=== PATIENT | female | born 1945 | race Caucasian/White ===

== ENCOUNTER 2019-03-15 20:09 | Emergency (ER) | payer MEDICARE, MEDICAID, SELFPAY ==
[2019-03-15 20:10] VITALS: BP 171/84; PULSE 86; RESP 18; TEMP 37.2; O2SAT 98; BMI 36.9
--- NOTE | 2019-03-15 20:23 | RAD_ITS ---
STUDY: X-RAY - PELVIS REASON FOR EXAM: Female, 73 years old. Left leg pain TECHNIQUE: One view of the pelvis was obtained. COMPARISON: 10/16/2015. FINDINGS: There are new severe dystrophic changes of the left femoral head with bony fragmentation of the femoral head. There is Lateral subluxation of the hip. There are degenerative changes of the lumbar spine. There is a total right hip prosthesis. There is significant generalized osteopenia. RAD/Pelvis 1 or 2 Views IMPRESSION: New severe dystrophic changes of the left femoral head with bony fragmentation of the femoral head. There is lateral subluxation of the hip. There are adjacent soft tissue ossifications. Total right hip prosthesis generalized osteopenia Electronically Signed: Major Manzano, at 21:09 EDT Tel , Service support ,
--- NOTE | 2019-03-15 20:40 | RAD_ITS ---
STUDY: X-RAY - LEFT FEMUR REASON FOR STUDY: Female, 73 years old. Left hip pain TECHNIQUE: AP and lateral view(s) of the femur. COMPARISON: 10/16/2015. FINDINGS: There are new severe dystrophic changes of the left femoral head with bony fragmentation of the femoral head. There is Lateral subluxation of the hip. There are degenerative changes of the lumbar spine. There is significant generalized osteopenia. There is mild soft tissue edema. There is a total knee prosthesis. RAD/Femur Min 2 Views IMPRESSION: new severe dystrophic changes of the left femoral head with bony fragmentation of the femoral head. There is Lateral subluxation of the hip Degenerative changes of the lumbar spine Significant generalized osteopenia Mild soft tissue edema Total knee prosthesis Electronically Signed: Major Manzano, at 21:12 EDT Tel , Service support ,
--- NOTE | 2019-03-15 21:40 | ED.VISSUMM ---
- ER Visit Summary Date of Service: 03/15/19 Chief Complaint: Left hip pain. History of Present Illness: The patient is a 73 F known history of arthritis. Saw Dr. Chan in the last several weeks he told her she had degenerative arthritis and she got some type of injection needed for pain her hip injection. Said that lasted about a day and she is had increasing pain the last 2 to 3 weeks. Has had some other falls. Worse with walking. No fever. She is had a prior left knee replacement but no left hip surgery. She had a prior right hip replacement. Physical Examination: Well-appearing older female no acute distress. Vital signs stable afebrile. HEENT exam atraumatic. Nontender. Neck nontender. Lungs clear to auscultation bilaterally. Heart regular rhythm no murmur. Chest wall nontender. Abdomen soft nontender. Extremities moves all 4. Neurovascular intact. Neurologically she is awake and alert. Acute low back pain specifically left hip there is no shortening or rotation. She has had pain with range of motion. The knee is not swollen or red. She is able to flex and extend the left knee. Thank you Test Results: Pelvis x-ray shows severe degenerative arthritis of the left hip. Left femur x-ray 2 views shows prosthetic knee replacement. Emergency Department Course and Treatment: Patient my opinion need to follow-up with orthopedic physician. She is going need a hip replacement I will leave it up to her and her orthopedic physician when that can take place. Should be written for limited [place] for pain. 20 no refill. Repeat exam patient is doing well at 2140. She and I went over her x-rays. Treatment Plan: Low back pain meds and follow-up with her orthopedic physician. Disposition: Discharge Impression: Acute on chronic hip pain secondary to degenerative arthritis. This note was generated with [employer] dictation software. It may contain incorrect words, spelling, and punctuation that were not noted in review of the chart prior to signing ED Disposition - Plan for ED Patient: Referrals: Ayleen Tam MD [Primary Care Provider] -
--- NOTE | 2019-03-15 21:43 | ED.DEP ---
ED Disposition - Plan for ED Patient: Disposition: Home or Assisted Living Instructions: ED Degenerative Joint Disease Prescriptions: Hydrocodone/Acetaminophen [[place] 5-325 Tablet] 1 each PO Q6H PRN PRN #20 tablet PRN Reason: Pain Referrals: Coy Chan MD [STAFF PHYSICIAN] - As soon as possible Additional Instructions: Follow-up with Dr. Chan of orthopedics for discussion of possible left hip replacement. Next [place] for pain.
--- NOTE | 2019-03-15 21:46 | DCINST.ED_ITS ---
ED Disposition - Plan for ED Patient: Disposition: Home or Assisted Living Instructions: ED Degenerative Joint Disease Prescriptions: Hydrocodone/Acetaminophen [[place] 5-325 Tablet] 1 each PO Q6H PRN PRN #20 tablet PRN Reason: Pain Referrals: Coy Chan MD [STAFF PHYSICIAN] - As soon as possible Additional Instructions: Follow-up with Dr. Chan of orthopedics for discussion of possible left hip replacement. Next [place] for pain.
[2019-03-15 21:53] VITALS: BP 156/69; PULSE 82; RESP 16; O2SAT 94
== END 2019-03-15 22:32 | disposition home or self-care (01) ==
PROVIDERS: Emergency Provider Emergency Medicine; Family Provider Internal Medicine; PCP Internal Medicine
DX: M25.552 Pain in left hip (principal); G89.29 Other chronic pain; M16.12 Unilateral primary osteoarthritis, left hip; D64.9 Anemia, unspecified; Z96.652 Presence of left artificial knee joint; Z96.641 Presence of right artificial hip joint; Z86.14 Personal history of Methicillin resistant Staphylococcus aureus infection; Z79.899 Other long term (current) drug therapy
CPT/HCPCS: 72170; 73552; 99283

== ENCOUNTER → 2019-07-01 06:28 | Outpatient (CLI) | payer MEDICARE, MEDICAID, SELFPAY ==
--- NOTE | 2019-07-01 14:33 | STRESSREP ---
Stress Test Report Date: July 01, 2019 Procedure: Pharmacologic stress nuclear imaging study Indications: Preop evaluation Consent: Per the patient Procedure: The patient underwent pharmacologic (Regadenoson) evaluation with a peak heart rate of 84 beats per minute (57 %predicted maximal heart rate) and a peak blood pressure of 148/80 mmHg. The baseline ECG demonstrated normal sinus rhythm, no significant ST-T changes. EKG during lexiscan infusion revealed no significant ischemic changes. EKG post infusion revealed no significant ischemic changes [There were no cardiac dysrhythmias pretest, during pharmacologic infusion, or recovery]. [There was no complaint of chest discomfort during pharmacologic infusion or recovery]. The examination was discontinued secondary to completion of protocol. Impression: 1. Lexiscan stress test test is negative for Lexiscan infusion induced EKG changes of ischemia. 2. Lexiscan stress test test is negative for Lexiscan infusion induced chest pain. 3. Results of the nuclear portion of the test is as below Myocardial perfusion imaging study: Technique: The patient was injected with 10.6 millicuries of technetium 99m Cardiolite and subsequently rest SPECT Cardiolite nuclear imaging was obtained in the horizontal long, vertical long, and short axis views. The patient underwent pharmacologic (Regadenoson) evaluation. Please see above for details. The patient was injected with 31.5 millicuries of technetium 99m Cardiolite and subsequently stress SPECT Cardiolite nuclear imaging was obtained in the horizontal long, vertical long, and short axis views. A gated Cardiolite study at peak stress was obtained. Interpretation: Rest and stress SPECT Cardiolite nuclear imaging status post realignment, normalization, and attenuation correction demonstrate normal myocardial radioisotope uptake at rest. There is mildly decreased radioisotope uptake in the apex and the stress images these findings are suggestive of mild apical and distal anterior ischemia. Gated images reveal no significant regional wall motion abnormalities. The reported LVEF is greater than 70%. Impression: 1. There is mild apical and distal anterior ischemia. 2. Estimated ejection fraction is greater than 70%. This note was generated with [employer]ation software. It may contain incorrect words, spelling, and punctuation that were not noted in checking the note before signing.
== END ==
PROVIDERS: Family Provider Internal Medicine; PCP Internal Medicine; Referring Provider Clinical Nurse Specialist; Visit Provider Clinical Nurse Specialist
DX: Z01.810 Encounter for preprocedural cardiovascular examination (principal); Z13.6 Encounter for screening for cardiovascular disorders
CPT/HCPCS: 78452; 93017; A9500; A4216; J2785

== ENCOUNTER 2019-07-16 06:49 | Day surgery (SDC) | payer MEDICARE, MEDICAID, SELFPAY ==
[2019-07-13 14:56] VITALS: BMI 34.2
--- NOTE | 2019-07-13 16:20 | RAD_ITS ---
STUDY: X-RAY CHEST REASON FOR EXAM: Female, 73 years old. Abnormal stress TECHNIQUE: Frontal and lateral views of the chest. COMPARISON: None. FINDINGS: Calcified granuloma in the right upper lobe. Chronic interstitial lung changes without superimposed acute alveolar disease. There is no demonstrated pleural abnormality. Normal size heart. Normal mediastinum and kassidy. Normal visualized pulmonary arteries. Normal visualized aortic arch and descending thoracic aorta. There are diffuse degenerative changes of the visualized thoracic spine. There is degenerative osteoarthritis of the bilateral shoulders. There is no demonstrated abnormality of the visualized soft tissue structures of the upper abdomen. RAD/Chest PA and Lateral IMPRESSION: Chronic interstitial lung changes without superimposed acute alveolar disease. Electronically Signed: Emmanuel Jones MD at 16:41 EDT Tel , Service support ,
[2019-07-13 17:20] LABS: Absolute Lymphocyte Count 1.48 X10^3/uL (0.83-4.51); Basophil# 0.02 X10^3/uL; Basophil% 0.3 % (0-1); Eosinophil# 0.09 X10^3/uL; Eosinophils% 1.3 % (0-5); Hematocrit 36.9 % (37-47); Hemoglobin 11.9 g/dL (12.0-15.0); Lymphocyte # 1.48 X10^3/ul (4.0); Mean Corp Hgb Conc 32.2 g/dL (32-36); Mean Corpuscular Hgb 30.1 pg (27.0-32.0); Mean Corpuscular Volume 93.2 fL (81-99); Mean Platelet Vol. 9.2 fl (6.2-12.0); Monocyte# 0.47 X10^3/uL; Monocyte% 6.7 % (0-10); NRBC Flagged by Analyzer 0 % (0-5); Neutrophil # 4.96 X10^3/uL (2.7-7.7); Neutrophil % 70.3 % (47-70); Platelet Count 281 K/mm3 (150-450); RBC Distribution Width CV 12.4 % (11.6-14.6); RBC Distribution Width SD 43.2 fl (35.1-43.9); Red Blood Count 3.96 M/mm3 (4.2-5.4); White Blood Count 7.1 K/mm3 (4.4-11.0)
[2019-07-13 17:35] LABS: AST(SGOT) 13 U/L (15-37); Alanine Aminotransfer ALT/SGPT 16 U/L (13-56); Albumin, Serum 3.9 g/dL (3.2-5.0); Alkaline Phosphatase 124 U/L (45-117); Anion Gap 6 (5-15); BUN 21 mg/dL (7-18); BUN/Creat Ratio 29.3 RATIO (10-20); Bilirubin, Direct 0.11 mg/dL (0.00-0.30); Chloride 98 mmol/L (98-107); Creatinine, Serum 0.72 mg/dL (0.55-1.02); EST Glomerular Filtration Rate 84 mL/min (>60); Est Glom Filt Rate - Afr Amer 102 mL/min (>60); Globulin 3.6 g/dL (2.2-4.2); Glucose 83 mg/dL (74-106); Potassium 3.9 mmol/L (3.5-5.1); Protein, Total 7.5 g/dL (6.4-8.2); Sodium Level 131 mmol/L (136-145)
[2019-07-15 07:41] VITALS: BMI 34.2
[2019-07-16] VITALS (28 sets, daily range): BP systolic 127–162; BP diastolic 55–78; PULSE 77–86; RESP 11–25; TEMP 36.3–37.2; O2SAT 94–98; BMI 34.8
--- NOTE | 2019-07-16 07:50 | PCM.HP.BLA ---
Problem List (1) Abnormal nuclear stress test Status: Acute Comment: Mild apical and distal anterior ischemia per Pharm Nuc stress test done 07/01/2019 @[facility] (2) Pre-op examination Status: Acute History and Physical Date of Admission: 07/16/19 [facility] [address] [place] [address] OFFICE VISIT Date of Service: 07/13/19 MR#: [id number] Acct: [id number] Name: BRADLY ARRIAGA Rep #: [id number] : 1945 Provider: Jovani Sosa MD Age/Sex: 73/F Location: [facility] [place] Status: Signed HPI HPI History of Present Illness Surgical H&P: Yes Details: Mrs. Arriaga is a very pleasant 73-year-old Smoking female who quit in 1982After [id number] smoking history, female with history of hypertension, obstructive sleep apnea, hypothyroidism, and Degenerative arthritis. She was referred to us by her PCP after undergoing a Preoperative risk stratification for a hip replacement Lexiscan/MPI On 07/01/2019 with the conflicting results. According to the impression the Lexiscan was negative for ischemia however in the report that showed mildly decreased radioisotope in the apex and stress images suggested of mild apical and distal anterior ischemia. Her overall ejection fraction was preserved at 70%. Patient denies any chest pain, angina, palpitations or shortness of breath. Her stress test is done for risk stratification for upcoming hip surgery.In February 2019 the patient tripped and fell, injuring her left hip, which was originally diagnosed as bursitis and received a steroid injection. When this did not improve, the patient was evaluated by Dr. Chan and apparently she requires left hip surgery. She had previously undergone right hip replacement, as well as left knee replacement, 5 and 2 years ago respectively. Prior to her fall, she denied any symptoms of chest pain, angina and was fairly active despite her arthritis. In our office today her blood pressure is 140/70, pulse is 96 and regular. Her physical exam demonstrates clear lungs bilaterally, regular rate and rhythm, normal S1/S2, no S3 or S4. No murmurs are detected. No edema noted. Her lipids as of 04/22/2019 showed an HDL of 87 and LDL of 137.EKG dated 07/01/2019 shows normal sinus rhythm, normal axis, normal intervals, no evidence of previous myocardial infarction.Echocardiogram is pending. Intake Vital Signs 07/13/19 Height 5 ft 5 in 07/13/19 Weight: 206 lb 07/13/19 Body Mass Index (BMI) 34.2 07/13/19 Blood Pressure 140/70 H 07/13/19 Blood Pressure Location Lt brachial 07/13/19 Respiratory Rate 20 H 07/13/19 Pulse Rate 96 07/13/19 Pulse Source Auscultation Intake Visit Reasons: Normal stress / PCP wants pt to see card. Wrecking Mechanic Required: No Is patient in pain?: No Allergies cat dander Allergy (Intermediate, Verified 07/13/19 15:04) nasal congestion ciprofloxacin [From Cipro] Allergy (Verified 07/13/19 15:04) Hives ciprofloxacin HCl [From Cipro] Allergy (Verified 07/13/19 15:04) Hives clindamycin Allergy (Verified 07/13/19 15:04) Rash doxycycline Allergy (Verified 07/13/19 15:04) Other latex Allergy (Verified 07/13/19 15:04) Hives nitrofurantoin [From Macrobid] Allergy (Verified 07/13/19 15:04) Other Penicillins Allergy (Verified 07/13/19 15:04) Shortness of breath vortioxetine [From Brintellix] Adverse Reaction (Intermediate, Verified 07/13/19 15:04) GI upset methotrexate Adverse Reaction (Unknown, Verified 07/13/19 15:04) unknown trazodone Adverse Reaction (Verified 07/13/19 15:04) Other Medications Levothyroxine [Synthroid] 75 mcg PO DAILY 12/23/13 [History Confirmed 07/12/19] Multivitamins,Therapeutic [Multivitamin] 1 tab PO DAILY 10/16/15 [History Confirmed 07/12/19] Esomeprazole Mag Trihydrate [Nexium] 40 mg PO BID 03/15/19 [History Confirmed 07/12/19] Hydrocodone/Acetaminophen [[place] 5-325 Tablet] 1 ea PO Q6H PRN PRN #20 tab 03/15/19 [Rx] Losartan Potassium [Cozaar] 50 mg PO DAILY 03/15/19 [History Confirmed 07/12/19] Meloxicam 15 mg PO DAILY 03/15/19 [History Confirmed 07/12/19] acetaminophen 500 mg tablet 500 mg PO .COMPLEX PRN 07/12/19 [History Confirmed 07/12/19] abttjru-khcweygexrkep-vzzylaix 250 mg-250 mg-65 mg tablet 2 tab PO Q6H PRN 07/12/19 [History Confirmed 07/12/19] diphenhydramine 25 mg capsule 25 mg PO QDAY PRN cap 07/12/19 [History Confirmed 07/12/19] ferrous gluconate 324 mg (38 mg iron) tablet 324 mg PO DAILY 07/12/19 [History Confirmed 07/12/19] folic acid 400 mcg tablet 400 mcg PO DAILY 07/12/19 [History Confirmed 07/12/19] ketoconazole 2 % shampoo 1 applic TOPICAL DAILY PRN ml 07/12/19 [History Confirmed 07/12/19] prednisone 10 mg tablet 10 mg PO .COMPLEX 07/12/19 [History Confirmed 07/12/19] zolpidem 10 mg tablet 10 mg PO QHS PRN tab 07/12/19 [History Confirmed 07/12/19] duloxetine 60 mg capsule,delayed release 60 mg PO DAILY cap 07/13/19 [History Confirmed 07/13/19] PFSH Medical History Abnormal nuclear stress test (Acute) Obstructive sleep apnea (Chronic) Family History (Updated 07/13/19 @ 15:04 by Sylvie Cole) Father , Hodgkin's age 29 Hodgkin disease Mother Lung cancer Social History (Updated 07/13/19 @ 15:31 by Jovani Sosa MD) Smoking Status: Former smoker quit date: 10/27/82 pack-years: 20 ROS Const Const: Positive for other (Needs preop for left hip replacement, ? abn nuclear stress.); negative for fatigue, weakness, body ache, fever(s), headache(s), chills, frequent falls, night sweats, daytime sleepiness, difficulty sleeping, excessive sweating, weight gain, weight loss, increased appetite, poor appetite or anorexia Eyes Eyes: Negative for blind spots, loss of peripheral vision, transient loss of vision, blurry vision, change in vision, double vision, floaters, tunnel vision or other ENT ENT: Negative for headache(s), dizziness, hearing loss, tinnitus, Nosebleed/epistaxis, balance problems, post nasal drip, lip swelling, tongue swelling, bleeding gums, hoarseness, neck pain, dry mouth or other Cardio Chest Pain: No Palpitations: No Edema: Right (chronic from previous hip and knee replacment) Muscle aches with walking: None Resp Respiratory: Positive for SOB with activity (Only occasionalOut of shape from severe arthritis, cannot walk); negative for SOB at rest, SOB orthopnea\SOB lying down, Cough, Coughing up blood/hemoptysis, chest congestion, pain on inspiration, snoring, stridor, wheezing, crackles, paroxysmal nocturnal dyspnea or other GI GI: Negative nausea, vomiting, heartburn, constipation, belching, bloating, cramping, vomiting blood/hematemesis, bright, red blood in stools, black,tarry stools, loose stools, Difficulty Swallowing or other : Negative for hematuria, frequent nighttime urination/ nocturia, erectile dysfunction or abnormal vaginal bleeding Musc Musc: Negative for muscle aches/ myalgia, muscle weakness, joint pain or balance problems Skin Skin: Negative redness, non-healing lesions, rash, unusual bruising, skin ulcer, wounds, jaundice or other Neuro Neuro: Negative for dizziness, lightheadedness, near syncope, syncope, orthostatic symptoms, frequent falls, headache(s), weakness, confusion, memory loss, restless legs, blurry vision, double vision, vertigo, seizures, lack of coordination or other [place] Hematologic/Lymphatic: Negative for easy bleeding, easy bruising, enlarged lymph nodes or other Endo Endo: Negative for fatigue, cold intolerance, heat intolerance, excessive sweating, flushing, increased thirst/drinking, increased hunger, hair loss, hair growth or other Psych Psych: Negative for anxiety, depression, thoughts of harming anyone, thoughts of harming yourself, visual hallucinations, panic attacks or audible hallucinations Allergy Allergy/Immunology: Negative for throat swelling, Negative for tongue swelling, Negative for hives, Negative for rash, Negative for lip swelling Cardiology Exam Const Appearance: cooperative, healthy appearing and no acute distress Nutritional Appearance: well nourished Orientation: alert, oriented x3 and oriented to person Head Head: normal to inspection, normocephalic and atraumatic Nose: external nose normal Face and Sinus: face symmetric Mouth: oral mucosae normal Eyes General: appearance normal, both eyes and all related structures Eyelids: eyelids normal Conjunctivae: conjunctivae normal Pupils: PERRL and normal by confrontation EOM: EOM intact bilaterally Neck Neck: normal visual inspection and full ROM Carotids: normal carotid upstroke Chest Chest inspection: normal inspection of the chest Auscultation: Bilateral: Clear to Auscultation Cardio Palpation: normal PMI Rate: regular rate Rhythm: regular rhythm Heart sounds: S1 normal and S2 normal GI GI: normal to inspection, no hepatosplenomegaly and bowel sounds present Neuro General: alert, awake, oriented x3, CN's II-XI intact bilaterally and moves all extremities Skin Skin: no rashes or lesions noted Extremities Pulses: Normal: Right Femoral Pulse, Left Femoral Pulse, Right Dorsalis Pedis Pulse, Left Dorsalis Pedis Pulse, Right Posterior Tibial Pulse, Left Posterior Tibial Pulse, Right Radial Pulse, Left Radial Pulse Lower Extremity Edema: None: Bilateral Psych Psychological: normal affect Assessment & Plan 1. Abnormal nuclear stress test R94.39 Mild apical and distal anterior ischemia per Pharm Nuc stress test done 07/01/2019 @[facility] Plan 1. Abnormal nuclear stress test: The patient underwent a preoperative non-walking nuclear stress test which was reportedly abnormal for anterior and apical ischemia. Her EF was estimated to be 70%. It is difficult to determine if the patient has any anginal symptoms as she has been unable to really walk since February 2019. She apparently requires left hip replacement, as a result of her fall in February 2019. In addition she has several risk factors for coronary occlusive disease including age, hypertension, hypercholesterolemia, and previous smoking. In order to confirm/deny the presence of significant coronary obstructive disease prior to her hip surgery in order to ensure safeguard her against acute coronary syndrome perioperatively, I recommended the patient undergo a diagnostic left heart catheterization. The risks/benefits of the procedure including specific attention to lack of on-site surgical back-up, were thoroughly explained to the patient and informed consent was obtained. In addition she will undergo a 2D echo with Doppler to document her LV function, pulmonary pressures given her obstructive sleep apnea, and valvular status. She will be loaded with Plavix 300 mg x 1 now followed by 75 mg p.o. daily as well as baby aspirin 81 mg a day.Should she have no significant occlusive disease, we will discontinue her Plavix as well as her baby aspirin as she is on extra strength Excedrin for her joint aches. She has no significant coronary occlusive disease she will be deemed low risk for noncardiac surgery. Orders Orders: 12 Lead EKG performed by [facility] Today Left Heart Cath/COR/LV Percut Today Basic Metabolic Profile (BMP) Today CBC W/Diff, Automated Today Chest PA and Lateral Today 2. Obstructive sleep apnea G47.33 Per sleep study done 05/02/2016 Dr. Emmanuel Barnett [facility] Plan 2. Obstructive sleep apnea: Patient uses her CPAP intermittent knee. I encouraged her to do so on a regular basis. Orders Orders: 12 Lead EKG performed by [facility] Today Echo Complete Today Chest PA and Lateral Today 3. Hyperlipidemia E78.5 Plan 3. Hyperlipidemia: Once we get a reading for her coronary arteries, we will make decision regarding cholesterol management. Would recommend statin based medications assuming it does not cause myalgias. 4. Return to office in 6 months. This note was generated using a voice recognition system and there may be incorrect words, spelling or punctuation that were not noted when reviewing the office note prior to saving. Plan Detail Other Orders Orders: 12 Lead EKG performed by [facility] Today I10 Prothrombin Time w/INR Today S82.102A Chest PA and Lateral Today I10 Lipid Profile Today E78.00 Liver Profile Today E78.00 Follow Up +6M (Ian) Coding Level of Care Code Off vis,new,level 4 Diagnoses Abnormal nuclear stress test R94.39 Obstructive sleep apnea G47.33 Hyperlipidemia E78.5 Coding Level of Care Code Off vis,new,level 4 Diagnoses Abnormal nuclear stress test R94.39 Obstructive sleep apnea G47.33 Hyperlipidemia E78.5 Supplemental Info Supplemental Information Diagnostics Electrocardiogram 10/16/15 Stress Test Nuclear Medicine 07/01/19 Stress Test 07/01/19 07/13/19 1531 <Electronically signed by Jovani Sosa MD> Date Jovani Sosa MD Cosigner Signature: Date (if applicable) CC: Ayleen Tam MD ~ Interventional cardiology addendum: Patient seen and examined and no interim changes since her last visit in the office. The risks/benefits of the procedure were thoroughly explained the patient and informed consent was obtained including specific attention to lack of on-site surgical back-up, and the patient is agreed to proceed. Cardiac catheterization results to follow.
[2019-07-16 08:40] LABS: ACT Activated Clotting Time 208 sec (74-137)
--- NOTE | 2019-07-16 09:04 | EKG12_ITS ---
Test Reason : AM Blood Pressure : / mmHG Vent. Rate : 079 BPM Atrial Rate : 079 BPM P-R Int : 162 ms QRS Dur : 094 ms QT Int : 420 ms P-R-T Axes : 019 -34 038 degrees QTc Int : 481 ms Normal sinus rhythm Left axis deviation Abnormal ECG Confirmed by AMA SALAZAR, SARAI ([id number]), editor at large JOSELYN TERAN ([id number]) on 07/21/2019 11:08:03 AM Referred By: Jovani Sosa Confirmed By:SARAI SERRATO MD
[2019-07-16] MEDS: 0.9% Normal Saline 1,000 ML 150 ML IV (09:27)
--- NOTE | 2019-07-16 09:39 | PCM.DC.CCA ---
Discharge Diet: Low fat/ Low Cholesterol Discharge Activity: Return to Normal Activity May shower in (days): 1 Lifting Restrictions: 10 pounds and also avoid any pushing or pulling for 3 days after your test. Call your doctor if your incision/area has: Continuous Slow Oozing, Sudden Increased Bleeding, Increased Pain/ Swelling, Increased Redness, Foul Smelling Discharge, Swelling at the incision site Call your doctor if you observe: Fever of 101 or Higher, Shortness of breath, Chest pain Remove Dressing in (days):: 1 Additional Dressing/Incision Instructions:: Keep the dressing (bandage) on until the next morning. You may then shower, but do not take a tub bath for 5 days after your test. It is normal to have some tenderness and discomfort at the puncture site. Sometimes bruising also occurs. However, if pain, numbness, or coldness occurs below the puncture site (in your leg, toes, arms or fingers) call your doctor at once. You may have a small, marble sized knot at the puncture site. This is normal. Do not rub it. It will go away in 4-6 weeks. Bleeding can occur from the area where the puncture was done. Blood may spurt or drip from the site. If blood spurts, apply pressure right away to stop bleeding and call 911. Although rare, bleeding into the tissue (hematoma) can also occur. If this happens, a large, firm area goose egg under the skin will appear. If any of these occur, lie down as flat as you can and have someone apply firm pressure to the cath site with a gauze pad or a clean washcloth for 10-15 minutes. Call 911 or go to the Emergency Department. Additional Instructions: You will need to stay on your Plavix for at least one year prior to stopping it, Aspirin will be life long. At your next appt we will talk more about cardiac rehab. Allergies/Adverse Reactions: Allergies cat dander Allergy (Intermediate, Verified 07/13/19 15:04) nasal congestion ciprofloxacin [From Cipro] Allergy (Verified 07/13/19 15:04) Hives ciprofloxacin HCl [From Cipro] Allergy (Verified 07/13/19 15:04) Hives clindamycin Allergy (Verified 07/13/19 15:04) Rash doxycycline Allergy (Verified 07/13/19 15:04) Other latex Allergy (Verified 07/13/19 15:04) Hives nitrofurantoin [From Macrobid] Allergy (Verified 07/13/19 15:04) Other Penicillins Allergy (Verified 07/13/19 15:04) Shortness of breath vortioxetine [From Brintellix] Adverse Reaction (Intermediate, Verified 07/13/19 15:04) GI upset methotrexate Adverse Reaction (Unknown, Verified 07/13/19 15:04) unknown trazodone Adverse Reaction (Verified 07/13/19 15:04) Other [place] FEELING Medications to take at Discharge Levothyroxine [Synthroid] 75 mcg PO DAILY 12/23/13 Multivitamins,Therapeutic [Multivitamin] 1 tab PO DAILY 10/16/15 Esomeprazole Mag Trihydrate [Nexium] 40 mg PO BID 03/15/19 Hydrocodone/Acetaminophen [[place] 5-325 Tablet] 1 each PO Q6H PRN PRN #20 tablet 03/15/19 Losartan Potassium [Cozaar] 50 mg PO DAILY 03/15/19 Meloxicam 15 mg PO DAILY 03/15/19 acetaminophen 500 mg tablet 500 mg PO .COMPLEX PRN 07/12/19 luoniot-ibcksdjvbcjol-phkycefi 250 mg-250 mg-65 mg tablet 2 tab PO Q6H PRN 07/12/19 diphenhydramine 25 mg capsule 25 mg PO QDAY PRN cap 07/12/19 ferrous gluconate 324 mg (38 mg iron) tablet 324 mg PO DAILY 07/12/19 folic acid 400 mcg tablet 400 mcg PO DAILY 07/12/19 ketoconazole 2 % shampoo 1 applic TOPICAL DAILY ml 07/12/19 prednisone 10 mg tablet 10 mg PO .COMPLEX 07/12/19 zolpidem 10 mg tablet 10 mg PO QHS PRN tab 07/12/19 aspirin 81 mg tablet,delayed release 81 mg PO DAILY #30 tab 07/13/19 clopidogrel 75 mg tablet 75 mg PO .COMPLEX #30 tab 07/13/19 duloxetine 60 mg capsule,delayed release 60 mg PO DAILY cap 07/13/19 Primary Care Physician: Alyeen Tam MD [Primary Care Provider] - Please follow up with your Primary Care Physician in: 2-4 weeks Test Results: Test results from this visit will be discussed in further detail at your follow-up appointment, if applicable. Please Follow Up With: Savi Schaeffer PA When: 08/05/2019 at 1030 Cardiac Rehabilitation Info Cardiac Rehabilitation Program Information: Cardiac Rehabilitation is important for patients like you who are recovering from a heart problem. Cardiac rehabilitation programs are recognized as integral to the continued care of the patient with coronary heart disease. The cardiac rehabilitation program is designed to optimize a patient's physical, psychological, and social functioning. Health life care planner work in cardiac rehabilitation programs and assist you with getting the treatments you need to get stronger and healthier - like exercise, healthy eating habits, and medications. Cardiac rehabilitation has been show to help people with heart problems live longer and have better life enjoyment than people who do not go to cardiac rehabilitation. Please contact the Cardiac Rehabilitation Program at [facility] at in two weeks if you have not heard from them.
--- NOTE | 2019-07-16 10:00 | EKG12_ITS ---
Test Reason : POST PCI Blood Pressure : / mmHG Vent. Rate : 082 BPM Atrial Rate : 082 BPM P-R Int : 172 ms QRS Dur : 100 ms QT Int : 420 ms P-R-T Axes : 052 -31 026 degrees QTc Int : 490 ms Normal sinus rhythm Left axis deviation Prolonged QT Poor R-Wave Progression Abnormal ECG Confirmed by AMA SALAZAR, SARAI ([id number]), art editor JOSELYN TERAN ([id number]) on 07/21/2019 11:09:24 AM Referred By: Jovani Sosa Confirmed By:SARAI SERRATO MD
[2019-07-16 10:46] LABS: ACT Activated Clotting Time 169 sec (74-137)
--- NOTE | 2019-07-16 10:59 | CRPHASE1_ITS ---
Patient Communication PHII Cardiac Rehab Discussed with Patient:: Yes Guide to Cardiac Rehab Given to Patient:: Yes Cardiac Rehab Facility Choice List Given to Patient:: Yes - chooses [facility] if able Choice Program [facility] CR PHII:: Communication Given to CR, Refer to [facility] Choice Program Other:: Communication Given to CR, With permission faxed order and referral information Refer Phase II Cardiac Rehab:: Yes Sessions:: 36 sessions - 3 days/wk, 12 weeks Risk Factors/Lifestyle Smoking Status: Former smoker Hx Obesity: Yes Height: 1.65 m Weight:: 94.9 kg BMI: 34.8 Family History: Family History (Last Updated 07/13/19 @ 15:04 by Sylvie Cole) Father Hodgkin disease Mother Lung cancer Phase I Education Given On:: [place], Nutrition, Antiplatelet medication, CHF, Smoking cessation, Diabetes - Type I, Diabetes - Type II Issues Affecting Care:: None Knowledge of Condition:: Yes Medical/Surgical History Hypertension:: Yes Cardiac Rehabilitation Info Cardiac Rehabilitation Program Information: Cardiac Rehabilitation is important for patients like you who are recovering from a heart problem. Cardiac rehabilitation programs are recognized as integral to the continued care of the patient with coronary heart disease. The cardiac rehabilitation program is designed to optimize a patient's physical, psychological, and social functioning. Health primary care nurse work in cardiac rehabilitation programs and assist you with getting the treatments you need to get stronger and healthier - like exercise, healthy eating habits, and medications. Cardiac rehabilitation has been show to help people with heart problems live longer and have better life enjoyment than people who do not go to cardiac rehabilitation. Please contact the Cardiac Rehabilitation Program at [facility] at in two weeks if you have not heard from them.
--- NOTE | 2019-07-16 11:03 | CRPH1.INSTRU ---
General Education CAD and cardiac anatomy and function:: Patient communicates acknowledgment Explanation of diagnoses and procedures:: Patient communicates acknowledgment Sign/Symptoms of SC:: Patient communicates acknowledgment Antiplatelet therapy: Patient communicates acknowledgment Proper use of NTG-SL: Not instructed Emergency procedures and activation of EMS: Patient communicates acknowledgment Compliance of all prescribed medications: Patient communicates acknowledgment Smoking Nicotine/Smoking Response Code:: Patient communicates acknowledgment Dyslipidemia Dyslipidemia Response Code:: Patient communicates acknowledgment Overweight/Obesity Patient Overweight/Obesity Risk Factors Are:: Obesity - > or = 30 Recommendations Include:: Weight loss of 5-10%, Reduced calorie diet, Exercise 5-7 times/week Overweight/Obesity:: Patient communicates acknowledgment Hypertension Recommendations Include:: Maintain BP <130/85, BP <130/80 if diabetic, DASH dietary guidelines, Decrease/maintain normal body weight, Moderation of ETOH Hypertension:: Patient communicates acknowledgment Heart Disease Heart Disease Response Code:: Patient communicates acknowledgment Diabetes Diabetes:: Patient communicates acknowledgment Metabolic Syndrome Metabolic Syndrome Response Code:: Patient communicates acknowledgment Sedentary Sedentary Response Code:: Patient communicates acknowledgment Stress Stress Response Code:: Patient communicates acknowledgment
[2019-07-16] MEDS: 0.9% NaCl Peripheral Flush Adult/Peds IV (11:38)
[2019-07-16] MEDS: Multivitamins,Therapeutic Tablet 1 TABLET PO (13:24)
[2019-07-16] MEDS: Meloxicam 15 MG Tablet PO (13:24)
[2019-07-16] MEDS: Pantoprazole Sodium 40 MG Tablet PO ×2 (13:24→22:20)
[2019-07-16] MEDS: Folic Acid 1 MG Tablet 0.5 MG PO (13:24)
[2019-07-16] MEDS: Ferrous Gluconate 324 MG Tablet PO (13:25)
[2019-07-16] MEDS: Atorvastatin Calcium 20 MG Tablet PO (22:20)
[2019-07-17] VITALS (15 sets, daily range): BP systolic 100–147; BP diastolic 39–78; PULSE 75–84; RESP 8–19; TEMP 36.6–37.2; O2SAT 93–96
[2019-07-17 04:12] LABS: Hematocrit 34.2 % (37-47); Hemoglobin 11.2 g/dL (12.0-15.0); Mean Corp Hgb Conc 32.7 g/dL (32-36); Mean Corpuscular Hgb 30.3 pg (27.0-32.0); Mean Corpuscular Volume 92.4 fL (81-99); Mean Platelet Vol. 8.9 fl (6.2-12.0); Platelet Count 236 K/mm3 (150-450); RBC Distribution Width CV 12.6 % (11.6-14.6); RBC Distribution Width SD 42.8 fl (35.1-43.9); White Blood Count 5.2 K/mm3 (4.4-11.0)
[2019-07-17 04:22] LABS: Scan Indicated on CBC? Y/N NO
[2019-07-17 05:00] LABS: ALB/GLOB Ratio 1.1 RATIO (0.9-2.4); AST(SGOT) 14 U/L (15-37); Alanine Aminotransfer ALT/SGPT 17 U/L (13-56); Albumin, Serum 3.3 g/dL (3.2-5.0); Alkaline Phosphatase 105 U/L (45-117); Anion Gap 6 (5-15); BUN 14 mg/dL (7-18); BUN/Creat Ratio 22.4 RATIO (10-20); Calcium,Total 8.5 mg/dL (8.5-10.1); Chloride 101 mmol/L (98-107); Cholesterol 203 mg/dL (200); Creatinine, Serum 0.62 mg/dL (0.55-1.02); EST Glomerular Filtration Rate 99 mL/min (>60); Est Glom Filt Rate - Afr Amer 120 mL/min (>60); Estimated Creatinine Clearance 41.97 ml/min; Glucose 86 mg/dL (74-106); High Density Lipoprotein 61 mg/dL; Potassium 3.7 mmol/L (3.5-5.1); Protein, Total 6.3 g/dL (6.4-8.2); Sodium Level 136 mmol/L (136-145); Triglycerides 113 mg/dL; Very Low Density Lipoprotein 23 mg/dL (5-40)
[2019-07-17] MEDS: Levothyroxine 75 MCG Tablet PO (05:39)
[2019-07-17] MEDS: Aspirin E.C. 81 MG Tablet PO (08:33)
[2019-07-17] MEDS: Pantoprazole Sodium 40 MG Tablet PO (08:33)
[2019-07-17] MEDS: Clopidogrel Bisulfate 75 MG Tablet PO (08:34)
[2019-07-17] MEDS: Folic Acid 1 MG Tablet 0.5 MG PO (08:34)
[2019-07-17] MEDS: Ferrous Gluconate 324 MG Tablet PO (08:34)
[2019-07-17] MEDS: DULoxetine Hcl 60 MG Capsule PO (08:36)
[2019-07-17] MEDS: Multivitamins,Therapeutic Tablet 1 TABLET PO (08:36)
[2019-07-17] MEDS: Meloxicam 15 MG Tablet PO (08:36)
[2019-07-17] MEDS: Losartan Potassium 50 MG Tablet PO (08:37)
--- NOTE | 2019-07-17 12:49 | PN.CARD_ITS ---
Subjectve: Patient denies any symptoms of chest discomfort or shortness of breath she cannot ambulate second severe arthritis the left hip joint. She is eager to be discharged home and she informs me that she has home health care comes in 3 days a week and she can able to get around and take care of her active daily living with no limitations in spite of severe pain that she has in her left hip joint. She has an appointment to see her primary care physician on Friday which she plans to keep Objective: Vital Signs Temp Pulse Resp BP Pulse Ox 97.8 F 79 16 128/56 H 95 07/17/19 08:00 07/17/19 11:54 07/17/19 11:00 07/17/19 11:00 07/17/19 11:00 Oxygen Delivery Method Room Air Weight: 209 lb 14.081 oz Body Mass Index (BMI) 34.8 Intake and Output for Last 24 Hours 07/15/19 07/16/19 07/17/19 23:59 23:59 23:59 Intake Total 1360 / 1840 540 / 540 Output Total 2000 / 2550 900 / 900 Balance -640 / -710 -360 / -360 General: Healthy Appearing, Oriented x 3 HEENT: PERRL Neck: Supple Lungs: Clear to auscultation Cardiovascular: Regular Rhythm Vascular: No Carotid Bruits Abdomen: Bowel Sounds Present, Soft, Non Tender Extremities: No edema Neurological: No Focal Motor or Sensory Deficit Psych/Mental Status: Appropriate, Normal Affect 07/16/19 08:00: PT Cancelled, INR Cancelled 07/17/19 04:00: WBC 5.2, RBC 3.70 L, Hgb 11.2 L, Hct 34.2 L, MCV 92.4, MCH 30.3, MCHC 32.7, Plt Count 236, MPV 8.9 07/17/19 04:00: Sodium 136, Potassium 3.7, Chloride 101, Carbon Dioxide 29.0, Anion Gap 6, BUN 14, Creatinine 0.62, Est GFR (MDRD) Af Amer 120, Est GFR (MDRD) Non-Af 99, BUN/Creatinine Ratio 22.4 H, Glucose 86, Calcium 8.5, Total Bilirubin 0.60, Triglycerides 113, Cholesterol 203 H, LDL Cholesterol 119, VLDL Cholesterol 23, HDL Cholesterol 61 Rhythm: EKG: ECHO: Stress Test: Cardiac Cath: PCI: CT Surgery: Holter monitor: EPS: PPM: CXR: Chest CT Scan: Medical Necessity - Tobacco Use Smoking Status: Former smoker Assessment/Plan 1. status post elective angioplasty of the proximal segmnet of medium sized diagonal branch of LAD. patient has done quite well with no symptoms of chest discomfort or shortness of breath postprocedure. She remains on dual antiplatelet therapy aspirin and Plavix and Plavix was initiated prior to the hospitalization after she had abnormal stress test. counselled the importance of taking plavix and aspirin at least for the next 3 to 6 months. since this was elective angioplasty patient will discuss with his primary deputy chief counsel Dr. Sosa the possibility of having the left hip replacement 3 months after elective drug eluting stent placement. 2. left hip OA-stable on prednisone 10mg qd plus meloxicam. Follow-up with Dr. Sosa in the next 2 weeks post hospital discharge
--- NOTE | 2019-07-22 09:59 | CL.I_ITS ---
Patient Name: BRADLY REDDY Study Date: 07/16/2019 Performing: Jovani Sosa MD Ht: 64.96 inches 165 cm : 1945 Wt: 205.03 lbs 93 kg Age: 73 Gender: female BSA: 2 PROCEDURE(S) PERFORMED TS24-YEZ/COR/LV LO18-FIU W OR WO PTCA, SINGLE CORONARY ARTERY CLINICAL PROFILE AND CO-MORBIDITIES Indications: Suspected CAD, Pre-Operative Evaluation Heart Failure: None Stress/Imaging Date: 07/11/2019 Stress Test with SPECT MPI: Positive Low Risk Angina Classification Anginal Classification w/in 2 Weeks: No symptoms CAD Presentations: No Sxs, no angina. Comorbidities/Risk Factors: Hypertension Dyslipidemia CONCLUSIONS Non obstructive coronary arteries Single vessel CAD of the proximal DIAG#1 with post stenotic dilatation. Normal Left Ventricular systolic function LVEF: by LV gram 65 % Non obstructive coronary arteries Successful PTCA/EZEKIEL proximal DIAG#1 with a 2.5 x 16 Promus Synergy, post dilated with a 3.0 x 8 NC Ba [place]; 85%-->0%, no dissection. RECOMMENDATIONS Referred for immediate PCI Management as per referring Search Specialist Manual sheath removal once ACT<170. Pt is too thin for Mynx and has previous right hip replacement. Pt will need at least 6 months of DAPT prior to holding plavix for L hip replacement. Pt may proceed with L hip replacement if surgeon is willing to proceed on asa/plavix. DESCRIPTION OF PROCEDURE The patient arrived to the procedure lab. The risks and benefits of the procedure as well as a full d escription of our services here and lack of surgical backup were fully explained to the patient and/o r their significant other prior to the catheterization. The Timeout was completed, verifying the jj ect patient and procedure. The patient's procedural site was prepped and draped in the usual fashion. Local anesthetic was given subcutaneously to right groin region with Lidocaine 2%. Using a modified Seldinger technique, arterial access was obtained via the right femoral artery, a 4Fr sheath was inse rted. Left Coronary Artery selective angiography was performed in multiple views using a 4 Fr. JL5 c atheter. Right Coronary Artery selective angiography was then performed in multiple views using a 4 F r. 3DRC catheter. Left Ventriculography was performed in OYO projection using a 4 Fr. Pigtail cathete r. LV to AO pullback pressures were then recordedThe images were reviewed and options discussed. A decision was then made to proceed with an Intervention, IVUS or other adjunct procedure. Arterial sheath was exchanged for a 6 Fr Sheath. EBU 3.5 Guide catheter was inserted and engaged into the LCA. 2 x 12 Emerge Balloon catheter was inserted. Balloon catheter was advanced across lesio n in the first diagonal, proximal. PTCA balloon inflated at 8 atms for 20 secs. 2.5 x 16 Synergy Drug Eluting stent was inserted. Balloon catheter was advanced across lesion in the first diagonal, proxi mal. 3 x 8 NC Emerge Balloon catheter was inserted post stent. Angiogram performed post balloon dilat ation. The arterial sheath was sutured in place and capped CORONARY ANGIOGRAPHY DOMINANCE: Right Dominant LEFT HEART ASSESSMENT Left Ventricular Ejection Fraction: by LV Gram 65 % Normal Left Ventricular systolic function Normal LV wall motion LEFT MAIN: Angiographically normal LEFT ANTERIOR DESCENDING ARTERY: Non-obstructive DIAGONAL 1: Proximal - 85 % Stenosis CIRCUMFLEX ARTERY: Mild luminal irregularities less than 30% RIGHT CORONARY ARTERY: Non-obstructive RT PDA: Proximal - Non-obstructive INTERVENTION INFORMATION LESION SITE: 1st Diagonal (Proximal) Lesion Complexity: Non-High/Non-C, lesion at bifurcation: No, thrombus present: No, lesion length: 16 mm, culprit lesion: Yes Pre Stenosis: 85 % Pre intervention SUHAS flow: 3 PROCEDURE: Drug Eluting Stent with pre and post dilatation Post Stenosis: 0 % Post intervention SUHAS flow: 3 Lesion Devices: Werner .014 [employer] [place] Straight 190cm Medtronic 6 Fr EBU3.5 100cm Guide Catheter Dav Sci EMERGE MR 2.00x12 BALLOON Dav Sci Synergy MR EZEKIEL 2.50x16 Dav Sci NC EMERGE MR 3.00x08 BALLOON COMPLICATIONS No Complications PROCEDURE MEDICATIONS Versed 1 mg IV Oxygen: 2 L/min via nasal cannula Heparin 6000 unit(s) IV 07/16/2019 08:14:01 Nitro 200 mcg IC 07/16/2019 08:15:24 Nitro 200 mcg IC 07/16/2019 08:15:24 SUMMARY OF HEMODYNAMIC DATA Time AIR REST ECG 07:19:27 AO 142/65 (97) SA 08:04:46 LV 140/-20, 5 08:12:10 LV 141/-21, 3 08:12:16 LVp 140/-24, 4 08:12:23 AO 144/58 (95) 08:12:28 08:51:32 Signed By Jovani Sosa MD On 07/16/2019 08:55:06 Jovani Sosa MD
== END 2019-07-17 12:30 | disposition home or self-care (01) ==
LOC: CLSP 06:51 → ICU 08:58
PROVIDERS: Family Provider Internal Medicine; PCP Internal Medicine; Referring Provider Internal Medicine Cardiovascular Disease; Visit Provider Internal Medicine Cardiovascular Disease
DX: I25.10 Atherosclerotic heart disease of native coronary artery without angina pectoris (principal); G47.33 Obstructive sleep apnea (adult) (pediatric); E78.00 Pure hypercholesterolemia, unspecified; I10 Essential (primary) hypertension; E03.9 Hypothyroidism, unspecified; M19.90 Unspecified osteoarthritis, unspecified site; Z79.82 Long term (current) use of aspirin; Z79.02 Long term (current) use of antithrombotics/antiplatelets; Z79.899 Other long term (current) drug therapy; Z87.891 Personal history of nicotine dependence
CPT/HCPCS: 36415; 71046; 80048; 80053; 80061; 80076; 85025; 85027; 85347; 85610; 92928; 93005; 93458; 99152; 99153; J7030; J7040; Q9967; A4216; C1725; C1769; C1874; C1887; C1894; C9600

== ENCOUNTER → 2019-08-05 10:56 | Outpatient (CLI) | payer MEDICARE, SELFPAY ==
[2019-07-16 09:01] VITALS: BMI 34.8
[2019-07-16 11:02] VITALS: BMI 34.8
--- NOTE | 2019-08-05 10:59 | ECHOD_ITS ---
Reason For Study: CAD Procedure This was a 2D Doppler, Color Flow transthoracic echocardiogram. Exam performed in department. Left Ventricle Moderate concentric left ventricular hypertrophy. The estimated ejection fraction is 65 %. Stage 1 diastolic dysfunction. No regional wall motion abnormalities noted. Right Ventricle Normal size and thickness. Normal systolic function. Atria Normal left atrium. Normal right atrium. Hypermobile atrial septum. Bubble contrast study negative for right to left interatrial shunt. Mitral Valve The mitral valve is structurally normal. No prolapse or stenosis seen. Tricuspid Valve Normal tricuspid valve. Trivial tricuspid valve insufficiency. Right ventricular systolic pressure estimated to be 26 mmHg. Aortic Valve Trisinus/trileaflet aortic valve. Mild focal aortic valve thickening. There is no aortic stenosis. Pulmonic Valve The pulmonic valve is not well visualized. Great Vessels Normal aortic root. Normal arch. Normal inferior vena cava. Inferior vena cava collapse with sniff. Pericardium/Pleural No pericardial effusion. Medication 22 gauge I.V. with prn adaptor inserted into right arm. Performed a rapid injection of agitated mix of 9 cc saline and 1cc air to assess for atrial septal defect. MMode/2D Measurements & Calculations LVIDd: 2.9 cm IVSd: 1.5 cm Ao root diam: 3.3 cm LVIDs: 2.2 cm LVPWd: 1.5 cm RVDd: 3.2 cm FS: 25.7 % LAV(MOD-bp): 43.3 ml LVAd ap4: 28.5 cm2 SV(MOD-sp4): 48.2 ml LAV(MOD-bp) Indexed: 21.9 ml/m2 EDV(MOD-sp4): 81.4 ml LAV(MOD-sp2): 53.6 ml EDV(sp4-el): 84.5 ml LAV(MOD-sp4): 33.6 ml LVAs ap4: 15.8 cm2 ESV(MOD-sp4): 33.2 ml ESV(sp4-el): 32.4 ml EF(MOD-sp4): 59.2 % EF(sp4-el): 61.7 % SV(sp4-el): 52.2 ml LA A4 area: 14.9 cm2 LA dimension(2D): 3.6 cm RA A4 area: 14.6 cm2 Doppler Measurements & Calculations MV E max bao: 58.3 cm/sec Lat Peak E' Bao: 8.1 cm/sec Med Peak E' Bao: 4.0 cm/sec MV A max bao: 105.3 cm/sec E/E' lat: 7.2 E/E' med: 14.6 MV E/A: 0.55 Ao V2 max: 137.7 cm/sec LV V1 max: 115.5 cm/sec PA V2 max: 92.0 cm/sec Ao max P.6 mmHg LV V1 max P.3 mmHg TR max bao: 229.0 cm/sec TR max P.0 mmHg Interpretation Summary Moderate concentric left ventricular hypertrophy. The estimated ejection fraction is 65 %. Stage 1 diastolic dysfunction. Bubble contrast study negative for right to left interatrial shunt. Trivial tricuspid valve insufficiency. Right ventricular systolic pressure estimated to be 26 mmHg. There is no comparison study available. Ordering Physician: Jovani Sosa Referring Physician: Ayleen Tam M.D. Performed By: Ondina Pham RDCS
== END ==
PROVIDERS: Family Provider Internal Medicine; PCP Internal Medicine; Referring Provider Internal Medicine Cardiovascular Disease; Visit Provider Internal Medicine Cardiovascular Disease
DX: G47.33 Obstructive sleep apnea (adult) (pediatric) (principal)
CPT/HCPCS: 93306; A4216

== ENCOUNTER → 2020-05-17 13:12 | Outpatient (CLI) | payer MEDICARE, MEDICAID, SELFPAY ==
[2019-07-16 11:02] VITALS: BMI 34.8
[2020-03-31 09:30] VITALS: BMI 34.9
--- NOTE | 2020-05-17 13:14 | STEWCON_ITS ---
Reason For Study: CAD, Pre-Op Stress Results Protocol: Dobutamine Stress Echo With Definity Maximum Predicted HR: 144 bpm Target HR: 122 bpm % Maximum Predicted HR: 88 % DurationHeart Rate Stage (mm:ss) (bpm) BP Comment Baseline 82 130/81No Chest Pain; 4 ML Diluted Definity DSE 10 MCG 4:19 81 138/82No Chest Pain DSE 20 MCG 3:00 107 154/78No Chest Pain DSE 30 MCG 3:00 120 122/67No Chest Pain DSE 40 MCG 1:54 127 148/67No Chest Pain Recovery 96 117/72No Chest Pain Stress Duration: 12:13 mm:ss Maximum Stress HR: 127 bpm METS: 1 Baseline Echocardiogram Findings The estimated ejection fraction is 65 %. Stress Echo Wall motion Data Resting WM Intermediate WM Stress WM Resting Wall Motion Wall Motion Stress No regional wall motion No regional wall motion abnormalities noted. abnormalities noted. EKG Data The baseline ECG displays normal sinus rhythm. The patient was titrated from 10 mcg to a maximum of 40 mcg of dobutamine during the stress. The maximum heart rate attained was 127 beats per minute. This was 88% of maximum predicted heart rate. During dobutamine infusion, there were no ST or T wave changes noted to suggest ischemia. No clinical angina was noted. No arrhythmias noted. Interpretation Summary The estimated ejection fraction is 65 %. Normal, adequate, dobutamine echocardiogram. Negative for ischemia by EKG and echocardiographic criteria. No anginal symptoms noted. No arrhythmias noted. Appropriate blood pressure response to dobutamine. Test terminated due to attainment target heart rate. Final LVEF is 75%. Patient tolerated procedure well. No complications. Ordering Physician: Jovani Sosa Referring Physician: Ayleen Tam Performed By: Kayla Lee, RDCS, RVT
== END ==
PROVIDERS: PCP Internal Medicine; Referring Provider Internal Medicine Cardiovascular Disease; Visit Provider Internal Medicine Cardiovascular Disease
DX: Z01.818 Encounter for other preprocedural examination (principal); I25.10 Atherosclerotic heart disease of native coronary artery without angina pectoris; M17.11 Unilateral primary osteoarthritis, right knee; Z95.5 Presence of coronary angioplasty implant and graft
CPT/HCPCS: 93017; 93350; J7040; Q9957; A4216; C8928

== ENCOUNTER → 2020-07-14 14:01 | Outpatient (CLI) | payer MEDICARE, MEDICAID, SELFPAY ==
[2019-07-16 11:02] VITALS: BMI 34.8
[2020-03-31 09:30] VITALS: BMI 34.9
--- NOTE | 2020-07-14 14:05 | CT_ITS ---
STUDY: CT SCAN HIP LEFT REASON FOR EXAM: Female, 74 years old. AUGIE PROTOCOL, UNILATERAL OSTEOARTHRITIS RADIATION DOSAGE (If Supplied By Facility): CTDIvol = ( 14.69 ) mGy, DLP = ( 1008.60 ) mGycm. Individualized dose optimization techniques were used for this CT.? TECHNIQUE: Multiple axial tomographic images were obtained without intravenous contrast administration. Coronal and sagittal reconstruction was obtained as well. COMPARISON: Comparison is made with prior examination dated 10/16/2015. FINDINGS: There is evidence of a marked degree of a degenerative changes and spondylosis of the lower lumbar spine with facet hypertrophy and the spinal stenosis at the L5-S1 and L4-L5 levels. The patient is status post right hip replacement. There has been resection of the left femoral head and neck to the level of the trochanter. Soft tissue density is seen in its place. There is cephalic migration of the left femur. CT/Extremity Lower without Contra IMPRESSION: Status post resection of the left femoral head and neck with soft tissue proliferation at the level of the left hip joint. There is cephalic migration of the left femur. Status post right total hip replacement. Degenerative changes and spinal stenosis in the visualized lower lumbar spine. Electronically Signed: Preet Jewell, at 14:41 EDT , Service support ,
[2020-07-14 15:52] LABS: Absolute Lymphocyte Count 0.87 X10^3/uL (0.83-4.51); Absolute Neutrophil Count 4.6 X10^3/uL (2.0-7.7); Basophil# 0.02 X10^3/uL; Basophil% 0.3 % (0-1); Eosinophil# 0.04 X10^3/uL; Eosinophils% 0.7 % (0-5); Hematocrit 38.2 % (37-47); Hemoglobin 12.3 g/dL (12.0-15.0); Lymphocyte # 0.87 X10^3/ul (4.0); Lymphocyte % 14.8 % (19-41); Mean Corp Hgb Conc 32.2 g/dL (32-36); Mean Corpuscular Hgb 29.8 pg (27.0-32.0); Mean Corpuscular Volume 92.5 fL (81-99); Mean Platelet Vol. 8.8 fl (6.2-12.0); Monocyte# 0.34 X10^3/uL; Monocyte% 5.8 % (0-10); NRBC Flagged by Analyzer 0 % (0-5); Neutrophil # 4.58 X10^3/uL (2.7-7.7); Neutrophil % 78.1 % (47-70); Platelet Count 298 K/mm3 (150-450); RBC Distribution Width SD 43.7 fl (35.1-43.9); Red Blood Count 4.13 M/mm3 (4.2-5.4); White Blood Count 5.9 K/mm3 (4.4-11.0)
[2020-07-14 16:30] LABS: Anion Gap 8 (5-15); BUN 12 mg/dL (7-18); BUN/Creat Ratio 16.9 RATIO (10-20); Calcium,Total 8.8 mg/dL (8.5-10.1); Chloride 97 mmol/L (98-107); Creatinine, Serum 0.71 mg/dL (0.55-1.02); EST Glomerular Filtration Rate 85 mL/min (>60); Est Glom Filt Rate - Afr Amer 103 mL/min (>60); Glucose 105 mg/dL (74-106); Potassium 3.6 mmol/L (3.5-5.1); Sodium Level 131 mmol/L (136-145)
== END ==
PROVIDERS: PCP Internal Medicine; Referring Provider Specialist; Visit Provider Specialist
DX: Z01.818 Encounter for other preprocedural examination (principal); M16.12 Unilateral primary osteoarthritis, left hip
CPT/HCPCS: 36415; 73700; 80048; 85025; 87081

== ENCOUNTER 2020-08-02 09:06 | Inpatient (IN) | payer MEDICARE, MEDICAID, SELFPAY ==
[2019-07-16 11:02] VITALS: BMI 34.8
[2020-03-31 09:30] VITALS: BMI 34.9
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
--- NOTE | 2020-07-26 13:54 | EKG12_ITS ---
Test Reason : PRE OP Blood Pressure : / mmHG Vent. Rate : 087 BPM Atrial Rate : 087 BPM P-R Int : 148 ms QRS Dur : 084 ms QT Int : 380 ms P-R-T Axes : 029 -48 022 degrees QTc Int : 457 ms Normal sinus rhythm Left anterior fascicular block Abnormal ECG Confirmed by FLAVIA SALAZAR, PRIYANK ([id number]), newspaper copy editor KATHRYN PIPER ([id number]) on 07/27/2020 8:31:18 AM Referred By: Coy Chan Confirmed By:CARLOS ALEJANDRO MD
[2020-08-02] VITALS (35 sets, daily range): BP systolic 69–149; BP diastolic 45–81; PULSE 55–83; RESP 12–18; TEMP 36.2–36.8; O2SAT 96–100; BMI 33.0
[2020-08-02] MEDS: Acetaminophen 500 MG Tablet 1000 MG PO ×2 (09:42→20:45)
[2020-08-02] MEDS: Gabapentin 600 MG Tablet PO (09:43)
[2020-08-02] MEDS: Celecoxib 200 MG Capsule 400 MG PO (09:43)
[2020-08-02 10:01] LABS: Bedside Glucose 98 mg/dL (70-110)
[2020-08-02] MEDS: Lactated Ringers 1,000 ML 100 ML IV (10:08)
[2020-08-02] MEDS: Cefazolin 2 GM in 0.9% Normal Saline 100 ML IV (10:22)
--- NOTE | 2020-08-02 10:30 | SYN_PTH ---
PATIENT: BRADLY REDDY LOC: MS3 U#:[id number] AGE/SX: 74/F [place] [facility] [place]: Dr. Ifeanyi Fernandez MD : 1945 BED: 1 DIS: 08/15/2020 SPEC #: [id number] RECD: 08/02/20 14:42 STATUS: JESE REJuan David #: [id number] REINALDO: 08/02/20 10:[address]: Coy Chan DEPT: SURGICAL PATHOLOGY RECD BY: Shoaib Duran ENTERED: 08/03/20 06:58 SP TYPE: SYNOVIUM OTHR DR: MD Dr. Steffen Lopez DO Tissues: A - Synovial tissue of joint, NOS B - Hip, NOS Procedures: Decalcification bone/plaque Surgery Specimen Level IV HEADER OPERATION: Robotic assisted total hip arthroplasty, posterior PRE-OP DIAGNOSIS: Left hip osteoarthritis TISSUE SUBMITTED: A - Left hip synovium, B - Left femoral hip MICROSCOPIC DIAGNOSIS A. Left hip synovium: Fragments of mild reactive synovial tissue. B. Left femoral hip: A piece of bone with degenerative osteoarthritic changes. ROBERT:alex 08/09/20 COMMENT Case has been reviewed in consultation with Dr. Dennis who concurs with the above diagnosis. IDC:[email or web address] MICROSCOPIC DESCRIPTION Slides are reviewed. GROSS DESCRIPTION A - Received in fixative is one container labeled with the patient's name and designated left hip synovium. The specimen consists of multiple irregular fragments of light to dark low soft tissue that in aggregate measure 4 x 4 x 1.5 cm. Farmworker Animal sections are submitted in one cassette. B - Received is one container labeled with the patient's name and designated femoral head left hip. The specimen consists of a discoid fragment of bone. The articular surface is irregular, hemorrhagic and granular. The nonarticular surface is grossly unremarkable. Farmworker Animal sections are submitted in one cassette after decalcification. / AM:alex 08/03/20 TC:5 CPT: 67767 x2, [id number]
[2020-08-02] MEDS: dexAMETHasone 10 MG/ML Vial IV (10:50)
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
--- NOTE | 2020-08-02 15:06 | RAD_ITS ---
STUDY: X-RAY - PELVIS AND LEFT HIP REASON FOR EXAM: Female, 74 years old. POST OP TECHNIQUE: 2 views of the pelvis and hip. COMPARISON: None. FINDINGS: There is severe muscular atrophy. Total hip arthroplasty in anatomic alignment. Subcutaneous pockets of air. RAD/Hip Min 2 Views (Portable) IMPRESSION: Postop with anatomic alignment of total left hip arthroplasty. Electronically Signed: Johanna Singleton MD at 2:47 EDT , Service support ,
[2020-08-02] MEDS: Lactated Ringers 1,000 ML 200 ML IV (15:30)
[2020-08-02 15:43] LABS: Absolute Lymphocyte Count 0.91 X10^3/uL (0.83-4.51); Absolute Neutrophil Count 12.7 X10^3/uL (2.0-7.7); Basophil# 0.01 X10^3/uL; Basophil% 0.1 % (0-1); Eosinophil# 0.01 X10^3/uL; Eosinophils% 0.1 % (0-5); Hematocrit 29.7 % (37-47); Hemoglobin 9.6 g/dL (12.0-15.0); Lymphocyte # 0.91 X10^3/ul (4.0); Lymphocyte % 6.5 % (19-41); Mean Corp Hgb Conc 32.3 g/dL (32-36); Mean Corpuscular Hgb 29.8 pg (27.0-32.0); Mean Corpuscular Volume 92.2 fL (81-99); Mean Platelet Vol. 8.7 fl (6.2-12.0); Monocyte# 0.34 X10^3/uL; Monocyte% 2.4 % (0-10); NRBC Flagged by Analyzer 0 % (0-5); Neutrophil # 12.72 X10^3/uL (2.7-7.7); Neutrophil % 90.4 % (47-70); Platelet Count 206 K/mm3 (150-450); RBC Distribution Width CV 12.7 % (11.6-14.6); RBC Distribution Width SD 42.9 fl (35.1-43.9); Red Blood Count 3.22 M/mm3 (4.2-5.4); White Blood Count 14.1 K/mm3 (4.4-11.0)
--- NOTE | 2020-08-02 17:39 | PCM.PN.HOSP ---
Reason for Visit: post op left total hip Subjective: This is a 74 year old female with pmhx of CAD with prior stent in fall 2019, HTN, HLD, HELENA, osteoarthritis, hypothyroidism, GERD, who underwent a left total hip repair with Dr. Chan today. She is doing well post op with no complaints. She does not have any hip pain yet. She is preparing to start working with [employer]. She has no SOB or cough. No fever/chills. No nausea. Vitals/I&O's: Vital Signs Temp Pulse Resp BP Pulse Ox 98.2 F 76 16 108/49 L 100 08/02/20 17:26 08/02/20 17:26 08/02/20 17:26 08/02/20 17:26 08/02/20 17:26 Oxygen Flow Rate (L/min) 6 Oxygen Delivery Method Room Air Weight: 192 lb 3.889 oz Body Mass Index (BMI) 33.0 Intake and Output for Last 24 Hours 07/31/20 08/01/20 08/02/20 23:59 23:59 23:59 Intake Total 2742.67 / 2742.67 Balance 2742.67 / 2742.67 General: Alert, Oriented x3, Cooperative HEENT: Atraumatic, PERRLA, EOMI, Normocephalic Neck: Supple, No JVD, Negative Carotid Bruits Lungs: Clear to auscultation, Normal air movement Cardiovascular: Regular rate, No murmurs Abdomen: Bowel Sounds Present, Soft, Non Tender Extremities: No edema, Capillary Refill Less than 3 Seconds Skin: No rashes, No breakdown Musculoskeletal: No Tenderness to Palpation of Joints or Extremities Neurological: Cranial nerves II-XII grossly intact Psych/Mental Status: Normal Affect, Appropriate, Alert and oriented to time, place, person, mood and affect Laboratory Results 08/02/20 09:17: POC Glucose 98 08/02/20 10:08: Magnesium Cancelled, TSH Cancelled 08/02/20 15:35: WBC 14.1 H, RBC 3.22 L, Hgb 9.6 L, Hct 29.7 L, MCV 92.2, MCH 29.8, MCHC 32.3, RDW Std Deviation 42.9, RDW Coeff of Papo 12.7, Plt Count 206, MPV 8.7, Immature Gran % (Auto) 0.500, Neut % (Auto) 90.4 H, Lymph % (Auto) 6.5 L, [place] % (Auto) 2.4, Eos % (Auto) 0.1, Baso % (Auto) 0.1, Absolute Neuts (auto) 12.7 H, Absolute Lymphs (auto) 0.91, Nucleated RBC % 0 Current Medications Acetaminophen (Tylenol) 1,000 mg PO Q8 [facility] Aspirin (Aspirin, Baby) 81 mg PO BIDCM [facility] Atorvastatin Calcium (Lipitor) 20 mg PO QHS [facility] Calcium/Vitamin D (Os-Santiago 500mg + D) 2 tablet PO DAILYCM [facility] Clopidogrel Bisulfate (Plavix) 75 mg PO DAILY [facility] Diphenhydramine HCl (Benadryl) 25 mg PO QDAY [facility] Duloxetine HCl (Cymbalta) 60 mg PO DAILY [facility] Enteral Nutritional Formula (Ensure Surgery) 237 ml PO TIDCM [facility] Last Admin: 08/02/20 17:33 Dose: Not Given Documented by: Famotidine (Pepcid) 20 mg PO DAILY [facility] Lactated Ringer's () 1,000 mls @ 125 mls/hr IV .Q8H [facility] Cefazolin Sodium () 1 gm in 50 mls @ 150 mls/hr IV Q8H [facility] Stop: 08/03/20 02:49 Lactated Ringer's () 1,000 mls @ 200 mls/hr IV .Q5H [facility] Stop: 08/02/20 20:29 Last Infusion: 08/02/20 17:32 Dose: 125 mls/hr Documented by: Sodium Chloride () 250 mls @ 15 mls/hr IV .[id number] PRN PRN Reason: Saline Flush Sodium Chloride () 250 mls @ 15 mls/hr IV .[id number] PRN PRN Reason: Additional IVPB Infusion Insulin Human Lispro (Humalog Kwikpen (Bkc)) 1 - 6 unit SC Q4H PRN PRN; Protocol PRN Reason: BG>/= 180, SEE PROTOCOL Levothyroxine Sodium (Synthroid) 75 mcg PO DAILY@0600 [facility] Loperamide HCl (Imodium) 2 mg PO Q2H PRN PRN PRN Reason: diarrhea Losartan Potassium (Cozaar) 50 mg PO DAILY [facility] Morphine Sulfate () 2 - 4 mg IV Q2H PRN PRN PRN Reason: Pain Score 4-10/10 Morphine Sulfate () 2 - 4 mg IV Q2H PRN PRN PRN Reason: Pain Score 4-10/10 Multivitamins (Multivitamin) 1 tablet PO DAILY@0800 [facility] Ondansetron HCl (Zofran) 4 mg IV Q8H PRN PRN PRN Reason: NAUSEA Oxycodone HCl (Oxyir) 5 - 10 mg PO Q4H PRN PRN PRN Reason: Pain Score 4-10/10 Pantoprazole Sodium (Protonix) 40 mg PO BID [facility] Prednisone () 5 mg PO DAILY PRN PRN Reason: flare Promethazine HCl (Phenergan) 12.5 mg IM Q6H PRN PRN; Protocol PRN Reason: NAUSEA/VOMITING Senna/Docusate Sodium (Senokot-S, Sally-Colace) 2 tablet PO BID [facility] Sodium Chloride () 10 - 40 ml IV UD PRN PRN Reason: SALINE FLUSH Zolpidem Tartrate (Ambien (Generic)) 5 mg PO QHS PRN PRN Reason: .INSOMNIA STROKE Vital Signs/Narrative: Vital Signs Temp Pulse Resp BP Pulse Ox 08/02/20 17:26 98.2 F 76 16 108/49 L 100 08/02/20 16:45 97.1 F L 73 16 99/60 100 08/02/20 16:30 70 18 108/58 L 100 08/02/20 16:25 68 16 109/57 L 100 08/02/20 16:20 67 16 90/54 L 100 08/02/20 16:15 67 16 103/54 L 100 08/02/20 16:10 67 16 99/51 L 100 08/02/20 16:05 66 16 102/55 L 100 08/02/20 16:00 66 16 97/59 L 100 08/02/20 15:55 67 18 88/59 L 100 08/02/20 15:50 67 18 96/57 L 100 08/02/20 15:45 66 16 92/55 L 100 08/02/20 15:40 66 18 98/51 L 100 08/02/20 15:35 65 16 89/54 L 100 08/02/20 15:30 63 18 92/54 L 100 08/02/20 15:25 63 16 89/55 L 100 08/02/20 15:20 62 16 84/51 L 100 08/02/20 15:15 63 16 84/54 L 100 08/02/20 15:10 62 16 69/48 L 100 08/02/20 15:05 62 16 82/48 L 100 08/02/20 15:00 63 12 75/46 L 98 08/02/20 14:56 97.3 F L 63 12 90/45 L 100 Medical Necessity - Tobacco Use Smoking Status: Former smoker Tobacco Use: Non-smoker Assessment/Plan All Active Problems (Last Reviewed 03/31/20 @ 09:37 by Sylvie Cole) Pre-op examination (Acute) Abnormal nuclear stress test (Acute) 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 CAD - had stent in Fall 2018. Pt uses asa/plavix/losartan/statin at home. Resume statin when ok per ortho. Last stress test 04/2020 negative for ischemia, preserved EF. Echo with EF 65% stage 1 diastolic dysfunction, RVSP 26, negative bubble study. 2. GERD - PPI 3. Hypothyroidism - synthroid 4. HTN - ok to resume home meds 5. Depression, anxiety - duloxetine, ambien 6. OA s/p left total hip POD#0 - care per Dr. Chan, doing well no issues, minimal pain. on prednisone for flare ups. DVT ppx: per ortho, asa bid Thank you for the opportunity to participate in the care of this patient. This patient was seen by Bc Bach PA-C under the supervision of Dr. Crowley
[2020-08-02] MEDS: Cefazolin 1 GM/50 ML BAG IV (18:39)
[2020-08-02] MEDS: Aspirin 81 MG TAB.CHEW PO (18:39)
[2020-08-02] MEDS: Lactated Ringers 1,000 ML 999 ML IV (20:00)
--- NOTE | 2020-08-02 20:07 | PCM.PN.BLA ---
Progress Note Rapid response was called at around 7:45 PM. Nursing staff reported that patient was transferred from the bed to the bedside commode and she passed out. Patient mentioned that she was dizzy. When I arrived to the floor, patient was awake, alert. She mentioned that she was dizzy and then passed out. Denied chest pain or shortness of breath. Her hip pain is manageable. Denied abdominal pain, nausea or vomiting. Initial blood pressure was 87/40, heart rate was 65, pulse ox was 89% on 5 L. Blood glucose was 189. Patient was on IV fluids. On examination: She is pale, alert, oriented. Chest: Clear to auscultation. Heart: S1-S2 normal, no murmur. Abdomen: Soft, nontender. EKG performed: Revealed normal sinus rhythm, normal QRS, prolonged QTC, no acute changes. Assessment and plan: Her symptoms are probably due to vasovagal syncope. Plan for IV fluid bolus, compliance monitor, recheck blood pressure later. STROKE Vital Signs/Narrative: Vital Signs Temp Pulse Resp BP Pulse Ox 08/02/20 19:05 98.1 F 83 18 137/69 H 100 08/02/20 17:26 98.2 F 76 16 108/49 L 100 08/02/20 16:45 97.1 F L 73 16 99/60 100 08/02/20 16:30 70 18 108/58 L 100 08/02/20 16:25 68 16 109/57 L 100 08/02/20 16:20 67 16 90/54 L 100 08/02/20 16:15 67 16 103/54 L 100 08/02/20 16:10 67 16 99/51 L 100
--- NOTE | 2020-08-02 20:08 | EKG12_ITS ---
Test Reason : RAPID RESPONSE Blood Pressure : / mmHG Vent. Rate : 067 BPM Atrial Rate : 067 BPM P-R Int : 164 ms QRS Dur : 084 ms QT Int : 476 ms P-R-T Axes : 016 -37 009 degrees QTc Int : 502 ms Normal sinus rhythm Left axis deviation Prolonged QT Abnormal ECG When compared with ECG of 26-JUL-2020 14:06, No significant change was found Confirmed by FLAVIA SALAZAR, PRIYANK ([id number]), purchase request editor JOSELYN TERAN ([id number]) on 08/09/2020 11:23:01 AM Referred By: Ayleen Tam Confirmed By:CARLOS ALEJANDRO MD
[2020-08-02 20:21] LABS: Bedside Glucose 198 mg/dL (70-110)
--- NOTE | 2020-08-02 21:15 | NURSING ---
Pt got up with aid to Bedside commode. MED SPEC called this nurse. Upon entering room MED SPEC informed this nurse pt leaned forward and MED SPEC caught pt before she fell off the commode. Pt able to open eyes to light touch/voice but only making one word responses. Called for more assistance to get pt back to bed. Charge nurse Carmen arrived to room and pt no longer responding to verbal/physical stimuli. THIRD HAND called and this nurse and 2 other staff lifted pt from [facility] onto bed. Vitals obtained and pt found to be hypotensive. blood sugar checked and 02 applied 5L via NC. Pt started responding to interventions and able to open eyes and respond to questions. Dr Jones in to assess pt. IV bolus administered and pt remained laying supine and responded to interventions.
[2020-08-02] MEDS: Senna/Docusate Sodium 1 Tablet 2 TABLET PO (21:22)
[2020-08-02] MEDS: Atorvastatin Calcium 20 MG Tablet PO (21:22)
[2020-08-02] MEDS: Pantoprazole Sodium 40 MG Tablet PO (21:26)
--- NOTE | 2020-08-02 23:33 | PCM.PN.BLA ---
Progress Note The patient's nurse reported that the patient complained of double vision. Patient seen and examined. She complained of diplopia on looking by both eyes. She denied facial numbness or tingling. She denied focal arm or leg weakness. She denied slurred speech. She stated that she has been seeing double vision upon looking to the TV. Patient denied any headache or change to his mind. I showed her face on my iPhone camera and she stated that her smile is normally asymmetrical and no change to her baseline. On examination: Vision is intact, extraocular muscles are intact, no diplopia on looking by each eye, no diplopia by looking by both eyes as well. She does have minimal right facial droop. Patient denied any headache or change. No arm or leg drift. Plan: At this time, I doubt acute stroke. Her minimal right facial droop seems to be chronic, she has chronic asymmetrical smile. Plan to monitor. If patient developed new symptoms such as blurry vision, slurred speech, focal arm or leg weakness, we will proceed with stroke alert. STROKE Vital Signs/Narrative: Vital Signs Temp Pulse Resp BP BP Pulse Ox 08/02/20 21:20 97.4 F L 78 18 117/62 100 08/02/20 20:40 97.2 F L 70 18 106/66 100 08/02/20 20:28 71 105/56 L 99 08/02/20 20:21 67 93/51 L 100 08/02/20 20:17 59 L 78/52 L 99 08/02/20 20:14 55 L 85/50 L 100 08/02/20 20:10 59 L 89/53 L 99 08/02/20 20:00 58 L 77/47 L 96 08/02/20 19:55 66 89/50 L 100 08/02/20 19:50 69 80/47 L 98
[2020-08-03] VITALS (20 sets, daily range): BP systolic 101–142; BP diastolic 40–84; PULSE 71–96; RESP 16–18; TEMP 36.3–37.1; O2SAT 95–100
[2020-08-03] MEDS: Zolpidem Tartrate 5 MG Tablet PO ×2 (00:41→23:29)
[2020-08-03] MEDS: Cefazolin 1 GM/50 ML BAG IV (02:47)
[2020-08-03] MEDS: Lactated Ringers 1,000 ML 125 ML IV (05:23)
[2020-08-03] MEDS: Acetaminophen 500 MG Tablet 1000 MG PO ×3 (05:35→21:35)
[2020-08-03] MEDS: Levothyroxine 75 MCG Tablet PO (05:36)
[2020-08-03 06:37] LABS: Hematocrit 22.3 % (37-47); Hemoglobin 7.3 g/dL (12.0-15.0); Mean Corp Hgb Conc 32.7 g/dL (32-36); Mean Corpuscular Hgb 29.7 pg (27.0-32.0); Mean Corpuscular Volume 90.7 fL (81-99); Mean Platelet Vol. 9.3 fl (6.2-12.0); Platelet Count 204 K/mm3 (150-450); RBC Distribution Width CV 12.8 % (11.6-14.6); RBC Distribution Width SD 41.7 fl (35.1-43.9); Red Blood Count 2.46 M/mm3 (4.2-5.4)
[2020-08-03 07:07] LABS: Anion Gap 6 (5-15); BUN 22 mg/dL (7-18); Calcium,Total 7.6 mg/dL (8.5-10.1); Chloride 97 mmol/L (98-107); EST Glomerular Filtration Rate 104 mL/min (>60); Est Glom Filt Rate - Afr Amer 126 mL/min (>60); Estimated Creatinine Clearance 41.33 ml/min; Glucose 91 mg/dL (74-106); Potassium 4.1 mmol/L (3.5-5.1); Sodium Level 128 mmol/L (136-145)
[2020-08-03] MEDS: Multivitamins,Therapeutic Tablet 1 TABLET PO (07:43)
[2020-08-03] MEDS: oxyCODONE 5 MG Tablet PO ×3 (07:43→20:02)
[2020-08-03] MEDS: Calcium Carb/Vitamin D 1 TABLET Tablet 2 TABLET PO (07:43)
[2020-08-03] MEDS: Famotidine 20 MG Tablet PO (07:44)
[2020-08-03] MEDS: Clopidogrel Bisulfate 75 MG Tablet PO (07:44)
[2020-08-03] MEDS: DULoxetine Hcl 60 MG Capsule PO (07:44)
[2020-08-03] MEDS: Aspirin 81 MG TAB.CHEW PO ×2 (07:44→16:49)
[2020-08-03] MEDS: Senna/Docusate Sodium 1 Tablet 2 TABLET PO ×2 (07:45→21:35)
[2020-08-03] MEDS: Pantoprazole Sodium 40 MG Tablet PO ×2 (07:49→21:36)
[2020-08-03] MEDS: Ensure Surgery 237 ML LIQUID PO ×3 (07:49→16:49)
--- NOTE | 2020-08-03 08:14 | PN.ORTHO_ITS ---
Subjective: The patient was sitting in bed upon examination. Patient denies any chest pain, shortness of breath, dizziness, lightheadedness, nausea or vomiting, or calf pain. Case was discussed with nursing staff. Patient had a rapid response called on her for vasovagal episode while in the bathroom. Patient overall today is doing much better. She is currently denying any chest pain, shortness of breath, numbness and tingling, calf pain. She is currently on telemetry. Medicine is involved with management. Patient did have a drop in hemoglobin and is currently 7.3. Patient states increased left hip pain and is currently taking Tylenol. She has not been able to use the oxycodone due to her low blood pressure overnight. Objective: Vital signs stable and afebrile. Patient is able to plantarflex and dorsiflex actively. Sensation is intact to light touch to saphenous, sural, superficial and deep peroneal, and tibial distribution. Dressing is clean dry and intact. Negative Homans bilaterally, negative signs and symptoms of DVT. - Physical Exam Vitals/I&O's: Vital Signs Temp Pulse Resp BP Pulse Ox 98.8 F 91 16 101/61 95 08/03/20 05:31 08/03/20 06:00 08/03/20 05:31 08/03/20 05:31 08/03/20 05:31 Oxygen Flow Rate (L/min) 2 Oxygen Delivery Method Room Air Weight: 87.2 kg Body Mass Index (BMI) 33.0 Intake and Output for Last 24 Hours 08/01/20 08/02/20 08/03/20 23:59 23:59 23:59 Intake Total 3786.00 / 4186.00 1500 / 1500 Balance 3786.00 / 4186.00 1500 / 1500 General: Alert, Oriented x3, Cooperative, No apparent distress Laboratory Results 08/02/20 09:17: POC Glucose 98 08/02/20 10:08: Magnesium Cancelled, TSH Cancelled 08/02/20 15:35: WBC 14.1 H, RBC 3.22 L, Hgb 9.6 L, Hct 29.7 L, MCV 92.2, MCH 29.8, MCHC 32.3, RDW Std Deviation 42.9, RDW Coeff of Papo 12.7, Plt Count 206, MPV 8.7, Immature Gran % (Auto) 0.500, Neut % (Auto) 90.4 H, Lymph % (Auto) 6.5 L, [place] % (Auto) 2.4, Eos % (Auto) 0.1, Baso % (Auto) 0.1, Absolute Neuts (auto) 12.7 H, Absolute Lymphs (auto) 0.91, Nucleated RBC % 0 08/02/20 19:51: POC Glucose 198 H 08/03/20 05:36: WBC 12.0 H, RBC 2.46 L, Hgb 7.3 L, Hct 22.3 L, MCV 90.7, MCH 29.7, MCHC 32.7, RDW Std Deviation 41.7, RDW Coeff of Papo 12.8, Plt Count 204, MPV 9.3 08/03/20 05:36: Sodium 128 L, Potassium 4.1, Chloride 97 L, Carbon Dioxide 25.0, Anion Gap 6, BUN 22 H, Creatinine 0.60, Estim Creat Clear Calc 41.33, Est GFR (MDRD) Af Amer 126, Est GFR (MDRD) Non-Af 104, BUN/Creatinine Ratio 37.0 H, Glucose 91, Calcium 7.6 L Current Medications Acetaminophen (Tylenol) 1,000 mg PO Q8 [facility] Last Admin: 08/03/20 05:35 Dose: 1,000 mg Documented by: [facility], [facility]) [facility] Last Admin: 08/03/20 07:44 Dose: 81 mg Documented by: Atorvastatin Calcium (Lipitor) 20 mg PO QHS [facility] Last Admin: 08/02/20 21:22 Dose: 20 mg Documented by: Calcium/Vitamin D (Os-Santiago 500mg + D) [facility] Last Admin: 08/03/20 07:43 Dose: 2 tablet Documented by: Clopidogrel Bisulfate (Plavix) 75 mg PO DAILY [facility] Last Admin: 08/03/20 07:44 Dose: 75 mg Documented by: Diphenhydramine HCl (Benadryl) 25 mg PO DAILY PRN PRN PRN Reason: ALLERGIES Duloxetine HCl (Cymbalta) 60 mg PO DAILY [facility] Last Admin: 08/03/20 07:44 Dose: 60 mg Documented by: Enteral Nutritional Formula (Ensure Surgery) 237 ml PO TIDCM [facility] Last Admin: 08/03/20 07:49 Dose: 237 ml Documented by: Famotidine (Pepcid) 20 mg PO DAILY [facility] Last Admin: 08/03/20 07:44 Dose: 20 mg Documented by: Lactated Ringer's () 1,000 mls @ 125 mls/hr IV .Q8H [facility] Last Admin: 08/03/20 05:24 Dose: Not Given Documented by: Sodium Chloride () 250 mls @ 15 mls/hr IV .[id number] PRN PRN Reason: Saline Flush Sodium Chloride () 250 mls @ 15 mls/hr IV .[id number] PRN PRN Reason: Additional IVPB Infusion Insulin Human Lispro (Humalog Kwikpen (Bkc)) 1 - 6 unit SC Q4H PRN PRN; Protocol PRN Reason: BG>/= 180, SEE PROTOCOL Levothyroxine Sodium (Synthroid) 75 mcg PO DAILY@0600 [facility] Last Admin: 08/03/20 05:36 Dose: 75 mcg Documented by: Loperamide HCl (Imodium) 2 mg PO Q2H PRN PRN PRN Reason: diarrhea Losartan Potassium (Cozaar) 50 mg PO QHS [facility] Last Admin: 08/02/20 21:22 Dose: Not Given Documented by: Morphine Sulfate () 2 - 4 mg IV Q2H PRN PRN PRN Reason: Pain Score 4-10/10 Morphine Sulfate () 2 - 4 mg IV Q2H PRN PRN PRN Reason: Pain Score 4-10/10 Multivitamins (Multivitamin) 1 tablet PO DAILY@0800 [facility] Last Admin: 08/03/20 07:43 Dose: 1 tablet Documented by: Ondansetron HCl (Zofran) 4 mg IV Q8H PRN PRN PRN Reason: NAUSEA Oxycodone HCl (Oxyir) 5 - 10 mg PO Q4H PRN PRN PRN Reason: Pain Score 4-10/10 Last Admin: 08/03/20 07:43 Dose: 5 mg Documented by: Pantoprazole Sodium (Protonix) 40 mg PO BID [facility] Last Admin: 08/03/20 07:49 Dose: 40 mg Documented by: Senna/Docusate Sodium (Senokot-S, Sally-Colace) 2 tablet PO BID [facility] Last Admin: 08/03/20 07:45 Dose: 2 tablet Documented by: Sodium Chloride () 10 - 40 ml IV UD PRN PRN Reason: SALINE FLUSH Zolpidem Tartrate (Ambien (Generic)) 5 mg PO QHS PRN PRN Reason: .INSOMNIA Last Admin: 08/03/20 00:41 Dose: 5 mg Documented by: Medical Necessity - Tobacco Use Smoking Status: Former smoker Tobacco Use: Non-smoker Assessment/Plan All Active Problems (Last Reviewed 03/31/20 @ 09:37 by Sylvie Cole) Pre-op examination (Acute) Abnormal nuclear stress test (Acute) 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 S/P left posterior hip total hip arthroplasty POD #1 2. Continue Pain Medications: Tylenol primarily. Will try to limit narcotics at this time until her blood pressure is more stabilized. 3. DVT Prophylaxis: Take 81 mg aspirin twice daily for 4 weeks postoperatively for DVT prophylaxis 4. PT/OT: Toe-touch weightbearing left lower extremity with walker. Continue with posterior hip dislocation precautions 5. Postoperative anemia secondary to acute blood loss: H & H: 7.3/22.3, asymptomatic. 6. Encouraged Incentive Spirometry 7. Continue postoperative medical management per medicine: Discussed with hospitalist and patient is currently ordered 2 units packed red blood cells. 8. Disposition: Patient currently had a vasovagal episode and is currently on telemetry. Medicine is assisting with management of patient. Patient currently is going to require 2 units of packed red blood cells due to drop in hemoglobin. Patient is also with toe-touch weightbearing with posterior hip dislocation precautions for the left hip. Due to significant limitations and precautions patient will require residential facility postoperatively. Social work/case management will be involved with appropriate placement. Patient's primary preference is the transitional care [facility] at [facility].
--- NOTE | 2020-08-03 09:00 | CASEMGMT ---
Social Work Note AMAURY reviewed notes, pt would like [facility]CU. AMAURY placed a call to [facility] in TCU. [facility] states she has beds available and will submit for pre-cert. Plan: TCU pending pre-cert Deja Fine MSW, FISHERY BIOLOGIST
--- NOTE | 2020-08-03 10:05 | CASEMGMT ---
Addendum entered by Deja Fine 08/03/20 10:22: SW did provide pt with list of SNF that accept pt's insurance. Original Note: Social Work Assessment Referral Date: 08/03/2020 Date of Assessment: 08/03/2020 Reason for consult: SNF placement Informant: THIERNO SALAZAR Personal Status: SW met with pt to complete initial assessment. SW introduced self and role at [facility]. Pt is alert and orientated x3. Pt states that she lives alone in an apartment ([address]) with one cat. Pt states she used to have two cats but one of them recently . Pt states that she has 14 steps to enter her apartment and then the apartment is all one level. DME include walker, roller walker, toilet riser, and transfer shower bench. PCP is Dr. Tam and Pharmacy is [facility] in [place]. Substance Abuse Hx: Pt denied. Pt states she used to smoke cigarettes but quit in 1982. Mental Health Hx: Pt states she has history of depression ever since her s. Pt states that her mom left when pt was about [age] year old and pt also questioned why her mother would leave and what kind of mother just leaves her child. Pt states that her grandparents raised her and her grandmother acted like her mother. Pt states that when her grandmother in 1973 that was really tough on her. SW offered support to pt. Pt states that she used to go to counseling and it was beneficial but pt denied wanting any counseling resources at this time. Pt states that she currently takes Cymbalta and feels that her depression is well managed. Pt states that in 1989 she tried to end her life by cutting her wrist. Pt states I didn't see any reason to live. Pt states that she spent 2.5 weeks at [place] after her attempt. Pt states that she every now and then will have thoughts about suicide but denied having any plans or intent. Pt states I think it is normal to every now and then think about it. Pt denied any recent suicidal thoughts/plans/ideations and denied any current suicidal thoughts/plans/ideations. SW spoke with pt regarding coping skills for depression. Pt states that she used to be good at cross stitching but she now has arthritis and unable to cross stitch. Pt states that she likes to read a lot, watch movies, and talk on the phone. Pt states that she has friends to talk to, two Aunts and lots of cousins. Pt also states baptist is a good coping skill for her. AMAURY educated pt on Pattern Data Operator at [facility] and pt is agreeable to speak with Pattern Data Operator. SW placed a call to [facility], left message regarding referral. SW then spoke with pt regarding discharge plans. Pt states is agreeable to TCU. SW explained that TCU does have a bed available and pre-cert will be submitted. Pt asked what if my insurance doesn't approve it? SW explained options of paying privately, [facility], outpatient therapy. Pt states I only get 900$ a month and most of that goes to rent, I won't be able to afford private pay. AMAURY explained that this worker will wait to see what insurance states and then update pt. Pt states understanding. Plan: TCU pending pre-cert Deja Fine HEAT TRANSFER TECHNICIAN, FISHING BOAT MATE
--- NOTE | 2020-08-03 14:55 | CHAPLAIN ---
Type of Pastoral Visit _x__ Initial Visit ___ Follow-up Visit ___ On-call Visit ___ General Patient Visit ___ Spiritual Assessment ___ Family Conference ___ Bereavement ___ Rapid Response ___ Code Blue ___ Other (describe below) Pastoral Care Referral From _x__ Patient ___ Family ___ Nurse ___ Physician _x__ Associate Theatre Professor ___ Low Emission Automobile Designer ___ Other (describe below) Sacrament/Intervention _x__ Active listening ___ Anointing ___ Christianity _x__ Bereavement ___ Communion ___ Ayala exploration ___ _x__ Life review _x__ Prayer ___ Reconciliation ___ Sacrament of Sick _x__ Supportive presence ___ Wedding ___ Other (describe below) Pastoral Comments referral from SW about patient; pt is talkative and states that she does not have people to talk to, especially since CoVid19; pt talks at length about the of her cat recently; pt acknowledges grief over loss of her pet that was a sales technician for her; pt has never and has limited family at this time of life; pt does speak of her ayala in God as a source of encouragement; pt does welcome a prayer and invites this geriatric care manager for future visits
[2020-08-03] MEDS: Morphine 2 MG/ML Syringe IV (16:49)
[2020-08-03] MEDS: 0.9% Saline Lock 10 ML Syringe IV ×2 (16:52→20:03)
[2020-08-03] MEDS: Atorvastatin Calcium 20 MG Tablet PO (21:35)
[2020-08-03] MEDS: Losartan Potassium 50 MG Tablet PO (21:36)
[2020-08-04] VITALS (7 sets, daily range): BP systolic 107–122; BP diastolic 23–68; PULSE 72–91; RESP 18; TEMP 36.6–36.8; O2SAT 93–98
[2020-08-04] MEDS: Levothyroxine 75 MCG Tablet PO (05:07)
[2020-08-04] MEDS: Acetaminophen 500 MG Tablet 1000 MG PO ×3 (05:07→20:50)
[2020-08-04] MEDS: oxyCODONE 5 MG Tablet PO ×3 (05:07→20:48)
[2020-08-04 06:00] LABS: Hematocrit 27.8 % (37-47); Hemoglobin 9.1 g/dL (12.0-15.0); Mean Corp Hgb Conc 32.7 g/dL (32-36); Mean Corpuscular Hgb 29.9 pg (27.0-32.0); Mean Corpuscular Volume 91.4 fL (81-99); Mean Platelet Vol. 8.9 fl (6.2-12.0); Platelet Count 154 K/mm3 (150-450); RBC Distribution Width CV 13.5 % (11.6-14.6); RBC Distribution Width SD 44.8 fl (35.1-43.9); Red Blood Count 3.04 M/mm3 (4.2-5.4); White Blood Count 5.6 K/mm3 (4.4-11.0)
--- NOTE | 2020-08-04 07:05 | PCM.PN.ORT ---
Subjective: The patient was sitting in bed upon examination. Patient denies any chest pain, shortness of breath, dizziness, lightheadedness, nausea or vomiting, or calf pain. Pain is controlled on medications. No adverse overnight events. Patient continues to complain of pain in the left hip. She is using Tylenol and oxycodone for pain control. Patient did participate in physical therapy yesterday but states it was difficult. She has difficult time sleeping. Patient did require 2 units of packed red blood cells yesterday. Her hemoglobin has improved today. She is currently asymptomatic clinically. We are waiting on pre-CERT for the transitional care unit at [facility]. Objective: Vital signs stable and afebrile. Patient is able to plantarflex and dorsiflex actively. Sensation is intact to light touch to saphenous, sural, superficial and deep peroneal, and tibial distribution. Patient denies any numbness and tingling into the left lower extremity Dressing is clean dry and intact. Negative Homans bilaterally, negative signs and symptoms of DVT. - Physical Exam Vitals/I&O's: Vital Signs Temp Pulse Resp BP Pulse Ox 98.2 F 81 18 107/23 L 98 08/04/20 05:16 08/04/20 05:16 08/04/20 05:16 08/04/20 05:16 08/04/20 05:16 Oxygen Flow Rate (L/min) 2 Oxygen Delivery Method Room Air Weight: 87.2 kg Body Mass Index (BMI) 33.0 Intake and Output for Last 24 Hours 08/02/20 08/03/20 08/04/20 23:59 23:59 23:59 Intake Total 3786.00 / 4186.00 4270.83 / 4470.83 300 / 300 Output Total 200 / 650 450 / 450 Balance 3786.00 / 4186.00 4070.83 / 3820.83 -150 / -150 General: Alert, Oriented x3, Cooperative, No apparent distress Microbiology Past 72 Hours 08/02/20 11:29 Tissue - Hip Gram Stain - Final 08/02/20 11:29 Tissue - Hip Wound Culture - Preliminary No growth-Final to follow Laboratory Results 08/03/20 05:36: Sodium 128 L, Potassium 4.1, Chloride 97 L, Carbon Dioxide 25.0, Anion Gap 6, BUN 22 H, Creatinine 0.60, Estim Creat Clear Calc 41.33, Est GFR (MDRD) Af Amer 126, Est GFR (MDRD) Non-Af 104, BUN/Creatinine Ratio 37.0 H, Glucose 91, Calcium 7.6 L 08/03/20 08:10: Blood Type O POSITIVE, Antibody Screen NEGATIVE, Crossmatch See Detail 08/04/20 05:25: WBC 5.6, RBC 3.04 L, Hgb 9.1 L, Hct 27.8 L, MCV 91.4, MCH 29.9, MCHC 32.7, RDW Std Deviation 44.8 H, RDW Coeff of Papo 13.5, Plt Count 154, MPV 8.9 Current Medications Acetaminophen (Tylenol) 1,000 mg PO Q8 [facility] Last Admin: 08/04/20 05:07 Dose: 1,000 mg Documented by: [facility] ([facility], [facility]) [facility] Last Admin: 08/03/20 16:49 Dose: 81 mg Documented by: Atorvastatin Calcium (Lipitor) 20 mg PO QHS [facility] Last Admin: 08/03/20 21:35 Dose: 20 mg Documented by: Calcium/Vitamin D (Os-Santiago 500mg + D) [facility] Last Admin: 08/03/20 07:43 Dose: 2 tablet Documented by: Clopidogrel Bisulfate (Plavix) 75 mg PO DAILY [facility] Last Admin: 08/03/20 07:44 Dose: 75 mg Documented by: Diphenhydramine HCl (Benadryl) 25 mg PO DAILY PRN PRN PRN Reason: ALLERGIES Duloxetine HCl (Cymbalta) 60 mg PO DAILY [facility] Last Admin: 08/03/20 07:44 Dose: 60 mg Documented by: Enteral Nutritional Formula (Ensure Surgery) 237 ml PO TIDCM [facility] Last Admin: 08/03/20 16:49 Dose: 237 ml Documented by: Famotidine (Pepcid) 20 mg PO DAILY [facility] Last Admin: 08/03/20 07:44 Dose: 20 mg Documented by: Ferrous Gluconate (Ferrous Gluconate) 324 mg PO DAILY@0800 [facility] Sodium Chloride () 250 mls @ 15 mls/hr IV .[id number] PRN PRN Reason: Saline Flush Sodium Chloride () 250 mls @ 15 mls/hr IV .[id number] PRN PRN Reason: Additional IVPB Infusion Insulin Human Lispro (Humalog Kwikpen (Bkc)) 1 - 6 unit SC Q4H PRN PRN; Protocol PRN Reason: BG>/= 180, SEE PROTOCOL Levothyroxine Sodium (Synthroid) 75 mcg PO DAILY@0600 [facility] Last Admin: 08/04/20 05:07 Dose: 75 mcg Documented by: Loperamide HCl (Imodium) 2 mg PO Q2H PRN PRN PRN Reason: diarrhea Losartan Potassium (Cozaar) 50 mg PO QHS [facility] Last Admin: 08/03/20 21:36 Dose: 50 mg Documented by: Morphine Sulfate () 2 - 4 mg IV Q2H PRN PRN PRN Reason: Pain Score 4-10/10 Last Admin: 08/03/20 16:49 Dose: 2 mg Documented by: Morphine Sulfate () 2 - 4 mg IV Q2H PRN PRN PRN Reason: Pain Score 4-10/10 Multivitamins (Multivitamin) 1 tablet PO DAILY@0800 [facility] Last Admin: 08/03/20 07:43 Dose: 1 tablet Documented by: Ondansetron HCl (Zofran) 4 mg IV Q8H PRN PRN PRN Reason: NAUSEA Oxycodone HCl (Oxyir) 5 - 10 mg PO Q4H PRN PRN PRN Reason: Pain Score 4-10/10 Last Admin: 08/04/20 05:07 Dose: 5 mg Documented by: Pantoprazole Sodium (Protonix) 40 mg PO BID [facility] Last Admin: 08/03/20 21:36 Dose: 40 mg Documented by: Senna/Docusate Sodium (Senokot-S, Sally-Colace) 2 tablet PO BID [facility] Last Admin: 08/03/20 21:35 Dose: 2 tablet Documented by: Sodium Chloride () 10 - 40 ml IV UD PRN PRN Reason: SALINE FLUSH Last Admin: 08/03/20 20:03 Dose: 10 ml Documented by: Zolpidem Tartrate (Ambien (Generic)) 5 mg PO QHS PRN PRN Reason: .INSOMNIA Last Admin: 08/03/20 23:29 Dose: 5 mg Documented by: Medical Necessity - Tobacco Use Smoking Status: Former smoker Tobacco Use: Non-smoker Assessment/Plan All Active Problems (Last Reviewed 03/31/20 @ 09:37 by Sylvie Cole) Pre-op examination (Acute) Abnormal nuclear stress test (Acute) 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 S/P left posterior hip total hip arthroplasty POD #2 2. Continue Pain Medications: Tylenol and oxycodone 3. DVT Prophylaxis: Take 81 mg aspirin twice daily for 4 weeks postoperatively for DVT prophylaxis 4. PT/OT: Toe-touch weightbearing left lower extremity with walker. Continue with posterior hip dislocation precautions 5. Postoperative anemia secondary to acute blood loss from surgery: Currently H & H: 9.1/27.8, asymptomatic. Patient did require 2 units of packed red blood cells on August 03, 2020 6. Encouraged Incentive Spirometry 7. Continue postoperative medical management per medicine: 8. Disposition: Patient will require correction facility upon discharge. Patient has significant limitations for the left lower extremity and has had difficulty managing on her own. She is continuing to complain of pain but denies numbness and tingling down the left leg. Continue with above pain medications. We are waiting on pre-CERT for patient to go to the transitional care unit at [facility]. We will continue to monitor her hemoglobin.
--- NOTE | 2020-08-04 07:37 | PN_ITS ---
Subjective: Patient seen and examined. She has no complaints this morning. She was transfused with 2 units of packed red blood cells yesterday. Hemoglobin this morning is 9.1. Vitals/I&O's: Vital Signs Temp Pulse Resp BP Pulse Ox 98.2 F 81 18 107/23 L 98 08/04/20 05:16 08/04/20 05:16 08/04/20 05:16 08/04/20 05:16 08/04/20 05:16 Oxygen Flow Rate (L/min) 2 Oxygen Delivery Method Room Air Weight: 192 lb 3.889 oz Body Mass Index (BMI) 33.0 Intake and Output for Last 24 Hours 08/02/20 08/03/20 08/04/20 23:59 23:59 23:59 Intake Total 3786.00 / 4186.00 4270.83 / 4470.83 300 / 300 Output Total 200 / 650 450 / 450 Balance 3786.00 / 4186.00 4070.83 / 3820.83 -150 / -150 General: Alert, Oriented x3, Cooperative HEENT: Atraumatic, PERRLA, EOMI, Normocephalic Neck: Supple, No JVD, Negative Carotid Bruits Lungs: Clear to auscultation, Normal air movement Cardiovascular: Regular rate, No murmurs Abdomen: Bowel Sounds Present, Soft, Non Tender Extremities: No edema, Capillary Refill Less than 3 Seconds Skin: No rashes, No breakdown Musculoskeletal: No Tenderness to Palpation of Joints or Extremities, dressing over right hip Neurological: Cranial nerves II-XII grossly intact Psych/Mental Status: Normal Affect, Appropriate, Alert and oriented to time, place, person, mood and affect Microbiology Past 72 Hours 08/02/20 11:29 Tissue - Hip Gram Stain - Final 08/02/20 11:29 Tissue - Hip Wound Culture - Preliminary No growth-Final to follow Laboratory Results 08/03/20 08:10: Blood Type O POSITIVE, Antibody Screen NEGATIVE, Crossmatch See Detail 08/04/20 05:25: WBC 5.6, RBC 3.04 L, Hgb 9.1 L, Hct 27.8 L, MCV 91.4, MCH 29.9, MCHC 32.7, RDW Std Deviation 44.8 H, RDW Coeff of Papo 13.5, Plt Count 154, MPV 8.9 08/04/20 05:25: Sodium Pending, Potassium Pending, Chloride Pending, Carbon Dioxide Pending, Anion Gap Pending, BUN Pending, Creatinine Pending, Est GFR (MDRD) Af Amer Pending, Est GFR (MDRD) Non-Af Pending, BUN/Creatinine Ratio Pending, Glucose Pending, Calcium Pending Diagnostic Data Hip X-Ray 08/02/20 15:06 IMPRESSION: Postop with anatomic alignment of total left hip arthroplasty. Electronically Signed: Johanna Singleton MD at 2:47 EDT , Service support , Current Medications Acetaminophen (Tylenol) 1,000 mg PO Q8 [facility] Last Admin: 08/04/20 05:07 Dose: 1,000 mg Documented by: Aspirin (Aspirin, Baby) 81 mg PO BIDCM [facility] Last Admin: 08/03/20 16:49 Dose: 81 mg Documented by: Atorvastatin Calcium (Lipitor) 20 mg PO QHS [facility] Last Admin: 08/03/20 21:35 Dose: 20 mg Documented by: Calcium/Vitamin D (Os-Santiago 500mg + D) [facility] Last Admin: 08/03/20 07:43 Dose: 2 tablet Documented by: Clopidogrel Bisulfate (Plavix) 75 mg PO DAILY [facility] Last Admin: 08/03/20 07:44 Dose: 75 mg Documented by: Diphenhydramine HCl (Benadryl) 25 mg PO DAILY PRN PRN PRN Reason: ALLERGIES Duloxetine HCl (Cymbalta) 60 mg PO DAILY [facility] Last Admin: 08/03/20 07:44 Dose: 60 mg Documented by: Enteral Nutritional Formula (Ensure Surgery) 237 ml PO TIDCM [facility] Last Admin: 08/03/20 16:49 Dose: 237 ml Documented by: Famotidine (Pepcid) 20 mg PO DAILY [facility] Last Admin: 08/03/20 07:44 Dose: 20 mg Documented by: Ferrous Gluconate (Ferrous Gluconate) 324 mg PO DAILY@0800 [facility] Sodium Chloride () 250 mls @ 15 mls/hr IV .[id number] PRN PRN Reason: Saline Flush Sodium Chloride () 250 mls @ 15 mls/hr IV .[id number] PRN PRN Reason: Additional IVPB Infusion Insulin Human Lispro (Humalog Kwtaylorpen (Bkc)) 1 - 6 unit SC Q4H PRN PRN; Protocol PRN Reason: BG>/= 180, SEE PROTOCOL Levothyroxine Sodium (Synthroid) 75 mcg PO DAILY@0600 [facility] Last Admin: 08/04/20 05:07 Dose: 75 mcg Documented by: Loperamide HCl (Imodium) 2 mg PO Q2H PRN PRN PRN Reason: diarrhea Losartan Potassium (Cozaar) 50 mg PO QHS [facility] Last Admin: 08/03/20 21:36 Dose: 50 mg Documented by: Morphine Sulfate () 2 - 4 mg IV Q2H PRN PRN PRN Reason: Pain Score 4-10/10 Last Admin: 08/03/20 16:49 Dose: 2 mg Documented by: Morphine Sulfate () 2 - 4 mg IV Q2H PRN PRN PRN Reason: Pain Score 4-10/10 Multivitamins (Multivitamin) 1 tablet PO DAILY@0800 [facility] Last Admin: 08/03/20 07:43 Dose: 1 tablet Documented by: Ondansetron HCl (Zofran) 4 mg IV Q8H PRN PRN PRN Reason: NAUSEA Oxycodone HCl (Oxyir) 5 - 10 mg PO Q4H PRN PRN PRN Reason: Pain Score 4-10/10 Last Admin: 08/04/20 05:07 Dose: 5 mg Documented by: Pantoprazole Sodium (Protonix) 40 mg PO BID [facility] Last Admin: 08/03/20 21:36 Dose: 40 mg Documented by: Senna/Docusate Sodium (Senokot-S, Sally-Colace) 2 tablet PO BID [facility] Last Admin: 08/03/20 21:35 Dose: 2 tablet Documented by: Sodium Chloride () 10 - 40 ml IV UD PRN PRN Reason: SALINE FLUSH Last Admin: 08/03/20 20:03 Dose: 10 ml Documented by: Zolpidem Tartrate (Ambien (Generic)) 5 mg PO QHS PRN PRN Reason: .INSOMNIA Last Admin: 08/03/20 23:29 Dose: 5 mg Documented by: STROKE Vital Signs/Narrative: Vital Signs Temp Pulse Resp BP Pulse Ox 08/04/20 05:16 98.2 F 81 18 107/23 L 98 08/04/20 03:59 72 Medical Necessity - Tobacco Use Smoking Status: Former smoker Tobacco Use: Non-smoker Assessment/Plan All Active Problems (Last Reviewed 03/31/20 @ 09:37 by Sylvie Cole) Pre-op examination (Acute) Abnormal nuclear stress test (Acute) 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) Status post right hip replacement (Resolved) # Osteoarthritis s/p left hip replacement * today is POD 2 * pain well controlled * on IV morphine, oxycodone and tylenol * PT/OT on board * fall precautions * * # Anemia due to acute blood loss from surgery * Hb dropped to 7.3, and she was transfused with 2 units of PRBCs * Hb today is 9.1 * # GERD: on PPI # Hypothyroidism: on synthroid #Hypertension: Depression and anxiety: on duloxetine #CAD s/p stents: on aspirin, plavix and statin. DVT prophylaxis: on aspirin 81mg bid as per orthopedics Inpatient E&M: 45982 Subs Hosp L2
--- NOTE | 2020-08-04 07:46 | PN_ITS ---
Subjective: Late entry for 08/03/2020 Patient seen and examined. She had no complaints. Patient's night was complicated by an episode of hypotension and some dizziness but this had resolved. Hemoglobin this morning is down 7.3. Per discussion with orthopedic surgery, high patient was quite a long surgery and she sustained some significant blood loss. Review of symptoms otherwise negative. Vitals/I&O's: Vital Signs Temp Pulse Resp BP Pulse Ox 98.2 F 81 18 107/23 L 98 08/04/20 05:16 08/04/20 05:16 08/04/20 05:16 08/04/20 05:16 08/04/20 05:16 Oxygen Flow Rate (L/min) 2 Oxygen Delivery Method Room Air Weight: 192 lb 3.889 oz Body Mass Index (BMI) 33.0 Intake and Output for Last 24 Hours 08/02/20 08/03/20 08/04/20 23:59 23:59 23:59 Intake Total 3786.00 / 4186.00 4270.83 / 4470.83 300 / 300 Output Total 200 / 650 450 / 450 Balance 3786.00 / 4186.00 4070.83 / 3820.83 -150 / -150 General: Alert, Oriented x3, Cooperative HEENT: Atraumatic, PERRLA, EOMI, Normocephalic Neck: Supple, No JVD, Negative Carotid Bruits Lungs: Clear to auscultation, Normal air movement Cardiovascular: Regular rate, No murmurs Abdomen: Bowel Sounds Present, Soft, Non Tender Extremities: No edema, Capillary Refill Less than 3 Seconds Skin: No rashes, No breakdown Musculoskeletal: No Tenderness to Palpation of Joints or Extremities, dressing over right hip Neurological: Cranial nerves II-XII grossly intact Psych/Mental Status: Normal Affect, Appropriate, Alert and oriented to time, place, person, mood and affect Microbiology Past 72 Hours 08/02/20 11:29 Tissue - Hip Gram Stain - Final 08/02/20 11:29 Tissue - Hip Wound Culture - Preliminary No growth-Final to follow Laboratory Results 08/03/20 08:10: Blood Type O POSITIVE, Antibody Screen NEGATIVE, Crossmatch See Detail 08/04/20 05:25: WBC 5.6, RBC 3.04 L, Hgb 9.1 L, Hct 27.8 L, MCV 91.4, MCH 29.9, MCHC 32.7, RDW Std Deviation 44.8 H, RDW Coeff of Papo 13.5, Plt Count 154, MPV 8.9 08/04/20 05:25: Sodium Pending, Potassium Pending, Chloride Pending, Carbon Dioxide Pending, Anion Gap Pending, BUN Pending, Creatinine Pending, Est GFR (MDRD) Af Amer Pending, Est GFR (MDRD) Non-Af Pending, BUN/Creatinine Ratio Pending, Glucose Pending, Calcium Pending Current Medications Acetaminophen (Tylenol) 1,000 mg PO Q8 [facility] Last Admin: 08/04/20 05:07 Dose: 1,000 mg Documented by: [facility] Last Admin: 08/03/20 16:49 Dose: 81 mg Documented by: Atorvastatin Calcium (Lipitor) 20 mg PO QHS [facility] Last Admin: 08/03/20 21:35 Dose: 20 mg Documented by: Calcium/Vitamin D (Os-Santiago 500mg + D) [facility] Last Admin: 08/03/20 07:43 Dose: 2 tablet Documented by: Clopidogrel Bisulfate (Plavix) 75 mg PO DAILY [facility] Last Admin: 08/03/20 07:44 Dose: 75 mg Documented by: Diphenhydramine HCl (Benadryl) 25 mg PO DAILY PRN PRN PRN Reason: ALLERGIES Duloxetine HCl (Cymbalta) 60 mg PO DAILY [facility] Last Admin: 08/03/20 07:44 Dose: 60 mg Documented by: Enteral Nutritional Formula (Ensure Surgery) 237 ml PO TIDCM [facility] Last Admin: 08/03/20 16:49 Dose: 237 ml Documented by: Famotidine (Pepcid) 20 mg PO DAILY [facility] Last Admin: 08/03/20 07:44 Dose: 20 mg Documented by: Ferrous Gluconate (Ferrous Gluconate) 324 mg PO DAILY@0800 [facility] Sodium Chloride () 250 mls @ 15 mls/hr IV .[id number] PRN PRN Reason: Saline Flush Sodium Chloride () 250 mls @ 15 mls/hr IV .[id number] PRN PRN Reason: Additional IVPB Infusion Insulin Human Lispro (Humalog Alvaro (Bkc)) 1 - 6 unit SC Q4H PRN PRN; Protocol PRN Reason: BG>/= 180, SEE PROTOCOL Levothyroxine Sodium (Synthroid) 75 mcg PO DAILY@0600 [facility] Last Admin: 08/04/20 05:07 Dose: 75 mcg Documented by: Loperamide HCl (Imodium) 2 mg PO Q2H PRN PRN PRN Reason: diarrhea Losartan Potassium (Cozaar) 50 mg PO QHS [facility] Last Admin: 08/03/20 21:36 Dose: 50 mg Documented by: Morphine Sulfate () 2 - 4 mg IV Q2H PRN PRN PRN Reason: Pain Score 4-10/10 Last Admin: 08/03/20 16:49 Dose: 2 mg Documented by: Morphine Sulfate () 2 - 4 mg IV Q2H PRN PRN PRN Reason: Pain Score 4-10/10 Multivitamins (Multivitamin) 1 tablet PO DAILY@0800 [facility] Last Admin: 08/03/20 07:43 Dose: 1 tablet Documented by: Ondansetron HCl (Zofran) 4 mg IV Q8H PRN PRN PRN Reason: NAUSEA Oxycodone HCl (Oxyir) 5 - 10 mg PO Q4H PRN PRN PRN Reason: Pain Score 4-10/10 Last Admin: 08/04/20 05:07 Dose: 5 mg Documented by: Pantoprazole Sodium (Protonix) 40 mg PO BID [facility] Last Admin: 08/03/20 21:36 Dose: 40 mg Documented by: Senna/Docusate Sodium (Senokot-S, Sally-Colace) 2 tablet PO BID [facility] Last Admin: 08/03/20 21:35 Dose: 2 tablet Documented by: Sodium Chloride () 10 - 40 ml IV UD PRN PRN Reason: SALINE FLUSH Last Admin: 08/03/20 20:03 Dose: 10 ml Documented by: Zolpidem Tartrate (Ambien (Generic)) 5 mg PO QHS PRN PRN Reason: .INSOMNIA Last Admin: 08/03/20 23:29 Dose: 5 mg Documented by: STROKE Vital Signs/Narrative: Vital Signs Temp Pulse Resp BP Pulse Ox 08/04/20 05:16 98.2 F 81 18 107/23 L 98 08/04/20 03:59 72 Medical Necessity - Tobacco Use Smoking Status: Former smoker Tobacco Use: Non-smoker Assessment/Plan All Active Problems (Last Reviewed 03/31/20 @ 09:37 by Sylvie Cole) Pre-op examination (Acute) Abnormal nuclear stress test (Acute) 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) Status post right hip replacement (Resolved) # Osteoarthritis s/p left hip replacement * today is POD 2 * pain well controlled * on IV morphine, oxycodone and tylenol * PT/OT on board * fall precautions * * # Anemia due to acute blood loss from surgery * Hb has dropped to 7.3, * will transfuse with 2 units of PRBCs * * # GERD: on PPI # Hypothyroidism: on synthroid #Hypertension: on losartan. Depression and anxiety: on duloxetine #CAD s/p stents: on aspirin, plavix and statin. DVT prophylaxis: on aspirin 81mg bid as per orthopedics Inpatient E&M: 57088 Subs Hosp L2
[2020-08-04 07:51] LABS: Anion Gap 3 (5-15); BUN 19 mg/dL (7-18); BUN/Creat Ratio 32.5 RATIO (10-20); Calcium,Total 7.9 mg/dL (8.5-10.1); Chloride 103 mmol/L (98-107); Creatinine, Serum 0.58 mg/dL (0.55-1.02); EST Glomerular Filtration Rate 106 mL/min (>60); Est Glom Filt Rate - Afr Amer 128 mL/min (>60); Estimated Creatinine Clearance 41.33 ml/min; Glucose 88 mg/dL (74-106); Potassium 4.3 mmol/L (3.5-5.1); Sodium Level 134 mmol/L (136-145)
[2020-08-04] MEDS: Aspirin 81 MG TAB.CHEW PO ×2 (08:36→16:30)
[2020-08-04] MEDS: Multivitamins,Therapeutic Tablet 1 TABLET PO (08:36)
[2020-08-04] MEDS: Calcium Carb/Vitamin D 1 TABLET Tablet 2 TABLET PO (08:37)
[2020-08-04] MEDS: Ferrous Gluconate 324 MG Tablet PO (08:43)
[2020-08-04] MEDS: Ensure Surgery 237 ML LIQUID PO ×3 (08:43→16:34)
[2020-08-04] MEDS: Famotidine 20 MG Tablet PO (08:45)
[2020-08-04] MEDS: DULoxetine Hcl 60 MG Capsule PO (08:45)
[2020-08-04] MEDS: Pantoprazole Sodium 40 MG Tablet PO ×2 (08:45→20:49)
[2020-08-04] MEDS: Clopidogrel Bisulfate 75 MG Tablet PO (08:45)
[2020-08-04] MEDS: Senna/Docusate Sodium 1 Tablet 2 TABLET PO ×2 (08:45→20:49)
--- NOTE | 2020-08-04 16:34 | CASEMGMT ---
Social Work Note AMAURY received call from [facility] in TCU stating pre-cert is still pending. AMAURY in to speak with pt and updated her that pre-cert is still pending, pt may be on MS3 through weekend if pre-cert is not obtained. Pt states understanding. Green sheet on chart in the event pre-cert is obtained. Plan: TCU pending pre-cert Deja Fine [employer], [employer]
[2020-08-04] MEDS: Atorvastatin Calcium 20 MG Tablet PO (20:49)
[2020-08-04] MEDS: Losartan Potassium 50 MG Tablet PO (20:49)
[2020-08-04] MEDS: Zolpidem Tartrate 5 MG Tablet PO (23:27)
[2020-08-05] VITALS (9 sets, daily range): BP systolic 113–132; BP diastolic 50–66; PULSE 80–96; RESP 18; TEMP 36.4–37.2; O2SAT 93–98
[2020-08-05] MEDS: oxyCODONE 5 MG Tablet PO ×4 (00:47→20:34)
[2020-08-05] MEDS: Levothyroxine 75 MCG Tablet PO (05:35)
[2020-08-05] MEDS: Acetaminophen 500 MG Tablet 1000 MG PO ×3 (05:35→20:38)
[2020-08-05] MEDS: DiphenhydrAMINE 25 MG Capsule PO (06:36)
[2020-08-05 07:32] LABS: Hematocrit 27.8 % (37-47); Hemoglobin 8.8 g/dL (12.0-15.0); Mean Corp Hgb Conc 31.7 g/dL (32-36); Mean Corpuscular Hgb 29.8 pg (27.0-32.0); Mean Corpuscular Volume 94.2 fL (81-99); Mean Platelet Vol. 9.5 fl (6.2-12.0); Platelet Count 191 K/mm3 (150-450); RBC Distribution Width CV 13.5 % (11.6-14.6); RBC Distribution Width SD 46.2 fl (35.1-43.9); Red Blood Count 2.95 M/mm3 (4.2-5.4); White Blood Count 8.2 K/mm3 (4.4-11.0)
--- NOTE | 2020-08-05 07:42 | PCM.PN.HOSP ---
Subjective: Patient seen and examined. She has no complaints this morning. She has remained hemodynamically stable. Review of systems otherwise negative. Hb today is 8.8. Vitals/I&O's: Vital Signs Temp Pulse Resp BP Pulse Ox 97.5 F L 89 18 123/57 H 93 08/05/20 03:40 08/05/20 03:40 08/05/20 03:40 08/05/20 03:40 08/05/20 07:17 Oxygen Flow Rate (L/min) 2 Oxygen Delivery Method Room Air Weight: 192 lb 3.889 oz Body Mass Index (BMI) 33.0 Intake and Output for Last 24 Hours 08/03/20 08/04/20 08/05/20 23:59 23:59 23:59 Intake Total 4270.83 / 4470.83 800 / 800 800 / 800 Output Total 200 / 650 1125 / 1125 400 / 400 Balance 4070.83 / 3820.83 -325 / -325 400 / 400 General: Alert, Oriented x3, Cooperative HEENT: Atraumatic, PERRLA, EOMI, Normocephalic Neck: Supple, No JVD, Negative Carotid Bruits Lungs: Clear to auscultation, Normal air movement Cardiovascular: Regular rate, No murmurs Abdomen: Bowel Sounds Present, Soft, Non Tender Extremities: No edema, Capillary Refill Less than 3 Seconds Skin: No rashes, No breakdown Musculoskeletal: No Tenderness to Palpation of Joints or Extremities, dressing over right hip Neurological: Cranial nerves II-XII grossly intact Psych/Mental Status: Normal Affect, Appropriate, Alert and oriented to time, place, person, mood and affect Microbiology Past 72 Hours 08/02/20 11:29 Tissue - Hip Gram Stain - Final 08/02/20 11:29 Tissue - Hip Wound Culture - Preliminary No growth-Final to follow 08/02/20 11:29 Tissue - Hip Anaerobic Culture - Preliminary No growth in 48 hours. Laboratory Results 08/04/20 05:25: Sodium 134 L, Potassium 4.3, Chloride 103, Carbon Dioxide 28.0, Anion Gap 3 L, BUN 19 H, Creatinine 0.58, Estim Creat Clear Calc 41.33, Est GFR (MDRD) Af Amer 128, Est GFR (MDRD) Non-Af 106, BUN/Creatinine Ratio 32.5 H, Glucose 88, Calcium 7.9 L 08/05/20 06:45: WBC 8.2, RBC 2.95 L, Hgb 8.8 L, Hct 27.8 L, MCV 94.2, MCH 29.8, MCHC 31.7 L, RDW Std Deviation 46.2 H, RDW Coeff of Papo 13.5, Plt Count 191, MPV 9.5 Current Medications Acetaminophen (Tylenol) 1,000 mg PO Q8 [facility] Last Admin: 08/05/20 05:35 Dose: 1,000 mg Documented by: [facility], Baby) [facility] Last Admin: 08/04/20 16:30 Dose: 81 mg Documented by: Atorvastatin Calcium (Lipitor) 20 mg PO QHS [facility] Last Admin: 08/04/20 20:49 Dose: 20 mg Documented by: Calcium/Vitamin D (Os-Santiago 500mg + D) [facility] Last Admin: 08/04/20 08:37 Dose: 2 tablet Documented by: Clopidogrel Bisulfate (Plavix) 75 mg PO DAILY [facility] Last Admin: 08/04/20 08:45 Dose: 75 mg Documented by: Diphenhydramine HCl (Benadryl) 25 mg PO DAILY PRN PRN PRN Reason: ALLERGIES Last Admin: 08/05/20 06:36 Dose: 25 mg Documented by: Duloxetine HCl (Cymbalta) 60 mg PO DAILY [facility] Last Admin: 08/04/20 08:45 Dose: 60 mg Documented by: Enteral Nutritional Formula (Ensure Surgery) 237 ml PO TIDCM [facility] Last Admin: 08/04/20 16:34 Dose: 237 ml Documented by: Famotidine (Pepcid) 20 mg PO DAILY [facility] Last Admin: 08/04/20 08:45 Dose: 20 mg Documented by: Ferrous Gluconate (Ferrous Gluconate) 324 mg PO DAILY@0800 [facility] Last Admin: 08/04/20 08:43 Dose: 324 mg Documented by: Sodium Chloride () 250 mls @ 15 mls/hr IV .[id number] PRN PRN Reason: Saline Flush Sodium Chloride () 250 mls @ 15 mls/hr IV .[id number] PRN PRN Reason: Additional IVPB Infusion Insulin Human Lispro (Humalog [place] (Bkc)) 1 - 6 unit SC Q4H PRN PRN; Protocol PRN Reason: BG>/= 180, SEE PROTOCOL Levothyroxine Sodium (Synthroid) 75 mcg PO DAILY@0600 [facility] Last Admin: 08/05/20 05:35 Dose: 75 mcg Documented by: Loperamide HCl (Imodium) 2 mg PO Q2H PRN PRN PRN Reason: diarrhea Losartan Potassium (Cozaar) 50 mg PO QHS [facility] Last Admin: 08/04/20 20:49 Dose: 50 mg Documented by: Morphine Sulfate () 2 - 4 mg IV Q2H PRN PRN PRN Reason: Pain Score 4-10/10 Last Admin: 08/03/20 16:49 Dose: 2 mg Documented by: Morphine Sulfate () 2 - 4 mg IV Q2H PRN PRN PRN Reason: Pain Score 4-10/10 Multivitamins (Multivitamin) 1 tablet PO DAILY@0800 [facility] Last Admin: 08/04/20 08:36 Dose: 1 tablet Documented by: Ondansetron HCl (Zofran) 4 mg IV Q8H PRN PRN PRN Reason: NAUSEA Oxycodone HCl (Oxyir) 5 - 10 mg PO Q4H PRN PRN PRN Reason: Pain Score 4-10/10 Last Admin: 08/05/20 05:36 Dose: 10 mg Documented by: Pantoprazole Sodium (Protonix) 40 mg PO BID [facility] Last Admin: 08/04/20 20:49 Dose: 40 mg Documented by: Senna/Docusate Sodium (Senokot-S, Sally-Colace) 2 tablet PO BID [facility] Last Admin: 08/04/20 20:49 Dose: 2 tablet Documented by: Sodium Chloride () 10 - 40 ml IV UD PRN PRN Reason: SALINE FLUSH Last Admin: 08/03/20 20:03 Dose: 10 ml Documented by: Zolpidem Tartrate (Ambien (Generic)) 5 mg PO QHS PRN PRN Reason: .INSOMNIA Last Admin: 08/04/20 23:27 Dose: 5 mg Documented by: STROKE Vital Signs/Narrative: Vital Signs Pulse Ox 08/05/20 07:17 93 Medical Necessity - Tobacco Use Smoking Status: Former smoker Tobacco Use: Non-smoker Assessment/Plan All Active Problems (Last Reviewed 03/31/20 @ 09:37 by Sylvie Cole) Pre-op examination (Acute) Abnormal nuclear stress test (Acute) 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) Status post right hip replacement (Resolved) # Osteoarthritis s/p left hip replacement today is POD 3 pain well controlled on IV morphine, oxycodone and tylenol PT/OT on board fall precautions # Anemia due to acute blood loss from surgery Hb dropped to 7.3, s/p transfusion of 2 units of PRBCS hb today is 8.8 # GERD: on PPI # Hypothyroidism: on synthroid #Hypertension: on losartan. Depression and anxiety: on duloxetine #CAD s/p stents: on aspirin, plavix and statin. DVT prophylaxis: on aspirin 81mg bid as per orthopedics Disposition: awaiting DC to TCU pending precert. Inpatient E&M: 37271 Subs Hosp L2
[2020-08-05] MEDS: Ensure Surgery 237 ML LIQUID PO ×3 (08:47→16:48)
[2020-08-05] MEDS: Ferrous Gluconate 324 MG Tablet PO (08:47)
[2020-08-05] MEDS: Aspirin 81 MG TAB.CHEW PO ×2 (08:47→16:48)
[2020-08-05] MEDS: Multivitamins,Therapeutic Tablet 1 TABLET PO (08:48)
[2020-08-05] MEDS: Calcium Carb/Vitamin D 1 TABLET Tablet 2 TABLET PO (08:48)
--- NOTE | 2020-08-05 09:44 | PCM.PN.ORT ---
Subjective: The patient was sitting in bed upon examination. Patient denies any chest pain, shortness of breath, dizziness, lightheadedness, nausea or vomiting, or calf pain. Pain is controlled on medications. No adverse overnight events. Patient states she continues to have pain in the left hip. Patient states she was not ready for this pain following the surgery. Patient states therapy was a little better yesterday. We are still waiting on pre-CERT from insurance for patient to go to the transitional care unit. Patient did have some drainage from the pin sites. Objective: Vital signs stable and afebrile. Patient is able to plantarflex and dorsiflex actively. Sensation is intact to light touch to saphenous, sural, superficial and deep peroneal, and tibial distribution. Main Mepilex dressing is with minimal drainage and remainder of dressing is clean dry and intact. Patient's pin site dressing had some drainage which did get onto her gown. Will place a Mepilex dressing over this area when we are able to get her up. Negative Homans bilaterally, negative signs and symptoms of DVT. - Physical Exam Vitals/I&O's: Vital Signs Temp Pulse Resp BP Pulse Ox 98.9 F 80 18 113/50 L 94 08/05/20 09:04 08/05/20 09:04 08/05/20 09:04 08/05/20 09:04 08/05/20 09:04 Oxygen Flow Rate (L/min) 2 Oxygen Delivery Method Room Air Weight: 87.2 kg Body Mass Index (BMI) 33.0 Intake and Output for Last 24 Hours 08/03/20 08/04/20 08/05/20 23:59 23:59 23:59 Intake Total 4270.83 / 4470.83 800 / 800 800 / 800 Output Total 200 / 650 1125 / 1125 400 / 400 Balance 4070.83 / 3820.83 -325 / -325 400 / 400 Microbiology Past 72 Hours 08/02/20 11:29 Tissue - Hip Gram Stain - Final 08/02/20 11:29 Tissue - Hip Wound Culture - Final No growth aerobically. 08/02/20 11:29 Tissue - Hip Anaerobic Culture - Preliminary No growth in 48 hours. Laboratory Results 08/05/20 06:45: WBC 8.2, RBC 2.95 L, Hgb 8.8 L, Hct 27.8 L, MCV 94.2, MCH 29.8, MCHC 31.7 L, RDW Std Deviation 46.2 H, RDW Coeff of Papo 13.5, Plt Count 191, MPV 9.5 Current Medications Acetaminophen (Tylenol) 1,000 mg PO Q8 [facility] Last Admin: 08/05/20 05:35 Dose: 1,000 mg Documented by: Aspirin (Aspirin, Baby) 81 mg PO BIDCM [facility] Last Admin: 08/05/20 08:47 Dose: 81 mg Documented by: Atorvastatin Calcium (Lipitor) 20 mg PO QHS [facility] Last Admin: 08/04/20 20:49 Dose: 20 mg Documented by: Calcium/Vitamin D (Os-Santiago 500mg + D) [facility] Admin: 08/05/20 08:48 Dose: 2 tablet Documented by: Clopidogrel Bisulfate (Plavix) 75 mg PO DAILY [facility] Last Admin: 08/04/20 08:45 Dose: 75 mg Documented by: Diphenhydramine HCl (Benadryl) 25 mg PO DAILY PRN PRN PRN Reason: ALLERGIES Last Admin: 08/05/20 06:36 Dose: 25 mg Documented by: Duloxetine HCl (Cymbalta) 60 mg PO DAILY [facility] Last Admin: 08/04/20 08:45 Dose: 60 mg Documented by: Enteral Nutritional Formula (Ensure Surgery) 237 ml PO TIDCM [facility] Last Admin: 08/05/20 08:47 Dose: 237 ml Documented by: Famotidine (Pepcid) 20 mg PO DAILY [facility] Last Admin: 08/04/20 08:45 Dose: 20 mg Documented by: Ferrous Gluconate (Ferrous Gluconate) 324 mg PO DAILY@0800 [facility] Last Admin: 08/05/20 08:47 Dose: 324 mg Documented by: Sodium Chloride () 250 mls @ 15 mls/hr IV .[id number] PRN PRN Reason: Saline Flush Sodium Chloride () 250 mls @ 15 mls/hr IV .[id number] PRN PRN Reason: Additional IVPB Infusion Insulin Human Lispro (Humalog Kwikpen (Bkc)) 1 - 6 unit SC Q4H PRN PRN; Protocol PRN Reason: BG>/= 180, SEE PROTOCOL Levothyroxine Sodium (Synthroid) 75 mcg PO DAILY@0600 [facility] Last Admin: 08/05/20 05:35 Dose: 75 mcg Documented by: Loperamide HCl (Imodium) 2 mg PO Q2H PRN PRN PRN Reason: diarrhea Losartan Potassium (Cozaar) 50 mg PO QHS [facility] Last Admin: 08/04/20 20:49 Dose: 50 mg Documented by: Morphine Sulfate () 2 - 4 mg IV Q2H PRN PRN PRN Reason: Pain Score 4-10/10 Last Admin: 08/03/20 16:49 Dose: 2 mg Documented by: Morphine Sulfate () 2 - 4 mg IV Q2H PRN PRN PRN Reason: Pain Score 4-10/10 Multivitamins (Multivitamin) 1 tablet PO DAILY@0800 [facility] Last Admin: 08/05/20 08:48 Dose: 1 tablet Documented by: Ondansetron HCl (Zofran) 4 mg IV Q8H PRN PRN PRN Reason: NAUSEA Oxycodone HCl (Oxyir) 5 - 10 mg PO Q4H PRN PRN PRN Reason: Pain Score 4-10/10 Last Admin: 08/05/20 05:36 Dose: 10 mg Documented by: Pantoprazole Sodium (Protonix) 40 mg PO BID [facility] Last Admin: 08/04/20 20:49 Dose: 40 mg Documented by: Senna/Docusate Sodium (Senokot-S, Sally-Colace) 2 tablet PO BID [facility] Last Admin: 08/04/20 20:49 Dose: 2 tablet Documented by: Sodium Chloride () 10 - 40 ml IV UD PRN PRN Reason: SALINE FLUSH Last Admin: 08/03/20 20:03 Dose: 10 ml Documented by: Zolpidem Tartrate (Ambien (Generic)) 5 mg PO QHS PRN PRN Reason: .INSOMNIA Last Admin: 08/04/20 23:27 Dose: 5 mg Documented by: Medical Necessity - Tobacco Use Smoking Status: Former smoker Tobacco Use: Non-smoker Assessment/Plan All Active Problems (Last Reviewed 03/31/20 @ 09:37 by Sylvie Cole) Pre-op examination (Acute) Abnormal nuclear stress test (Acute) 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 S/P left posterior hip total hip arthroplasty POD #3 2. Continue Pain Medications: Tylenol and oxycodone 3. DVT Prophylaxis: Take 81 mg aspirin twice daily for 4 weeks postoperatively for DVT prophylaxis 4. PT/OT: Toe-touch weightbearing left lower extremity with walker. Continue with posterior hip dislocation precautions 5. Postoperative anemia secondary to acute blood loss from surgery: Currently H & H: 8.8/27.8, asymptomatic. Patient did require 2 units of packed red blood cells on August 03, 2020 6. Encouraged Incentive Spirometry 7. Continue postoperative medical management per medicine 8. Disposition: Patient is currently waiting on pre-CERT for transition care unit. There is a possibility of this occurring today. I will have medications on chart just in case pre-CERT has been obtained today. If pre-CERT is not obtained patient will be here until at least Friday. We will continue with physical therapy. New dressing will be placed when patient is able to get up and easier to place. We will continue with current pain medications. I do not want to put patient on any further pain medications that could affect her blood pressure. She will continue with the Tylenol and oxycodone. I have reviewed the [place] Automated Rx Reporting System (OARRS) report for this patient for refill pattern and other prescriber involvement as part of the appropriate surveillance for the provision of acute and chronic controlled medications. The report was requested and reviewed on the date of this entry and was considered in the prescribing process.
[2020-08-05] MEDS: Famotidine 20 MG Tablet PO (10:04)
[2020-08-05] MEDS: Senna/Docusate Sodium 1 Tablet 2 TABLET PO (10:04)
[2020-08-05] MEDS: Clopidogrel Bisulfate 75 MG Tablet PO (10:05)
[2020-08-05] MEDS: Pantoprazole Sodium 40 MG Tablet PO ×2 (10:05→20:38)
[2020-08-05] MEDS: DULoxetine Hcl 60 MG Capsule PO (10:05)
[2020-08-05] MEDS: Zolpidem Tartrate 5 MG Tablet PO (20:37)
[2020-08-05] MEDS: Losartan Potassium 50 MG Tablet PO (20:38)
[2020-08-05] MEDS: Atorvastatin Calcium 20 MG Tablet PO (20:38)
--- NOTE | 2020-08-05 20:45 | NURSING ---
pt refused to shift weight to relieve pressure off of her operative hip, attempted to find alternative positioning with pillows, blankets, repositioning medication, but pt refuses. encouraged pt to use her polar care as it was off to help with pain and swelling, pt did allow staff to place on her operative hip. pt refuses to get up to bsc wants purewick which clean one was placed. pt tearful about her recovery, support and encouragement given.
[2020-08-06] VITALS (11 sets, daily range): BP systolic 92–134; BP diastolic 55–70; PULSE 77–88; RESP 16–18; TEMP 36.3–37.2; O2SAT 95–100
[2020-08-06] MEDS: oxyCODONE 5 MG Tablet PO ×3 (02:18→20:21)
[2020-08-06] MEDS: 0.9% Saline Lock 10 ML Syringe IV (02:19)
[2020-08-06] MEDS: Levothyroxine 75 MCG Tablet PO (06:04)
[2020-08-06] MEDS: Acetaminophen 500 MG Tablet 1000 MG PO ×2 (06:04→20:22)
--- NOTE | 2020-08-06 07:28 | PCM.PN.HOSP ---
Subjective: Patient seen and examined. She has no complaints. Pain is well controlled when she is lying still, but worsens with movement. No active events overnight. Review of symptoms otherwise negative. She has remained hemodynamically stable. Per discussion with orthopedic surgery, she had increased drainage from the surgical site. Will therefore get xrays to assess surgical site. Vitals/I&O's: Vital Signs Temp Pulse Resp BP Pulse Ox 97.5 F L 88 16 115/55 L 95 08/06/20 02:26 08/06/20 02:26 08/06/20 02:26 08/06/20 02:26 08/06/20 07:16 Oxygen Flow Rate (L/min) 2 Oxygen Delivery Method Room Air Weight: 192 lb 3.889 oz Body Mass Index (BMI) 33.0 Intake and Output for Last 24 Hours 08/04/20 08/05/20 08/06/20 23:59 23:59 23:59 Intake Total 800 / 800 2300 / 2300 Output Total 1125 / 1125 1600 / 1600 300 / 300 Balance -325 / -325 700 / 700 -300 / -300 General: Alert, Oriented x3, Cooperative HEENT: Atraumatic, PERRLA, EOMI, Normocephalic Neck: Supple, No JVD, Negative Carotid Bruits Lungs: Clear to auscultation, Normal air movement Cardiovascular: Regular rate, No murmurs Abdomen: Bowel Sounds Present, Soft, Non Tender Extremities: No edema, Capillary Refill Less than 3 Seconds Skin: No rashes, No breakdown Musculoskeletal: No Tenderness to Palpation of Joints or Extremities, dressing over right hip Neurological: Cranial nerves II-XII grossly intact Psych/Mental Status: Normal Affect, Appropriate, Alert and oriented to time, place, person, mood and affect Microbiology Past 72 Hours 08/02/20 11:29 Tissue - Hip Gram Stain - Final 08/02/20 11:29 Tissue - Hip Wound Culture - Final No growth aerobically. 08/02/20 11:29 Tissue - Hip Anaerobic Culture - Preliminary No growth in 48 hours. Laboratory Results 08/05/20 06:45: WBC 8.2, RBC 2.95 L, Hgb 8.8 L, Hct 27.8 L, MCV 94.2, MCH 29.8, MCHC 31.7 L, RDW Std Deviation 46.2 H, RDW Coeff of Papo 13.5, Plt Count 191, MPV 9.5 Current Medications Acetaminophen (Tylenol) 1,000 mg PO Q8 [facility] Last Admin: 08/06/20 06:04 Dose: 1,000 mg Documented by: [facility], [facility]) [facility] Last Admin: 08/05/20 16:48 Dose: 81 mg Documented by: Atorvastatin Calcium (Lipitor) 20 mg PO QHS [facility] Last Admin: 08/05/20 20:38 Dose: 20 mg Documented by: Calcium/Vitamin D (Os-Santiago 500mg + D) [facility] Last Admin: 08/05/20 08:48 Dose: 2 tablet Documented by: Clopidogrel Bisulfate (Plavix) 75 mg PO DAILY [facility] Last Admin: 08/05/20 10:05 Dose: 75 mg Documented by: Diphenhydramine HCl (Benadryl) 25 mg PO DAILY PRN PRN PRN Reason: ALLERGIES Last Admin: 08/05/20 06:36 Dose: 25 mg Documented by: Duloxetine HCl (Cymbalta) 60 mg PO DAILY [facility] Last Admin: 08/05/20 10:05 Dose: 60 mg Documented by: Enteral Nutritional Formula (Ensure Surgery) 237 ml PO TIDCM [facility] Last Admin: 08/05/20 16:48 Dose: 237 ml Documented by: Famotidine (Pepcid) 20 mg PO DAILY [facility] Last Admin: 08/05/20 10:04 Dose: 20 mg Documented by: Ferrous Gluconate (Ferrous Gluconate) 324 mg PO DAILY@0800 [facility] Last Admin: 08/05/20 08:47 Dose: 324 mg Documented by: Sodium Chloride () 250 mls @ 15 mls/hr IV .[id number] PRN PRN Reason: Saline Flush Sodium Chloride () 250 mls @ 15 mls/hr IV .[id number] PRN PRN Reason: Additional IVPB Infusion Levothyroxine Sodium (Synthroid) 75 mcg PO DAILY@0600 [facility] Last Admin: 08/06/20 06:04 Dose: 75 mcg Documented by: Loperamide HCl (Imodium) 2 mg PO Q2H PRN PRN PRN Reason: diarrhea Losartan Potassium (Cozaar) 50 mg PO QHS [facility] Last Admin: 08/05/20 20:38 Dose: 50 mg Documented by: Morphine Sulfate () 2 - 4 mg IV Q2H PRN PRN PRN Reason: Pain Score 4-1010 Last Admin: 08/03/20 16:49 Dose: 2 mg Documented by: Morphine Sulfate () 2 - 4 mg IV Q2H PRN PRN PRN Reason: Pain Score 4-10/10 Multivitamins (Multivitamin) 1 tablet PO DAILY@0800 [facility] Last Admin: 08/05/20 08:48 Dose: 1 tablet Documented by: Ondansetron HCl (Zofran) 4 mg IV Q8H PRN PRN PRN Reason: NAUSEA Oxycodone HCl (Oxyir) 5 - 10 mg PO Q4H PRN PRN PRN Reason: Pain Score 4-1010 Last Admin: 08/06/20 06:04 Dose: 10 mg Documented by: Pantoprazole Sodium (Protonix) 40 mg PO BID [facility] Last Admin: 08/05/20 20:38 Dose: 40 mg Documented by: Senna/Docusate Sodium (Senokot-S, Sally-Colace) 2 tablet PO BID [facility] Last Admin: 08/05/20 20:39 Dose: Not Given Documented by: Sodium Chloride () 10 - 40 ml IV UD PRN PRN Reason: SALINE FLUSH Last Admin: 08/06/20 02:19 Dose: 10 ml Documented by: Zolpidem Tartrate (Ambien (Generic)) 5 mg PO QHS PRN PRN Reason: .INSOMNIA Last Admin: 08/05/20 20:37 Dose: 5 mg Documented by: STROKE Vital Signs/Narrative: Vital Signs Pulse Ox 08/06/20 07:16 95 Medical Necessity - Tobacco Use Smoking Status: Former smoker Tobacco Use: Non-smoker Assessment/Plan All Active Problems (Last Reviewed 03/31/20 @ 09:37 by Sylvie Cole) Pre-op examination (Acute) Abnormal nuclear stress test (Acute) 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) Status post right hip replacement (Resolved) # Osteoarthritis s/p left hip replacement today is POD 4 pain well controlled on IV morphine, oxycodone and tylenol having increased drainage from surgical site; xrays of the left hip done showed dislocation of the prosthetic hip joint orthopedic surgery to attempt closed reduction of left hip today PT/OT on board fall precautions # Anemia due to acute blood loss from surgery Hb dropped to 7.3, s/p transfusion of 2 units of PRBCS Hb is now stable. # GERD: on PPI # Hypothyroidism: on synthroid #Hypertension: on losartan. Depression and anxiety: on duloxetine #CAD s/p stents: on aspirin, plavix and statin. DVT prophylaxis: on aspirin 81mg bid as per orthopedics Disposition: awaiting DC to TCU pending precert. Inpatient E&M: [id number] Subs Hosp L2
--- NOTE | 2020-08-06 07:43 | PCM.PN.ORT ---
Subjective: The patient was sitting in bed upon examination. Patient denies any chest pain, shortness of breath, dizziness, lightheadedness, nausea or vomiting, or calf pain. Patient has continued to have drainage from the pin site. The main dressing still appears intact with minimal drainage. The drainage began yesterday in which we started placing new dressings. Nursing has had to change 3 dressings in the past 24 hours. Patient also refuses to get up to bedside chair as well as not lay on her operative hip. Patient states she continues to have pain in the hip. The oxycodone is helpful when she takes it. Patient also reports she has been on meloxicam at home by other provider and this has not been started here. Objective: Vital signs stable and afebrile. Patient is able to plantarflex and dorsiflex actively. Sensation is intact to light touch to saphenous, sural, superficial and deep peroneal, and tibial distribution. Main Mepilex dressing is with minimal drainage and remainder of dressing clean dry and intact. Mepilex dressing over the pin sites is nearly saturated with serosanguineous drainage. The ursula are still intact. Patient's thigh is soft and supple. There is ecchymosis surrounding the right surgical area. Negative Homans bilaterally, negative signs and symptoms of DVT. - Physical Exam Vitals/I&O's: Vital Signs Temp Pulse Resp BP Pulse Ox 97.5 F L 88 16 115/55 L 95 08/06/20 02:26 08/06/20 02:26 08/06/20 02:26 08/06/20 02:26 08/06/20 07:16 Oxygen Flow Rate (L/min) 2 Oxygen Delivery Method Room Air Weight: 87.2 kg Body Mass Index (BMI) 33.0 Intake and Output for Last 24 Hours 08/04/20 08/05/20 08/06/20 23:59 23:59 23:59 Intake Total 800 / 800 2300 / 2300 Output Total 1125 / 1125 1600 / 1600 300 / 300 Balance -325 / -325 700 / 700 -300 / -300 General: Alert, Oriented x3, Cooperative, No apparent distress Microbiology Past 72 Hours 08/02/20 11:29 Tissue - Hip Gram Stain - Final 08/02/20 11:29 Tissue - Hip Wound Culture - Final No growth aerobically. 08/02/20 11:29 Tissue - Hip Anaerobic Culture - Preliminary No growth in 48 hours. Current Medications Acetaminophen (Tylenol) 1,000 mg PO Q8 [facility] Last Admin: 08/06/20 06:04 Dose: 1,000 mg Documented by: [facility]ir[facility], [facility]) [facility] Last Admin: 08/05/20 16:48 Dose: 81 mg Documented by: Atorvastatin Calcium (Lipitor) 20 mg PO QHS [facility] Last Admin: 08/05/20 20:38 Dose: 20 mg Documented by: Calcium/Vitamin D (Os-Santiago 500mg + D) [facility] Last Admin: 08/05/20 08:48 Dose: 2 tablet Documented by: Clopidogrel Bisulfate (Plavix) 75 mg PO DAILY [facility] Last Admin: 08/05/20 10:05 Dose: 75 mg Documented by: Diphenhydramine HCl (Benadryl) 25 mg PO DAILY PRN PRN PRN Reason: ALLERGIES Last Admin: 08/05/20 06:36 Dose: 25 mg Documented by: Duloxetine HCl (Cymbalta) 60 mg PO DAILY [facility] Last Admin: 08/05/20 10:05 Dose: 60 mg Documented by: Enteral Nutritional Formula (Ensure Surgery) 237 ml PO TIDCM [facility] Last Admin: 08/05/20 16:48 Dose: 237 ml Documented by: Famotidine (Pepcid) 20 mg PO DAILY [facility] Last Admin: 08/05/20 10:04 Dose: 20 mg Documented by: Ferrous Gluconate (Ferrous Gluconate) 324 mg PO DAILY@0800 [facility] Last Admin: 08/05/20 08:47 Dose: 324 mg Documented by: Sodium Chloride () 250 mls @ 15 mls/hr IV .[id number] PRN PRN Reason: Saline Flush Sodium Chloride () 250 mls @ 15 mls/hr IV .[id number] PRN PRN Reason: Additional IVPB Infusion Levothyroxine Sodium (Synthroid) 75 mcg PO DAILY@0600 [facility] Last Admin: 08/06/20 06:04 Dose: 75 mcg Documented by: Loperamide HCl (Imodium) 2 mg PO Q2H PRN PRN PRN Reason: diarrhea Losartan Potassium (Cozaar) 50 mg PO QHS [facility] Last Admin: 08/05/20 20:38 Dose: 50 mg Documented by: Morphine Sulfate () 2 - 4 mg IV Q2H PRN PRN PRN Reason: Pain Score 4-10/10 Last Admin: 08/03/20 16:49 Dose: 2 mg Documented by: Morphine Sulfate () 2 - 4 mg IV Q2H PRN PRN PRN Reason: Pain Score 4-10/10 Multivitamins (Multivitamin) 1 tablet PO DAILY@0800 [facility] Last Admin: 08/05/20 08:48 Dose: 1 tablet Documented by: Ondansetron HCl (Zofran) 4 mg IV Q8H PRN PRN PRN Reason: NAUSEA Oxycodone HCl (Oxyir) 5 - 10 mg PO Q4H PRN PRN PRN Reason: Pain Score 4-1010 Last Admin: 08/06/20 06:04 Dose: 10 mg Documented by: Pantoprazole Sodium (Protonix) 40 mg PO BID [facility] Last Admin: 08/05/20 20:38 Dose: 40 mg Documented by: Senna/Docusate Sodium (Senokot-S, Sally-Colace) 2 tablet PO BID [facility] Last Admin: 08/05/20 20:39 Dose: Not Given Documented by: Sodium Chloride () 10 - 40 ml IV UD PRN PRN Reason: SALINE FLUSH Last Admin: 08/06/20 02:19 Dose: 10 ml Documented by: Zolpidem Tartrate (Ambien (Generic)) 5 mg PO QHS PRN PRN Reason: .INSOMNIA Last Admin: 08/05/20 20:37 Dose: 5 mg Documented by: Medical Necessity - Tobacco Use Smoking Status: Former smoker Tobacco Use: Non-smoker Assessment/Plan All Active Problems (Last Reviewed 03/31/20 @ 09:37 by Sylvie Cole) Pre-op examination (Acute) Abnormal nuclear stress test (Acute) 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 S/P left posterior hip total hip arthroplasty POD #4 2. Continue Pain Medications: Tylenol and oxycodone. Case was discussed with Dr. Coy Chan. At this time we are going to add back in her meloxicam that she has been taking at home. Instead of 15 mg we are going to break it up into 2 doses at 7.5 mg twice daily. I am concerned of adding in stronger narcotic. 3. DVT Prophylaxis: Take 81 mg aspirin twice daily for 4 weeks postoperatively for DVT prophylaxis 4. PT/OT: Toe-touch weightbearing left lower extremity with walker. Continue with posterior hip dislocation precautions 5. Postoperative anemia secondary to acute blood loss from surgery: No lab work has been obtained today. Will order CBC. Yesterday H & H: 8.8/27.8, asymptomatic. Patient did require 2 units of packed red blood cells on August 03, 2020 6. Encouraged Incentive Spirometry 7. Continue postoperative medical management per medicine 8. Drainage from pin site: At this time I discussed case with Dr. Coy Chan. Also discussed with the patient's nurse and we will use ABD with paper tape and do dressing changes as needed. The area is in a difficult area to try to do any compression. Dr. Coy Chan would like to get an additional x-ray to make sure there are no changes with the implants with the left hip replacement. Order will be placed. 9. Disposition: We are still waiting on pre-CERT for patient to go to transitional care unit. With her restrictions I feel this would be very difficult for patient to go home. We will add in the meloxicam to see if this helps with her pain. We will also order x-ray of the left hip to make sure there is been no change since surgery. I have reviewed the [place] Automated Rx Reporting System (OARRS) report for this patient for refill pattern and other prescriber involvement as part of the appropriate surveillance for the provision of acute and chronic controlled medications. The report was requested and reviewed on the date of this entry and was considered in the prescribing process.
--- NOTE | 2020-08-06 07:51 | RAD_ITS ---
STUDY: X-RAY - PELVIS AND LEFT HIP REASON FOR EXAM: Female, 74 years old. PAIN, DRAINAGE. R/O DISLOCATION TECHNIQUE: 2 views of the pelvis and hip. COMPARISON: 08/02/2020 FINDINGS: There is a non-specific bowel gas pattern. Normal visualized soft tissue structures. Right hip replacement is grossly aligned. Left hip replacement redemonstrated with cephalad/posterior dislocation of the femoral stem. RAD/Hip Min 2 Views (Portable) IMPRESSION: Left hip prosthesis dislocation. Electronically Signed: Ryan Navarro MD ([place]) at 9:10 EDT , Service support ,
[2020-08-06] MEDS: Clopidogrel Bisulfate 75 MG Tablet PO (08:01)
[2020-08-06] MEDS: Famotidine 20 MG Tablet PO (08:01)
[2020-08-06] MEDS: Calcium Carb/Vitamin D 1 TABLET Tablet 2 TABLET PO (08:01)
[2020-08-06] MEDS: Ensure Surgery 237 ML LIQUID PO ×2 (08:01→18:25)
[2020-08-06] MEDS: Multivitamins,Therapeutic Tablet 1 TABLET PO (08:02)
[2020-08-06] MEDS: Ferrous Gluconate 324 MG Tablet PO (08:02)
[2020-08-06] MEDS: Senna/Docusate Sodium 1 Tablet 2 TABLET PO ×2 (08:02→20:21)
[2020-08-06] MEDS: Aspirin 81 MG TAB.CHEW PO (08:02)
[2020-08-06] MEDS: Pantoprazole Sodium 40 MG Tablet PO ×2 (08:02→20:23)
[2020-08-06] MEDS: DULoxetine Hcl 60 MG Capsule PO (08:02)
[2020-08-06 08:25] LABS: Absolute Lymphocyte Count 1.64 X10^3/uL (0.83-4.51); Absolute Neutrophil Count 5.1 X10^3/uL (2.0-7.7); Basophil# 0.03 X10^3/uL; Basophil% 0.4 % (0-1); Eosinophil# 0.51 X10^3/uL; Eosinophils% 6.2 % (0-5); Hematocrit 28.1 % (37-47); Hemoglobin 8.8 g/dL (12.0-15.0); Lymphocyte # 1.64 X10^3/ul (4.0); Mean Corp Hgb Conc 31.3 g/dL (32-36); Mean Corpuscular Hgb 29.5 pg (27.0-32.0); Mean Corpuscular Volume 94.3 fL (81-99); Mean Platelet Vol. 8.9 fl (6.2-12.0); Monocyte# 0.85 X10^3/uL; Monocyte% 10.4 % (0-10); NRBC Flagged by Analyzer 0 % (0-5); Neutrophil # 5.12 X10^3/uL (2.7-7.7); Neutrophil % 62.5 % (47-70); Platelet Count 188 K/mm3 (150-450); RBC Distribution Width CV 13.5 % (11.6-14.6); RBC Distribution Width SD 46.5 fl (35.1-43.9); Red Blood Count 2.98 M/mm3 (4.2-5.4); White Blood Count 8.2 K/mm3 (4.4-11.0)
[2020-08-06] MEDS: Meloxicam 7.5 MG Tablet PO (08:39)
--- NOTE | 2020-08-06 10:41 | NURSING ---
0800 Ray PA made aware of drainage to pt left hip dressing.
--- NOTE | 2020-08-06 13:51 | RAD_ITS ---
STUDY: X-RAY - LEFT HIP REASON FOR EXAM: Female, 74 years old. CLOSED HIP REDUCTION IN OR TECHNIQUE: 2 AP hip. COMPARISON: Earlier the same day FINDINGS: 2 images of the left hip demonstrate alignment of left hip prosthesis. No demonstrated fracture. RAD/Hip Min 2 Views (Portable) IMPRESSION: Radiographic alignment of left hip replacement. Electronically Signed: Ryan Navarro MD ([place]) at 15:29 EDT , Service support ,
--- NOTE | 2020-08-06 14:24 | PCM.OPRPT ---
Report of Operation Date of Procedure: 08/06/20 Pre-Operative Diagnosis: Acute posterior dislocation left total hip replacement Post-Operative Diagnosis: Acute posterior dislocation left total hip replacement Surgery/Procedure Performed:: Closed reduction under anesthesia left total hip replacement. Examination under anesthesia and fluoroscopy left total hip replacement Description of Surgical Findings:: We were able to reduce the hip. Patient was stable to 90 degrees flexion but it 20 degrees internal rotation she was unstable. wool handler: Kervin Menjivar Type of Anesthesia:: MAC Anesthesiologist: Marichuy Inman Description of Procedure: On the day of the procedure I met the patient in the preoperative area. We discussed the procedure. We agreed on the appropriate side. Patient was taken back to the operating room. Live fluoroscopy was used to verify the position of the implants and dislocation. At this time the hip was flexed up and internally rotated. My architectural administrative assistant provided appropriate countertraction on the pelvis. He also help stabilize the leg while we obtained x-rays after reduction. Once we are able to adequately internally rotate him flex the hip with longitudinal traction we did feel an adequate clunk signifying reduction. Once this was completed the hip was placed in extension and externally rotated. Live x-rays used to verify weight adequately reduce the hip. On our first attempt we found that we had not adequately reduce the hip on second attempt we had adequately reduce the hip. Live fluoroscopy was used to verify this. We then took the hip through range of motion to test ability. Patient was able to flex to 90 degrees however with internal rotation to 20 degrees she did dislocate. Hip was once again reduced this time with greater ease. X-ray was once again used to verify hip had adequately been reduced. Abduction pillow was placed. Foot was externally rotated. Patient was transferred to the bed. She was then transferred the PACU for recovery. PACU films were reviewed showing hip remained reduced at that point. Postop plan: At this point I am worried about the patient's long-term stability based on intraoperative examination. This appears to be more unstable than her initial examination during the primary procedure. I will have ongoing discussion with the patient as far as appropriateness of returning to surgery in order to revise the implants for further stability but certainly her current stability is concerning. At this time are going to stop aspirin and no other anticoagulation in preparation for any further surgeries. We will switch patient to Lovenox for DVT prophylaxis for quick reversal. Patient will remain toe-touch weightbearing. She will wear her abduction pillow at all times with no hip flexion greater than 70 degrees. Once she is over the walker abduction pillow can be removed so she may ambulate if possible with PT. [facility] Office: - Complications none - Admit VTE Documentation VTE Present on Admission: No VTE Mechan Device Prophylaxis: SCD's, Thigh High RILEY Hose VTE Pharm Prophylaxis ordered?: Yes
--- NOTE | 2020-08-06 14:30 | RAD_ITS ---
STUDY: X-RAY - PELVIS REASON FOR EXAM: Female, 74 years old. POST REDUCTION TECHNIQUE: One view of the pelvis was obtained. COMPARISON: Earlier today FINDINGS: There is a non-specific bowel gas pattern. Normal visualized soft tissue structures. Right hip replacement is grossly aligned. Left hip replacement redemonstrated, now normally aligned. RAD/Pelvis 1 or 2 Views IMPRESSION: Normal alignment of left hip replacement. Electronically Signed: Ryan Navarro MD ([place]) at 15:19 EDT , Service support ,
[2020-08-06] MEDS: Zolpidem Tartrate 5 MG Tablet PO (20:21)
[2020-08-06] MEDS: Losartan Potassium 50 MG Tablet PO (20:22)
[2020-08-06] MEDS: Atorvastatin Calcium 20 MG Tablet PO (20:22)
--- NOTE | 2020-08-06 20:59 | NURSING ---
reinforced hip precautions with pt
[2020-08-07] MEDS: oxyCODONE 5 MG Tablet PO ×3 (05:22→22:09)
[2020-08-07] MEDS: Enoxaparin 40 MG/0.4 ML Syringe SC (05:23)
[2020-08-07] MEDS: 0.9% Saline Lock 10 ML Syringe IV (05:23)
[2020-08-07] MEDS: Acetaminophen 500 MG Tablet 1000 MG PO ×3 (05:23→22:10)
[2020-08-07] MEDS: Levothyroxine 75 MCG Tablet PO (05:23)
[2020-08-07 05:33] VITALS: BP 118/55; PULSE 78; RESP 16; TEMP 36.6; O2SAT 97
--- NOTE | 2020-08-07 07:03 | PCM.PN.BLA ---
Progress Note S: Patient is doing well today. She notes after the reduction her hip pain is significantly improved. She still very reluctant to proceed with movement. She is worried about redislocating. She denies any numbness or tingling. No acute events overnight. She has been stable. O: Afebrile vital signs of been stable. Left lower extremity: Both dressings are clean dry and intact. Minimal drainage from the pin sites is appreciated. Minimal erythema, reactive. Calves are soft and supple. Sensation intact light touch saphenous, sural, superficial peroneal, deep peroneal tibial nerve attributions. Positive dorsiflexion EHL and plantar flexion. A: Postop day 5 left total hip replacement with subsequent dislocation and instability. Postop day 1 from closed reduction. P: Pain control: Pain control improved with current regimen Medical management: Appreciate medical management on this patient she has been medically stable DVT prophylaxis: Patient will begin Lovenox but again quickly be reversed. Discontinued Plavix and aspirin for this time. We will plan for revision components most likely acetabular component to improve stability. Postop anemia: Patient had chronic preoperative anemia exacerbated by intraoperative blood loss. Continue to monitor. May need another transfusion with further surgical intervention. PT: Toe-touch weightbearing. We will leave abduction pillow in place while in bed. Okay to remove abduction pillow when up ambulating with PT. Would not remove pillow until patient is up. Strict posterior hip precautions, no flexion beyond 70 degrees Instability: Patient's hip is currently well reduced. Will take necessary precautions. At this point based on the relief of her pain from reducing the dislocation my suspicion is she dislocated sometime after leaving the PACU where x-rays showed well reduced hip. Based on this amount of instability and significant left of ability to repair posterior structures due to lengthening of the hip as well as extensive exposure based on patient's acetabular bony and femoral deficiencies advised the patient that we should likely revise the hip for improved stability prior to discharge. We will attempt to identify a time and date to do this appropriately. Time we will continue to monitor her CBC and kidney function. She appears patent limited physical therapy. [facility] Office: [facility] Vital Signs/Narrative: Vital Signs Temp Pulse Resp BP Pulse Ox 08/07/20 05:33 97.9 F 78 16 118/55 L 97
[2020-08-07 09:12] VITALS: BP 118/51; PULSE 79; RESP 18; TEMP 36.4; O2SAT 100
[2020-08-07] MEDS: Multivitamins,Therapeutic Tablet 1 TABLET PO (09:26)
[2020-08-07] MEDS: Pantoprazole Sodium 40 MG Tablet PO ×2 (09:26→22:09)
[2020-08-07] MEDS: DiphenhydrAMINE 25 MG Capsule PO (09:26)
[2020-08-07] MEDS: Ferrous Gluconate 324 MG Tablet PO (09:26)
[2020-08-07] MEDS: Famotidine 20 MG Tablet PO (09:26)
[2020-08-07] MEDS: DULoxetine Hcl 60 MG Capsule PO (09:26)
[2020-08-07] MEDS: Senna/Docusate Sodium 1 Tablet 2 TABLET PO ×2 (09:26→22:10)
[2020-08-07] MEDS: Ensure Surgery 237 ML LIQUID PO ×2 (09:27→18:09)
[2020-08-07] MEDS: Calcium Carb/Vitamin D 1 TABLET Tablet 2 TABLET PO (09:27)
--- NOTE | 2020-08-07 10:59 | PCM.PN.HOSP ---
Subjective: Pt states that she is feeling much better since her hip is back in place. Denies sig pain. Is having BM. Vitals/I&O's: Vital Signs Temp Pulse Resp BP Pulse Ox 97.5 F L 79 18 118/51 L 100 08/07/20 09:12 08/07/20 09:12 08/07/20 09:12 08/07/20 09:12 08/07/20 09:12 Oxygen Flow Rate (L/min) 2 Oxygen Delivery Method Room Air Weight: 87.2 kg Body Mass Index (BMI) 33.0 Intake and Output for Last 24 Hours 08/05/20 08/06/20 08/07/20 23:59 23:59 23:59 Intake Total 2300 / 2300 750 / 750 600 / 600 Output Total 1600 / 1600 1400 / 1900 1200 / 1200 Balance 700 / 700 -650 / -1150 -600 / -600 General: Alert, Oriented x3, Cooperative, No apparent distress, Well developed, Well nourished HEENT: Atraumatic, Normocephalic Oral: Moist Mucosa, - - dentures in place Neck: Supple, Trachea Midline Lungs: Clear to auscultation, Normal air movement, No rhonchi, No wheeze, No rales Cardiovascular: Regular rate, Regular Rhythm, Normal S1, Normal S2, No murmurs, No Ectopic Activity, No rub noted, No Gallop Abdomen: Bowel Sounds Present, Soft, Non Tender, Non-Distended, No Hepato-splenomegaly, Obese Extremities: No clubbing, No cyanosis, No edema, Capillary Refill Less than 3 Seconds, Peripheral Pulses Normal Musculoskeletal: - - abd wedge in place between legs Psych/Mental Status: Normal Affect, Appropriate, Alert and oriented to time, place, person, mood and affect Microbiology Past 72 Hours 08/02/20 11:29 Tissue - Hip Gram Stain - Final 08/02/20 11:29 Tissue - Hip Wound Culture - Final No growth aerobically. 08/02/20 11:29 Tissue - Hip Anaerobic Culture - Final No growth in 5 days. Current Medications Acetaminophen (Tylenol) 1,000 mg PO Q8 [facility] Last Admin: 08/07/20 05:23 Dose: 1,000 mg Documented by: Atorvastatin Calcium (Lipitor) 20 mg PO QHS [facility] Last Admin: 08/06/20 20:22 Dose: 20 mg Documented by: Calcium/Vitamin D (Os-Santiago 500mg + D) 2 tablet PO DAILYCM [facility] Last Admin: 08/07/20 09:27 Dose: 2 tablet Documented by: Diphenhydramine HCl (Benadryl) 25 mg PO DAILY PRN PRN PRN Reason: ALLERGIES Last Admin: 08/07/20 09:26 Dose: 25 mg Documented by: Duloxetine HCl (Cymbalta) 60 mg PO DAILY [facility] Last Admin: 08/07/20 09:26 Dose: 60 mg Documented by: Enoxaparin Sodium (Lovenox) 40 mg SC DAILY@0600 [facility] Last Admin: 08/07/20 05:23 Dose: 40 mg Documented by: Enteral Nutritional Formula (Ensure Surgery) 237 ml PO TIDCM [facility] Last Admin: 08/07/20 09:27 Dose: 237 ml Documented by: Famotidine (Pepcid) 20 mg PO DAILY [facility] Last Admin: 08/07/20 09:26 Dose: 20 mg Documented by: Ferrous Gluconate (Ferrous Gluconate) 324 mg PO DAILY@0800 [facility] Last Admin: 08/07/20 09:26 Dose: 324 mg Documented by: Sodium Chloride () 250 mls @ 15 mls/hr IV .[id number] PRN PRN Reason: Saline Flush Sodium Chloride () 250 mls @ 15 mls/hr IV .[id number] PRN PRN Reason: Additional IVPB Infusion Levothyroxine Sodium (Synthroid) 75 mcg PO DAILY@0600 [facility] Last Admin: 08/07/20 05:23 Dose: 75 mcg Documented by: Loperamide HCl (Imodium) 2 mg PO Q2H PRN PRN PRN Reason: diarrhea Losartan Potassium (Cozaar) 50 mg PO QHS [facility] Last Admin: 08/06/20 20:22 Dose: 50 mg Documented by: Morphine Sulfate () 2 - 4 mg IV Q2H PRN PRN PRN Reason: Pain Score 4-10/10 Last Admin: 08/03/20 16:49 Dose: 2 mg Documented by: Morphine Sulfate () 2 - 4 mg IV Q2H PRN PRN PRN Reason: Pain Score 4-10/10 Multivitamins (Multivitamin) 1 tablet PO DAILY@0800 [facility] Last Admin: 08/07/20 09:26 Dose: 1 tablet Documented by: Ondansetron HCl (Zofran) 4 mg IV Q8H PRN PRN PRN Reason: NAUSEA Oxycodone HCl (Oxyir) 5 - 10 mg PO Q4H PRN PRN PRN Reason: Pain Score 4-10/10 Last Admin: 08/07/20 05:22 Dose: 10 mg Documented by: Pantoprazole Sodium (Protonix) 40 mg PO BID [facility] Last Admin: 08/07/20 09:26 Dose: 40 mg Documented by: Senna/Docusate Sodium (Senokot-S, Sally-Colace) 2 tablet PO BID [facility] Last Admin: 08/07/20 09:26 Dose: 2 tablet Documented by: Sodium Chloride () 10 - 40 ml IV UD PRN PRN Reason: SALINE FLUSH Last Admin: 08/07/20 05:23 Dose: 10 ml Documented by: Zolpidem Tartrate (Ambien (Generic)) 5 mg PO QHS PRN PRN Reason: .INSOMNIA Last Admin: 08/06/20 20:21 Dose: 5 mg Documented by: [facility] Vital Signs/Narrative: Vital Signs Temp Pulse Resp BP Pulse Ox 08/07/20 09:12 97.5 F L 79 18 118/51 L 100 Medical Necessity - Tobacco Use Smoking Status: Former smoker Tobacco Use: Non-smoker Assessment/Plan All Active Problems (Last Reviewed 03/31/20 @ 09:37 by Sylvie Cole) Pre-op examination (Acute) Abnormal nuclear stress test (Acute) 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) Status post right hip replacement (Resolved) L BAM POD 5 s/p post dislocation -pain is controlled -moving bowels -PT/OT -TTWB status for now per ortho -went to OR yesterday for reduction of dislocation -abduction pillow while in bed -strict hip precautions with no flexion past 70 degrees -plan is for revision of hip prior to d/c Acute on Chronic Anemia in the post-operative period -takes Fe at baseline -did receive 2 u PRBC here post op -hgb now stable CAD -EZEKIEL to prox diagonal 07/16/2019 -continue ASA/Plavix GERD -continue PPI Hypothyroidism -continue Synthroid Hyponatremia -mild and had been improving -BMP in am HTN/HPL -continue Losartan -continue Crestor Anxiety/Depression -continue Cymbalta HELENA -pt non-compliant with mask at baseline DVT Prophylaxis -Lovenox daily Dispo -Rehab vs TCU once able per ortho -revision of L hip Inpatient E&M: 13193 Subs Hosp L2
[2020-08-07 13:12] VITALS: O2SAT 100
--- NOTE | 2020-08-07 13:27 | CASEMGMT ---
Addendum entered by Deja Fine 08/07/20 14:34: SW received call from pt's GUALBERTO Jara through [facility] and provided update. Marek states he checked on pt's pre-cert and it is still showing pending. Marek provided number [phone]. Original Note: Social Work Note SW received call from Hazel in TCU stating pt's case with [facility] is still pending clinical review. Pre-cert is still pending. 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
[2020-08-07 14:45] VITALS: BP 140/70; PULSE 82; RESP 16; TEMP 36.5; O2SAT 100
[2020-08-07 20:33] VITALS: BP 141/67; PULSE 84; RESP 16; TEMP 36.7; O2SAT 100
[2020-08-07] MEDS: Zolpidem Tartrate 5 MG Tablet PO (22:08)
[2020-08-07] MEDS: Losartan Potassium 50 MG Tablet PO (22:09)
[2020-08-07] MEDS: Atorvastatin Calcium 20 MG Tablet PO (22:09)
[2020-08-08 02:30] VITALS: BP 136/73; PULSE 84; RESP 18; TEMP 36.3; O2SAT 94
[2020-08-08 06:34] LABS: Hematocrit 27.6 % (37-47); Hemoglobin 8.6 g/dL (12.0-15.0); Mean Corp Hgb Conc 31.2 g/dL (32-36); Mean Corpuscular Hgb 29.7 pg (27.0-32.0); Mean Corpuscular Volume 95.2 fL (81-99); Mean Platelet Vol. 8.7 fl (6.2-12.0); Platelet Count 242 K/mm3 (150-450); RBC Distribution Width CV 13.4 % (11.6-14.6); RBC Distribution Width SD 46.8 fl (35.1-43.9); White Blood Count 5.8 K/mm3 (4.4-11.0)
[2020-08-08] MEDS: Acetaminophen 500 MG Tablet 1000 MG PO ×3 (06:37→21:14)
[2020-08-08] MEDS: Enoxaparin 40 MG/0.4 ML Syringe SC (06:38)
[2020-08-08] MEDS: Levothyroxine 75 MCG Tablet PO (06:38)
[2020-08-08 06:57] LABS: Anion Gap 3 (5-15); BUN 16 mg/dL (7-18); BUN/Creat Ratio 27.1 RATIO (10-20); Calcium,Total 8.3 mg/dL (8.5-10.1); Chloride 98 mmol/L (98-107); Creatinine, Serum 0.59 mg/dL (0.55-1.02); EST Glomerular Filtration Rate 105 mL/min (>60); Est Glom Filt Rate - Afr Amer 127 mL/min (>60); Estimated Creatinine Clearance 41.33 ml/min; Glucose 89 mg/dL (74-106); Potassium 4.2 mmol/L (3.5-5.1); Sodium Level 132 mmol/L (136-145)
--- NOTE | 2020-08-08 08:27 | PCM.PN.ORT ---
Subjective: Patient lying in bed sleeping. Patient was very easy to wake. Patient was alert and oriented. Patient states pain is been very well managed. Patient denies chest pain, shortness of breath, calf pain, nausea vomiting. No other complaints at this time. Objective: Patient appears to be resting very comfortably. Moving all extremities purposefully. Vital signs labs reviewed noted medical record. Patient is afebrile. Neurovascular is otherwise intact. Good motion of the right hip, I did not attempt any active range of motion of the left hip at this time. - Physical Exam Vitals/I&O's: Vital Signs Temp Pulse Resp BP Pulse Ox 97.4 F L 84 18 136/73 H 94 08/08/20 02:30 08/08/20 02:30 08/08/20 02:30 08/08/20 02:30 08/08/20 02:30 Oxygen Flow Rate (L/min) 2 Oxygen Delivery Method Room Air Weight: 87.2 kg Body Mass Index (BMI) 33.0 Intake and Output for Last 24 Hours 08/06/20 08/07/20 08/08/20 23:59 23:59 23:59 Intake Total 750 / 750 3000 / 3000 100 / 100 Output Total 1400 / 1900 4750 / 4750 1100 / 1100 Balance -650 / -1150 -1750 / -1750 -1000 / -1000 General: Oriented x3, Cooperative HEENT: PERRLA Oral: Moist Mucosa Cardiovascular: Regular rate Neurological: Cranial nerves II-XII grossly intact Psych/Mental Status: Normal Affect, Alert and oriented to time, place, person, mood and affect Microbiology Past 72 Hours 08/02/20 11:29 Tissue - Hip Gram Stain - Final 08/02/20 11:29 Tissue - Hip Wound Culture - Final No growth aerobically. 08/02/20 11:29 Tissue - Hip Anaerobic Culture - Final No growth in 5 days. Laboratory Results 08/08/20 06:28: WBC 5.8, RBC 2.90 L, Hgb 8.6 L, Hct 27.6 L, MCV 95.2, MCH 29.7, MCHC 31.2 L, RDW Std Deviation 46.8 H, RDW Coeff of Papo 13.4, Plt Count 242, MPV 8.7 08/08/20 06:28: Sodium 132 L, Potassium 4.2, Chloride 98, Carbon Dioxide 31.0, Anion Gap 3 L, BUN 16, Creatinine 0.59, Estim Creat Clear Calc 41.33, Est GFR (MDRD) Af Amer 127, Est GFR (MDRD) Non-Af 105, BUN/Creatinine Ratio 27.1 H, Glucose 89, Calcium 8.3 L Current Medications Acetaminophen (Tylenol) 1,000 mg PO Q8 [facility] Last Admin: 08/08/20 06:37 Dose: 1,000 mg Documented by: Atorvastatin Calcium (Lipitor) 20 mg PO QHS [facility] Last Admin: 08/07/20 22:09 Dose: 20 mg Documented by: Calcium/Vitamin D (Os-Santiago 500mg + D) 2 tablet PO DAILYCM [facility] Last Admin: 08/07/20 09:27 Dose: 2 tablet Documented by: Diphenhydramine HCl (Benadryl) 25 mg PO DAILY PRN PRN PRN Reason: ALLERGIES Last Admin: 08/07/20 09:26 Dose: 25 mg Documented by: Duloxetine HCl (Cymbalta) 60 mg PO DAILY [facility] Last Admin: 08/07/20 09:26 Dose: 60 mg Documented by: Enoxaparin Sodium (Lovenox) 40 mg SC DAILY@0600 [facility] Last Admin: 08/08/20 06:38 Dose: 40 mg Documented by: Enteral Nutritional Formula (Ensure Surgery) 237 ml PO TIDCM [facility] Last Admin: 08/07/20 18:09 Dose: 237 ml Documented by: Famotidine (Pepcid) 20 mg PO DAILY [facility] Last Admin: 08/07/20 09:26 Dose: 20 mg Documented by: Ferrous Gluconate (Ferrous Gluconate) 324 mg PO DAILY@0800 [facility] Last Admin: 08/07/20 09:26 Dose: 324 mg Documented by: Sodium Chloride () 250 mls @ 15 mls/hr IV .[id number] PRN PRN Reason: Saline Flush Sodium Chloride () 250 mls @ 15 mls/hr IV .[id number] PRN PRN Reason: Additional IVPB Infusion Levothyroxine Sodium (Synthroid) 75 mcg PO DAILY@0600 [facility] Last Admin: 08/08/20 06:38 Dose: 75 mcg Documented by: Loperamide HCl (Imodium) 2 mg PO Q2H PRN PRN PRN Reason: diarrhea Losartan Potassium (Cozaar) 50 mg PO QHS [facility] Last Admin: 08/07/20 22:09 Dose: 50 mg Documented by: Morphine Sulfate () 2 - 4 mg IV Q2H PRN PRN PRN Reason: Pain Score 4-10/10 Last Admin: 08/03/20 16:49 Dose: 2 mg Documented by: Morphine Sulfate () 2 - 4 mg IV Q2H PRN PRN PRN Reason: Pain Score 4-10/10 Multivitamins (Multivitamin) 1 tablet PO DAILY@0800 [facility] Last Admin: 08/07/20 09:26 Dose: 1 tablet Documented by: Ondansetron HCl (Zofran) 4 mg IV Q8H PRN PRN PRN Reason: NAUSEA Oxycodone HCl (Oxyir) 5 - 10 mg PO Q4H PRN PRN PRN Reason: Pain Score 4-10/10 Last Admin: 08/07/20 22:09 Dose: 10 mg Documented by: Pantoprazole Sodium (Protonix) 40 mg PO BID [facility] Last Admin: 08/07/20 22:09 Dose: 40 mg Documented by: Senna/Docusate Sodium (Senokot-S, Sally-Colace) 2 tablet PO BID [facility] Last Admin: 08/07/20 22:10 Dose: 2 tablet Documented by: Sodium Chloride () 10 - 40 ml IV UD PRN PRN Reason: SALINE FLUSH Last Admin: 08/07/20 05:23 Dose: 10 ml Documented by: Zolpidem Tartrate (Ambien (Generic)) 5 mg PO QHS PRN PRN Reason: .INSOMNIA Last Admin: 08/07/20 22:08 Dose: 5 mg Documented by: Medical Necessity - Tobacco Use Smoking Status: Former smoker Tobacco Use: Non-smoker Assessment/Plan All Active Problems (Last Reviewed 03/31/20 @ 09:37 by Sylvie Cole) Pre-op examination (Acute) Abnormal nuclear stress test (Acute) 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) Status post right hip replacement (Resolved) Status post revision left total hip arthroplasty. Plan 1. Continue all pain medications as prescribed 2. Continue physical therapy with toe-touch weightbearing 3. Encourage incentive spirometry 4. Dr. Chan will be revising the left total hip scheduled to be announced
[2020-08-08] MEDS: Senna/Docusate Sodium 1 Tablet 2 TABLET PO ×2 (08:36→21:14)
[2020-08-08] MEDS: Famotidine 20 MG Tablet PO (08:36)
[2020-08-08] MEDS: DULoxetine Hcl 60 MG Capsule PO (08:37)
[2020-08-08] MEDS: Calcium Carb/Vitamin D 1 TABLET Tablet 2 TABLET PO (08:37)
[2020-08-08] MEDS: Multivitamins,Therapeutic Tablet 1 TABLET PO (08:37)
[2020-08-08] MEDS: Pantoprazole Sodium 40 MG Tablet PO ×2 (08:37→21:14)
[2020-08-08] MEDS: Ferrous Gluconate 324 MG Tablet PO (08:38)
[2020-08-08] MEDS: Ensure Surgery 237 ML LIQUID PO ×3 (08:40→17:43)
[2020-08-08 08:43] VITALS: BP 138/63; PULSE 79; RESP 16; TEMP 36.3; O2SAT 95
--- NOTE | 2020-08-08 08:47 | PN_ITS ---
Subjective: Pt states that her pain is controlled. She states that she feels like she needs to have a BM today and is concerned about getting up to do that. No other complaints. Vitals/I&O's: Vital Signs Temp Pulse Resp BP Pulse Ox 97.4 F L 79 16 138/63 H 95 08/08/20 08:43 08/08/20 08:43 08/08/20 08:43 08/08/20 08:43 08/08/20 08:43 Oxygen Flow Rate (L/min) 2 Oxygen Delivery Method Room Air Weight: 87.2 kg Body Mass Index (BMI) 33.0 Intake and Output for Last 24 Hours 08/06/20 08/07/20 08/08/20 23:59 23:59 23:59 Intake Total 750 / 750 3000 / 3000 100 / 100 Output Total 1400 / 1900 4750 / 4750 1100 / 1100 Balance -650 / -1150 -1750 / -1750 -1000 / -1000 General: Alert, Oriented x3, Cooperative, No apparent distress, Well developed, Well nourished, - - older WF sitting up in bed, appears comfortable Lungs: Clear to auscultation, Normal air movement, No rhonchi, No wheeze, No rales Cardiovascular: Regular rate, Regular Rhythm, Normal S1, Normal S2, No murmurs, No Ectopic Activity, No rub noted, No Gallop Abdomen: Bowel Sounds Present, Soft, Non Tender, Non-Distended, No Hepato- splenomegaly, Obese, No hernias noted Extremities: No clubbing, No cyanosis, Capillary Refill Less than 3 Seconds, Edema - at surgical site, Peripheral Pulses Normal Skin: No rashes, No breakdown, - - ecchymosis at surgical site with bandage over incision Musculoskeletal: No Muscle Wasting, Arthritic Changes Psych/Mental Status: Normal Affect, Appropriate, Alert and oriented to time, place, person, mood and affect Microbiology Past 72 Hours 08/02/20 11:29 Tissue - Hip Gram Stain - Final 08/02/20 11:29 Tissue - Hip Wound Culture - Final No growth aerobically. 08/02/20 11:29 Tissue - Hip Anaerobic Culture - Final No growth in 5 days. Laboratory Results 08/08/20 06:28: WBC 5.8, RBC 2.90 L, Hgb 8.6 L, Hct 27.6 L, MCV 95.2, MCH 29.7, MCHC 31.2 L, RDW Std Deviation 46.8 H, RDW Coeff of Papo 13.4, Plt Count 242, MPV 8.7 08/08/20 06:28: Sodium 132 L, Potassium 4.2, Chloride 98, Carbon Dioxide 31.0, Anion Gap 3 L, BUN 16, Creatinine 0.59, Estim Creat Clear Calc 41.33, Est GFR (MDRD) Af Amer 127, Est GFR (MDRD) Non-Af 105, BUN/Creatinine Ratio 27.1 H, Glucose 89, Calcium 8.3 L Current Medications Acetaminophen (Tylenol) 1,000 mg PO Q8 [facility] Last Admin: 08/08/20 06:37 Dose: 1,000 mg Documented by: Atorvastatin Calcium (Lipitor) 20 mg PO QHS [facility] Last Admin: 08/07/20 22:09 Dose: 20 mg Documented by: Calcium/Vitamin D (Os-Santiago 500mg + D) 2 tablet PO DAILYCM [facility] Last Admin: 08/08/20 08:37 Dose: 2 tablet Documented by: Diphenhydramine HCl (Benadryl) 25 mg PO DAILY PRN PRN PRN Reason: ALLERGIES Last Admin: 08/07/20 09:26 Dose: 25 mg Documented by: Duloxetine HCl (Cymbalta) 60 mg PO DAILY [facility] Last Admin: 08/08/20 08:37 Dose: 60 mg Documented by: Enoxaparin Sodium (Lovenox) 40 mg SC DAILY@0600 [facility] Last Admin: 08/08/20 06:38 Dose: 40 mg Documented by: Enteral Nutritional Formula (Ensure Surgery) 237 ml PO TIDCM [facility] Last Admin: 08/08/20 08:40 Dose: 237 ml Documented by: Famotidine (Pepcid) 20 mg PO DAILY [facility] Last Admin: 08/08/20 08:36 Dose: 20 mg Documented by: Ferrous Gluconate (Ferrous Gluconate) 324 mg PO DAILY@0800 [facility] Last Admin: 08/08/20 08:38 Dose: 324 mg Documented by: Sodium Chloride () 250 mls @ 15 mls/hr IV .[id number] PRN PRN Reason: Saline Flush Sodium Chloride () 250 mls @ 15 mls/hr IV .[id number] PRN PRN Reason: Additional IVPB Infusion Levothyroxine Sodium (Synthroid) 75 mcg PO DAILY@0600 [facility] Last Admin: 08/08/20 06:38 Dose: 75 mcg Documented by: Loperamide HCl (Imodium) 2 mg PO Q2H PRN PRN PRN Reason: diarrhea Losartan Potassium (Cozaar) 50 mg PO QHS [facility] Last Admin: 08/07/20 22:09 Dose: 50 mg Documented by: Morphine Sulfate () 2 - 4 mg IV Q2H PRN PRN PRN Reason: Pain Score 4-10/10 Last Admin: 08/03/20 16:49 Dose: 2 mg Documented by: Morphine Sulfate () 2 - 4 mg IV Q2H PRN PRN PRN Reason: Pain Score 4-10/10 Multivitamins (Multivitamin) 1 tablet PO DAILY@0800 [facility] Last Admin: 08/08/20 08:37 Dose: 1 tablet Documented by: Ondansetron HCl (Zofran) 4 mg IV Q8H PRN PRN PRN Reason: NAUSEA Oxycodone HCl (Oxyir) 5 - 10 mg PO Q4H PRN PRN PRN Reason: Pain Score 4-10/10 Last Admin: 08/07/20 22:09 Dose: 10 mg Documented by: Pantoprazole Sodium (Protonix) 40 mg PO BID [facility] Last Admin: 08/08/20 08:37 Dose: 40 mg Documented by: Senna/Docusate Sodium (Senokot-S, Sally-Colace) 2 tablet PO BID [facility] Last Admin: 08/08/20 08:36 Dose: 2 tablet Documented by: Sodium Chloride () 10 - 40 ml IV UD PRN PRN Reason: SALINE FLUSH Last Admin: 08/07/20 05:23 Dose: 10 ml Documented by: Zolpidem Tartrate (Ambien (Generic)) 5 mg PO QHS PRN PRN Reason: .INSOMNIA Last Admin: 08/07/20 22:08 Dose: 5 mg Documented by: STROKE Vital Signs/Narrative: Vital Signs Temp Pulse Resp BP Pulse Ox 08/08/20 08:43 97.4 F L 79 16 138/63 H 95 Medical Necessity - Tobacco Use Smoking Status: Former smoker Tobacco Use: Non-smoker Assessment/Plan All Active Problems (Last Reviewed 03/31/20 @ 09:37 by Sylvie Cole) Pre-op examination (Acute) Abnormal nuclear stress test (Acute) 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) Status post right hip replacement (Resolved) L BAM POD 6 s/p post dislocation -pain is controlled -moving bowels -PT/OT -TTWB status for now per ortho -went to [place] 08/06 for reduction of dislocation -abduction pillow while in bed -strict hip precautions with no flexion past 70 degrees -plan is for revision of hip prior to d/c--> await date Acute on Chronic Anemia in the post-operative period -takes Fe at baseline -did receive 2 u PRBC here post op -hgb remains stable CAD -EZEKIEL to prox diagonal 07/16/2019 -continue ASA/Plavix GERD -continue PPI Hypothyroidism -continue Synthroid Hyponatremia -mild and relatively stable -will check every other day -baseline Na appears to be 131-137 range HTN/HPL -continue Losartan -continue Crestor Anxiety/Depression -continue Cymbalta HELENA -pt non-compliant with mask at baseline DVT Prophylaxis -Lovenox daily Dispo -Rehab vs TCU once able per ortho -revision of L hip Inpatient E&M: 88470 Subs Hosp L2
[2020-08-08] MEDS: Fleet Enema 1 ML RECTAL (10:30)
[2020-08-08] MEDS: oxyCODONE 5 MG Tablet PO ×2 (11:21→22:32)
[2020-08-08 14:48] VITALS: BP 124/71; PULSE 86; RESP 16; TEMP 37; O2SAT 98
[2020-08-08 20:32] VITALS: BP 133/70; PULSE 90; RESP 18; TEMP 37.1; O2SAT 96
[2020-08-08] MEDS: Losartan Potassium 50 MG Tablet PO (21:15)
[2020-08-08] MEDS: Atorvastatin Calcium 20 MG Tablet PO (21:16)
[2020-08-08] MEDS: Zolpidem Tartrate 5 MG Tablet PO (22:32)
[2020-08-09 02:40] VITALS: BP 132/69; PULSE 85; RESP 18; TEMP 36.7; O2SAT 95
[2020-08-09] MEDS: Enoxaparin 40 MG/0.4 ML Syringe SC (04:47)
[2020-08-09] MEDS: Acetaminophen 500 MG Tablet 1000 MG PO ×3 (04:47→21:05)
[2020-08-09] MEDS: DiphenhydrAMINE 25 MG Capsule PO (04:47)
[2020-08-09] MEDS: Levothyroxine 75 MCG Tablet PO (04:48)
[2020-08-09 06:07] LABS: Hematocrit 26.5 % (37-47); Hemoglobin 8.3 g/dL (12.0-15.0); Mean Corp Hgb Conc 31.3 g/dL (32-36); Mean Corpuscular Hgb 29.5 pg (27.0-32.0); Mean Corpuscular Volume 94.3 fL (81-99); Mean Platelet Vol. 8.7 fl (6.2-12.0); Platelet Count 256 K/mm3 (150-450); RBC Distribution Width CV 13.3 % (11.6-14.6); RBC Distribution Width SD 46.1 fl (35.1-43.9); Red Blood Count 2.81 M/mm3 (4.2-5.4); White Blood Count 6.6 K/mm3 (4.4-11.0)
[2020-08-09 06:27] LABS: Anion Gap 5 (5-15); BUN 17 mg/dL (7-18); BUN/Creat Ratio 29.5 RATIO (10-20); Calcium,Total 8.2 mg/dL (8.5-10.1); Chloride 98 mmol/L (98-107); Creatinine, Serum 0.58 mg/dL (0.55-1.02); EST Glomerular Filtration Rate 108 mL/min (>60); Est Glom Filt Rate - Afr Amer 130 mL/min (>60); Estimated Creatinine Clearance 41.33 ml/min; Glucose 85 mg/dL (74-106); Potassium 3.9 mmol/L (3.5-5.1); Sodium Level 133 mmol/L (136-145)
--- NOTE | 2020-08-09 07:13 | PCM.PN.ORT ---
Subjective: Is doing well. She is comfortable. Romero is placed. She is getting limited activity due to her instability. Plan is for surgery this Friday to revise the acetabular component and improve stability of the hip. I went through the plan with the patient. We will discontinue Lovenox after tomorrow morning's dose. She has been getting up to bedside with physical therapy. They have not attempted much ambulation based on the patient's report. - Physical Exam Vitals/I&O's: Vital Signs Temp Pulse Resp BP Pulse Ox 98.0 F 85 18 132/69 H 95 08/09/20 02:40 08/09/20 02:40 08/09/20 02:40 08/09/20 02:40 08/09/20 02:40 Oxygen Flow Rate (L/min) 2 Oxygen Delivery Method Room Air Weight: 192 lb 3.889 oz Body Mass Index (BMI) 33.0 Intake and Output for Last 24 Hours 08/07/20 08/08/20 08/09/20 23:59 23:59 23:59 Intake Total 3000 / 3000 550 / 550 Output Total 4750 / 4750 3300 / 3300 150 / 150 Balance -1750 / -1750 -2750 / -2750 -150 / -150 General: Alert, Oriented x3, Cooperative Extremities: - - Left lower extremity: Primary incision dressing is clean dry and intact, there remains some serous drainage on the pin sites dress. No erythema around the SITEs SILT saphenous, sural, superficial peroneal, deep peroneal, and tibial distributions Motors intact EHL, DF, PF calves are soft and supple Microbiology Past 72 Hours 08/02/20 11:29 Tissue - Hip Gram Stain - Final 08/02/20 11:29 Tissue - Hip Wound Culture - Final No growth aerobically. 08/02/20 11:29 Tissue - Hip Anaerobic Culture - Final No growth in 5 days. Laboratory Results 08/09/20 05:51: WBC 6.6, RBC 2.81 L, Hgb 8.3 L, Hct 26.5 L, MCV 94.3, MCH 29.5, MCHC 31.3 L, RDW Std Deviation 46.1 H, RDW Coeff of Papo 13.3, Plt Count 256, MPV 8.7 08/09/20 05:51: Sodium 133 L, Potassium 3.9, Chloride 98, Carbon Dioxide 30.0, Anion Gap 5, BUN 17, Creatinine 0.58, Estim Creat Clear Calc 41.33, Est GFR (MDRD) Af Amer 130, Est GFR (MDRD) Non-Af 108, BUN/Creatinine Ratio 29.5 H, Glucose 85, Calcium 8.2 L Current Medications Acetaminophen (Tylenol) 1,000 mg PO Q8 [facility] Last Admin: 08/09/20 04:47 Dose: 1,000 mg Documented by: Atorvastatin Calcium (Lipitor) 20 mg PO QHS [facility] Last Admin: 08/08/20 21:16 Dose: 20 mg Documented by: Calcium/Vitamin D (Os-Santiago 500mg + D) 2 tablet PO DAILYCM [facility] Last Admin: 08/08/20 08:37 Dose: 2 tablet Documented by: Diphenhydramine HCl (Benadryl) 25 mg PO DAILY PRN PRN PRN Reason: ALLERGIES Last Admin: 08/09/20 04:47 Dose: 25 mg Documented by: Duloxetine HCl (Cymbalta) 60 mg PO DAILY [facility] Last Admin: 08/08/20 08:37 Dose: 60 mg Documented by: Enoxaparin Sodium (Lovenox) 40 mg SC DAILY@0600 [facility] Last Admin: 08/09/20 04:47 Dose: 40 mg Documented by: Enteral Nutritional Formula (Ensure Surgery) 237 ml PO TIDCM [facility] Last Admin: 08/08/20 17:43 Dose: 237 ml Documented by: Famotidine (Pepcid) 20 mg PO DAILY [facility] Last Admin: 08/08/20 08:36 Dose: 20 mg Documented by: Ferrous Gluconate (Ferrous Gluconate) 324 mg PO DAILY@0800 [facility] Last Admin: 08/08/20 08:38 Dose: 324 mg Documented by: Sodium Chloride () 250 mls @ 15 mls/hr IV .[id number] PRN PRN Reason: Saline Flush Sodium Chloride () 250 mls @ 15 mls/hr IV .[id number] PRN PRN Reason: Additional IVPB Infusion Levothyroxine Sodium (Synthroid) 75 mcg PO DAILY@0600 [facility] Last Admin: 08/09/20 04:48 Dose: 75 mcg Documented by: Loperamide HCl (Imodium) 2 mg PO Q2H PRN PRN PRN Reason: diarrhea Losartan Potassium (Cozaar) 50 mg PO QHS [facility] Last Admin: 08/08/20 21:15 Dose: 50 mg Documented by: Morphine Sulfate () 2 - 4 mg IV Q2H PRN PRN PRN Reason: Pain Score 4-10/10 Last Admin: 08/03/20 16:49 Dose: 2 mg Documented by: Morphine Sulfate () 2 - 4 mg IV Q2H PRN PRN PRN Reason: Pain Score 4-10/10 Multivitamins (Multivitamin) 1 tablet PO DAILY@0800 [facility] Last Admin: 08/08/20 08:37 Dose: 1 tablet Documented by: Ondansetron HCl (Zofran) 4 mg IV Q8H PRN PRN PRN Reason: NAUSEA Oxycodone HCl (Oxyir) 5 - 10 mg PO Q4H PRN PRN PRN Reason: Pain Score 4-10/10 Last Admin: 08/08/20 22:32 Dose: 10 mg Documented by: Pantoprazole Sodium (Protonix) 40 mg PO BID [facility] Last Admin: 08/08/20 21:14 Dose: 40 mg Documented by: Senna/Docusate Sodium (Senokot-S, Sally-Colace) 2 tablet PO BID [facility] Last Admin: 08/08/20 21:14 Dose: 2 tablet Documented by: Sodium Chloride () 10 - 40 ml IV UD PRN PRN Reason: SALINE FLUSH Last Admin: 08/07/20 05:23 Dose: 10 ml Documented by: Zolpidem Tartrate (Ambien (Generic)) 5 mg PO QHS PRN PRN Reason: .INSOMNIA Last Admin: 08/08/20 22:32 Dose: 5 mg Documented by: Medical Necessity - Tobacco Use Smoking Status: Former smoker Tobacco Use: Non-smoker Assessment/Plan All Active Problems (Last Reviewed 03/31/20 @ 09:37 by Sylvie Cole) Pre-op examination (Acute) Abnormal nuclear stress test (Acute) 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) Status post right hip replacement (Resolved) Postop day 7 left total hip replacement PT: This time with assistance getting up I think is appropriate to remove the abduction brace and allow the patient to ambulate. I would encourage therapy to do this today once patient is safely up. Using toe-touch weightbearing restrictions. DVT prophylaxis: Lovenox will discontinue after tomorrow morning's dose. Anemia: Acute on chronic renal anemia related to intraoperative blood loss. Stable at this time. Patient has received 2 units. Would likely require additional blood during second procedure. Cell Saver will be used. Pain control: Currently under control much more comfortable with hip adequately reduced. Continue with current regimen. Medical management: Appreciate medical management of this patient. She remained stable Instability: Based on patient's acute instability and postreduction examination I do believe patient is at high risk for repeat dislocations. My concern is that if she goes home and redislocated she may have a fall causing further injury. This time we have elected to proceed with revision of the components for improved stability prior to discharge from the hospital. She will be n.p.o. after midnight tomorrow. Hold Lovenox after tomorrow morning's dose. We will plan on surgery Friday afternoon. Patient has been adequately consented for surgery. [facility] Office:
[2020-08-09 08:12] VITALS: BP 138/57; PULSE 75; RESP 18; TEMP 36.9; O2SAT 98
[2020-08-09] MEDS: DULoxetine Hcl 60 MG Capsule PO (08:23)
[2020-08-09] MEDS: Ensure Surgery 237 ML LIQUID PO ×2 (08:23→16:52)
[2020-08-09] MEDS: Calcium Carb/Vitamin D 1 TABLET Tablet 2 TABLET PO (08:23)
[2020-08-09] MEDS: Multivitamins,Therapeutic Tablet 1 TABLET PO (08:23)
[2020-08-09] MEDS: Senna/Docusate Sodium 1 Tablet 2 TABLET PO ×2 (08:23→21:04)
[2020-08-09] MEDS: Ferrous Gluconate 324 MG Tablet PO (08:24)
[2020-08-09] MEDS: Pantoprazole Sodium 40 MG Tablet PO ×2 (08:24→21:05)
[2020-08-09] MEDS: Famotidine 20 MG Tablet PO (08:24)
--- NOTE | 2020-08-09 11:05 | PCM.PN.HOSP ---
Subjective: Pt states that her pain is controlled. Having trouble with BM. Plan is for OR on am Friday per nsg and notes. Pt aware. States that she would like to use a bedpan now.--> nsg notified Vitals/I&O's: Vital Signs Temp Pulse Resp BP Pulse Ox 98.4 F 75 18 138/57 H 98 08/09/20 08:12 08/09/20 08:12 08/09/20 08:12 08/09/20 08:12 08/09/20 08:12 Oxygen Flow Rate (L/min) 2 Oxygen Delivery Method Nasal Cannula Weight: 87.2 kg Body Mass Index (BMI) 33.0 Intake and Output for Last 24 Hours 08/07/20 08/08/20 08/09/20 23:59 23:59 23:59 Intake Total 3000 / 3000 550 / 550 Output Total 4750 / 4750 3300 / 3300 150 / 150 Balance -1750 / -1750 -2750 / -2750 -150 / -150 General: Alert, Oriented x3, Cooperative, No apparent distress, Well developed, Well nourished, - - WF lying in bed watching TV Oral: Moist Mucosa Lungs: Clear to auscultation, Normal air movement, No rhonchi, No wheeze, No rales Cardiovascular: Regular rate, Regular Rhythm, Normal S1, Normal S2, No murmurs, No Ectopic Activity, No rub noted, No Gallop Abdomen: Bowel Sounds Present, Soft, Non Tender, Non-Distended, Obese, No hernias noted Extremities: No clubbing, No cyanosis, Edema - trace L LE Neurological: Cranial nerves II-XII grossly intact, Neuro grossly intact Psych/Mental Status: Normal Affect, Appropriate Microbiology Past 72 Hours 08/02/20 11:29 Tissue - Hip Gram Stain - Final 08/02/20 11:29 Tissue - Hip Wound Culture - Final No growth aerobically. 08/02/20 11:29 Tissue - Hip Anaerobic Culture - Final No growth in 5 days. Laboratory Results 08/09/20 05:51: WBC 6.6, RBC 2.81 L, Hgb 8.3 L, Hct 26.5 L, MCV 94.3, MCH 29.5, MCHC 31.3 L, RDW Std Deviation 46.1 H, RDW Coeff of Papo 13.3, Plt Count 256, MPV 8.7 08/09/20 05:51: Sodium 133 L, Potassium 3.9, Chloride 98, Carbon Dioxide 30.0, Anion Gap 5, BUN 17, Creatinine 0.58, Estim Creat Clear Calc 41.33, Est GFR (MDRD) Af Amer 130, Est GFR (MDRD) Non-Af 108, BUN/Creatinine Ratio 29.5 H, Glucose 85, Calcium 8.2 L Current Medications Acetaminophen (Tylenol) 1,000 mg PO Q8 [facility] Last Admin: 08/09/20 04:47 Dose: 1,000 mg Documented by: Atorvastatin Calcium (Lipitor) 20 mg PO QHS [facility] Last Admin: 08/08/20 21:16 Dose: 20 mg Documented by: Calcium/Vitamin D (Os-Santiago 500mg + D) 2 tablet PO DAILYCM [facility] Last Admin: 08/09/20 08:23 Dose: 2 tablet Documented by: Diphenhydramine HCl (Benadryl) 25 mg PO DAILY PRN PRN PRN Reason: ALLERGIES Last Admin: 08/09/20 04:47 Dose: 25 mg Documented by: Duloxetine HCl (Cymbalta) 60 mg PO DAILY [facility] Last Admin: 08/09/20 08:23 Dose: 60 mg Documented by: Enoxaparin Sodium (Enoxaparin 40 Mg/0.4 Ml Syringe) 40 mg SC DAILY@0600 [facility] Stop: 08/10/20 12:00 Last Admin: 08/09/20 04:47 Dose: 40 mg Documented by: Enteral Nutritional Formula (Ensure Surgery) 237 ml PO TIDCM [facility] Last Admin: 08/09/20 08:23 Dose: 237 ml Documented by: Famotidine (Pepcid) 20 mg PO DAILY [facility] Last Admin: 08/09/20 08:24 Dose: 20 mg Documented by: Ferrous Gluconate (Ferrous Gluconate) 324 mg PO DAILY@0800 [facility] Last Admin: 08/09/20 08:24 Dose: 324 mg Documented by: Sodium Chloride () 250 mls @ 15 mls/hr IV .[id number] PRN PRN Reason: Saline Flush Sodium Chloride () 250 mls @ 15 mls/hr IV .[id number] PRN PRN Reason: Additional IVPB Infusion Levothyroxine Sodium (Synthroid) 75 mcg PO DAILY@0600 [facility] Last Admin: 10/14/20 04:48 Dose: 75 mcg Documented by: Loperamide HCl (Imodium) 2 mg PO Q2H PRN PRN PRN Reason: diarrhea Losartan Potassium (Cozaar) 50 mg PO QHS [facility] Last Admin: 08/08/20 21:15 Dose: 50 mg Documented by: Morphine Sulfate () 2 - 4 mg IV Q2H PRN PRN PRN Reason: Pain Score 4-10/10 Last Admin: 08/03/20 16:49 Dose: 2 mg Documented by: Morphine Sulfate () 2 - 4 mg IV Q2H PRN PRN PRN Reason: Pain Score 4-10/10 Multivitamins (Multivitamin) 1 tablet PO DAILY@0800 [facility] Last Admin: 08/09/20 08:23 Dose: 1 tablet Documented by: Ondansetron HCl (Zofran) 4 mg IV Q8H PRN PRN PRN Reason: NAUSEA Oxycodone HCl (Oxyir) 5 - 10 mg PO Q4H PRN PRN PRN Reason: Pain Score 4-10/10 Last Admin: 08/08/20 22:32 Dose: 10 mg Documented by: Pantoprazole Sodium (Protonix) 40 mg PO BID [facility] Last Admin: 08/09/20 08:24 Dose: 40 mg Documented by: Senna/Docusate Sodium (Senokot-S, Sally-Colace) 2 tablet PO BID [facility] Last Admin: 08/09/20 08:23 Dose: 2 tablet Documented by: Sodium Chloride () 10 - 40 ml IV UD PRN PRN Reason: SALINE FLUSH Last Admin: 08/07/20 05:23 Dose: 10 ml Documented by: Zolpidem Tartrate (Ambien (Generic)) 5 mg PO QHS PRN PRN Reason: .INSOMNIA Last Admin: 08/08/20 22:32 Dose: 5 mg Documented by: STROKE Vital Signs/Narrative: Vital Signs Temp Pulse Resp BP Pulse Ox 08/09/20 08:12 98.4 F 75 18 138/57 H 98 Medical Necessity - Tobacco Use Smoking Status: Former smoker Tobacco Use: Non-smoker Assessment/Plan All Active Problems (Last Reviewed 03/31/20 @ 09:37 by Sylvie Cole) Pre-op examination (Acute) Abnormal nuclear stress test (Acute) 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) Status post right hip replacement (Resolved) L BAM POD 3 s/p post dislocation -pain is controlled -moving bowels -PT/OT -TTWB status for now per ortho -went to OR 08/06 for reduction of dislocation -abduction pillow while in bed -strict hip precautions with no flexion past 70 degrees -plan is for revision of hip on 08/11 Acute on Chronic Anemia in the post-operative period -takes Fe at baseline -did receive 2 u PRBC here post op -hgb remains stable-->8.3 today -repeat am 08/11 CAD -EZEKEIL to prox diagonal 07/16/2019 -continue ASA/Plavix GERD -continue PPI Hypothyroidism -continue Synthroid Hyponatremia -mild and relatively stable -repeat am of 08/11 -baseline Na appears to be 131-137 range HTN/HPL -continue Losartan -continue Crestor Anxiety/Depression -continue Cymbalta HELENA -pt non-compliant with mask at baseline DVT Prophylaxis -Lovenox daily Dispo -Rehab vs TCU once able per ortho -revision of L hip Inpatient E&M: 23837 Subs Hosp L2
[2020-08-09] MEDS: Polyethylene Glycol 3350 17 GM PACKET PO (12:13)
[2020-08-09] MEDS: oxyCODONE 5 MG Tablet PO ×2 (13:41→22:59)
[2020-08-09] MEDS: Fleet Enema 1 ML RECTAL (14:52)
[2020-08-09 20:50] VITALS: BP 126/70; PULSE 80; RESP 16; TEMP 36.9; O2SAT 95
[2020-08-09] MEDS: Atorvastatin Calcium 20 MG Tablet PO (21:05)
[2020-08-09] MEDS: Losartan Potassium 50 MG Tablet PO (21:05)
[2020-08-09] MEDS: Zolpidem Tartrate 5 MG Tablet PO (22:59)
[2020-08-10 03:00] VITALS: BP 143/82; PULSE 82; RESP 18; TEMP 36.4; O2SAT 95
[2020-08-10] MEDS: 0.9% Saline Lock 10 ML Syringe IV (03:28)
[2020-08-10] MEDS: DiphenhydrAMINE 25 MG Capsule PO (03:28)
[2020-08-10] MEDS: Acetaminophen 500 MG Tablet 1000 MG PO ×3 (05:39→21:46)
[2020-08-10] MEDS: Enoxaparin 40 MG/0.4 ML Syringe SC (05:39)
[2020-08-10] MEDS: Levothyroxine 75 MCG Tablet PO (05:39)
[2020-08-10 06:07] LABS: Hematocrit 29.7 % (37-47); Hemoglobin 9.2 g/dL (12.0-15.0); Mean Corpuscular Hgb 29.5 pg (27.0-32.0); Mean Corpuscular Volume 95.2 fL (81-99); Mean Platelet Vol. 8.4 fl (6.2-12.0); Platelet Count 299 K/mm3 (150-450); RBC Distribution Width CV 13.5 % (11.6-14.6); RBC Distribution Width SD 46.5 fl (35.1-43.9); Red Blood Count 3.12 M/mm3 (4.2-5.4)
--- NOTE | 2020-08-10 08:45 | PN_ITS ---
Subjective: Pt states that she had a large BM yesterday and noted that it was painful, Pt is on scheduled Senna and Miralax. Pain is well controlled. States that she is done getting joints replaced. This is her 3rd and she states if the R knee needs done she would rather be in a WC. Vitals/I&O's: Vital Signs Temp Pulse Resp BP Pulse Ox 97.6 F L 82 18 143/82 H 95 08/10/20 03:00 08/10/20 03:00 08/10/20 03:00 08/10/20 03:00 08/10/20 03:00 Oxygen Flow Rate (L/min) 2 Oxygen Delivery Method Room Air Weight: 87.2 kg Body Mass Index (BMI) 33.0 Intake and Output for Last 24 Hours 08/08/20 08/09/20 08/10/20 23:59 23:59 23:59 Intake Total 550 / 550 800 / 800 240 / 240 Output Total 3300 / 3300 2250 / 2250 700 / 700 Balance -2750 / -2750 -1450 / -1450 -460 / -460 General: Alert, Oriented x3, Cooperative, No apparent distress, Well developed, Well nourished Lungs: Clear to auscultation, Normal air movement, No rhonchi, No wheeze, No rales Cardiovascular: Regular rate, Regular Rhythm, Normal S1, Normal S2, No murmurs, No Ectopic Activity, No rub noted, No Gallop Abdomen: Bowel Sounds Present, Soft, Non Tender, Non-Distended Extremities: No clubbing, No cyanosis, Capillary Refill Less than 3 Seconds, Edema - trace L LE, Peripheral Pulses Normal Musculoskeletal: - - abductor pillow and polar ice in place Psych/Mental Status: Normal Affect, Appropriate, Alert and oriented to time, place, person, mood and affect Microbiology Past 72 Hours 08/02/20 11:29 Tissue - Hip Gram Stain - Final 08/02/20 11:29 Tissue - Hip Wound Culture - Final No growth aerobically. 08/02/20 11:29 Tissue - Hip Anaerobic Culture - Final No growth in 5 days. Laboratory Results 08/10/20 05:40: WBC 7.0, RBC 3.12 L, Hgb 9.2 L, Hct 29.7 L, MCV 95.2, MCH 29.5, MCHC 31.0 L, RDW Std Deviation 46.5 H, RDW Coeff of Papo 13.5, Plt Count 299, MPV 8.4 Current Medications Acetaminophen (Tylenol) 1,000 mg PO Q8 [facility] Last Admin: 08/10/20 05:39 Dose: 1,000 mg Documented by: Atorvastatin Calcium (Lipitor) 20 mg PO QHS [facility] Last Admin: 08/09/20 21:05 Dose: 20 mg Documented by: Calcium/Vitamin D (Os-Santiago 500mg + D) 2 tablet PO DAILYCM [facility] Last Admin: 08/09/20 08:23 Dose: 2 tablet Documented by: Diphenhydramine HCl (Benadryl) 25 mg PO DAILY PRN PRN PRN Reason: ALLERGIES Last Admin: 08/10/20 03:28 Dose: 25 mg Documented by: Duloxetine HCl (Cymbalta) 60 mg PO DAILY [facility] Last Admin: 08/09/20 08:23 Dose: 60 mg Documented by: Enoxaparin Sodium (Enoxaparin 40 Mg/0.4 Ml Syringe) 40 mg SC DAILY@0600 [facility] Stop: 08/10/20 12:00 Last Admin: 08/10/20 05:39 Dose: 40 mg Documented by: Enteral Nutritional Formula (Ensure Surgery) 237 ml PO TIDCM [facility] Last Admin: 08/09/20 16:52 Dose: 237 ml Documented by: Famotidine (Pepcid) 20 mg PO DAILY [facility] Last Admin: 08/09/20 08:24 Dose: 20 mg Documented by: Ferrous Gluconate (Ferrous Gluconate) 324 mg PO DAILY@0800 [facility] Last Admin: 08/09/20 08:24 Dose: 324 mg Documented by: Sodium Chloride () 250 mls @ 15 mls/hr IV .[id number] PRN PRN Reason: Saline Flush Sodium Chloride () 250 mls @ 15 mls/hr IV .[id number] PRN PRN Reason: Additional IVPB Infusion Levothyroxine Sodium (Synthroid) 75 mcg PO DAILY@0600 [facility] Last Admin: 08/10/20 05:39 Dose: 75 mcg Documented by: Loperamide HCl (Imodium) 2 mg PO Q2H PRN PRN PRN Reason: diarrhea Losartan Potassium (Cozaar) 50 mg PO QHS [facility] Last Admin: 08/09/20 21:05 Dose: 50 mg Documented by: Morphine Sulfate () 2 - 4 mg IV Q2H PRN PRN PRN Reason: Pain Score 4-10/10 Last Admin: 08/03/20 16:49 Dose: 2 mg Documented by: Morphine Sulfate () 2 - 4 mg IV Q2H PRN PRN PRN Reason: Pain Score 4-10/10 Multivitamins (Multivitamin) 1 tablet PO DAILY@0800 [facility] Last Admin: 08/09/20 08:23 Dose: 1 tablet Documented by: Ondansetron HCl (Zofran) 4 mg IV Q8H PRN PRN PRN Reason: NAUSEA Oxycodone HCl (Oxyir) 5 - 10 mg PO Q4H PRN PRN PRN Reason: Pain Score 4-10/10 Last Admin: 08/09/20 22:59 Dose: 10 mg Documented by: Pantoprazole Sodium (Protonix) 40 mg PO BID [facility] Last Admin: 08/09/20 21:05 Dose: 40 mg Documented by: Polyethylene Glycol (Polyethylene Glycol 3350 17 Gm Packet) 17 gm PO DAILY [facility] Last Admin: 08/09/20 12:13 Dose: 17 gm Documented by: Senna/Docusate Sodium (Senokot-S, Sally-Colace) 2 tablet PO BID [facility] Last Admin: 08/09/20 21:04 Dose: 2 tablet Documented by: Sodium Chloride () 10 - 40 ml IV UD PRN PRN Reason: SALINE FLUSH Last Admin: 08/10/20 03:28 Dose: 10 ml Documented by: Zolpidem Tartrate (Ambien (Generic)) 5 mg PO QHS PRN PRN Reason: .INSOMNIA Last Admin: 08/09/20 22:59 Dose: 5 mg Documented by: Medical Necessity - Tobacco Use Smoking Status: Former smoker Tobacco Use: Non-smoker Assessment/Plan All Active Problems (Last Reviewed 03/31/20 @ 09:37 by Sylvie Cole) Pre-op examination (Acute) Abnormal nuclear stress test (Acute) 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) Status post right hip replacement (Resolved) L BAM POD 3 s/p post dislocation -pain is controlled -moving bowels -PT/OT -TTWB status for now per ortho -went to OR 08/06 for reduction of dislocation -abduction pillow while in bed -strict hip precautions with no flexion past 70 degrees -plan is for revision of hip on 08/11--> tomorrow Acute on Chronic Anemia in the post-operative period -takes Fe at baseline -did receive 2 u PRBC here post op -hgb remains stable-->9.2 today -repeat am 08/11 CAD -EZEKIEL to prox diagonal 07/16/2019 -continue ASA/Plavix GERD -continue PPI Hypothyroidism -continue Synthroid Hyponatremia -mild and relatively stable -repeat am of 08/11 -baseline Na appears to be 131-137 range Constipation -Lg BM yesterday -has stool softener ordered -will add miralax daily -this is evidently a chronic issue HTN/HPL -continue Losartan -continue Crestor Anxiety/Depression -continue Cymbalta HELENA -pt non-compliant with mask at baseline DVT Prophylaxis -Lovenox daily Dispo -Rehab vs TCU once able per ortho -revision of L hip in am Inpatient E&M: 53447 Subs Hosp L2
[2020-08-10] MEDS: Polyethylene Glycol 3350 17 GM PACKET PO (09:22)
[2020-08-10] MEDS: Multivitamins,Therapeutic Tablet 1 TABLET PO (09:22)
[2020-08-10] MEDS: Calcium Carb/Vitamin D 1 TABLET Tablet 2 TABLET PO (09:22)
[2020-08-10] MEDS: Senna/Docusate Sodium 1 Tablet 2 TABLET PO (09:23)
[2020-08-10] MEDS: DULoxetine Hcl 60 MG Capsule PO (09:23)
[2020-08-10] MEDS: Famotidine 20 MG Tablet PO (09:23)
[2020-08-10] MEDS: Pantoprazole Sodium 40 MG Tablet PO ×2 (09:23→21:47)
[2020-08-10] MEDS: Ferrous Gluconate 324 MG Tablet PO (09:23)
[2020-08-10] MEDS: Ensure Surgery 237 ML LIQUID PO (09:32)
[2020-08-10 09:33] VITALS: BP 135/60; PULSE 77; RESP 18; TEMP 36.8; O2SAT 98
--- NOTE | 2020-08-10 10:05 | CASEMGMT ---
Addendum entered by Deja Fine 08/10/20 11:30: AMAURY received message from Elin in TCU stating she spoke with [facility]. [facility] is making TCU withdraw prior authorization and requests TCU to resubmit new pre-cert once pt has surgery and PT/OT works with pt again. Plan: TCU pending pre-cert. Pt will need new pre-cert for TCU. Addendum entered by Deja Fine 08/10/20 10:59: SW updated pt that pre-cert has been obtained, but pt not medically ready for discharge yet. Pt states understanding. Original Note: Social Work Note SW received message from Elin in TCU stating pre-cert has been obtained. AMAURY updated Elin that pt is scheduled for hip revision tomorrow. Elin states that she will check with [facility] in regards to pt's pre-cert and how long it is good for. Plan: TCU. 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
--- NOTE | 2020-08-10 12:56 | PN.ORTHO_ITS ---
Subjective: Patient is resting comfortably in the bed. She denies any chest pain, shortness of breath, fevers chills, or or any calf pain. Patient has been on Lovenox for DVT prophylaxis. Her pain has been well-controlled. Patient will be proceeding with a revision tomorrow August 11, [address] Coy Chan. Objective: Vital signs stable, afebrile Patient is able to plantarflex/dorsiflex bilateral lower extremities Negative calf pain bilaterally, negative Homans bilaterally, current Mepilex dressing is intact with no drainage - Physical Exam Vitals/I&O's: Vital Signs Temp Pulse Resp BP Pulse Ox 98.3 F 77 18 135/60 H 98 08/10/20 09:33 08/10/20 09:33 08/10/20 09:33 08/10/20 09:33 08/10/20 09:33 Oxygen Flow Rate (L/min) 2 Oxygen Delivery Method Room Air Weight: 87.2 kg Body Mass Index (BMI) 33.0 Intake and Output for Last 24 Hours 08/08/20 08/09/20 08/10/20 23:59 23:59 23:59 Intake Total 550 / 550 800 / 800 240 / 240 Output Total 3300 / 3300 2250 / 2250 700 / 700 Balance -2750 / -2750 -1450 / -1450 -460 / -460 General: Alert, Oriented x3, Cooperative, No apparent distress Laboratory Results 08/10/20 05:40: WBC 7.0, RBC 3.12 L, Hgb 9.2 L, Hct 29.7 L, MCV 95.2, MCH 29.5, MCHC 31.0 L, RDW Std Deviation 46.5 H, RDW Coeff of Papo 13.5, Plt Count 299, MPV 8.4 Current Medications Acetaminophen (Tylenol) 1,000 mg PO Q8 [facility] Last Admin: 08/10/20 05:39 Dose: 1,000 mg Documented by: Atorvastatin Calcium (Lipitor) 20 mg PO QHS [facility] Last Admin: 08/09/20 21:05 Dose: 20 mg Documented by: Calcium/Vitamin D (Os-Santiago 500mg + D) 2 tablet PO DAILYCM [facility]PL[facility]ED [facility] Last Admin: 08/10/20 09:22 Dose: 2 tablet Documented by: Diphenhydramine HCl (Benadryl) 25 mg PO DAILY PRN PRN PRN Reason: ALLERGIES Last Admin: 08/10/20 03:28 Dose: 25 mg Documented by: Duloxetine HCl (Cymbalta) 60 mg PO DAILY [facility] Last Admin: 08/10/20 09:23 Dose: 60 mg Documented by: Enteral Nutritional Formula (Ensure Surgery) 237 ml PO TIDCM [facility]PL[facility] BY [facility] Last Admin: 08/10/20 12:19 Dose: Not Given Documented by: Famotidine (Pepcid) 20 mg PO DAILY [facility] Last Admin: 08/10/20 09:23 Dose: 20 mg Documented by: Ferrous Gluconate (Ferrous Gluconate) 324 mg PO DAILY@0800 [facility] Last Admin: 08/10/20 09:23 Dose: 324 mg Documented by: Sodium Chloride () 250 mls @ 15 mls/hr IV .[id number] PRN PRN Reason: Saline Flush Sodium Chloride () 250 mls @ 15 mls/hr IV .[id number] PRN PRN Reason: Additional IVPB Infusion Levothyroxine Sodium (Synthroid) 75 mcg PO DAILY@0600 [facility] Last Admin: 08/10/20 05:39 Dose: 75 mcg Documented by: Loperamide HCl (Imodium) 2 mg PO Q2H PRN PRN PRN Reason: diarrhea Losartan Potassium (Cozaar) 50 mg PO QHS [facility] Last Admin: 08/09/20 21:05 Dose: 50 mg Documented by: Morphine Sulfate () 2 - 4 mg IV Q2H PRN PRN PRN Reason: Pain Score 4-10/10 Last Admin: 08/03/20 16:49 Dose: 2 mg Documented by: Morphine Sulfate () 2 - 4 mg IV Q2H PRN PRN PRN Reason: Pain Score 4-10/10 Multivitamins (Multivitamin) 1 tablet PO DAILY@0800 [facility] Last Admin: 08/10/20 09:22 Dose: 1 tablet Documented by: Ondansetron HCl (Zofran) 4 mg IV Q8H PRN PRN PRN Reason: NAUSEA Oxycodone HCl (Oxyir) 5 - 10 mg PO Q4H PRN PRN PRN Reason: Pain Score 4-10/10 Last Admin: 08/09/20 22:59 Dose: 10 mg Documented by: Pantoprazole Sodium (Protonix) 40 mg PO BID [facility] Last Admin: 08/10/20 09:23 Dose: 40 mg Documented by: Polyethylene Glycol (Polyethylene Glycol 3350 17 Gm Packet) 17 gm PO DAILY [facility] Last Admin: 08/10/20 09:22 Dose: 17 gm Documented by: Senna/Docusate Sodium (Senokot-S, Sally-Colace) 2 tablet PO BID [facility] Last Admin: 08/10/20 09:23 Dose: 2 tablet Documented by: Sodium Chloride () 10 - 40 ml IV UD PRN PRN Reason: SALINE FLUSH Last Admin: 08/10/20 03:28 Dose: 10 ml Documented by: Zolpidem Tartrate (Ambien (Generic)) 5 mg PO QHS PRN PRN Reason: .INSOMNIA Last Admin: 08/09/20 22:59 Dose: 5 mg Documented by: Medical Necessity - Tobacco Use Smoking Status: Former smoker Tobacco Use: Non-smoker Assessment/Plan All Active Problems (Last Reviewed 03/31/20 @ 09:37 by Sylvie Cole) Pre-op examination (Acute) Abnormal nuclear stress test (Acute) 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 S/P left posterior hip total hip arthroplasty POD #8 2. Continue Pain Medications: Tylenol and oxycodone. 3. DVT Prophylaxis: Patient has been on Lovenox. We'll discontinue after this morning's dose. 4. PT/OT: Toe-touch weightbearing left lower extremity with walker. Continue with posterior hip dislocation precautions 5. acute on chronic anemia related to intraoperative blood loss 6. Encouraged Incentive Spirometry 7. Continue postoperative medical management per medicine 8 Disposition: We are still waiting on pre-CERT for patient to go to transitional care unit. Based on patient's instability patient is a continued risk for repeat dislocation. Patient has required to stand the hospital to prevent further redislocation and injury. Patient well need additional assistance and long term facility following the revision of her left hip. Patient will be n.p.o. after midnight tonight. Lovenox should be held after this morning's dose. Surgery is planned for early afternoon on August 11, 2020.
[2020-08-10 14:35] VITALS: BP 108/58; PULSE 89; RESP 16; TEMP 36.7; O2SAT 98
[2020-08-10 20:24] VITALS: BP 138/77; PULSE 85; RESP 16; TEMP 36.8; O2SAT 97
[2020-08-10] MEDS: Atorvastatin Calcium 20 MG Tablet PO (21:45)
[2020-08-10] MEDS: oxyCODONE 5 MG Tablet PO (21:46)
[2020-08-10] MEDS: Zolpidem Tartrate 5 MG Tablet PO (21:47)
[2020-08-10] MEDS: Losartan Potassium 50 MG Tablet PO (21:47)
[2020-08-10] MEDS: Menthol/Lanolin/Calamine/Znox 113 GM Tube 1 APPLIC TOPICAL (21:53)
[2020-08-11] VITALS (17 sets, daily range): BP systolic 84–139; BP diastolic 55–85; PULSE 67–81; RESP 16–118; TEMP 35.7–37.1; O2SAT 92–100; BMI 33.0
[2020-08-11 05:45] LABS: Absolute Lymphocyte Count 1.05 X10^3/uL (0.83-4.51); Absolute Neutrophil Count 3.5 X10^3/uL (2.0-7.7); Basophil# 0.02 X10^3/uL; Basophil% 0.3 % (0-1); Eosinophil# 0.45 X10^3/uL; Eosinophils% 7.7 % (0-5); Hematocrit 27.7 % (37-47); Hemoglobin 8.7 g/dL (12.0-15.0); Lymphocyte # 1.05 X10^3/ul (4.0); Lymphocyte % 18.1 % (19-41); Mean Corp Hgb Conc 31.4 g/dL (32-36); Mean Corpuscular Hgb 29.8 pg (27.0-32.0); Mean Corpuscular Volume 94.9 fL (81-99); Mean Platelet Vol. 8.4 fl (6.2-12.0); Monocyte# 0.71 X10^3/uL; Monocyte% 12.2 % (0-10); NRBC Flagged by Analyzer 0 % (0-5); Neutrophil # 3.52 X10^3/uL (2.7-7.7); Neutrophil % 60.7 % (47-70); Platelet Count 288 K/mm3 (150-450); RBC Distribution Width CV 13.6 % (11.6-14.6); RBC Distribution Width SD 46.5 fl (35.1-43.9); Red Blood Count 2.92 M/mm3 (4.2-5.4); White Blood Count 5.8 K/mm3 (4.4-11.0)
[2020-08-11] MEDS: Levothyroxine 75 MCG Tablet PO (05:47)
[2020-08-11] MEDS: Acetaminophen 500 MG Tablet 1000 MG PO ×2 (05:47→20:52)
[2020-08-11 05:59] LABS: Anion Gap 5 (5-15); BUN 13 mg/dL (7-18); BUN/Creat Ratio 24.6 RATIO (10-20); Chloride 99 mmol/L (98-107); Creatinine, Serum 0.53 mg/dL (0.55-1.02); EST Glomerular Filtration Rate 119 mL/min (>60); Est Glom Filt Rate - Afr Amer 144 mL/min (>60); Estimated Creatinine Clearance 41.33 ml/min; Glucose 87 mg/dL (74-106); Potassium 3.9 mmol/L (3.5-5.1); Sodium Level 131 mmol/L (136-145)
[2020-08-11] MEDS: Famotidine 20 MG Tablet PO (07:51)
[2020-08-11] MEDS: DULoxetine Hcl 60 MG Capsule PO (07:51)
[2020-08-11] MEDS: Ferrous Gluconate 324 MG Tablet PO (07:51)
[2020-08-11] MEDS: Pantoprazole Sodium 40 MG Tablet PO ×2 (07:51→20:53)
--- NOTE | 2020-08-11 08:42 | PCM.PN.HOSP ---
Subjective: Pt has no complaints. To OR today at 1300. Plan is for TCU at d/c per pt. Vitals/I&O's: Vital Signs Temp Pulse Resp BP Pulse Ox 98.2 F 72 16 127/58 H 94 08/11/20 02:38 08/11/20 02:38 08/11/20 02:38 08/11/20 02:38 08/11/20 02:38 Oxygen Flow Rate (L/min) 2 Oxygen Delivery Method Room Air Weight: 87.2 kg Body Mass Index (BMI) 33.0 Intake and Output for Last 24 Hours 08/09/20 08/10/20 08/11/20 23:59 23:59 23:59 Intake Total 800 / 800 840 / 840 300 / 300 Output Total 2250 / 2250 1500 / 1500 1200 / 1200 Balance -1450 / -1450 -660 / -660 -900 / -900 General: Alert, Oriented x3, Cooperative, No apparent distress, Well developed, Well nourished, - - Older WF lying in bed sleeping but awakens easily Lungs: Clear to auscultation, Normal air movement, No rhonchi, No wheeze, No rales Cardiovascular: Regular rate, Regular Rhythm, Normal S1, Normal S2, No murmurs, No Ectopic Activity, No rub noted, No Gallop Abdomen: Bowel Sounds Present, Soft, Non Tender, Non-Distended, Obese Extremities: No clubbing, No cyanosis, No edema, Capillary Refill Less than 3 Seconds, Peripheral Pulses Normal Neurological: Cranial nerves II-XII grossly intact, Neuro grossly intact Psych/Mental Status: Normal Affect, Appropriate Laboratory Results 08/11/20 05:30: WBC 5.8, RBC 2.92 L, Hgb 8.7 L, Hct 27.7 L, MCV 94.9, MCH 29.8, MCHC 31.4 L, RDW Std Deviation 46.5 H, RDW Coeff of Papo 13.6, Plt Count 288, MPV 8.4, Immature Gran % (Auto) 1.000 H, Neut % (Auto) 60.7, Lymph % (Auto) 18.1 L, [place] % (Auto) 12.2 H, Eos % (Auto) 7.7 H, Baso % (Auto) 0.3, Absolute Neuts (auto) 3.5, Absolute Lymphs (auto) 1.05, Nucleated RBC % 0 08/11/20 05:30: Sodium 131 L, Potassium 3.9, Chloride 99, Carbon Dioxide 27.0, Anion Gap 5, BUN 13, Creatinine 0.53 L, Estim Creat Clear Calc 41.33, Est GFR (MDRD) Af Amer 144, Est GFR (MDRD) Non-Af 119, BUN/Creatinine Ratio 24.6 H, Glucose 87, Calcium 8.0 L Current Medications Acetaminophen (Tylenol) 1,000 mg PO Q8 [facility] Last Admin: 08/11/20 05:47 Dose: 1,000 mg Documented by: Atorvastatin Calcium (Lipitor) 20 mg PO QHS [facility] Last Admin: 08/10/20 21:45 Dose: 20 mg Documented by: Calamine/Phenol (Menthol/Lanolin/Calamine/Znox 113 Gm Tube) 1 applic TOPICAL BID [facility]; Protocol Last Admin: 08/10/20 21:53 Dose: 1 applicatio Documented by: Calcium/Vitamin D (Os-Santiago 500mg + D) [facility] Last Admin: 08/11/20 07:52 Dose: Not Given Documented by: Diphenhydramine HCl (Benadryl) 25 mg PO DAILY PRN PRN PRN Reason: ALLERGIES Last Admin: 08/10/20 03:28 Dose: 25 mg Documented by: Duloxetine HCl (Cymbalta) 60 mg PO DAILY [facility] Last Admin: 08/11/20 07:51 Dose: 60 mg Documented by: Famotidine (Pepcid) 20 mg PO DAILY [facility] Last Admin: 08/11/20 07:51 Dose: 20 mg Documented by: Ferrous Gluconate (Ferrous Gluconate) 324 mg PO DAILY@0800 [facility] Last Admin: 08/11/20 07:51 Dose: 324 mg Documented by: Sodium Chloride () 250 mls @ 15 mls/hr IV .[id number] PRN PRN Reason: Saline Flush Sodium Chloride () 250 mls @ 15 mls/hr IV .[id number] PRN PRN Reason: Additional IVPB Infusion Levothyroxine Sodium (Synthroid) 75 mcg PO DAILY@0600 [facility] Last Admin: 08/11/20 05:47 Dose: 75 mcg Documented by: Loperamide HCl (Imodium) 2 mg PO Q2H PRN PRN PRN Reason: diarrhea Losartan Potassium (Cozaar) 50 mg PO QHS [facility] Last Admin: 08/10/20 21:47 Dose: 50 mg Documented by: Morphine Sulfate () 2 - 4 mg IV Q2H PRN PRN PRN Reason: Pain Score 4-10/10 Last Admin: 08/03/20 16:49 Dose: 2 mg Documented by: Morphine Sulfate () 2 - 4 mg IV Q2H PRN PRN PRN Reason: Pain Score 4-10/10 Multivitamins (Multivitamin) 1 tablet PO DAILY@0800 [facility] Last Admin: 08/11/20 07:52 Dose: Not Given Documented by: Nutritional Formula (Lactose Free) (Ensure Enlive 120 Ml Liquid) 120 ml PO 4X/DAY [facility] Last Admin: 08/11/20 07:54 Dose: Not Given Documented by: Ondansetron HCl (Zofran) 4 mg IV Q8H PRN PRN PRN Reason: NAUSEA Oxycodone HCl (Oxyir) 5 - 10 mg PO Q4H PRN PRN PRN Reason: Pain Score 4-10/10 Last Admin: 08/10/20 21:46 Dose: 10 mg Documented by: Pantoprazole Sodium (Protonix) 40 mg PO BID [facility] Last Admin: 08/11/20 07:51 Dose: 40 mg Documented by: Polyethylene Glycol (Polyethylene Glycol 3350 17 Gm Packet) 17 gm PO DAILY [facility] Last Admin: 08/11/20 07:52 Dose: Not Given Documented by: Senna/Docusate Sodium (Senokot-S, Sally-Colace) 2 tablet PO BID [facility] Last Admin: 08/11/20 07:53 Dose: Not Given Documented by: Sodium Chloride () 10 - 40 ml IV UD PRN PRN Reason: SALINE FLUSH Last Admin: 08/10/20 03:28 Dose: 10 ml Documented by: Zolpidem Tartrate (Ambien (Generic)) 5 mg PO QHS PRN PRN Reason: .INSOMNIA Last Admin: 08/10/20 21:47 Dose: 5 mg Documented by: Medical Necessity - Tobacco Use Smoking Status: Former smoker Tobacco Use: Non-smoker Assessment/Plan All Active Problems (Last Reviewed 03/31/20 @ 09:37 by Sylvie Cole) Pre-op examination (Acute) Abnormal nuclear stress test (Acute) 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) Status post right hip replacement (Resolved) L BAM POD 5 s/p post dislocation -pain is controlled -moving bowels -PT/OT -TTWB status for now per ortho -went to OR 08/06 for reduction of dislocation -abduction pillow while in bed -strict hip precautions with no flexion past 70 degrees -plan is for revision of hip on 08/11--> tomorrow Acute on Chronic Anemia in the post-operative period -takes Fe at baseline -did receive 2 u PRBC here post op -hgb remains stable-->8.7 today -repeat am 08/12 CAD -EZKEIEL to prox diagonal 07/16/2019 -continue ASA/Plavix GERD -continue PPI Hypothyroidism -continue Synthroid Hyponatremia -mild and relatively stable -baseline Na appears to be 131-137 range Constipation -improved -has stool softener ordered -miralax daily -this is evidently a chronic issue HTN/HPL -continue Losartan -continue Crestor Anxiety/Depression -continue Cymbalta HELENA -pt non-compliant with mask at baseline DVT Prophylaxis -Lovenox daily Dispo -Rehab vs TCU once able per ortho -revision of L hip this afternoon Inpatient E&M: 19143 Subs Hosp L2
--- NOTE | 2020-08-11 12:10 | CASEMGMT ---
Social Work Note Pt is scheduled for surgery today. TCU will submit for pre-cert after pt has surgery and new PT/OT notes are available. AMAURY spoke with Elin in TCU and confirmed that she will submit for new pre-cert once pt has surgery and new PT/OT notes. Plan: TCU pending pre-cert Deja Fine THERAPY DIRECTOR, RECORD PRESS SUPERVISOR
[2020-08-11] MEDS: Lactated Ringers 1,000 ML 75 ML IV (12:45)
[2020-08-11] MEDS: Cefazolin 2 GM in 0.9% Normal Saline 100 ML IV (12:58)
[2020-08-11] MEDS: Heparin 10,000 UNITS/10 ML Vial 10000 UNITS (13:44)
--- NOTE | 2020-08-11 16:12 | PCM.OPRPT ---
Report of Operation Date of Procedure: 08/11/20 Pre-Operative Diagnosis: Left hip instability Post-Operative Diagnosis: Left hip instability status post total joint replacement. Left hip femoral subsidence Surgery/Procedure Performed:: Left revision posterior total hip replacement entire femoral and acetabular components Description of Surgical Findings:: Stable hip. Equal leg lengths. Upon getting the joint and trying to remove the femoral head it was noted that the stem was grossly loose. As we examined the calcar from the calcar had been eroded. We again reviewed the postreduction films. It was noted there was evidence of subtle subsidence of the femoral stem consistent with the intraoperative findings. student success coach: Daisy Dorsey NP Type of Anesthesia:: Spinal Anesthesiologist: Kt Washburn Special Medications: 2 g Ancef, 1 g TXA at incision, 1 g TXA closure, 10 mg Decadron, joint cocktail (5 mg Duramorph, 30 mL of 0.5% Ropivicaine, 1000 units of epinephrine, 30 mg of Toradol) Estimated Blood Loss (mL): 500 mL Fluids Replaced: 2200 mL crystalloid, 2 units packed red blood cells Description of Procedure: Findings: Adequate reduction with stability of the hip and equal leg lengths measured intraoperatively. Components used: 1. Chi holiness modular femoral stem, 155 mm x 23 mm conical stem, 27 mm: Body 2. Chi Trident 262 mm acetabular shell 4 screws 3. Chi X3 polyethylene liner, 48G 4. [place] cobalt chromium 28 mm, +8 mm neck femoral head 5. Chi MDM liner Brief history operative indications: 74-year-old female with history of severe femoral head erosion, left hip shortening and acetabular erosion with dysplastic acetabulum head hip replacement 10 days ago. Subsequently had dislocation. She was reduced with closed reduction. She was noted to have significant instability with minimal internal rotation. Based on the risk of further falls and what we felt was unacceptable risk of further dislocations we elected to revise the hip. Patient remained in the hospital during this time. She was watched medically. She did have significant postoperative anemia and has already received 2 units packed packed red blood cells. She received 2 additional packed red blood cells planned. Risks and benefits were discussed with the patient which included but were not limited to blood loss, DVTs, PEs, infection, neurovascular damage, and dislocation. In light of all this patient did agree to proceed with a revision of the left total hip arthroplasty. Procedure: On the date of procedure the patient's L hip was marked in the preoperative area. Patient was then taken back to the operating room where anesthesia assumed control of the C-spine and airway and administered anesthetic. Patient was transferred to the operating table and placed in the lateral decubitus position with the affected hip up. The patient was secured in the bed with the lateral positioners and leg lengths were checked. The L lower extremity was then prepped out in a sterile fashion using chlorhexidine while the surgeon scrubbed. Upon reentering the room the L lower extremity was draped in the standard orthopedic fashion and the incision was marked. A timeout was called and everyone agreed upon the side, the site, the procedure be performed, antibiotics given, and patient's identity. At this time incision was made through skin, subcutaneous tissue, and fat down to fascia. The fascia was then incised and a Charley retractor was placed. At this point the previous posterior repair had been disrupted. We had access to the joint. Patient had a large serosanguineous seroma this was evacuated. We then dislocated the hip. At this point we noted that the femoral stem was grossly loose. We examined the calcar. There was no distal split however there was some flaking of the proximal calcar. Because of this we elected to use a modular diaphyseal fitting stem. Once this was removed and debrided we went to the acetabulum. Screws were removed from the acetabular augment. Liner was removed from the acetabulum. She was removed from the acetabular component. Acetabular component was then removed using a Dara. At this time the wound was closed in a top normal saline 6 L under low pressure lavage. Once this was done we commenced to proceed with revision of the hip. Attention was then turned to the femur where the proximal femur was appropriately exposed using a pride retractor. We sequentially reamed the femur to 23 mm planning for 855 mm stem. The stem was opened and impacted into place. We reamed for the cone body 27 mm based on comparisons to the previous femoral size that was in. Our attention was then directed to the acetabulum and the anterior retractor was placed and a Gelpi was used to retract the posterior capsule superiorly. The acetabulum was then sequentially reamed to 60 millimeters. Based on the patient's bone quality we elected to undersized the cup by 2 mm. A 62 mm trial cup was impacted into place we did get a friction fit. This was removed. Wound was cultured out normal saline. At this time a and 62 mm Chi Trident 2 cup was opened and impacted into place. At this time for bone screws were placed in the safe zone of the acetabular component. Once it was securely fastened down the MDM liner was placed and security was verified. The proximal femur was again exposed and the trial cone body was placed. 27 mm trial Body was used. It was impacted in the appropriate version and tightened down. A plus 8 femoral head was used to trial. Hip was reduced and was stable with 90 degrees flexion 45 internal rotation with 45 degrees overall combined anteversion. Hip was again dislocated. Trial components were removed. At this time the final components were verified and opened. The wound was copiously irrigated out with normal saline. The acetabulum was checked for any residual debris. The final components were placed and impacted. Traction and external rotation were again used to reduce the hip. After adequate reduction the hip remained stable with appropriate leg lengths. The wound was then copiously irrigated with normal saline once more, and hemostasis was obtained. The posterior capsule and an external rotators to soft tissue sleeve were repaired through drill holes to the greater trochanter . Closure was then done using #1 Vicryl to close the fascia. A 2-0 Vicryl interrupted sutures were used to close the subcutaneous skin. Skin ursula were used for final skin closure. A sterile dressing was placed. Patient was awakened by anesthesia and transferred to the [facility]. Patient was then transferred to the PACU for recovery. Postoperative plan: Patient will get 24 hours postop antibiotics. Patient will get in-house physical therapy and will be toe-touch weightbearing for 2 weeks followed by partial weightbearing for 4 weeks with goal of full weightbearing at 6 weeks. Patient will follow up in office in 2 weeks for a wound check and x-rays. 3 months of strict posterior hip precautions. During the course of the procedure the physician irrigator overhead (PE) played a vital role. Their intimate knowledge of my steps in the procedure aided in safe and expedient completion of the procedure. The PE played a vital rolls in positioning particularly in obtaining the appropriate lateral decubitus position. The PE was also vital in the retraction of soft tissues during the exposure and especially the femoral work as this is a vital part of the procedure to prevent complications and fractures. The PE was also vital and protecting soft tissues during times of bony cuts and reaming. He also played a vital role in closure with my direct supervision. The PE was also important during reduction and dislocation of the joint and trials intraoperatively. - Complications No intraoperative complications - Admit VTE Documentation VTE Present on Admission: No VTE Mechan Device Prophylaxis: SCD's, Thigh High RILEY Hose VTE Pharm Prophylaxis ordered?: Yes
--- NOTE | 2020-08-11 17:00 | RAD_ITS ---
STUDY: X-RAY - PELVIS AND LEFT HIP REASON FOR EXAM: Female, 74 years old. POST OP LEFT HIP TECHNIQUE: 2 views of the pelvis and hip. COMPARISON: None. FINDINGS: The liver is bilateral iliac wings, sacroiliac joints, and sacrum. Normal bilateral superior and inferior pubic rami. Normal pubic symphysis. Normal bilateral ischial tuberosities. Bilateral hip prosthesis are noted in satisfactory alignment. Postsurgical changes are noted within the soft tissue around the left hip. RAD/Hip Min 2 Views (Portable) IMPRESSION: Status post left hip revision with postsurgical changes. Electronically Signed: Osvaldo Solorio DO at 18:08 EDT Tel [phone], Service support ,
[2020-08-11] MEDS: 0.9% Saline Lock 10 ML Syringe IV ×2 (17:18→20:46)
[2020-08-11 17:57] LABS: Hematocrit 34.2 % (37-47); Hemoglobin 10.9 g/dL (12.0-15.0); Mean Corp Hgb Conc 31.9 g/dL (32-36); Mean Corpuscular Hgb 29.7 pg (27.0-32.0); Mean Corpuscular Volume 93.2 fL (81-99); Mean Platelet Vol. 8.3 fl (6.2-12.0); Platelet Count 262 K/mm3 (150-450); RBC Distribution Width CV 14.1 % (11.6-14.6); RBC Distribution Width SD 47.6 fl (35.1-43.9); Red Blood Count 3.67 M/mm3 (4.2-5.4); White Blood Count 15.4 K/mm3 (4.4-11.0)
[2020-08-11] MEDS: oxyCODONE 5 MG Tablet PO ×2 (18:56→22:58)
[2020-08-11] MEDS: Cefazolin 1 GM/50 ML BAG IV (20:49)
[2020-08-11] MEDS: Menthol/Lanolin/Calamine/Znox 113 GM Tube 1 APPLIC TOPICAL (20:51)
[2020-08-11] MEDS: Senna/Docusate Sodium 1 Tablet 2 TABLET PO (20:52)
[2020-08-11] MEDS: Atorvastatin Calcium 20 MG Tablet PO (20:52)
[2020-08-11] MEDS: Losartan Potassium 50 MG Tablet PO (20:53)
[2020-08-11] MEDS: Zolpidem Tartrate 5 MG Tablet PO (23:30)
[2020-08-12] MEDS: oxyCODONE 5 MG Tablet PO ×5 (03:03→22:21)
[2020-08-12] MEDS: Cefazolin 1 GM/50 ML BAG IV (05:24)
[2020-08-12] MEDS: Levothyroxine 75 MCG Tablet PO (05:25)
[2020-08-12] MEDS: Acetaminophen 500 MG Tablet 1000 MG PO ×3 (05:25→22:22)
[2020-08-12] MEDS: Enoxaparin 40 MG/0.4 ML Syringe SC (05:27)
[2020-08-12 06:23] VITALS: BP 95/48; PULSE 87; RESP 18; TEMP 36.8; O2SAT 93
[2020-08-12 07:27] LABS: Hematocrit 25.6 % (37-47); Hemoglobin 8.2 g/dL (12.0-15.0); Mean Corpuscular Hgb 29.5 pg (27.0-32.0); Mean Corpuscular Volume 92.1 fL (81-99); Mean Platelet Vol. 8.5 fl (6.2-12.0); Platelet Count 249 K/mm3 (150-450); RBC Distribution Width CV 14.5 % (11.6-14.6); RBC Distribution Width SD 48.6 fl (35.1-43.9); Red Blood Count 2.78 M/mm3 (4.2-5.4); White Blood Count 8.1 K/mm3 (4.4-11.0)
[2020-08-12 07:57] LABS: Anion Gap 6 (5-15); BUN 15 mg/dL (7-18); BUN/Creat Ratio 24.4 RATIO (10-20); Calcium,Total 7.5 mg/dL (8.5-10.1); Chloride 98 mmol/L (98-107); Creatinine, Serum 0.61 mg/dL (0.55-1.02); EST Glomerular Filtration Rate 100 mL/min (>60); Est Glom Filt Rate - Afr Amer 121 mL/min (>60); Estimated Creatinine Clearance 41.33 ml/min; Glucose 98 mg/dL (74-106); Potassium 3.6 mmol/L (3.5-5.1); Sodium Level 128 mmol/L (136-145)
--- NOTE | 2020-08-12 08:01 | PN.ORTHO_ITS ---
Subjective: The patient was sitting in bed eating breakfast upon examination. Patient denies any chest pain, shortness of breath, dizziness, lightheadedness, nausea or vomiting, or calf pain. Pain is controlled on medications. No adverse overnight events. This is the most comfortable the patient has been upon my exam since the initial surgery. Patient did have some low blood pressure overnight but she is currently asymptomatic. No tachycardia. She did receive 2 units of packed red blood cells with surgery. We are still waiting on pre-CERT to go to the transitional care unit at [facility]. Case management is involved. Objective: Vital signs stable and afebrile. Patient is able to plantarflex and dorsiflex actively. Sensation is intact to light touch to saphenous, sural, superficial and deep peroneal, and tibial distribution. Dressings are clean dry and intact. Negative Homans bilaterally, negative signs and symptoms of DVT. - Physical Exam Vitals/I&O's: Vital Signs Temp Pulse Resp BP Pulse Ox 98.3 F 87 18 95/48 L 93 08/12/20 06:23 08/12/20 06:23 08/12/20 06:23 08/12/20 06:23 08/12/20 06:23 Oxygen Flow Rate (L/min) 2 Oxygen Delivery Method Room Air Weight: 87.2 kg Body Mass Index (BMI) 33.0 Intake and Output for Last 24 Hours 08/10/20 08/11/20 08/12/20 23:59 23:59 23:59 Intake Total 840 / 1540 1960.75 / 1960.75 1811.25 / 1811.25 Output Total 1500 / 1500 1900 / 1900 500 / 500 Balance -660 / 40 60.75 / 60.75 1311.25 / 1311.25 General: Alert, Oriented x3, Cooperative, No apparent distress Laboratory Results 08/11/20 11:50: Blood Type O POSITIVE, Antibody Screen NEGATIVE, Crossmatch See Detail 08/11/20 17:49: WBC 15.4 H, RBC 3.67 L, Hgb 10.9 L, Hct 34.2 L, MCV 93.2, MCH 29.7, MCHC 31.9 L, RDW Std Deviation 47.6 H, RDW Coeff of Papo 14.1, Plt Count 262, MPV 8.3 08/12/20 07:10: WBC 8.1, RBC 2.78 L, Hgb 8.2 L, Hct 25.6 L, MCV 92.1, MCH 29.5, MCHC 32.0, RDW Std Deviation 48.6 H, RDW Coeff of Papo 14.5, Plt Count 249, MPV 8.5 08/12/20 07:10: Sodium 128 L, Potassium 3.6, Chloride 98, Carbon Dioxide 24.0, Anion Gap 6, BUN 15, Creatinine 0.61, Estim Creat Clear Calc 41.33, Est GFR (MDRD) Af Amer 121, Est GFR (MDRD) Non-Af 100, BUN/Creatinine Ratio 24.4 H, Glucose 98, Calcium 7.5 L Current Medications Acetaminophen (Tylenol) 1,000 mg PO Q8 [facility] Last Admin: 08/12/20 05:25 Dose: 1,000 mg Documented by: Atorvastatin Calcium (Lipitor) 20 mg PO QHS [facility] Last Admin: 08/11/20 20:52 Dose: 20 mg Documented by: Calamine/Phenol (Menthol/Lanolin/Calamine/Znox 113 Gm Tube) 1 applic TOPICAL BID [facility]; Protocol Last Admin: 08/11/20 20:51 Dose: 1 applicatio Documented by: Calcium/Vitamin D (Os-Santiago 500mg + D) 2 tablet PO DAILYCM [facility] Last Admin: 08/11/20 07:52 Dose: Not Given Documented by: Diphenhydramine HCl (Benadryl) 25 mg PO DAILY PRN PRN PRN Reason: ALLERGIES Last Admin: 08/10/20 03:28 Dose: 25 mg Documented by: Duloxetine HCl (Cymbalta) 60 mg PO DAILY [facility] Last Admin: 08/11/20 07:51 Dose: 60 mg Documented by: Enoxaparin Sodium (Enoxaparin 40 Mg/0.4 Ml Syringe) 40 mg SC DAILY@0600 [facility] Last Admin: 08/12/20 05:27 Dose: 40 mg Documented by: Enteral Nutritional Formula (Ensure Surgery 237 Ml Liquid) 237 ml PO TIDCM [facility] Last Admin: 08/11/20 16:46 Dose: Not Given Documented by: Famotidine (Pepcid) 20 mg PO DAILY [facility] Last Admin: 08/11/20 07:51 Dose: 20 mg Documented by: Ferrous Gluconate (Ferrous Gluconate) 324 mg PO DAILY@0800 [facility] Last Admin: 08/11/20 07:51 Dose: 324 mg Documented by: Sodium Chloride () 250 mls @ 15 mls/hr IV .[id number] PRN PRN Reason: Saline Flush Last Infusion: 08/11/20 21:09 Dose: 15 mls/hr Documented by: Sodium Chloride () 250 mls @ 15 mls/hr IV .[id number] PRN PRN Reason: Additional IVPB Infusion Levothyroxine Sodium (Synthroid) 75 mcg PO DAILY@0600 [facility] Last Admin: 08/12/20 05:25 Dose: 75 mcg Documented by: Loperamide HCl (Imodium) 2 mg PO Q2H PRN PRN PRN Reason: diarrhea Losartan Potassium (Cozaar) 50 mg PO QHS [facility] Last Admin: 08/11/20 20:53 Dose: 50 mg Documented by: Morphine Sulfate () 2 - 4 mg IV Q2H PRN PRN PRN Reason: Pain Score 4-10/10 Last Admin: 08/03/20 16:49 Dose: 2 mg Documented by: Morphine Sulfate () 2 - 4 mg IV Q2H PRN PRN PRN Reason: Pain Score 4-10/10 Multivitamins (Multivitamin) 1 tablet PO DAILY@0800 [facility] Last Admin: 08/11/20 07:52 Dose: Not Given Documented by: Nutritional Formula (Lactose Free) (Ensure Enlive 120 Ml Liquid) 120 ml PO 4X/DAY [facility] Last Admin: 08/11/20 20:56 Dose: 120 ml Documented by: Ondansetron HCl (Zofran) 4 mg IV Q8H PRN PRN PRN Reason: NAUSEA Oxycodone HCl (Oxyir) 5 - 10 mg PO Q4H PRN PRN PRN Reason: Pain Score 4-10/10 Last Admin: 08/12/20 03:03 Dose: 10 mg Documented by: Pantoprazole Sodium (Protonix) 40 mg PO BID [facility] Last Admin: 08/11/20 20:53 Dose: 40 mg Documented by: Polyethylene Glycol (Polyethylene Glycol 3350 17 Gm Packet) 17 gm PO DAILY [facility] Last Admin: 08/11/20 07:52 Dose: Not Given Documented by: Senna/Docusate Sodium (Senokot-S, Sally-Colace) 2 tablet PO BID [facility] Last Admin: 08/11/20 20:52 Dose: 2 tablet Documented by: Sodium Chloride () 10 - 40 ml IV UD PRN PRN Reason: SALINE FLUSH Last Admin: 08/11/20 20:46 Dose: 10 ml Documented by: Zolpidem Tartrate (Ambien (Generic)) 5 mg PO QHS PRN PRN Reason: .INSOMNIA Last Admin: 08/11/20 23:30 Dose: 5 mg Documented by: Medical Necessity - Tobacco Use Smoking Status: Former smoker Tobacco Use: Non-smoker Assessment/Plan All Active Problems (Last Reviewed 03/31/20 @ 09:37 by Sylvie Cole) Pre-op examination (Acute) Abnormal nuclear stress test (Acute) 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 S/P left revision posterior total hip replacement entire femoral and acetabular component secondary to instability and femoral subsidence POD #10, patient initially went original left posterior robotic assisted total hip replacement on August 02, 2020 but had instability and dislocation. 2. Continue Pain Medications: Tylenol and oxycodone. 3. DVT Prophylaxis: Patient has been on Lovenox. 4. PT/OT: Toe-touch weightbearing left lower extremity with walker. Continue with posterior hip dislocation precautions for 3 months postoperatively. Abduction pillow while in bed 5. acute on chronic anemia related to intraoperative blood loss: Currently 8.2/25.6. Patient did receive 2 units of packed red blood cells on August 11, 2020. She is currently asymptomatic. Did have some low blood pressure overnight. 6. Encouraged Incentive Spirometry 7. Continue postoperative medical management per medicine 8 Disposition: Due to patient's comorbidities and restrictions, patient will require care home facility upon discharge. She will be toe-touch weightbearing on the left lower extremity for 2 weeks postoperatively. She will continue with posterior hip dislocation precautions for 3 months. We are currently still waiting on pre-CERT from insurance for patient to go to the transitional care unit. Physical therapy will reassess today.
[2020-08-12] MEDS: Pantoprazole Sodium 40 MG Tablet PO ×2 (09:05→22:21)
[2020-08-12] MEDS: Calcium Carb/Vitamin D 1 TABLET Tablet 2 TABLET PO (09:05)
[2020-08-12] MEDS: Senna/Docusate Sodium 1 Tablet 2 TABLET PO ×2 (09:05→22:21)
[2020-08-12] MEDS: Famotidine 20 MG Tablet PO (09:06)
[2020-08-12] MEDS: Multivitamins,Therapeutic Tablet 1 TABLET PO (09:06)
[2020-08-12] MEDS: DULoxetine Hcl 60 MG Capsule PO (09:06)
[2020-08-12] MEDS: Ferrous Gluconate 324 MG Tablet PO (09:07)
[2020-08-12] MEDS: Menthol/Lanolin/Calamine/Znox 113 GM Tube 1 APPLIC TOPICAL ×2 (09:12→22:21)
--- NOTE | 2020-08-12 13:14 | PN_ITS ---
Subjective: Feeling ok. Was up to chair and got a bit lightheaded. Tired today. Vitals/I&O's: Vital Signs Temp Pulse Resp BP Pulse Ox 97.9 F 93 18 102/64 92 08/12/20 09:00 08/12/20 09:00 08/12/20 09:00 08/12/20 09:00 08/12/20 09:00 Oxygen Flow Rate (L/min) 2 Oxygen Delivery Method Room Air Weight: 87.2 kg Body Mass Index (BMI) 33.0 Intake and Output for Last 24 Hours 08/10/20 08/11/20 08/12/20 23:59 23:59 23:59 Intake Total 840 / 1540 1960.75 / 1960.75 2171.25 / 2171.25 Output Total 1500 / 1500 1900 / 1900 620 / 620 Balance -660 / 40 60.75 / 60.75 1551.25 / 1551.25 General: Alert, Oriented x3, Cooperative, No apparent distress, Well developed, Well nourished, - - lying in bed HEENT: Atraumatic, Normocephalic Oral: Moist Mucosa, No Gingival or Mucosal Lesions/ Ulcerations Lungs: Clear to auscultation, Normal air movement, No rhonchi, No wheeze, No rales Cardiovascular: Regular rate, Regular Rhythm, Normal S1, Normal S2, No murmurs, No Ectopic Activity, No rub noted, No Gallop Abdomen: Bowel Sounds Present, Soft, Non Tender, Non-Distended, No Hepato- splenomegaly, No hernias noted Extremities: No clubbing, No cyanosis, No edema, Capillary Refill Less than 3 Seconds, Peripheral Pulses Normal Neurological: Cranial nerves II-XII grossly intact, Neuro grossly intact Psych/Mental Status: Normal Affect, Appropriate Laboratory Results 08/11/20 11:50: Blood Type O POSITIVE, Antibody Screen NEGATIVE, Crossmatch See Detail 08/11/20 17:49: WBC 15.4 H, RBC 3.67 L, Hgb 10.9 L, Hct 34.2 L, MCV 93.2, MCH 29.7, MCHC 31.9 L, RDW Std Deviation 47.6 H, RDW Coeff of Papo 14.1, Plt Count 262, MPV 8.3 08/12/20 07:10: WBC 8.1, RBC 2.78 L, Hgb 8.2 L, Hct 25.6 L, MCV 92.1, MCH 29.5, MCHC 32.0, RDW Std Deviation 48.6 H, RDW Coeff of Papo 14.5, Plt Count 249, MPV 8.5 08/12/20 07:10: Sodium 128 L, Potassium 3.6, Chloride 98, Carbon Dioxide 24.0, Anion Gap 6, BUN 15, Creatinine 0.61, Estim Creat Clear Calc 41.33, Est GFR (M DRD) Af Amer 121, Est GFR (MDRD) Non-Af 100, BUN/Creatinine Ratio 24.4 H, Glucose 98, Calcium 7.5 L Current Medications Acetaminophen (Tylenol) 1,000 mg PO Q8 [facility] Last Admin: 08/12/20 05:25 Dose: 1,000 mg Documented by: Atorvastatin Calcium (Lipitor) 20 mg PO QHS [facility] Last Admin: 08/11/20 20:52 Dose: 20 mg Documented by: Calamine/Phenol (Menthol/Lanolin/Calamine/Znox 113 Gm Tube) 1 applic TOPICAL BID [facility]; Protocol Last Admin: 08/12/20 09:12 Dose: 1 applicatio Documented by: Calcium/Vitamin D (Os-Santiago 500mg + D) 2 tablet PO DAILYCM [facility] Last Admin: 08/12/20 09:05 Dose: 2 tablet Documented by: Diphenhydramine HCl (Benadryl) 25 mg PO DAILY PRN PRN PRN Reason: ALLERGIES Last Admin: 08/10/20 03:28 Dose: 25 mg Documented by: Duloxetine HCl (Cymbalta) 60 mg PO DAILY [facility] Last Admin: 08/12/20 09:06 Dose: 60 mg Documented by: Enoxaparin Sodium (Enoxaparin 40 Mg/0.4 Ml Syringe) 40 mg SC DAILY@0600 [facility] Last Admin: 08/12/20 05:27 Dose: 40 mg Documented by: Enteral Nutritional Formula (Ensure Surgery 237 Ml Liquid) 237 ml PO TIDCM [facility] Last Admin: 08/12/20 11:01 Dose: Not Given Documented by: Famotidine (Pepcid) 20 mg PO DAILY [facility] Last Admin: 08/12/20 09:06 Dose: 20 mg Documented by: Ferrous Gluconate (Ferrous Gluconate) 324 mg PO DAILY@0800 [facility] Last Admin: 08/12/20 09:07 Dose: 324 mg Documented by: Sodium Chloride () 250 mls @ 15 mls/hr IV .[id number] PRN PRN Reason: Saline Flush Last Infusion: 08/11/20 21:09 Dose: 15 mls/hr Documented by: Sodium Chloride () 250 mls @ 15 mls/hr IV .[id number] PRN PRN Reason: Additional IVPB Infusion Levothyroxine Sodium (Synthroid) 75 mcg PO DAILY@0600 [facility] Last Admin: 08/12/20 05:25 Dose: 75 mcg Documented by: Loperamide HCl (Imodium) 2 mg PO Q2H PRN PRN PRN Reason: diarrhea Losartan Potassium (Cozaar) 50 mg PO QHS [facility] Last Admin: 08/11/20 20:53 Dose: 50 mg Documented by: Morphine Sulfate () 2 - 4 mg IV Q2H PRN PRN PRN Reason: Pain Score 4-10/10 Last Admin: 08/03/20 16:49 Dose: 2 mg Documented by: Morphine Sulfate () 2 - 4 mg IV Q2H PRN PRN PRN Reason: Pain Score 4-10/10 Multivitamins (Multivitamin) 1 tablet PO DAILY@0800 [facility] Last Admin: 08/12/20 09:06 Dose: 1 tablet Documented by: Nutritional Formula (Lactose Free) (Ensure Enlive 120 Ml Liquid) 120 ml PO 4X/DAY [facility] Last Admin: 08/12/20 09:09 Dose: Not Given Documented by: Ondansetron HCl (Zofran) 4 mg IV Q8H PRN PRN PRN Reason: NAUSEA Oxycodone HCl (Oxyir) 5 - 10 mg PO Q4H PRN PRN PRN Reason: Pain Score 4-10/10 Last Admin: 08/12/20 09:09 Dose: 10 mg Documented by: Pantoprazole Sodium (Protonix) 40 mg PO BID [facility] Last Admin: 08/12/20 09:05 Dose: 40 mg Documented by: Polyethylene Glycol (Polyethylene Glycol 3350 17 Gm Packet) 17 gm PO DAILY [facility] Last Admin: 08/12/20 09:06 Dose: Not Given Documented by: Senna/Docusate Sodium (Senokot-S, Sally-Colace) 2 tablet PO BID [facility] Last Admin: 08/12/20 09:05 Dose: 2 tablet Documented by: Sodium Chloride () 10 - 40 ml IV UD PRN PRN Reason: SALINE FLUSH Last Admin: 08/11/20 20:46 Dose: 10 ml Documented by: Zolpidem Tartrate (Ambien (Generic)) 5 mg PO QHS PRN PRN Reason: .INSOMNIA Last Admin: 08/11/20 23:30 Dose: 5 mg Documented by: Medical Necessity - Tobacco Use Smoking Status: Former smoker Tobacco Use: Non-smoker Assessment/Plan All Active Problems (Last Reviewed 03/31/20 @ 09:37 by Sylvie Cole) Pre-op examination (Acute) Abnormal nuclear stress test (Acute) 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) Status post right hip replacement (Resolved) L BAM s/p post dislocation and revision -pain is controlled -moving bowels -PT/OT -TTWB status on L for 2 weeks -went to OR 08/06 for reduction of dislocation -revision on 08/11 -abduction pillow while in bed only -post hip precautions Acute on Chronic Anemia in the post-operative period -takes Fe at baseline -did receive 2 u PRBC here post op -hgb remains stable-->8.2 CAD -EZEKIEL to prox diagonal 07/16/2019 -continue ASA/Plavix GERD -continue PPI Hypothyroidism -continue Synthroid Hyponatremia -down a bit today but suspect she got quite a bit of volume in the OR -repeat in am -baseline Na appears to be 131-137 range Constipation -improved -has stool softener ordered -miralax daily -this is evidently a chronic issue HTN/HPL -continue Losartan -continue Crestor Anxiety/Depression -continue Cymbalta HELENA -pt non-compliant with mask at baseline DVT Prophylaxis -Lovenox daily Dispo -Medically stable for TCU once pre-cert obtained and ok per ortho Inpatient E&M: 27671 Subs Hosp L2
[2020-08-12 14:05] VITALS: BP 128/54; PULSE 85; RESP 18; TEMP 37.1; O2SAT 96
[2020-08-12 20:05] VITALS: BP 123/53; PULSE 91; RESP 16; TEMP 36.9; O2SAT 99
[2020-08-12] MEDS: Losartan Potassium 50 MG Tablet PO (22:21)
[2020-08-12] MEDS: Zolpidem Tartrate 5 MG Tablet PO (22:21)
[2020-08-12] MEDS: Atorvastatin Calcium 20 MG Tablet PO (22:21)
[2020-08-13 02:35] VITALS: BP 118/62; PULSE 87; RESP 16; TEMP 37.4; O2SAT 93
[2020-08-13] MEDS: Acetaminophen 500 MG Tablet 1000 MG PO ×2 (05:15→22:51)
[2020-08-13] MEDS: oxyCODONE 5 MG Tablet PO ×2 (05:15→19:22)
[2020-08-13] MEDS: Levothyroxine 75 MCG Tablet PO (05:16)
[2020-08-13] MEDS: Enoxaparin 40 MG/0.4 ML Syringe SC (05:16)
[2020-08-13 05:18] LABS: Hematocrit 24.2 % (37-47); Hemoglobin 7.8 g/dL (12.0-15.0); Mean Corp Hgb Conc 32.2 g/dL (32-36); Mean Corpuscular Hgb 29.5 pg (27.0-32.0); Mean Corpuscular Volume 91.7 fL (81-99); Mean Platelet Vol. 8.5 fl (6.2-12.0); Platelet Count 273 K/mm3 (150-450); RBC Distribution Width CV 14.5 % (11.6-14.6); RBC Distribution Width SD 47.4 fl (35.1-43.9); Red Blood Count 2.64 M/mm3 (4.2-5.4)
[2020-08-13 05:37] LABS: Anion Gap 6 (5-15); BUN 13 mg/dL (7-18); BUN/Creat Ratio 24.3 RATIO (10-20); Calcium,Total 7.8 mg/dL (8.5-10.1); Chloride 96 mmol/L (98-107); Creatinine, Serum 0.54 mg/dL (0.55-1.02); EST Glomerular Filtration Rate 117 mL/min (>60); Est Glom Filt Rate - Afr Amer 142 mL/min (>60); Estimated Creatinine Clearance 41.33 ml/min; Glucose 107 mg/dL (74-106); Potassium 3.9 mmol/L (3.5-5.1); Sodium Level 128 mmol/L (136-145)
[2020-08-13 08:55] VITALS: BP 129/62; PULSE 81; RESP 18; TEMP 36.5; O2SAT 92
[2020-08-13] MEDS: Calcium Carb/Vitamin D 1 TABLET Tablet 2 TABLET PO (08:57)
[2020-08-13] MEDS: Pantoprazole Sodium 40 MG Tablet PO ×2 (08:57→22:51)
[2020-08-13] MEDS: Famotidine 20 MG Tablet PO (08:58)
[2020-08-13] MEDS: DULoxetine Hcl 60 MG Capsule PO (08:58)
[2020-08-13] MEDS: Senna/Docusate Sodium 1 Tablet 2 TABLET PO ×2 (08:58→22:51)
[2020-08-13] MEDS: Menthol/Lanolin/Calamine/Znox 113 GM Tube 1 APPLIC TOPICAL ×2 (08:58→22:51)
[2020-08-13] MEDS: Multivitamins,Therapeutic Tablet 1 TABLET PO (08:59)
[2020-08-13] MEDS: Ferrous Gluconate 324 MG Tablet PO (08:59)
[2020-08-13] MEDS: DiphenhydrAMINE 25 MG Capsule PO (10:10)
--- NOTE | 2020-08-13 12:25 | PCM.PN.HOSP ---
Subjective: Pt c/o constipation and would like and enema today. Fleets okay. Vitals/I&O's: Vital Signs Temp Pulse Resp BP Pulse Ox 97.7 F L 81 18 129/62 H 92 08/13/20 08:55 08/13/20 08:55 08/13/20 08:55 08/13/20 08:55 08/13/20 08:55 Oxygen Flow Rate (L/min) 2 Oxygen Delivery Method Room Air Weight: 87.2 kg Body Mass Index (BMI) 33.0 Intake and Output for Last 24 Hours 08/11/20 08/12/20 08/13/20 23:59 23:59 23:59 Intake Total 1960.75 / 1960.75 3140.50 / 3140.50 800 / 800 Output Total 1900 / 1900 970 / 970 1300 / 1300 Balance 60.75 / 60.75 2170.50 / 2170.50 -500 / -500 General: Alert, Oriented x3, Cooperative, No apparent distress, Well developed, Well nourished, - - older WF lying in bed, visitor at bedside Oral: Moist Mucosa Lungs: Clear to auscultation, No rhonchi, No wheeze, No rales, Diminished - bases slightly Cardiovascular: Regular rate, Regular Rhythm, Normal S1, Normal S2, No murmurs, No Ectopic Activity, No rub noted, No Gallop Abdomen: Bowel Sounds Present, Soft, Non Tender, Non-Distended Extremities: No clubbing, No cyanosis, No edema, Capillary Refill Less than 3 Seconds, Peripheral Pulses Normal Musculoskeletal: Tenderness - L hip, abduction pillow in place Neurological: Cranial nerves II-XII grossly intact, Neuro grossly intact Psych/Mental Status: Appropriate, Flat Affect - frustrated Laboratory Results 08/13/20 04:50: WBC 9.0, RBC 2.64 L, Hgb 7.8 L, Hct 24.2 L, MCV 91.7, MCH 29.5, MCHC 32.2, RDW Std Deviation 47.4 H, RDW Coeff of Papo 14.5, Plt Count 273, MPV 8.5 08/13/20 04:50: Sodium 128 L, Potassium 3.9, Chloride 96 L, Carbon Dioxide 26.0, Anion Gap 6, BUN 13, Creatinine 0.54 L, Estim Creat Clear Calc 41.33, Est GFR (MDRD) Af Amer 142, Est GFR (MDRD) Non-Af 117, BUN/Creatinine Ratio 24.3 H, Glucose 107 H, Calcium 7.8 L Current Medications Acetaminophen (Tylenol) 1,000 mg PO Q8 [facility] Last Admin: 08/13/20 05:15 Dose: 1,000 mg Documented by: Atorvastatin Calcium (Lipitor) 20 mg PO QHS [facility] Last Admin: 08/12/20 22:21 Dose: 20 mg Documented by: Calamine/Phenol (Menthol/Lanolin/Calamine/Znox 113 Gm Tube) 1 applic TOPICAL BID [facility]; Protocol Last Admin: 08/13/20 08:58 Dose: 1 applicatio Documented by: Calcium/Vitamin D (Os-Santiago 500mg + D) 2 tablet PO DAILYCM [facility] Last Admin: 08/13/20 08:57 Dose: 2 tablet Documented by: Diphenhydramine HCl (Benadryl) 25 mg PO DAILY PRN PRN PRN Reason: ALLERGIES Last Admin: 08/13/20 10:10 Dose: 25 mg Documented by: Duloxetine HCl (Cymbalta) 60 mg PO DAILY [facility] Last Admin: 08/13/20 08:58 Dose: 60 mg Documented by: Enoxaparin Sodium (Enoxaparin 40 Mg/0.4 Ml Syringe) 40 mg SC DAILY@0600 [facility] Last Admin: 08/13/20 05:16 Dose: 40 mg Documented by: Famotidine (Pepcid) 20 mg PO DAILY [facility] Last Admin: 08/13/20 08:58 Dose: 20 mg Documented by: Ferrous Gluconate (Ferrous Gluconate) 324 mg PO DAILY@0800 [facility] Last Admin: 08/13/20 08:59 Dose: 324 mg Documented by: Sodium Chloride () 250 mls @ 15 mls/hr IV .[id number] PRN PRN Reason: Saline Flush Last Infusion: 08/12/20 13:52 Dose: Infused Documented by: Sodium Chloride () 250 mls @ 15 mls/hr IV .[id number] PRN PRN Reason: Additional IVPB Infusion Levothyroxine Sodium (Synthroid) 75 mcg PO DAILY@0600 [facility] Last Admin: 08/13/20 05:16 Dose: 75 mcg Documented by: Loperamide HCl (Imodium) 2 mg PO Q2H PRN PRN PRN Reason: diarrhea Losartan Potassium (Cozaar) 50 mg PO QHS [facility] Last Admin: 08/12/20 22:21 Dose: 50 mg Documented by: Morphine Sulfate () 2 - 4 mg IV Q2H PRN PRN PRN Reason: Pain Score 4-10/10 Last Admin: 08/03/20 16:49 Dose: 2 mg Documented by: Morphine Sulfate () 2 - 4 mg IV Q2H PRN PRN PRN Reason: Pain Score 4-10/10 Multivitamins (Multivitamin) 1 tablet PO DAILY@0800 [facility] Last Admin: 08/13/20 08:59 Dose: 1 tablet Documented by: Nutritional Formula (Lactose Free) (Ensure Enlive 120 Ml Liquid) 120 ml PO 4X/DAY [facility] Last Admin: 08/13/20 09:02 Dose: 120 ml Documented by: Ondansetron HCl (Zofran) 4 mg IV Q8H PRN PRN PRN Reason: NAUSEA Oxycodone HCl (Oxyir) 5 - 10 mg PO Q4H PRN PRN PRN Reason: Pain Score 4-10/10 Last Admin: 08/13/20 05:15 Dose: 10 mg Documented by: Pantoprazole Sodium (Protonix) 40 mg PO BID [facility] Last Admin: 08/13/20 08:57 Dose: 40 mg Documented by: Polyethylene Glycol (Polyethylene Glycol 3350 17 Gm Packet) 17 gm PO DAILY [facility] Last Admin: 08/13/20 08:59 Dose: Not Given Documented by: Senna/Docusate Sodium (Senokot-S, Sally-Colace) 2 tablet PO BID [facility] Last Admin: 08/13/20 08:58 Dose: 2 tablet Documented by: Sodium Biphosphate/Sodium Phosphate (Fleet Enema) 1 bottle RECTAL X1 ONE Stop: 08/13/20 12:26 Sodium Chloride () 10 - 40 ml IV UD PRN PRN Reason: SALINE FLUSH Last Admin: 08/11/20 20:46 Dose: 10 ml Documented by: Zolpidem Tartrate (Ambien (Generic)) 5 mg PO QHS PRN PRN Reason: .INSOMNIA Last Admin: 08/12/20 22:21 Dose: 5 mg Documented by: STROKE Vital Signs/Narrative: Vital Signs Temp Pulse Resp BP Pulse Ox 08/13/20 08:55 97.7 F L 81 18 129/62 H 92 Medical Necessity - Tobacco Use Smoking Status: Former smoker Tobacco Use: Non-smoker Assessment/Plan All Active Problems (Last Reviewed 03/31/20 @ 09:37 by Sylvie Cole) Pre-op examination (Acute) Abnormal nuclear stress test (Acute) 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) Status post right hip replacement (Resolved) L BAM s/p post dislocation and revision -pain is controlled -moving bowels -PT/OT -TTWB status on L for 2 weeks -went to OR 08/06 for reduction of dislocation -revision on 08/11 -abduction pillow while in bed only -post hip precautions Acute on Chronic Anemia in the post-operative period -takes Fe at baseline -did receive 2 u PRBC here post op -hg has been stable since tranfusion after 1st surgery -cbc in am CAD -EZEKIEL to prox diagonal 07/16/2019 -continue ASA/Plavix GERD -continue PPI Hypothyroidism -continue Synthroid Hyponatremia -down a bit today but suspect she got quite a bit of volume in the OR -bmp in am -baseline Na appears to be 131-137 range Constipation -fleets today -has stool softener ordered -miralax daily -this is evidently a chronic issue HTN/HPL -continue Losartan -continue Crestor Anxiety/Depression -continue Cymbalta HELENA -pt non-compliant with mask at baseline DVT Prophylaxis -Lovenox daily Dispo -Medically stable for TCU once pre-cert obtained and ok per ortho -am lab Inpatient E&M: 27005 Subs Hosp L2
--- NOTE | 2020-08-13 13:25 | PN.ORTHO_ITS ---
Subjective: Patient is overall doing well. No acute events overnight. Stable on room air. She does report she had some lightheadedness yesterday. No shortness of breath. No chest pain. Patient does report that her energy level is low. - Physical Exam Vitals/I&O's: Vital Signs Temp Pulse Resp BP Pulse Ox 97.7 F L 81 18 129/62 H 92 08/13/20 08:55 08/13/20 08:55 08/13/20 08:55 08/13/20 08:55 08/13/20 08:55 Oxygen Flow Rate (L/min) 2 Oxygen Delivery Method Room Air Weight: 192 lb 3.889 oz Body Mass Index (BMI) 33.0 Intake and Output for Last 24 Hours 08/11/20 08/12/20 08/13/20 23:59 23:59 23:59 Intake Total 1960.75 / 1960.75 3140.50 / 3140.50 800 / 800 Output Total 1900 / 1900 970 / 970 1300 / 1300 Balance 60.75 / 60.75 2170.50 / 2170.50 -500 / -500 General: Alert, Oriented x3, Cooperative, - - Pale coloration HEENT: Atraumatic Extremities: - - Left lower extremity: Dressings are clean dry and intact Sensations intact to light touch saphenous, sural, superficial peroneal, deep peroneal, and tibial distributions Motors intact EHL, DF, PF calves are soft and supple Laboratory Results 08/13/20 04:50: WBC 9.0, RBC 2.64 L, Hgb 7.8 L, Hct 24.2 L, MCV 91.7, MCH 29.5, MCHC 32.2, RDW Std Deviation 47.4 H, RDW Coeff of Papo 14.5, Plt Count 273, MPV 8.5 08/13/20 04:50: Sodium 128 L, Potassium 3.9, Chloride 96 L, Carbon Dioxide 26.0, Anion Gap 6, BUN 13, Creatinine 0.54 L, Estim Creat Clear Calc 41.33, Est GFR (MDRD) Af Amer 142, Est GFR (MDRD) Non-Af 117, BUN/Creatinine Ratio 24.3 H, Glucose 107 H, Calcium 7.8 L Current Medications Acetaminophen (Tylenol) 1,000 mg PO Q8 [facility] Last Admin: 08/13/20 05:15 Dose: 1,000 mg Documented by: Atorvastatin Calcium (Lipitor) 20 mg PO QHS [facility] Last Admin: 08/12/20 22:21 Dose: 20 mg Documented by: Calamine/Phenol (Menthol/Lanolin/Calamine/Znox 113 Gm Tube) 1 applic TOPICAL BID [facility]; Protocol Last Admin: 08/13/20 08:58 Dose: 1 applicatio Documented by: Calcium/Vitamin D (Os-Santiago 500mg + D) 2 tablet PO DAILYCM [facility] Last Admin: 08/13/20 08:57 Dose: 2 tablet Documented by: Diphenhydramine HCl (Benadryl) 25 mg PO DAILY PRN PRN PRN Reason: ALLERGIES Last Admin: 08/13/20 10:10 Dose: 25 mg Documented by: Duloxetine HCl (Cymbalta) 60 mg PO DAILY [facility] Last Admin: 08/13/20 08:58 Dose: 60 mg Documented by: Enoxaparin Sodium (Enoxaparin 40 Mg/0.4 Ml Syringe) 40 mg SC DAILY@0600 [facility] Last Admin: 08/13/20 05:16 Dose: 40 mg Documented by: Famotidine (Pepcid) 20 mg PO DAILY [facility] Last Admin: 08/13/20 08:58 Dose: 20 mg Documented by: Ferrous Gluconate (Ferrous Gluconate) 324 mg PO DAILY@0800 [facility] Last Admin: 08/13/20 08:59 Dose: 324 mg Documented by: Sodium Chloride () 250 mls @ 15 mls/hr IV .[id number] PRN PRN Reason: Saline Flush Last Infusion: 08/12/20 13:52 Dose: Infused Documented by: Sodium Chloride () 250 mls @ 15 mls/hr IV .[id number] PRN PRN Reason: Additional IVPB Infusion Levothyroxine Sodium (Synthroid) 75 mcg PO DAILY@0600 [facility] Last Admin: 08/13/20 05:16 Dose: 75 mcg Documented by: Loperamide HCl (Imodium) 2 mg PO Q2H PRN PRN PRN Reason: diarrhea Losartan Potassium (Cozaar) 50 mg PO QHS [facility] Last Admin: 08/12/20 22:21 Dose: 50 mg Documented by: Morphine Sulfate () 2 - 4 mg IV Q2H PRN PRN PRN Reason: Pain Score 4-10/10 Last Admin: 08/03/20 16:49 Dose: 2 mg Documented by: Morphine Sulfate () 2 - 4 mg IV Q2H PRN PRN PRN Reason: Pain Score 4-10/10 Multivitamins (Multivitamin) 1 tablet PO DAILY@0800 [facility] Last Admin: 08/13/20 08:59 Dose: 1 tablet Documented by: Nutritional Formula (Lactose Free) (Ensure Enlive 120 Ml Liquid) 120 ml PO 4X/DAY [facility] Last Admin: 08/13/20 09:02 Dose: 120 ml Documented by: Ondansetron HCl (Zofran) 4 mg IV Q8H PRN PRN PRN Reason: NAUSEA Oxycodone HCl (Oxyir) 5 - 10 mg PO Q4H PRN PRN PRN Reason: Pain Score 4-10/10 Last Admin: 08/13/20 05:15 Dose: 10 mg Documented by: Pantoprazole Sodium (Protonix) 40 mg PO BID [facility] Last Admin: 08/13/20 08:57 Dose: 40 mg Documented by: Polyethylene Glycol (Polyethylene Glycol 3350 17 Gm Packet) 17 gm PO DAILY [facility] Last Admin: 08/13/20 08:59 Dose: Not Given Documented by: Senna/Docusate Sodium (Senokot-S, Sally-Colace) 2 tablet PO BID [facility] Last Admin: 08/13/20 08:58 Dose: 2 tablet Documented by: Sodium Chloride () 10 - 40 ml IV UD PRN PRN Reason: SALINE FLUSH Last Admin: 08/11/20 20:46 Dose: 10 ml Documented by: Zolpidem Tartrate (Ambien (Generic)) 5 mg PO QHS PRN PRN Reason: .INSOMNIA Last Admin: 08/12/20 22:21 Dose: 5 mg Documented by: Medical Necessity - Tobacco Use Smoking Status: Former smoker Tobacco Use: Non-smoker Assessment/Plan All Active Problems (Last Reviewed 03/31/20 @ 09:37 by Sylvie Cole) Pre-op examination (Acute) Abnormal nuclear stress test (Acute) 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 POD2 S/P left revision posterior total hip replacement entire femoral and acetabular component secondary to instability and femoral subsidence POD #11, patient initially went original left posterior robotic assisted total hip replacement on August 02, 2020 but had instability and dislocation. 2. Continue Pain Medications: Tylenol and oxycodone. 3. DVT Prophylaxis: Patient has been on Lovenox. 4. PT/OT: Toe-touch weightbearing left lower extremity with walker. Continue with posterior hip dislocation precautions for 3 months postoperatively. Abduction pillow while in bed 5. acute on chronic anemia related to intraoperative blood loss: Currently 7.8. Patient did receive 2 units of packed red blood cells on August 11, 2020. Does report some lightheadedness yesterday, she feels this is improved today. Blood pressure stable, heart rate is stable. 6. Encouraged Incentive Spirometry 7. Continue postoperative medical management per medicine 8 Disposition: Due to patient's comorbidities and restrictions, patient will require halfway facility upon discharge. She will be toe-touch weightbearing on the left lower extremity for 2 weeks postoperatively. She will continue with posterior hip dislocation precautions for 3 months. We are currently still waiting on pre-CERT from insurance for patient to go to the transitional care unit. [facility] Office:
[2020-08-13] MEDS: Fleet Enema 1 ML RECTAL (13:29)
[2020-08-13 14:15] VITALS: BP 120/67; PULSE 87; RESP 18; TEMP 36.6; O2SAT 97
[2020-08-13 20:15] VITALS: BP 113/66; PULSE 97; RESP 16; TEMP 37.2; O2SAT 97
[2020-08-13] MEDS: Atorvastatin Calcium 20 MG Tablet PO (22:51)
[2020-08-13] MEDS: Losartan Potassium 50 MG Tablet PO (22:51)
[2020-08-14 02:45] VITALS: BP 106/62; PULSE 55; RESP 16; TEMP 36.9; O2SAT 96
[2020-08-14] MEDS: Enoxaparin 40 MG/0.4 ML Syringe SC (06:28)
[2020-08-14] MEDS: Levothyroxine 75 MCG Tablet PO (06:28)
[2020-08-14] MEDS: 0.9% Saline Lock 10 ML Syringe IV (06:28)
[2020-08-14] MEDS: Acetaminophen 500 MG Tablet 1000 MG PO ×3 (06:28→22:53)
--- NOTE | 2020-08-14 06:39 | PCM.PN.ORT ---
Subjective: The patient was sitting in bed upon examination. Patient denies any chest pain, shortness of breath, dizziness, lightheadedness, nausea or vomiting, or calf pain. Pain is controlled on medications. No adverse overnight events. Patient did have some dizziness yesterday. Her hemoglobin yesterday was 7.8. Lab work is not been back yet. There is possibility patient may require additional blood today dependent upon lab work. We are also still waiting on clearance from the insurance for patient to go to the transitional care unit. Patient states she does feel better today when talking with her. Objective: Vital signs stable and afebrile. Patient is able to plantarflex and dorsiflex actively. Sensation is intact to light touch to saphenous, sural, superficial and deep peroneal, and tibial distribution. Dressing is clean dry and intact. Negative Homans bilaterally, negative signs and symptoms of DVT. - Physical Exam Vitals/I&O's: Vital Signs Temp Pulse Resp BP Pulse Ox 98.4 F 55 L 16 106/62 96 08/14/20 02:45 08/14/20 02:45 08/14/20 02:45 08/14/20 02:45 08/14/20 02:45 Oxygen Flow Rate (L/min) 2 Oxygen Delivery Method Room Air Weight: 87.2 kg Body Mass Index (BMI) 33.0 Intake and Output for Last 24 Hours 08/12/20 08/13/20 08/14/20 23:59 23:59 23:59 Intake Total 3140.50 / 3140.50 2200 / 2200 600 / 600 Output Total 970 / 970 2450 / 2450 400 / 400 Balance 2170.50 / 2170.50 -250 / -250 200 / 200 Current Medications Acetaminophen (Tylenol) 1,000 mg PO Q8 [facility] Last Admin: 08/14/20 06:28 Dose: 1,000 mg Documented by: Atorvastatin Calcium (Lipitor) 20 mg PO QHS [facility] Last Admin: 08/13/20 22:51 Dose: 20 mg Documented by: Calamine/Phenol (Menthol/Lanolin/Calamine/Znox 113 Gm Tube) 1 applic TOPICAL BID [facility]; Protocol Last Admin: 08/13/20 22:51 Dose: 1 applicatio Documented by: Calcium/Vitamin D (Os-Santiago 500mg + D) 2 tablet PO DAILYCM [facility] Last Admin: 08/13/20 08:57 Dose: 2 tablet Documented by: Diphenhydramine HCl (Benadryl) 25 mg PO DAILY PRN PRN PRN Reason: ALLERGIES Last Admin: 08/13/20 10:10 Dose: 25 mg Documented by: Duloxetine HCl (Cymbalta) 60 mg PO DAILY [facility] Last Admin: 08/13/20 08:58 Dose: 60 mg Documented by: Enoxaparin Sodium (Enoxaparin 40 Mg/0.4 Ml Syringe) 40 mg SC DAILY@0600 [facility] Last Admin: 08/14/20 06:28 Dose: 40 mg Documented by: Famotidine (Pepcid) 20 mg PO DAILY [facility] Last Admin: 08/13/20 08:58 Dose: 20 mg Documented by: Ferrous Gluconate (Ferrous Gluconate) 324 mg PO DAILY@0800 [facility] Last Admin: 08/13/20 08:59 Dose: 324 mg Documented by: Sodium Chloride () 250 mls @ 15 mls/hr IV .[id number] PRN PRN Reason: Saline Flush Last Infusion: 08/12/20 13:52 Dose: Infused Documented by: Sodium Chloride () 250 mls @ 15 mls/hr IV .[id number] PRN PRN Reason: Additional IVPB Infusion Levothyroxine Sodium (Synthroid) 75 mcg PO DAILY@0600 [facility] Last Admin: 08/14/20 06:28 Dose: 75 mcg Documented by: Loperamide HCl (Imodium) 2 mg PO Q2H PRN PRN PRN Reason: diarrhea Losartan Potassium (Cozaar) 50 mg PO QHS [facility] Last Admin: 08/13/20 22:51 Dose: 50 mg Documented by: Morphine Sulfate () 2 - 4 mg IV Q2H PRN PRN PRN Reason: Pain Score 4-10/10 Last Admin: 08/03/20 16:49 Dose: 2 mg Documented by: Morphine Sulfate () 2 - 4 mg IV Q2H PRN PRN PRN Reason: Pain Score 4-10/10 Multivitamins (Multivitamin) 1 tablet PO DAILY@0800 [facility] Last Admin: 08/13/20 08:59 Dose: 1 tablet Documented by: Nutritional Formula (Lactose Free) (Ensure Enlive 120 Ml Liquid) 120 ml PO 4X/DAY [facility] Last Admin: 08/13/20 22:54 Dose: 120 ml Documented by: Ondansetron HCl (Zofran) 4 mg IV Q8H PRN PRN PRN Reason: NAUSEA Oxycodone HCl (Oxyir) 5 - 10 mg PO Q4H PRN PRN PRN Reason: Pain Score 4-10/10 Last Admin: 08/13/20 19:22 Dose: 10 mg Documented by: Pantoprazole Sodium (Protonix) 40 mg PO BID [facility] Last Admin: 08/13/20 22:51 Dose: 40 mg Documented by: Polyethylene Glycol (Polyethylene Glycol 3350 17 Gm Packet) 17 gm PO DAILY [facility] Last Admin: 08/13/20 08:59 Dose: Not Given Documented by: Senna/Docusate Sodium (Senokot-S, Sally-Colace) 2 tablet PO BID [facility] Last Admin: 08/13/20 22:51 Dose: 2 tablet Documented by: Sodium Chloride () 10 - 40 ml IV UD PRN PRN Reason: SALINE FLUSH Last Admin: 08/14/20 06:28 Dose: 10 ml Documented by: Zolpidem Tartrate (Ambien (Generic)) 5 mg PO QHS PRN PRN Reason: .INSOMNIA Last Admin: 08/12/20 22:21 Dose: 5 mg Documented by: Medical Necessity - Tobacco Use Smoking Status: Former smoker Tobacco Use: Non-smoker Assessment/Plan All Active Problems (Last Reviewed 03/31/20 @ 09:37 by Sylvie Cole) Pre-op examination (Acute) Abnormal nuclear stress test (Acute) 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 S/P left revision posterior total hip replacement entire femoral and acetabular component secondary to instability and femoral subsidence POD#3, patient initially went original left posterior robotic assisted total hip replacement on August 02, 2020 (POD#12) but had instability and dislocation. 2. Continue Pain Medications: Tylenol and oxycodone. 3. DVT Prophylaxis: Patient has been on Lovenox. 4. PT/OT: Toe-touch weightbearing left lower extremity with walker. Continue with posterior hip dislocation precautions for 3 months postoperatively. Abduction pillow while in bed 5. acute on chronic anemia related to intraoperative blood loss: Lab work has not been reported yet. We will continue to monitor. May require additional blood transfusion dependent upon lab work. Patient did receive 2 units of packed red blood cells on August 11, 2020. She is currently asymptomatic but did have lightheadedness prior to previous transfusion. 6. Encouraged Incentive Spirometry 7. Continue postoperative medical management per medicine 8 Disposition: Due to patient's comorbidities and restrictions, patient will require care home facility upon discharge. She will be toe-touch weightbearing on the left lower extremity for 2 weeks postoperatively. She will continue with posterior hip dislocation precautions for 3 months. We are currently still waiting on pre-CERT from insurance for patient to go to the transitional care unit.
[2020-08-14 07:02] LABS: Hematocrit 23.4 % (37-47); Hemoglobin 7.5 g/dL (12.0-15.0); Mean Corp Hgb Conc 32.1 g/dL (32-36); Mean Corpuscular Hgb 30.1 pg (27.0-32.0); Mean Platelet Vol. 8.7 fl (6.2-12.0); Platelet Count 262 K/mm3 (150-450); RBC Distribution Width CV 14.6 % (11.6-14.6); RBC Distribution Width SD 48.7 fl (35.1-43.9); Red Blood Count 2.49 M/mm3 (4.2-5.4); White Blood Count 7.8 K/mm3 (4.4-11.0)
[2020-08-14 07:26] LABS: Anion Gap 6 (5-15); BUN 12 mg/dL (7-18); BUN/Creat Ratio 25.9 RATIO (10-20); Calcium,Total 7.8 mg/dL (8.5-10.1); Chloride 96 mmol/L (98-107); Creatinine, Serum 0.46 mg/dL (0.55-1.02); EST Glomerular Filtration Rate 139 mL/min (>60); Est Glom Filt Rate - Afr Amer 168 mL/min (>60); Estimated Creatinine Clearance 41.33 ml/min; Glucose 89 mg/dL (74-106); Potassium 4.2 mmol/L (3.5-5.1); Sodium Level 129 mmol/L (136-145)
--- NOTE | 2020-08-14 08:43 | PN_ITS ---
Vitals/I&O's: Vital Signs Temp Pulse Resp BP Pulse Ox 98.4 F 55 L 16 106/62 96 08/14/20 02:45 08/14/20 02:45 08/14/20 02:45 08/14/20 02:45 08/14/20 02:45 Oxygen Flow Rate (L/min) 2 Oxygen Delivery Method Room Air Weight: 87.2 kg Body Mass Index (BMI) 33.0 Intake and Output for Last 24 Hours 08/12/20 08/13/20 08/14/20 23:59 23:59 23:59 Intake Total 3140.50 / 3140.50 2200 / 2200 600 / 600 Output Total 970 / 970 2450 / 2450 400 / 400 Balance 2170.50 / 2170.50 -250 / -250 200 / 200 Laboratory Results 08/14/20 06:05: WBC 7.8, RBC 2.49 L, Hgb 7.5 L, Hct 23.4 L, MCV 94.0, MCH 30.1, MCHC 32.1, RDW Std Deviation 48.7 H, RDW Coeff of Papo 14.6, Plt Count 262, MPV 8.7 08/14/20 06:05: Sodium 129 L, Potassium 4.2, Chloride 96 L, Carbon Dioxide 27.0, Anion Gap 6, BUN 12, Creatinine 0.46 L, Estim Creat Clear Calc 41.33, Est GFR (MDRD) Af Amer 168, Est GFR (MDRD) Non-Af 139, BUN/Creatinine Ratio 25.9 H, Glucose 89, Calcium 7.8 L Current Medications Acetaminophen (Tylenol) 1,000 mg PO Q8 [facility] Last Admin: 08/14/20 06:28 Dose: 1,000 mg Documented by: Atorvastatin Calcium (Lipitor) 20 mg PO QHS [facility] Last Admin: 08/13/20 22:51 Dose: 20 mg Documented by: Calamine/Phenol (Menthol/Lanolin/Calamine/Znox 113 Gm Tube) 1 applic TOPICAL BID [facility]; Protocol Last Admin: 08/13/20 22:51 Dose: 1 applicatio Documented by: Calcium/Vitamin D (Os-Santiago 500mg + D) [facility] Last Admin: 08/13/20 08:57 Dose: 2 tablet Documented by: Diphenhydramine HCl (Benadryl) 25 mg PO DAILY PRN PRN PRN Reason: ALLERGIES Last Admin: 08/13/20 10:10 Dose: 25 mg Documented by: Duloxetine HCl (Cymbalta) 60 mg PO DAILY [facility] Last Admin: 08/13/20 08:58 Dose: 60 mg Documented by: Enoxaparin Sodium (Enoxaparin 40 Mg/0.4 Ml Syringe) 40 mg SC DAILY@0600 [facility] Last Admin: 08/14/20 06:28 Dose: 40 mg Documented by: Famotidine (Pepcid) 20 mg PO DAILY [facility] Last Admin: 08/13/20 08:58 Dose: 20 mg Documented by: Ferrous Gluconate (Ferrous Gluconate) 324 mg PO DAILY@0800 [facility] Last Admin: 08/13/20 08:59 Dose: 324 mg Documented by: Sodium Chloride () 250 mls @ 15 mls/hr IV .[id number] PRN PRN Reason: Saline Flush Last Infusion: 08/12/20 13:52 Dose: Infused Documented by: Sodium Chloride () 250 mls @ 15 mls/hr IV .[id number] PRN PRN Reason: Additional IVPB Infusion Levothyroxine Sodium (Synthroid) 75 mcg PO DAILY@0600 [facility] Last Admin: 08/14/20 06:28 Dose: 75 mcg Documented by: Loperamide HCl (Imodium) 2 mg PO Q2H PRN PRN PRN Reason: diarrhea Losartan Potassium (Cozaar) 50 mg PO QHS [facility] Last Admin: 08/13/20 22:51 Dose: 50 mg Documented by: Morphine Sulfate () 2 - 4 mg IV Q2H PRN PRN PRN Reason: Pain Score 4-10/10 Last Admin: 08/03/20 16:49 Dose: 2 mg Documented by: Morphine Sulfate () 2 - 4 mg IV Q2H PRN PRN PRN Reason: Pain Score 4-10/10 Multivitamins (Multivitamin) 1 tablet PO DAILY@0800 [facility] Last Admin: 08/13/20 08:59 Dose: 1 tablet Documented by: Nutritional Formula (Lactose Free) (Ensure Enlive 120 Ml Liquid) 120 ml PO 4X/DAY [facility] Last Admin: 08/13/20 22:54 Dose: 120 ml Documented by: Ondansetron HCl (Zofran) 4 mg IV Q8H PRN PRN PRN Reason: NAUSEA Oxycodone HCl (Oxyir) 5 - 10 mg PO Q4H PRN PRN PRN Reason: Pain Score 4-10/10 Last Admin: 08/13/20 19:22 Dose: 10 mg Documented by: Pantoprazole Sodium (Protonix) 40 mg PO BID [facility] Last Admin: 08/13/20 22:51 Dose: 40 mg Documented by: Polyethylene Glycol (Polyethylene Glycol 3350 17 Gm Packet) 17 gm PO DAILY [facility] Last Admin: 08/13/20 08:59 Dose: Not Given Documented by: Senna/Docusate Sodium (Senokot-S, Sally-Colace) 2 tablet PO BID [facility] Last Admin: 08/13/20 22:51 Dose: 2 tablet Documented by: Sodium Chloride () 10 - 40 ml IV UD PRN PRN Reason: SALINE FLUSH Last Admin: 08/14/20 06:28 Dose: 10 ml Documented by: Zolpidem Tartrate (Ambien (Generic)) 5 mg PO QHS PRN PRN Reason: .INSOMNIA Last Admin: 08/12/20 22:21 Dose: 5 mg Documented by: Medical Necessity - Tobacco Use Smoking Status: Former smoker Tobacco Use: Non-smoker Assessment/Plan All Active Problems (Last Reviewed 03/31/20 @ 09:37 by Sylvie Cole) Pre-op examination (Acute) Abnormal nuclear stress test (Acute) 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) Status post right hip replacement (Resolved)
--- NOTE | 2020-08-14 09:50 | PN_ITS ---
Reason for Visit: Status post left total hip replacement Hyponatremia Subjective: Patient is a 74-year-old lady who underwent Left posterior robotic assisted total hip replacement on 08/02/2020. Patient did experience acute posterior dislocation left total hip replacement, for which she underwent Closed reduction under anesthesia left total hip replacement on 08/06/2020.. She underwent left revision posterior total hip replacement entire femoral and acetabular components on 08/11/2020 on account of Left hip instability status post total joint replacement and Left hip femoral subsidence Objective: GENERAL: Patient in no apparent distress HEENT: Atraumatic; EYES; Anicteric, Normal Conjunctiva NECK; supple, normal thyroid, RESPIRATORY: Diminished to auscultation CARDIOVASCULAR: Regular S1 S2, GI: soft, normoactive bowel sounds, : No Renal angle tenderness; EXTREMITIES: No edema, no clubbing, MUSCULOSKELETAL: no muscle waisting NEURO: Awake; no lateralizing signs. SKIN: No Rash PSYCH; Flat affect Vitals/I&O's: Vital Signs Temp Pulse Resp BP Pulse Ox 98.4 F 55 L 16 106/62 96 08/14/20 02:45 08/14/20 02:45 08/14/20 02:45 08/14/20 02:45 08/14/20 02:45 Oxygen Flow Rate (L/min) 2 Oxygen Delivery Method Room Air Weight: 87.2 kg Body Mass Index (BMI) 33.0 Intake and Output for Last 24 Hours 08/12/20 08/13/20 08/14/20 23:59 23:59 23:59 Intake Total 3140.50 / 3140.50 2200 / 2200 600 / 600 Output Total 970 / 970 2450 / 2450 400 / 400 Balance 2170.50 / 2170.50 -250 / -250 200 / 200 Laboratory Results 08/14/20 06:05: WBC 7.8, RBC 2.49 L, Hgb 7.5 L, Hct 23.4 L, MCV 94.0, MCH 30.1, MCHC 32.1, RDW Std Deviation 48.7 H, RDW Coeff of Papo 14.6, Plt Count 262, MPV 8.7 08/14/20 06:05: Sodium 129 L, Potassium 4.2, Chloride 96 L, Carbon Dioxide 27.0, Anion Gap 6, BUN 12, Creatinine 0.46 L, Estim Creat Clear Calc 41.33, Est GFR (MDRD) Af Amer 168, Est GFR (MDRD) Non-Af 139, BUN/Creatinine Ratio 25.9 H, Glucose 89, Calcium 7.8 L Current Medications Acetaminophen (Tylenol) 1,000 mg PO Q8 [facility] Last Admin: 08/14/20 06:28 Dose: 1,000 mg Documented by: Atorvastatin Calcium (Lipitor) 20 mg PO QHS [facility] Last Admin: 08/13/20 22:51 Dose: 20 mg Documented by: Calamine/Phenol (Menthol/Lanolin/Calamine/Znox 113 Gm Tube) 1 applic TOPICAL BID [facility]; Protocol Last Admin: 08/13/20 22:51 Dose: 1 applicatio Documented by: Calcium/Vitamin D (Os-Santiago 500mg + D) 2 tablet PO DAILYCM [facility] Last Admin: 08/13/20 08:57 Dose: 2 tablet Documented by: Diphenhydramine HCl (Benadryl) 25 mg PO DAILY PRN PRN PRN Reason: ALLERGIES Last Admin: 08/13/20 10:10 Dose: 25 mg Documented by: Duloxetine HCl (Cymbalta) 60 mg PO DAILY [facility] Last Admin: 08/13/20 08:58 Dose: 60 mg Documented by: Enoxaparin Sodium (Enoxaparin 40 Mg/0.4 Ml Syringe) 40 mg SC DAILY@0600 [facility] Last Admin: 08/14/20 06:28 Dose: 40 mg Documented by: Famotidine (Pepcid) 20 mg PO DAILY [facility] Last Admin: 08/13/20 08:58 Dose: 20 mg Documented by: Ferrous Gluconate (Ferrous Gluconate) 324 mg PO DAILY@0800 [facility] Last Admin: 08/13/20 08:59 Dose: 324 mg Documented by: Sodium Chloride () 250 mls @ 15 mls/hr IV .[id number] PRN PRN Reason: Saline Flush Last Infusion: 08/12/20 13:52 Dose: Infused Documented by: Sodium Chloride () 250 mls @ 15 mls/hr IV .[id number] PRN PRN Reason: Additional IVPB Infusion Levothyroxine Sodium (Synthroid) 75 mcg PO DAILY@0600 [facility] Last Admin: 08/14/20 06:28 Dose: 75 mcg Documented by: Loperamide HCl (Imodium) 2 mg PO Q2H PRN PRN PRN Reason: diarrhea Losartan Potassium (Cozaar) 50 mg PO QHS [facility] Last Admin: 08/13/20 22:51 Dose: 50 mg Documented by: Morphine Sulfate () 2 - 4 mg IV Q2H PRN PRN PRN Reason: Pain Score 4-10/10 Last Admin: 08/03/20 16:49 Dose: 2 mg Documented by: Morphine Sulfate () 2 - 4 mg IV Q2H PRN PRN PRN Reason: Pain Score 4-10/10 Multivitamins (Multivitamin) 1 tablet PO DAILY@0800 [facility] Last Admin: 08/13/20 08:59 Dose: 1 tablet Documented by: Nutritional Formula (Lactose Free) (Ensure Enlive 120 Ml Liquid) 120 ml PO 4X/DAY [facility] Last Admin: 08/13/20 22:54 Dose: 120 ml Documented by: Ondansetron HCl (Zofran) 4 mg IV Q8H PRN PRN PRN Reason: NAUSEA Oxycodone HCl (Oxyir) 5 - 10 mg PO Q4H PRN PRN PRN Reason: Pain Score 4-10/10 Last Admin: 08/13/20 19:22 Dose: 10 mg Documented by: Pantoprazole Sodium (Protonix) 40 mg PO BID [facility] Last Admin: 08/13/20 22:51 Dose: 40 mg Documented by: Polyethylene Glycol (Polyethylene Glycol 3350 17 Gm Packet) 17 gm PO DAILY [facility] Last Admin: 08/13/20 08:59 Dose: Not Given Documented by: Senna/Docusate Sodium (Senokot-S, Sally-Colace) 2 tablet PO BID [facility] Last Admin: 08/13/20 22:51 Dose: 2 tablet Documented by: Sodium Chloride () 10 - 40 ml IV UD PRN PRN Reason: SALINE FLUSH Last Admin: 08/14/20 06:28 Dose: 10 ml Documented by: Zolpidem Tartrate (Ambien (Generic)) 5 mg PO QHS PRN PRN Reason: .INSOMNIA Last Admin: 08/12/20 22:21 Dose: 5 mg Documented by: Medical Necessity - Tobacco Use Smoking Status: Former smoker Tobacco Use: Non-smoker Assessment/Plan All Active Problems (Last Reviewed 03/31/20 @ 09:37 by Sylvie Cole) Pre-op examination (Acute) Abnormal nuclear stress test (Acute) 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) Status post right hip replacement (Resolved) Patient is a 74-year-old lady who underwent Left posterior robotic assisted total hip replacement on 08/02/2020. Patient did experience acute posterior dislocation left total hip replacement, for which she underwent Closed reduction under anesthesia left total hip replacement on 08/06/2020.. She underwent left revision posterior total hip replacement entire femoral and acetabular components on 08/11/2020 on account of Left hip instability status post total joint replacement and Left hip femoral subsidence 1. Status post left total hip replacement - underwent Left posterior robotic assisted total hip replacement on 08/02/2020. Patient did experience acute posterior dislocation left total hip replacement, for which she underwent Closed reduction under anesthesia left total hip replacement on 08/06/2020.. She underwent left revision posterior total hip replacement entire femoral and acetabular components on 08/11/2020 on account of Left hip instability status post total joint replacement and Left hip femoral subsidence 2. Anemia - Secondary to combination of acute blood loss anemia from surgery as well as chronic disorder monitoring H&H. Patient has been transfused a total of 2 unit PRBC 3. Coronary artery disease ?With previous history of PCI with EZEKIEL to proximal diagonal lesion on 07/16/2019. Patient is on dual antiplatelet therapy did continue 4. Hypothyroidism - Patient is on levothyroxine home dose continued 5. GERD on PPI 6. Hypertension - Blood pressure controlled, home medications continued with dose adjustment as needed 7. Dyslipidemia -Patient is on statin therapy, continued at home dose 8. Constipation ?Treated symptomatically 9. 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 Depression with anxiety -Patient is on Cymbalta 11. Obstructive sleep apnea ?Patient is on CPAP 12. DVT Prophylaxis -Lovenox daily Inpatient E&M: 66112 Subs Hosp L2
[2020-08-14 10:00] VITALS: BP 103/66; PULSE 83; RESP 18; TEMP 36.7; O2SAT 97
[2020-08-14] MEDS: Pantoprazole Sodium 40 MG Tablet PO ×2 (10:01→22:54)
[2020-08-14] MEDS: Calcium Carb/Vitamin D 1 TABLET Tablet 2 TABLET PO (10:01)
[2020-08-14] MEDS: Ferrous Gluconate 324 MG Tablet PO (10:01)
[2020-08-14] MEDS: Menthol/Lanolin/Calamine/Znox 113 GM Tube 1 APPLIC TOPICAL ×2 (10:01→22:54)
[2020-08-14] MEDS: DULoxetine Hcl 60 MG Capsule PO (10:01)
[2020-08-14] MEDS: Multivitamins,Therapeutic Tablet 1 TABLET PO (10:01)
[2020-08-14] MEDS: Senna/Docusate Sodium 1 Tablet 2 TABLET PO ×2 (10:02→22:54)
[2020-08-14] MEDS: Famotidine 20 MG Tablet PO (10:02)
[2020-08-14] MEDS: oxyCODONE 5 MG Tablet PO ×2 (13:39→23:42)
--- NOTE | 2020-08-14 13:41 | NURSING ---
Requesting medication for hip pain. Up in chair. polar care in place. Scheduled tylenol given but resident states her pain is #6/10 and she feels she needs something stronger after all Laila been through. Medicated with oxyir.
--- NOTE | 2020-08-14 14:03 | CASEMGMT ---
Addendum entered by Deja Fine 08/14/20 16:09: SW did place green sheet on chart in the event pt is medically ready for discharge today. Addendum entered by Deja Fine 08/14/20 14:23: AMAURY spoke with Elin in TCU, pt is able to admit to TCU today or tomorrow. Original Note: Social Work Note AMAURY received message from Elin in TCU who states pre-cert has been obtained and pt is able to discharge to TCU today. AMAURY updated physician, pt will likely discharge tomorrow to TCU. Plan: TCU when medically cleared Deja Fine VISUAL MERCHANDISING ASSISTANT, CERT OCCUPATIONAL THER[employer]Y [employer]ST
[2020-08-14 20:40] VITALS: BP 116/50; PULSE 85; RESP 16; TEMP 36.7; O2SAT 96
[2020-08-14] MEDS: Atorvastatin Calcium 20 MG Tablet PO (22:54)
[2020-08-14] MEDS: Losartan Potassium 50 MG Tablet PO (22:54)
[2020-08-14] MEDS: Zolpidem Tartrate 5 MG Tablet PO (22:57)
[2020-08-15 02:40] VITALS: BP 105/58; PULSE 80; RESP 16; TEMP 36.8; O2SAT 96
[2020-08-15] MEDS: Acetaminophen 500 MG Tablet 1000 MG PO (06:06)
[2020-08-15] MEDS: Levothyroxine 75 MCG Tablet PO (06:06)
[2020-08-15] MEDS: Enoxaparin 40 MG/0.4 ML Syringe SC (06:07)
--- NOTE | 2020-08-15 07:07 | PN.ORTHO_ITS ---
Subjective: The patient was sitting in bed upon examination. Patient denies any chest pain, shortness of breath, dizziness, lightheadedness, nausea or vomiting, or calf pain. Pain is controlled on medications. No adverse overnight events. We did obtain pre-CERT for patient to go to the transitional care unit at [facility]. However I do want to see what patient's hemoglobin is today prior to discharge. She has required previous packed red blood cell transfusion and yesterday her hemoglobin was 7.5 but she was asymptomatic. We will recheck this this morning and this will help with discharge planning. Objective: Vital signs stable and afebrile. Currently denies any dizziness or lightheadedness or feeling of passing out. Patient is able to plantarflex and dorsiflex actively. Sensation is intact to light touch to saphenous, sural, superficial and deep peroneal, and tibial distribution. Dressing is clean dry and intact. Negative Homans bilaterally, negative signs and symptoms of DVT. - Physical Exam Vitals/I&O's: Vital Signs Temp Pulse Resp BP Pulse Ox 98.2 F 80 16 105/58 L 96 08/15/20 02:40 08/15/20 02:40 08/15/20 02:40 08/15/20 02:40 08/15/20 02:40 Oxygen Flow Rate (L/min) 2 Oxygen Delivery Method Room Air Weight: 87.2 kg Body Mass Index (BMI) 33.0 Intake and Output for Last 24 Hours 08/13/20 08/14/20 08/15/20 23:59 23:59 23:59 Intake Total 2200 / 2200 1800 / 1800 700 / 700 Output Total 2450 / 2450 2325 / 2325 1000 / 1000 Balance -250 / -250 -525 / -525 -300 / -300 General: Alert, Oriented x3, Cooperative, No apparent distress Laboratory Results 08/14/20 06:05: Sodium 129 L, Potassium 4.2, Chloride 96 L, Carbon Dioxide 27.0, Anion Gap 6, BUN 12, Creatinine 0.46 L, Estim Creat Clear Calc 41.33, Est GFR (MDRD) Af Amer 168, Est GFR (MDRD) Non-Af 139, BUN/Creatinine Ratio 25.9 H, Glucose 89, Calcium 7.8 L Current Medications Acetaminophen (Tylenol) 1,000 mg PO Q8 [facility] Last Admin: 08/15/20 06:06 Dose: 1,000 mg Documented by: Atorvastatin Calcium (Lipitor) 20 mg PO QHS [facility] Last Admin: 08/14/20 22:54 Dose: 20 mg Documented by: Calamine/Phenol (Menthol/Lanolin/Calamine/Znox 113 Gm Tube) 1 applic TOPICAL BID [facility]; Protocol Last Admin: 08/14/20 22:54 Dose: 1 applicatio Documented by: Calcium/Vitamin D (Os-Santiago 500mg + D) 2 tablet PO DAILYCM [facility] Last Admin: 08/14/20 10:01 Dose: 2 tablet Documented by: Diphenhydramine HCl (Benadryl) 25 mg PO DAILY PRN PRN PRN Reason: ALLERGIES Last Admin: 08/13/20 10:10 Dose: 25 mg Documented by: Duloxetine HCl (Cymbalta) 60 mg PO DAILY [facility] Last Admin: 08/14/20 10:01 Dose: 60 mg Documented by: Enoxaparin Sodium (Enoxaparin 40 Mg/0.4 Ml Syringe) 40 mg SC DAILY@0600 [facility] Last Admin: 08/15/20 06:07 Dose: 40 mg Documented by: Famotidine (Pepcid) 20 mg PO DAILY [facility] Last Admin: 08/14/20 10:02 Dose: 20 mg Documented by: Ferrous Gluconate (Ferrous Gluconate) 324 mg PO DAILY@0800 [facility] Last Admin: 08/14/20 10:01 Dose: 324 mg Documented by: Sodium Chloride () 250 mls @ 15 mls/hr IV .[id number] PRN PRN Reason: Saline Flush Last Infusion: 08/12/20 13:52 Dose: Infused Documented by: Sodium Chloride () 250 mls @ 15 mls/hr IV .[id number] PRN PRN Reason: Additional IVPB Infusion Levothyroxine Sodium (Synthroid) 75 mcg PO DAILY@0600 [facility] Last Admin: 08/15/20 06:06 Dose: 75 mcg Documented by: Loperamide HCl (Imodium) 2 mg PO Q2H PRN PRN PRN Reason: diarrhea Losartan Potassium (Cozaar) 50 mg PO QHS [facility] Last Admin: 08/14/20 22:54 Dose: 50 mg Documented by: Morphine Sulfate () 2 - 4 mg IV Q2H PRN PRN PRN Reason: Pain Score 4-10/10 Last Admin: 08/03/20 16:49 Dose: 2 mg Documented by: Morphine Sulfate () 2 - 4 mg IV Q2H PRN PRN PRN Reason: Pain Score 4-10/10 Multivitamins (Multivitamin) 1 tablet PO DAILY@0800 [facility] Last Admin: 08/14/20 10:01 Dose: 1 tablet Documented by: Nutritional Formula (Lactose Free) (Ensure Enlive 120 Ml Liquid) 120 ml PO 4X/DAY [facility] Last Admin: 08/14/20 22:53 Dose: 120 ml Documented by: Ondansetron HCl (Zofran) 4 mg IV Q8H PRN PRN PRN Reason: NAUSEA Oxycodone HCl (Oxyir) 5 - 10 mg PO Q4H PRN PRN PRN Reason: Pain Score 4-10/10 Last Admin: 08/14/20 23:42 Dose: 10 mg Documented by: Pantoprazole Sodium (Protonix) 40 mg PO BID [facility] Last Admin: 08/14/20 22:54 Dose: 40 mg Documented by: Polyethylene Glycol (Polyethylene Glycol 3350 17 Gm Packet) 17 gm PO DAILY [facility] Last Admin: 08/14/20 10:02 Dose: Not Given Documented by: Senna/Docusate Sodium (Senokot-S, Sally-Colace) 2 tablet PO BID [facility] Last Admin: 08/14/20 22:54 Dose: 2 tablet Documented by: Sodium Chloride () 10 - 40 ml IV UD PRN PRN Reason: SALINE FLUSH Last Admin: 08/14/20 06:28 Dose: 10 ml Documented by: Zolpidem Tartrate (Ambien (Generic)) 5 mg PO QHS PRN PRN Reason: .INSOMNIA Last Admin: 08/14/20 22:57 Dose: 5 mg Documented by: Medical Necessity - Tobacco Use Smoking Status: Former smoker Tobacco Use: Non-smoker Assessment/Plan All Active Problems (Last Reviewed 03/31/20 @ 09:37 by Sylvie Cole) Pre-op examination (Acute) Abnormal nuclear stress test (Acute) 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 S/P left revision posterior total hip replacement entire femoral and acetabular component secondary to instability and femoral subsidence POD#4, patient initially went original left posterior robotic assisted total hip replacement on August 02, 2020 (POD#13) but had instability and dislocation. 2. Continue Pain Medications: Tylenol and oxycodone. 3. DVT Prophylaxis: Patient has been on Lovenox. We will continue Lovenox until 2-week follow-up at [facility] [place]. 4. PT/OT: Toe-touch weightbearing left lower extremity with walker. Continue with posterior hip dislocation precautions for 3 months postoperatively. Abduction pillow while in bed 5. acute on chronic anemia related to intraoperative blood loss: CBC has been ordered for this morning. We will continue to monitor. May require additional blood transfusion dependent upon lab work. Patient did receive 2 units of packed red blood cells on August 11, 2020. She is currently asymptomatic but did have lightheadedness prior to previous transfusion. August 14, 2020 the hemoglobin was 7.5 6. Encouraged Incentive Spirometry 7. Continue postoperative medical management per medicine 8 Disposition: Due to patient's comorbidities and restrictions, patient will require senior care facility upon discharge. We have obtained pre-CERT for patient to go to the transitional care unit. However this is dependent upon patient's hemoglobin today. We are rechecking her CBC to see if patient will need any additional blood. She has been asymptomatic clinically. She will be toe-touch weightbearing on the left lower extremity for 2 weeks postoperatively. She will continue with posterior hip dislocation precautions for 3 months. Continue with the hip abduction pillow while in bed. Patient will need scheduled follow-up with [facility] [place] on August 25, 2020 with x-rays and incision check. Prescriptions will be attached to chart. Patient will follow-up in 2 weeks.
--- NOTE | 2020-08-15 07:14 | PCM.DC.THR ---
Discharge Diet: No Restrictions Discharge Activity: May Not Drive - while taking narcotic pain medications. May shower in (days): 1 - Okay to shower and get dressing wet as long as dressing is intact to skin Ice area for (Minutes): 20 - Every 1-2 hours while awake Weight Bearing Status: Toe touch weight bearing - Left lower extremity with walker Elevate: Operative Extremity Additional Activity Instructions:: Wear elastic stockings for 2 weeks. DO NOT use alcohol with narcotic pain medication. DO NOT make important decisions while taking narcotic medication. If you have problems with taking your medication (rash, itching, nausea, etc.) call the office at once. Call your doctor if your incision/area has: Increased Pain/ Swelling, Increased Redness, Foul Smelling Discharge Call your doctor if you observe: Fever of 101 or Higher Remove Dressing in (days):: 1 - Okay to remove dressing on August 16, 2020 Additional Instructions: Physical therapy/Occupational Therapy: Posterior hip dislocation precautions x3 months, toe-touch weightbearing left lower extremity for 2 weeks postoperatively. Continue with hip abduction pillow while in bed Allergies/Adverse Reactions: Allergies cat dander Allergy (Intermediate, Verified 08/02/20 09:02) nasal congestion ciprofloxacin [From Cipro] Allergy (Verified 08/02/20 09:02) Hives ciprofloxacin HCl [From Cipro] Allergy (Verified 08/02/20 09:02) Hives clindamycin Allergy (Verified 08/02/20 09:02) Rash doxycycline Allergy (Verified 08/02/20 09:02) Other latex Allergy (Verified 08/02/20 09:02) Hives nitrofurantoin [From Macrobid] Allergy (Verified 08/02/20 09:02) Other Penicillins Allergy (Verified 08/02/20 09:02) Shortness of breath vortioxetine [From Brintellix] Adverse Reaction (Intermediate, Verified 08/02/20 09:02) GI upset methotrexate Adverse Reaction (Unknown, Verified 08/02/20 09:02) unknown trazodone Adverse Reaction (Verified 08/02/20 09:02) Other [place] FEELING Medications to take at Discharge Levothyroxine [Synthroid] 75 mcg PO DAILY 12/23/13 Esomeprazole Mag Trihydrate [Nexium] 40 mg PO BID 03/15/19 Losartan Potassium [Cozaar] 50 mg PO DAILY 03/15/19 diphenhydramine HCl 25 mg capsule 25 mg PO QDAY PRN cap 07/12/19 zolpidem 10 mg tablet 10 mg PO QHS PRN tab 07/12/19 duloxetine 60 mg capsule,delayed release 60 mg PO DAILY cap 07/13/19 multivitamin 1 tab PO DAILY 03/31/20 Calcium Carbonate/Vitamin D3 [Calcium 500-Vit D3 200 Tablet] 2 ea PO DAILY 07/19/20 Clopidogrel Bisulfate [Clopidogrel] 75 mg PO DAILY 07/19/20 Loperamide [Imodium] 2 mg PO Q2H PRN PRN 07/19/20 Rosuvastatin Calcium 10 mg PO DAILY 07/19/20 Acetaminophen [Tylenol] 1,000 mg PO Q8 14 Days tab 08/05/20 Aspirin [Aspirin, Baby] 81 mg PO BIDCM tab.chew 08/05/20 Ensure Surgery 237 ml PO TIDCM liquid 08/05/20 Ferrous Gluconate 324 mg PO DAILY@0800 tab 08/05/20 Ondansetron [Zofran] 4 mg IV Q8H PRN PRN vial 08/05/20 Oxycodone [Oxyir] 5 - 10 mg PO Q4H PRN PRN 4 Days #48 tab 08/05/20 Senna/Docusate Sodium [Senokot-S] 2 tab PO BID tab 08/05/20 Enoxaparin [Lovenox] 40 mg SC DAILY@0600 syringe 08/15/20 Ensure Enlive 120 ml PO 4X/DAY liquid 08/15/20 The following prescriptions were given: Oxycodone [Oxyir] 5 - 10 mg PO Q4H PRN PRN 4 Days #48 tab PRN Reason: Pain Score 4-08/05 Prescription Printed Primary Care Physician: Ayleen Tam MD [Primary Care Provider] - Test Results: Test results from this visit will be discussed in further detail at your follow-up appointment, if applicable. Please Follow Up With: Kervin Menjivar PA-C When: 08/25/20 will need scheduled appt for xrays and incision check
--- NOTE | 2020-08-15 07:16 | DS.PCM_ITS ---
Discharge Date and Diagnosis Date of Admission: 08/02/20 Date of Discharge: 08/15/20 - Secondary Discharge Diagnosis Chronic Problems: Chronic Problems (Last Reviewed 03/31/20 @ 09:37 by Sylvie Cole) Stented coronary artery (Chronic 07/16/19) 2.5 X 16 Promus Synergy EZEKIEL to Proximal Diag #1 per [facility]N @ [facility], 07/16/2019 Atherosclerosis of coronary artery of sun'aq heart without angina pectoris (Chronic) Hypertension (Chronic) Obstructive sleep apnea (Chronic) Per sleep study done 05/02/2016 Dr. 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 Oc Chan [facility] Course and Treatment Medicine Operations: None, - - Left tibial IM nail insertion Summary of Care Provided: Patient is a 74-year-old female who underwent a robotic assisted left total hip arthroplasty on August 02, 2020. Following surgery patient had instability and dislocation. A closed reduction was performed. Due to the instability and after failing conservative measures, the patient opted to proceed with a left hip revision posterior approach total hip arthroplasty. The patient underwent the above-stated procedure on August 11, 2020. Patient did receive perioperative antibiotics. Intraoperatively was uneventful. For details please see dictated operative note. The patient was placed in thigh-high teds, bilateral SCDs, remained stable in recovery. Patient was [facility]. The patient's pain was managed with the use of IV and p.o. pain medications. Patient participated in physical therapy. Physical therapy restrictions include toe-touch weightbearing left lower extremity with a walker, posterior hip dislocation precautions for 3 months postoperatively, and abduction pillow while in bed. Patient did require blood transfusion secondary to acute on chronic anemia related to intraoperative blood loss. Patient was stable postoperatively with regards to her hemoglobin and was asymptomatic. Medicine was consulted and assisted with patient in her postoperative care. Patient was discharged on postoperative day #4 after her second surgery to transitional care unit [facility]. Patient was postoperative day #13 from her initial surgery on August 02, 2020. Patient was given medications stated below. Plan will be to repeat her CBC to continue to follow her acute on chronic anemia. She will also use Lovenox postoperatively for DVT prophylaxis and this will be adjusted to aspirin 81 mg twice daily at the 2-week follow-up. Patient will follow up with [facility] for 2-week follow-up with x-rays and incision check. - Physical Exam Vitals/I&O's: Vital Signs Temp Pulse Resp BP Pulse Ox 98.2 F 80 16 105/58 L 96 08/15/20 02:40 08/15/20 02:40 08/15/20 02:40 08/15/20 02:40 08/15/20 02:40 Oxygen Flow Rate (L/min) 2 Oxygen Delivery Method Room Air Weight: 87.2 kg Body Mass Index (BMI) 33.0 Intake and Output for Last 24 Hours 08/13/20 08/14/20 08/15/20 23:59 23:59 23:59 Intake Total 2200 / 2200 1800 / 1800 700 / 700 Output Total 2450 / 2450 2325 / 2325 1000 / 1000 Balance -250 / -250 -525 / -525 -300 / -300 Laboratory Results 08/14/20 06:05: Sodium 129 L, Potassium 4.2, Chloride 96 L, Carbon Dioxide 27.0, Anion Gap 6, BUN 12, Creatinine 0.46 L, Estim Creat Clear Calc 41.33, Est GFR (MDRD) Af Amer 168, Est GFR (MDRD) Non-Af 139, BUN/Creatinine Ratio 25.9 H, Glucose 89, Calcium 7.8 L Current Medications Acetaminophen (Tylenol) 1,000 mg PO Q8 [facility] Last Admin: 08/15/20 06:06 Dose: 1,000 mg Documented by: Atorvastatin Calcium (Lipitor) 20 mg PO QHS [facility] Last Admin: 08/14/20 22:54 Dose: 20 mg Documented by: Calamine/Phenol (Menthol/Lanolin/Calamine/Znox 113 Gm Tube) 1 applic TOPICAL BID [facility]; Protocol Last Admin: 08/14/20 22:54 Dose: 1 applicatio Documented by: Calcium/Vitamin D (Os-Santiago 500mg + D) 2 tablet PO DAILYCM [facility] Last Admin: 08/14/20 10:01 Dose: 2 tablet Documented by: Diphenhydramine HCl (Benadryl) 25 mg PO DAILY PRN PRN PRN Reason: ALLERGIES Last Admin: 08/13/20 10:10 Dose: 25 mg Documented by: Duloxetine HCl (Cymbalta) 60 mg PO DAILY [facility] Last Admin: 08/14/20 10:01 Dose: 60 mg Documented by: Enoxaparin Sodium (Enoxaparin 40 Mg/0.4 Ml Syringe) 40 mg SC DAILY@0600 [facility] Last Admin: 08/15/20 06:07 Dose: 40 mg Documented by: Famotidine (Pepcid) 20 mg PO DAILY [facility] Last Admin: 08/14/20 10:02 Dose: 20 mg Documented by: Ferrous Gluconate (Ferrous Gluconate) 324 mg PO DAILY@0800 [facility] Last Admin: 08/14/20 10:01 Dose: 324 mg Documented by: Sodium Chloride () 250 mls @ 15 mls/hr IV .[id number] PRN PRN Reason: Saline Flush Last Infusion: 08/12/20 13:52 Dose: Infused Documented by: Sodium Chloride () 250 mls @ 15 mls/hr IV .[id number] PRN PRN Reason: Additional IVPB Infusion Levothyroxine Sodium (Synthroid) 75 mcg PO DAILY@0600 [facility] Last Admin: 08/15/20 06:06 Dose: 75 mcg Documented by: Loperamide HCl (Imodium) 2 mg PO Q2H PRN PRN PRN Reason: diarrhea Losartan Potassium (Cozaar) 50 mg PO QHS [facility] Last Admin: 08/14/20 22:54 Dose: 50 mg Documented by: Morphine Sulfate () 2 - 4 mg IV Q2H PRN PRN PRN Reason: Pain Score 4-10/10 Last Admin: 08/03/20 16:49 Dose: 2 mg Documented by: Morphine Sulfate () 2 - 4 mg IV Q2H PRN PRN PRN Reason: Pain Score 4-10/10 Multivitamins (Multivitamin) 1 tablet PO DAILY@0800 [facility] Last Admin: 08/14/20 10:01 Dose: 1 tablet Documented by: Nutritional Formula (Lactose Free) (Ensure Enlive 120 Ml Liquid) 120 ml PO 4X/D AY [facility] Last Admin: 08/14/20 22:53 Dose: 120 ml Documented by: Ondansetron HCl (Zofran) 4 mg IV Q8H PRN PRN PRN Reason: NAUSEA Oxycodone HCl (Oxyir) 5 - 10 mg PO Q4H PRN PRN PRN Reason: Pain Score 4-10/10 Last Admin: 08/14/20 23:42 Dose: 10 mg Documented by: Pantoprazole Sodium (Protonix) 40 mg PO BID [facility] Last Admin: 08/14/20 22:54 Dose: 40 mg Documented by: Polyethylene Glycol (Polyethylene Glycol 3350 17 Gm Packet) 17 gm PO DAILY [facility] Last Admin: 08/14/20 10:02 Dose: Not Given Documented by: Senna/Docusate Sodium (Senokot-S, Sally-Colace) 2 tablet PO BID [facility] Last Admin: 08/14/20 22:54 Dose: 2 tablet Documented by: Sodium Chloride () 10 - 40 ml IV UD PRN PRN Reason: SALINE FLUSH Last Admin: 08/14/20 06:28 Dose: 10 ml Documented by: Zolpidem Tartrate (Ambien (Generic)) 5 mg PO QHS PRN PRN Reason: .INSOMNIA Last Admin: 08/14/20 22:57 Dose: 5 mg Documented by: Discharge Diet: No Restrictions Discharge Activity: May Not Drive - while taking narcotic pain medications. May shower in (days): 1 - Okay to shower and get dressing wet as long as dressing is intact to skin Ice area for (Minutes): 20 - Every 1-2 hours while awake Weight Bearing Status: Toe touch weight bearing - Left lower extremity with walker Keep extremity elevated above heart level: Operative Extremity Additional Activity Instructions:: Wear elastic stockings for 2 weeks. DO NOT use alcohol with narcotic pain medication. DO NOT make important decisions while taking narcotic medication. If you have problems with taking your medication (rash, itching, nausea, etc.) call the office at once. Call your doctor if your incision/area has: Increased Pain/ Swelling, Increased Redness, Foul Smelling Discharge Call your doctor if you observe: Fever of 101 or Higher Remove Dressing in (days):: 1 - Okay to remove dressing on August 16, 2020 Home Medications: Medications to take at Discharge Levothyroxine [Synthroid] 75 mcg PO DAILY 12/23/13 Esomeprazole Mag Trihydrate [Nexium] 40 mg PO BID 03/15/19 Losartan Potassium [Cozaar] 50 mg PO DAILY 03/15/19 diphenhydramine HCl 25 mg capsule 25 mg PO QDAY PRN cap 07/12/19 zolpidem 10 mg tablet 10 mg PO QHS PRN tab 07/12/19 duloxetine 60 mg capsule,delayed release 60 mg PO DAILY cap 07/13/19 multivitamin 1 tab PO DAILY 03/31/20 Calcium Carbonate/Vitamin D3 [Calcium 500-Vit D3 200 Tablet] 2 ea PO DAILY 07/19/20 Clopidogrel Bisulfate [Clopidogrel] 75 mg PO DAILY 07/19/20 Loperamide [Imodium] 2 mg PO Q2H PRN PRN 07/19/20 Rosuvastatin Calcium 10 mg PO DAILY 07/19/20 Ondansetron [Zofran] 4 mg IV Q8H PRN PRN vial 08/05/20 Oxycodone [Oxyir] 5 - 10 mg PO Q4H PRN PRN 4 Days #48 tab 08/05/20 Acetaminophen [Tylenol] 1,000 mg PO Q8 08/15/20 Aspirin [Aspirin, Baby] 81 mg PO BIDCM 08/15/20 Enoxaparin [Lovenox] 40 mg SC DAILY@0600 08/15/20 Ensure Enlive 120 ml PO 4X/DAY 08/15/20 Ensure Surgery 237 ml PO TIDCM 08/15/20 Ferrous Gluconate 324 mg PO DAILY@0800 08/15/20 Senna/Docusate Sodium [Senokot-S] 2 tab PO BID 08/15/20 Following Prescriptions Were Given to Patient: Oxycodone [Oxyir] 5 - 10 mg PO Q4H PRN PRN 4 Days #48 tab PRN Reason: Pain Score 4-08/05 Prescription Printed Primary Care Physician: Ayleen Tam MD [Primary Care Provider] - Please Follow Up With: Kervin Menjivar PA-C When: 08/25/20 will need scheduled appt for xrays and incision check Additional Instructions: Physical therapy/Occupational Therapy: Posterior hip dislocation precautions x3 months, toe-touch weightbearing left lower extremity for 2 weeks postoperatively. Continue with hip abduction pillow while in bed Medical Necessity - Tobacco Use Smoking Status: Former smoker Tobacco Use: Non-smoker Meaningful Use Info Meaningful Use Diagnoses (Choose all that apply): None applicable
--- NOTE | 2020-08-15 07:41 | PCM.PN.HOSP ---
Reason for Visit: Status post hip replacement Subjective: Patient hemoglobin stable at 7.5 sodium level did go up to 130. Patient medically stable to be transferred to [facility] Objective: GENERAL: Patient in no apparent distress HEENT: Atraumatic; EYES; Anicteric, Normal Conjunctiva NECK; supple, normal thyroid, RESPIRATORY: Diminished to auscultation CARDIOVASCULAR: Regular S1 S2, GI: soft, normoactive bowel sounds, : No Renal angle tenderness; EXTREMITIES: No edema, no clubbing, MUSCULOSKELETAL: no muscle waisting NEURO: Awake; no lateralizing signs. SKIN: No Rash PSYCH; Flat affect Vitals/I&O's: Vital Signs Temp Pulse Resp BP Pulse Ox 98.2 F 80 16 105/58 L 96 08/15/20 02:40 08/15/20 02:40 08/15/20 02:40 08/15/20 02:40 08/15/20 02:40 Oxygen Flow Rate (L/min) 2 Oxygen Delivery Method Room Air Weight: 87.2 kg Body Mass Index (BMI) 33.0 Intake and Output for Last 24 Hours 08/13/20 08/14/20 08/15/20 23:59 23:59 23:59 Intake Total 2200 / 2200 1800 / 1800 700 / 700 Output Total 2450 / 2450 2325 / 2325 1000 / 1000 Balance -250 / -250 -525 / -525 -300 / -300 Current Medications Acetaminophen (Tylenol) 1,000 mg PO Q8 [facility] Last Admin: 08/15/20 06:06 Dose: 1,000 mg Documented by: Atorvastatin Calcium (Lipitor) 20 mg PO QHS [facility] Last Admin: 08/14/20 22:54 Dose: 20 mg Documented by: Calamine/Phenol (Menthol/Lanolin/Calamine/Znox 113 Gm Tube) 1 applic TOPICAL BID [facility]; Protocol Last Admin: 08/14/20 22:54 Dose: 1 applicatio Documented by: Calcium/Vitamin D (Os-Santiago 500mg + D) 2 tablet PO DAILYCM [facility] Last Admin: 08/14/20 10:01 Dose: 2 tablet Documented by: Diphenhydramine HCl (Benadryl) 25 mg PO DAILY PRN PRN PRN Reason: ALLERGIES Last Admin: 08/13/20 10:10 Dose: 25 mg Documented by: Duloxetine HCl (Cymbalta) 60 mg PO DAILY [facility] Last Admin: 08/14/20 10:01 Dose: 60 mg Documented by: Enoxaparin Sodium (Enoxaparin 40 Mg/0.4 Ml Syringe) 40 mg SC DAILY@0600 [facility] Last Admin: 08/15/20 06:07 Dose: 40 mg Documented by: Famotidine (Pepcid) 20 mg PO DAILY [facility] Last Admin: 08/14/20 10:02 Dose: 20 mg Documented by: Ferrous Gluconate (Ferrous Gluconate) 324 mg PO DAILY@0800 [facility] Last Admin: 08/14/20 10:01 Dose: 324 mg Documented by: Sodium Chloride () 250 mls @ 15 mls/hr IV .[id number] PRN PRN Reason: Saline Flush Last Infusion: 08/12/20 13:52 Dose: Infused Documented by: Sodium Chloride () 250 mls @ 15 mls/hr IV .[id number] PRN PRN Reason: Additional IVPB Infusion Levothyroxine Sodium (Synthroid) 75 mcg PO DAILY@0600 [facility] Last Admin: 08/15/20 06:06 Dose: 75 mcg Documented by: Loperamide HCl (Imodium) 2 mg PO Q2H PRN PRN PRN Reason: diarrhea Losartan Potassium (Cozaar) 50 mg PO QHS [facility] Last Admin: 08/14/20 22:54 Dose: 50 mg Documented by: Morphine Sulfate () 2 - 4 mg IV Q2H PRN PRN PRN Reason: Pain Score 4-10/10 Last Admin: 08/03/20 16:49 Dose: 2 mg Documented by: Morphine Sulfate () 2 - 4 mg IV Q2H PRN PRN PRN Reason: Pain Score 4-10/10 Multivitamins (Multivitamin) 1 tablet PO DAILY@0800 [facility] Last Admin: 08/14/20 10:01 Dose: 1 tablet Documented by: Nutritional Formula (Lactose Free) (Ensure Enlive 120 Ml Liquid) 120 ml PO 4X/DAY [facility] Last Admin: 08/14/20 22:53 Dose: 120 ml Documented by: Ondansetron HCl (Zofran) 4 mg IV Q8H PRN PRN PRN Reason: NAUSEA Oxycodone HCl (Oxyir) 5 - 10 mg PO Q4H PRN PRN PRN Reason: Pain Score 4-10/10 Last Admin: 08/14/20 23:42 Dose: 10 mg Documented by: Pantoprazole Sodium (Protonix) 40 mg PO BID JAMI Last Admin: 08/14/20 22:54 Dose: 40 mg Documented by: Polyethylene Glycol (Polyethylene Glycol 3350 17 Gm Packet) 17 gm PO DAILY [facility] Last Admin: 08/14/20 10:02 Dose: Not Given Documented by: Senna/Docusate Sodium (Senokot-S, Sally-Colace) 2 tablet PO BID JAMI Last Admin: 08/14/20 22:54 Dose: 2 tablet Documented by: Sodium Chloride () 10 - 40 ml IV UD PRN PRN Reason: SALINE FLUSH Last Admin: 08/14/20 06:28 Dose: 10 ml Documented by: Zolpidem Tartrate (Ambien (Generic)) 5 mg PO QHS PRN PRN Reason: .INSOMNIA Last Admin: 08/14/20 22:57 Dose: 5 mg Documented by: Medical Necessity - Tobacco Use Smoking Status: Former smoker Tobacco Use: Non-smoker Assessment/Plan All Active Problems (Last Reviewed 03/31/20 @ 09:37 by Sylvie Cole) Pre-op examination (Acute) Abnormal nuclear stress test (Acute) 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) Status post right hip replacement (Resolved) Patient is a 74-year-old lady who underwent Left posterior robotic assisted total hip replacement on 08/02/2020. Patient did experience acute posterior dislocation left total hip replacement, for which she underwent Closed reduction under anesthesia left total hip replacement on 08/06/2020.. She underwent left revision posterior total hip replacement entire femoral and acetabular components on 08/11/2020 on account of Left hip instability status post total joint replacement and Left hip femoral subsidence 1. Status post left total hip replacement - underwent Left posterior robotic assisted total hip replacement on 08/02/2020. Patient did experience acute posterior dislocation left total hip replacement, for which she underwent Closed reduction under anesthesia left total hip replacement on 08/06/2020.. She underwent left revision posterior total hip replacement entire femoral and acetabular components on 08/11/2020 on account of Left hip instability status post total joint replacement and Left hip femoral subsidence -08/05/2020; plan is for patient to be transferred to the transitional care unit 2. Anemia - Secondary to combination of acute blood loss anemia from surgery as well as chronic disorder monitoring H&H. Patient has been transfused a total of 2 unit PRBC 07/06/2020; hemoglobin stable at 7.5 3. Coronary artery disease ?With previous history of PCI with EZEKIEL to proximal diagonal lesion on 07/16/2019. Patient is on dual antiplatelet therapy did continue 4. Hypothyroidism - Patient is on levothyroxine home dose continued 5. GERD on PPI 6. Hypertension - Blood pressure controlled, home medications continued with dose adjustment as needed 7. Dyslipidemia -Patient is on statin therapy, continued at home dose 8. Constipation ?Treated symptomatically 9. 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 Depression with anxiety -Patient is on Cymbalta 11. Obstructive sleep apnea ?Patient is on CPAP 12. DVT Prophylaxis -Lovenox daily Inpatient E&M: [id number] [facility] Hosp L2
[2020-08-15 08:06] LABS: Hemoglobin 7.5 g/dL (12.0-15.0); Mean Corpuscular Hgb 29.8 pg (27.0-32.0); Mean Corpuscular Volume 99.2 fL (81-99); Mean Platelet Vol. 8.8 fl (6.2-12.0); Platelet Count 280 K/mm3 (150-450); RBC Distribution Width CV 14.4 % (11.6-14.6); RBC Distribution Width SD 52.1 fl (35.1-43.9); Red Blood Count 2.52 M/mm3 (4.2-5.4); White Blood Count 6.3 K/mm3 (4.4-11.0)
[2020-08-15 08:08] VITALS: BP 121/67; PULSE 74; RESP 16; TEMP 36.6; O2SAT 97
[2020-08-15 08:08] LABS: Scan Indicated on CBC? Y/N NO
[2020-08-15] MEDS: Calcium Carb/Vitamin D 1 TABLET Tablet 2 TABLET PO (08:19)
[2020-08-15] MEDS: Ferrous Gluconate 324 MG Tablet PO (08:20)
[2020-08-15] MEDS: Multivitamins,Therapeutic Tablet 1 TABLET PO (08:20)
[2020-08-15 08:31] LABS: Anion Gap 5 (5-15); BUN 10 mg/dL (7-18); BUN/Creat Ratio 17.6 RATIO (10-20); Calcium,Total 8.1 mg/dL (8.5-10.1); Chloride 98 mmol/L (98-107); Creatinine, Serum 0.57 mg/dL (0.55-1.02); EST Glomerular Filtration Rate 110 mL/min (>60); Est Glom Filt Rate - Afr Amer 133 mL/min (>60); Estimated Creatinine Clearance 41.33 ml/min; Glucose 86 mg/dL (74-106); Magnesium 1.9 mg/dL (1.6-2.6); Potassium 4.2 mmol/L (3.5-5.1); Sodium Level 130 mmol/L (136-145)
--- NOTE | 2020-08-15 09:15 | CASEMGMT ---
Social Work Note AMAURY received message from Elin in TCU stating authorization has been received for pt and pt is able to admit to TCU today. AMAURY updated pt. 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
[2020-08-15] MEDS: Pantoprazole Sodium 40 MG Tablet PO (10:47)
[2020-08-15] MEDS: Famotidine 20 MG Tablet PO (10:47)
[2020-08-15] MEDS: DULoxetine Hcl 60 MG Capsule PO (10:47)
[2020-08-15] MEDS: Menthol/Lanolin/Calamine/Znox 113 GM Tube 1 APPLIC TOPICAL (10:49)
[2020-08-15] MEDS: oxyCODONE 5 MG Tablet PO (12:07)
[2020-08-15 13:31] VITALS: BP 117/72; PULSE 84; RESP 16; TEMP 36.9; O2SAT 98
== END 2020-08-15 15:05 | disposition skilled nursing facility (03) | DRG 467 ==
LOC: SDC 11:10 → MS3 11:10
PROVIDERS: Anesthesiology; Internal Medicine; Physician Assistant Surgical; Student in an Organized Health Care Education/Training Program; Admitting Provider Specialist; PCP Internal Medicine; Referring Provider Internal Medicine; Visit Provider Internal Medicine
PROC: 8E0Y0CZ Robotic Assisted Procedure of Lower Extremity, Open Approach (ICD-10-PCS; CPT 27130; principal; 2020-08-02 10:00)
PROC: 0SRB029 Replacement of Left Hip Joint with Metal on Polyethylene Synthetic Substitute, Cemented, Open Approach (ICD-10-PCS; CPT 27134; principal; 2020-08-11 12:35)
DX: M16.12 Unilateral primary osteoarthritis, left hip (principal); T84.021A Dislocation of internal left hip prosthesis, initial encounter; D62 Acute posthemorrhagic anemia; E22.2 Syndrome of inappropriate secretion of antidiuretic hormone; Y79.2 Prosthetic and other implants, materials and accessory orthopedic devices associated with adverse incidents; M21.752 Unequal limb length (acquired), left femur; M85.862 Other specified disorders of bone density and structure, left lower leg; Z11.59 Encounter for screening for other viral diseases; Z96.652 Presence of left artificial knee joint; M17.12 Unilateral primary osteoarthritis, left knee; K59.00 Constipation, unspecified; R29.810 Facial weakness; F41.8 Other specified anxiety disorders; I12.9 Hypertensive chronic kidney disease with stage 1 through stage 4 chronic kidney disease, or unspecified chronic kidney disease; N18.9 Chronic kidney disease, unspecified; D63.1 Anemia in chronic kidney disease; E78.5 Hyperlipidemia, unspecified; Z86.14 Personal history of Methicillin resistant Staphylococcus aureus infection; I25.10 Atherosclerotic heart disease of native coronary artery without angina pectoris; G47.33 Obstructive sleep apnea (adult) (pediatric); E03.9 Hypothyroidism, unspecified; K21.9 Gastro-esophageal reflux disease without esophagitis; Z95.5 Presence of coronary angioplasty implant and graft; Z79.02 Long term (current) use of antithrombotics/antiplatelets; Z79.82 Long term (current) use of aspirin; Z79.899 Other long term (current) drug therapy; Z87.891 Personal history of nicotine dependence; Z91.19 Patient's noncompliance with other medical treatment and regimen
CPT/HCPCS: 36415; 72170; 73502; 76000; 80048; 82962; 83735; 84443; 85025; 85027; 86850; 86900; 86901; 86920; 86922; 87015; 87070; 87075; 87102; 87116; 87176; 87205; 87206; 87635; 88305; 88311; 93005; 97110; 97116; 97162; 97164; 97166; 97168; 97530; 97535; 99251; C1713; C1776; C9803; J7040; J7050; J7120; P9016; A4216; G0463; J2405; U0003

== ENCOUNTER 2020-08-15 15:08 | Inpatient (IN) | payer MEDICARE, MEDICAID, SELFPAY ==
[2019-07-16 11:02] VITALS: BMI 34.8
[2020-08-11 12:01] VITALS: BMI 33.0
[2020-08-15 15:18] VITALS: BP 124/72; PULSE 65; RESP 18; TEMP 36.6; O2SAT 97; BMI 36.9
[2020-08-15 15:26] VITALS: BMI 37.0
--- NOTE | 2020-08-15 15:54 | NURSING ---
removed RT AC saline lock, slightly red. drsg applied. no active bleeding. old dried blood on drsg.
[2020-08-15 17:02] VITALS: PULSE 92; RESP 16; O2SAT 99
[2020-08-15] MEDS: Aspirin 81 MG TAB.CHEW PO (18:29)
[2020-08-15] MEDS: Pantoprazole Sodium 40 MG Tablet PO (18:29)
--- NOTE | 2020-08-15 19:32 | HP.PCM_ITS ---
Problem List (1) Debility Status: Acute (2) Osteoarthritis of right hip Status: Chronic (3) Syncope Status: Acute (4) Postoperative anemia Status: Acute (5) Dislocation of internal left hip prosthesis Status: Acute (6) SIADH (syndrome of inappropriate ADH production) Status: Acute (7) Hyponatremia Status: Acute (8) MRSA (methicillin resistant Staphylococcus aureus) Status: Chronic (9) Sleep apnea Status: Chronic (10) Coronary artery disease Status: Chronic (11) Hypertension Status: Chronic (12) Hypothyroidism Status: Chronic (13) GERD (gastroesophageal reflux disease) Status: Chronic (14) Depression Status: Chronic History of Present Illness Date of Admission: 08/15/20 Chief Complaint: Here for rehabilitation, strengthening, prior to discharge home alone. 07/26/20 EKG normal sinus rhythm, left anterior fascicular block, abnormal EKG. 08/02/20 The patient is a 74 year old Female with below past medical history underwent left posterior robotic assisted total hip replacement per Orthopedics. 08/02/20 Vasovagal syncope treated with IV fluid bolus, cardiac monitoring. 08/02/20 c/o double vision, stroke unlikely. 08/03/20 Transfused 2 units PRBC. 08/04/20 Pain well controlled with IV morphine, PO oxycodone, Tylenol. Hemoglobin 8.8. Aspirin 81MG BID for DVT prophylaxis thru 08/30/20. PT/OT recommended shelter facility (TCU). 08/06/20 Patient developed acute posterior dislocation left total hip replacement. Orthopedics performed closed reduction left total hip replacement for dislocation. 08/11/20 Orthopedics performed left revision posterior left total hip replacement, entire femoral and acetabular components for left hip instability. 08/11/20 Mild stable hyponatremia. Transfused 2 units PRBC for postoperative anemia. Hyponatremia secondary to SIADH, managed with fluid restriction. 08/15/20 Admit to TCU with debility, here for rehabilitation, strengthening, prior to discharge home alone. Past Medical History Past Medical History (Chronic Problems): Chronic Problems (Last Reviewed 03/31/20 @ 09:37 by Sylvie Cole) Osteoarthritis of right hip (Chronic) MRSA (methicillin resistant Staphylococcus aureus) (Chronic) Sleep apnea (Chronic) Coronary artery disease (Chronic) Stented coronary artery (Chronic 07/16/19) 2.5 X 16 Promus Synergy EZEKIEL to Proximal Diag #1 per DJN @ [facility], 07/16/2019 Atherosclerosis of coronary artery of [place] heart without angina pectoris (Chronic) Hypertension (Chronic) Obstructive sleep apnea (Chronic) Per sleep study done 05/02/2016 Dr. 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 Oc Chan Medical History: Medical History (Last Reviewed 03/31/20 @ 09:37 by Sylvie Cole) Atherosclerosis of coronary artery of [place] heart without angina pectoris (Chronic) I25.10 Abnormal nuclear stress test (Acute) R94.39 Mild apical and distal anterior ischemia per Pharm Nuc stress test done 07/01/2019 @[facility] Obstructive sleep apnea (Chronic) G47.33 Per sleep study done 05/02/2016 Dr. Emamnuel Barnett [facility] Allergies cat dander Allergy (Intermediate, Verified 08/02/20 09:02) nasal congestion ciprofloxacin [From Cipro] Allergy (Verified 08/02/20 09:02) Hives ciprofloxacin HCl [From Cipro] Allergy (Verified 08/02/20 09:02) Hives clindamycin Allergy (Verified 08/02/20 09:02) Rash doxycycline Allergy (Verified 08/02/20 09:02) Other latex Allergy (Verified 08/02/20 09:02) Hives nitrofurantoin [From Macrobid] Allergy (Verified 08/02/20 09:02) Other Penicillins Allergy (Verified 08/02/20 09:02) Shortness of breath vortioxetine [From Brintellix] Adverse Reaction (Intermediate, Verified 08/02/20 09:02) GI upset methotrexate Adverse Reaction (Unknown, Verified 08/02/20 09:02) unknown trazodone Adverse Reaction (Verified 08/02/20 09:02) Other [place] [employer]EL[employer] Home Medications: Ambulatory Orders Medication Instructions Recorded Levothyroxine [Synthroid] 75 mcg PO DAILY 12/23/13 Esomeprazole Mag Trihydrate 40 mg PO BID 03/15/19 [Nexium] Losartan Potassium [Cozaar] 50 mg PO DAILY 03/15/19 diphenhydramine HCl 25 mg capsule 25 mg PO QDAY PRN cap 07/12/19 zolpidem 10 mg tablet 10 mg PO QHS PRN tab 07/12/19 duloxetine 60 mg capsule,delayed 60 mg PO DAILY cap 07/13/19 release multivitamin 1 tab PO DAILY 03/31/20 Calcium Carbonate/Vitamin D3 2 ea PO DAILY 07/19/20 [Calcium 500-Vit D3 200 Tablet] Clopidogrel Bisulfate [Clopidogrel] 75 mg PO DAILY 07/19/20 Loperamide [Imodium] 2 mg PO Q2H PRN PRN 07/19/20 Rosuvastatin Calcium 10 mg PO DAILY 07/19/20 Ondansetron [Zofran] 4 mg IV Q8H PRN PRN vial 08/05/20 Oxycodone [Oxyir] 5 - 10 mg PO Q4H PRN PRN 4 Days 08/05/20 #48 tab Acetaminophen [Tylenol] 1,000 mg PO Q8 08/15/20 Aspirin [Aspirin, Baby] 81 mg PO BIDCM 08/15/20 Enoxaparin [Lovenox] 40 mg SC DAILY@0600 08/15/20 Ensure Enlive 120 ml PO 4X/DAY 08/15/20 Ensure Surgery 237 ml PO TIDCM 08/15/20 Ferrous Gluconate 324 mg PO DAILY@0800 08/15/20 Senna/Docusate Sodium [Senokot-S] 2 tab PO BID 08/15/20 Surgical History: Surgical History (Last Reviewed 03/31/20 @ 09:37 by Sylvie Cole) Stented coronary artery (Chronic) Onset Date: 07/16/19 Z95.5 2.5 X 16 Promus Synergy EZEKIEL to Proximal Diag #1 per DJN @ [facility], 07/16/2019 Surgical History: angioplasty - Stent., cataract - Bilateral., cholecystectomy, total hip arthroplasty - Bilateral., total knee arthroplasty - Left, hardware removed., tonsillectomy, - - Left tib/fib luis, closed reduction left total hip replacement, revision left total hip replacement. 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 Lives: Alone Smoking Status: Former smoker Tobacco Use: Non-smoker Alcohol: Occasional Drugs: None - *Family History Paternal Family History: Family History (Last Reviewed 03/31/20 @ 09:37 by Sylvie Cole) Father Hodgkin disease Mother Lung cancer History Items: Cancer Maternal Family History: Family History (Last Reviewed 03/31/20 @ 09:37 by Sylvie Cloe) Father Hodgkin disease Mother Lung cancer History Items: Hypertension Review of Systems Constitutional: Denies: Chills, Fever, Weight Change HEENT: Denies: Head Aches, Sinus Congestion, Sinus Drainage Cardiovascular: Denies: Chest Pain, Palpitations Respiratory: Denies: Cough, Shortness of breath at rest, Sputum production Gastrointestinal: Denies: Abdominal Pain, Nausea, Vomiting Genitourinary: Denies: Dysuria Musculoskeletal: Denies: Joint Pain, Joint Tenderness Skin: Denies: Rash, Wounds Neurological: Denies: Numbness, Tingling, Focal weakness Psychiatric: Denies: Anxiety, Depression, Homicidal Ideations, Suicidal Ideations Hematologic/ Lymphatic: Denies: Easy Bruising, Easy Bleeding VTE Information - Inpt Only VTE Present on Admission: No VTE Mechan Device Prophylaxis: Knee High RILEY Hose VTE Pharm Prophylaxis ordered?: Yes Patient Problems: Active and Suspected Problems (Last Reviewed 03/31/20 @ 09:37 by Sylvie Cole) Debility (Acute) Syncope (Acute) Postoperative anemia (Acute) Dislocation of internal left hip prosthesis (Acute) SIADH (syndrome of inappropriate ADH production) (Acute) Hyponatremia (Acute) - Physical Exam Vitals/I&O's: Vital Signs Temp Pulse Resp BP Pulse Ox 97.8 F 92 16 124/72 H 99 08/15/20 15:18 08/15/20 17:02 08/15/20 17:02 08/15/20 15:18 08/15/20 17:02 Oxygen Delivery Method Room Air Weight: 97.664 kg Body Mass Index (BMI) 36.9 General: Alert, Oriented x3, Cooperative HEENT: Atraumatic, PERRLA, EOMI, Normocephalic Neck: Supple, No JVD, Negative Carotid Bruits Lungs: Clear to auscultation, Normal air movement Cardiovascular: Regular rate, No murmurs Abdomen: Bowel Sounds Present, Soft, Non Tender Extremities: No edema, Capillary Refill Less than 3 Seconds Skin: No rashes, No breakdown Musculoskeletal: No Tenderness to Palpation of Joints or Extremities Neurological: Cranial nerves II-XII grossly intact Psych/Mental Status: Normal Affect, Appropriate Laboratory Results 08/15/20 16:30: COVID-19 (YESSENIA) Pending Current Medications Acetaminophen (Acetaminophen 500 Mg Tablet) 1,000 mg PO Q8 [facility] Aspirin (A[facility] 81 Mg [facility].Chew) [facility] Stop: 09/12/20 08:01 Last Admin: 08/15/20 18:29 Dose: 81 mg Documented by: Atorvastatin Calcium (Atorvastatin Calcium 20 Mg Tablet) 20 mg PO QHS [facility] Calcium/Vitamin D (Calcium Carb/Vitamin D 1 Tablet Tablet) [facility] Clopidogrel Bisulfate (Clopidogrel Bisulfate 75 Mg Tablet) 75 mg PO DAILY [facility] Diphenhydramine HCl (Diphenhydramine 25 Mg Capsule) 25 mg PO DAILY PRN PRN PRN Reason: allergies Duloxetine HCl (Duloxetine Hcl 60 Mg Capsule) 60 mg PO DAILY [facility] Ferrous Gluconate (Ferrous Gluconate 324 Mg Tablet) 324 mg PO DAILY@0800 [facility] Levothyroxine Sodium (Levothyroxine 75 Mcg Tablet) 75 mcg PO DAILY@0600 [facility] Loperamide HCl (Loperamide 2 Mg Capsule) 2 mg PO Q2H PRN PRN PRN Reason: diarrhea Losartan Potassium (Losartan Potassium 50 Mg Tablet) 50 mg PO DAILY [facility] Multivitamins (Multivitamins,Therapeutic Tablet) [facility] Nutritional Formula (Lactose Free) (Ensure Enlive 120 Ml Liquid) 120 ml PO 4X/DAY [facility] Last Admin: 08/15/20 18:28 Dose: 120 ml Documented by: Ondansetron HCl (Ondansetron 4 Mg/2 Ml Vial) 4 mg IV Q8H PRN PRN PRN Reason: NAUSEA Oxycodone HCl (Oxycodone 5 Mg Tablet) 5 - 10 mg PO Q4H PRN PRN PRN Reason: Pain Score 4-10 Pantoprazole Sodium (Pantoprazole Sodium 40 Mg Tablet) 40 mg PO BID [facility] Last Admin: 08/15/20 18:29 Dose: 40 mg Documented by: Senna/Docusate Sodium (Senna/Docusate Sodium 1 Tablet) 1 - 2 tablet PO BID PRN PRN Reason: Constipation Sodium Chloride (0.9% Saline Lock 10 Ml Syringe) 10 - 40 ml IV UD PRN PRN Reason: SALINE FLUSH Tuberculin PPD (Tuberculin,Purif.Prot.Deriv. 50 Tu/Ml Vial) 5 tu ID X1 ONE Stop: 08/16/20 10:01 Tuberculin PPD (Tuberculin,Purif.Prot.Deriv. 50 Tu/Ml Vial) 5 tu ID X1 ONE Stop: 08/23/20 10:01 Zolpidem Tartrate (Zolpidem Tartrate 5 Mg Tablet) 5 mg PO QHS PRN PRN Reason: .INSOMNIA Assessment/Plan All Active Problems (Last Reviewed 03/31/20 @ 09:37 by Sylvie Cole) Debility (Acute) Syncope (Acute) Postoperative anemia (Acute) Dislocation of internal left hip prosthesis (Acute) SIADH (syndrome of inappropriate ADH production) (Acute) Hyponatremia (Acute) Pre-op examination (Acute) Abnormal nuclear stress test (Acute) 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) Status post right hip replacement (Resolved) 74 year old female with below past medical history hospitalized for left total hip replacement, complicated by dislocation, requiring revision left total hip replacement, complicated by syncope, postoperative anemia, hyponatremia secondary to SIADH, admitted to TCU with debility, here for rehabilitation, strengthening, prior to discharge home alone. * Debility - PT/OT. * Pain - Tylenol 1000MG Q8H, Oxycodone 10MG Q4H PRN pain (4-10). * Bowel - Miralax 17GM daily, Senna/colace 2 tablets BID, MOM 30ML daily PRN constipation, Dulcolax 10MG IA daily PRN, X-ray of abdomen to evaluate stool burden. * Adult immunization - Administer Prevnar 13, Pneumovax 23, Fluzone as appropriate. * DVT prophylaxis - Aspirin 81MG BID thru 09/12/20. * Hyperlipidemia - Atorvastatin 20MG QHS. * Calcium deficiency - Calcium D 2 tablets daily. * Coronary Artery Disease - Losartan 50MG daily, Plavix 75MG daily, Aspirin 81MG BID. 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 * Nutrition - Ensure Enlive 120ML 4x/day, MVI 1 tab daily. * Iron deficiency anemia - Ferrex 150MG daily. * Hypothyroidism - Levothyroxine 75MCG daily. * Nausea - Zofran 4MG IV Q8H PRN. * GERD - Pantoprazole 40MG BID. * Insomnia - Zolpidem 5MG QHS PRN.
[2020-08-15] MEDS: Acetaminophen 500 MG Tablet 1000 MG PO (20:15)
[2020-08-15] MEDS: Atorvastatin Calcium 20 MG Tablet PO (20:15)
--- NOTE | 2020-08-15 20:23 | NURSING ---
2020- Pt refusing KUB states she had 2 BMs today and per her home routine uses a fleets enema about every other day at home. States constipation is chronic since a gallbladder removal. Dr. Sal notified and new orders received.
[2020-08-15] MEDS: oxyCODONE 5 MG Tablet 10 MG PO (22:02)
[2020-08-15] MEDS: Zolpidem Tartrate 5 MG Tablet PO (22:03)
[2020-08-16 05:46] LABS: Absolute Neutrophil Count 3.1 X10^3/uL (2.0-7.7); Basophil# 0.02 X10^3/uL; Basophil% 0.4 % (0-1); Eosinophil# 0.36 X10^3/uL; Eosinophils% 6.7 % (0-5); Hematocrit 23.1 % (37-47); Hemoglobin 7.3 g/dL (12.0-15.0); Lymphocyte % 20.4 % (19-41); Mean Corp Hgb Conc 31.6 g/dL (32-36); Mean Corpuscular Hgb 29.8 pg (27.0-32.0); Mean Corpuscular Volume 94.3 fL (81-99); Mean Platelet Vol. 8.4 fl (6.2-12.0); Monocyte# 0.75 X10^3/uL; Monocyte% 13.9 % (0-10); NRBC Flagged by Analyzer 0 % (0-5); Neutrophil # 3.09 X10^3/uL (2.7-7.7); Neutrophil % 57.1 % (47-70); Platelet Count 303 K/mm3 (150-450); RBC Distribution Width CV 14.6 % (11.6-14.6); RBC Distribution Width SD 50.4 fl (35.1-43.9); Red Blood Count 2.45 M/mm3 (4.2-5.4); White Blood Count 5.4 K/mm3 (4.4-11.0)
[2020-08-16 06:15] LABS: Anion Gap 8 (5-15); BUN 11 mg/dL (7-18); BUN/Creat Ratio 20.2 RATIO (10-20); Calcium,Total 8.1 mg/dL (8.5-10.1); Chloride 96 mmol/L (98-107); Creatinine, Serum 0.54 mg/dL (0.55-1.02); EST Glomerular Filtration Rate 115 mL/min (>60); Est Glom Filt Rate - Afr Amer 140 mL/min (>60); Estimated Creatinine Clearance 41.33 ml/min; Glucose 84 mg/dL (74-106); Potassium 4.1 mmol/L (3.5-5.1); Sodium Level 131 mmol/L (136-145)
[2020-08-16 06:31] VITALS: BP 103/43; PULSE 81; RESP 16; TEMP 36.5; O2SAT 94
[2020-08-16] MEDS: Acetaminophen 500 MG Tablet 1000 MG PO ×3 (06:38→22:32)
[2020-08-16] MEDS: Losartan Potassium 50 MG Tablet PO (06:38)
[2020-08-16] MEDS: DULoxetine Hcl 60 MG Capsule PO (06:38)
[2020-08-16] MEDS: Levothyroxine 75 MCG Tablet PO (06:39)
[2020-08-16] MEDS: Clopidogrel Bisulfate 75 MG Tablet PO (06:39)
[2020-08-16] MEDS: Pantoprazole Sodium 40 MG Tablet PO ×2 (06:39→17:58)
--- NOTE | 2020-08-16 08:11 | NURSING ---
dr patel aware of HGB this AM, new order to transfuse 2 units PRBC's tomorrow. will update infusion center.
[2020-08-16] MEDS: Calcium Carb/Vitamin D 1 TABLET Tablet 2 TABLET PO (08:17)
[2020-08-16] MEDS: Multivitamins,Therapeutic Tablet 1 TABLET PO (08:17)
[2020-08-16] MEDS: Iron Polysaccharide Complex 150 MG CAPSULE PO (08:17)
[2020-08-16] MEDS: Aspirin 81 MG TAB.CHEW PO ×2 (08:17→16:07)
[2020-08-16] MEDS: oxyCODONE 5 MG Tablet 10 MG PO ×2 (09:55→22:32)
[2020-08-16] MEDS: Tuberculin,Purif.prot.deriv. 50 TU/ML Vial 5 ML ID (10:53)
[2020-08-16 13:41] VITALS: BP 113/60; PULSE 80; RESP 17; TEMP 36.6; O2SAT 96
--- NOTE | 2020-08-16 15:16 | CASEMGMT ---
Social Work Discussed code status with pt. Pt confirmed DNR-CC. MOLST form reviewed and placed in chart. Chelle Cardona, [employer] COUNSELOR
[2020-08-16] MEDS: Calcium Carb/Vitamin D 1 TABLET Tablet PO (16:07)
[2020-08-16 22:30] VITALS: PULSE 83; RESP 16; O2SAT 94
[2020-08-16] MEDS: Zolpidem Tartrate 5 MG Tablet PO (22:31)
[2020-08-16] MEDS: Atorvastatin Calcium 20 MG Tablet PO (22:33)
--- NOTE | 2020-08-17 00:49 | NURSING ---
Siverlon dressing removed per doctor order from left hip no drainage, no edema, sutures intact.
[2020-08-17 04:00] VITALS: BP 104/53; PULSE 82; RESP 16; TEMP 36.9; O2SAT 94
[2020-08-17] MEDS: Acetaminophen 500 MG Tablet 1000 MG PO ×3 (06:30→22:18)
[2020-08-17] MEDS: Clopidogrel Bisulfate 75 MG Tablet PO (06:30)
[2020-08-17] MEDS: Pantoprazole Sodium 40 MG Tablet PO ×2 (06:31→17:38)
[2020-08-17] MEDS: Levothyroxine 75 MCG Tablet PO (06:31)
[2020-08-17] MEDS: Losartan Potassium 50 MG Tablet PO (06:31)
[2020-08-17] MEDS: DULoxetine Hcl 60 MG Capsule PO (06:31)
[2020-08-17] MEDS: Iron Polysaccharide Complex 150 MG CAPSULE PO (08:29)
[2020-08-17] MEDS: Multivitamins,Therapeutic Tablet 1 TABLET PO (08:29)
[2020-08-17] MEDS: Aspirin 81 MG TAB.CHEW PO ×2 (08:29→17:38)
[2020-08-17] MEDS: Calcium Carb/Vitamin D 1 TABLET Tablet PO ×2 (08:29→17:38)
[2020-08-17] MEDS: oxyCODONE 5 MG Tablet 10 MG PO ×2 (08:31→22:25)
--- NOTE | 2020-08-17 11:23 | NURSING ---
pt left by wheel chair to infusion center at 8:50am.
--- NOTE | 2020-08-17 15:21 | NURSING ---
pt returned to floor by wheel chair at 1500.
--- NOTE | 2020-08-17 15:26 | PCM.PN.RX ---
<Angela Dill - Last Filed: 08/17/20 15:44> Progress Note - Pharmacy Subjective: TCU Admission Objective: Allergies cat dander Allergy (Intermediate, Verified 08/02/20 09:02) nasal congestion ciprofloxacin [From Cipro] Allergy (Verified 08/02/20 09:02) Hives ciprofloxacin HCl [From Cipro] Allergy (Verified 08/02/20 09:02) Hives clindamycin Allergy (Verified 08/02/20 09:02) Rash doxycycline Allergy (Verified 08/02/20 09:02) Other latex Allergy (Verified 08/02/20 09:02) Hives nitrofurantoin [From Macrobid] Allergy (Verified 08/02/20 09:02) Other Penicillins Allergy (Verified 08/02/20 09:02) Shortness of breath vortioxetine [From Brintellix] Adverse Reaction (Intermediate, Verified 08/02/20 09:02) GI upset methotrexate Adverse Reaction (Unknown, Verified 08/02/20 09:02) unknown trazodone Adverse Reaction (Verified 08/02/20 09:02) Other [place] FEELING Current Medications Generic Name Dose Route Start Last Admin Trade Name Freq PRN Reason Stop Dose Admin Acetaminophen 1,000 mg 08/15/20 22:00 08/17/20 15:11 Acetaminophen 500 Mg Tablet PO 1,000 mg Q8 JAMI Administration Aspirin 81 mg 08/15/20 17:00 08/17/20 08:29 Aspirin 81 Mg Tab.Chew PO 09/12/20 08:01 81 mg BIDCM JAMI Administration Atorvastatin Calcium 20 mg 08/15/20 22:00 08/16/20 22:33 Atorvastatin Calcium 20 Mg Tablet PO 20 mg QHS JAMI Administration Bisacodyl 10 mg 08/16/20 08:01 Bisacodyl 10 Mg Suppository RECTAL DAILY PRN Constipation Bisacodyl 10 mg 08/16/20 08:01 Bisacodyl 5 Mg Tablet PO DAILY PRN Constipation Calcium/Vitamin D 1 tablet 08/16/20 17:00 08/17/20 08:29 Calcium Carb/Vitamin D 1 Tablet Tablet PO 1 tablet BIDCM JAMI Administration Clopidogrel Bisulfate 75 mg 08/16/20 06:00 08/17/20 06:30 Clopidogrel Bisulfate 75 Mg Tablet PO 75 mg DAILY JAMI Administration Duloxetine HCl 60 mg 08/16/20 06:00 08/17/20 06:31 Duloxetine Hcl 60 Mg Capsule PO 60 mg DAILY [facility] Administration Levothyroxine Sodium 75 mcg 08/16/20 06:00 08/17/20 06:31 Levothyroxine 75 Mcg Tablet PO 75 mcg DAILY@0600 [facility] Administration Losartan Potassium 50 mg 08/16/20 06:00 08/17/20 06:31 Losartan Potassium 50 Mg Tablet PO 50 mg DAILY JAMI Administration Magnesium Hydroxide 30 ml 08/16/20 08:00 Magnesium Hydroxide 30 Ml Udc PO DAILY PRN Constipation Multivitamins 1 tablet 08/16/20 08:00 08/17/20 08:29 Multivitamins,Therapeutic Tablet PO 1 tablet DAILYCM [facility] Administration Nutritional Formula (Lactose Free) 120 ml 08/15/20 17:00 08/17/20 11:24 Ensure Enlive 120 Ml Liquid PO Not Given 4X/DAY [facility] Ondansetron HCl 4 mg 08/15/20 15:35 Ondansetron 4 Mg/2 Ml Vial IV Q8H PRN PRN NAUSEA Oxycodone HCl 10 mg 08/15/20 19:54 08/17/20 08:31 Oxycodone 5 Mg Tablet PO 10 mg Q4H PRN PRN Administration Pain Score 4-10 Pantoprazole Sodium 40 mg 08/15/20 18:00 08/17/20 06:31 Pantoprazole Sodium 40 Mg Tablet PO 40 mg BID [facility] Administration Polyethylene Glycol 17 gm 08/16/20 08:00 Polyethylene Glycol 3350 17 Gm Packet PO BID PRN Constipation Polysaccharide Iron Complex 150 mg 08/16/20 08:00 08/17/20 08:29 Iron Polysaccharide Complex 150 Mg [facility] Administration Senna/Docusate Sodium 2 tablet 08/16/20 08:00 Senna/Docusate Sodium 1 Tablet PO BID PRN Constipation Sodium Chloride 10 - 40 ml 08/15/20 15:23 0.9% Saline Lock 10 Ml Syringe IV UD PRN SALINE FLUSH Tuberculin PPD 5 tu 08/23/20 10:00 Tuberculin,Purif.Prot.Deriv. 50 Tu/Ml Vial ID 08/23/20 10:01 X1 ONE Zolpidem Tartrate 5 mg 08/15/20 15:47 08/16/20 22:31 Zolpidem Tartrate 5 Mg Tablet PO 5 mg QHS PRN Administration .INSOMNIA Problem List (Last Reviewed 03/31/20 @ 09:37 by Sylvie Cole) Debility (Acute) Osteoarthritis of right hip (Chronic) Syncope (Acute) Postoperative anemia (Acute) Dislocation of internal left hip prosthesis (Acute) SIADH (syndrome of inappropriate ADH production) (Acute) Hyponatremia (Acute) MRSA (methicillin resistant Staphylococcus aureus) (Chronic) Sleep apnea (Chronic) Coronary artery disease (Chronic) Hypertension (Chronic) Hypothyroidism (Chronic) GERD (gastroesophageal reflux disease) (Chronic) Depression (Chronic) Vital Signs Temp Pulse Resp BP Pulse Ox 98.5 F 82 16 104/53 L 94 08/17/20 04:00 08/17/20 04:00 08/17/20 04:00 08/17/20 04:00 08/17/20 04:00 Oxygen Delivery Method Room Air Weight: 97.664 kg Body Mass Index (BMI) 36.9 Sodium 131 mmol/L (136-145) L 08/16/20 05:20 Potassium 4.1 mmol/L (3.5-5.1) 08/16/20 05:20 Chloride 96 mmol/L (98-107) L 08/16/20 05:20 Carbon Dioxide 27.0 mmol/L (21.0-32.0) 08/16/20 05:20 Anion Gap 8 (5-15) 08/16/20 05:20 BUN 11 mg/dL (7-18) 08/16/20 05:20 Creatinine 0.54 mg/dL (0.55-1.02) L 08/16/20 05:20 Est GFR (MDRD) Af Amer 140 mL/min (>60) 08/16/20 05:20 Est GFR (MDRD) Non-Af 115 mL/min (>60) 08/16/20 05:20 BUN/Creatinine Ratio 20.2 RATIO (10-20) H 08/16/20 05:20 Glucose 84 mg/dL (74-106) 08/16/20 05:20 Assessment/Plan: 1. Pain: acetaminophen 1000mg PO Q8H and Oxycodone 10mg PO Q4H PRN pain score 4-10/10. Please monitor for improvement/worsening of pain and PRN usage. 2. DVT prophylaxis: aspirin 81mg PO BID until 09/12/20, please monitor for S/S of bleeding/DVT and hemoglobin. *3. Hyperlipidemia: atorvastatin 20mg PO QHS. Please consider ordering a lipid panel. Last panel from 06/2019. Please continue to monitor for muscle pain. 4. Coronary Artery Disease: clopidogrel 75mg PO daily and losartan 50mg PO daily. Please monitor for S/S bleeding/bruising, BP (Last BP 08/17/20 ;104/53), and renal function. *5. Hypothyroidism: Levothyroxine 75mcg PO daily. Please consider ordering a TSH level (last level from 2015). Thanks. 6. Iron Deficiency anemia: Ferrex 150mg PO daily. Please continue to monitor hemoglobin (last 7.3 g/dL) and for dark stools. 7. GERD/Nausea: pantoprazole 40mg PO BID and ondansetron 4mg IV Q8H PRN nausea. Please monitor for improvement/worsening of GERD/nausea and PRN usage. 8. Insomnia: zolpidem 5mg PO QHS PRN insomnia. Please continue to monitor for excessive drowsiness and PRN usage. *9. Calcium deficiency : Calcium/Vitamin D 1 tablet PO BID , please monitor calcium levels (last level 08/16/20 8.1 mg/dL) and vitamin D levels. Please consider ordering a vitamin D level. Patient does not have one in the chart. Thanks. 10. Nutrition: MVI 1 Tablet PO daily. Please continue to monitor. Psychotropic Medications: 1. Depression: duloxetine 60mg PO daily. Please refer to physician?s note for GDR recommendation. Unnecessary Medications: None *Bowel Regimen: bisacodyl 10mg VA daily PRN constipation, Bisacodyl 10 mg PO daily PRN constipation, Magnesium hydroxide 30mL PO daily PRN constipation, Miralax 17gm PO BID PRN constipation , Senna/Docusate 2 tablets PO BID PRN constipation. Please monitor for S/S diarrhea/constipation and PRN usage. Please consider stopping either the PO or rectal bisacodyl to remove the duplication. Thanks. Date of Note:: 08/17/20 - Provider Comments Provider responsibility: Provider responsible to enter orders to implement recommendations <Jose Juan Sal Chi - Last Filed: 08/17/20 16:35> Progress Note - Pharmacy Subjective: [] Objective: Allergies cat dander Allergy (Intermediate, Verified 08/02/20 09:02) nasal congestion ciprofloxacin [From Cipro] Allergy (Verified 08/02/20 09:02) Hives ciprofloxacin HCl [From Cipro] Allergy (Verified 08/02/20 09:02) Hives clindamycin Allergy (Verified 08/02/20 09:02) Rash doxycycline Allergy (Verified 08/02/20 09:02) Other latex Allergy (Verified 08/02/20 09:02) Hives nitrofurantoin [From Macrobid] Allergy (Verified 08/02/20 09:02) Other Penicillins Allergy (Verified 08/02/20 09:02) Shortness of breath vortioxetine [From Brintellix] Adverse Reaction (Intermediate, Verified 08/02/20 09:02) GI upset methotrexate Adverse Reaction (Unknown, Verified 08/02/20 09:02) unknown trazodone Adverse Reaction (Verified 08/02/20 09:02) Other [place] FEELING Current Medications Generic Name Dose Route Start Last Admin Trade Name Freq PRN Reason Stop Dose Admin Acetaminophen 1,000 mg 08/15/20 22:00 08/17/20 15:11 Acetaminophen 500 Mg Tablet PO 1,000 mg Q8 JAMI Administration Aspirin 81 mg 08/15/20 17:00 08/17/20 08:29 Aspirin 81 Mg Tab.Chew PO 09/12/20 08:01 81 mg BIDCM JAMI Administration Atorvastatin Calcium 20 mg 08/15/20 22:00 08/16/20 22:33 Atorvastatin Calcium 20 Mg Tablet PO 20 mg QHS JAMI Administration Bisacodyl 10 mg 08/16/20 08:01 Bisacodyl 10 Mg Suppository RECTAL DAILY PRN Constipation Bisacodyl 10 mg 08/16/20 08:01 Bisacodyl 5 Mg Tablet PO DAILY PRN Constipation Calcium/Vitamin D 1 tablet 08/16/20 17:00 08/17/20 08:29 Calcium Carb/Vitamin D 1 Tablet Tablet PO 1 tablet BIDCM JAMI Administration Clopidogrel Bisulfate 75 mg 08/16/20 06:00 08/17/20 06:30 Clopidogrel Bisulfate 75 Mg Tablet PO 75 mg DAILY JAMI Administration Duloxetine HCl 60 mg 08/16/20 06:00 08/17/20 06:31 Duloxetine Hcl 60 Mg Capsule PO 60 mg DAILY JAMI Administration Levothyroxine Sodium 75 mcg 08/16/20 06:00 10/22/20 06:31 Levothyroxine 75 Mcg Tablet PO 75 mcg DAILY@0600 [facility] Administration Losartan Potassium 50 mg 08/16/20 06:00 08/17/20 06:31 Losartan Potassium 50 Mg Tablet PO 50 mg DAILY JAMI Administration Magnesium Hydroxide 30 ml 08/16/20 08:00 Magnesium Hydroxide 30 Ml Udc PO DAILY PRN Constipation Multivitamins 1 tablet 08/16/20 08:00 08/17/20 08:29 Multivitamins,Therapeutic Tablet PO 1 tablet DAILYCM [facility] Administration Nutritional Formula (Lactose Free) 120 ml 08/15/20 17:00 08/17/20 11:24 Ensure Enlive 120 Ml Liquid PO Not Given 4X/DAY [facility] Ondansetron HCl 4 mg 08/15/20 15:35 Ondansetron 4 Mg/2 Ml Vial IV Q8H PRN PRN NAUSEA Oxycodone HCl 10 mg 08/15/20 19:54 08/17/20 08:31 Oxycodone 5 Mg Tablet PO 10 mg Q4H PRN PRN Administration Pain Score 4-10 Pantoprazole Sodium 40 mg 08/15/20 18:00 08/17/20 06:31 Pantoprazole Sodium 40 Mg Tablet PO 40 mg BID [facility] Administration Polyethylene Glycol 17 gm 08/16/20 08:00 Polyethylene Glycol 3350 17 Gm Packet PO BID PRN Constipation Polysaccharide Iron Complex 150 mg 08/16/20 08:00 08/17/20 08:29 Iron Polysaccharide Complex 150 Mg [facility]apsule [facility] Administration Senna/Docusate Sodium 2 tablet 08/16/20 08:00 Senna/Docusate Sodium 1 Tablet PO BID PRN Constipation Sodium Chloride 10 - 40 ml 08/15/20 15:23 0.9% Saline Lock 10 Ml Syringe IV UD PRN SALINE FLUSH Tuberculin PPD 5 tu 08/23/20 10:00 Tuberculin,Purif.Prot.Deriv. 50 Tu/Ml Vial ID 08/23/20 10:01 X1 ONE Zolpidem Tartrate 5 mg 08/15/20 15:47 08/16/20 22:31 Zolpidem Tartrate 5 Mg Tablet PO 5 mg QHS PRN Administration .INSOMNIA Problem List (Last Reviewed 03/31/20 @ 09:37 by Sylvie Cole) Debility (Acute) Osteoarthritis of right hip (Chronic) Syncope (Acute) Postoperative anemia (Acute) Dislocation of internal left hip prosthesis (Acute) SIADH (syndrome of inappropriate ADH production) (Acute) Hyponatremia (Acute) MRSA (methicillin resistant Staphylococcus aureus) (Chronic) Sleep apnea (Chronic) Coronary artery disease (Chronic) Hypertension (Chronic) Hypothyroidism (Chronic) GERD (gastroesophageal reflux disease) (Chronic) Depression (Chronic) Vital Signs Temp Pulse Resp BP Pulse Ox 98.5 F 82 16 104/53 L 94 08/17/20 04:00 08/17/20 04:00 08/17/20 04:00 08/17/20 04:00 08/17/20 04:00 Oxygen Delivery Method Room Air Weight: 97.664 kg Body Mass Index (BMI) 36.9 Sodium 131 mmol/L (136-145) L 08/16/20 05:20 Potassium 4.1 mmol/L (3.5-5.1) 08/16/20 05:20 Chloride 96 mmol/L (98-107) L 08/16/20 05:20 Carbon Dioxide 27.0 mmol/L (21.0-32.0) 08/16/20 05:20 Anion Gap 8 (5-15) 08/16/20 05:20 BUN 11 mg/dL (7-18) 08/16/20 05:20 Creatinine 0.54 mg/dL (0.55-1.02) L 08/16/20 05:20 Est GFR (MDRD) Af Amer 140 mL/min (>60) 08/16/20 05:20 Est GFR (MDRD) Non-Af 115 mL/min (>60) 08/16/20 05:20 BUN/Creatinine Ratio 20.2 RATIO (10-20) H 08/16/20 05:20 Glucose 84 mg/dL (74-106) 08/16/20 05:20 Assessment/Plan: Psychotropic Medications: Unnecessary Medications: Bowel Regimen: - Provider Comments Provider responsibility: Provider responsible to enter orders to implement recommendations Provider Comments to Recommendations by Pharmacy: Agree
--- NOTE | 2020-08-17 15:45 | CHAPLAIN ---
Type of Pastoral Visit ___ Initial Visit _x__ Follow-up Visit ___ On-call Visit ___ General Patient Visit ___ Spiritual Assessment ___ Family Conference ___ Bereavement ___ Rapid Response ___ Code Blue ___ Other (describe below) Pastoral Care Referral From _x__ Patient ___ Family ___ Nurse ___ Physician ___ Field Specialist ___ Show Host Or Hostess ___ Other (describe below) Sacrament/Intervention _x__ Active listening ___ Anointing ___ Muslim ___ Bereavement ___ Communion ___ Ayala exploration ___ _x__ Life review _x__ Prayer ___ Reconciliation ___ Sacrament of Sick _x__ Supportive presence ___ Wedding ___ Other (describe below) Pastoral Comments
[2020-08-17] MEDS: Atorvastatin Calcium 20 MG Tablet PO (22:18)
[2020-08-17 22:20] VITALS: PULSE 82; RESP 16; O2SAT 95
[2020-08-17] MEDS: Zolpidem Tartrate 5 MG Tablet PO (22:24)
[2020-08-18 04:00] VITALS: BP 115/65; PULSE 75; RESP 16; TEMP 36.9; O2SAT 95
[2020-08-18] MEDS: Bisacodyl 10 MG Suppository RECTAL (05:52)
[2020-08-18] MEDS: Pantoprazole Sodium 40 MG Tablet PO ×2 (05:55→17:24)
[2020-08-18] MEDS: DULoxetine Hcl 60 MG Capsule PO (05:55)
[2020-08-18] MEDS: Levothyroxine 75 MCG Tablet PO (05:55)
[2020-08-18] MEDS: Acetaminophen 500 MG Tablet 1000 MG PO ×3 (05:55→23:04)
[2020-08-18] MEDS: Clopidogrel Bisulfate 75 MG Tablet PO (05:55)
[2020-08-18] MEDS: Losartan Potassium 50 MG Tablet PO (05:56)
[2020-08-18] MEDS: Aspirin 81 MG TAB.CHEW PO ×2 (08:23→16:28)
[2020-08-18] MEDS: Calcium Carb/Vitamin D 1 TABLET Tablet PO ×2 (08:23→16:28)
[2020-08-18] MEDS: Multivitamins,Therapeutic Tablet 1 TABLET PO (08:23)
[2020-08-18] MEDS: Iron Polysaccharide Complex 150 MG CAPSULE PO (08:23)
[2020-08-18 09:33] VITALS: PULSE 82; RESP 16; O2SAT 96
[2020-08-18 14:55] VITALS: BP 114/60; PULSE 82; RESP 20; TEMP 36.2; O2SAT 96
[2020-08-18] MEDS: Atorvastatin Calcium 20 MG Tablet PO (23:04)
[2020-08-18] MEDS: Zolpidem Tartrate 5 MG Tablet PO (23:10)
[2020-08-19 04:00] VITALS: BP 95/54; PULSE 80; RESP 18; TEMP 36.7; O2SAT 97
[2020-08-19] MEDS: Acetaminophen 500 MG Tablet 1000 MG PO ×3 (06:05→20:39)
[2020-08-19] MEDS: DULoxetine Hcl 60 MG Capsule PO (06:06)
[2020-08-19] MEDS: Losartan Potassium 50 MG Tablet PO (06:06)
[2020-08-19] MEDS: Levothyroxine 75 MCG Tablet PO (06:06)
[2020-08-19] MEDS: Pantoprazole Sodium 40 MG Tablet PO ×2 (06:06→17:04)
[2020-08-19] MEDS: Clopidogrel Bisulfate 75 MG Tablet PO (06:06)
--- NOTE | 2020-08-19 06:11 | NURSING ---
pt c/o feeling crappy saying she has been asking for Benadryl stating she has allergies and her sinuses are all stuffed up. Asked to take temp. VS were T: 98.0 (Temporal) HR: 80 SPO2: 97 BP: 95/54 RT arm semifowlers. RN aware.
[2020-08-19] MEDS: Aspirin 81 MG TAB.CHEW PO ×2 (09:35→17:04)
[2020-08-19] MEDS: Iron Polysaccharide Complex 150 MG CAPSULE PO (09:36)
[2020-08-19] MEDS: Multivitamins,Therapeutic Tablet 1 TABLET PO (09:37)
[2020-08-19] MEDS: Calcium Carb/Vitamin D 1 TABLET Tablet PO ×2 (09:37→17:04)
--- NOTE | 2020-08-19 12:19 | NURSING ---
Resident notified of COVID Outbreak status. left message for family, Naty to call.
[2020-08-19 14:32] VITALS: BP 135/74; PULSE 81; RESP 18; TEMP 36; O2SAT 98
[2020-08-19] MEDS: Atorvastatin Calcium 20 MG Tablet PO (20:39)
[2020-08-19] MEDS: Zolpidem Tartrate 5 MG Tablet PO (22:38)
[2020-08-20 04:00] VITALS: BP 115/59; PULSE 83; RESP 16; TEMP 36.9; O2SAT 93
[2020-08-20] MEDS: Acetaminophen 500 MG Tablet 1000 MG PO ×3 (06:44→22:18)
[2020-08-20] MEDS: Levothyroxine 75 MCG Tablet PO (06:44)
[2020-08-20] MEDS: Clopidogrel Bisulfate 75 MG Tablet PO (06:44)
[2020-08-20] MEDS: Losartan Potassium 50 MG Tablet PO (06:44)
[2020-08-20] MEDS: DULoxetine Hcl 60 MG Capsule PO (06:44)
[2020-08-20] MEDS: Pantoprazole Sodium 40 MG Tablet PO ×2 (06:44→17:37)
[2020-08-20 08:10] LABS: Hematocrit 30.1 % (37-47); Hemoglobin 9.6 g/dL (12.0-15.0)
[2020-08-20] MEDS: Calcium Carb/Vitamin D 1 TABLET Tablet PO ×2 (08:30→17:37)
[2020-08-20] MEDS: Multivitamins,Therapeutic Tablet 1 TABLET PO (08:30)
[2020-08-20] MEDS: Aspirin 81 MG TAB.CHEW PO ×2 (08:30→17:38)
[2020-08-20] MEDS: Iron Polysaccharide Complex 150 MG CAPSULE PO (08:31)
[2020-08-20 10:00] VITALS: PULSE 80; RESP 16; O2SAT 97
[2020-08-20 13:37] VITALS: BP 135/79; PULSE 80; RESP 18; TEMP 36.7; O2SAT 98
[2020-08-20] MEDS: Atorvastatin Calcium 20 MG Tablet PO (22:18)
[2020-08-20] MEDS: Zolpidem Tartrate 5 MG Tablet PO (22:40)
[2020-08-21] MEDS: DULoxetine Hcl 60 MG Capsule PO (06:23)
[2020-08-21] MEDS: Pantoprazole Sodium 40 MG Tablet PO ×2 (06:23→16:59)
[2020-08-21] MEDS: Levothyroxine 75 MCG Tablet PO (06:23)
[2020-08-21] MEDS: Losartan Potassium 50 MG Tablet PO (06:23)
[2020-08-21] MEDS: Clopidogrel Bisulfate 75 MG Tablet PO (06:23)
[2020-08-21] MEDS: Acetaminophen 500 MG Tablet 1000 MG PO ×3 (06:23→21:39)
[2020-08-21 06:30] VITALS: BP 128/66; PULSE 79; RESP 16; TEMP 36.8; O2SAT 97
[2020-08-21] MEDS: Multivitamins,Therapeutic Tablet 1 TABLET PO (09:19)
[2020-08-21] MEDS: Aspirin 81 MG TAB.CHEW PO ×2 (09:19→16:58)
[2020-08-21] MEDS: Calcium Carb/Vitamin D 1 TABLET Tablet PO ×2 (09:19→16:58)
[2020-08-21] MEDS: Iron Polysaccharide Complex 150 MG CAPSULE PO (09:19)
[2020-08-21] MEDS: DiphenhydrAMINE 25 MG Capsule PO (11:28)
--- NOTE | 2020-08-21 13:58 | NURSING ---
pt being verbal mean and sarcastic with this nurse today. asked pt if she would like me to take her to bathroom in recliner and grab a hold of bar to help stand up and i would slide bed side camode under her and she could sit. pt stated well what good would that do me when i can just get up from chair here and turn and sit on comode. this nurse stated i would do what ever she is comfortable with. this nurse applied Calmoseptine to butt cheeks and pt stated thats not were it hurts its in my crack. applied to crack and patent yelled at this nurse and stated its in my rectum dont you know the difference you people dont know how i feel being in this situation. got patent comfortable in recliner,call light on her lap,table with in reach. reported to rn.
[2020-08-21 14:13] VITALS: BP 139/74; PULSE 81; RESP 18; TEMP 37.2; O2SAT 96
--- NOTE | 2020-08-21 17:27 | NURSING ---
Left a message on two different numbers for family, Naty, to call.
[2020-08-21] MEDS: Atorvastatin Calcium 20 MG Tablet PO (21:38)
[2020-08-21] MEDS: Zolpidem Tartrate 5 MG Tablet PO ×2 (21:39)
[2020-08-21 21:58] VITALS: PULSE 79; RESP 16; O2SAT 96
[2020-08-22] MEDS: DULoxetine Hcl 60 MG Capsule PO (06:40)
[2020-08-22] MEDS: Clopidogrel Bisulfate 75 MG Tablet PO (06:40)
[2020-08-22] MEDS: Levothyroxine 75 MCG Tablet PO (06:40)
[2020-08-22] MEDS: Pantoprazole Sodium 40 MG Tablet PO ×2 (06:40→17:52)
[2020-08-22] MEDS: Losartan Potassium 50 MG Tablet PO (06:40)
[2020-08-22] MEDS: Acetaminophen 500 MG Tablet 1000 MG PO ×3 (06:40→20:52)
[2020-08-22 06:42] VITALS: BP 135/68; PULSE 80; RESP 16; TEMP 36.9; O2SAT 97
[2020-08-22] MEDS: Calcium Carb/Vitamin D 1 TABLET Tablet PO ×2 (08:33→17:52)
[2020-08-22] MEDS: Aspirin 81 MG TAB.CHEW PO ×2 (08:33→17:52)
[2020-08-22] MEDS: Iron Polysaccharide Complex 150 MG CAPSULE PO (08:33)
[2020-08-22] MEDS: Multivitamins,Therapeutic Tablet 1 TABLET PO (08:33)
[2020-08-22 11:00] VITALS: PULSE 80; RESP 18; O2SAT 96
[2020-08-22 14:23] VITALS: BP 120/88; PULSE 86; RESP 14; TEMP 36.9; O2SAT 95
--- NOTE | 2020-08-22 15:47 | NURSING ---
Resident and friend, Naty, notified of staff member testing positive for COVID-19.
[2020-08-22] MEDS: Zolpidem Tartrate 5 MG Tablet PO ×2 (20:45→20:59)
[2020-08-22] MEDS: Atorvastatin Calcium 20 MG Tablet PO (20:53)
[2020-08-23 05:00] VITALS: BP 142/68; PULSE 81; RESP 18; TEMP 36.5; O2SAT 97
[2020-08-23 06:05] LABS: Absolute Neutrophil Count 2.5 X10^3/uL (2.0-7.7); Basophil# 0.04 X10^3/uL; Basophil% 0.9 % (0-1); Eosinophil# 0.28 X10^3/uL; Eosinophils% 6.4 % (0-5); Hemoglobin 9.7 g/dL (12.0-15.0); Lymphocyte % 20.7 % (19-41); Mean Corp Hgb Conc 32.3 g/dL (32-36); Mean Corpuscular Hgb 29.8 pg (27.0-32.0); Mean Corpuscular Volume 92.3 fL (81-99); Mean Platelet Vol. 8.1 fl (6.2-12.0); Monocyte# 0.58 X10^3/uL; Monocyte% 13.3 % (0-10); NRBC Flagged by Analyzer 0 % (0-5); Neutrophil # 2.52 X10^3/uL (2.7-7.7); Platelet Count 394 K/mm3 (150-450); RBC Distribution Width CV 14.6 % (11.6-14.6); RBC Distribution Width SD 49.3 fl (35.1-43.9); Red Blood Count 3.25 M/mm3 (4.2-5.4); White Blood Count 4.4 K/mm3 (4.4-11.0)
[2020-08-23] MEDS: Levothyroxine 75 MCG Tablet PO (06:13)
[2020-08-23] MEDS: Pantoprazole Sodium 40 MG Tablet PO ×2 (06:13→18:22)
[2020-08-23] MEDS: Losartan Potassium 50 MG Tablet PO (06:13)
[2020-08-23] MEDS: Acetaminophen 500 MG Tablet 1000 MG PO ×3 (06:13→21:33)
[2020-08-23] MEDS: DULoxetine Hcl 60 MG Capsule PO (06:13)
[2020-08-23] MEDS: Clopidogrel Bisulfate 75 MG Tablet PO (06:13)
[2020-08-23 06:34] LABS: Anion Gap 6 (5-15); BUN 13 mg/dL (7-18); BUN/Creat Ratio 22.7 RATIO (10-20); Calcium,Total 8.6 mg/dL (8.5-10.1); Chloride 96 mmol/L (98-107); Creatinine, Serum 0.57 mg/dL (0.55-1.02); EST Glomerular Filtration Rate 109 mL/min (>60); Est Glom Filt Rate - Afr Amer 132 mL/min (>60); Estimated Creatinine Clearance 41.33 ml/min; Glucose 86 mg/dL (74-106); Sodium Level 127 mmol/L (136-145)
[2020-08-23] MEDS: Iron Polysaccharide Complex 150 MG CAPSULE PO (08:32)
[2020-08-23] MEDS: Aspirin 81 MG TAB.CHEW PO ×2 (08:32→18:22)
[2020-08-23] MEDS: Multivitamins,Therapeutic Tablet 1 TABLET PO (08:32)
[2020-08-23] MEDS: Calcium Carb/Vitamin D 1 TABLET Tablet PO ×2 (08:32→18:22)
[2020-08-23] MEDS: Tuberculin,Purif.prot.deriv. 50 TU/ML Vial 5 ML ID (10:44)
--- NOTE | 2020-08-23 10:45 | CASEMGMT ---
Social Work IDT met with patient and cousin via conference call for care plan meeting. Discussed patient's progress in therapy. Pt is [facility] for bed mobility, [facility] for tx, [facility] to ambulate 20 ft with FWW. Pt is TTWBS on LLE for 2 weeks then can change to PWBS. Pt has 14 steps to enter apartment. Pt practiced 3 bus steps at [facility]. Pt is set up while seated with UE ADLs, [place] for LE ADLs, [place] for toileting tasks. Pt is out of isolation 08/29. Explained [facility] NRD 08/23 and continued stay is not guaranteed and has EDC 08/29. Pt has [facility] 3x/wk for 3 hrs. Will restart services. Will continue to follow. KAYCEE ZelayaW
[2020-08-23 11:40] LABS: Osmolality, Serum 264 mOsm/KG (280-301)
[2020-08-23 14:25] VITALS: BP 138/67; PULSE 84; RESP 18; TEMP 37.1; O2SAT 96
[2020-08-23 14:49] LABS: Urine Sodium 78 mmol/L (Not Establ.)
[2020-08-23 15:06] LABS: Osmolality, Urine 329 mOsm/KG
[2020-08-23 21:24] VITALS: PULSE 84; RESP 16
[2020-08-23] MEDS: Atorvastatin Calcium 20 MG Tablet PO (21:34)
[2020-08-23] MEDS: Zolpidem Tartrate 5 MG Tablet PO ×2 (22:45→22:47)
[2020-08-24 05:00] VITALS: BP 124/76; PULSE 80; RESP 16; TEMP 36.9; O2SAT 95
[2020-08-24] MEDS: Levothyroxine 75 MCG Tablet PO (06:45)
[2020-08-24] MEDS: Clopidogrel Bisulfate 75 MG Tablet PO (06:45)
[2020-08-24] MEDS: Losartan Potassium 50 MG Tablet PO (06:45)
[2020-08-24] MEDS: DULoxetine Hcl 60 MG Capsule PO (06:45)
[2020-08-24] MEDS: Acetaminophen 500 MG Tablet 1000 MG PO ×3 (06:45→22:39)
[2020-08-24] MEDS: Pantoprazole Sodium 40 MG Tablet PO (06:45)
[2020-08-24] MEDS: Aspirin 81 MG TAB.CHEW PO ×2 (08:18→17:57)
[2020-08-24] MEDS: Calcium Carb/Vitamin D 1 TABLET Tablet PO ×2 (08:19→17:57)
[2020-08-24] MEDS: Iron Polysaccharide Complex 150 MG CAPSULE PO (08:19)
[2020-08-24] MEDS: Multivitamins,Therapeutic Tablet 1 TABLET PO (08:19)
[2020-08-24 09:57] VITALS: PULSE 93; RESP 16
[2020-08-24 13:29] VITALS: BP 128/63; PULSE 84; RESP 17; TEMP 37; O2SAT 95
[2020-08-24] MEDS: Zolpidem Tartrate 5 MG Tablet PO ×2 (22:38→22:39)
[2020-08-24] MEDS: Atorvastatin Calcium 20 MG Tablet PO (22:40)
[2020-08-25 05:00] VITALS: BP 121/69; PULSE 78; RESP 16; TEMP 36.7; O2SAT 95
[2020-08-25 06:02] LABS: Anion Gap 7 (5-15); BUN 13 mg/dL (7-18); Calcium,Total 8.4 mg/dL (8.5-10.1); Chloride 95 mmol/L (98-107); Creatinine, Serum 0.65 mg/dL (0.55-1.02); EST Glomerular Filtration Rate 94 mL/min (>60); Est Glom Filt Rate - Afr Amer 114 mL/min (>60); Estimated Creatinine Clearance 40.68 ml/min; Glucose 81 mg/dL (74-106); Potassium 4.2 mmol/L (3.5-5.1); Sodium Level 130 mmol/L (136-145)
[2020-08-25] MEDS: Acetaminophen 500 MG Tablet 1000 MG PO ×3 (06:19→22:04)
[2020-08-25] MEDS: DULoxetine Hcl 60 MG Capsule PO (06:20)
[2020-08-25] MEDS: Levothyroxine 75 MCG Tablet PO (06:20)
[2020-08-25] MEDS: Losartan Potassium 50 MG Tablet PO (06:20)
[2020-08-25] MEDS: Clopidogrel Bisulfate 75 MG Tablet PO (06:20)
[2020-08-25] MEDS: Aspirin 81 MG TAB.CHEW PO ×2 (10:06→16:56)
[2020-08-25] MEDS: Iron Polysaccharide Complex 150 MG CAPSULE PO (10:06)
[2020-08-25] MEDS: Multivitamins,Therapeutic Tablet 1 TABLET PO (10:07)
[2020-08-25] MEDS: Calcium Carb/Vitamin D 1 TABLET Tablet PO ×2 (10:07→16:56)
--- NOTE | 2020-08-25 11:09 | NURSING ---
Pt returned from Dr. Chan's office with new orders PT/OT ok to progress weight bearing, partial weight bearing status starting 25% and progressing to 50% for next 4 weeks, continue posterior hip dislocation precautions for 3 months, abduction pillow while in bed. ASA 81mg BID for additional 2 weeks, top lovenox, f/u with Rocio in 4 weeks, continue tylenol for primary pain control, RN aware
[2020-08-25 14:06] VITALS: BP 124/64; PULSE 81; RESP 18; TEMP 37.1; O2SAT 96
[2020-08-25] MEDS: Zolpidem Tartrate 5 MG Tablet PO ×2 (22:03→22:04)
[2020-08-25] MEDS: Atorvastatin Calcium 20 MG Tablet PO (22:04)
[2020-08-25 22:18] VITALS: PULSE 82; RESP 16; O2SAT 96
[2020-08-26 03:51] VITALS: BP 134/55; PULSE 86; RESP 16; TEMP 36.7; O2SAT 96
[2020-08-26] MEDS: Acetaminophen 500 MG Tablet 1000 MG PO ×3 (06:44→20:56)
[2020-08-26] MEDS: Losartan Potassium 50 MG Tablet PO (06:45)
[2020-08-26] MEDS: DULoxetine Hcl 60 MG Capsule PO (06:45)
[2020-08-26] MEDS: Levothyroxine 75 MCG Tablet PO (06:45)
[2020-08-26] MEDS: Clopidogrel Bisulfate 75 MG Tablet PO (06:45)
[2020-08-26] MEDS: Iron Polysaccharide Complex 150 MG CAPSULE PO (09:00)
[2020-08-26] MEDS: Aspirin 81 MG TAB.CHEW PO ×2 (09:00→16:44)
[2020-08-26] MEDS: Multivitamins,Therapeutic Tablet 1 TABLET PO (09:01)
[2020-08-26] MEDS: Calcium Carb/Vitamin D 1 TABLET Tablet PO ×2 (09:01→16:44)
[2020-08-26 11:15] VITALS: PULSE 76; RESP 18; O2SAT 98
[2020-08-26 14:52] VITALS: BP 140/73; PULSE 85; RESP 16; TEMP 37; O2SAT 98
[2020-08-26] MEDS: ESOMEPRAZOLE MAG TRIHYDRATE 40 MG PO (17:55)
[2020-08-26] MEDS: Atorvastatin Calcium 20 MG Tablet PO (20:56)
[2020-08-26] MEDS: Zolpidem Tartrate 5 MG Tablet PO ×2 (22:41→22:42)
[2020-08-27 05:00] VITALS: BP 116/69; PULSE 83; RESP 18; TEMP 36.6; O2SAT 96
[2020-08-27] MEDS: ESOMEPRAZOLE MAG TRIHYDRATE 40 MG PO ×2 (05:23→17:42)
[2020-08-27] MEDS: DULoxetine Hcl 60 MG Capsule PO (05:24)
[2020-08-27] MEDS: Clopidogrel Bisulfate 75 MG Tablet PO (05:24)
[2020-08-27] MEDS: Losartan Potassium 50 MG Tablet PO (05:24)
[2020-08-27] MEDS: Levothyroxine 75 MCG Tablet PO (05:24)
[2020-08-27] MEDS: Acetaminophen 500 MG Tablet 1000 MG PO ×3 (05:24→21:51)
[2020-08-27] MEDS: Multivitamins,Therapeutic Tablet 1 TABLET PO (08:21)
[2020-08-27] MEDS: Calcium Carb/Vitamin D 1 TABLET Tablet PO ×2 (08:21→17:41)
[2020-08-27] MEDS: Aspirin 81 MG TAB.CHEW PO ×2 (08:21→17:41)
[2020-08-27] MEDS: Iron Polysaccharide Complex 150 MG CAPSULE PO (08:21)
[2020-08-27 13:38] VITALS: BP 130/67; PULSE 80; RESP 16; TEMP 36.7; O2SAT 98
--- NOTE | 2020-08-27 14:19 | NURSING ---
PT STATED THERE WAS NO 0NE SHE WANTED CALLED.
--- NOTE | 2020-08-27 17:13 | NURSING ---
QUALITY CONTROL INSPECTOR HEADING went in to do a check and change pt refused to be changed.
[2020-08-27] MEDS: Atorvastatin Calcium 20 MG Tablet PO (21:51)
[2020-08-27] MEDS: Zolpidem Tartrate 5 MG Tablet PO ×2 (22:43)
[2020-08-28 05:00] VITALS: BP 149/76; PULSE 78; RESP 18; TEMP 36.6; O2SAT 96
[2020-08-28] MEDS: ESOMEPRAZOLE MAG TRIHYDRATE 40 MG PO ×2 (06:12→16:27)
[2020-08-28] MEDS: DULoxetine Hcl 60 MG Capsule PO (06:13)
[2020-08-28] MEDS: Levothyroxine 75 MCG Tablet PO (06:13)
[2020-08-28] MEDS: Losartan Potassium 50 MG Tablet PO (06:13)
[2020-08-28] MEDS: Clopidogrel Bisulfate 75 MG Tablet PO (06:13)
[2020-08-28] MEDS: Acetaminophen 500 MG Tablet 1000 MG PO ×3 (06:13→23:03)
[2020-08-28] MEDS: Aspirin 81 MG TAB.CHEW PO ×2 (08:22→16:27)
[2020-08-28] MEDS: Iron Polysaccharide Complex 150 MG CAPSULE PO (08:22)
[2020-08-28] MEDS: Calcium Carb/Vitamin D 1 TABLET Tablet PO ×2 (08:23→16:27)
[2020-08-28] MEDS: Multivitamins,Therapeutic Tablet 1 TABLET PO (08:23)
[2020-08-28 10:00] VITALS: PULSE 75; RESP 16; O2SAT 96
[2020-08-28 13:18] VITALS: BP 136/67; PULSE 71; RESP 16; TEMP 36.5; O2SAT 95
--- NOTE | 2020-08-28 15:11 | MDS.RN ---
Information for the mds was obtained from review of the clinical record, interview of resident, staff, and direct observation of resident's care.
[2020-08-28] MEDS: Menthol/Lanolin/Calamine/Znox 113 GM Tube 1 APPLIC TOPICAL (18:00)
[2020-08-28] MEDS: Atorvastatin Calcium 20 MG Tablet PO (23:02)
[2020-08-28] MEDS: Zolpidem Tartrate 5 MG Tablet PO ×2 (23:02)
[2020-08-29 05:00] VITALS: BP 129/76; PULSE 82; RESP 18; TEMP 36.6; O2SAT 96
[2020-08-29] MEDS: Clopidogrel Bisulfate 75 MG Tablet PO (05:12)
[2020-08-29] MEDS: Levothyroxine 75 MCG Tablet PO (05:12)
[2020-08-29] MEDS: Losartan Potassium 50 MG Tablet PO (05:12)
[2020-08-29] MEDS: ESOMEPRAZOLE MAG TRIHYDRATE 40 MG PO ×2 (05:12→18:02)
[2020-08-29] MEDS: DULoxetine Hcl 60 MG Capsule PO (05:12)
[2020-08-29] MEDS: Acetaminophen 500 MG Tablet 1000 MG PO ×3 (05:12→21:16)
[2020-08-29] MEDS: Menthol/Lanolin/Calamine/Znox 113 GM Tube 1 APPLIC TOPICAL ×2 (05:14→18:03)
[2020-08-29] MEDS: Calcium Carb/Vitamin D 1 TABLET Tablet PO ×2 (08:30→18:02)
[2020-08-29] MEDS: Multivitamins,Therapeutic Tablet 1 TABLET PO (08:31)
[2020-08-29] MEDS: Aspirin 81 MG TAB.CHEW PO ×2 (08:31→18:02)
[2020-08-29] MEDS: Iron Polysaccharide Complex 150 MG CAPSULE PO (08:31)
[2020-08-29 13:56] VITALS: BP 121/67; PULSE 84; RESP 16; TEMP 36.8; O2SAT 97
--- NOTE | 2020-08-29 13:56 | NURSING ---
PT STATED SHE DIDNT NEED ANYONE CALLED
[2020-08-29 21:07] VITALS: PULSE 76; RESP 16; O2SAT 96
[2020-08-29] MEDS: Atorvastatin Calcium 20 MG Tablet PO (21:15)
[2020-08-29] MEDS: Zolpidem Tartrate 5 MG Tablet PO ×2 (21:16→21:19)
[2020-08-30 05:40] LABS: Absolute Lymphocyte Count 0.93 X10^3/uL (0.83-4.51); Basophil# 0.03 X10^3/uL; Basophil% 0.8 % (0-1); Eosinophil# 0.23 X10^3/uL; Eosinophils% 6.1 % (0-5); Hematocrit 31.3 % (37-47); Hemoglobin 10.2 g/dL (12.0-15.0); Lymphocyte # 0.93 X10^3/ul (4.0); Lymphocyte % 24.7 % (19-41); Mean Corp Hgb Conc 32.6 g/dL (32-36); Mean Corpuscular Hgb 30.7 pg (27.0-32.0); Mean Corpuscular Volume 94.3 fL (81-99); Mean Platelet Vol. 8.1 fl (6.2-12.0); Monocyte# 0.53 X10^3/uL; Monocyte% 14.1 % (0-10); NRBC Flagged by Analyzer 0 % (0-5); Neutrophil # 2.04 X10^3/uL (2.7-7.7); Platelet Count 311 K/mm3 (150-450); RBC Distribution Width CV 14.6 % (11.6-14.6); RBC Distribution Width SD 50.3 fl (35.1-43.9); Red Blood Count 3.32 M/mm3 (4.2-5.4); White Blood Count 3.8 K/mm3 (4.4-11.0)
[2020-08-30 05:41] VITALS: BP 125/73; PULSE 79; RESP 16; TEMP 36.4; O2SAT 93
[2020-08-30] MEDS: ESOMEPRAZOLE MAG TRIHYDRATE 40 MG PO ×2 (05:46→16:23)
[2020-08-30] MEDS: Levothyroxine 75 MCG Tablet PO (05:47)
[2020-08-30] MEDS: Losartan Potassium 50 MG Tablet PO (05:47)
[2020-08-30] MEDS: Acetaminophen 500 MG Tablet 1000 MG PO ×3 (05:47→21:27)
[2020-08-30] MEDS: DULoxetine Hcl 60 MG Capsule PO (05:47)
[2020-08-30] MEDS: Clopidogrel Bisulfate 75 MG Tablet PO (05:47)
[2020-08-30] MEDS: Menthol/Lanolin/Calamine/Znox 113 GM Tube 1 APPLIC TOPICAL ×2 (05:48→16:25)
[2020-08-30 06:11] LABS: Anion Gap 6 (5-15); BUN 13 mg/dL (7-18); BUN/Creat Ratio 24.8 RATIO (10-20); Calcium,Total 8.1 mg/dL (8.5-10.1); Chloride 94 mmol/L (98-107); Creatinine, Serum 0.52 mg/dL (0.55-1.02); EST Glomerular Filtration Rate 120 mL/min (>60); Est Glom Filt Rate - Afr Amer 145 mL/min (>60); Estimated Creatinine Clearance 40.68 ml/min; Glucose 78 mg/dL (74-106); Potassium 3.8 mmol/L (3.5-5.1); Sodium Level 128 mmol/L (136-145)
[2020-08-30] MEDS: Multivitamins,Therapeutic Tablet 1 TABLET PO (08:11)
[2020-08-30] MEDS: Aspirin 81 MG TAB.CHEW PO ×2 (08:11→16:21)
[2020-08-30] MEDS: Iron Polysaccharide Complex 150 MG CAPSULE PO (08:11)
[2020-08-30] MEDS: Calcium Carb/Vitamin D 1 TABLET Tablet PO ×2 (08:12→16:22)
[2020-08-30 10:00] VITALS: PULSE 88; RESP 16; O2SAT 96
--- NOTE | 2020-08-30 13:48 | NURSING ---
Pt notified of 2 COVID-19 positive staff members. Explained to Pt that all staff will be retested tomorrow 08/31/20. Pt to be tested 09/04/20.
[2020-08-30 14:19] VITALS: BP 130/74; PULSE 88; RESP 16; TEMP 36.4; O2SAT 96
--- NOTE | 2020-08-30 14:22 | CASEMGMT ---
Social Work Insurance issued LCD 09/01, DC 09/02. Notified pt and explained appeal rights. Pt feels ready to DC home. SW contacted [facility] to restart aide services. Referred to [facility] PT/OT. Pt requesting FWW. Referred to [facility] Family to transport pt home. No other issues. Plan: DC home alone 09/02, [facility] PT/OT, [facility], [employer] - FWW KAYCEE Zelaya
--- NOTE | 2020-08-30 16:05 | NURSING ---
Resident and friend, Naty, notified of staff member testing positive for COVID.
--- NOTE | 2020-08-30 19:30 | DCINST_ITS ---
- Discharge Diagnoses Current Active Problems: Current Active and Chronic Problems (Last Reviewed 03/31/20 @ 09:37 by Sylvie Cole) Debility (Acute) Osteoarthritis of right hip (Chronic) Syncope (Acute) Postoperative anemia (Acute) Dislocation of internal left hip prosthesis (Acute) SIADH (syndrome of inappropriate ADH production) (Acute) Hyponatremia (Acute) MRSA (methicillin resistant Staphylococcus aureus) (Chronic) Sleep apnea (Chronic) Coronary artery disease (Chronic) Hypertension (Chronic) Hypothyroidism (Chronic) GERD (gastroesophageal reflux disease) (Chronic) Depression (Chronic) You will use the following diet at home:: No restrictions, Regular Your food should be the consistency of: Regular Your liquids should be the consistency of: Regular/Thin Discharge Activity: Return to Normal Activity, May Shower, Use Walker Weight Bearing Status: Weight bearing as tolerated Call your doctor if you observe: Fever of 101 or Higher, Inability to urinate, Inability to have a bowel movement, Shortness of breath, Chest pain, Uncontrolled pain Allergies/Adverse Reactions: Allergies cat dander Allergy (Intermediate, Verified 08/02/20 09:02) nasal congestion ciprofloxacin [From Cipro] Allergy (Verified 08/02/20 09:02) Hives ciprofloxacin HCl [From Cipro] Allergy (Verified 08/02/20 09:02) Hives clindamycin Allergy (Verified 08/02/20 09:02) Rash doxycycline Allergy (Verified 08/02/20 09:02) Other latex Allergy (Verified 08/02/20 09:02) Hives nitrofurantoin [From Macrobid] Allergy (Verified 08/02/20 09:02) Other Penicillins Allergy (Verified 08/02/20 09:02) Shortness of breath vortioxetine [From Brintellix] Adverse Reaction (Intermediate, Verified 08/02/20 09:02) GI upset methotrexate Adverse Reaction (Unknown, Verified 08/02/20 09:02) unknown trazodone Adverse Reaction (Verified 08/02/20 09:02) Other [place] FEELING Medications to take at Discharge Levothyroxine [Synthroid] 75 mcg PO DAILY 12/23/13 Esomeprazole Mag Trihydrate [Nexium] 40 mg PO BID 03/15/19 Losartan Potassium [Cozaar] 50 mg PO DAILY 03/15/19 diphenhydramine HCl 25 mg capsule 25 mg PO QDAY PRN cap 07/12/19 zolpidem 10 mg tablet 10 mg PO QHS PRN tab 07/12/19 duloxetine 60 mg capsule,delayed release 60 mg PO DAILY cap 07/13/19 multivitamin 1 tab PO DAILY 03/31/20 Calcium Carbonate/Vitamin D3 [Calcium 500-Vit D3 200 Tablet] 2 ea PO DAILY 07/19/20 Clopidogrel Bisulfate [Clopidogrel] 75 mg PO DAILY 07/19/20 Loperamide [Imodium] 2 mg PO Q2H PRN PRN 07/19/20 Rosuvastatin Calcium 10 mg PO DAILY 07/19/20 Acetaminophen [Tylenol] 1,000 mg PO Q8 08/15/20 Aspirin [Aspirin, Baby] 81 mg PO BIDCM 08/15/20 Ferrous Gluconate 324 mg PO DAILY@0800 08/15/20 Senna/Docusate Sodium [Senokot-S] 2 tab PO BID 08/15/20 Calcium Carb/Vitamin D [Os-Santiago 500MG + D] 1 tab PO BIDCM tab 08/30/20 DiphenhydrAMINE [Benadryl] 25 mg PO DAILY PRN PRN cap 08/30/20 Esomeprazole Mag Trihydrate [Nexium] 40 mg PO 0600,1700 cap 08/30/20 Iron Polysaccharide Complex [Ferrex 150] 150 mg PO DAILYCM cap 08/30/20 Menthol/Lanolin/Calamine/Znox [Calmoseptine Ointment] 1 applic TOPICAL BID tube 08/30/20 Primary Care Physician: Ayleen Tam MD [Primary Care Provider] - Please follow up with your Primary Care Physician in: 1 week. Test Results: Test results from this visit will be discussed in further detail at your follow- up appointment, if applicable. Please Follow Up With: When: 08/17/20 will need scheduled appt for xrays and incision check Proposed Discharge Date: 09/02/20
--- NOTE | 2020-08-30 19:31 | DS.PCM_ITS ---
Discharge Date and Diagnosis - Problem List Patient Problems: Active and Suspected Problems (Last Reviewed 03/31/20 @ 09:37 by Sylvie Cole) Debility (Acute) Syncope (Acute) Postoperative anemia (Acute) Dislocation of internal left hip prosthesis (Acute) SIADH (syndrome of inappropriate ADH production) (Acute) Hyponatremia (Acute) Date of Admission: 08/15/20 Date of Discharge: 09/02/20 - Primary Discharge Diagnosis Acute Problems: Active Problems (Last Reviewed 03/31/20 @ 09:37 by Sylvie Cole) Debility (Acute) Syncope (Acute) Postoperative anemia (Acute) Dislocation of internal left hip prosthesis (Acute) SIADH (syndrome of inappropriate ADH production) (Acute) Hyponatremia (Acute) - Secondary Discharge Diagnosis Chronic Problems: Chronic Problems (Last Reviewed 03/31/20 @ 09:37 by Sylvie Cole) Osteoarthritis of right hip (Chronic) MRSA (methicillin resistant Staphylococcus aureus) (Chronic) Sleep apnea (Chronic) Coronary artery disease (Chronic) Stented coronary artery (Chronic 07/16/19) 2.5 X 16 [employer] EZEKIEL to Proximal Diag #1 per DJN @ [facility], 07/16/2019 Atherosclerosis of coronary artery of nez perce heart without angina pectoris (Chronic) Hypertension (Chronic) Obstructive sleep apnea (Chronic) Per sleep study done 05/02/2016 Dr. 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 Oc Chan [facility] Course and Treatment Imaging Results: 08/15/20 15:47 Diet: Regular - General Food consistency:: Regular Liquid Consistency:: Regular/Thin Dietary Modifications:: Lacto-Ovo Vegetarian Is pt able to select menu?: Yes Labs (Last 48 Hours) 08/30/20 08/30/20 05:05 05:05 WBC 3.8 L RBC 3.32 L Hgb 10.2 L Hct 31.3 L MCV 94.3 MCH 30.7 MCHC 32.6 RDW Std Deviation 50.3 H RDW Coeff of Papo 14.6 Plt Count 311 MPV 8.1 Immature Gran % (Auto) 0.300 Neut % (Auto) 54.0 Lymph % (Auto) 24.7 [place] % (Auto) 14.1 H Eos % (Auto) 6.1 H Baso % (Auto) 0.8 Absolute Neuts (auto) 2.0 Absolute Lymphs (auto) 0.93 Nucleated RBC % 0 Sodium 128 L Potassium 3.8 Chloride 94 L Carbon Dioxide 28.0 Anion Gap 6 BUN 13 Creatinine 0.52 L Estim Creat Clear Calc 40.68 Est GFR (MDRD) Af Amer 145 Est GFR (MDRD) Non-Af 120 BUN/Creatinine Ratio 24.8 H Glucose 78 Calcium 8.1 L Operations: None, - - Left tibial IM nail insertion Procedures: None Summary of Care Provided: The patient is a 75 year old Female with below past medical history hospitalized for left total hip replacement, complicated by dislocation, requiring revision left total hip replacement, complicated by syncope, postoperative anemia, hyponatremia secondary to SIADH, admitted to TCU with debility, here for rehabilitation, strengthening, prior to discharge home alone. [] Discharge home alone, [facility] PT[facility]OT, [facility], [employer] [facility]. Patient Problems: Active and Suspected Problems (Last Reviewed 03/31/20 @ 09:37 by Sylvie Cole) Debility (Acute) Syncope (Acute) Postoperative anemia (Acute) Dislocation of internal left hip prosthesis (Acute) SIADH (syndrome of inappropriate ADH production) (Acute) Hyponatremia (Acute) - Physical Exam Vitals/I&O's: Vital Signs Temp Pulse Resp BP Pulse Ox 97.5 F L 88 16 130/74 H 96 08/30/20 14:19 08/30/20 14:19 08/30/20 14:19 08/30/20 14:19 08/30/20 14:19 Oxygen Delivery Method Room Air Weight: 93.984 kg Body Mass Index (BMI) 36.9 Intake and Output for Last 24 Hours 08/28/20 08/29/20 08/30/20 23:59 23:59 23:59 Intake Total 720 / 720 720 / 720 880 / 880 Output Total 500 / 500 Balance 220 / 220 720 / 720 880 / 880 Laboratory Results 08/30/20 05:05: WBC 3.8 L, RBC 3.32 L, Hgb 10.2 L, Hct 31.3 L, MCV 94.3, MCH 30.7, MCHC 32.6, RDW Std Deviation 50.3 H, RDW Coeff of Papo 14.6, Plt Count 311, MPV 8.1, Immature Gran % (Auto) 0.300, Neut % (Auto) 54.0, Lymph % (Auto) 24.7, [place] % (Auto) 14.1 H, Eos % (Auto) 6.1 H, Baso % (Auto) 0.8, Absolute Neuts (auto) 2.0, Absolute Lymphs (auto) 0.93, Nucleated RBC % 0 08/30/20 05:05: Sodium 128 L, Potassium 3.8, Chloride 94 L, Carbon Dioxide 28.0, Anion Gap 6, BUN 13, Creatinine 0.52 L, Estim Creat Clear Calc 40.68, Est GFR (MDRD) Af Amer 145, Est GFR (MDRD) Non-Af 120, BUN/Creatinine Ratio 24.8 H, Glucose 78, Calcium 8.1 L Current Medications Acetaminophen (Acetaminophen 500 Mg Tablet) 1,000 mg PO Q8 [facility] Last Admin: 08/30/20 14:23 Dose: 1,000 mg Documented by: Aspirin (Aspirin 81 Mg Tab.Chew) [facility] Stop: 09/26/20 08:01 Last Admin: 08/30/20 16:21 Dose: 81 mg Documented by: Atorvastatin Calcium (Atorvastatin Calcium 20 Mg Tablet) 20 mg PO QHS [facility] Last Admin: 08/29/20 21:15 Dose: 20 mg Documented by: Bisacodyl (Bisacodyl 10 Mg Suppository) 10 mg RECTAL DAILY PRN PRN Reason: Constipation Last Admin: 08/18/20 05:52 Dose: 10 mg Documented by: Bisacodyl (Bisacodyl 5 Mg Tablet) 10 mg PO DAILY PRN PRN Reason: Constipation Calamine/Phenol (Menthol/Lanolin/Calamine/Znox 113 Gm Tube) 1 applic TOPICAL BID [facility]; Protocol Last Admin: 08/30/20 16:25 Dose: 1 applicatio Documented by: Calcium/Vitamin D (Calcium Carb/Vitamin D 1 Tablet Tablet) [facility] Last Admin: 08/30/20 16:22 Dose: 1 tablet Documented by: Clopidogrel Bisulfate (Clopidogrel Bisulfate 75 Mg Tablet) 75 mg PO DAILY [facility] Last Admin: 08/30/20 05:47 Dose: 75 mg Documented by: Diphenhydramine HCl (Diphenhydramine 25 Mg Capsule) 25 mg PO DAILY PRN PRN PRN Reason: ALLERGIES Last Admin: 08/21/20 11:28 Dose: 25 mg Documented by: Duloxetine HCl (Duloxetine Hcl 60 Mg Capsule) 60 mg PO DAILY [facility] Last Admin: 08/30/20 05:47 Dose: 60 mg Documented by: Esomeprazole Magnesium (Esomeprazole Mag Trihydrate 40 Mg Capsule) 40 mg PO 0600,1700 [facility] Last Admin: 08/30/20 16:23 Dose: 40 mg Documented by: Levothyroxine Sodium (Levothyroxine 75 Mcg Tablet) 75 mcg PO DAILY@0600 [facility] Last Admin: 08/30/20 05:47 Dose: 75 mcg Documented by: Losartan Potassium (Losartan Potassium 50 Mg Tablet) 50 mg PO DAILY [facility] Last Admin: 08/30/20 05:47 Dose: 50 mg Documented by: Magnesium Hydroxide (Magnesium Hydroxide 30 Ml Udc) 30 ml PO DAILY PRN PRN Reason: Constipation Multivitamins (Multivitamins,Therapeutic Tablet) [facility] Last Admin: 08/30/20 08:11 Dose: 1 tablet Documented by: Nutritional Formula (Lactose Free) (Ensure Enlive 120 Ml Liquid) 120 ml PO 4X/DAY [facility] Last Admin: 08/30/20 17:30 Dose: Not Given Documented by: Ondansetron HCl (Ondansetron 4 Mg/2 Ml Vial) 4 mg IV Q8H PRN PRN PRN Reason: NAUSEA Oxycodone HCl (Oxycodone 5 Mg Tablet) 10 mg PO Q4H PRN PRN PRN Reason: Pain Score 4-10 Last Admin: 08/17/20 22:25 Dose: 10 mg Documented by: Polyethylene Glycol (Polyethylene Glycol 3350 17 Gm Packet) 17 gm PO BID PRN PRN Reason: Constipation Polysaccharide Iron Complex (Iron Polysaccharide Complex 150 Mg Capsule) [facility] Last Admin: 08/30/20 08:11 Dose: 150 mg Documented by: Senna/Docusate Sodium (Senna/Docusate Sodium 1 Tablet) 2 tablet PO BID PRN PRN Reason: Constipation Sodium Chloride (0.9% Saline Lock 10 Ml Syringe) 10 - 40 ml IV UD PRN PRN Reason: SALINE FLUSH Zolpidem Tartrate (Zolpidem Tartrate 5 Mg Tablet) 5 mg PO QHS [facility] Last Admin: 08/29/20 21:16 Dose: 5 mg Documented by: Zolpidem Tartrate (Zolpidem Tartrate 5 Mg Tablet) 5 mg PO QHS PRN PRN PRN Reason: INSOMNIA Last Admin: 08/29/20 21:19 Dose: 5 mg Documented by: Discharge Diet: No Restrictions Discharge Activity: Return to Normal Activity, May Shower, Use Walker Weight Bearing Status: Weight bearing as tolerated Call your doctor if you observe: Fever of 101 or Higher, Inability to urinate, Inability to have a bowel movement, Shortness of breath, Chest pain, Uncontrolled pain Home Medications: Medications to take at Discharge Levothyroxine [Synthroid] 75 mcg PO DAILY 12/23/13 Esomeprazole Mag Trihydrate [Nexium] 40 mg PO BID 03/15/19 Losartan Potassium [Cozaar] 50 mg PO DAILY 03/15/19 diphenhydramine HCl 25 mg capsule 25 mg PO QDAY PRN cap 07/12/19 zolpidem 10 mg tablet 10 mg PO QHS PRN tab 07/12/19 duloxetine 60 mg capsule,delayed release 60 mg PO DAILY cap 07/13/19 multivitamin 1 tab PO DAILY 03/31/20 Calcium Carbonate/Vitamin D3 [Calcium 500-Vit D3 200 Tablet] 2 ea PO DAILY 07/19/20 Clopidogrel Bisulfate [Clopidogrel] 75 mg PO DAILY 07/19/20 Loperamide [Imodium] 2 mg PO Q2H PRN PRN 07/19/20 Rosuvastatin Calcium 10 mg PO DAILY 07/19/20 Acetaminophen [Tylenol] 1,000 mg PO Q8 08/15/20 Aspirin [Aspirin, Baby] 81 mg PO BIDCM 08/15/20 Ferrous Gluconate 324 mg PO DAILY@0800 08/15/20 Senna/Docusate Sodium [Senokot-S] 2 tab PO BID 08/15/20 Calcium Carb/Vitamin D [Os-Santiago 500MG + D] 1 tab PO BIDCM tab 08/30/20 DiphenhydrAMINE [Benadryl] 25 mg PO DAILY PRN PRN cap 08/30/20 Esomeprazole Mag Trihydrate [Nexium] 40 mg PO 00,1700 cap 08/30/20 Iron Polysaccharide Complex [Ferrex 150] 150 mg PO DAILYCM cap 08/30/20 Menthol/Lanolin/Calamine/Znox [Calmoseptine Ointment] 1 applic TOPICAL BID tube 08/30/20 Primary Care Physician: Ayleen Tam MD [Primary Care Provider] - Please follow up with your Primary Care Physician in: 1 week. Please Follow Up With: When: 08/17/20 will need scheduled appt for xrays and incision check Disposition: Home with Home Health Minutes spent on discharge:: 35 Patient Condition:: Stable Medical Necessity - Tobacco Use Smoking Status: Former smoker Tobacco Use: Non-smoker Meaningful Use Info Meaningful Use Diagnoses (Choose all that apply): None applicable
[2020-08-30] MEDS: Atorvastatin Calcium 20 MG Tablet PO (21:27)
[2020-08-30] MEDS: Zolpidem Tartrate 5 MG Tablet PO ×2 (21:27)
[2020-08-31 06:20] VITALS: BP 133/71; PULSE 86; RESP 16; TEMP 37; O2SAT 96
[2020-08-31] MEDS: ESOMEPRAZOLE MAG TRIHYDRATE 40 MG PO ×2 (06:21→16:25)
[2020-08-31] MEDS: Losartan Potassium 50 MG Tablet PO (06:21)
[2020-08-31] MEDS: Levothyroxine 75 MCG Tablet PO (06:21)
[2020-08-31] MEDS: Acetaminophen 500 MG Tablet 1000 MG PO ×3 (06:21→21:44)
[2020-08-31] MEDS: DULoxetine Hcl 60 MG Capsule PO (06:21)
[2020-08-31] MEDS: Clopidogrel Bisulfate 75 MG Tablet PO (06:21)
[2020-08-31] MEDS: Menthol/Lanolin/Calamine/Znox 113 GM Tube 1 APPLIC TOPICAL ×2 (06:23→17:15)
[2020-08-31] MEDS: Aspirin 81 MG TAB.CHEW PO ×2 (08:35→16:26)
[2020-08-31] MEDS: Multivitamins,Therapeutic Tablet 1 TABLET PO (08:35)
[2020-08-31] MEDS: Calcium Carb/Vitamin D 1 TABLET Tablet PO ×2 (08:35→16:26)
[2020-08-31] MEDS: Iron Polysaccharide Complex 150 MG CAPSULE PO (08:35)
[2020-08-31 14:06] VITALS: BP 144/68; PULSE 86; RESP 14; TEMP 36.8; O2SAT 97
[2020-08-31] MEDS: Atorvastatin Calcium 20 MG Tablet PO (21:44)
[2020-08-31] MEDS: Zolpidem Tartrate 5 MG Tablet PO ×2 (21:45)
[2020-08-31 22:54] VITALS: PULSE 76; RESP 16; O2SAT 96
[2020-09-01 05:00] VITALS: BP 135/81; PULSE 81; RESP 18; TEMP 36.6; O2SAT 96
[2020-09-01] MEDS: Clopidogrel Bisulfate 75 MG Tablet PO (06:39)
[2020-09-01] MEDS: Levothyroxine 75 MCG Tablet PO (06:39)
[2020-09-01] MEDS: Acetaminophen 500 MG Tablet 1000 MG PO ×3 (06:39→21:34)
[2020-09-01] MEDS: DULoxetine Hcl 60 MG Capsule PO (06:39)
[2020-09-01] MEDS: Losartan Potassium 50 MG Tablet PO (06:39)
[2020-09-01] MEDS: Menthol/Lanolin/Calamine/Znox 113 GM Tube 1 APPLIC TOPICAL ×2 (06:40→17:48)
[2020-09-01] MEDS: ESOMEPRAZOLE MAG TRIHYDRATE 40 MG PO ×2 (06:40→17:07)
[2020-09-01] MEDS: Iron Polysaccharide Complex 150 MG CAPSULE PO (08:33)
[2020-09-01] MEDS: Aspirin 81 MG TAB.CHEW PO ×2 (08:33→17:07)
[2020-09-01] MEDS: Multivitamins,Therapeutic Tablet 1 TABLET PO (08:33)
[2020-09-01] MEDS: Calcium Carb/Vitamin D 1 TABLET Tablet PO ×2 (08:33→17:07)
--- NOTE | 2020-09-01 08:46 | CASEMGMT ---
Social Work BIMS and PHQ-9 were completed for MDS assessment. Chelle Cardona, WIG[employer] SALESPERSON CONTINUOUS PILLOWCASE CUTTER
--- NOTE | 2020-09-01 11:36 | PHA.DC.MR ---
Pharmacy Service has performed discharge medication reconciliation for this patient. The patient's discharge medication list was reviewed for discrepancies and discrepancies were resolved. Home Medications Levothyroxine [Synthroid] 75 mcg PO DAILY 12/23/13 Losartan Potassium [Cozaar] 50 mg PO DAILY 03/15/19 diphenhydramine HCl 25 mg capsule 25 mg PO QDAY PRN cap 07/12/19 zolpidem 10 mg tablet 10 mg PO QHS PRN tab 07/12/19 duloxetine 60 mg capsule,delayed release 60 mg PO DAILY cap 07/13/19 multivitamin 1 tab PO DAILY 03/31/20 Clopidogrel Bisulfate [Clopidogrel] 75 mg PO DAILY 07/19/20 Loperamide [Imodium] 2 mg PO Q2H PRN PRN 07/19/20 Rosuvastatin Calcium 10 mg PO DAILY 07/19/20 Acetaminophen [Tylenol] 1,000 mg PO Q8 08/15/20 Aspirin [Aspirin, Baby] 81 mg PO BIDCM 08/15/20 Ferrous Gluconate 324 mg PO DAILY@0800 08/15/20 Senna/Docusate Sodium [Senokot-S] 2 tab PO BID 08/15/20 Calcium Carb/Vitamin D [Os-Santiago 500MG + D] 1 tab PO BIDCM tab 08/30/20 DiphenhydrAMINE [Benadryl] 25 mg PO DAILY PRN PRN cap 08/30/20 Esomeprazole Mag Trihydrate [Nexium] 40 mg PO 0600,1700 cap 08/30/20 Iron Polysaccharide Complex [Ferrex 150] 150 mg PO DAILYCM cap 08/30/20 Menthol/Lanolin/Calamine/Znox [Calmoseptine Ointment] 1 applic TOPICAL BID tube 08/30/20
[2020-09-01 12:45] VITALS: PULSE 87; RESP 18; O2SAT 96
--- NOTE | 2020-09-01 12:57 | NURSING ---
pt stated this nurse didnt need to update any one.
--- NOTE | 2020-09-01 13:53 | NURSING ---
ASKED PT IF SHE NEEDED HER ATTENDS CHANGED. PT STATED NO,JACOB NOT GOING TO CALL EVERY TIME I DO A SMALL AMOUNT OF URINE. EXPLAINED TO PT WHAT COULD HAPPEN IF SHE SAT IN WET ATTENDS. PT GOT UPSET AND STATED JACOB FINE I JUST WANT BE LEFT ALONE. AWARE
[2020-09-01 15:25] VITALS: BP 117/65; PULSE 81; RESP 14; TEMP 37.3; O2SAT 97
[2020-09-01] MEDS: Zolpidem Tartrate 5 MG Tablet PO (21:33)
[2020-09-01] MEDS: Atorvastatin Calcium 20 MG Tablet PO (21:34)
[2020-09-02] MEDS: Acetaminophen 500 MG Tablet 1000 MG PO (06:03)
[2020-09-02] MEDS: Levothyroxine 75 MCG Tablet PO (06:03)
[2020-09-02] MEDS: Clopidogrel Bisulfate 75 MG Tablet PO (06:03)
[2020-09-02] MEDS: DULoxetine Hcl 60 MG Capsule PO (06:03)
[2020-09-02] MEDS: Losartan Potassium 50 MG Tablet PO (06:03)
[2020-09-02] MEDS: Menthol/Lanolin/Calamine/Znox 113 GM Tube 1 APPLIC TOPICAL (06:04)
[2020-09-02] MEDS: ESOMEPRAZOLE MAG TRIHYDRATE 40 MG PO (06:04)
[2020-09-02 06:07] VITALS: BP 146/75; PULSE 78; RESP 17; TEMP 37; O2SAT 97
[2020-09-02] MEDS: Aspirin 81 MG TAB.CHEW PO (08:20)
[2020-09-02] MEDS: Calcium Carb/Vitamin D 1 TABLET Tablet PO (08:20)
[2020-09-02] MEDS: Iron Polysaccharide Complex 150 MG CAPSULE PO (08:20)
[2020-09-02] MEDS: Multivitamins,Therapeutic Tablet 1 TABLET PO (08:20)
[2020-09-02 10:00] VITALS: RESP 16
[2020-09-02 11:00] VITALS: BP 142/85; PULSE 77; RESP 16; TEMP 36.5; O2SAT 96
== END 2020-09-02 12:05 | disposition home or self-care (01) | DRG 560 ==
PROVIDERS: Admitting Provider Family Medicine Geriatric Medicine; PCP Internal Medicine; Visit Provider Family Medicine Geriatric Medicine
DX: Z47.1 Aftercare following joint replacement surgery (principal); E22.2 Syndrome of inappropriate secretion of antidiuretic hormone; Z96.642 Presence of left artificial hip joint; F32.9 Major depressive disorder, single episode, unspecified; E78.5 Hyperlipidemia, unspecified; I25.10 Atherosclerotic heart disease of native coronary artery without angina pectoris; K21.9 Gastro-esophageal reflux disease without esophagitis; E03.9 Hypothyroidism, unspecified; I10 Essential (primary) hypertension; D50.9 Iron deficiency anemia, unspecified; Z87.891 Personal history of nicotine dependence; G47.33 Obstructive sleep apnea (adult) (pediatric); T84.021D Dislocation of internal left hip prosthesis, subsequent encounter; Y79.2 Prosthetic and other implants, materials and accessory orthopedic devices associated with adverse incidents; Z86.14 Personal history of Methicillin resistant Staphylococcus aureus infection
CPT/HCPCS: 36415; 80048; 83930; 83935; 84300; 85014; 85018; 85025; 86850; 86900; 86901; 86920; 86922; 87426; 87635; 97110; 97116; 97162; 97166; 97530; 97535; 97802; U0003

== ENCOUNTER → 2020-08-17 08:58 | Outpatient (CLI) | payer MEDICARE, MEDICAID, SELFPAY ==
[2019-07-16 11:02] VITALS: BMI 34.8
[2020-08-15 15:18] VITALS: BMI 36.9
[2020-08-17] VITALS (7 sets, daily range): BP systolic 104–122; BP diastolic 51–65; PULSE 76–84; RESP 16; TEMP 36.1–37.2; O2SAT 93–100; BMI 32.9
[2020-08-17] MEDS: 0.9% NaCl Peripheral Flush Adult/Peds IV (09:22)
[2020-08-17] MEDS: Furosemide 20 MG/2 ML VIAL IV (11:57)
== END ==
PROVIDERS: PCP Internal Medicine; Referring Provider Family Medicine Geriatric Medicine; Visit Provider Family Medicine Geriatric Medicine
DX: D64.9 Anemia, unspecified (principal)
CPT/HCPCS: 36415; 36430; 86850; 86900; 86901; 86920; 86922; J7040; P9016; A4216; J1940

== ENCOUNTER 2020-11-08 15:31 | Inpatient (IN) | payer MEDICARE, MEDICAID, SELFPAY ==
[2019-07-16 11:02] VITALS: BMI 34.8
[2020-08-17 09:29] VITALS: BMI 32.9
[2020-11-08 15:32] VITALS: BP 121/74; PULSE 97; RESP 18; TEMP 36.9; O2SAT 99; BMI 34.9
--- NOTE | 2020-11-08 15:52 | ED.DCSUM_ITS ---
- ER Visit Summary Date of Service: 11/08/20 Chief Complaint: [Diarrhea and rectal bleeding] History of Present Illness: The patient is a 75 F [presents to the emergency department with complaint of diarrhea that started 5 days ago. Initially the diarrhea was just watery but then began having blood in it and passing clots about a day and a half after initially started. Patient complains of some generalized weakness and some generalized abdominal discomfort. She denies any fevers. She denies being on antibiotics recently. She denies any history of inflammatory bowel disease. She is not anticoagulated currently other than taking baby aspirin. Patient denies fever, cough, or sore throat. Patient denies any COVID-19 exposures. Patient does have history of coronary artery disease. She denies urinary symptoms. She denies nausea or vomiting.] Physical Examination: [HEENT-PERRLA, EOMI. Cranial nerves II through XII grossly intact. TMs clear. Mucous membranes moist. No adenopathy. Cardiovascular-regular rate and rhythm without murmur or ectopy Lungs-clear to auscultation, chest wall stable without crepitus or subcu emphysema Abdomen-normoactive bowel sounds, soft. Patient has some mild discomfort diffusely about the abdomen. There is no rebound, rigidity, or peritoneal signs. Extremities-intact ?4, normal range of motion, normal pulses, atraumatic] Test Results: [CBC with differential showing a 9.7, hemoglobin 13, hematocrit 41, placed 355. Chemistry showed a sodium of 128, potassium 3.9, chloride 96, CO2 23, glucose 122, BUN 47 creatinine 1.17. Alk phos was 169. Lactic acid was 1.7 and SARS Covid test was negative. CT of the abdomen pelvis showed pancolitis and showed patient to be status post cholecystectomy.] Results of stool studies pending. Emergency Department Course and Treatment: [IV line established on arrival. Patient was given normal saline. Patient started on Flagyl 500 mg IV and Rocephin 2 g IV.] Treatment Plan: [Admit] Disposition: [Admit] Impression: [Pancolitis Lower GI bleed] This note was generated with [employer] dictation software. It may contain incorrect words, spelling, and punctuation that were not noted in review of the chart prior to signing ED Disposition - Plan for ED Patient: Referrals: Ayleen Tam MD [Primary Care Provider] -
[2020-11-08 16:15] LABS: Absolute Lymphocyte Count 1.23 X10^3/uL (0.83-4.51); Absolute Neutrophil Count 7.1 X10^3/uL (2.0-7.7); Basophil# 0.03 X10^3/uL; Basophil% 0.3 % (0-1); Eosinophil# 0.24 X10^3/uL; Eosinophils% 2.5 % (0-5); Hematocrit 40.8 % (37-47); Hemoglobin 13.4 g/dL (12.0-15.0); Lymphocyte # 1.23 X10^3/ul (4.0); Lymphocyte % 12.7 % (19-41); Mean Corp Hgb Conc 32.8 g/dL (32-36); Mean Corpuscular Hgb 29.7 pg (27.0-32.0); Mean Corpuscular Volume 90.5 fL (81-99); Monocyte# 1.03 X10^3/uL; Monocyte% 10.6 % (0-10); NRBC Flagged by Analyzer 0 % (0-5); Neutrophil # 7.12 X10^3/uL (2.7-7.7); Neutrophil % 73.6 % (47-70); Platelet Count 355 K/mm3 (150-450); RBC Distribution Width CV 13.3 % (11.6-14.6); Red Blood Count 4.51 M/mm3 (4.2-5.4); White Blood Count 9.7 K/mm3 (4.4-11.0)
[2020-11-08 16:29] LABS: ALB/GLOB Ratio 0.9 RATIO (0.9-2.4); AST(SGOT) 19 U/L (15-37); Alanine Aminotransfer ALT/SGPT 20 U/L (13-56); Albumin, Serum 3.6 g/dL (3.2-5.0); Alkaline Phosphatase 169 U/L (45-117); Anion Gap 9 (5-15); BUN 47 mg/dL (7-18); BUN/Creat Ratio 40.2 RATIO (10-20); Chloride 96 mmol/L (98-107); Creatinine, Serum 1.17 mg/dL (0.55-1.02); EST Glomerular Filtration Rate 48 mL/min (>60); Est Glom Filt Rate - Afr Amer 58 mL/min (>60); Estimated Creatinine Clearance 36.23 ml/min; Glucose 122 mg/dL (74-106); Potassium 3.9 mmol/L (3.5-5.1); Protein, Total 7.6 g/dL (6.4-8.2); Sodium Level 128 mmol/L (136-145)
[2020-11-08 16:31] LABS: Lactic Acid 1.7 mmol/L (0.4-1.9)
[2020-11-08 16:32] VITALS: BP 107/69; BP 112/70; BP 119/76; PULSE 101; PULSE 106; PULSE 98
[2020-11-08] MEDS: 0.9% Normal Saline 1,000 ML 1000 ML IV (16:32)
--- NOTE | 2020-11-08 16:54 | CT_ITS ---
STUDY: CT ABDOMEN AND PELVIS WITH CONTRAST REASON FOR EXAM: Female, 75 years old. Abdominal pain and diarrhea for 5 days. RADIATION DOSAGE (If Supplied By Facility): CTDIvol = ( 18.16 ) mGy, DLP = ( 1168.24 ) mGycm TECHNIQUE: Transaxial images were obtained from the dome of the diaphragm to the symphysis pubis without oral contrast. IV 100mL Isovue-300 was administered. Sagittal and coronal images were reconstructed. Individualized dose optimization techniques were used for this CT. COMPARISON: None. FINDINGS: The visualized lung bases are unremarkable. The visualized portions of the heart are within normal limits. Normal liver. There is non-visualization of the gallbladder, which may be secondary to either contraction or a prior cholecystectomy. Normal spleen. Normal pancreas. Normal bilateral adrenal glands. Normal right kidney. Normal left kidney. Normal visualized ureters. Stomach is collapsed but otherwise unremarkable. Normal small intestine. There is diffuse wall thickening of the colon from the cecum to rectum with mild stranding. Diverticular changes are seen in the descending and sigmoid colon. The findings are suggestive of pancolitis. The appendix is visualized and appears normal. There is diffuse atherosclerotic calcification of the abdominal aorta with elongation and tortuosity, but without a demonstrated aneurysm. Normal inferior vena cava. Normal retroperitoneum. Pelvic structures are poorly visualized due to scatter artifact from bilateral hip replacements. No free air or free fluid is seen within the peritoneal cavity. Normal abdominal wall. There are diffuse degenerative changes of the visualized lumbar spine with mild scoliosis.. There are bilateral hip replacements. CT/Abdomen/Pelvis W IV Cont ONLY IMPRESSION: 1. Pancolitis. Question C. difficile infection. 2. Limited visualization of the pelvic structures due to scatter artifact from bilateral hip replacements. 3. Status post cholecystectomy. 4. Degenerative changes of the lumbar spine Electronically Signed: Faizan Dodge DO at 17:13 EST Tel [phone], Service support ,
--- NOTE | 2020-11-08 17:49 | HP.PCM_ITS ---
Problem List (1) Pancolitis Status: Acute (2) Hyponatremia Status: Acute (3) CAD (coronary artery disease) Status: Chronic Qualifiers: Coronary Disease-Associated Artery/Lesion type: unspecified vessel or lesion type [place] vs. transplanted heart: unspecified whether [place] or transplanted heart Associated angina: angina presence unspecified Qualified Code(s): I25.10 - Atherosclerotic heart disease of [place] coronary artery without angina pectoris (4) Chronic anemia Status: Chronic (5) Hyperlipidemia Status: Acute Qualifiers: Hyperlipidemia type: unspecified Qualified Code(s): E78.5 - Hyperlipidemia, unspecified (6) Anxiety and depression Status: Chronic (7) Hypertension Status: Chronic Qualifiers: Hypertension type: unspecified Qualified Code(s): I10 - Essential (primary) hypertension (8) Obstructive sleep apnea Status: Chronic Comment: Per sleep study done 05/02/2016 Dr. Emmanuel Barnett [facility] (9) Hypothyroidism Status: Chronic Qualifiers: Hypothyroidism type: unspecified Qualified Code(s): E03.9 - Hypothyroidism, unspecified (10) GERD (gastroesophageal reflux disease) Status: Chronic Qualifiers: Esophagitis presence: esophagitis presence not specified Qualified Code(s): K21.9 - Gastro-esophageal reflux disease without esophagitis History of Present Illness Date of Admission: 11/08/20 Chief Complaint: Diarrhea with associated bleeding/clots The patient is a 75 y/o F w/ PMHx: HELENA, CAD s/p PCI EZEKIEL prox diag 06/2019, Hypothyroidism, Chronic anemia/Fe deficiency anemia, Anxiety and Depression, G ERD, HTN, HLD who presents to the [facility] ED on 11/08/20 with history of onset severe diarrhea with mild abdominal cramping associated, ongoing since the prior Friday initially watery with associated blood-tinged initially now passing large clots associated with general malaise, fatigue with no fever, nausea, emesis. Patient denies any recent ill contacts. She does note that she drinks some soy milk which was abnormal in color but tasted okay and this was several days prior to the onset of her diarrhea. Work-up in the ED included T 98.4, heart rate 97, BP 121/74, respiratory rate 18, 99% on room air, unremarkable orthostatic vital signs, CBC with WC 9.7, hemoglobin 13.4, platelet 355 without marked shift, CMP with sodium 128, chloride 96, BUN/creatinine 47/1.17, glucose 122, lactic acid 1.7, alk phos 169, enteric bacteria, C. difficile and O&P pending per ED physician, SARS rapid Covid antigen negative, type and screen O+ with antibody negative per ED physician, CT abdomen and pelvis with evidence of pancolitis, questionable possible C. difficile infection, status post cholecystectomy evident, degenerative changes of the lumbar spine. In the ED patient ministered normal saline, Flagyl and Rocephin following discussions with the ED physician. Past Medical History Past Medical History (Chronic Problems): Chronic Problems (Last Reviewed 03/31/20 @ 09:37 by Sylvie Cole) Osteoarthritis of right hip (Chronic) MRSA (methicillin resistant Staphylococcus aureus) (Chronic) Sleep apnea (Chronic) Coronary artery disease (Chronic) CAD (coronary artery disease) (Chronic) Chronic anemia (Chronic) Anxiety and depression (Chronic) Stented coronary artery (Chronic 07/16/19) 2.5 X 16 Promus Synergy EZEKIEL to Proximal Diag #1 per DJElena @ [facility], 07/16/2019 Atherosclerosis of coronary artery of [place] heart without angina pectoris (Chronic) Hypertension (Chronic) Obstructive sleep apnea (Chronic) Per sleep study done 05/02/2016 Dr. Emmanuel Barnett [facility] Hypothyroidism (Chronic) GERD (gastroesophageal reflux disease) (Chronic) Allergic rhinitis (Chronic) Depression (Chronic) history of right axillary wound (Chronic) Closed fracture of left proximal tibia (Chronic) Osteoarthritis (Chronic) Osteoarthritis of left knee (Chronic) History of total left knee replacement (Chronic 09/03/16) Per Dr. Oc Chan Medical History: Medical History (Last Reviewed 03/31/20 @ 09:37 by Sylvie Cole) Atherosclerosis of coronary artery of [place] heart without angina pectoris (Chronic) I25.10 Abnormal nuclear stress test (Acute) R94.39 Mild apical and distal anterior ischemia per Pharm Nuc stress test done 07/01/2019 @[facility] Obstructive sleep apnea (Chronic) G47.33 Per sleep study done 05/02/2016 Dr. Emmanuel Barnett [facility] Allergies cat dander Allergy (Intermediate, Verified 11/08/20 15:36) nasal congestion ciprofloxacin [From Cipro] Allergy (Verified 11/08/20 15:36) Hives ciprofloxacin HCl [From Cipro] Allergy (Verified 11/08/20 15:36) Hives clindamycin Allergy (Verified 11/08/20 15:36) Rash doxycycline Allergy (Verified 11/08/20 15:36) Other latex Allergy (Verified 11/08/20 15:36) Hives nitrofurantoin [From Macrobid] Allergy (Verified 11/08/20 15:36) Other Penicillins Allergy (Verified 11/08/20 15:36) Shortness of breath vortioxetine [From Brintellix] Adverse Reaction (Intermediate, Verified 11/08/20 15:36) GI upset methotrexate Adverse Reaction (Unknown, Verified 11/08/20 15:36) unknown trazodone Adverse Reaction (Verified 11/08/20 15:36) Other [place] [employer] Home Medications: Ambulatory Orders Medication Instructions Recorded Levothyroxine [Synthroid] 75 mcg PO DAILY 12/23/13 Losartan Potassium [Cozaar] 50 mg PO DAILY 03/15/19 diphenhydramine HCl 25 mg capsule 25 mg PO QDAY PRN cap 07/12/19 zolpidem 10 mg tablet 10 mg PO QHS PRN tab 07/12/19 duloxetine 60 mg capsule,delayed 60 mg PO DAILY cap 07/13/19 release Loperamide [Imodium] 2 mg PO Q2H PRN PRN 07/19/20 Rosuvastatin Calcium 10 mg PO DAILY 07/19/20 Acetaminophen [Tylenol] 1,000 mg PO Q8H PRN 08/15/20 Aspirin [Aspirin, Baby] 81 mg PO BIDCM 08/15/20 Calcium Carb/Vitamin D [Os-Santiago 1 tab PO BIDCM tab 08/30/20 500MG + D] Esomeprazole Mag Trihydrate 40 mg PO 0600,1700 cap 08/30/20 [Nexium] Clopidogrel Bisulfate [Clopidogrel] 75 mg PO DAILY 11/08/20 Ferrous Sulfate [High Potency Iron] 27 mg PO DAILY 11/08/20 Meloxicam [Mobic] 15 mg PO DAILY PRN PRN 11/08/20 Multivit-Min/Iron/Folic/Lutein 1 tab PO DAILY 11/08/20 [Centrum Silver Women Tablet] Surgical History: Surgical History (Last Reviewed 03/31/20 @ 09:37 by Sylvie Cole) Stented coronary artery (Chronic) Onset Date: 07/16/19 Z95.5 2.5 X 16 Promus Synergy EZEKIEL to Proximal Diag #1 per DJN @ [facility], 07/16/2019 Surgical History: angioplasty - PCI x1., cataract - Bilateral., cholecystectomy, total hip arthroplasty - Bilateral., total knee arthroplasty - Left, hardware removed., tonsillectomy, - - Left tib/fib luis, closed reduction left total hip replacement, revision left total hip replacement. Psychiatric History: Anxiety, Depression [employer] History: No pertinent [employer] history Lives: Alone Smoking Status: Former smoker - Patient quit cigarette tobacco usage in 1982, started when she was 18 years old with 1 pack/day cigarette tobacco usage until she quit. Tobacco Use: Non-smoker Alcohol: None Drugs: None - *Family History Paternal Family History: Family History (Last Reviewed 03/31/20 @ 09:37 by Sylvie Cole) Father Hodgkin disease Mother Lung cancer History Items: Cancer - Father passed at age 29 secondary to Hodgkin's lymphoma. Maternal Family History: Family History (Last Reviewed 03/31/20 @ 09:37 by Sylvie Cole) Father Hodgkin disease Mother Lung cancer History Items: Cancer - Other with a history of lung cancer, underlying history of tobacco use., Hypertension Review of Systems Constitutional: Reports: Anorexia, Malaise, Weakness, Fatigue. Denies: Chills, Fever, Weight Change HEENT: Denies: Head Aches, Sinus Congestion, Sinus Drainage Cardiovascular: Denies: Chest Pain, Palpitations Respiratory: Denies: Cough, Shortness of breath at rest, Sputum production Gastrointestinal: Reports: Abdominal Pain, Diarrhea, - - Bright red blood, clots, tinged.. Denies: Nausea, Vomiting Genitourinary: Denies: Dysuria Musculoskeletal: Reports: Back Pain, Joint Pain, Muscle pain. Denies: Joint Tenderness Skin: Denies: Rash, Wounds Neurological: Denies: Numbness, Tingling, Focal weakness Psychiatric: Reports: Anxiety, Depression. Denies: Homicidal Ideations, Suicidal Ideations Hematologic/ Lymphatic: Reports: Easy Bruising, Easy Bleeding VTE Information - Inpt Only VTE Present on Admission: No VTE Mechan Device Prophylaxis: SCD's VTE Pharm Prophylaxis ordered?: No Reason prophylaxis not ordered:: Medical Contraindication - GI bleeding. Subjective: Patient seated upright in the ED bed, fatigued appearing otherwise no acute distress. Objective: Physical Examination: General: awake, alert, oriented x 3 and cooperative, seated upright in the ED bed, fatigued, no acute distress. Skin: normal color, turgor, no icterus, cyanosis. HEENT: AT/NC, EOMI, PERRLA, dry MM, no carotid bruits or JVD noted. Lungs: Diminished breath sounds, greater bases, moderate effort, no rales, ronchi or wheezing. Heart: Mildly tachycardic with regular rhythm; no gallop, rub audible. Abdomen: soft, obese, mild generalized discomfort with palpation, difficult to discern distention given habitus, mildly hyperactive bowel sounds, difficult to discern HSM secondary to habitus. Extremities: no cyanosis or clubbing, bilateral ankle edema. Neurological: patient awake, alert, oriented as noted; cognitive function intact; pupils equally reactive to light and accomodation; cranial nerves II-XII grossly normal, moving all 4 extremities, no focal deficits, strength moderately global decrease secondary to acute presentation. Psychiatric: affect appears fatigued otherwise normal, no acute evidence of depressive or anxiety feelings. - Physical Exam Vitals/I&O's: Vital Signs Temp Pulse Resp BP Pulse Ox 98.4 F 98 18 107/69 99 11/08/20 15:32 11/08/20 16:32 11/08/20 15:32 11/08/20 16:32 11/08/20 15:32 Weight: 210 lb 1.608 oz Body Mass Index (BMI) 34.9 Microbiology Past 72 Hours 11/08/20 16:34 Mucosa - Nose SARS-CoV-2 Antigen (Rapid) - Final Laboratory Results 11/08/20 15:42: WBC 9.7, RBC 4.51, Hgb 13.4, Hct 40.8, MCV 90.5, MCH 29.7, MCHC 32.8, RDW Std Deviation 44.0 H, RDW Coeff of Papo 13.3, Plt Count 355, MPV 9.0, Immature Gran % (Auto) 0.300, Neut % (Auto) 73.6 H, Lymph % (Auto) 12.7 L, Richardson % (Auto) 10.6 H, Eos % (Auto) 2.5, Baso % (Auto) 0.3, Absolute Neuts (auto) 7.1, Absolute Lymphs (auto) 1.23, Nucleated RBC % 0 11/08/20 15:42: Sodium 128 L, Potassium 3.9, Chloride 96 L, Carbon Dioxide 23.0, Anion Gap 9, BUN 47 H, Creatinine 1.17 H, Estim Creat Clear Calc 36.23, Est GFR (MDRD) Af Amer 58 L, Est GFR (MDRD) Non-Af 48 L, BUN/Creatinine Ratio 40.2 H, Glucose 122 H, Calcium 9.0, Total Bilirubin 0.70, AST 19, ALT 20, Alkaline Phosphatase 169 H, Total Protein 7.6, Albumin 3.6, Globulin 4.0, Albumin/Globulin Ratio 0.9 11/08/20 15:42: Lactic Acid 1.7 11/08/20 15:42: Blood Type O POSITIVE, Antibody Screen NEGATIVE Current Medications Metronidazole (Flagyl) 500 mg in 100 mls @ 100 mls/hr IV X1 ONE Stop: 11/08/20 18:23 Assessment/Plan All Active Problems (Last Reviewed 03/31/20 @ 09:37 by Sylvie Cole) Debility (Acute) Syncope (Acute) Postoperative anemia (Acute) Dislocation of internal left hip prosthesis (Acute) SIADH (syndrome of inappropriate ADH production) (Acute) Hyponatremia (Acute) Pancolitis (Acute) Hyponatremia (Acute) Hyperlipidemia (Acute) Pre-op examination (Acute) Abnormal nuclear stress test (Acute) 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) Status post right hip replacement (Resolved) The patient is a 75 y/o F w/ PMHx: HELENA, CAD s/p PCI EZEKIEL prox diag 06/2019, Hypothyroidism, Chronic anemia/Fe deficiency anemia, Anxiety and Depression, GERD, HTN, HLD who presents to the [facility] ED on 11/08/20 with history of onset s evere diarrhea with mild abdominal cramping associated, ongoing since the prior Friday initially watery with associated blood-tinged initially now passing large clots associated with general malaise, fatigue with no fever, nausea, emesis. 1. Acute pancolitis, possibly C. difficile but no history and no recent antibiotic therapy with associated bleeding: CT A/P w/ evidence of significant pancolitis. Will admit to medical surgical floor, maintain on aggressive hydration, monitor I&Os, maintain NPO status w/ bowel rest, treat with Flagyl and Rocephin given allergy panel, IV famotidine, anti-emetics, pain regimen PRN. Pending ova and parasite, C. difficile, enteric pathogen per ED physician and will alter regimen and treatment as noted above ending these results. We will additionally continue to monitor CBC and if significant recurrent blood clots will obtain serial H&H's. 2. Hyponatremia, hypovolemic: Patient sodium 128, likely secondary to recent GI losses, will continue to judiciously hydrate and repeat CMP in AM. 3. CAD: Status post PCI 06/2019, given greater than 1 year out we will temporarily hold aspirin given bleeding but add back immediately once able, continue losartan, statin therapy, not on beta-roxanna per current list. 4. Chronic anemia, iron deficiency: Admission hemoglobin 13.4, will continue patient iron supplementation, as noted will trend CBC but if further notable clots with diarrhea will trend H&H's. 5. Hypertension: Continue home regimen including losartan with hold parameters or if renal function worsens, PRN hydralazine. 6. Hyperlipidemia: Continue home statin regimen. 7. Hypothyroidism: Continue home synthroid regimen. 8. GERD: Maintain on IV famotidine. 9. Anxiety and depression: We will continue patient home duloxetine regimen. 10. HELENA: We will attempt nightly CPAP. 11. DVT prophylaxis: SCDs, defer any chemoprophylaxis given bleeding with #1 presentation. 12. CODE status: Patient PAYTON is her cousin Naty Mahmood and living will is currently in place. Discussed CODE status at length including difference between FULL code, DNR-CCA and DNR-CC status. Following discussions about the differences in these status, requested DNR-CCA, no intubation status. Advanced Care Planning Face to Face Time: 16 minutes. Inpatient E&M: 02850 Init Hosp L3 Procedures: 28925 Advncd Care Plan 30 Min
[2020-11-08 17:50] VITALS: BP 139/71; PULSE 94; RESP 18; O2SAT 100
--- NOTE | 2020-11-08 18:07 | NURSING ---
MED SURG WHITE VARGAS COLITIS, RECTAL BLEEDING
[2020-11-08 19:30] VITALS: BP 108/60; PULSE 90; RESP 18; TEMP 36.3; O2SAT 100
[2020-11-08 20:00] VITALS: BMI 32.8
[2020-11-08 20:04] VITALS: BMI 32.8
[2020-11-08] MEDS: metroNIDAZOLE 500 MG/100 ML BAG 100 MG IV (20:25)
[2020-11-08 20:26] LABS: Magnesium 2.3 mg/dL (1.6-2.6)
[2020-11-08] MEDS: 0.9% Normal Saline 1,000 ML 125 ML IV (20:35)
[2020-11-08 22:10] VITALS: BP 131/55; PULSE 83; RESP 18; TEMP 37.1; O2SAT 98
[2020-11-08] MEDS: Menthol/Lanolin/Calamine/Znox 113 GM Tube 1 APPLIC TOPICAL (22:16)
[2020-11-08] MEDS: Zolpidem Tartrate 5 MG Tablet 10 MG PO (22:16)
[2020-11-08] MEDS: Acetaminophen 325 MG Tablet 650 MG PO (22:16)
[2020-11-08] MEDS: Losartan Potassium 50 MG Tablet PO (22:23)
[2020-11-08 23:08] VITALS: RESP 16; O2SAT 98
--- NOTE | 2020-11-08 23:15 | CPS ---
Patient has CPAP order to start tonight. Patient said that she would not like to wear a hospital machine unless she absolutely has to.
[2020-11-09 04:20] VITALS: BP 105/51; PULSE 85; RESP 18; TEMP 36.6; O2SAT 97
[2020-11-09] MEDS: 0.9% Normal Saline 1,000 ML 125 ML IV ×2 (05:57→17:06)
[2020-11-09] MEDS: metroNIDAZOLE 500 MG/100 ML BAG 100 MG IV ×3 (05:57→21:44)
[2020-11-09] MEDS: Levothyroxine 75 MCG Tablet PO (05:57)
[2020-11-09] MEDS: 0.9% Saline Lock 10 ML Syringe IV ×2 (05:59→09:20)
[2020-11-09 06:43] LABS: Absolute Lymphocyte Count 1.03 X10^3/uL (0.83-4.51); Absolute Neutrophil Count 3.8 X10^3/uL (2.0-7.7); Basophil# 0.03 X10^3/uL; Basophil% 0.5 % (0-1); Eosinophil# 0.39 X10^3/uL; Eosinophils% 6.5 % (0-5); Hematocrit 32.9 % (37-47); Hemoglobin 10.8 g/dL (12.0-15.0); Lymphocyte # 1.03 X10^3/ul (4.0); Lymphocyte % 17.2 % (19-41); Mean Corp Hgb Conc 32.8 g/dL (32-36); Mean Corpuscular Hgb 29.8 pg (27.0-32.0); Mean Corpuscular Volume 90.6 fL (81-99); Mean Platelet Vol. 8.6 fl (6.2-12.0); Monocyte# 0.77 X10^3/uL; Monocyte% 12.9 % (0-10); NRBC Flagged by Analyzer 0 % (0-5); Neutrophil # 3.75 X10^3/uL (2.7-7.7); Neutrophil % 62.6 % (47-70); Platelet Count 259 K/mm3 (150-450); RBC Distribution Width CV 13.2 % (11.6-14.6); RBC Distribution Width SD 43.6 fl (35.1-43.9); Red Blood Count 3.63 M/mm3 (4.2-5.4)
[2020-11-09 07:08] LABS: ALB/GLOB Ratio 0.8 RATIO (0.9-2.4); AST(SGOT) 15 U/L (15-37); Alanine Aminotransfer ALT/SGPT 15 U/L (13-56); Albumin, Serum 2.6 g/dL (3.2-5.0); Alkaline Phosphatase 136 U/L (45-117); Anion Gap 8 (5-15); BUN 33 mg/dL (7-18); BUN/Creat Ratio 42.2 RATIO (10-20); Calcium,Total 7.7 mg/dL (8.5-10.1); Chloride 105 mmol/L (98-107); Creatinine, Serum 0.78 mg/dL (0.55-1.02); EST Glomerular Filtration Rate 76 mL/min (>60); Est Glom Filt Rate - Afr Amer 92 mL/min (>60); Estimated Creatinine Clearance 42.39 ml/min; Globulin 3.1 g/dL (2.2-4.2); Glucose 87 mg/dL (74-106); Protein, Total 5.7 g/dL (6.4-8.2); Sodium Level 134 mmol/L (136-145)
[2020-11-09 07:52] VITALS: BP 101/52; PULSE 86; RESP 16; TEMP 36.7; O2SAT 96
--- NOTE | 2020-11-09 08:16 | PCM.PN.HOSP ---
Patient Problems: Active and Suspected Problems (Last Reviewed 03/31/20 @ 09:37 by Sylvie Cole) Pancolitis (Acute) Hyponatremia (Acute) Hyperlipidemia (Acute) Reason for Visit: Hematochezia Pancolitis Subjective: Patient is a 75-year-old female who presented with diarrhea with blood which started days prior to her admission. Elected to present to the emergency department after she started passing clots Objective: GENERAL: cooperative HEENT: Atraumatic; EYES; Anicteric, Normal Conjunctiva NECK; supple, normal thyroid, RESPIRATORY: Diminished to auscultation CARDIOVASCULAR: Regular S1 S2, GI: soft, normoactive bowel sounds, : No Renal angle tenderness; EXTREMITIES: No edema, no clubbing, MUSCULOSKELETAL: no muscle waisting NEURO: Awake; no lateralizing signs. SKIN: No Rash PSYCH; Flat affect Vitals/I&O's: Vital Signs Temp Pulse Resp BP Pulse Ox 98.0 F 86 16 101/52 L 96 11/09/20 07:52 11/09/20 07:52 11/09/20 07:52 11/09/20 07:52 11/09/20 07:52 Oxygen Delivery Method Room Air Weight: 89.4 kg Body Mass Index (BMI) 32.8 Intake and Output for Last 24 Hours 11/07/20 11/08/20 11/09/20 23:59 23:59 23:59 Intake Total 1150 / 1150 1100 / 1100 Balance 1150 / 1150 1100 / 1100 Microbiology Past 72 Hours 11/08/20 17:45 Stool C. difficile DNA Amplification - Final 11/08/20 16:34 Mucosa - Nose SARS-CoV-2 Antigen (Rapid) - Final Laboratory Results 11/08/20 15:42: WBC 9.7, RBC 4.51, Hgb 13.4, Hct 40.8, MCV 90.5, MCH 29.7, MCHC 32.8, RDW Std Deviation 44.0 H, RDW Coeff of Papo 13.3, Plt Count 355, MPV 9.0, Immature Gran % (Auto) 0.300, Neut % (Auto) 73.6 H, Lymph % (Auto) 12.7 L, Yancey % (Auto) 10.6 H, Eos % (Auto) 2.5, Baso % (Auto) 0.3, Absolute Neuts (auto) 7.1, Absolute Lymphs (auto) 1.23, Nucleated RBC % 0 11/08/20 15:42: Sodium 128 L, Potassium 3.9, Chloride 96 L, Carbon Dioxide 23.0, Anion Gap 9, BUN 47 H, Creatinine 1.17 H, Estim Creat Clear Calc 36.23, Est GFR (MDRD) Af Amer 58 L, Est GFR (MDRD) Non-Af 48 L, BUN/Creatinine Ratio 40.2 H, Glucose 122 H, Calcium 9.0, Total Bilirubin 0.70, AST 19, ALT 20, Alkaline Phosphatase 169 H, Total Protein 7.6, Albumin 3.6, Globulin 4.0, Albumin/Globulin Ratio 0.9 11/08/20 15:42: Lactic Acid 1.7 11/08/20 15:42: Blood Type O POSITIVE, Antibody Screen NEGATIVE 11/08/20 15:42: Magnesium 2.3 11/09/20 06:26: WBC 6.0, RBC 3.63 L, Hgb 10.8 L, Hct 32.9 L, MCV 90.6, MCH 29.8, MCHC 32.8, RDW Std Deviation 43.6, RDW Coeff of Papo 13.2, Plt Count 259, MPV 8.6, Immature Gran % (Auto) 0.300, Neut % (Auto) 62.6, Lymph % (Auto) 17.2 L, Yancey % (Auto) 12.9 H, Eos % (Auto) 6.5 H, Baso % (Auto) 0.5, Absolute Neuts (auto) 3.8, Absolute Lymphs (auto) 1.03, Nucleated RBC % 0 11/09/20 06:26: Sodium 134 L, Potassium 4.0, Chloride 105, Carbon Dioxide 21.0, Anion Gap 8, BUN 33 H, Creatinine 0.78, Estim Creat Clear Calc 42.39, Est GFR (MDRD) Af Amer 92, Est GFR (MDRD) Non-Af 76, BUN/Creatinine Ratio 42.2 H, Glucose 87, Calcium 7.7 L, Total Bilirubin 0.40, AST 15, ALT 15, Alkaline Phosphatase 136 H, Total Protein 5.7 L, Albumin 2.6 L, Globulin 3.1, Albumin/Globulin Ratio 0.8 L Current Medications Acetaminophen (Acetaminophen 325 Mg Tablet) 650 mg PO Q6H PRN PRN PRN Reason: Pain Score 1-10/Temp > 100.7 F Last Admin: 11/08/20 22:16 Dose: 650 mg Documented by: Al Hydroxide/Mg Hydroxide (Mag Hydrox/Al Hydrox/Simeth 30 Ml Udc) 30 ml PO Q6H PRN PRN PRN Reason: Gastric Burning Atorvastatin Calcium (Atorvastatin Calcium 20 Mg Tablet) 20 mg PO DAILY [facility] Calamine/Phenol (Menthol/Lanolin/Calamine/Znox 113 Gm Tube) 1 applic TOPICAL 4X/DAY [facility]; Protocol Last Admin: 11/08/20 22:16 Dose: 1 applicatio Documented by: Duloxetine HCl (Duloxetine Hcl 60 Mg Capsule) 60 mg PO DAILY [facility] Furosemide (Furosemide 40 Mg/4 Ml Vial) 40 mg IV BID@1000,1800 [facility] Stop: 11/09/20 18:01 Guaifenesin (Guaifenesin 10 Ml Udc (200mg/10ml)) 20 ml PO Q4H PRN PRN PRN Reason: COUGH Hydralazine HCl (Hydralazine 20 Mg/Ml Vial) 10 mg IV Q4H PRN PRN PRN Reason: SBP > 160 Sodium Chloride () 1,000 mls @ 125 mls/hr IV .Q8H [facility] Last Infusion: 11/09/20 06:57 Dose: 125 mls/hr Documented by: Ceftriaxone Sodium 2 gm/ (Sodium Chloride) 50 mls @ 100 mls/hr IV Q24 [facility] Famotidine 20 mg/ Sodium (Chloride) 10 mls @ 300 mls/hr IV DAILY [facility] Sodium Chloride () 250 mls @ 15 mls/hr IV .[id number] PRN PRN Reason: Saline Flush Sodium Chloride () 250 mls @ 15 mls/hr IV .[id number] PRN PRN Reason: Additional IVPB Infusion Metronidazole (Flagyl) 500 mg in 100 mls @ 100 mls/hr IV Q8 [facility] Last Infusion: 11/09/20 06:57 Dose: Infused Documented by: Levothyroxine Sodium (Levothyroxine 75 Mcg Tablet) 75 mcg PO DAILY@0600 [facility] Last Admin: 11/09/20 05:57 Dose: 75 mcg Documented by: Losartan Potassium (Losartan Potassium 50 Mg Tablet) 50 mg PO QHS [facility] Last Admin: 11/08/20 22:23 Dose: 50 mg Documented by: Melatonin (Melatonin 3 Mg Tablet) 3 mg PO QHS PRN PRN PRN Reason: INSOMNIA Morphine Sulfate (Morphine 2 Mg/Ml Syringe) 2 mg IV Q3H PRN PRN PRN Reason: Pain Score 6-10 Nitroglycerin (Nitroglycerin (Inpatient Use) 0.4 Mg Tab.Subl) 0.4 mg SUBLINGUAL Q5M PRN PRN Reason: CARDIAC/CHEST PAIN Ondansetron HCl (Ondansetron 4 Mg/2 Ml Vial) 4 mg IV Q8H PRN PRN PRN Reason: NAUSEA/VOMITING Oxycodone HCl (Oxycodone 5 Mg Tablet) 5 mg PO Q4H PRN PRN PRN Reason: Pain Score 4-5 Polysaccharide Iron Complex (Iron Polysaccharide Complex 150 Mg Capsule) 150 mg PO DAILY [facility] Prochlorperazine Edisylate (Prochlorperazine 10 Mg/2 Ml Vial) 5 mg IV Q4H PRN PRN PRN Reason: Breakthrough nausea/vomiting Sodium Chloride (0.9% Saline Lock 10 Ml Syringe) 10 - 40 ml IV UD PRN PRN Reason: SALINE FLUSH Last Admin: 11/09/20 05:59 Dose: 10 ml Documented by: Throat Lozenges (Benzocaine/Menthol 1 Lozenge) 1 lozenge MUCOUS MEM Q2H PRN PRN PRN Reason: SORE THROAT Zolpidem Tartrate (Zolpidem Tartrate 5 Mg Tablet) 10 mg PO QHS PRN PRN Reason: INSOMNIA Last Admin: 11/08/20 22:16 Dose: 10 mg Documented by: STROKE Vital Signs/Narrative: Vital Signs Temp Pulse Resp BP Pulse Ox 11/09/20 07:52 98.0 F 86 16 101/52 L 96 11/09/20 04:20 97.8 F 85 18 105/51 L 97 Medical Necessity - Tobacco Use Smoking Status: Former smoker - Patient quit cigarette tobacco usage in 1982, started when she was 18 years old with 1 pack/day cigarette tobacco usage until she quit. Tobacco Use: Non-smoker Assessment/Plan All Active Problems (Last Reviewed 03/31/20 @ 09:37 by Sylvie Cole) Debility (Acute) Syncope (Acute) Postoperative anemia (Acute) Dislocation of internal left hip prosthesis (Acute) SIADH (syndrome of inappropriate ADH production) (Acute) Hyponatremia (Acute) Pancolitis (Acute) Hyponatremia (Acute) Hyperlipidemia (Acute) Pre-op examination (Acute) Abnormal nuclear stress test (Acute) 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) Status post right hip replacement (Resolved) Patient is a 75-year-old female who presented with diarrhea with blood which started days prior to her admission. Elected to present to the emergency department after she started passing clots studies obtained on admission consistent with pancolitis admitted to regular nursing floor for further management 1. Pancolitis ?Suspected to be secondary to C. difficile colitis admitted to regular nursing floor placed under enteric precautions started on Flagyl and Rocephin while stool for C. difficile was sent to rule out C. difficile 2. Hypovolemic hyponatremia Secondary to dehydration from above managed with IV fluid with subsequent monitoring of electrolyte 3. Anemia -secondary to acute blood loss anemia from above monitoring H&H with plans to transfuse if hemoglobin falls below 7 4. Coronary artery disease ?Status post PCI in June 2019 Patient aspirin currently on hold we will continue with ARB as well as statin therapy 5. Renal insufficiency ?Resolved with rehydration 6. Hypertension - Blood pressure controlled, home medications continued with dose adjustment as needed 7. Dyslipidemia -Patient is on statin therapy, continued at home dose 8. Hypothyroidism - Patient is on levothyroxine home dose continued 9. GERD ?On H2 blockers 10. Depression with anxiety ?Patient is on duloxetine did continue 11. Obstructive sleep apnea ?Patient is on CPAP at night 12. DVT prophylaxis ?SCDs only Inpatient E&M: 23519 [facility] L[facility]
[2020-11-09 08:45] VITALS: O2SAT 96
[2020-11-09] MEDS: Iron Polysaccharide Complex 150 MG CAPSULE PO (09:20)
[2020-11-09] MEDS: Atorvastatin Calcium 20 MG Tablet PO (09:20)
[2020-11-09] MEDS: DULoxetine Hcl 60 MG Capsule PO (09:21)
[2020-11-09] MEDS: Menthol/Lanolin/Calamine/Znox 113 GM Tube 1 APPLIC TOPICAL ×4 (09:21→21:44)
[2020-11-09] MEDS: Famotidine 200 MG/20 ML MDV 20 MG in 0.9% Normal Saline (Pres. free 8 ML 300 MG IV (09:21)
[2020-11-09 13:41] VITALS: BP 120/53; PULSE 83; RESP 16; TEMP 36.6; O2SAT 100
--- NOTE | 2020-11-09 14:20 | CASEMGMT ---
RN CM PHYSIATRIST CM to room to meet with patient for initial transition planning/care coordination assessment. MATI BURCIAGA introduced self and role at [facility]. Pt voices understanding and consents to assessment at this time. Pt resting in bed in no distress at this time. Pt is A/O at this time and answers all questions appropriately. Care providers, pharmacy, and demographics verified/updated at this time. PCP: Dr Tam--has appt 11/15 Specialists: Dr Chan-has appt 11/16 [facility] Community plan Prescription Benefit: Yes Living Will/HPOA: Has both LW and Healthcare POA is Naty, cousin LNOK: Cousin, Naty/POA Living Arrangements: Lives alone in 2nd story apt w/approx 14 stairs up to apartment. Pt states she does okay w/the stairs--that she just takes them one step at a time. Pt states she rarely has to leave her home, so does not have to use the stairs often. Independent with ADL's/personal care. Pt manages her own medications/ appts. Has Passport services and CM is Elsie Leong--pt states through [facility]. Has aides MWF for 2 hrs each day-they do laundry/meals/grocery shopping/brain picker medications/run errands. Transportation: Through insurance or cousins DME: States has the following DME: transfer bench, BSC, hand held shower, walker, medical alert button, CPAP Pt states no need for further DME at this time. HHC/SNF: TCU and [facility]. Pt declines need for HHC or OP therapy at this time. Made aware, if decides in the future she would like either, to discuss options with her PCP. She voices understanding. Pt wishes to return home w/resumption of aides and states has no concerns with going home at time of discharge. CM to follow for any further discharge planning/needs. Pt voices no further concerns/needs at this time. Advised pt to ask for CM if any further questions/concerns/needs arise. Voices understanding. PLAN: Home w/resumption of aide services and discharge plans in place. PT/OT zoieals pending Dionicio PATTON RN, CM
--- NOTE | 2020-11-09 14:37 | CASEMGMT ---
Social Work Note AMAURY received update that pt has CM Elsie Leong through [facility]. AMAURY placed a call to [facility], spoke with Elsie with drying equipment operator. Elsie states pt is not active with them, there are no Elsie Leong CM through [facility]. Elsie asked where pt lives, AMUARY said [facility], Elsie confirms they would be the [facility] to provide services but pt is not active with them. Deja Fine UNIX SYSTEMS ADMINISTRATOR, ENGRAVING OPERATOR
[2020-11-09] MEDS: Ensure Clear 120 ML Liquid PO ×3 (15:26→21:44)
--- NOTE | 2020-11-09 16:33 | CHAPLAIN ---
Type of Pastoral Visit _x__ Initial Visit ___ Follow-up Visit ___ On-call Visit ___ General Patient Visit ___ Spiritual Assessment ___ Family Conference ___ Bereavement ___ Rapid Response ___ Code Blue ___ Other (describe below) Pastoral Care Referral From _x__ Patient ___ Family ___ Nurse ___ Physician ___ Survival Equipment Repairer ___ Fur Liner ___ Other (describe below) Sacrament/Intervention _x__ Active listening ___ Anointing ___ Zoroastrian ___ Bereavement ___ Communion _x__ Ayala exploration ___ _x__ Life review _x__ Prayer ___ Reconciliation ___ Sacrament of Sick _x__ Supportive presence ___ Wedding ___ Other (describe below) Pastoral Comments patient was seen in previous admission; pt gives review of her life since last admission; pt talks about her pet and love of animals and nature; pt has several questions about spiritual matters that she asks; prayer welcomed
[2020-11-09 19:40] VITALS: BP 127/75; PULSE 74; RESP 18; TEMP 36.7; O2SAT 99
[2020-11-09] MEDS: Losartan Potassium 50 MG Tablet PO (21:45)
[2020-11-09] MEDS: Zolpidem Tartrate 5 MG Tablet 10 MG PO (21:51)
[2020-11-09] MEDS: Acetaminophen 325 MG Tablet 650 MG PO (21:51)
[2020-11-10 01:55] VITALS: BP 94/45; PULSE 75; RESP 16; TEMP 36.7; O2SAT 95
[2020-11-10] MEDS: 0.9% Normal Saline 1,000 ML 125 ML IV ×3 (01:58→20:03)
[2020-11-10] MEDS: Levothyroxine 75 MCG Tablet PO (05:01)
[2020-11-10] MEDS: metroNIDAZOLE 500 MG/100 ML BAG 100 MG IV ×3 (05:01→22:01)
[2020-11-10 08:00] VITALS: BP 128/55; PULSE 73; RESP 16; TEMP 36.4; O2SAT 98
--- NOTE | 2020-11-10 08:47 | PCM.PN.HOSP ---
Patient Problems: Active and Suspected Problems (Last Reviewed 03/31/20 @ 09:37 by Sylvie Cole) Pancolitis (Acute) Hyponatremia (Acute) Hyperlipidemia (Acute) Reason for Visit: Hematochezia Pancolitis Subjective: Patient is a 75-year-old female who presented with diarrhea with blood which started days prior to her admission. Elected to present to the emergency department after she started passing clots 11/10/2020; patient seen still has loose bowel movement but she is no longer passing blood clots or any blood in the stool plan is to advance patient's diet as tolerated Objective: GENERAL: cooperative HEENT: Atraumatic; EYES; Anicteric, Normal Conjunctiva NECK; supple, normal thyroid, RESPIRATORY: Diminished to auscultation CARDIOVASCULAR: Regular S1 S2, GI: soft, normoactive bowel sounds, : No Renal angle tenderness; EXTREMITIES: No edema, no clubbing, MUSCULOSKELETAL: no muscle waisting NEURO: Awake; no lateralizing signs. SKIN: No Rash PSYCH; Flat affect Vitals/I&O's: Vital Signs Temp Pulse Resp BP Pulse Ox 98.1 F 75 16 94/45 L 95 11/10/20 01:55 11/10/20 01:55 11/10/20 01:55 11/10/20 01:55 11/10/20 01:55 Oxygen Delivery Method Room Air Weight: 89.4 kg Body Mass Index (BMI) 32.8 Intake and Output for Last 24 Hours 11/08/20 11/09/20 11/10/20 23:59 23:59 23:59 Intake Total 1150 / 1150 4239.17 / 4239.17 885.42 / 885.42 Balance 1150 / 1150 4239.17 / 4239.17 885.42 / 885.42 Microbiology Past 72 Hours 11/08/20 17:45 Stool Enteric Bacteriology - Final 11/08/20 17:45 Stool C. difficile DNA Amplification - Final 11/08/20 16:34 Mucosa - Nose SARS-CoV-2 Antigen (Rapid) - Final Current Medications Acetaminophen (Acetaminophen 325 Mg Tablet) 650 mg PO Q6H PRN PRN PRN Reason: Pain Score 1-10/Temp > 100.7 F Last Admin: 11/09/20 21:51 Dose: 650 mg Documented by: Al Hydroxide/Mg Hydroxide (Mag Hydrox/Al Hydrox/Simeth 30 Ml Udc) 30 ml PO Q6H PRN PRN PRN Reason: Gastric Burning Atorvastatin Calcium (Atorvastatin Calcium 20 Mg Tablet) 20 mg PO DAILY [facility] Last Admin: 11/09/20 09:20 Dose: 20 mg Documented by: Calamine/Phenol (Menthol/Lanolin/Calamine/Znox 113 Gm Tube) 1 applic TOPICAL 4X/DAY [facility]; Protocol Last Admin: 11/09/20 21:44 Dose: 1 applicatio Documented by: Duloxetine HCl (Duloxetine Hcl 60 Mg Capsule) 60 mg PO DAILY [facility] Last Admin: 11/09/20 09:21 Dose: 60 mg Documented by: Guaifenesin (Guaifenesin 10 Ml Udc (200mg/10ml)) 20 ml PO Q4H PRN PRN PRN Reason: COUGH Hydralazine HCl (Hydralazine 20 Mg/Ml Vial) 10 mg IV Q4H PRN PRN PRN Reason: SBP > 160 Sodium Chloride () 1,000 mls @ 125 mls/hr IV .Q8H [facility] Last Infusion: 11/10/20 06:01 Dose: 125 mls/hr Documented by: Ceftriaxone Sodium 2 gm/ (Sodium Chloride) 50 mls @ 100 mls/hr IV Q24 [facility] Last Infusion: 11/09/20 09:50 Dose: Infused Documented by: Famotidine 20 mg/ Sodium (Chloride) 10 mls @ 300 mls/hr IV DAILY [facility] Last Infusion: 11/09/20 09:23 Dose: Infused Documented by: Sodium Chloride () 250 mls @ 15 mls/hr IV .[id number] PRN PRN Reason: Saline Flush Sodium Chloride () 250 mls @ 15 mls/hr IV .[id number] PRN PRN Reason: Additional IVPB Infusion Metronidazole (Flagyl) 500 mg in 100 mls @ 100 mls/hr IV Q8 [facility] Last Infusion: 11/10/20 06:01 Dose: Infused Documented by: Levothyroxine Sodium (Levothyroxine 75 Mcg Tablet) 75 mcg PO DAILY@0600 [facility] Last Admin: 11/10/20 05:01 Dose: 75 mcg Documented by: Losartan Potassium (Losartan Potassium 50 Mg Tablet) 50 mg PO QHS [facility] Last Admin: 11/09/20 21:45 Dose: 50 mg Documented by: Melatonin (Melatonin 3 Mg Tablet) 3 mg PO QHS PRN PRN PRN Reason: INSOMNIA Morphine Sulfate (Morphine 2 Mg/Ml Syringe) 2 mg IV Q3H PRN PRN PRN Reason: Pain Score 6-10 Nitroglycerin (Nitroglycerin (Inpatient Use) 0.4 Mg Tab.Subl) 0.4 mg SUBLINGUAL Q5M PRN PRN Reason: CARDIAC/CHEST PAIN Nutritional Formula (Lactose Free) (Ensure Clear 120 Ml Liquid) 120 ml PO 4X/DAY [facility] Last Admin: 11/09/20 21:44 Dose: 120 ml Documented by: Ondansetron HCl (Ondansetron 4 Mg/2 Ml Vial) 4 mg IV Q8H PRN PRN PRN Reason: NAUSEA/VOMITING Oxycodone HCl (Oxycodone 5 Mg Tablet) 5 mg PO Q4H PRN PRN PRN Reason: Pain Score 4-5 Polysaccharide Iron Complex (Iron Polysaccharide Complex 150 Mg Capsule) 150 mg PO DAILY [facility] Last Admin: 11/09/20 09:20 Dose: 150 mg Documented by: Prochlorperazine Edisylate (Prochlorperazine 10 Mg/2 Ml Vial) 5 mg IV Q4H PRN PRN PRN Reason: Breakthrough nausea/vomiting Sodium Chloride (0.9% Saline Lock 10 Ml Syringe) 10 - 40 ml IV UD PRN PRN Reason: SALINE FLUSH Last Admin: 11/09/20 09:20 Dose: 10 ml Documented by: Throat Lozenges (Benzocaine/Menthol 1 Lozenge) 1 lozenge MUCOUS MEM Q2H PRN PRN PRN Reason: SORE THROAT Zolpidem Tartrate (Zolpidem Tartrate 5 Mg Tablet) 10 mg PO QHS PRN PRN Reason: INSOMNIA Last Admin: 11/09/20 21:51 Dose: 10 mg Documented by: Medical Necessity - Tobacco Use Smoking Status: Former smoker - Patient quit cigarette tobacco usage in 1982, started when she was 18 years old with 1 pack/day cigarette tobacco usage until she quit. Tobacco Use: Non-smoker Assessment/Plan All Active Problems (Last Reviewed 03/31/20 @ 09:37 by Sylvie Cole) Debility (Acute) Syncope (Acute) Postoperative anemia (Acute) Dislocation of internal left hip prosthesis (Acute) SIADH (syndrome of inappropriate ADH production) (Acute) Hyponatremia (Acute) Pancolitis (Acute) Hyponatremia (Acute) Hyperlipidemia (Acute) Pre-op examination (Acute) Abnormal nuclear stress test (Acute) 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) Status post right hip replacement (Resolved) Patient is a 75-year-old female who presented with diarrhea with blood which started days prior to her admission. Elected to present to the emergency department after she started passing clots studies obtained on admission consistent with pancolitis admitted to regular nursing floor for further management 1. Pancolitis ?Suspected to be secondary to C. difficile colitis admitted to regular nursing floor placed under enteric precautions started on Flagyl and Rocephin while stool for C. difficile was sent to rule out C. difficile - 11/10/2020; patient seen still has loose bowel movement but she is no longer passing blood clots or any blood in the stool plan is to advance patient's diet as tolerated stool for C. difficile came back negative. 2. Hypovolemic hyponatremia Secondary to dehydration from above managed with IV fluid with subsequent monitoring of electrolyte 3. Anemia -secondary to acute blood loss anemia from above monitoring H&H with plans to transfuse if hemoglobin falls below 7 4. Coronary artery disease ?Status post PCI in June 2019 Patient aspirin currently on hold we will continue with ARB as well as statin therapy 5. Renal insufficiency ?Resolved with rehydration 6. Hypertension - Blood pressure controlled, home medications continued with dose adjustment as needed 7. Dyslipidemia -Patient is on statin therapy, continued at home dose 8. Hypothyroidism - Patient is on levothyroxine home dose continued 9. GERD ?On H2 blockers 10. Depression with anxiety ?Patient is on duloxetine did continue 11. Obstructive sleep apnea ?Patient is on CPAP at night 12. DVT prophylaxis ?SCDs only Inpatient E&M: 74948 Subs Hosp L2
[2020-11-10] MEDS: Menthol/Lanolin/Calamine/Znox 113 GM Tube 1 APPLIC TOPICAL ×4 (10:32→22:00)
[2020-11-10] MEDS: Atorvastatin Calcium 20 MG Tablet PO (10:33)
[2020-11-10] MEDS: DULoxetine Hcl 60 MG Capsule PO (10:34)
[2020-11-10] MEDS: Iron Polysaccharide Complex 150 MG CAPSULE PO (10:35)
[2020-11-10] MEDS: Famotidine 200 MG/20 ML MDV 20 MG in 0.9% Normal Saline (Pres. free 8 ML 300 MG IV (10:37)
[2020-11-10] MEDS: Ensure Clear 120 ML Liquid PO ×2 (14:25→18:21)
[2020-11-10 14:30] VITALS: BP 131/66; PULSE 80; RESP 18; TEMP 36.5; O2SAT 97
[2020-11-10] MEDS: Acetaminophen 325 MG Tablet 650 MG PO (18:26)
[2020-11-10 20:01] VITALS: BP 124/88; PULSE 82; RESP 18; TEMP 36.4; O2SAT 100
[2020-11-10] MEDS: Losartan Potassium 50 MG Tablet PO (22:01)
[2020-11-10] MEDS: Zolpidem Tartrate 5 MG Tablet 10 MG PO (22:01)
--- NOTE | 2020-11-10 23:15 | PCS.PANDOC ---
PANDEMIC DOCUMENTATION INITIATED: Date: 11/08 Time: 1899
[2020-11-11 02:51] VITALS: BP 136/67; PULSE 77; RESP 18; TEMP 36.9; O2SAT 99
[2020-11-11] MEDS: 0.9% Normal Saline 1,000 ML 125 ML IV (04:41)
[2020-11-11] MEDS: Levothyroxine 75 MCG Tablet PO (05:57)
[2020-11-11] MEDS: metroNIDAZOLE 500 MG/100 ML BAG 100 MG IV (05:57)
[2020-11-11 07:11] VITALS: O2SAT 95
[2020-11-11 08:55] VITALS: BP 159/88; PULSE 69; RESP 18; TEMP 36.6; O2SAT 98
--- NOTE | 2020-11-11 09:00 | PCM.DC ---
- Discharge Diagnoses Current Active Problems: Current Active and Chronic Problems (Last Reviewed 03/31/20 @ 09:37 by Sylvie Cole) Pancolitis (Acute) Hyponatremia (Acute) CAD (coronary artery disease) (Chronic) Chronic anemia (Chronic) Hyperlipidemia (Acute) Anxiety and depression (Chronic) Hypertension (Chronic) Obstructive sleep apnea (Chronic) Per sleep study done 05/02/[address] Dr[address] [facility] Hypothyroidism (Chronic) GERD (gastroesophageal reflux disease) (Chronic) You will use the following diet at home:: No restrictions Discharge Activity: Return to Normal Activity Allergies/Adverse Reactions: Allergies cat dander Allergy (Intermediate, Verified 11/08/20 15:36) nasal congestion ciprofloxacin [From Cipro] Allergy (Verified 11/08/20 15:36) Hives ciprofloxacin HCl [From Cipro] Allergy (Verified 11/08/20 15:36) Hives clindamycin Allergy (Verified 11/08/20 15:36) Rash doxycycline Allergy (Verified 11/08/20 15:36) Other latex Allergy (Verified 11/08/20 15:36) Hives nitrofurantoin [From Macrobid] Allergy (Verified 11/08/20 15:36) Other Penicillins Allergy (Verified 11/08/20 15:36) Shortness of breath vortioxetine [From Brintellix] Adverse Reaction (Intermediate, Verified 11/08/20 15:36) GI upset methotrexate Adverse Reaction (Unknown, Verified 11/08/20 15:36) unknown trazodone Adverse Reaction (Verified 11/08/20 15:36) Other [place] FEELING Medications to take at Discharge Levothyroxine [Synthroid] 75 mcg PO DAILY 12/23/13 Losartan Potassium [Cozaar] 50 mg PO DAILY 03/15/19 diphenhydramine HCl 25 mg capsule 25 mg PO QDAY PRN cap 07/12/19 zolpidem 10 mg tablet 10 mg PO QHS PRN tab 07/12/19 duloxetine 60 mg capsule,delayed release 60 mg PO DAILY cap 07/13/19 Rosuvastatin Calcium 10 mg PO DAILY 07/19/20 Acetaminophen [Tylenol] 1,000 mg PO Q8H PRN 08/15/20 Aspirin [Aspirin, Baby] 81 mg PO BIDCM 08/15/20 Calcium Carb/Vitamin D [Os-Santiago 500MG + D] 1 tab PO BIDCM tab 08/30/20 Esomeprazole Mag Trihydrate [Nexium] 40 mg PO 0600,1700 cap 08/30/20 Clopidogrel Bisulfate [Clopidogrel] 75 mg PO DAILY 11/08/20 Ferrous Sulfate [High Potency Iron] 27 mg PO DAILY 11/08/20 Meloxicam [Mobic] 15 mg PO DAILY PRN PRN 11/08/20 Multivit-Min/Iron/Folic/Lutein [Centrum Silver Women Tablet] 1 tab PO DAILY 11/08/20 Cefdinir [Omnicef [equiv]] 300 mg PO Q12H #14 cap 11/11/20 Metronidazole 500 mg PO TID #21 tab 11/11/20 The following prescriptions were given: Metronidazole 500 mg PO TID #21 tab Transmission Status: Pending to [facility] Cefdinir [Omnicef [equiv]] 300 mg PO Q12H #14 cap Transmission Status: Pending to [facility] [address] Primary Care Physician: Ayleen Tam MD [Primary Care Provider] - Test Results: Test results from this visit will be discussed in further detail at your follow-up appointment, if applicable. Please Follow Up With: Ayleen Tam MD When: in 1 week Proposed Discharge Date: 11/11/20
--- NOTE | 2020-11-11 09:01 | DS.PCM_ITS ---
Discharge Date and Diagnosis - Problem List Patient Problems: Active and Suspected Problems (Last Reviewed 03/31/20 @ 09:37 by Sylvie Cole) Pancolitis (Acute) Hyponatremia (Acute) Hyperlipidemia (Acute) Date of Admission: 11/08/20 Date of Discharge: 11/11/20 - Primary Discharge Diagnosis Acute Problems: Active Problems (Last Reviewed 03/31/20 @ 09:37 by Sylvie Cole) Pancolitis (Acute) Hyponatremia (Acute) Hyperlipidemia (Acute) - Secondary Discharge Diagnosis Chronic Problems: Chronic Problems (Last Reviewed 03/31/20 @ 09:37 by Sylvie Cole) Osteoarthritis of right hip (Chronic) MRSA (methicillin resistant Staphylococcus aureus) (Chronic) Sleep apnea (Chronic) Coronary artery disease (Chronic) CAD (coronary artery disease) (Chronic) Chronic anemia (Chronic) Anxiety and depression (Chronic) Stented coronary artery (Chronic 07/16/19) 2.5 X 16 Promus Synergy EZEKIEL to Proximal Diag #1 per DJN @ [facility], 07/16/2019 Atherosclerosis of coronary artery of [place] heart without angina pectoris (Chronic) Hypertension (Chronic) Obstructive sleep apnea (Chronic) Per sleep study done 05/02/2016 Dr. Emmanuel Barnett [facility] Hypothyroidism (Chronic) GERD (gastroesophageal reflux disease) (Chronic) Allergic rhinitis (Chronic) Depression (Chronic) history of right axillary wound (Chronic) Closed fracture of left proximal tibia (Chronic) Osteoarthritis (Chronic) Osteoarthritis of left knee (Chronic) History of total left knee replacement (Chronic 09/03/16) Per Dr. Oc Chan [facility] Course and Treatment Imaging Results: Clinical Impression(s) from Imaging Studies Abdomen/Pelvis CT 11/08/20 16:54 IMPRESSION: 1. Pancolitis. Question C. difficile infection. 2. Limited visualization of the pelvic structures due to scatter artifact from bilateral hip replacements. 3. Status post cholecystectomy. 4. Degenerative changes of the lumbar spine Electronically Signed: Faizan Dodge DO at 17:13 EST Tel [phone], Service support , Operations: None, - - Left tibial IM nail insertion Summary of Care Provided: Patient is a 75-year-old female who presented with diarrhea with blood which started days prior to her admission. Elected to present to the emergency department after she started passing clots studies obtained on admission consistent with pancolitis admitted to regular nursing floor for further management 1. Pancolitis ?Suspected to be secondary to C. difficile colitis admitted to regular nursing floor placed under enteric precautions started on Flagyl and Rocephin while stool for C. difficile was sent to rule out C. difficile - 11/10/2020; patient seen still has loose bowel movement but she is no longer passing blood clots or any blood in the stool plan is to advance patient's diet as tolerated stool for C. difficile came back negative. 11/11/2020. Patient diarrhea has subsided decision was made to discharge patient home on cefdinir and Flagyl for 7 more days. She was instructed to follow-up with her PCP for subsequent care 2. Hypovolemic hyponatremia Secondary to dehydration from above managed with IV fluid with subsequent monitoring of electrolyte 3. Anemia -secondary to acute blood loss anemia from above monitoring H&H with plans to transfuse if hemoglobin falls below 7 4. Coronary artery disease ?Status post PCI in June 2019 Patient aspirin currently on hold we will continue with ARB as well as statin therapy 5. Renal insufficiency ?Resolved with rehydration 6. Hypertension - Blood pressure controlled, home medications continued with dose adjustment as needed 7. Dyslipidemia -Patient is on statin therapy, continued at home dose 8. Hypothyroidism - Patient is on levothyroxine home dose continued 9. GERD ?On H2 blockers 10. Depression with anxiety ?Patient is on duloxetine did continue 11. Obstructive sleep apnea ?Patient is on CPAP at night 12. DVT prophylaxis ?SCDs only Patient Problems: Active and Suspected Problems (Last Reviewed 03/31/20 @ 09:37 by Sylvie Cole) Pancolitis (Acute) Hyponatremia (Acute) Hyperlipidemia (Acute) Objective: GENERAL: cooperative HEENT: Atraumatic; EYES; Anicteric, Normal Conjunctiva NECK; supple, normal thyroid, RESPIRATORY: Diminished to auscultation CARDIOVASCULAR: Regular S1 S2, GI: soft, normoactive bowel sounds, : No Renal angle tenderness; EXTREMITIES: No edema, no clubbing, MUSCULOSKELETAL: no muscle waisting NEURO: Awake; no lateralizing signs. SKIN: No Rash PSYCH; Flat affect - Physical Exam Vitals/I&O's: Vital Signs Temp Pulse Resp BP Pulse Ox 97.8 F 69 18 159/88 H 98 11/11/20 08:55 11/11/20 08:55 11/11/20 08:55 11/11/20 08:55 11/11/20 08:55 Oxygen Delivery Method Room Air Weight: 89.4 kg Body Mass Index (BMI) 32.8 Intake and Output for Last 24 Hours 11/09/20 11/10/20 11/11/20 23:59 23:59 23:59 Intake Total 4239.17 / 4239.17 3410.42 / 3410.42 1100 / 1100 Balance 4239.17 / 4239.17 3410.42 / 3410.42 1100 / 1100 Microbiology Past 72 Hours 11/08/20 17:45 Stool Enteric Bacteriology - Final 11/08/20 17:45 Stool C. difficile DNA Amplification - Final 11/08/20 16:34 Mucosa - Nose SARS-CoV-2 Antigen (Rapid) - Final Current Medications Acetaminophen (Acetaminophen 325 Mg Tablet) 650 mg PO Q6H PRN PRN PRN Reason: Pain Score 1-10/Temp > 100.7 F Last Admin: 11/10/20 18:26 Dose: 650 mg Documented by: Al Hydroxide/Mg Hydroxide (Mag Hydrox/Al Hydrox/Simeth 30 Ml Udc) 30 ml PO Q6H PRN PRN PRN Reason: Gastric Burning Atorvastatin Calcium (Atorvastatin Calcium 20 Mg Tablet) 20 mg PO DAILY [facility] Last Admin: 11/10/20 10:33 Dose: 20 mg Documented by: Calamine/Phenol (Menthol/Lanolin/Calamine/Znox 113 Gm Tube) 1 applic TOPICAL 4X/DAY [facility]; Protocol Last Admin: 11/10/20 22:00 Dose: 1 applicatio Documented by: Duloxetine HCl (Duloxetine Hcl 60 Mg Capsule) 60 mg PO DAILY [facility] Last Admin: 11/10/20 10:34 Dose: 60 mg Documented by: Guaifenesin (Guaifenesin 10 Ml Udc (200mg/10ml)) 20 ml PO Q4H PRN PRN PRN Reason: COUGH Hydralazine HCl (Hydralazine 20 Mg/Ml Vial) 10 mg IV Q4H PRN PRN PRN Reason: SBP > 160 Sodium Chloride () 1,000 mls @ 125 mls/hr IV .Q8H [facility] Last Admin: 11/11/20 04:41 Dose: 125 mls/hr Documented by: Ceftriaxone Sodium 2 gm/ (Sodium Chloride) 50 mls @ 100 mls/hr IV Q24 [facility] Last Infusion: 11/10/20 11:02 Dose: Infused Documented by: Famotidine 20 mg/ Sodium (Chloride) 10 mls @ 300 mls/hr IV DAILY [facility] Last Infusion: 11/10/20 10:39 Dose: Infused Documented by: Sodium Chloride () 250 mls @ 15 mls/hr IV .[id number] PRN PRN Reason: Saline Flush Sodium Chloride () 250 mls @ 15 mls/hr IV .[id number] PRN PRN Reason: Additional IVPB Infusion Metronidazole (Flagyl) 500 mg in 100 mls @ 100 mls/hr IV Q8 [facility] Last Infusion: 11/11/20 06:57 Dose: Infused Documented by: Levothyroxine Sodium (Levothyroxine 75 Mcg Tablet) 75 mcg PO DAILY@0600 [facility] Last Admin: 11/11/20 05:57 Dose: 75 mcg Documented by: Losartan Potassium (Losartan Potassium 50 Mg Tablet) 50 mg PO QHS [facility] Last Admin: 11/10/20 22:01 Dose: 50 mg Documented by: Melatonin (Melatonin 3 Mg Tablet) 3 mg PO QHS PRN PRN PRN Reason: INSOMNIA Morphine Sulfate (Morphine 2 Mg/Ml Syringe) 2 mg IV Q3H PRN PRN PRN Reason: Pain Score 6-10 Nitroglycerin (Nitroglycerin (Inpatient Use) 0.4 Mg Tab.Subl) 0.4 mg SUBLINGUAL Q5M PRN PRN Reason: CARDIAC/CHEST PAIN Nutritional Formula (Lactose Free) (Ensure Clear 120 Ml Liquid) 120 ml PO 4X/DAY [facility] Last Admin: 11/10/20 21:59 Dose: Not Given Documented by: Ondansetron HCl (Ondansetron 4 Mg/2 Ml Vial) 4 mg IV Q8H PRN PRN PRN Reason: NAUSEA/VOMITING Oxycodone HCl (Oxycodone 5 Mg Tablet) 5 mg PO Q4H PRN PRN PRN Reason: Pain Score 4-5 Polysaccharide Iron Complex (Iron Polysaccharide Complex 150 Mg Capsule) 150 mg PO DAILY [facility] Last Admin: 11/10/20 10:35 Dose: 150 mg Documented by: Prochlorperazine Edisylate (Prochlorperazine 10 Mg/2 Ml Vial) 5 mg IV Q4H PRN PRN PRN Reason: Breakthrough nausea/vomiting Sodium Chloride (0.9% Saline Lock 10 Ml Syringe) 10 - 40 ml IV UD PRN PRN Reason: SALINE FLUSH Last Admin: 11/09/20 09:20 Dose: 10 ml Documented by: Throat Lozenges (Benzocaine/Menthol 1 Lozenge) 1 lozenge MUCOUS MEM Q2H PRN PRN PRN Reason: SORE THROAT Zolpidem Tartrate (Zolpidem Tartrate 5 Mg Tablet) 10 mg PO QHS PRN PRN Reason: INSOMNIA Last Admin: 11/10/20 22:01 Dose: 10 mg Documented by: Discharge Diet: No Restrictions Discharge Activity: Return to Normal Activity Home Medications: Medications to take at Discharge Levothyroxine [Synthroid] 75 mcg PO DAILY 12/23/13 Losartan Potassium [Cozaar] 50 mg PO DAILY 03/15/19 diphenhydramine HCl 25 mg capsule 25 mg PO QDAY PRN cap 07/12/19 zolpidem 10 mg tablet 10 mg PO QHS PRN tab 07/12/19 duloxetine 60 mg capsule,delayed release 60 mg PO DAILY cap 07/13/19 Rosuvastatin Calcium 10 mg PO DAILY 07/19/20 Acetaminophen [Tylenol] 1,000 mg PO Q8H PRN 08/15/20 Aspirin [Aspirin, Baby] 81 mg PO BIDCM 08/15/20 Calcium Carb/Vitamin D [Os-Santiago 500MG + D] 1 tab PO BIDCM tab 08/30/20 Esomeprazole Mag Trihydrate [Nexium] 40 mg PO 0600,1700 cap 08/30/20 Clopidogrel Bisulfate [Clopidogrel] 75 mg PO DAILY 11/08/20 Ferrous Sulfate [High Potency Iron] 27 mg PO DAILY 11/08/20 Meloxicam [Mobic] 15 mg PO DAILY PRN PRN 11/08/20 Multivit-Min/Iron/Folic/Lutein [Centrum Silver Women Tablet] 1 tab PO DAILY 11/08/20 Cefdinir [Omnicef [equiv]] 300 mg PO Q12H #14 cap 11/11/20 Metronidazole 500 mg PO TID #21 tab 11/11/20 Following Prescriptions Were Given to Patient: Metronidazole 500 mg PO TID #21 tab Transmission Status: Pending to [id number] [facility] Cefdinir [Omnicef [equiv]] 300 mg PO Q12H #14 cap Transmission Status: Pending to [id number] Primary Care Physician: Ayleen Tam MD [Primary Care Provider] - Please Follow Up With: Ayleen Tam MD When: in 1 week Disposition: Home Minutes spent on discharge:: 35 Patient Condition:: Stable Medical Necessity - Tobacco Use Smoking Status: Former smoker - Patient quit cigarette tobacco usage in 1982, started when she was 18 years old with 1 pack/day cigarette tobacco usage until she quit. Tobacco Use: Non-smoker Meaningful Use Info Meaningful Use Diagnoses (Choose all that apply): None applicable Inpatient E&M: 75669 Disch Hosp
[2020-11-11] MEDS: Menthol/Lanolin/Calamine/Znox 113 GM Tube 1 APPLIC TOPICAL (09:11)
[2020-11-11] MEDS: DULoxetine Hcl 60 MG Capsule PO (09:11)
[2020-11-11] MEDS: Iron Polysaccharide Complex 150 MG CAPSULE PO (09:12)
[2020-11-11] MEDS: Atorvastatin Calcium 20 MG Tablet PO (09:12)
[2020-11-11] MEDS: Famotidine 200 MG/20 ML MDV 20 MG in 0.9% Normal Saline (Pres. free 8 ML 300 MG IV (10:19)
[2020-11-11] MEDS: 0.9% Saline Lock 10 ML Syringe IV (10:20)
--- NOTE | 2020-11-13 15:37 | CASEMGMT ---
MATI BURCIAGA Discharge Follow-up Phone Call: DARION: Jefry Strata: 3 Call Date: 11/13/20 Discharge Date: 11/11/20 Time of Call: [id number] Duration: 3 min Admitting Diagnosis: pancolitis MATI BURCIAGA completed follow-up phone call after recent hospitalization. Patient states she is doing better. Patient had no questions or concerns regarding discharge instructions. Patient was able to fill prescriptions without any issues. Patient has follow-up appts scheduled for this week. Patient had no further questions or concerns at this time.
== END 2020-11-11 14:10 | disposition home or self-care (01) | DRG 386 ==
LOC: ED 15:58 → MS3 18:13
PROVIDERS: Admitting Provider Family Medicine; Emergency Provider Emergency Medicine; PCP Internal Medicine; Visit Provider Internal Medicine
DX: K51.00 Ulcerative (chronic) pancolitis without complications (principal); E87.1 Hypo-osmolality and hyponatremia; D62 Acute posthemorrhagic anemia; E78.5 Hyperlipidemia, unspecified; D50.9 Iron deficiency anemia, unspecified; E03.9 Hypothyroidism, unspecified; E86.0 Dehydration; E86.1 Hypovolemia; F41.8 Other specified anxiety disorders; N28.9 Disorder of kidney and ureter, unspecified; G47.33 Obstructive sleep apnea (adult) (pediatric); I10 Essential (primary) hypertension; I25.10 Atherosclerotic heart disease of native coronary artery without angina pectoris; K21.9 Gastro-esophageal reflux disease without esophagitis; M16.11 Unilateral primary osteoarthritis, right hip; M17.12 Unilateral primary osteoarthritis, left knee; Z87.891 Personal history of nicotine dependence; Z95.5 Presence of coronary angioplasty implant and graft; Z86.14 Personal history of Methicillin resistant Staphylococcus aureus infection; Z79.82 Long term (current) use of aspirin; Z79.899 Other long term (current) drug therapy; Z79.02 Long term (current) use of antithrombotics/antiplatelets
CPT/HCPCS: 36415; 74177; 80053; 83605; 83735; 85025; 86850; 86900; 86901; 87177; 87209; 87426; 87493; 87506; 97162; 97166; 99251; 99284; J7030; Q9967; A4216; G0463; J0696; J3490

== ENCOUNTER 2025-05-08 13:51 | Emergency (ER) | payer MEDICARE, MEDICAID, SELFPAY ==
[2019-07-16 11:02] VITALS: BMI 34.8
[2025-05-08 13:52] VITALS: BP 123/101; PULSE 92; RESP 18; TEMP 36.9; O2SAT 95
[2025-05-08 13:58] VITALS: BP 146/88; PULSE 90; RESP 18; TEMP 36.9; O2SAT 96; BMI 35.7
--- NOTE | 2025-05-08 14:11 | EDS_ITS ---
HPI History of Present Illness HPI Narrative: Patient presents after a fall that occurred today. Patient states she lost her balance. Patient states she has a history of vertigo and balance problems. Patient states she fell onto her right shoulder. Patient describes it as aching and worse with movement. Patient is nothing makes it better. Patient denies any head injury or loss of consciousness. Patient denies any paresthesias or weakness. Patient denies any other injuries. Chief Complaint: Fall Informant: patient Onset/Context/Timing Onset: Today Context: Sudden Onset Timing: Continuous Quality of Pain: Aching Location: Right shoulder and humerus Worsened by: Movement Relieved by: Nothing Associated Symptoms Associated Symptoms: Negative for Parasthesia, Weakness or Loss of Funtion [facility] Medical History (Updated 05/08/25 @ 14:[address] Kev Nelson, DO) Atherosclerosis of coronary artery of [place] heart without angina pectoris Obstructive sleep apnea Abnormal nuclear stress test Home Medications ?Medication ?Instructions ?Recorded ?Last Taken ?Type levothyroxine 75 mcg tablet 75 mcg PO DAILY thyroid 11/08/20 History losartan 50 mg tablet 50 mg PO DAILY bp 03/15/19 0 11/07/20 History diphenhydramine HCl 25 mg capsule 25 mg PO QDAY PRN al lergies 07/12/19 11/07/20 History (Benadryl) zolpidem 10 mg tablet (Ambien) 10 mg PO QHS PRN Insomn ia 07/12/19 11/07/20 History duloxetine 60 mg capsule,delayed 60 mg PO DAILY depres jovani 07/13/19 11/08/20 History release acetaminophen 500 mg tablet 1,000 mg PO Q8H PRN Pain 1 -10 Or 08/15/20 11/07/20 History Fever aspirin 81 mg chewable tablet 81 mg PO BIDCM DVT Proph ylaxis 08/15/20 11/08/20 History calcium 500 mg (as 1 tab PO BIDCM 08/30/2010/27 Rx carbonate)-vitamin D3 5 mcg (200 unit) tablet esomeprazole magnesium 40 mg 40 mg PO 0600,1700 11/08/20 Rx capsule,delayed release ferrous sulfate 27 mg iron tablet 27 mg PO DAILY SUPPL EMENT 11/08/20 11/08/20 History meloxicam 15 mg tablet 15 mg PO DAILY PRN PRN Pain 1-10 11/08/20 11/08/20 His tory
--- NOTE | 2025-05-08 14:11 | EX.ED.UPPERE ---
HPI History of Present Illness HPI Narrative: Patient presents after a fall that occurred today. Patient states she lost her balance. Patient states she has a history of vertigo and balance problems. Patient states she fell onto her right shoulder. Patient describes it as aching and worse with movement. Patient is nothing makes it better. Patient denies any head injury or loss of consciousness. Patient denies any paresthesias or weakness. Patient denies any other injuries. Chief Complaint: Fall Informant: patient Onset/Context/Timing Onset: Today Context: Sudden Onset Timing: Continuous Quality of Pain: Aching Location: Right shoulder and humerus Worsened by: Movement Relieved by: Nothing Associated Symptoms Associated Symptoms: Negative for Parasthesia, Weakness or Loss of Funtion [facility] Medical History (Updated 05/08/25 @ 14:[address] Kev Nelson, ) Atherosclerosis of coronary artery of [place] heart without angina pectoris Obstructive sleep apnea Abnormal nuclear stress test Home Medications ?Medication ?Instructions ?Recorded ?Last Taken ?Type levothyroxine 75 mcg tablet 75 mcg PO DAILY thyroid 12/23/13 11/08/20 History losartan 50 mg tablet 50 mg PO DAILY bp 03/15/19 11/07/20 History diphenhydramine HCl 25 mg capsule 25 mg PO QDAY PRN allergies 07/12/19 11/07/20 History (Benadryl) zolpidem 10 mg tablet (Ambien) 10 mg PO QHS PRN Insomnia 07/12/19 11/07/20 History duloxetine 60 mg capsule,delayed 60 mg PO DAILY depression 07/13/19 11/08/20 History release acetaminophen 500 mg tablet 1,000 mg PO Q8H PRN Pain 1-10 Or 08/15/20 11/07/20 History Fever aspirin 81 mg chewable tablet 81 mg PO BIDCM DVT Prophylaxis 08/15/20 11/08/20 History calcium 500 mg (as 1 tab PO BIDCM 08/30/20 11/08/20 Rx carbonate)-vitamin D3 5 mcg (200 unit) tablet esomeprazole magnesium 40 mg 40 mg PO 0600,1700 08/30/20 11/08/20 Rx capsule,delayed release ferrous sulfate 27 mg iron tablet 27 mg PO DAILY SUPPLEMENT 11/08/20 11/08/20 History meloxicam 15 mg tablet 15 mg PO DAILY PRN PRN Pain 1-10 11/08/20 11/08/20 History Or Fever [id number] 8 mg-folic 400 1 tab PO DAILY SUPPLEMENT 11/08/20 11/08/20 History mcg-K 50 mcg-lutein 300 mcg tablet cefdinir 300 mg capsule 300 mg PO Q12H #14 caps 11/11/20 Unknown Rx metronidazole 500 mg tablet 500 mg PO TID #21 tabs 11/11/20 Unknown Rx clopidogrel 75 mg tablet 75 mg PO DAILY BLOOD THINNER #30 11/24/20 Unknown Rx tabs rosuvastatin 10 mg tablet 10 mg PO DAILY cholesterol #90 tabs 05/06/24 Unknown Rx hydrocodone-acetaminophen 5-325mg 1 tab PO Q6H PRN PRN Pain 3 days 05/08/25 Unknown Rx 5mg-325mg #10 TABLETS Allergy/AdvReac Type Severity Reaction Status Date / Time cat dander Allergy Intermediate nasal Verified 11/08/20 15:36 congestion ciprofloxacin (From Cipro) Allergy Hives Verified 11/08/20 15:36 ciprofloxacin HCl (From Allergy Hives Verified 11/08/20 15:36 Cipro) clindamycin Allergy Rash Verified 11/08/20 15:36 doxycycline Allergy Other Verified 11/08/20 15:36 latex Allergy Hives Verified 11/08/20 15:36 nitrofurantoin (From Allergy Other Verified 11/08/20 15:36 Macrobid) Penicillins Allergy Shortness Verified 11/08/20 15:36 of breath vortioxetine (From AdvReac Intermediate GI upset Verified 11/08/20 15:36 Brintellix) methotrexate AdvReac Unknown unknown Verified 11/08/20 15:36 trazodone AdvReac Other Verified 11/08/20 15:36 Family History Father , Hodgkin's age 29 Hodgkin disease Mother Lung cancer Surgical History (Updated 05/08/25 @ 14:[address] 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, bilateral Stented coronary artery (07/16/19) Social History Smoking Status: Former smoker quit date: 10/27/82 pack-years: 20 ROS ROS ED Constitutional Constitutional ED: Denies chills or fever(s) Eyes Eyes: Denies blurry vision or change in vision ENT ENT ED: Denies rhinorrhea or sore throat Cardiovascular Cardiovascular: Denies chest pain or palpitations Respiratory/Chest Respiratory/Chest: Denies cough or dyspnea Gastrointestinal Gastrointestinal: Denies nausea or vomiting Genitourinary Genitourinary ED: Denies dysuria or hematuria Musculoskeletal Musculoskeletal: Denies back pain or neck pain Integumentary Denies abscess or rash Neurologic Neurologic: Denies headache(s) or weakness Allergic/Immunologic Allergic/Immunologic ED: Denies mouth swelling or urticaria EXAM Physical Exam Const Vital Signs: 05/08/25 13:52 05/08/25 13:54 05/08/25 13:58 Temperature 98.4 F 98.5 F Temperature Source Oral Oral Pulse Rate 92 90 Respiratory Rate 18 18 Respiratory Effort Normal Respiratory Depth Normal Respiratory Pattern Normal Blood Pressure 123/101 H 146/88 H Blood Pressure Mean 108 107 Pulse Ox 95 96 Oxygen Delivery Method Room Air Room Air Room Air Positive well nourished and well developed Constitutional Narrative: BMI is 35.8. General Appearance ED: well developed and NAD HEENT Reports moist mucous membranes Neck full ROM and supple Resp normal respiratory effort and clear to auscultation bilaterally Cardio regular rate and regular rhythm GI non-tender and non-distended Palpation: soft Extremity Extremity Narrative: There is tenderness to palpation over the right shoulder and proximal humerus. There is some edema noted. There is no deformity noted. Range of motion was limited in all motions of the right shoulder secondary to pain. There is no tenderness over the distal clavicle. Radial pulses are equal bilaterally. Sensation was intact to light touch in the radial, median, and ulnar areas. Strength is 5/5 in the radial, median, and ulnar areas. Neuro oriented x3, CN's II-XII intact bilaterally, moves all extremities, no focal motor deficits and no sensory deficits noted Sensorium / Orientation: alert Motor Exam: strength 5/5 throughout Psych mental status grossly normal MDM MDM MDM Narrative Medical decision making narrative: Differential diagnosis includes fracture, sprain, and contusion. X-rays of the right shoulder will be obtained to assess for fracture and dislocation. Radiography Diagnostic Testing: X-rays of the right shoulder were obtained. There are 4 views. On my independent interpretation, there is a proximal humerus fracture. There is minimal displacement. There is some posterior angulation of the proximal fragment. Treatment and Re-Evaluation Narrative: Patient was advised of her findings. Patient was given a sling and swath. Patient was given a prescription for short course of [place]. Patient was instructed to use ice to the area. Patient was instructed to follow-up with her primary care physician in 5 to 7 days. Patient was instructed to return if worse in any way. Patient understood and was agreeable with the plan. All questions were answered. Upon discharge, patient told nurses that she did not feel she could get into her apartment with her sling and swath. Social work was consulted for possible home health or other resources for the patient. Discharge Plan Triage Chief Complaint: Fall ED Provider: Kev Nelson Dx/Rx/DC Orders Clinical Impression: Fracture of proximal humerus, Fall Instructions: ED Fracture, Shoulder Prescriptions: New hydrocodone-acetaminophen 5-325 mg tablet 1 tab PO Q6H PRN PRN (Reason: Pain) 3 Days Qty: 10 0RF No Action diphenhydramine HCl [Benadryl] 25 mg capsule 25 mg PO QDAY PRN (Reason: allergies) zolpidem [Ambien] 10 mg tablet 10 mg PO QHS PRN (Reason: Insomnia) levothyroxine 75 MCG tablet 75 mcg PO DAILY Patient Comments: THYROID SUPPLEMENT losartan 50 MG tablet 50 mg PO DAILY duloxetine 60 mg capsule,delayed release(DR/EC) 60 mg PO DAILY acetaminophen 500 MG tablet 1,000 mg PO Q8H PRN (Reason: Pain 1-10 Or Fever) aspirin 81 MG tablet,chewable 81 mg PO BIDCM Rx Instructions: Take 81 mg aspirin twice daily for 4 weeks postoperatively for DVT prophylaxis esomeprazole magnesium 40 MG capsule 40 mg PO 0600,1700 0RF calcium carbonate-vitamin D3 1 TABLET tablet 1 tab PO BIDCM 0RF meloxicam 15 MG tablet 15 mg PO DAILY PRN PRN (Reason: Pain 1-10 Or Fever) ferrous sulfate 27 MG tablet 27 mg PO DAILY nmaqutti-[id number]-FA-vit K-lut 1 EACH tablet 1 tab PO DAILY metronidazole 500 MG tablet 500 mg PO TID Qty: 21 0RF cefdinir 300 MG capsule 300 mg PO Q12H Qty: 14 0RF clopidogrel 75 mg tablet 75 mg PO DAILY Qty: 30 11RF rosuvastatin 10 mg tablet 10 mg PO DAILY Qty: 90 3RF Primary Care Provider: Ayleen Tam Referrals: Ayleen Tam MD [Primary Care Provider] - 5-7 Days Balta Rosenthal DO [Med Staff - Active Staff] - 3-5 Days Print Language: Finnish Disposition Disposition: Home, Self Care
--- NOTE | 2025-05-08 14:30 | RAD_ITS ---
PROCEDURE: SHOULDER MIN 2 VIEWS 05/08/2025 REASON FOR EXAM: INJURY/PAIN TECHNIQUE: SHOULDER MIN 2 VIEWS COMPARISON: None FINDINGS: See below. RAD/Shoulder min 2 Views IMPRESSION: There is a slightly comminuted and mildly impacted fracture through the right h umeral neck, which involves the greater tuberosity.Recommend Orthopedic Surgery consultation. Degenerative changes of the acromioclavicular and glenohumeral joints. Calcifi cation adjacent to the humeral head may represent sequela of calcific tendinopathy. Coarsened interstitial markings throughout the visualized lungs. Aortic athero sclerosis. Degenerative changes of the spine. Reading Location: [facility]
--- OUTSIDE RECORDS SUMMARY | 2025-05-08 14:44 | XMS RPT_ITS | CCD ---
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 69157-8, 3051-0 #### [facility] CLIA [id number] [address] [place] [address] [place] ALT [Catalytic activity/Vol] 13 U/L Normal 7-38 [facility] Comment on above: Order Comment: Speci men Type: BLOOD SPECIMEN Ordering Facility: [facility] Address: [address] [place] [address] Performed By: #### L IPNF, 47031-4, 32252-0, 3051-0 #### [facility] CLIA [id number] [address] [place] [address] [place] Anion gap [Moles/Vol] 11 mmol/L Normal 8-15 [facility] Comment on above: Order Comment: Speci men Type: BLOOD SPECIMEN Ordering Facility: [facility] Address: [address] [place] [address] Performed By: #### L IPNF, 27622-9, 63491-4, 3051-0 #### [facility] CLIA [id number] [address] [place] [address] [place] AST [Catalytic activity/Vol] 20 U/L Normal 13-35 [facility] Comment on above: Order Comment: Speci men Type: BLOOD SPECIMEN Ordering Facility: [facility] Address: [address] [place] [address] Performed By: #### L IPNF, 09347-0, 77172-6, 3051-0 #### [facility] CLIA [id number] [address] [place] [address] [place] Bilirubin [Mass/Vol] 0.2 mg/dL Normal 0.2-1.3 [facility] Comment on above: Order Comment: Speci men Type: BLOOD SPECIMEN Ordering Facility: [facility] Address: [address] [place] [address] Performed By: #### L IPNF, 96265-4, 30034-4, 3051-0 #### [facility] CLIA [id number] [address] [place] [address] [place] Calcium [Mass/Vol] 9.6 mg/dL Normal 8.5-10.2 [facility] Comment on above: Order Comment: Speci men Type: BLOOD SPECIMEN Ordering Facility: [facility] Address: [address] [place] [address] Performed By: #### L IPNF, 81100-5, 00493-8, 3051-0 #### [facility] CLIA [id number] [address] [place] [address] [place] Chloride [Moles/Vol] 100 mmol/L Normal 98-107 [facility] Comment on above: Order Comment: Speci men Type: BLOOD SPECIMEN Ordering Facility: [facility] Address: [address] [place] [address] Performed By: #### L IPNF, 59305-0, 50094-5, 3051-0 #### [facility] CLIA [id number] [address] [place] [address] [place] CO2 [Moles/Vol] 22 mmol/L Normal 22-30 [facility] Comment on above: Order Comment: Speci men Type: BLOOD SPECIMEN Ordering Facility: [facility] Address: [address] [place] [address] Performed By: #### L IPNF, 70238-5, 76101-3, 3051-0 #### [facility] CLIA [id number] [address] [place] [address] [place] Creatinine [Mass/Vol] 0.71 mg/dL Normal 0.58-0.96 [facility] Comment on above: Order Comment: Speci men Type: BLOOD SPECIMEN Ordering Facility: [facility] Address: [address] [place] [address] Performed By: #### L IPNF, 23666-1, 15719-2, 3051-0 #### [facility] CLIA [id number] [address] [place] [address] [place] Creatinine and Glomerular filtration rate.predicted panel (S/P/Bld) 86 mL/min/1.73m??? Normal >=60 [facility] Comment on above: Order Comment: Sandy jackson Type: BLOOD SPECIMEN Ordering Facility: [facility] Address: [address] [place] [address] Result Comment: Renee mated Glomerular Filtration Rate (eGFR) is calculated using the 2020 CKD-EPI creatinine equation. This equation utilizes serum creatinine, sex, and age as parameters. The creatinine assay has traceable calibration to isotope dilution-mass spectrometry. Refer to KDIGO guidelines for clinical interpretation. In patients with unstable renal function, e.g. those with acute kidney injury, the eGFR may not accurately reflect actual GFR. Performed By: #### L BINH, 61371-1, 98170-8, 3050-0 #### [facility] CLIA [id number] [address] [place] [address] [place] Glucose [Mass/Vol] 99 mg/dL Normal 74-99 [facility] Comment on above: Order Comment: Sandy jackson Type: BLOOD SPECIMEN Ordering Facility: [facility] Address: [address] [place] [address] Result Comment: The [place] Diabetes Association (ADA) provides guidance for cutoff values for fasting glucose and random glucose. The ADA defines fasting as no caloric intake for at least 8 hours. Fasting plasma glucose results between 100 to 125 mg/dL indicate increased risk for diabetes (prediabetes). Fasting plasma glucose results greater than or equal to 126 mg/dL meet the criteria for diagnosis of diabetes. In the absence of unequivocal hyperglycemia, results should be confirmed by repeat testing. In a patient with classic symptoms of hyperglycemia or hyperglycemic crisis, random plasma glucose results greater than or equal to 200 mg/dL meet the criteria for diagnosis of diabetes. Reference: Standards of Medical Care in Diabetes 2016, [place] [employer]. Diabetes Care. 2016.39(Suppl 1). Performed By: #### L BINH, 05177-6, 22405-9, 3051-0 #### [facility] CLIA [id number] [address] [place] [address] [place] Potassium [Moles/Vol] 5.1 mmol/L Normal 3.7-5.1 [facility] Comment on above: Order Comment: Speci men Type: BLOOD SPECIMEN Ordering Facility: [facility] Address: [address] [place] [address] Performed By: #### L IPNF, 11968-1, 36382-6, 3051-0 #### [facility] CLIA [id number] [address] [place], [place] [address] [place] Protein [Mass/Vol] 7.5 g/dL Normal 6.3-8.0 [facility] Comment on above: Order Comment: Speci men Type: BLOOD SPECIMEN Ordering Facility: [facility] Address: [address] [place] [address] Performed By: #### L IPNF, 60152-8, 93012-4, 3051-0 #### [facility] CLIA [id number] [address] [place] [address] [place] Sodium [Moles/Vol] 133 mmol/L Low 136-144 [facility] Comment on above: Order Comment: Speci men Type: BLOOD SPECIMEN Ordering Facility: [facility] Address: [address] [place] [address] Performed By: #### L IPNF, 18474-1, 14217-4, 3051-0 #### [facility] CLIA [id number] [address] [place] [address] [place] Urea nitrogen [Mass/Vol] 32 mg/dL High 7-21 [facility] Comment on above: Order Comment: Speci men Type: BLOOD SPECIMEN Ordering Facility: [facility] Address: [address] [place], [place] [address] Performed By: #### L IPNF, 31120-5, 75018-4, 3051-0 #### [facility] CLIA [id number] [address] [place], [place] [address] [place] Ferritin SerPl-mCncon 2024 Ferritin [Mass/Vol] 85.9 ng/mL Normal 14.7-205.1 [facility] Comment on above: Order Comment: Speci men Type: BLOOD SPECIMEN Ordering Facility: [facility] Address: [address] [place] [address] Performed By: #### 2 276-4, 3024-7, 3016-3 #### [facility] CLIA [id number] [address] [place] [address] [place] Iron and Iron binding capaci ty panelon 03-14-2025 Iron [Mass/Vol] 44 ug/dL Normal 41-186 [facility] Comment on above: Order Comment: Speci men Type: BLOOD SPECIMEN Ordering Facility: [facility] Address: [address] [place] [address] Performed By: #### L IPNF, 34778-0, 20285-9, 3051-0 #### [facility] CLIA [id number] [address] [place] [address] [place] Iron binding capacity [Mass/Vol] 331 ug/dL Normal 232-386 [facility] Comment on above: Order Comment: Speci men Type: BLOOD SPECIMEN Ordering Facility: [facility] Address: [address] [place] [address] Performed By: #### L IPNF, 82869-3, 17970-7, 3051-0 #### [facility] CLIA [id number] [address] [place], [place] [address] [place] Iron/TIBC [Molar ratio] 13.3 % Low 15.0-57.0 [facility] Comment on above: Order Comment: Speci men Type: BLOOD SPECIMEN Ordering Facility: [facility] Address: [address] [place] [address] Performed By: #### L IPNF, 49268-6, 98319-0, 3051-0 #### [facility] CLIA [id number] [address] [place] [address] [place] [facility] [place] LIPID PANEL, NONFASTINGon Cholesterol [Mass/Vol] 178 mg/dL Normal <200 [facility] Comment on above: Order Comment: Sandy manuel Type: BLOOD SPECIMEN Ordering Facility: [facility] Address: [address] [place] [address] Result Comment: <200 mg/dL, Desirable 200-239 mg/dL, Borderline high >239 mg/dL, High Performed By: #### L IPNF, 63878-9, 54464-4, 305-0 #### [facility] CLIA [id number] [address] [place] [address] [place] HDL CHOLESTEROL, NF 69 mg/dL Normal >39 [facility] Comment on above: Order Comment: Sandy jackson Type: BLOOD SPECIMEN Ordering Facility: [facility] Address: [address] [place] [address] Result Comment: 40-5 9 mg/dL, Acceptable >59 mg/dL, High: Negative risk factor for coronary heart disease <40 mg/dL, Low: Positive risk factor for coronary heart disease Performed By: #### L IPNF, 32918-2, 96467-5, 305-0 #### [facility] CLIA [id number] [address] [place] [address] [place] LDL CHOLESTEROL CALCULATED, NF 92 mg/dL Normal <100 [facility] Comment on above: Order Comment: Margojer jackson Type: BLOOD SPECIMEN Ordering Facility: [facility] Address: [address] [place] [address] Result Comment: <100 mg/dL, Optimal 100-129 mg/dL, Near optimal/above optimal 130-159 mg/dL, Borderline high 160-189 mg/dL, High >189 mg/dL, Very high Secondary prevention optimal LDL Cholesterol levels are recommended to be <70 mg/dL LDL cholesterol is calculated using the Cat-NIH equation. Performed By: #### L IPNF, 99650-6, 82665-5, 3051-0 #### [facility] CLIA [id number] [address] [place] [address] [place] LDL/HDL RATIO, NF 1.33 mg/dL Normal <2.54 [facility] Comment on above: Order Comment: Sandy jackson Type: BLOOD SPECIMEN Ordering Facility: [facility] Address: [address] [place] [address] Result Comment: Refe bintace: 1. National Cholesterol Education Program ATP III Guideline At-A-Glance Quick Desk Reference: National Heart, Lung, and Blood [place]. National Institutes of Health. 2001: NIH Publication No. 01-3305. 2. An International Atherosclerosis Society position paper: global recommendations for the management of dyslipidemia: executive summary, Atherosclerosis. 2014: 232(2):410-413. Performed By: #### L IPNF, 58255-6, 45640-1, 3051-0 #### [facility] CLIA [id number] [address] [place] [address] [place] NON HDL CHOL, NF 109 mg/dL Normal <130 [facility] Comment on above: Order Comment: Sandy jackson Type: BLOOD SPECIMEN Ordering Facility: [facility] Address: [address] [place] [address] Result Comment: <130 mg/dL, Optimal 130-159 mg/dL, Near optimal/above optimal 160-189 mg/dL, Borderline high 190-219 mg/dL, High >219 mg/dL, Very high Secondary prevention optimal non HDL Cholesterol levels are recommended to be <100 mg/dL Performed By: #### L IPNF, 88973-1, 71229-0, 3051-0 #### [facility] CLIA [id number] [address] [place] [address] [place] OF [facility] T CHOL/HDL RATIO NF 2.58 mg/dL Normal <5.10 [facility] Comment on above: Order Comment: Sandy jackson Type: BLOOD SPECIMEN Ordering Facility: [facility] Address: [address] [place] [address] Performed By: #### L IPNF, 11762-2, 24861-6, 305-0 #### [facility] CLIA [id number] [address] [place] [address] [place] TRIGLYCERIDES, NF 96 mg/dL Normal <150 [facility] Comment on above: Order Comment: Speci men Type: BLOOD SPECIMEN Ordering Facility: [facility] Address: [address] [place] [address] Result Comment: <150 mg/dL, Normal 150-199 mg/dL, Borderline high 200-499 mg/dL, High >499 mg/dL, Very high Performed By: #### L IPNF, 86586-5, 24556-9, 305-0 #### [facility] CLIA [id number] [address] [place] [address] [place] VLDL CHOLESTEROL, NF 15 mg/dL Normal <30 [facility] Comment on above: Order Comment: Speci men Type: BLOOD SPECIMEN Ordering Facility: [facility] Address: [address] [place] [address] Performed By: #### L IPNF, 11816-9, 00950-7, 305-0 #### [facility] CLIA [id number] [address] [place] [address] [place] T3Free SerPl-mCncon 20 25 Free T3 [Mass/Vol] 2.4 pg/mL Normal 2.3-4.1 [facility] Comment on above: Order Comment: Speci men Type: BLOOD SPECIMENOrdering Facility: [facility] Address: [address] [place] [address] Performed By: #### L IPNF, , 07858-0, 305-0 ####[facility] [id number] [place] [address] [place] T4 Free SerPl-mCncon 025 Free T4 [Mass/Vol] 1.0 ng/dL Normal 0.9-1.7 [facility] Comment on above: Order Comment: Specjer jackson Type: BLOOD SPECIMEN Ordering Facility: [facility] Address: [address] [place] [address] Performed By: #### 2 276-4, 3024-7, 3016-3 #### [facility] CLIA [id number] [address] [place] [address] [place] TSH SerPl-aCncon 03-14-2025 TSH Qn 2.490 m[IU]/L Normal 0.270-4.200 [facility] Comment on above: Order Comment: Sandy jackson Type: BLOOD SPECIMEN Ordering Facility: [facility] Address: [address] [place] [address] Performed By: #### 2 276-4, 3024-7, 3016-3 #### [facility] CLIA [id number] [address] [place] [address] OF [facility] CNOVon 07-13-2024 CNOV Office Visit (INTMWS) KATH ARRIAGA ([id number]) 1945 [facility] Date Time Provider Department 07/13/24 2:00 PM OLGA GAITAN INTMWS During your visit today, we recorded the following information about you: Pulse Blood pressure Weight 91/minute 144/80 91.2 kg Olga Gaitan APRN.[employer]UDIES PROFESSOR 07/13/2024 2:45 PM Signed SUBJECTIVE Kath Arriaga is a 78 year old female here today for a check up on her medical problems. Chief Complaint Patient presents with: F/U 6 months Immunizations: Flu vaccination HPI Kath Arriaga is a 78 year old female. She is an established patient of Deb Tam MD. Here today for a 6 month follow up. Overall doing okay. Notes issues with arthritis aches and pains but managing. Sleep is okay. Stopped her Ambien. Sleep is okay without this. Not using her CPAP. Hasn't for years. Appetite is good. No bowel troubles. Doing okay taking her medicine. History of HTN, hypothyroid, vitamin d def, HLD, iron def. Would like labs next visit. COVID and Flu vaccines today. Her medications were reviewed today and her list is now up to date. Medications Current Outpatient Medications Medication Sig esomeprazole (NEXIUM) 40 mg capsule Take 1 capsule by mouth two times a day before meals. losartan (COZAAR) 50 mg tablet Take 1 tablet by mouth once daily. meloxicam (MOBIC) 15 mg tablet Take 1 tablet by mouth once daily as needed. levothyroxine (SYNTHROID) 75 mcg tablet Take 1 tablet by mouth once daily. DULoxetine (CYMBALTA) 60 mg capsule Take 1 capsule by mouth once daily. nystatin (MYCOSTATIN) powder Apply 1 application to affected area four times daily. ketoconazole (NIZORAL) 2 % shampoo Apply 1 application to affected area once daily as needed. For scalp. rosuvastatin (CRESTOR) 10 mg tablet Take 10 mg by mouth once daily. Calcium Citrate-Vitamin D3 250 mg calcium- 200 unit tab Take 1 tablet by mouth once daily. Ferrous Gluconate (FERGON) 324 mg (38 mg iron) tablet Actually taking 41 mg tablet therapeutic multivitamin w/ iron (THERAGRAN-M) 27-0.4 mg tablet Take 1 tablet by mouth once daily. ACETAMINOPHEN (TYLENOL 8 HOUR ORAL) Take 500 mg by mouth once daily as needed. diphenhydrAMINE (BENADRYL) 25 mg capsule Take 25 mg by mouth once daily as needed. ubidecarenone Q-10 (CO Q-10) 10 mg cap Take by mouth two times a day. ergocalciferol, vitamin D2, (VITAMIN D2 ORAL) Take 1 capsule by mouth once daily. loperamide HCl (IMODIUM ORAL) Take 1 tablet by mouth as needed. Walker misc Walker with wheels and a seat Dx: R26.2, Z91.81 diphenoxylate-atropi ne (LOMOTIL) 2.5-0.025 mg per tablet Take 1 tablet by mouth four times daily as needed for Diarrhea for up to 5 days. Underpads 30 X 30 pads Change daily and as needed. N39.46, N95.2 Diaper,Brief, Adult,Disposable (WINGS CLASSIC ADULT BRIEFS X-L) Pull ups with liner pads--change as needed at least 2 daily. N39.46, N95.2 OTC NUTRITIONAL SUPPLEMENT Boost Max, 2 cartons per day Miscellaneous Medical Supply misc Boost Max 1 can twice daily COMPOUNDED PRESCRIPTION BLOOD PRESSURE CUFF FOR HOME USE. DX: Hypertension I10 iron polysaccharide complex (FERREX-150) 150 mg iron capsule Take 1 capsule by mouth once daily. ASPIRIN/ACETAMINOPHE N/CAFFEINE (EXCEDRIN EXTRA STRENGTH ORAL) Take by mouth. No current facility-administere d medications for this visit. ALLERGIES Allergen Reactions Cat Dander Other: See Comments Clindamycin Rash (no SOB). Rash all over. Not sure if from Bactrim or Clindamycin for sure but only 2 days of bactrim before had to go to ER Latex Rash, Hives Brintellix [Vortiox* GI Upset felt like raw inside Cats Other: See Comments Mildly positive skin test on 09/02/12 Dr. Burns's office Ciprofloxacin Other: See Comments, Hives made arthritis flare Doxycycline Other: See Comments Macrobid [Nitrofura* Unknown Methotrexate Other: See Comments Fatigue after took that (Dr. 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 Normal [facility] CBC W Auto Differential pane l (Bld)on 05-21-2022 Abs Immature Gran 0.03 k/uL <0.10 k/uL [facility] Basophils (Bld) [#/Vol] 0.04 10*3/uL <0.11 k/uL [facility] Basophils/100 WBC (Bld) 0.6 % [facility] Differential cell count method Nom (Bld) Auto [facility] Eosinophils (Bld) [#/Vol] 0.13 10*3/uL <0.46 k/uL [facility] Eosinophils/100 WBC (Bld) 1.9 % [facility] Erythrocyte distribution width (RBC) [Ratio] 13.5 % 11.5 - 15.0 % [facility] Hematocrit (Bld) [Volume fraction] 41.0 % 36.0 - 46.0 % [facility] Hemoglobin (Bld) [Mass/Vol] 13.9 g/dL 11.5 - 15.5 g/dL [facility] Immature Gran % 0.4 % [facility] Lymphocytes (Bld) [#/Vol] 1.25 10*3/uL 1.00 - 4.00 k/uL [facility] Lymphocytes/100 WBC (Bld) 18.7 % [facility] MCH (RBC) [Entitic mass] 30.5 pg 26.0 - 34.0 pg [facility] MCHC (RBC) [Mass/Vol] 33.9 g/dL 30.5 - 36.0 g/dL [facility] MCV (RBC) [Entitic vol] 89.9 fL 80.0 - 100.0 fL [facility] Monocytes (Bld) [#/Vol] 0.52 10*3/uL <0.87 k/uL [facility] Monocytes/100 WBC (Bld) 7.8 % [facility] Neutrophils (Bld) [#/Vol] 4.73 10*3/uL 1.45 - 7.50 k/uL [facility] Neutrophils/100 WBC (Bld) 70.6 % [facility] Nucleated RBC (Bld) [#/Vol] 10*3/uL <0.01 k/uL [facility] Nucleated RBC/100 WBC (Bld) [Ratio] 0.0 /100 WBC [facility] Platelet mean volume (Bld) [Entitic vol] 9.2 fL 9.0 - 12.7 fL [facility] Platelets (Bld) [#/Vol] 286 10*3/uL 150 - 400 k/uL [facility] RBC (Bld) [#/Vol] 4.56 10*6/uL 3.90 - 5.2 0 m/uL [facility] WBC (Bld) [#/Vol] 6.70 10*3/uL 3.70 - 11. 00 k/uL [facility] Office Visit: Spine Visit- R sided low back painon 03-27-2017 Documentation of current medications (procedure) Done Invalid Interpretation Code [facility] Work Phone: Office Visit: Spine Visit- R sided low back painon 03-26-2017 Documentation of current medications (procedure) Done Invalid Interpretation Code [facility] Work Phone: Office Visit: Spine Visit- R sided low back painon 03-11-2017 Documentation of current medications (procedure) Done Invalid Interpretation Code [facility] Work Phone: Office Visit: Spine Visit- R sided low back painon 03-10-2017 Protein mass conc Done [facility] Work Phone: Office Visit: Spine Visit- R sided low back painon 03-05-2017 Documentation of current medications (procedure) Done Invalid Interpretation Code [facility] Work Phone: Office Visit: Spine Visit [facility] 03-03-2017 Dietary management education, guidance, and counseling (procedure) yes Invalid Interpretation Code [facility] Work Phone: Tobacco smoking status NHIS Former smoker [facility] Work Phone: Tobacco use CPHS Former smoker Invalid Interpretation Code [facility] Work Phone: Office Visit: hx of invasive MRSA infections x 2 , impending prosth hipon 11-24-2013 Documentation of current medications (procedure) Done Invalid Interpretation Code [facility] Work Phone: Lab Report: LMRSADon 013 GE use only - for LinkLogic import when terms are not otherwise specified Negative Invalid Interpretation Code Negative [facility] Work Phone: LtMRSA Negative Negative [facility] Work Phone: Office Visit: MRSA facialj/R max sinus infection, week 5/6on 08-02-2013 Tobacco use CPHS never smoker Invalid Interpretation Code [facility] Work Phone: Lab Report: CBCDon 3 Erythrocytes (RBC) 4.03 10*6/uL Low 4.2-5.4 [facility] Work Phone: Hematocrit (HCT) 35.1 % Low 37-47 [facility] Work Phone: Hematocrit Volume Fraction (Bld) 35.1 % Low 37-47 [facility] Work Phone: Hemoglobin (HGB) 11.6 g/dL Low 12.0-15.0 [facility] Work Phone: Platelets 347 10*3/mm3 Normal 150-450 [facility] Work Phone: Platelets #/vol (Bld) 347 10*3/mm3 Normal 150-450 [facility] Work Phone: RBC #/vol (Bld) 4.03 10*6/uL Low 4.2-5.4 [facility] Work Phone: WBC #/vol (Bld) 6.1 10*3/uL Normal 4.4-11.0 [facility] Work Phone: WBC (Leukocytes) 6.1 10*3/uL Normal 4.4-11.0 [facility] Work Phone: Lab Report: CMPon 07-11-2013 Alanine aminotransferase (ALT) 18 U/L Normal 12-78 [facility] Work Phone: Albumin 3.6 g/dL Normal 3.4-5.0 [facility] Work Phone: Alkaline phosphatase (ALP) 223 U/L High 50-136 [facility] Work Phone: ALP enzyme act/vol (Bld) 223 U/L High 50-136 [facility] Work Phone: Aspartate aminotransferase (AST) 18 U/L Normal 15-37 [facility] Work Phone: Bilirubin (total) 0.60 mg/dL Normal 0.00-1.00 [facility] Work Phone: Calcium 8.8 mg/dL Normal 8.5-10.1 [facility] Work Phone: Chloride 98 mmol/L Normal 98-107 [facility] Work Phone: Creatinine 0.7 mg/dL Normal 0.6-1.0 [facility] Work Phone: Glucose 86 mg/dL Normal 70-110 [facility] Work Phone: Glucose mass conc 86 mg/dL Normal 70-110 [facility] Work Phone: Potassium 4.0 mmol/L Normal 3.5-5.1 [facility] Work Phone: Sodium 133 mmol/L Low 136-145 [facility] Work Phone: Urea nitrogen 18 mg/dL Normal 7-18 [facility] Work Phone: Vital Signs Date Time Vital Sign Value Performing Clinician Facility 03-14-2025 14:32-0400 Diastolic blood pressure 80 mm[Hg] Olga Gaitan APRN.OUTDOOR STUDIES PROFESSOR Work Phone: [facility] 03-14-2025 14:32-0400 Systolic blood pressure 144 mm[Hg] Olga Gaitan APRN.OUTDOOR STUDIES PROFESSOR Work Phone: [facility] 03-14-2025 14:23-0400 Body mass index (BMI) [Ratio] 34.52 kg/m2 Olga Arnie CONDENSER WINDER.OUTDOOR STUDIES PROFESSOR Work Phone: [facility] 03-14-2025 14:23-0400 Body weight 94.1 kg Olga Arnie CONDENSER WINDER.OUTDOOR STUDIES PROFESSOR Work Phone: [facility] 03-14-2025 14:23-0400 Heart rate 90 /min Olga Arnie CONDENSER WINDER.OUTDOOR STUDIES PROFESSOR Work Phone: [facility] 03-14-2025 14:23-0400 SaO2% (BldA) [Mass fraction] 97 % Olga Arnie CONDENSER WINDER.OUTDOOR STUDIES PROFESSOR Work Phone: [facility] 07-13-2024 13:48-0400 Diastolic blood pressure 80 mm[Hg] Olga Arnie CONDENSER WINDER.OUTDOOR STUDIES PROFESSOR Work Phone: [facility] 07-13-2024 13:48-0400 Systolic blood pressure 144 mm[Hg] Olga Arnie CONDENSER WINDER.OUTDOOR STUDIES PROFESSOR Work Phone: [facility] 07-13-2024 13:46-0400 Body mass index (BMI) [Ratio] 33.46 kg/m2 Olga Arnie CONDENSER WINDER.OUTDOOR STUDIES PROFESSOR Work Phone: [facility] 07-13-2024 13:46-0400 Body weight 91.2 kg Olga Arnie CONDENSER WINDER.OUTDOOR STUDIES PROFESSOR Work Phone: [facility] 07-13-2024 13:46-0400 Heart rate 91 /min Olga Arnie CONDENSER WINDER.OUTDOOR STUDIES PROFESSOR Work Phone: [facility] 07-13-2024 13:46-0400 SaO2% (BldA) [Mass fraction] 96 % Olga Arnie CONDENSER WINDER.OUTDOOR STUDIES PROFESSOR Work Phone: [facility] 09-02-2022 14:42-0500 Body temperature 97.81 [degF] Grisel Older CONDENSER WINDER.OUTDOOR STUDIES PROFESSOR Work Phone: [facility] 09-02-2022 14:42-0500 Body weight 97.52 kg Grisel Older CONDENSER WINDER.OUTDOOR STUDIES PROFESSOR Work Phone: [facility] 09-02-2022 14:42-0500 Diastolic blood pressure 72 mm[Hg] Grisel Older CONDENSER WINDER.OUTDOOR STUDIES PROFESSOR Work Phone: [facility] 09-02-2022 14:42-0500 Heart rate 93 /min Grisel Older CONDENSER WINDER.OUTDOOR STUDIES PROFESSOR Work Phone: [facility] 09-02-2022 14:42-0500 SaO2% (BldA) [Mass fraction] 98 % Grisel Older CONDENSER WINDER.OUTDOOR STUDIES PROFESSOR Work Phone: [facility] 09-02-2022 14:42-0500 Systolic blood pressure 104 mm[Hg] Grisel Older CONDENSER WINDER.OUTDOOR STUDIES PROFESSOR Work Phone: [facility] 05-21-2022 10:36-0400 Body weight 96.62 kg Jaja Kirkpatrick CONDENSER WINDER.GRINDING MACHINE OPERATOR AUTOMATIC Work Phone: [facility] 05-21-2022 10:36-0400 Diastolic blood pressure 80 mm[Hg] Jaja Kirkpatrick CONDENSER WINDER.GRINDING MACHINE OPERATOR AUTOMATIC Work Phone: [facility] 05-21-2022 10:36-0400 Heart rate 91 /min Jaja Kirkpatrick CONDENSER WINDER.GRINDING MACHINE OPERATOR AUTOMATIC Work Phone: [facility] 05-21-2022 10:36-0400 Respiratory rate 18 /min Jaja Kirkpatrick CONDENSER WINDER.GRINDING MACHINE OPERATOR AUTOMATIC Work Phone: [facility] 05-21-2022 10:36-0400 SaO2% (BldA) [Mass fraction] 95 % Jaja Kirkpatrick CONDENSER WINDER.GRINDING MACHINE OPERATOR AUTOMATIC Work Phone: [facility] 05-21-2022 10:36-0400 Systolic blood pressure 132 mm[Hg] Jaja Kirkpatrick CONDENSER WINDER.GRINDING MACHINE OPERATOR AUTOMATIC Work Phone: [facility] 03-03-2017 13:39-0400 BMI (Body Mass Index) 33.44 kg/m2 Daisy Jha DC [facility] Work Phone: 03-03-2017 13:39-0400 Body weight 91.17 kg Daisy Jha DC [facility] Work Phone: 03-03-2017 13:39-0400 BP Diastolic 79 mm[Hg] Daisy Morelsi DC [facility] Work Phone: 03-03-2017 13:39-0400 BP Systolic 124 mm[Hg] Daisy Dossi DC [facility] Work Phone: 03-03-2017 13:39-0400 Weight 91.17 kg Daisy Dossi DC [facility] Work Phone: 11-24-2013 13:06-0500 BMI (Body Mass Index) 35.59 kg/m2 Berta Bondimes [facility] Work Phone: 11-24-2013 13:06-0500 Body Temperature 96.8 [degF] Berta Bondimes [facility] Work Phone: 11-24-2013 13:06-0500 BP Diastolic 82 mm[Hg] Berta Bondimes [facility] Work Phone: 11-24-2013 13:06-0500 BP Systolic 131 mm[Hg] Berta Bondimes [facility] Work Phone: 11-24-2013 13:06-0500 Pulse (Heart Rate) 78 /min Berta Isaac [facility] Work Phone: 11-24-2013 13:06-0500 Pulse Oximetry 97 % Berta Bondimes [facility] Work Phone: 11-24-2013 13:06-0500 Respiratory Rate 18 /min Berta Bondimes [facility] Work Phone: 11-24-2013 13:06-0500 Weight 96.66 kg Berta Bondimes [facility] Work Phone: 08-02-2013 16:02-0400 Height 165.1 cm Berta Bondimes [facility] Work Phone: Encounters Encounter Date Encounter Type Care Provider Facility Start: 04-12-2025 End: 04-13-2025 Dianna Tam MD Work Phone: [facility] [place] Comment on above: Refill Request Start: 03-28-2025 End: 03-29-2025 Follow-up encounter Olga Gaitan APRN.OUTDOOR STUDIES PROFESSOR Work Phone: [facility] [place] Start: 03-14-2025 End: 03-14-2025 [facility] Facility:[facility] Start: 03-14-2025 End: 03-14-2025 Patient encounter procedure Olga Arnie CONDENSER WINDER.OUTDOOR STUDIES PROFESSOR Work Phone: [facility] [place] Comment on above: Generalized OA (Prim chrissie Dx); Fall, initial encounter; Acquired hypothyroidism; Essential hypertension; Mixed hyperlipidemia; Vitamin D deficiency; Encounter for immunization Start: 03-14-2025 End: 03-14-2025 [facility] Facility:[facility] Start: 02-21-2025 End: 02-21-2025 Refill Deb Tam MD Work Phone: [facility] [place] Comment on above: Refill Request Start: 12-20-2024 End: 12-20-2024 Refill Deb Tam MD Work Phone: [facility] [place] Comment on above: Refill Request Start: 11-09-2024 End: 11-09-2024 Refill Deb Tam MD Work Phone: [facility] [place] Comment on above: Refill Request Start: 07-13-2024 End: 07-13-2024 [facility] Facility:[facility] Start: 07-13-2024 End: 07-13-2024 Patient encounter procedure Olga Gaitan CONDENSER WINDER.OUTDOOR STUDIES PROFESSOR Work Phone: [facility] [place] Comment on above: Essential hypertensi on (Primary Dx); Acquired hypothyroidism; Vitamin D deficiency; Mixed hyperlipidemia; Iron deficiency anemia, unspecified iron deficiency anemia type; Generalized OA; Need for influenza vaccination; Need for COVID-19 vaccine; Encounter for screening examination for other mental health and behavioral disorders; Encounter for therapeutic drug monitoring Start: 05-10-2024 Refill Deb rivero MD Work Phone: [facility] [place] Comment on above: Refill Request Start: 04-02-2024 Refill Deb rivero MD Work Phone: [facility] [place] Comment on above: Refill Request Start: 03-10-2024 Telephone encounter Deb small MD Work Phone: [facility] [place] Comment on above: patient update/futur e apt Start: 02-24-2024 Refill Deb rivero MD Work Phone: [facility] [place] Comment on above: Refill Request Start: 01-26-2024 Refill Deb rivero MD Work Phone: [facility] [place] Comment on above: Refill Request Start: 12-29-2023 Refill Farhan read DO Work Phone: [facility] [place] Comment on above: Refill Request Start: 12-18-2023 Telephone encounter Deb small MD Work Phone: [facility] [place] Comment on above: Orders Start: 12-01-2023 Telephone encounter Deb small MD Work Phone: [facility] Start: 09-29-2023 Refill Deb rivero MD Work Phone: [facility] [place] Comment on above: Refill Request Start: 06-23-2023 Refill Olga Gaitan CONDENSER WINDER.OUTDOOR STUDIES PROFESSOR Work Phone: [facility] [place] Comment on above: Refill Request Start: 06-02-2023 Refill Olga Greener CONDENSER WINDER.OUTDOOR STUDIES PROFESSOR Work Phone: [facility] [place] Comment on above: Refill Request Start: 05-28-2023 Refill Deb rivero MD Work Phone: [address] [place] [address] Comment on above: Refill Request Start: 05-08-2023 Refill Deb rivero MD Work Phone: [facility] [place] Comment on above: Refill Request Start: 04-01-2023 Refill Deb rivero MD Work Phone: [facility] [place] Comment on above: Refill Request Start: 11-08-2022 Refill Deb rivero MD Work Phone: [facility] [place] Comment on above: Refill Request Start: 09-02-2022 End: 09-02-2022 Patient encounter procedure Grisel Asha CONDENSER WINDER.OUTDOOR STUDIES PROFESSOR Work Phone: [facility] [place] Comment on above: Partial thickness bu rn of lower extremity, right, initial encounter (Primary Dx) Start: 08-30-2022 Telephone encounter Deb small MD Work Phone: [facility] [place] Comment on above: Patient Update Start: 05-21-2022 End: 05-21-2022 Patient encounter procedure Jaja Kirkpatrick CONDENSER WINDER.GRINDING MACHINE OPERATOR AUTOMATIC Work Phone: [facility] [place] Comment on above: Encounter for immuni zation (Primary Dx); Mixed hyperlipidemia; Dysmetabolic syndrome X; Vitamin D deficiency; Acquired hypothyroidism; Essential hypertension; Peptic ulcer; Coronary artery disease involving [place] coronary artery of [place] heart without angina pectoris; Recurrent major depressive disorder, in partial remission (HCC); Other insomnia Start: 03-07-2022 Refill Deb rivero MD Work Phone: [facility] [place] Comment on above: Refill Request Start: 12-31-2021 Refill Deb rivero MD Work Phone: [facility] [place] Comment on above: Refill Request Procedures Date Procedure Procedure Detail Performing Clinician Start: 07-13-2024 [employer] COVI D-19 VACCINE AGE 12+ YR Olga Gaitan CONDENSER WINDER.OUTDOOR STUDIES PROFESSOR Work Phone: Start: 03-27-2017 End: 03-27-2017 Documentation of current medications Daisy Jha DC Start: 03-27-2017 End: 03-27-2017 Chiropractic manipulation Daisy Jha DC Work Phone: Start: 03-26-2017 End: 03-27-2017 Chiropractic manipulation Daisy Jha DC Work Phone: Start: 03-11-2017 End: 03-11-2017 Documentation of current medications Daisy Jha DC Start: 03-11-2017 End: 03-11-2017 Chiropractic manipulation Daisy Jha DC Work Phone: Start: 03-10-2017 End: 03-10-2017 Chiropractic manipulation Daisy Jha DC Work Phone: Start: 03-05-2017 End: 03-06-2017 Chiropractic manipulation Daisy Jha DC Work Phone: Start: 03-03-2017 End: 03-03-2017 Dietary management education, guidance, and counseling Daisy Jha DC Start: 03-03-2017 End: 03-03-2017 Chiropractic manipulation Daisy Jha DC Work Phone: Start: 03-03-2017 End: 03-03-2017 X-ray exam of lower spine Daisy Jha DC Work Phone: Plan of Treatment Date Care Activity Detail Author Start: 03-14-2028 Diabetes Screening Diabetes Screening [facility] Start: 10-28-2026 Diabetes Screening Diabetes Screening [facility] Start: 03-14-2026 Hepatitis B surface antibody level LDL Cholesterol [facility] Start: 12-27-2025 Anxiety Screening Anxiety Screening [facility] Start: 07-13-2025 Annual PCP Team Chronic Disease Visit Annual PCP Team Chronic Disease Visit [facility] Start: 05-21-2025 DIABETES SCREEN DIABETES SCREEN [facility] Start: 05-21-2025 Diabetes Screening Diabetes Screening [facility] Start: 05-16-2025 End: 05-16-2025 Patient encounter procedure 05/16/2025 1:40 PM EDT Office Visit [facility] [place] [address] [place] [address] Jaja Kirkpatrick APRN.GRINDING MACHINE OPERATOR AUTOMATIC [address] [place] [address] 2 month follow up [facility] [place] Comment on above: 2 month follow up Start: 03-14-2025 End: 03-14-2025 Patient encounter procedure 03/14/2025 2:00 PM EDT Office Visit [facility] [place] [address] [place] [address] Olga Gaitan APRN.OUTDOOR STUDIES PROFESSOR [address] [facility] [place], [place] [id number] 6m f/u [facility] [place] Comment on above: 6m f/u Start: 02-01-2025 End: 02-01-2025 Patient encounter procedure 02/01/2025 2:00 PM EDT Office Visit [facility] [place] [address] [place] [address] Olga Gaitan APRN.OUTDOOR STUDIES PROFESSOR [address] [facility] [place] [address] 6m f/u [facility] [place] Comment on above: 6m f/u Start: 01-10-2025 End: 01-10-2025 Patient encounter procedure 01/10/2025 4:20 PM EDT Office Visit [facility] [place] [address] [facility] [place] [id number] Deb Tam MD [address] [place] [address] 6 month follow up [facility] [place] Comment on above: 6 month follow up Start: 01-10-2025 Covid-19 Vaccine () Covid-19 Vaccine () [facility] Start: 12-27-2024 End: 03-28-2025 25-hydroxyvitamin D3 [Mass/volume] in Serum or Plasma VITAMIN D 25 HYDROXY Lab Routine Vitamin D deficiency Expected: 12/27/2024, Expires: 03/28/2025 [facility] Comment on above: Expected: 12/27/2024, Expires: Start: 12-27-2024 End: 03-28-2025 CBC W Auto Differential panel - Blood COMPLETE BLOOD COUNT AND DIFFERENTIAL Lab Routine Encounter for therapeutic drug monitoring Iron deficiency anemia, unspecified iron deficiency anemia type Expected: 12/27/2024, Expires: 03/28/[address] [facility] Work Phone: Comment on above: Expected: 12/27/2024, Expires: Start: 12-27-2024 End: 03-28-2025 Comprehensive metabolic 2000 panel - Serum or Plasma COMPREHENSIVE METABOLIC PANEL Lab Routine Encounter for therapeutic drug monitoring Expected: 12/27/2024, Expires: 03/28/2025 [facility] Comment on above: Expected: 12/27/2024, Expires: Start: 12-27-2024 End: 03-28-2025 Ferritin [Mass/volume] in Serum or Plasma FERRITIN Lab Routine Iron deficiency anemia, unspecified iron deficiency anemia type Expected: 12/27/2024, Expires: 03/28/2025 [facility] Comment on above: Expected: 12/27/2024, Expires: Start: 12-27-2024 End: 03-28-2025 Iron and Iron binding capacity panel - Serum or Plasma IRON AND TIBC Lab Routine Iron deficiency anemia, unspecified iron deficiency anemia type Expected: 12/27/2024, Expires: 03/28/2025 [facility] Comment on above: Expected: 12/27/2024, Expires: Start: 12-27-2024 End: 03-28-2025 LIPID PANEL, NONFASTING LIPID PANEL, NONFASTING Lab Routine Mixed hyperlipidemia Expected: 12/27/2024, Expires: 03/28/2025 [facility] Comment on above: Expected: 12/27/2024, Expires: Start: 12-27-2024 End: 03-28-2025 Thyrotropin [Units/volume] in Serum or Plasma THYROID STIMULATING HORMONE Lab Routine Acquired hypothyroidism Expected: 12/27/2024, Expires: 03/28/2025 [facility] Comment on above: Expected: 12/27/2024, Expires: Start: 12-27-2024 End: 03-28-2025 Thyroxine (T4) free [Mass/volume] in Serum or Plasma T4 FREE/FREE THYROXINE Lab Routine Acquired hypothyroidism Expected: 12/27/2024, Expires: 03/28/2025 [facility] Comment on above: Expected: 12/27/2024, Expires: Start: 12-27-2024 End: 03-28-2025 Triiodothyronine (T3) Free [Mass/volume] in Serum or Plasma T3, FREE Lab Routine Acquired hypothyroidism Expected: 12/27/2024, Expires: 03/28/2025 [facility] Comment on above: Expected: 12/27/2024, Expires: Start: 10-28-2024 Annual PCP Team Chronic Disease Visit Annual PCP Team Chronic Disease Visit [facility] Start: 10-28-2024 Hepatitis B surface antibody level LDL Cholesterol [facility] Start: 10-27-2024 Advance Directive Discussion Advance Directive Discussion [facility] Start: 10-27-2024 Medicare Advantage Annual Wellness Visit Medicare Advantage Annual Wellness Visit [facility] Start: 07-13-2024 End: 07-13-2024 Patient encounter procedure 07/13/2024 2:00 PM EDT Office Visit [facility] [place] [address] [place], [place] [id number] Olga Gaitan APRN.OUTDOOR STUDIES PROFESSOR [address] [place], [place] [id number] follow up hypertension/med check [facility] [place] Comment on above: follow up hypertension/med check Start: 06-27-2024 [facility] Start: 03-26-2024 End: 03-26-2024 Patient encounter procedure 03/26/2024 3:40 PM EDT Office Visit [facility] [place] [address] [place], [place] [id number] Deb Tam MD [address] [place], [place] [id number] follow up [facility] [place] Comment on above: follow up Start: 03-22-2024 DIABETES SCREEN DIABETES SCREEN [facility] Start: 02-26-2024 Covid-19 Vaccine ( season) Covid-19 Vaccine ( season) [facility] Start: 10-27-2023 SHINGRIX VACCINE (1 of 2) SHINGRIX VACCINE (1 of 2) [facility] Comment on above: Postponed from 1993 (Insurance Cov erage) Start: 10-27-2023 Urine microalbumin profile [facility] [facility] Comment on above: Postponed from 11/23/2013 (Insurance Cov erage) Start: 09-02-2023 ANNUAL PCP TEAM CHRONIC DISEASE VISIT ANNUAL PCP TEAM CHRONIC DISEASE VISIT [facility] Start: 09-02-2023 BP CONTROLLED (<130/80) BP CONTROLLED (<130/80) [facility] Start: 06-27-2023 Covid-19 Vaccine () Covid-19 Vaccine () [facility] Start: 06-27-2023 Influenza vaccination [facility] Start: 05-21-2023 BP CONTROLLED (<130/80) BP CONTROLLED (<130/80) [facility] Start: 05-21-2023 Hepatitis B surface antibody level LDL CHOLESTEROL [facility] Start: 05-18-2023 COVID-19 VACCINE (5 - Pfizer series) COVID-19 VACCINE (5 - Pfizer series) [facility] Start: 10-27-2022 ADVANCE DIRECTIVE DISCUSSION ADVANCE DIRECTIVE DISCUSSION [facility] Start: 09-21-2022 COVID-19 VACCINE (4 - Booster for Pfizer series) COVID-19 VACCINE (4 - Booster for Pfizer series) [facility] Start: 07-16-2022 COVID-19 VACCINE (4 - Booster for Pfizer series) COVID-19 VACCINE (4 - Booster for Pfizer series) [facility] Start: 06-27-2022 Influenza vaccination [facility] Start: 06-05-2022 ANNUAL PCP TEAM CHRONIC DISEASE VISIT ANNUAL PCP TEAM CHRONIC DISEASE VISIT [facility] Start: 06-05-2022 SHINGRIX VACCINE (1 of 2) SHINGRIX VACCINE (1 of 2) [facility] Comment on above: Postponed from 1993 (Insurance Cov erage) Start: 06-05-2022 Urine microalbumin profile DTAP,TDAP,TD (1 - Tdap) [facility] Comment on above: Postponed from 11/23/2013 (Insurance Cov erage) Start: 05-21-2022 End: 07-21-2022 Comprehensive metabolic 2000 panel - Serum or Plasma [facility] Work Phone: Comment on above: Expected: 05/21/2022, Expires: Start: 05-21-2022 End: 07-21-2022 Hemoglobin A1c in Blood [facility] Work Phone: Comment on above: Expected: 05/21/2022, Expires: 2 Start: 05-21-2022 End: 07-21-2022 Lipid 1996 panel - Serum or Plasma [facility] Work Phone: Comment on above: Expected: 05/21/2022, Expires: 2 Start: 05-21-2022 End: 07-21-2022 Magnesium [Mass/volume] in Serum or Plasma [facility] Work Phone: Comment on above: Expected: 05/21/2022, Expires: 2 Start: 05-21-2022 End: 07-21-2022 Thyrotropin [Units/volume] in Serum or Plasma [facility] Work Phone: Comment on above: Expected: 05/21/2022, Expires: 2 Start: 05-21-2022 End: 07-21-2022 Thyroxine (T4) free [Mass/volume] in Serum or Plasma [facility] Work Phone: Comment on above: Expected: 05/21/2022, Expires: 2 Start: 10-27-2021 ADVANCE DIRECTIVE DISCUSSION ADVANCE DIRECTIVE DISCUSSION [facility] Start: 07-29-2021 COVID-19 VACCINE (3 - Booster for Pfizer series) COVID-19 VACCINE (3 - Booster for Pfizer series) [facility] Start: 05-04-2021 Hepatitis B surface antibody level LDL CHOLESTEROL [facility] Start: 2018 RSV Vaccine (1 - 1-dose 75+ series) RSV Vaccine (1 - 1-dose 75+ series) [facility] Start: 03-27-2017 End: 03-27-2017 Appointment Appointment [facility] Work Phone: Start: 03-27-2017 End: 03-27-2017 Appointment Appointment [facility] Work Phone: Start: 03-26-2017 End: 03-26-2017 Appointment Appointment [facility] Work Phone: Start: 03-26-2017 End: 03-26-2017 Appointment Appointment [facility] Work Phone: Start: 03-26-2017 End: 03-27-2017 Follow up Appt 2x/week Follow up Appt 2x/week [facility] Work Phone: Start: 03-20-2017 End: 03-20-2017 Appointment Appointment [facility] Work Phone: Start: 03-17-2017 End: 03-17-2017 Appointment Appointment [facility] Work Phone: Start: 03-17-2017 End: 03-17-2017 Appointment Appointment [facility] Work Phone: Start: 03-13-2017 End: 03-13-2017 Appointment Appointment [facility] Work Phone: Start: 03-13-2017 End: 03-13-2017 Appointment Appointment [facility] Work Phone: Start: 03-11-2017 End: 03-11-2017 Appointment Appointment [facility] Work Phone: Start: 03-11-2017 End: 03-11-2017 Appointment Appointment [facility] Work Phone: Start: 03-11-2017 End: 03-11-2017 Follow up Appt 2x/week Follow up Appt 2x/week [facility] Work Phone: Start: 03-10-2017 End: 03-10-2017 Appointment Appointment [facility] Work Phone: Start: 03-10-2017 End: 03-10-2017 Appointment Appointment [facility] Work Phone: Start: 03-10-2017 End: 03-10-2017 Follow up Appt 3x/week Follow up Appt 3x/week [facility] Work Phone: Start: 03-05-2017 End: 03-06-2017 Follow up Appt 2x/week Follow up Appt 2x/week [facility] Work Phone: Start: 03-03-2017 End: 03-03-2017 Appointment Appointment [facility] Work Phone: Start: 03-03-2017 End: 03-03-2017 Follow up Appt 3x/week Follow up Appt 3x/week [facility] Work Phone: Start: 11-23-2013 Urine microalbumin profile [facility] Start: 08-02-2013 End: 08-02-2013 Ct maxillofacial w/o dye CT Sinuses [facility] Work Phone: Start: 08-02-2013 End: 08-02-2013 MRSA presence *MRSAD - M R [facility] Start: 2003 RSV Vaccine (1 - 1-dose 60+ series) RSV Vaccine (1 - 1-dose 60+ series) [facility] Start: 1993 SHINGRIX VACCINE (1 of 2) SHINGRIX VACCINE (1 of 2) [facility] Start: 1961 Anxiety Screening Anxiety Screening [facility] Start: 1961 BP CONTROLLED (<130/80) BP CONTROLLED (<130/80) [facility] PFIZER-BIONTECH COVI D-19 VACCINE AGE 12+ YR (COMIRNATY) PFIZER-BIONTECH COVID-19 VACCINE AGE 12+ YR (COMIRNATY) Immunization/Injection Routine Encounter for immunization 1 Occurrences starting 03/14/[address] [facility] Work Phone: Comment on above: 1 Occurrences starting 03/14/2025 [facility] Immunizations Immunization Date Immunization Notes Care Provider Michelle paredes 07-13-2024 COVID-19 vaccine, ag e 12+ yr (PFIZER-BIONTECH) Olga Gaitan CONDENSER WINDER.OUTDOOR STUDIES PROFESSOR Work Phone: [facility] 07-13-2024 influenza, high dose seasonal, preservative-free Olga Gaitan CONDENSER WINDER.OUTDOOR STUDIES PROFESSOR Work Phone: [facility] 10-28-2023 COVID-19 vaccine, ag e 12+ yr, 2022- season (PFIZER-BIONTECH) Deb Tam MD Work Phone: [facility] 10-28-2023 influenza (HD-IIV4) vaccine, age 65+ yr, high dose, quadrivalent, PF (FLUZONE HIGH-DOSE) Deb Tam MD Work Phone: [facility] 10-28-2023 influenza virus vacc ine, unspecified formulation Dbe Tam MD Work Phone: [facility] 01-16-2023 COVID-19 vaccine, ag e 12+ yr, bivalent (PFIZER-BIONTECH) Deb Tam MD Work Phone: [facility] Work Phone: 01-16-2023 influenza (HD-IIV4) vaccine, age 65+ yr, high dose, quadrivalent, PF (FLUZONE HIGH-DOSE) Deb Tam MD Work Phone: [facility] Work Phone: 01-16-2023 influenza virus vacc ine, unspecified formulation Deb Tam MD Work Phone: [facility] 05-21-2022 COVID-19 vaccine, ag e 12+ yr (PFIZER-BIONTECH - JANE TOP) Jaja Kirkpatrick CONDENSER WINDER.GRINDING MACHINE OPERATOR AUTOMATIC Work Phone: [facility] 07-25-2020 influenza, high-dose , quadrivalent vaccine (FLUZONE HIGH DOSE QUADRIVALENT) Deb Tam MD Work Phone: [facility] Work Phone: 07-24-2020 influenza, seasonal, injectable, preservative free Deb Tam MD Work Phone: [facility] Work Phone: 07-29-2018 Seasonal trivalent influenza vaccine, adjuvanted, preservative free Deb Tam MD Work Phone: [facility] 07-27-2018 influenza, seasonal, injectable, preservative free Deb Tam MD Work Phone: [facility] Work Phone: 07-29-2017 influenza, injectabl e, quadrivalent, preservative free Olga Gaitan CONDENSER WINDER.OUTDOOR STUDIES PROFESSOR Work Phone: [facility] 08-05-2016 influenza, high dose seasonal, preservative-free Deb Tam MD Work Phone: [facility] 09-06-2015 influenza, seasonal, injectable Deb aTm MD Work Phone: [facility] 08-21-2015 influenza, seasonal, injectable, preservative free Deb Tam MD Work Phone: [facility] Work Phone: 07-11-2015 pneumococcal conjuga te vaccine, 13 valent Deb Tam MD Work Phone: [facility] 12-26-2014 pneumococcal conjuga te vaccine, 13 valent Deb Tam MD Work Phone: [facility] 09-03-2014 influenza, seasonal, injectable Deb Tam MD Work Phone: [facility] 11-22-2013 tetanus and diphther ia toxoids, adsorbed, preservative free, for adult use (2 Lf of tetanus toxoid and 2 Lf of diphtheria toxoid) Deb Tam MD Work Phone: [facility] 08-27-2013 influenza virus vacc ine, unspecified formulation Deb Tam MD Work Phone: [facility] Work Phone: 08-04-2012 influenza virus vacc ine, unspecified formulation Deb Tam MD Work Phone: [facility] 01-19-2012 pneumococcal polysaccharide vaccine, 23 valent Deb Tam MD Work Phone: [facility] 09-19-2010 influenza virus vacc ine, unspecified formulation Deb Tam MD Work Phone: [facility] Work Phone: 09-19-2010 pneumococcal polysaccharide vaccine, 23 valent Deb Tam MD Work Phone: [facility] Work Phone: 08-09-2009 influenza virus vacc ine, unspecified formulation Deb Tam MD Work Phone: [facility] Work Phone: 09-03-2005 influenza virus vacc ine, unspecified formulation Deb Tam MD Work Phone: [facility] Work Phone: Payers Date Payer Category Payer Medicaid [id number] 2021 Medicare UHC MEDICARE [facility] MED[facility] [id number] 2021-Present [phone] [place] [id number] Medicare [id number] 2021 Medicare (Managed Care) [facility] MEDICARE [id number] 2021 Medicare [id number] 2019 Medicare [id number] Social History Date Type Detail Facility Start: 03-27-2012 End: 03-14-2025 Tobacco smoking status NHIS Ex-smoker [facility] Work Phone: Start: 10-27-1962 End: 10-27-1982 History of tobacco use Current smoker [facility] Work Phone: Start: 10-27-1962 End: 10-27-1982 History of tobacco use Cigarette Smoker [facility] Work Phone: Start: 07-02-2021 End: 03-14-2025 Alcohol intake Current non-drinker of alcohol (finding) [facility] Start: 1945 Sex Assigned At Not on file C [facility] Start: 11-03-2021 End: 12-03-2021 Exposure to SARS-CoV-2 (event) Not sure [facility] Start: 03-27-2012 End: 10-28-2023 Cigarettes smoked current (pack per day) - Reported 1 [facility] Start: 03-27-2012 End: 03-14-2025 Tobacco use and exposure Smokeless tobacco non-user [facility] Start: 01-16-2023 End: 10-28-2023 Tobacco use panel [facility] National Score (1-10 0), lower number is lower risk 64 [facility] Goals Date Patient Goal Desired Activity /State Personal health goal Functional Status Date Assessment Result Facility 04-11-2015 Are you deaf, or do you have serious difficulty hearing No 04/11/2015 11:44 AM Catherine Dominguez LPN No [facility] 04-11-2015 Do you have serious difficulty walking or climbing stairs No 04/11/2015 11:44 AM Catherine Dominguez LPN No [facility] 04-11-2015 Do you have difficul ty dressing or bathing No 04/11/2015 11:44 AM Catherine Dominguez LPN No [facility] 04-11-2015 Because of a physica l, mental, or emotional condition, do you have difficulty doing errands alone such as visiting a physician's office or shopping No 04/11/2015 11:44 AM Catherine Dominguez LPN No [facility] 12-26-2014 Are you blind, or do you have serious difficulty seeing, even when wearing glasses No 12/26/2014 2:33 PM Catherine Gar LPN No [facility] Mental Status Date Assessment Result Facility 04-11-2015 Because of a physica l, mental, or emotional condition, do you have serious difficulty concentrating, remembering, or making decisions No 04/11/2015 11:44 AM EDT Catherine Hurley LPN No [facility] Clinical Notes 01-03-2022 to 04-13-2025 Telephone Encounter - Deb Tam MD - 04/13/2025 1:01 PM EDTTelephone Encounter - Deb Tam MD - 04/13/2025 1:01 PM EDTTelephone Encounter - Dai Hercules - 04/12/2025 1:21 PM EDT Note Date & Type Note Facility 04-13-2025 Telephone encount er Note The following approved medication requests have been transmitted electronically. Requested Prescriptions Pending Prescriptions Disp Refills meloxicam (MOBIC) 15 mg tablet 90 tablet 3 Sig: Take 1 tablet by mouth once daily as needed. Deb Tam MD [facility] 04-13-2025 Miscellaneous Notes Formattin g of this note is different from the original. The following approved medication requests have been transmitted electronically. Requested Prescriptions Pending Prescriptions Disp Refills meloxicam (MOBIC) 15 mg tablet 90 tablet 3 Sig: Take 1 tablet by mouth once daily as needed. Deb Tam MD Prescription Refill Information The patient has been identified by name and date of : Yes Caregiver verified no other encounters exist for this prescription request: Yes Caregiver confirmed with patient/requestor that no other refills are due, in the near future, with this provider at this time: Yes The last office visit in the department: 03-14-25 Does the patient have a future office visit with this provider/department: Yes Requested Prescriptions Pending Prescriptions Disp Refills meloxicam (MOBIC) 15 mg tablet 90 tablet 3 Sig: Take 1 tablet by mouth once daily as needed. Dai Hercules April 12, 2025 1:21 PM documented in this encounter [facility] 04-12-2025 Telephone encount er Note Prescription Refill Information The patient has been identified by name and date of : Yes Caregiver verified no other encounters exist for this prescription request: Yes Caregiver confirmed with patient/requestor that no other refills are due, in the near future, with this provider at this time: Yes The last office visit in the department: 03-14-25 Does the patient have a future office visit with this provider/department: Yes Requested Prescriptions Pending Prescriptions Disp Refills meloxicam (MOBIC) 15 mg tablet 90 tablet 3 Sig: Take 1 tablet by mouth once daily as needed. Dai Hercules April 12, 2025 1:21 PM [facility] 03-29-2025 Telephone encount er Note Patient returns call and provider message below reviewed with verbalized understanding. Syeda Solomon RN [facility] 03-29-2025 Miscellaneous Notes Formattin g of this note might be different from the original. Patient returns call and provider message below reviewed with verbalized understanding. Syeda Solomon RN LEFT MESSAGE FOR PATIENT TO CALL OFFICE. Great, let her know to increase the ferrous gluconate to twice daily and this will help her iron levels. Pt calls back to report multivitamin has 18 mg and ferrous gluconate has 28 mg daily. Joan Dawn LPN Trouble understanding patient due to static. She is taking ferrous gluconate 38 mg daily and a multivitamin that has 18 mg of iron daily. Call was dropped during mid conversation. Labs are stable but iron is still at the low end. Please see which iron supplement she is taking and let me know. Thanks! documented in this encounter [facility] 03-29-2025 Telephone encount er Note LEFT MESSAGE FOR PATIENT TO CALL OFFICE. [facility] 03-29-2025 Telephone encount er Note Great, let her know to increase the ferrous gluconate to twice daily and this will help her iron levels. [facility] 03-28-2025 Telephone encount er Note Pt calls back to report multivitamin has 18 mg and ferrous gluconate has 28 mg daily. Joan Dawn LPN [facility] 03-28-2025 Telephone encount er Note Trouble understanding patient due to static. She is taking ferrous gluconate 38 mg daily and a multivitamin that has 18 mg of iron daily. Call was dropped during mid conversation. [facility] 03-28-2025 Telephone encount er Note Labs are stable but iron is still at the low end. Please see which iron supplement she is taking and let me know. Thanks! [facility] 03-14-2025 Note HNO ID: [id number] Author: OLGA GAITAN APRN.AVA Service: ? Author Type: Nurse Practitioner Type: Progress Notes Filed: 03/14/2025 15:06 Note Text: SUBJECTIVE Kath Arriaga is a 79 year old female here today for a check up on her medical problems. Chief Complaint Patient presents with: F/U 6 months HPI Kath is a 79-year-old female, with a history of arthritis, presenting for a 6-month follow-up and evaluation after a recent fall. Kath reports a recent fall that occurred at home prior to arrival. She was sitting on her walker and pushing herself backwards when a wheel went off the sidewalk, causing her to fall. She sustained minor injuries, including a small abrasion on her right elbow and a laceration on her right fifth toe, which was noted to have some bleeding. She denies any other injuries from the fall. She did not hit her head or lose consciousness. Over the past 6 months, she has been experiencing significant arthritis pain, which she describes as the most prominent issue. The pain is particularly severe in the mornings, making it difficult for her to get out of bed. She has a history of a lower right back injury sustained years ago while working at [employer], which has contributed to her chronic pain. She is currently taking meloxicam daily for pain management, which provides some relief, but she notes that the effectiveness seems to diminish over time. She denies any chest pain, chest tightness, or dyspnea, but mentions a decrease in energy levels, which she attributes to aging. She has a history of taking Ambien for sleep but has discontinued its use and reports sleeping well without it. She inquires about her immunity to measles, stating that she had the disease as a child. She also expresses interest in receiving vaccinations, including the COVID-19 vaccine. Her medications were reviewed today and her list is now up to date. Medications Current Outpatient Medications Medication Sig Food Supplement, Lactose-Free (PROTEIN NUTRITIONAL SHAKE) liqd Take 8 ounces by mouth once daily. levothyroxine (SYNTHROID) 75 mcg tablet Take 1 tablet by mouth once daily. DULoxetine (CYMBALTA) 60 mg capsule Take 1 capsule by mouth once daily. esomeprazole (NEXIUM) 40 mg capsule Take 1 capsule by mouth two times a day before meals. losartan (COZAAR) 50 mg tablet Take 1 tablet by mouth once daily. ubidecarenone Q-10 (CO Q-10) 10 mg cap Take by mouth two times a day. loperamide HCl (IMODIUM ORAL) Take 1 tablet by mouth as needed. meloxicam (MOBIC) 15 mg tablet Take 1 tablet by mouth once daily as needed. nystatin (MYCOSTATIN) powder Apply 1 application to affected area four times daily. ketoconazole (NIZORAL) 2 % shampoo Apply 1 application to affected area once daily as needed. For scalp. rosuvastatin (CRESTOR) 10 mg tablet Take 10 mg by mouth once daily. Ferrous Gluconate (FERGON) 324 mg (38 mg iron) tablet Actually taking 41 mg tablet therapeutic multivitamin w/ iron (THERAGRAN-M) 27-0.4 mg tablet Take 1 tablet by mouth once daily. ACETAMINOPHEN (TYLENOL 8 HOUR ORAL) Take 500 mg by mouth once daily as needed. diphenhydrAMINE (BENADRYL) 25 mg capsule Take 25 mg by mouth once daily as needed. gabapentin (NEURONTIN) 100 mg capsule Take 1 capsule by mouth two times a day for 90 days. ergocalciferol, vitamin D2, (VITAMIN D2 ORAL) Take 1 capsule by mouth once daily. (Patient not taking: Reported on 03/14/2025) Walker [facility] Walker with wheels and a seat Dx: R26.2, Z91.81 diphenoxylate-atropine (LOMOTIL) 2.5-0.025 mg per tablet Take 1 tablet by mouth four times daily as needed for Diarrhea for up to 5 days. Underpads 30 X 30 pads Change daily and as needed. N39.46, N95.2 Diaper,Brief, Adult,Disposable (WINGS CLASSIC ADULT BRIEFS X-L) Pull ups with liner pads--change as needed at least 2 daily. N39.46, N95.2 OTC NUTRITIONAL SUPPLEMENT Boost Max, 2 cartons per day (Patient not taking: Reported on 03/14/2025) Miscellaneous Medical Supply [facility] Boost Max 1 can twice daily Calcium Citrate-Vitamin D3 250 mg calcium- 200 unit tab Take 1 tablet by mouth once daily. (Patient not taking: Reported on 03/14/2025) COMPOUNDED PRESCRIPTION BLOOD PRESSURE CUFF FOR HOME USE. DX: Hypertension I10 iron polysaccharide complex (FERREX-150) 150 mg iron capsule Take 1 capsule by mouth once daily. ASPIRIN/ACETAMINOPHEN/CAFFEINE (EXCEDRIN EXTRA STRENGTH ORAL) Take by mouth. No current facility-administered medications for this visit. ALLERGIES Allergen Reactions Cat Dander Other: See Comments Clindamycin Rash (no SOB). Rash all over. Not sure if from Bactrim or Clindamycin for sure but only 2 days of bactrim before had to go to ER Latex Rash, Hives Brintellix [Vortiox* GI Upset felt like raw inside Cats Other: See Comments Mildly positive skin test on 09/02/12 Dr. Burns's office Ciprofloxacin Other: See Comments, Hives made arthritis flare Doxycycline Other (more content not included)... [facility] 03-14-2025 History of Presen t illness Narrative SUBJECTIVE Kath Arriaga is a 79 year old female here today for a check up on her medical problems. Chief Complaint Patient presents with: F/U 6 months HPI Kath is a 79-year-old female, with a history of arthritis, presenting for a 6-month follow-up and evaluation after a recent fall. Kath reports a recent fall that occurred at home prior to arrival. She was sitting on her walker and pushing herself backwards when a wheel went off the sidewalk, causing her to fall. She sustained minor injuries, including a small abrasion on her right elbow and a laceration on her right fifth toe, which was noted to have some bleeding. She denies any other injuries from the fall. She did not hit her head or lose consciousness. Over the past 6 months, she has been experiencing significant arthritis pain, which she describes as the most prominent issue. The pain is particularly severe in the mornings, making it difficult for her to get out of bed. She has a history of a lower right back injury sustained years ago while working at [employer], which has contributed to her chronic pain. She is currently taking meloxicam daily for pain management, which provides some relief, but she notes that the effectiveness seems to diminish over time. She denies any chest pain, chest tightness, or dyspnea, but mentions a decrease in energy levels, which she attributes to aging. She has a history of taking Ambien for sleep but has discontinued its use and reports sleeping well without it. She inquires about her immunity to measles, stating that she had the disease as a child. She also expresses interest in receiving vaccinations, including the COVID-19 vaccine. Her medications were reviewed today and her list is now up to date. Medications Current Outpatient Medications Medication Sig Food Supplement, Lactose-Free (PROTEIN NUTRITIONAL SHAKE) liqd Take 8 ounces by mouth once daily. levothyroxine (SYNTHROID) 75 mcg tablet Take 1 tablet by mouth once daily. DULoxetine (CYMBALTA) 60 mg capsule Take 1 capsule by mouth once daily. esomeprazole (NEXIUM) 40 mg capsule Take 1 capsule by mouth two times a day before meals. losartan (COZAAR) 50 mg tablet Take 1 tablet by mouth once daily. ubidecarenone Q-10 (CO Q-10) 10 mg cap Take by mouth two times a day. loperamide HCl (IMODIUM ORAL) Take 1 tablet by mouth as needed. meloxicam (MOBIC) 15 mg tablet Take 1 tablet by mouth once daily as needed. nystatin (MYCOSTATIN) powder Apply 1 application to affected area four times daily. ketoconazole (NIZORAL) 2 % shampoo Apply 1 application to affected area once daily as needed. For scalp. rosuvastatin (CRESTOR) 10 mg tablet Take 10 mg by mouth once daily. Ferrous Gluconate (FERGON) 324 mg (38 mg iron) tablet Actually taking 41 mg tablet therapeutic multivitamin w/ iron (THERAGRAN-M) 27-0.4 mg tablet Take 1 tablet by mouth once daily. ACETAMINOPHEN (TYLENOL 8 HOUR ORAL) Take 500 mg by mouth once daily as needed. diphenhydrAMINE (BENADRYL) 25 mg capsule Take 25 mg by mouth once daily as needed. gabapentin (NEURONTIN) 100 mg capsule Take 1 capsule by mouth two times a day for 90 days. ergocalciferol, vitamin D2, (VITAMIN D2 ORAL) Take 1 capsule by mouth once daily. (Patient not taking: Reported on 03/14/2025) Walker misc Walker with wheels and a seat Dx: R26.2, Z91.81 diphenoxylate-atropine (LOMOTIL) 2.5-0.025 mg per tablet Take 1 tablet by mouth four times daily as needed for Diarrhea for up to 5 days. Underpads 30 X 30 pads Change daily and as needed. N39.46, N95.2 Diaper,Brief, Adult,Disposable (WINGS CLASSIC ADULT BRIEFS X-L) Pull ups with liner pads--change as needed at least 2 daily. N39.46, N95.2 OTC NUTRITIONAL SUPPLEMENT Boost Max, 2 cartons per day (Patient not taking: Reported on 03/14/2025) Miscellaneous Medical Supply misc Boost Max 1 can twice daily Calcium Citrate-Vitamin D3 250 mg calcium- 200 unit tab Take 1 tablet by mouth once daily. (Patient not taking: Reported on 03/14/2025) COMPOUNDED PRESCRIPTION BLOOD PRESSURE CUFF FOR HOME USE. DX: Hypertension I10 iron polysaccharide complex (FERREX-150) 150 mg iron capsule Take 1 capsule by mouth once daily. ASPIRIN/ACETAMINOPHEN/CAFFEINE (EXCEDRIN EXTRA STRENGTH ORAL) Take by mouth. No current facility-administered medications for this visit. ALLERGIES Allergen Reactions Cat Dander Other: See Comments Clindamycin Rash (no SOB). Rash all over. Not sure if from Bactrim or Clindamycin for sure but only 2 days of bactrim before had to go to ER Latex Rash, Hives Brintellix [Vortiox* GI Upset felt like raw inside Cats Other: See Comments Mildly positive skin test on 09/02/12 Dr. Burns's office Ciprofloxacin Other: See Comments, Hives made arthritis flare Doxycycline Other: See Comments Macrobid [Nitrofura* Unknown Methotrexate Other: See Comments Fatigue after took that (Dr. Meier) Penicillins Shortness of Breath Trazodone Intolerance Too drowsy ACTIVE PROBLEM LIST Coronary Artery Disease Involving [place] Coronary Artery of [place] Heart Without Angina Pectoris - 05/04/2020 Comment: s/p coronary stent Essential Hypertension - 05/04/2020 Recurrent Major Depressive Disorder, in Partial Remission - 02/05/2018 Dnr (Do Not Resuscitate) - 04/08/2014 Comment: DNR-CC form signed per patient request Hx of Herpes Genitalis - 11/23/2013 Vitamin D Deficiency - 11/28/2009 Lumbago - 10/03/2009 Lactose Intolerance - 08/09/2009 Flatulence, Eructation, and Gas Pain - 03/07/2009 Benign Neoplasm of Colon - 03/07/2009 Dysmetabolic Syndrome X - 02/13/2009 Osteopenia - 02/29/2008 Mixed Hyperlipidemia - 06/17/2006 Migraine Without Aura Allergic Rhinitis, Cause Unspecified Comment: Allergic rhinitis Peptic Ulcer Obesity Hypothyroidism Social History Tobacco Use Smoking status: Former Current packs/day: 0.00 Average packs/day: 1 pack/day for 20.0 years (20.0 ttl pk-yrs) Types: Cigarettes Start date: 10/27/1962 Quit date: 10/27/1982 Years since quittin.4 Smokeless tobacco: Never Substance Use Topics Alcohol use: No Constitutional: (+) fatigue Cardiovascular: (-) chest pain, (-) chest tightness Musculoskeletal: (+) arthralgia, (+) back pain, (+) morning stiffness Skin: (+) right pinky toe wound Psychiatric: (-) sleep disturbance OBJECTIVE BP 144/80 Pulse 90 Wt 207 lb 7.3 oz (94.1kg) SpO2 97% Physical Exam Vitals and nursing note reviewed. Constitutional: General: She is awake. She is not in acute distress. Appearance: Normal appearance. She is well-developed and well-groomed. She is not ill-appearing, toxic-appearing or diaphoretic. HENT: Head: Normocephalic. Right Ear: External ear normal. Left Ear: External ear normal. Nose: Nose normal. Eyes: General: Vision grossly intact. Conjunctiva/sclera: Conjunctivae normal. Pupils: Pupils are equal, round, and reactive to light. Neck: Vascular: No JVD. Trachea: Trachea normal. Cardiovascular: Rate and Rhythm: Normal rate and regular rhythm. Pulses: Normal pulses. Heart sounds: Normal heart sounds. No murmur heard. Pulmonary: Effort: Pulmonary effort is normal. No accessory muscle usage, prolonged expiration or respiratory distress. Breath sounds: Normal breath sounds. Musculoskeletal: Cervical back: Neck supple. Skin: General: Skin is warm and dry. Capillary Refill: Capillary refill takes less than 2 seconds. Neurological: General: No focal deficit present. Mental Status: She is alert and oriented to person, place, and time. Mental status is at baseline. Psychiatric: Attention and Perception: Attention and perception normal. Mood and Affect: Mood and affect normal. Speech: Speech normal. Behavior: Behavior normal. Behavior is cooperative. Thought Content: Thought content normal. Cognition and Memory: Cognition and memory normal. Judgment: Judgment normal. ASSESSMENT/PLAN: 1. Generalized OA (M15.9) Chronic pain and stiffness, particularly in the lower right back, exacerbated by a previous injury. Currently managed with meloxicam, which provides some relief. - Continue meloxicam as prescribed. - Initiate gabapentin 100 mg PO BID; discussed potential benefits and side effects. - Follow-up in 2 months to assess efficacy and tolerability of gabapentin. 2. Fall, initial encounter (W19.XXXA) Recent fall while using a walker, resulting in minor abrasions on the right elbow and right pinky toe. No significant injuries reported. Monitor for any delayed symptoms or complications. 3. Acquired hypothyroidism (E03.9) Stable. Ordered blood work to assess thyroid function. 4. Essential hypertension (I10) Blood pressure slightly elevated, likely due to recent fall. Monitor blood pressure readings. 5. Mixed hyperlipidemia (E78.2) Stable. Ordered blood work to assess lipid levels. 6. Vitamin D deficiency (E55.9) Stable. Ordered blood work to assess vitamin D levels. 7. Encounter for immunization (Z23) Due for COVID-19 vaccination. Administer COVID-19 vaccine today. Recording using [employer] software for draft documentation of the visit was discussed with the patient/authorized litigation claim representative; all questions welcomed and answered. Patient/authorized litigation claim representative agreed to proceed Portions of this note have been entered by ancillary staff. I have reviewed and when necessary edited, so that they are an adequate record of my encounter with this patient Please note that parts of this document were created using voice recognition software and therefore may contain grammatical errors. Patient verbalizes understanding of instructions from today's visit and in agreement with treatment plan. Questions answered. Agrees to call the office if questions, concerns of issues with acute symptoms not improving or if they worsen. See diagnoses and orders for additional plan(s). Allergies and medications were reviewed, list was updated, and refills given if needed. Past medical, surgical, social, and family history reviewed and updated as appropriate. Encouraged proper diet & exercise as well as compliance with taking medications. Age-appropriate health preventative measures were discussed. Return in about 2 months (around 05/14/2025) for recheck on new medication.. ANUP Richards documented in this encounter [facility] 02-21-2025 Telephone encount er Note The patient has been identified by name and date of : Yes Caregiver verified no other encounters exist for this prescription request: Yes Caregiver confirmed with patient/requestor that no other refills are due, in the near future, with this provider at this time: Yes The last office visit in the department: 07/13/2024 Does the patient have a future office visit with this provider/department: Yes 03/14/2025 Requested Prescriptions Pending Prescriptions Disp Refills levothyroxine (SYNTHROID) 75 mcg tablet 90 tablet 3 Sig: Take 1 tablet by mouth once daily. Kait Pearson RN February 21, 2025 1:33 PM [facility] 02-21-2025 Miscellaneous Notes Formattin g of this note is different from the original. The patient has been identified by name and date of : Yes Caregiver verified no other encounters exist for this prescription request: Yes Caregiver confirmed with patient/requestor that no other refills are due, in the near future, with this provider at this time: Yes The last office visit in the department: 07/13/2024 Does the patient have a future office visit with this provider/department: Yes 03/14/2025 Requested Prescriptions Pending Prescriptions Disp Refills levothyroxine (SYNTHROID) 75 mcg tablet 90 tablet 3 Sig: Take 1 tablet by mouth once daily. Kait Pearson RN February 21, 2025 1:33 PM documented in this encounter [facility] 12-20-2024 Telephone encount er Note The following approved medication requests have been transmitted electronically. Requested Prescriptions Pending Prescriptions Disp Refills DULoxetine (CYMBALTA) 60 mg capsule 90 capsule 3 Sig: Take 1 capsule by mouth once daily. Deb Tam MD [facility] 12-20-2024 Miscellaneous Notes Formattin g of this note is different from the original. The following approved medication requests have been transmitted electronically. Requested Prescriptions Pending Prescriptions Disp Refills DULoxetine (CYMBALTA) 60 mg capsule 90 capsule 3 Sig: Take 1 capsule by mouth once daily. Deb Tam MD Prescription Refill Information The patient has been identified by name and date of : Yes Caregiver verified no other encounters exist for this prescription request: Yes Caregiver confirmed with patient/requestor that no other refills are due, in the near future, with this provider at this time: Yes The last office visit in the department: 07/13/24 Does the patient have a future office visit with this provider/department: Yes 02/01/25 Requested Prescriptions Pending Prescriptions Disp Refills DULoxetine (CYMBALTA) 60 mg capsule 90 capsule 3 Sig: Take 1 capsule by mouth once daily. Joan Dawn LPN December 20, 2024 12:18 PM documented in this encounter [facility] 12-20-2024 Telephone encount er Note Prescription Refill Information The patient has been identified by name and date of : Yes Caregiver verified no other encounters exist for this prescription request: Yes Caregiver confirmed with patient/requestor that no other refills are due, in the near future, with this provider at this time: Yes The last office visit in the department: 07/13/24 Does the patient have a future office visit with this provider/department: Yes 02/01/25 Requested Prescriptions Pending Prescriptions Disp Refills DULoxetine (CYMBALTA) 60 mg capsule 90 capsule 3 Sig: Take 1 capsule by mouth once daily. Joan Dawn LPN December 20, 2024 12:18 PM [facility] 11-09-2024 Telephone encount er Note The patient has been identified by name and date of : Yes Caregiver verified no other encounters exist for this prescription request: Yes Caregiver confirmed with patient/requestor that no other refills are due, in the near future, with this provider at this time: Yes The last office visit in the department: 07/13/2024 Does the patient have a future office visit with this provider/department: Yes 02/01/2025 Requested Prescriptions Pending Prescriptions Disp Refills losartan (COZAAR) 50 mg tablet 90 tablet 1 Sig: Take 1 tablet by mouth once daily. Kait Pearson RN November 09, 2024 1:53 PM [facility] 11-09-2024 Miscellaneous Notes Formattin g of this note is different from the original. The patient has been identified by name and date of : Yes Caregiver verified no other encounters exist for this prescription request: Yes Caregiver confirmed with patient/requestor that no other refills are due, in the near future, with this provider at this time: Yes The last office visit in the department: 07/13/2024 Does the patient have a future office visit with this provider/department: Yes 02/01/2025 Requested Prescriptions Pending Prescriptions Disp Refills losartan (COZAAR) 50 mg tablet 90 tablet 1 Sig: Take 1 tablet by mouth once daily. Kait Pearson RN November 09, 2024 1:53 PM documented in this encounter [facility] 07-13-2024 Note HNO ID: [id number] Author: OLGA GAITAN APRN.[employer]UDIES PROFESSOR Service: ? Author Type: Nurse Practitioner Type: Progress Notes Filed: 07/13/2024 14:45 Note Text: SUBJECTIVE Kath Arriaga is a 78 year old female here today for a check up on her medical problems. Chief Complaint Patient presents with: F/U 6 months Immunizations: Flu vaccination SUAD Arriaga is a 78 year old female. She is an established patient of Deb Tam MD. Here today for a 6 month follow up. Overall doing okay. Notes issues with arthritis aches and pains but managing. Sleep is okay. Stopped her Ambien. Sleep is okay without this. Not using her CPAP. Hasn't for years. Appetite is good. No bowel troubles. Doing okay taking her medicine. History of HTN, hypothyroid, vitamin d def, HLD, iron def. Would like labs next visit. COVID and Flu vaccines today. Her medications were reviewed today and her list is now up to date. Medications Current Outpatient Medications Medication Sig esomeprazole (NEXIUM) 40 mg capsule Take 1 capsule by mouth two times a day before meals. losartan (COZAAR) 50 mg tablet Take 1 tablet by mouth once daily. meloxicam (MOBIC) 15 mg tablet Take 1 tablet by mouth once daily as needed. levothyroxine (SYNTHROID) 75 mcg tablet Take 1 tablet by mouth once daily. DULoxetine (CYMBALTA) 60 mg capsule Take 1 capsule by mouth once daily. nystatin (MYCOSTATIN) powder Apply 1 application to affected area four times daily. ketoconazole (NIZORAL) 2 % shampoo Apply 1 application to affected area once daily as needed. For scalp. rosuvastatin (CRESTOR) 10 mg tablet Take 10 mg by mouth once daily. Calcium Citrate-Vitamin D3 250 mg calcium- 200 unit tab Take 1 tablet by mouth once daily. Ferrous Gluconate (FERGON) 324 mg (38 mg iron) tablet Actually taking 41 mg tablet therapeutic multivitamin w/ iron (THERAGRAN-M) 27-0.4 mg tablet Take 1 tablet by mouth once daily. ACETAMINOPHEN (TYLENOL 8 HOUR ORAL) Take 500 mg by mouth once daily as needed. diphenhydrAMINE (BENADRYL) 25 mg capsule Take 25 mg by mouth once daily as needed. ubidecarenone Q-10 (CO Q-10) 10 mg cap Take by mouth two times a day. ergocalciferol, vitamin D2, (VITAMIN D2 ORAL) Take 1 capsule by mouth once daily. loperamide HCl (IMODIUM ORAL) Take 1 tablet by mouth as needed. Walker misc Walker with wheels and a seat Dx: R26.2, Z91.81 diphenoxylate-atropine (LOMOTIL) 2.5-0.025 mg per tablet Take 1 tablet by mouth four times daily as needed for Diarrhea for up to 5 days. Underpads 30 X 30 pads Change daily and as needed. N39.46, N95.2 Diaper,Brief, Adult,Disposable (WINGS CLASSIC ADULT BRIEFS X-L) Pull ups with liner pads--change as needed at least 2 daily. N39.46, N95.2 OTC NUTRITIONAL SUPPLEMENT Boost Max, 2 cartons per day Miscellaneous Medical Supply misc Boost Max 1 can twice daily COMPOUNDED PRESCRIPTION BLOOD PRESSURE CUFF FOR HOME USE. DX: Hypertension I10 iron polysaccharide complex (FERREX-150) 150 mg iron capsule Take 1 capsule by mouth once daily. ASPIRIN/ACETAMINOPHEN/CAFFEINE (EXCEDRIN EXTRA STRENGTH ORAL) Take by mouth. No current facility-administered medications for this visit. ALLERGIES Allergen Reactions Cat Dander Other: See Comments Clindamycin Rash (no SOB). Rash all over. Not sure if from Bactrim or Clindamycin for sure but only 2 days of bactrim before had to go to ER Latex Rash, Hives Brintellix [Vortiox* GI Upset felt like raw inside Cats Other: See Comments Mildly positive skin test on 09/02/12 Dr. Burns's office Ciprofloxacin Other: See Comments, Hives made arthritis flare Doxycycline Other: See Comments Macrobid [Nitrofura* Unknown Methotrexate Other: See Comments Fatigue after took that (Dr. Meier) Penicillins Shortness of Breath Trazodone Intolerance Too drowsy ACTIVE PROBLEM LIST Coronary Artery Disease Involving [place] Coronary Artery of [place] Heart Without Angina Pectoris - 05/04/2020 Comment: s/p coronary stent Essential Hypertension - 05/04/2020 Recurrent Major Depressive Disorder, in Partial Remission (Hcc) - 02/05/2018 Dnr (Do Not Resuscitate) - 04/08/2014 Comment: DNR-CC form signed per patient request Hx of Herpes Genitalis - 11/23/2013 Vitamin D Deficiency - 11/28/2009 Lumbago - 10/03/2009 Lactose Intolerance - 08/09/2009 Flatulence, Eructation, and Gas Pain - 03/07/2009 Benign Neoplasm of Colon - 03/07/2009 Dysmetabolic Syndrome X - 02/13/2009 Osteopenia - 02/29/2008 Mixed Hyperlipidemia - 06/17/2006 Migraine Without Aura Allergic Rhinitis, Cause Unspecified Comment: Allergic rhinitis Peptic Ulcer Obesity Hypothyroidism Social History Tobacco Use Smoking status: Former Current packs/day: 0.00 Average packs/day: 1 pack/day for 20.0 years (20.0 ttl pk-yrs) Types: Cigarettes Start date: 10/27/1962 Quit date: 10/27/1982 Years since quittin.7 Smokeless tobacco: Never Substance Use Topics Alcohol use: No (more content not included)... [facility] 07-13-2024 History of Presen t illness Narrative SUBJECTIVE Kath Arriaga is a 78 year old female here today for a check up on her medical problems. Chief Complaint Patient presents with: F/U 6 months Immunizations: Flu vaccination HPI Kath Arriaga is a 78 year old female. She is an established patient of Deb Tam MD. Here today for a 6 month follow up. Overall doing okay. Notes issues with arthritis aches and pains but managing. Sleep is okay. Stopped her Ambien. Sleep is okay without this. Not using her CPAP. Hasn't for years. Appetite is good. No bowel troubles. Doing okay taking her medicine. History of HTN, hypothyroid, vitamin d def, HLD, iron def. Would like labs next visit. COVID and Flu vaccines today. Her medications were reviewed today and her list is now up to date. Medications Current Outpatient Medications Medication Sig esomeprazole (NEXIUM) 40 mg capsule Take 1 capsule by mouth two times a day before meals. losartan (COZAAR) 50 mg tablet Take 1 tablet by mouth once daily. meloxicam (MOBIC) 15 mg tablet Take 1 tablet by mouth once daily as needed. levothyroxine (SYNTHROID) 75 mcg tablet Take 1 tablet by mouth once daily. DULoxetine (CYMBALTA) 60 mg capsule Take 1 capsule by mouth once daily. nystatin (MYCOSTATIN) powder Apply 1 application to affected area four times daily. ketoconazole (NIZORAL) 2 % shampoo Apply 1 application to affected area once daily as needed. For scalp. rosuvastatin (CRESTOR) 10 mg tablet Take 10 mg by mouth once daily. Calcium Citrate-Vitamin D3 250 mg calcium- 200 unit tab Take 1 tablet by mouth once daily. Ferrous Gluconate (FERGON) 324 mg (38 mg iron) tablet Actually taking 41 mg tablet therapeutic multivitamin w/ iron (THERAGRAN-M) 27-0.4 mg tablet Take 1 tablet by mouth once daily. ACETAMINOPHEN (TYLENOL 8 HOUR ORAL) Take 500 mg by mouth once daily as needed. diphenhydrAMINE (BENADRYL) 25 mg capsule Take 25 mg by mouth once daily as needed. ubidecarenone Q-10 (CO Q-10) 10 mg cap Take by mouth two times a day. ergocalciferol, vitamin D2, (VITAMIN D2 ORAL) Take 1 capsule by mouth once daily. loperamide HCl (IMODIUM ORAL) Take 1 tablet by mouth as needed. Walker [facility] Walker with wheels and a seat Dx: R26.2, Z91.81 diphenoxylate-atropine (LOMOTIL) 2.5-0.025 mg per tablet Take 1 tablet by mouth four times daily as needed for Diarrhea for up to 5 days. Underpads 30 X 30 pads Change daily and as needed. N39.46, N95.2 Diaper,Brief, Adult,Disposable (WINGS CLASSIC ADULT BRIEFS X-L) Pull ups with liner pads--change as needed at least 2 daily. N39.46, N95.2 OTC NUTRITIONAL SUPPLEMENT Boost Max, 2 cartons per day Miscellaneous Medical Supply [facility] Boost Max 1 can twice daily COMPOUNDED PRESCRIPTION BLOOD PRESSURE CUFF FOR HOME USE. DX: Hypertension I10 iron polysaccharide complex (FERREX-150) 150 mg iron capsule Take 1 capsule by mouth once daily. ASPIRIN/ACETAMINOPHEN/CAFFEINE (EXCEDRIN EXTRA STRENGTH ORAL) Take by mouth. No current facility-administered medications for this visit. ALLERGIES Allergen Reactions Cat Dander Other: See Comments Clindamycin Rash (no SOB). Rash all over. Not sure if from Bactrim or Clindamycin for sure but only 2 days of bactrim before had to go to ER Latex Rash, Hives Brintellix [Vortiox* GI Upset felt like raw inside Cats Other: See Comments Mildly positive skin test on 09/02/12 Dr. Burns's office Ciprofloxacin Other: See Comments, Hives made arthritis flare Doxycycline Other: See Comments Macrobid [Nitrofura* Unknown Methotrexate Other: See Comments Fatigue after took that (Dr. Meier) Penicillins Shortness of Breath Trazodone Intolerance Too drowsy ACTIVE PROBLEM LIST Coronary Artery Disease Involving [place] Coronary Artery of [place] Heart Without Angina Pectoris - 05/04/2020 Comment: s/p coronary stent Essential Hypertension - 05/04/2020 Recurrent Major Depressive Disorder, in Partial Remission (Hcc) - 02/05/2018 Dnr (Do Not Resuscitate) - 04/08/2014 Comment: DNR-CC form signed per patient request Hx of Herpes Genitalis - 11/23/2013 Vitamin D Deficiency - 11/28/2009 Lumbago - 10/03/2009 Lactose Intolerance - 08/09/2009 Flatulence, Eructation, and Gas Pain - 03/07/2009 Benign Neoplasm of Colon - 03/07/2009 Dysmetabolic Syndrome X - 02/13/2009 Osteopenia - 02/29/2008 Mixed Hyperlipidemia - 06/17/2006 Migraine Without Aura Allergic Rhinitis, Cause Unspecified Comment: Allergic rhinitis Peptic Ulcer Obesity Hypothyroidism Social History Tobacco Use Smoking status: Former Current packs/day: 0.00 Average packs/day: 1 pack/day for 20.0 years (20.0 ttl pk-yrs) Types: Cigarettes Start date: 10/27/1962 Quit date: 10/27/1982 Years since quittin.7 Smokeless tobacco: Never Substance Use Topics Alcohol use: No Review of Systems Respiratory: Negative. Cardiovascular: Negative. Musculoskeletal: Positive for arthralgias and gait problem. OBJECTIVE BP 144/80 Pulse 91 Wt 201 lb 1 oz (91.2kg) SpO2 96% Physical Exam Vitals and nursing note reviewed. Constitutional: General: She is awake. She is not in acute distress. Appearance: Normal appearance. She is well-developed and well-groomed. She is not ill-appearing, toxic-appearing or diaphoretic. HENT: Head: Normocephalic. Right Ear: External ear normal. Left Ear: External ear normal. Nose: Nose normal. Eyes: General: Vision grossly intact. Conjunctiva/sclera: Conjunctivae normal. Pupils: Pupils are equal, round, and reactive to light. Neck: Vascular: No JVD. Trachea: Trachea normal. Cardiovascular: Rate and Rhythm: Normal rate and regular rhythm. Pulses: Normal pulses. Heart sounds: Normal heart sounds. No murmur heard. Pulmonary: Effort: Pulmonary effort is normal. No accessory muscle usage, prolonged expiration or respiratory distress. Breath sounds: Normal breath sounds. Musculoskeletal: Cervical back: Neck supple. Skin: General: Skin is warm and dry. Capillary Refill: Capillary refill takes less than 2 seconds. Neurological: General: No focal deficit present. Mental Status: She is alert and oriented to person, place, and time. Mental status is at baseline. Psychiatric: Attention and Perception: Attention and perception normal. Mood and Affect: Mood and affect normal. Speech: Speech normal. Behavior: Behavior normal. Behavior is cooperative. Thought Content: Thought content normal. Cognition and Memory: Cognition and memory normal. Judgment: Judgment normal. ASSESSMENT/PLAN: 1. Essential hypertension - ICD9: 401.9, ICD10: I10 (primary diagnosis) - Controlled - Continue current medications - Recommend home blood pressure monitoring, to bring results to next visit - Encouraged sodium restriction, DASH or Mediterranean diet - Recommend regular aerobic exercise 2. Acquired hypothyroidism - ICD9: 244.9, ICD10: E03.9 - Instructed patient on importance of taking on an empty stomach either first thing in the morning or at bedtime. - THYROID STIMULATING HORMONE - T3, FREE - T4 FREE/FREE THYROXINE 3. Vitamin D deficiency - ICD9: 268.9, ICD10: E55.9 - VITAMIN D 25 HYDROXY 4. Mixed hyperlipidemia - ICD9: 272.2, ICD10: E78.2 - Control undetermined, due for labs - Continue current medications - Counseled on healthy diet and regular exercise - LIPID PANEL, NONFASTING 5. Iron deficiency anemia, unspecified iron deficiency anemia type - ICD9: 280.9, ICD10: D50.9 Update labs - COMPLETE BLOOD COUNT AND DIFFERENTIAL - IRON AND TIBC - FERRITIN 6. Generalized OA - ICD9: 715.00, ICD10: M15.9 Manageable 7. Need for influenza vaccination - ICD9: V04.81, ICD10: Z23 - INFLUENZA VACCINE, PRSV FREE, AGE 65+ YR, HIGH DOSE, TRIVALENT (FLUZONE HIGH-DOSE) 8. Need for COVID-19 vaccine - ICD9: V04.89, ICD10: Z23 - [employer] COVID-19 VACCINE AGE 12+ YR 9. Encounter for screening examination for other mental health and behavioral disorders - ICD9: V79.8, ICD10: Z13.39 - ANXIETY SCREENING 10. Encounter for therapeutic drug monitoring - ICD9: V58.83, ICD10: Z51.81 - COMPLETE BLOOD COUNT AND DIFFERENTIAL - COMPREHENSIVE METABOLIC PANEL Portions of this note have been entered by ancillary staff. I have reviewed and when necessary edited, so that they are an adequate record of my encounter with this patient Please note that parts of this document were created using voice recognition software and therefore may contain grammatical errors. Patient verbalizes understanding of instructions from today's visit and in agreement with treatment plan. Questions answered. Agrees to call the office if questions, concerns of issues with acute symptoms not improving or if they worsen. See diagnoses and orders for additional plan(s). Allergies and medications were reviewed, list was updated, and refills given if needed. Past medical, surgical, social, and family history reviewed and updated as appropriate. Encouraged proper diet & exercise as well as compliance with taking medications. Age-appropriate health preventative measures were discussed. Return in about 6 months (around 01/10/2025) for medicare wellness. ANUP Richards documented in this encounter [facility] 05-10-2024 Miscellaneous Notes Formattin g of this note is different from the original. The patient has been identified by name and date of : Yes Caregiver verified no other encounters exist for this prescription request: Yes Caregiver confirmed with patient/requestor that no other refills are due, in the near future, with this provider at this time: Yes The last office visit in the department: 10/28/2023 Does the patient have a future office visit with this provider/department: Yes 07/13/2024 Requested Prescriptions Pending Prescriptions Disp Refills esomeprazole (NEXIUM) 40 mg capsule 180 capsule 1 Sig: Take 1 capsule by mouth two times a day before meals. losartan (COZAAR) 50 mg tablet 90 tablet 1 Sig: Take 1 tablet by mouth once daily. Angie May RN May 10, 2024 1:24 PM documented in this encounter [facility] 05-10-2024 Telephone encount er Note The patient has been identified by name and date of : Yes Caregiver verified no other encounters exist for this prescription request: Yes Caregiver confirmed with patient/requestor that no other refills are due, in the near future, with this provider at this time: Yes The last office visit in the department: 10/28/2023 Does the patient have a future office visit with this provider/department: Yes 07/13/2024 Requested Prescriptions Pending Prescriptions Disp Refills esomeprazole (NEXIUM) 40 mg capsule 180 capsule 1 Sig: Take 1 capsule by mouth two times a day before meals. losartan (COZAAR) 50 mg tablet 90 tablet 1 Sig: Take 1 tablet by mouth once daily. Angie May RN May 10, 2024 1:24 PM [facility] 04-02-2024 Telephone encount er Note Requested Prescriptions Pending Prescriptions Disp Refills meloxicam (MOBIC) 15 mg tablet 90 tablet 3 Sig: Take 1 tablet by mouth once daily as needed. Date of last office visit in primary care: 10/28/2023 Date of next office visit in primary care: 07/13/2024 Please advise. Thank you. Elpidio Woodruff MA. [facility] 04-02-2024 Miscellaneous Notes Formattin g of this note is different from the original. Requested Prescriptions Pending Prescriptions Disp Refills meloxicam (MOBIC) 15 mg tablet 90 tablet 3 Sig: Take 1 tablet by mouth once daily as needed. Date of last office visit in primary care: 10/28/2023 Date of next office visit in primary care: 07/13/2024 Please advise. Thank you. Elpidio Woodruff MA. Patient has been identified by name and date of : Yes Patient phones for refill(s): Requested Prescriptions Pending Prescriptions Disp Refills meloxicam (MOBIC) 15 mg tablet 90 tablet 3 Sig: Take 1 tablet by mouth once daily as needed. Date of last office visit in primary care: 10/28/2023 Date of next office visit in primary care: 07/13/2024 Please advise. Thank you. Santa Cox. documented in this encounter [facility] 04-02-2024 Telephone encount er Note Patient has been identified by name and date of : Yes Patient phones for refill(s): Requested Prescriptions Pending Prescriptions Disp Refills meloxicam (MOBIC) 15 mg tablet 90 tablet 3 Sig: Take 1 tablet by mouth once daily as needed. Date of last office visit in primary care: 10/28/2023 Date of next office visit in primary care: 07/13/2024 Please advise. Thank you. Santa Cox. [facility] 03-10-2024 Telephone encount er Note FYI: Pt called and cancelled apt 03-26-[address] Tam and wanted apt moved to June. Pt reports she feels good and does not want to come in February and again requested apt in June. Pt was made aware that she is on a controled medication Ambien and you have to be seen every so many months. Pt still insisted on cancelling apt in February and reports if she is not able to get the Ambien when it is due for refill she is aware provider may not be able to fill.. Pt verbalizes under standing. Lina Caldwell LPN [facility] 03-10-2024 Miscellaneous Notes Formattin g of this note might be different from the original. FYI: Pt called and cancelled apt 03-26-[address] Tam and wanted apt moved to June. Pt reports she feels good and does not want to come in February and again requested apt in June. Pt was made aware that she is on a controled medication Ambien and you have to be seen every so many months. Pt still insisted on cancelling apt in February and reports if she is not able to get the Ambien when it is due for refill she is aware provider may not be able to fill.. Pt verbalizes under standing. Lina Caldwell LPN documented in this encounter [facility] 02-24-2024 Telephone encount er Note Patient has been identified by name and date of : Yes Patient phones for refill(s): Requested Prescriptions Pending Prescriptions Disp Refills levothyroxine (SYNTHROID) 75 mcg tablet 90 tablet 3 Sig: Take 1 tablet by mouth once daily. Date of last office visit in primary care: 10/28/2023 Date of next office visit in primary care: 03/26/2024 Please advise. Thank you. Santa Cox. [facility] 02-24-2024 Miscellaneous Notes Formattin g of this note is different from the original. Patient has been identified by name and date of : Yes Patient phones for refill(s): Requested Prescriptions Pending Prescriptions Disp Refills levothyroxine (SYNTHROID) 75 mcg tablet 90 tablet 3 Sig: Take 1 tablet by mouth once daily. Date of last office visit in primary care: 10/28/2023 Date of next office visit in primary care: 03/26/2024 Please advise. Thank you. Santa Cox. documented in this encounter [facility] 01-27-2024 Miscellaneous Notes Formattin g of this note might be different from the original. Pt notified RX sent in. The following approved medication requests have been transmitted electronically. Requested Prescriptions Signed Prescriptions Disp Refills zolpidem (AMBIEN) 10 mg 30 tablet 1 Sig: Take 1 tablet by mouth at bedtime as needed (insomnia) for up to 60 days. (Each RX for 30 lasts 30 days) Do not start before January 30, 2024. Authorizing Provider: DEB TAM MD Patient has been identified by name and date of : Patient phones for refill(s): Requested Prescriptions Pending Prescriptions Disp Refills zolpidem (AMBIEN) 10 mg 30 tablet 1 Sig: Take 1 tablet by mouth at bedtime as needed (insomnia) for up to 60 days. (Each RX for 30 lasts 30 days) Date of last office visit in primary care: 10/28/2023 Date of next office visit in primary care: 03/26/2024 Please advise. Thank you. Taniya Suarez LPN. documented in this encounter [facility] 12-29-2023 Miscellaneous Notes Formattin g of this note is different from the original. Patient has been identified by name and date of : Yes, Provider PRESTON Patient phones for refill(s): Requested Prescriptions Pending Prescriptions Disp Refills DULoxetine (CYMBALTA) 60 mg capsule 90 capsule 3 Sig: Take 1 capsule by mouth once daily. Date of last office visit in primary care: 10/28/23 Date of next office visit in primary care: 03/26/24 Please advise. Thank you. Yohana Gutiérrez. documented in this encounter [facility] 12-18-2023 Miscellaneous Notes Formattin g of this note might be different from the original. Noted. Deb Tam MD Pt called and wanted to let PCP know that she no longer needs or wants to have the [facility] test or consult to vascular medicine at this time. Pt cancelled these appts. documented in this encounter [facility] 09-30-2023 Miscellaneous Notes Formattin g of this note might be different from the original. Patient returned call and given provider's message below and patient verbalized understanding. Appt made. Jenny Phillips RN Left a message for pt to call the office and ask to speak to a nurse. Lina Caldwell LPN Needs August appointment rescheduled since needs every 6 month follow up for controlled medications like Ambien. Not seen since December. See if can get help with transportation if that is an ongoing problem (August appointment cancellation with [facility] was listed as due to no transportation). Since it is winter and it is the holidays, understand if not able to get seen within the month but should get in within 2 months. The following approved medication requests have been transmitted electronically. Requested Prescriptions Signed Prescriptions Disp Refills zolpidem (AMBIEN) 10 mg 30 tablet 1 Sig: Take 1 tablet by mouth at bedtime as needed (insomnia) for up to 60 days. (Each RX for 30 lasts 30 days) Do not start before September 30, 2023. Authorizing Provider: DEB TAM MD Last OV: 01/16/23 - Next scheduled appt: 03/26/24 Patient has been identified by name and date of : Yes Requested Prescriptions Pending Prescriptions Disp Refills zolpidem (AMBIEN) 10 mg 30 tablet 2 Sig: Take 1 tablet by mouth at bedtime as needed (insomnia) for up to 90 days. (Each RX for 30 lasts 30 days) RX INSTRUCTIONS: Patient aware RX will be sent to pharmacy. No need to notify patient. Joan Dawn LPN documented in this encounter [facility] 05-28-2023 Miscellaneous Notes Formattin g of this note is different from the original. Patient has been identified by name and date of : Yes Patient phones for refill(s): Requested Prescriptions Pending Prescriptions Disp Refills esomeprazole (NEXIUM) 40 mg capsule 180 capsule 3 Sig: Take 1 capsule by mouth twice daily before meals. Date of last office visit in primary care: 01/16/2023 6 month follow-up: 08/26/2023 Last 2 Encounter Wt Readings: Date: Wt: 01/16/2023 95.7 kg (211 lb) 09/02/2022 97.5 kg (215 lb) Previous labs/tests for medication: Not applicable Please advise. Thank you. Jovita Chavez LPN Patient has been identified by name and date of : Yes Last office visit in this department: Visit date not found RX INSTRUCTIONS: Patient aware RX will be sent to pharmacy. No need to notify patient. Patient phones requesting refills as follows: Requested Prescriptions Pending Prescriptions Disp Refills esomeprazole (NEXIUM) 40 mg capsule 180 capsule 3 Sig: Take 1 capsule by mouth twice daily before meals. Please review and advise. Gris Troy documented in this encounter [facility] 05-08-2023 Miscellaneous Notes Formattin g of this note is different from the original. Medication refill requested by Patient Please review and advise. Requested Prescriptions Pending Prescriptions Disp Refills losartan (COZAAR) 50 mg tablet 90 tablet 1 Sig: Take 1 tablet by mouth once daily. Last encounter with this provider: 01/16/2023 Next appt: 08/26/2023 Last 1 Encounter BP Readings: Date: BP: 01/16/2023 140/78 LDL CHOLESTEROL due on 05/21/2023 WBC (k/uL) Date Value 05/21/2022 6.70 Hemoglobin (g/dL) Date Value 05/21/2022 13.9 Platelet Count (k/uL) Date Value 05/21/2022 286 Glucose (mg/dL) Date Value 05/21/2022 80 BUN (mg/dL) Date Value 05/21/2022 21 Creatinine (mg/dL) Date Value 05/21/2022 0.74 Sodium (mmol/L) Date Value 05/21/2022 130 (L) Potassium (mmol/L) Date Value 05/21/2022 4.5 Calcium, Total (mg/dL) Date Value 05/21/2022 9.9 Alkaline Phosphatase (U/L) Date Value 05/21/2022 102 Bilirubin, Total (mg/dL) Date Value 05/21/2022 0.5 AST (U/L) Date Value 05/21/2022 23 ALT (U/L) Date Value 05/21/2022 16 Cholesterol, Total (mg/dL) Date Value 05/21/2022 183 Triglyceride (mg/dL) Date Value 05/21/2022 93 TSH (mIU/L) Date Value 05/21/2022 1.770 Gris Phillips RN documented in this encounter [facility] 04-01-2023 Miscellaneous Notes Formattin g of this note might be different from the original. Next OV 08/26/23 Patient has been identified by name and date of : Yes Last office visit in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 Patient Records regulations: The Federal rules restrict any use of the information to criminally investigate or prosecute any alcohol or drug abuse patient.[facility] the event this information is protected by the Federal Confidentiality of Alcohol and Drug Abuse Patient Records regulations: The Federal rules restrict any use of the information to criminally investigate or prosecute any alcohol or drug abuse patient.[facility] the event this information is protected by the Federal Confidentiality of Alcohol and Drug Abuse Patient Records regulations: The Federal rules restrict any use of the information to criminally investigate or prosecute any alcohol or drug abuse patient.[facility] the event this information is protected by the Federal Confidentiality of Alcohol and Drug Abuse Patient Records regulations: The Federal rules restrict any use of the information to criminally investigate or prosecute any alcohol or drug abuse patient.[facility] the event this information is protected by the Federal Confidentiality of Alcohol and Drug Abuse Patient Records regulations: The Federal rules restrict any use of the information to criminally investigate or prosecute any alcohol or drug abuse patient.[facility] the event this information is protected by the Federal Confidentiality of Alcohol and Drug Abuse Patient Records regulations: The Federal rules restrict any use of the information to criminally investigate or prosecute any alcohol or drug abuse patient.[facility] the event this information is protected by the Federal Confidentiality of Alcohol and Drug Abuse Patient Records regulations: The Federal rules restrict any use of the information to criminally investigate or prosecute any alcohol or drug abuse patient.[facility] the event this information is protected by the Federal Confidentiality of Alcohol and Drug Abuse Patient Records regulations: The Federal rules restrict any use of the information to criminally investigate or prosecute any alcohol or drug abuse patient.[facility] the event this information is protected by the Federal Confidentiality of Alcohol and Drug Abuse Patient Records regulations: The Federal rules restrict any use of the information to criminally investigate or prosecute any alcohol or drug abuse patient.[facility] the event this information is protected by the Federal Confidentiality of Alcohol and Drug Abuse Patient Records regulations: The Federal rules restrict any use of the information to criminally investigate or prosecute any alcohol or drug abuse patient.[facility] the event this information is protected by the Federal Confidentiality of Alcohol and Drug Abuse Patient Records regulations: The Federal rules restrict any use of the information to criminally investigate or prosecute any alcohol or drug abuse patient.[facility] the event this information is protected by the Federal Confidentiality of Alcohol and Drug Abuse Patient Records regulations: The Federal rules restrict any use of the information to criminally investigate or prosecute any alcohol or drug abuse patient.[facility] the event this information is protected by the Federal Confidentiality of Alcohol and Drug Abuse Patient Records regulations: The Federal rules restrict any use of the information to criminally investigate or prosecute any alcohol or drug abuse patient.[facility] the event this information is protected by the Federal Confidentiality of Alcohol and Drug Abuse Patient Records regulations: The Federal rules restrict any use of the information to criminally investigate or prosecute any alcohol or drug abuse patient.[facility] the event this information is protected by the Federal Confidentiality of Alcohol and Drug Abuse Patient Records regulations: The Federal rules restrict any use of the information to criminally investigate or prosecute any alcohol or drug abuse patient.[facility] the event this information is protected by the Federal Confidentiality of Alcohol and Drug Abuse Patient Records regulations: The Federal rules restrict any use of the information to criminally investigate or prosecute any alcohol or drug abuse patient.[facility] the event this information is protected by the Federal Confidentiality of Alcohol and Drug Abuse Patient Records regulations: The Federal rules restrict any use of the information to criminally investigate or prosecute any alcohol or drug abuse patient.[facility] the event this information is protected by the Federal Confidentiality of Alcohol and Drug Abuse Patient Records regulations: The Federal rules restrict any use of the information to criminally investigate or prosecute any alcohol or drug abuse patient.[facility] the event this information is protected by the Federal Confidentiality of Alcohol and Drug Abuse Patient Records regulations: The Federal rules restrict any use of the information to criminally investigate or prosecute any alcohol or drug abuse patient.[facility] the event this information is protected by the Federal Confidentiality of Alcohol and Drug Abuse Patient Records regulations: The Federal rules restrict any use of the information to criminally investigate or prosecute any alcohol or drug abuse patient.[facility] the event this information is protected by the Federal Confidentiality of Alcohol and Drug Abuse Patient Records regulations: The Federal rules restrict any use of the information to criminally investigate or prosecute any alcohol or drug abuse patient.[facility] the event this information is protected by the Federal Confidentiality of Alcohol and Drug Abuse Patient Records regulations: The Federal rules restrict any use of the information to criminally investigate or prosecute any alcohol or drug abuse patient.[facility] the event this information is protected by the Federal Confidentiality of Alcohol and Drug Abuse Patient Records regulations: The Federal rules restrict any use of the information to criminally investigate or prosecute any alcohol or drug abuse patient.[facility] the event this information is protected by the Federal Confidentiality of Alcohol and Drug Abuse Patient Records regulations: The Federal rules restrict any use of the information to criminally investigate or prosecute any alcohol or drug abuse patient.[facility] the event this information is protected by the Federal Confidentiality of Alcohol and Drug Abuse Patient Records regulations: The Federal rules restrict any use of the information to criminally investigate or prosecute any alcohol or drug abuse patient.[facility] Center[facility] the event this information is protected by the Federal Confidentiality of Alcohol and Drug Abuse Patient Records regulations: The Federal rules restrict any use of the information to criminally investigate or prosecute any alcohol or drug abuse patient.[facility] Center[facility] the event this information is protected by the Federal Confidentiality of Alcohol and Drug Abuse Patient Records regulations: The Federal rules restrict any use of the information to criminally investigate or prosecute any alcohol or drug abuse patient.[facility] Reason for Visit (unrecogniz ed section and content) Reason Onset Date Comments Refill Request 12/31/2021 Reason Onset Date Comments Refill Request 03/07/2022 Reason Comments F/U 6 Month Reason Comments Patient Update Reason Comments Burn happened on y right thigh boiling water in [place] Reason Onset Date Comments Refill Request 11/08/2022 Reason Comments Refill Request Reason Onset Date Comments Refill Request 05/08/2023 Reason Onset Date Comments Refill Request 05/28/2023 Reason Onset Date Comments Refill Request 09/29/2023 Reason Comments Orders Reason Onset Date Comments Refill Request 12/29/2023 Reason Onset Date Comments Refill Request 01/26/2024 Reason Onset Date Comments Refill Request 02/24/2024 Reason Comments patient update/future apt Reason Onset Date Comments Refill Request 04/02/2024 Reason Onset Date Comments Refill Request 05/10/2024 Reason Onset Date Comments F/U 6 months Immunizations 07/13/2024 Flu vaccination Reason Onset Date Comments Refill Request 11/09/2024 Reason Onset Date Comments Refill Request 12/20/2024 Reason Onset Date Comments Refill Request 02/21/2025 Reason Comments F/U 6 months Reason Onset Date Comments Refill Request 04/12/2025 Care Teams (unrecognized sec tion and content) Flame Planer Relationship Specialty Start Date End Date Deb Tam MD [address] [place] [address] PCP - General 01/15/05 Coy Chan MD [address] [address] Specialty Transfer Car Operator Orthopedics 09/17/16 Flame Planer Relationship Specialty Start Date End Date Deb Tam MD [address] [place] [address] PCP - General 01/15/05 Coy Chan MD [address] [id number] Specialty Transfer Car Operator Orthopedics 09/17/16 Flame Planer Relationship Specialty Start Date End Date Deb Tam MD [address] [place] [address] PCP - General 01/15/05 Coy Chan MD [address] [place] [address] Specialty Transfer Car Operator Orthopedics 09/17/16 Flame Planer Relationship Specialty Start Date End Date Deb Tam MD [address] [place] [address] PCP - General 01/15/05 Coy Chan MD [address] [place] [address] Specialty Transfer Car Operator Orthopedics 09/17/16 Flame Planer Relationship Specialty Start Date End Date Deb Tam MD [address] [place] [address] PCP - General 01/15/05 Coy Chan MD [address] [place] [address] Specialty Transfer Car Operator Orthopedics 09/17/16 Flame Planer Relationship Specialty Start Date End Date Deb Tam MD [address] [place] [address] PCP - General 01/15/05 Coy Chan MD [address] [place] [address] Specialty Transfer Car Operator Orthopedics 09/17/16 Flame Planer Relationship Specialty Start Date End Date Deb Tam MD [address] [place] [address] PCP - General 01/15/05 Coy Chan MD [address] [place] [address] Specialty Transfer Car Operator Orthopedics 09/17/16 Flame Planer Relationship Specialty Start Date End Date Deb Tam MD [address] [place], [place] [address] PCP - General 01/15/05 Coy Chan MD [address] [place] [address] Specialty Transfer Car Operator Orthopedics 09/17/16 Flame Planer Relationship Specialty Start Date End Date Deb Tam MD [address] [place], [place] [address] PCP - General 01/15/05 Coy Chan MD [address] [place] [address] Specialty Transfer Car Operator Orthopedics 09/17/16 Flame Planer Relationship Specialty Start Date End Date Deb Tam MD [address] [place], [place] [address] PCP - General 01/15/05 Coy Chan MD [address] [place] [address] Specialty Transfer Car Operator Orthopedics 09/17/16 Flame Planer Relationship Specialty Start Date End Date Deb Tam MD [address] [place], [place] [address] PCP - General 01/15/05 Coy Chan MD [address] [place], [place] [address] Specialty Transfer Car Operator Orthopedics 09/17/16 Flame Planer Relationship Specialty Start Date End Date Deb Tam MD [address] [place], [place] [address]41 PCP - General 01/15/05 Coy Chan MD [address] [place] [address] Specialty Transfer Car Operator Orthopedics 09/17/16 Flame Planer Relationship Specialty Start Date End Date Deb Tam MD [address] [place], [place] 227[address] PCP - General 01/15/05 Coy Chan MD [address] [place] [address] [place] [address] Specialty Transfer Car Operator Orthopedics 09/17/16 Flame Planer Relationship Specialty Start Date End Date Deb Tam MD [address] [place], [place] [address] PCP - General 01/15/05 Coy Chan MD [address] [place] [address] [place] [address] Specialty Transfer Car Operator Orthopedics 09/17/16 Flame Planer Relationship Specialty Start Date End Date Deb Tam MD [address] [place], [place] [address]289[address] PCP - General 01/15/05 Coy Chan MD [address] [place], [place] [address] Specialty Transfer Car Operator Orthopedics 09/17/16 Flame Planer Relationship Specialty Start Date End Date Deb Tam MD [address] [place] [address] PCP - General 01/15/05 Coy Chan MD [address] [facility] [place] [address] Specialty Transfer Car Operator Orthopedics 09/17/16 Jaja Kirkpatrick, CONDENSER WINDER.GRINDING MACHINE OPERATOR AUTOMATIC [address] [place] [address] Sales Producer Internal Medicine 10/04/24 Olga Gaitan CONDENSER WINDER.OUTDOOR STUDIES PROFESSOR [address] [place] [address] Sales Producer Internal Medicine 10/04/24 Flame Planer Relationship Specialty Start Date End Date Deb Tam MD [address] [place] [address] PCP - General 01/15/05 Coy Chan MD [address] [facility] [address] [place] [address] Specialty Transfer Car Operator Orthopedics 09/17/16 Jaja Kirkpatrick, CONDENSER WINDER.GRINDING MACHINE OPERATOR AUTOMATIC [address] [place] [address] Sales Producer Internal Medicine 10/04/24 Olga Gaitan CONDENSER WINDER.OUTDOOR STUDIES PROFESSOR [address] [place] [address] Sales Producer Internal Medicine 10/04/24 Flame Planer Relationship Specialty Start Date End Date eDb Tam MD [address] [facility] [place] [address] PCP - General 01/15/05 Coy Chan MD [address] [facility] [address] [place] [address] Specialty Transfer Car Operator Orthopedics 09/17/16 Jaja Kirkpatrick APRN.GRINDING MACHINE OPERATOR AUTOMATIC [address] [facility] [place] [address] Sales Producer Internal Medicine 10/04/24 Olga Gaitan APRN.OUTDOOR STUDIES PROFESSOR [address] [facility] [place] [address] Sales Producer Internal Medicine 01/18/25 Flame Planer Relationship Specialty Start Date End Date Deb Tam MD [address] [facility] [place] [address] PCP - General 01/15/05 Coy Chna MD [address] [facility] [place] [address] Specialty Transfer Car Operator Orthopedics 09/17/16 Jaja Kirkpatrick APRN.GRINDING MACHINE OPERATOR AUTOMATIC [address] [facility] [place] [address] Sales Producer Internal Medicine 10/04/24 Olga Gaitan APRN.OUTDOOR STUDIES PROFESSOR [address] [facility] [place] [address] Sales Producer Internal Medicine 01/18/25 Flame Planer Relationship Specialty Start Date End Date Deb Tam MD [address] [facility] [place] [address] PCP - General 01/15/05 Coy Chan MD [address] [place] [address] Specialty Transfer Car Operator Orthopedics 09/17/16 Olga Gaitan APRN.OUTDOOR STUDIES PROFESSOR [address] [facility] [place] [address] Sales Producer Internal Medicine 01/18/25 Jaja Kirkpatrick APRN.GRINDING MACHINE OPERATOR AUTOMATIC [address] [facility] [place] [address] [facility] Internal Medicine 03/16/25 Flame Planer Relationship Specialty Start Date End Date Deb Tam MD [address] [place] [address] PCP - General 01/15/05 Coy Chan MD [address] [facility] [address] [place] [address] Specialty Transfer Car Operator Orthopedics 09/17/16 Olga Gaitan CONDENSER WINDER.OUTDOOR STUDIES PROFESSOR [address] [place] [address] [facility] Internal Medicine 01/18/25 Jaja Kirkpatrick CONDENSER WINDER.GRINDING MACHINE OPERATOR AUTOMATIC [address] [facility] [place] [address] [facility] Internal Medicine 03/16/25 INFORMATION SOURCE (unrecogn ized section and content) DATE CREATED AUTHOR 03/16/2025 [facility] FOR RECORDS PERTAINING TO PATIENTS WHO ARE OR HAVE BEEN ENROLLED IN A CHEMICAL DEPENDENCY/SUBSTANCEABUSE PROGRAM, SOME INFORMATION MAY BE OMITTED. This clinical summary was aggregated from multiple sources. Caution should be exercised in using it in the provision of clinical care. This summary normalizes information from multiple sources, and as a consequence, information in this document may materially change the coding, format and clinical context of patient data. In addition, data may be omitted in some cases. CLINICAL DECISIONS SHOULD BE BASED ON THE PRIMARY CLINICAL RECORDS. [facility] [employer] [facility]. provides no warranty or guarantee of the accuracy or completeness of information in this document.
[2025-05-08 15:29] VITALS: BP 134/82; PULSE 105; RESP 16; TEMP 36.9; O2SAT 96
[2025-05-08 15:52] VITALS: BP 132/78
[2025-05-08 17:52] VITALS: BP 141/64; PULSE 78; RESP 16; O2SAT 98
--- NOTE | 2025-05-08 17:55 | CM.ED ---
Social Work Date of referral: 05/08/25 Reason for referral: Discharge Planning Referred by: ED nurse Patient provided consent to Social Work visit. Patient is very hard of hearing. Also present was patient's cousin, Shade Mahmood, who resides in [place], [place]. Mr. Mahmood stated he has 3 brothers and 2 sisters, all whom live 5-10 minutes from patient. Benson: [phone], Tello: [phone], Vipul: [phone], Naty: [phone] and Shalini: [phone]. The primary concern is how patient is going to get to her apartment which is across the street from the hospital. Patient has 14 steps leading to/from her apartment which patient will not be able to ambulate. Event Specialist Product Demonstrator asked patient how she normally ambulates the steps at which point, patient replied one step at a time. Patient stated she has mostly stayed in her apartment since COVID at which time, patient decided that was her preference. Patient is connected with Medicaid and has a [facility] (CM) as well as a Waiver Features Reporter (WSC) through [facility]. Patient stated she has a Home Health Aide (MANAGER HEMATOLOGY) who comes in to her home every M//, 2 hours each day. Event Specialist Product Demonstrator told patient that her insurance will likely approve a substantial amount of additional hours for a Home Health Aide if patient requests at which point patient declined. Event Specialist Product Demonstrator asked patient about the possibility of being admitted for rehab if ED doctor feels it is needed at which point, patient declined. Patient stated she does not want to stay at the hospital and just wants to get back home to her apartment with her cat. Event Specialist Product Demonstrator asked patient how she will be able to toilet independently, shower, dress and prepare meals at which point patient stated she doesn't eat that much and has a MANAGER HEMATOLOGY who does meal prep for her, who assists patient with showering/hygiene, housekeeping, and anything else that needs to be done. Patient stated she is incontinent and mostly uses her pull ups. Event Specialist Product Demonstrator educated patient that her insurance should cover COT transportation and encouraged patient to either call and get her doctor's appointments scheduled first thing tomorrow or to call her [facility] or WSC who will also be able to assist if needed which patient stated she should be able to do. Mr. Mahmood asked if he could borrow a wheelchair to roll member to her apartment across the street and would bring the wheelchair back which Event Specialist Product Demonstrator stated should not be a problem. (16:19) Event Specialist Product Demonstrator was in the room with patient, Mr. Mahmood and patient's nurse, at which point, Mr. 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 Event Specialist Product Demonstrator and nurse expressed potential safety concerns related to plan. Event Specialist Product Demonstrator asked patient for her insurance card so Event Specialist Product Demonstrator could see if Event Specialist Product Demonstrator could arrange COT transportation, which Event Specialist Product Demonstrator was not able to do due to it being after hours. Mr Mahmood was not very happy and expressed dissatisfaction. There was another adult male in the room at that point who was on the phone with someone and then left. The 2 men left. Event Specialist Product Demonstrator requested a dinner tray for patient as patient stated she was very hungry. (17:55) Soon after, patient's nurse was able to secure a squad to take patient back to her apartment. (17:55) Hannah Reyes, CHARGE HAND, CELLULOSE INSULATION HELPER
--- NOTE | 2025-05-08 18:17 | ED.RN ---
pt. family member told social work that he was going to borrow a wheelchair to wheel her over to the [facility] he asks if we had any wheel chairs with out the bars because it would be easier to lift pt up the stairs in it. this rn told the family member most of the wheelchairs do have the bar above, and that they could not do that borrow. he states well I have 5 men waiting to carry her up in the wheelchair. explained to the pt. that we could not let that happen in a hospital wheelchair. pt. family member very upset and did not understnd why he could not., deanna, in room while explaining to pt. varun tried to call pt. insurance company to set up transport. phsyicians called. pt. family member left and came back told this nursejust so you know there is wheelchairs in out there that do not have the bar above the handls. explained again to the family that the hospital property could not be borrowed and used to lift the pt. up stairs. physicians called, let them know pt. jaiden shoulder does not have assitive device.
== END 2025-05-08 18:42 | disposition home or self-care (01) ==
LOC: ED 14:41
PROVIDERS: Emergency Provider Emergency Medicine; PCP Internal Medicine; Visit Provider Emergency Medicine
DX: S42.201A Unspecified fracture of upper end of right humerus, initial encounter for closed fracture (principal); I25.10 Atherosclerotic heart disease of native coronary artery without angina pectoris; Z87.891 Personal history of nicotine dependence; W18.39XA Other fall on same level, initial encounter; Z96.659 Presence of unspecified artificial knee joint; Z96.643 Presence of artificial hip joint, bilateral
CPT/HCPCS: 99284; 73030

== ENCOUNTER 2025-05-11 16:53 | Inpatient (IN) | payer MEDICARE, MEDICAID, SELFPAY ==
[2019-07-16 11:02] VITALS: BMI 34.8
[2025-05-11] VITALS (9 sets, daily range): BP systolic 102–132; BP diastolic 58–90; PULSE 90–95; RESP 12–20; TEMP 36.6–37; O2SAT 99–100; BMI 36.5; BMI 35.5
--- NOTE | 2025-05-11 17:13 | EX.ED.DYSGE1 ---
HPI History of Present Illness Chief Complaint: Weakness [facility] Medical History Atherosclerosis of coronary artery of [place] heart without angina pectoris Obstructive sleep apnea Abnormal nuclear stress test Home Medications ?Medication ?Instructions ?Recorded ?Last Taken ?Type levothyroxine 75 mcg tablet 75 mcg PO DAILY thyroid 12/23/13 11/08/20 History losartan 50 mg tablet 50 mg PO DAILY bp 03/15/19 11/07/20 History diphenhydramine HCl 25 mg capsule 25 mg PO QDAY PRN allergies 07/12/19 11/07/20 History (Benadryl) duloxetine 60 mg capsule,delayed 60 mg PO DAILY depression 07/13/19 11/08/20 History release acetaminophen 500 mg tablet 1,000 mg PO Q8H PRN Pain 1-10 Or 08/15/20 11/07/20 History Fever aspirin 81 mg chewable tablet 81 mg PO DAILY DVT Prophylaxis 08/15/20 11/08/20 History calcium 500 mg (as 1 tab PO BIDCM 08/30/20 11/08/20 Rx carbonate)-vitamin D3 5 mcg (200 unit) tablet esomeprazole magnesium 40 mg 40 mg PO 0600,1700 08/30/20 11/08/20 Rx capsule,delayed release ferrous sulfate 27 mg iron tablet 27 mg PO DAILY SUPPLEMENT 11/08/20 11/08/20 History meloxicam 15 mg tablet 15 mg PO DAILY PRN PRN Pain 1-10 11/08/20 11/08/20 History Or Fever gallcsja-ixma-msbq 8 mg-folic 400 1 tab PO DAILY SUPPLEMENT 11/08/20 11/08/20 History mcg-K 50 mcg-lutein 300 mcg tablet rosuvastatin 10 mg tablet 10 mg PO DAILY cholesterol #90 tabs 05/06/24 Unknown Rx hydrocodone-acetaminophen 5-325mg 1 tab PO Q6H PRN PRN Pain 3 days 05/08/25 Unknown Rx 5mg-325mg #10 TABLETS cyanocobalamin (vitamin B-12) 3,000 mcg PO DAILY 05/11/25 Unknown History 1,000 mcg tablet,extended release (Vitamin B-12 ER) gabapentin 100 mg capsule 100 mg PO BID 05/11/25 Unknown History Allergy/AdvReac Type Severity Reaction Status Date / Time cat dander Allergy Intermediate nasal Verified 05/11/25 18:56 congestion ciprofloxacin (From Cipro) Allergy Hives Verified 05/11/25 18:56 ciprofloxacin HCl (From Allergy Hives Verified 05/11/25 18:56 Cipro) clindamycin Allergy Rash Verified 05/11/25 18:56 doxycycline Allergy Other Verified 05/11/25 18:56 latex Allergy Hives Verified 05/11/25 18:56 nitrofurantoin (From Allergy Other Verified 05/11/25 18:56 Macrobid) Penicillins Allergy Shortness Verified 05/11/25 18:56 of breath vortioxetine (From AdvReac Intermediate GI upset Verified 05/11/25 18:56 Brintellix) methotrexate AdvReac Unknown unknown Verified 05/11/25 18:56 trazodone AdvReac Other Verified 05/11/25 18:56 Family History Father , Hodgkin's age 29 Hodgkin disease Mother Lung cancer Surgical History S/P ORIF (open reduction internal fixation) fracture Hx of total knee replacement Status post total hip replacement, bilateral Stented coronary artery (07/16/19) Social History Smoking Status: Former smoker quit date: 10/27/82 pack-years: 20 EXAM Physical Exam Const Vital Signs: 05/11/25 16:54 05/11/25 17:40 05/11/25 18:53 Temperature 98.1 F Temperature Source Oral Pulse Rate 92 95 Respiratory Rate 18 12 Respiratory Effort Normal Respiratory Pattern Normal Blood Pressure 110/64 109/72 Blood Pressure Mean 79 84 Pulse Ox 99 99 Oxygen Delivery Method Room Air Room Air 05/11/25 19:00 05/11/25 19:15 05/11/25 19:30 Temperature Temperature Source Pulse Rate 95 93 91 Respiratory Rate 13 18 20 H Respiratory Effort Respiratory Pattern Blood Pressure 102/58 L 119/90 H Blood Pressure Mean 70 99 Pulse Ox 99 Oxygen Delivery Method Room Air 05/11/25 19:45 05/11/25 20:00 Temperature Temperature Source Pulse Rate 94 93 Respiratory Rate 13 15 Respiratory Effort Respiratory Pattern Blood Pressure Blood Pressure Mean Pulse Ox 99 100 Oxygen Delivery Method [facility] Narrative Medical decision making narrative: HISTORY OF PRESENT ILLNESS: Chief complaint: weakness 79 F history of colitis, exacerbation, hyperlipidemia, CAD, hyponatremia, hypothyroidism, here with diffuse weakness, unable to care for self. Per patient she has been having more difficulty driving since breaking her dominant arm however she does not necessarily feel that she has to be admitted. Patient's cousin did have a horrible time with her because of excessive weakness has been going on for several weeks to months however was worsened acutely after she broke her arm. They states she needs to stay in the hospital because she cannot take care of herself. The patient is generally agreeable to admission and possible placement although she does not like it. She denies headache, chest pain, shortness of breath, cough, fever, abdominal pain, urinary complaints. Per the patient's family she survives on minimal food but does take a variety of supplements. REVIEW OF SYSTEMS: Pertinent positives: Diffuse weakness, right arm/shoulder pain Pertinent negatives: Chest pain, headache, vomiting, abdominal pain PHYSICAL EXAM: Nursing triage notes reviewed, Vital signs reviewed Constitutional: please see [facility] HENT: MMM Eyes: Pupils equal round and reactive to light, Extraocular muscles intact Neck: No stridor, no JVD, full neck ROM Lungs: Clear to auscultation, No wheezing or rales. No increased work of breathing, no conversational dyspnea, no accessory muscle use, no nasal flaring. No respiratory distress noted Heart: Regular rate and rhythm, No murmurs, No rubs and No gallops, 2+ distal pulses (radial, femoral, posterior tibial) in all extremities Abdomen: Soft, there is no tenderness, rigidity, rebound or guarding, no obvious peritoneal signs, no palpable pulsatile abdominal masses, no auscultated abdominal bruit : No CVAT Extremities: No edema Neuro: No new focal neurological deficits, cranial nerves II through XII intact, 5/5 strength in all present extremities. Intact sensation to light touch in all present extremities, 2+ reflexes bilateral patella tendons. Skin: No rash or lesions noted MEDICAL DECISION MAKING: Chief Complaint: please see [facility] External records reviewed: Reviewed imaging studies. Reviewed x-ray from 05/08/2025 which showed proximal humerus fracture. Factors affecting care: As per HPI Social determinants of health: Elderly History obtained from others: Patient's family Consults: Internal medicine (Dr. Mace) [facility] Narrative: The patient was initially hemodynamically stable, afebrile and nontoxic-appearing. Initial exam with bruising about the right upper extremity consistent with humerus fracture. Upper extremity otherwise warm well-perfused and neurovascularly intact. No focal neurodeficits. No focal cardiopulmonary abnormalities. Abdomen soft and nontender I considered the following differential diagnosis: ICH, UTI, electrolyte disturbance, dehydration, metabolic or infectious encephalopathy, arrhythmia, ACS I obtained a broad lab and imaging evaluation to further determine if the patient was suffering from a life-threatening etiology. Initially treat the patient with 500 cc normal saline bolus ALL IMAGES (IF OBTAINED) HAVE BEEN PERSONALLY REVIEWED AND INTERPRETED BY MYSELF. EKG with normal sinus rhythm rate of 92, left axis deviation, normal intervals, no STEMI CBC with leukocytosis, baseline anemia, no thrombocytopenia VBG without evidence of acidemia however there is low bicarb consistent with metabolic acidosis found on CMP Lactate elevated concerning for endorgan hypoperfusion likely secondary to dehydration secondary to poor mobility, and failure to thrive Lipase is wnl indicating no pancreatic inflammation. CT scan of the brain negative for ICH High-sensitivity troponin is negative, no evidence of myocardial ischemia Upon re-evaluation the patient remained hemodynamically stable.. She is given 500 cc bolus. Patient is appropriate for admission given she cannot ambulate, show signs of dehydration and/or hypoperfusion elevated lactate as well as metabolic acidosis. She would benefit from hospitalization. Discussed hospitalist who agreed to admit the patient. Discussed the patients elevated white blood cell count and elevated lactate in the setting of no SIRS criteria, fever or definitive source of infection with hospitalist. Given leukocytosis elevated lactate I alexa blood cultures but did not start empiric antibiotics as I cannot find a definitive source of infection at this time. Will await cultures as an inpatient. The patient and/or family, caregivers express understanding. The patient and/or family, caregivers agrees with the plan. Shared decision making: I will have a discussion with the patient and or visitors regarding risk/benefits of further testing or admission. They will be made aware of of the risk/benefits inherent in this decision they will be given the opportunity to voice understanding. Total critical care time today provided was at least 0 minutes. This excludes separately billable procedures. Critical care time (if documented) is secondary to the patient having high probability of clinically significant/life threatening deterioration in the patient's condition which required my urgent intervention. Impression: 1. Adult failure to thrive 2. Ambulatory dysfunction 3. Dehydration 4. Elevated lactic acid level Dispo: Admit to [facility] This note was generated with [employer] dictation software. It may contain incorrect words, spelling, and punctuation that were not noted in review of the chart prior to signing. Lab Data Labs: Laboratory Results - last 24 hr 05/11/25 05/11/25 05/11/25 17:31 18:12 19:44 WBC 11.5 H RBC 3.22 L Hgb 9.9 L Hct 30.3 L MCV 94.1 MCH 30.7 MCHC 32.7 RDW Std Deviation 48.0 H RDW Coeff of Papo 14.0 Plt Count 233 MPV 9.4 Immature Gran % (Auto) 0.300 Neut % (Auto) 83.7 H Lymph % (Auto) 7.0 L Bullock % (Auto) 8.4 Eos % (Auto) 0.3 Baso % (Auto) 0.3 Absolute Neuts (auto) 9.6 H Absolute Lymphs (auto) 0.81 L Nucleated RBC % 0 Sodium 129 L Potassium 3.9 Chloride 96 L Carbon Dioxide 15.6 L Anion Gap 17 H BUN 59 H Creatinine 1.22 H Estim Creat Clear Calc 40.78 L Est GFR (MDRD) Non-Af 45 L BUN/Creatinine Ratio 48.1 H Glucose 124 H Lactic Acid 3.2 H* Calcium 9.3 Total Bilirubin 0.52 AST 77 H ALT 32 Alkaline Phosphatase 86 Troponin T High Sens 26 H Total Protein 6.9 Albumin 3.9 Globulin 3.1 Albumin/Globulin Ratio 1.3 Lipase 29 Urine Color Straw Urine Clarity Cloudy Urine pH 5.0 Ur Specific [place] 1.020 Urine Protein 30 H Urine Glucose (UA) Normal Urine Ketones Negative Urine Occult Blood Negative Urine Nitrite Negative Urine Bilirubin Negative Urine Urobilinogen Normal Ur Leukocyte Esterase Negative Urine RBC 0 SEEN Urine WBC 0-5 SEEN Ur Squamous Epith Cells 0 SEEN Amorphous Sediment 1+ URATE Urine Bacteria 2+ Urine Mucus 0 SEEN ABG Data ABG results: ABG 05/11/25 19:57 Specimen Type JUDY Sample Site Not entered VBG pH 7.37 VBG pO2 138 H VBG HCO3 19 L VBG Total CO2 21 L VBG O2 Sat (Calc) 99 H VBG Base Excess -6 L POC Mix VBG pCO2 Pt Tmp 33.5 L O2 Delivery Device Not entered Radiography Diagnostic Testing: Clinical Impression(s) from Imaging Studies Brain CT 05/11/25 17:47 IMPRESSION: 1. No evidence of acute intracranial pathology. 2. Moderate-advanced volume loss and chronic small-vessel ischemic changes. Reading Location: [id number] Discharge Plan Triage Chief Complaint: Weakness ED Provider: Virgil Corrales Dx/Rx/DC Orders Primary Care Provider: Ayleen Tam
--- NOTE | 2025-05-11 17:47 | CT_ITS ---
PROCEDURE: BRAIN/HEAD WITHOUT CONTRAST 05/11/2025 REASON FOR EXAM: WEAKNESS TECHNIQUE: BRAIN/HEAD WITHOUT CONTRAST Coronal and Sagittal reconstruction series were provided. One or more dose reduction techniques were used (e.g., Automated exposure control, adjustment of the mA and/or kV according to patient size, use of iterative reconstruction technique. RADIATION DOSE SUMMARY: CTDlvol: 44.99 mGy DLP: 846.73 mGycm COMPARISON: None available. FINDINGS: No acute hemorrhage, extra-axial collection, mass effect or evidence of acute territorial infarct. Moderate-advanced generalized brain parenchymal volume loss, and chronic small- vessel ischemic changes throughout the supratentorial white matter. Small focus of probable old lacunar infarct in the right basal ganglia. Atherosclerotic vascular calcifications. Absent [place] ocular lenses. Intact skull base and calvarium. Clear paranasal sinuses and mastoid air cells. CT/Brain/Head without Contrast IMPRESSION: 1. No evidence of acute intracranial pathology. 2. Moderate-advanced volume loss and chronic small-vessel ischemic changes. Reading Location: [id number]
--- NOTE | 2025-05-11 17:48 | ED.RN ---
WHEN PT. WAS ASKED ABOUT HOW SHE WAS GETTING AROUND AT HOME. THE PATIENT STATED I NOÉ SIT ON IT, AND ROLL AROUND,SINCE I DON'T GET AROUND WELL IN REFERENCE TO HER ROLLATOR AT HOME.
[2025-05-11] MEDS: 0.9% Normal Saline (500mL Bag) 500 ML 1000 ML IV (18:08)
[2025-05-11 18:15] LABS: Hematocrit 30.3 % (37-47); Hemoglobin 9.9 g/dL (12.0-15.0); Immature Granulocytes Count 0.040 X10^3/uL (0.0-0.0); Mean Corp Hgb Conc 32.7 g/dL (32-36); Mean Corpuscular Volume 94.1 fL (81-99); Mean Platelet Vol. 9.4 fl (6.2-12.0); NRBC Flagged by Analyzer 0 % (0-5); Platelet Count 233 K/mm3 (150-450); RBC Distribution Width CV 14.0 % (11.6-14.6); RBC Distribution Width SD 48.0 fl (35.1-43.9); Red Blood Count 3.22 M/mm3 (4.2-5.4); White Blood Count 11.5 K/mm3 (4.4-11.0)
[2025-05-11 18:24] LABS: Mucous, Urine 0 SEEN /hpf (<or=2+); Red Blood Cells-Urine 0 SEEN /hpf (0-5); Squamous Epithelial Cells - UA 0 SEEN /hpf (5-10)
[2025-05-11 18:33] LABS: Color, Urine Straw (Yellow); Glucose, Dipstick Normal (Normal); Ketone-Dipstick Negative (Negative); Leukocyte Esterase-Dipstick Negative /ul (Negative); Nitrite-Dipstick Negative (Negative); Occult Blood-Urine Negative /ul (Negative); Protein-Dipstick 30 mg/dl (Negative); Specific Gravity, Urine 1.020 (1.002-1.030); Urine Bilirubin Dipstick Negative (Negative)
[2025-05-11 18:33] LABS: Lipase 29 U/L (13-75)
[2025-05-11 18:38] LABS: AST(SGOT) 77 U/L (<=31); Alanine Aminotransfer ALT/SGPT 32 U/L (<=34); Albumin, Serum 3.9 g/dL (3.4-4.8); Alkaline Phosphatase 86 U/L (35-104); Anion Gap 17 (5-15); BUN 59 mg/dL (4-19); BUN/Creat Ratio 48.1 RATIO (10-20); Calcium,Total 9.3 mg/dL (7.6-11.0); Carbon Dioxide 15.6 mmol/L (21.0-32.0); Chloride 96 mmol/L (98-108); Estimated Creatinine Clearance 40.78 ml/min (50-250); Globulin 3.1 g/dL (2.2-4.2); Glucose 124 mg/dL (70-99); Potassium 3.9 mmol/L (3.3-5.1)
[2025-05-11 18:49] LABS: Troponin T High Sensitivity 26 ng/L (<=14)
[2025-05-11 20:07] LABS: SITE Not entered; VBG BASE EXCESS -6 mmol/L (-1.0-3.5); VBG PO2 138 mmHg (25-40); VBG SO2 99 % (50-70); VBG TCO2 21 mmol/L (23-33)
--- NOTE | 2025-05-11 20:32 | HP.PCM.HOS_ITS ---
[facility] Date of Admission: 05/11/25 Date of Service: 05/11/25 Chief Complaint: Generalized Weakness with Inability to Care for Herself at Home. 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 6 hours prn who presents to [facility] ER complaining of generalized weakness with inability to care for self at home. Ms. Arriaga is very czkv-zf-gspyedu but she reports her acute symptoms began almost immediately after breaking her dominant arm causing her to have great difficulty mobilizing at home with a rolling walker she is using as a wheelchair. Her family has noted progressively worsening generalized weakness and they encouraged her to come to the hospital because she can no longer care for herself. They also noted she is incontinent of urine and is eating minimal food but does take a variety of dietary supplements. For her part, the patient is reluctantly agreeable to admission and possible ECF placement though she does not like it. There was no reported fever, chills, nausea, vomiting, abdominal pain, diarrhea, constipation, chest pain, shortness of breath, palpitations, heart racing, dysuria, hematuria, headache or rash. In the ER she was noted to have a highly elevated BUN of 59 mg/dL with a normal serum creatinine of 1.22 mg/dL suggestive of possible occult upper GI bleed and low hemoglobin of 9.9 g/dL present on admission with further laboratory evidence of Leukocytosis of 11.5K along with Lactic Acidosis of 3.2 mmol/L both present on admission in addition to mild Hyponatremia of 129 mmol/L in the setting of previously known SIADH with an elevated anion gap of 17 and a low carbon dioxide level of 15.6 mmol/L all culminating to cause Generalized Weakness with patient unable to care for self at home. She was then admitted to the general medical floor with telemetric monitoring for status expected to extend beyond 2 midnights. [facility] Medical History Atherosclerosis of coronary artery of [place] heart without angina pectoris Obstructive sleep apnea Abnormal nuclear stress test Home Medications ?Medication ?Instructions ?Recorded ?Last Taken ?Type levothyroxine 75 mcg tablet 75 mcg PO DAILY thyroid 05/10/25 History losartan 50 mg tablet 50 mg PO DAILY bp 03/15/19 0 05/10/25 History diphenhydramine HCl 25 mg capsule 25 mg PO QDAY PRN al lergies 07/12/19 11/07/20 History (Benadryl) duloxetine 60 mg capsule,delayed 60 mg PO DAILY depres jovani 07/13/19 05/10/25 History release acetaminophen 500 mg tablet 1,000 mg PO Q8H PRN Pain 1 -10 Or 08/15/20 05/10/25 History Fever aspirin 81 mg chewable tablet 81 mg PO DAILY DVT Proph ylaxis 08/15/20 05/10/25 History calcium 500 mg (as 1 tab PO BIDCM 08/30/2010/27 Rx carbonate)-vitamin D3 5 mcg (200 unit) tablet esomeprazole magnesium 40 mg 40 mg PO 0600,1700 05/10/25 Rx capsule,delayed release ferrous sulfate 27 mg iron tablet 27 mg PO DAILY SUPPL EMENT 11/08/20 05/10/25 History meloxicam 15 mg tablet 15 mg PO DAILY PRN PRN Pain 1-10 11/08/20 05/10/25 History Or Fever rosuvastatin 10 mg tablet 10 mg PO DAILY cholesterol # 90 tabs 05/06/24 05/10/25 Rx hydrocodone-acetaminophen 5-325mg 1 tab PO Q6H PRN PRN Pain 3 days 05/08/25 Unknown Rx 5mg-325mg #10 TABLETS tqxarid-vnnuislaemmgr-jzgmwlwz 250 1 tab PO Q6H PRN he adache 05/11/25 Unknown History mg-250 mg-65 mg tablet (Excedrin Extra Strength) cyanocobalamin (vitamin B-12) 3,000 mcg PO DAILY suppl ement 05/11/25 05/10/25 History 1,000 mcg tablet,extended release (Vitamin B-12 ER) gabapentin 100 mg capsule 100 mg PO BID 05/11/25 Unkno wn History loperamide 2 mg capsule 2 mg PO Q6H PRN diarrhea Unknown History (Anti-Diarrheal (loperamide)) multivitamin (Daily Multi-Vitamin 1 tab PO DAILY suppl ement 05/11/25 05/10/25 History tablet) Allergy/AdvReac Type Severity Reaction Status Date / Time cat dander Allergy Intermediate nasal Verified 05/11/25 18:56 congestion ciprofloxacin (From Cipro) Allergy Hives Verified 05/11/25 18:56 ciprofloxacin HCl (From Allergy Hives Verified 05/11/25 18:56 Cipro) clindamycin Allergy Rash Verified 05/11/25 18:56 doxycycline Allergy Other Verified 05/11/25 18:56 latex Allergy Hives Verified 05/11/25 18:56 nitrofurantoin (From Allergy Other Verified 05/11/25 18:56 Macrobid) Penicillins Allergy Shortness Verified 05/11/25 18:56 of breath vortioxetine (From AdvReac Intermediate GI upset Verified 05/11/25 18:56 Brintellix) methotrexate AdvReac Unknown unknown Verified 05/11/25 18:56 trazodone AdvReac Other Verified 05/11/25 18:56 Family History Father , Hodgkin's age 29 Hodgkin disease Mother Lung cancer Surgical History S/P ORIF (open reduction internal fixation) fracture Hx of total knee replacement Status post total hip replacement, bilateral Stented coronary artery (07/16/19) Social History Smoking Status: Former smoker quit date: 10/27/82 pack-years: 20 ROS ROS Narrative Review of Systems: Constitutional: Patient admits to generalized weakness but she denies fever or chills. Eyes: Patient denies changes in vision or discharge from eyes. ENT: Patient denies runny nose, sore throat or ear pain. Resp: Patient denies shortness of breath or cough. CV: Patient denies chest pain, palpitations, heart racing or lower extremity edema. GI: Patient denies abdominal pain, nausea, vomiting, diarrhea or constipation. : Patient admits to being incontinent of urine but she denies dysuria or hematuria. MSK: Patient admits to ongoing Right upper extremity pain after recent fracture in addition to progressively worsening generalized weakness as per HPI. Skin: Patient denies rash, abscess, wounds or jaundice. Psych: Patient denies symptoms of uncontrolled depression or anxiety. Neuro: Patient denies headache, paresthesias or focal neurologic deficits. Allergy: Patient lip swelling, tongue swelling or urticaria. Hematology: Patient denies easy bleeding or easy bruisability. Endocrinology: Patient denies polyuria, polydipsia, polyphagia or heat/cold intolerance. 14 point ROS otherwise negative except for positives noted above in HPI. Vital Signs Vital Signs Vital Signs: 05/11/25 16:54 05/11/25 17:40 05/11/25 18:53 Temperature 98.1 F Temperature Source Oral Pulse Rate 92 95 Respiratory Rate 18 12 Respiratory Effort Normal Respiratory Pattern Normal Blood Pressure 110/64 109/72 Blood Pressure Mean 79 84 Pulse Ox 99 99 Oxygen Delivery Method Room Air Room Air 05/11/25 19:00 05/11/25 19:15 05/11/25 19:30 Temperature Temperature Source Pulse Rate 95 93 91 Respiratory Rate 13 18 20 H Respiratory Effort Respiratory Pattern Blood Pressure 102/58 L 119/90 H Blood Pressure Mean 70 99 Pulse Ox 99 Oxygen Delivery Method Room Air 05/11/25 19:45 05/11/25 20:00 Temperature Temperature Source Pulse Rate 94 93 Respiratory Rate 13 15 Respiratory Effort Respiratory Pattern Blood Pressure Blood Pressure Mean Pulse Ox 99 100 Oxygen Delivery Method Weight Weight: 212 lb 11.937 oz Body Mass Index (BMI) 36.5 Physical Exam Const alert, oriented x3 and no apparent distress Constitutional Narrative: Obese and nontoxic in appearance. Patient is very cgor-wd-eprnxzt. General Appearance: cooperative HEENT normocephalic, head/scalp atraumatic, hearing grossly normal bilaterally and moist oral mucous membranes HEENT Narrative: Patient is very olcn-kp-udpbxsg. Eyes PERRL, EOMs intact bilaterally and conjunctivae normal Neck no lymphadenopathy, supple and no JVD Resp normal respiratory effort, no retractions, no use of accessory muscles and clear to auscultation bilaterally Cardio regular rate and regular rhythm GI normal to inspection, nondistended, normoactive bowel sounds, soft to palpation, non-tender and non-distended GI Narrative: Obese. Extremity normal to inspection, full ROM and no clubbing, cyanosis or edema Skin Skin Narrative: Patient has no evidence of rash, abscess, wounds or jaundice. Neuro oriented x3, CN's II-XII intact bilaterally, moves all extremities and no focal motor deficits Sensorium / Orientation: awake, alert, oriented to person, oriented to place and oriented to time Speech: speech normal Psych affect normal Results Medical Records Data Attestation: I reviewed the patient's medical records Lab / Micro Data Attestation: I reviewed the patient's lab results. 05/11/25 17:31 05/11/25 17:31 Labs: Laboratory Results - last 24 hr 05/11/25 17:31: WBC 11.5 H, RBC 3.22 L, Hgb 9.9 L, Hct 30.3 L, MCV 94.1, MCH 30.7, MCHC 32.7, RDW Std Deviation 48.0 H, RDW Coeff of Papo 14.0, Plt Count 233, MPV 9.4, Immature Gran % (Auto) 0.300, Neut % (Auto) 83.7 H, Lymph % (Auto) 7.0 L, [place] % (Auto) 8.4, Eos % (Auto) 0.3, Baso % (Auto) 0.3, Absolute Neuts (auto) 9.6 H, Absolute Lymphs (auto) 0.81 L, Nucleated RBC % 0, Sodium 129 L, Potassium 3.9, Chloride 96 L, Carbon Dioxide 15.6 L, Anion Gap 17 H, BUN 59 H, Creatinine 1.22 H, Estim Creat Clear Calc 40.78 L, Est GFR (MDRD) Non-Af 45 L, B UN/Creatinine Ratio 48.1 H, Glucose 124 H, Calcium 9.3, Total Bilirubin 0.52, A ST 77 H, ALT 32, Alkaline Phosphatase 86, Troponin T High Sens 26 H, Total Protein 6.9, Albumin 3.9, Globulin 3.1, Albumin/Globulin Ratio 1.3, Lipase 29 05/11/25 18:12: Urine Color Straw, Urine Clarity Cloudy, Urine pH 5.0, Ur Specific [place] 1.020, Urine Protein 30 H, Urine Glucose (UA) Normal, Urine Ketones Negative, Urine Occult Blood Negative, Urine Nitrite Negative, Urine Bilirubin Negative, Urine Urobilinogen Normal, Ur Leukocyte Esterase Negative, Urine RBC 0 SEEN, Urine WBC 0-5 SEEN, Ur Squamous Epith Cells 0 SEEN, Amorphous Sediment 1+ URATE, Urine Bacteria 2+, Urine Mucus 0 SEEN 05/11/25 19:44: Lactic Acid 3.2 H* ABG Data ABG results: ABG 05/11/25 19:57 Specimen Type JUDY Sample Site Not entered VBG pH 7.37 VBG pO2 138 H VBG HCO3 19 L VBG Total CO2 21 L VBG O2 Sat (Calc) 99 H VBG Base Excess -6 L POC Mix VBG pCO2 Pt Tmp 33.5 L O2 Delivery Device Not entered Imaging Radiology Impression Brain CT 05/11/25 17:47 IMPRESSION: 1. No evidence of acute intracranial pathology. 2. Moderate-advanced volume loss and chronic small-vessel ischemic changes. Reading Location: [id number] Imaging Services [address] [place] [id number] Abdomen/Pelvis W IV Cont ONLY MR#: [id number] Acct: [id number] Name: BRADLY ARRIAGA Rep #: [id number] : 1945 F 79 From: Evert Lacy MD PCP: Dr. Ayleen Tam MD Status: ADM IN Study: Abdomen/Pelvis W IV Cont ONLY Date of Exam: 05/11/25 Exam# [id number] Ordering Dr: Ifeanyi Shaikh DO PROCEDURE: ABDOMEN/PELVIS W IV CONT ONLY 05/11/2025 REASON FOR EXAM: HIGHLY ELEVATED BUN/CREAT RATIO. ? BLEED. TECHNIQUE: ABDOMEN/PELVIS W IV CONT ONLY Coronal and Sagittal reconstruction series were provided. CONTRAST: Isovue 370 VOLUME: 94 mL One or more dose reduction techniques were used (e.g., Automated exposure control, adjustment of the mA and/or kV according to patient size, use of iterative reconstruction technique. RADIATION DOSE SUMMARY: CTDlvol: 33 mGy DLP: 1155 mGycm COMPARISON: 11/08/2020 FINDINGS: Under aerated lung bases. Normal heart size. Diffuse hepatic steatosis. Subcentimeter liver hypodensity favoring benign etiology. Status post cholecystectomy. Unremarkable pancreas, spleen, adrenal glands, kidneys. No hydronephrosis. Normal bladder. Unremarkable uterus and ovaries. No retroperitoneal or pelvic adenopathy. No free air. Nonobstructed bowel. No signs of appendicitis. Diverticulosis. No acute large bowel findings. Status post bilateral THR. Lumbar spine scoliosis and degeneration. Possible cellulitis, ventral abdominal wall, series 2, image 55. CT/Abdomen/Pelvis W IV Cont ONLY IMPRESSION: Possible ventral abdominal wall cellulitis. Advise correlation. Reading Location: [place] [address] CC: Dr. Ifeanyi Shaikh DO; Dr. Ayleen Tam MD ~ Card Runner: Signed Assessment & Plan Assessment/Plan (1) Elevated BUN: (2) Leukocytosis: QUALIFIERS: Leukocytosis type: unspecified Qualified Code(s): D 72.829 - Elevated white blood cell count, unspecified (3) Lactic acidosis: (4) Hyponatremia: (5) SIADH (syndrome of inappropriate ADH production): (6) Generalized weakness: (7) Obesity (BMI 30-39.9): (8) Sleep apnea: QUALIFIERS: Sleep apnea type: unspecified type Qualified Code(s): G47.30 - Sleep apnea, unspecified PLAN: Plan 1. Highly elevated BUN of 59 mg/dL with a normal serum creatinine of 1.22 mg/dL suggestive of possible occult upper GI bleed and low hemoglobin of 9.9 g/dL and BUN/creatinine ratio of 48.1 present on admission - Admit to general medical floor telemetry monitoring. Hemoccult stools and check iron studies, B12 and folate levels. Type & screen blood transfuse for hemoglobin less than 7 g/dL. Check CT scan of abdomen pelvis with IV contrast to evaluate for possible underlying bleeding. 2. Leukocytosis of 11.5K along with Lactic Acidosis of 3.2 mmol/L both present on admission complicating #1 - Patient has no obvious infection with negative urinalysis noted on admission. Treat conservatively with volume resuscitation and recheck CBC and lactic acid levels to follow trend. 3. Hyponatremia of 129 mmol/L in the setting of previously known SIADH with an elevated anion gap of 17 and a low carbon dioxide level of 15.6 mmol/L compounding #1 & #2 - Give NS IV fluid at 70 cc/hour x 1 L. Check serum and urine osmolality. Urine specific gravity 1.020 notably in normal range. A review of patient's medications does not show any obvious culprit agent to cause this type of metabolic disturbance. 4. Generalized Weakness with patient unable to care for self at home after recent fall with subsequent RUE fracture adding to the medical complexity of #1 - #3 - PT/OT and Case Management consult treat on rounds in a.m. for further recommendations regarding possible ECF placement with subacute rehabilitation, with help appreciated in advance. 5. Obesity (class II); with BMI of 36.5 this admission plus HELENA; on CPAP adding to the burden of disease outlined from #1 - #4 - Weight loss will be recommended. Check TSH. Resume nocturnal CPAP as previous. This complicates her case and may hamper recovery. 6. Recent scalding with hot coffee on abdomen with CT scan concerning for possible cellulitis - Patient has no signs of acute infection at this time so antibiotics were not initiated. 7. Essential hypertension; on losartan - Maintain present therapy. 8. Hyperlipidemia; on rosuvastatin - Hold statin in case of myotoxicity contributing to #4 and monitor for improvement. Check lipid profile. 9. Hypothyroidism; on levothyroxine - Continue levothyroxine and check TSH. 10. Former tobacco abuse - Noted. 11. CAD; s/p proximal-diagonal stent (2019) on BASA daily - Hold BASA for now in light of #1 with possible PUD/GIB. 12. Neuropathy; on gabapentin twice daily - Current therapy to be resumed as previous. 13. MORENO; on ferrous sulfate - Continue ferrous sulfate and check iron studies as outlined in #1. 14. History of MRSA - Noted. 15. Depression with anxiety; on duloxetine - Maintain present treatment. 16. History of pancolitis - Noted with CT pending for #1. 17. GERD; on esomeprazole twice daily - Change PPI to IV until bleeding definitively ruled out. 18. RA - Stable with no evidence of flare at this time. 19. OA; s/p Left TKR (2016) and bilateral THR's on meloxicam and recent RUE fracture; on prn oxycodone-acetaminophen q. 6 hours prn - Give acetaminophen as needed for vmzy-pf-znypsjem (level 1-5/10) pain or fever. Give oxycodone- acetaminophen as needed for severe (level 6-10/10) pain. 20. DVT/GI prophylaxis - SCD's only in light of #1 creating contraindication to chemoprophylaxis. Pantoprazole 40 mg IV twice daily. Total time: Approximately (but not less than) 75 minutes. Charges/Coding Visit Charges Inpatient E&M: 22320 Init Hosp L3
--- NOTE | 2025-05-11 21:25 | CT_ITS ---
PROCEDURE: ABDOMEN/PELVIS W IV CONT ONLY 05/11/2025 REASON FOR EXAM: HIGHLY ELEVATED BUN/CREAT RATIO. ? BLEED. TECHNIQUE: ABDOMEN/PELVIS W IV CONT ONLY Coronal and Sagittal reconstruction series were provided. CONTRAST: Isovue 370 VOLUME: 94 mL One or more dose reduction techniques were used (e.g., Automated exposure control, adjustment of the mA and/or kV according to patient size, use of iterative reconstruction technique. RADIATION DOSE SUMMARY: CTDlvol: 33 mGy DLP: 1155 mGycm COMPARISON: 11/08/2020 FINDINGS: Under aerated lung bases. Normal heart size. Diffuse hepatic steatosis. Subcentimeter liver hypodensity favoring benign etiology. Status post cholecystectomy. Unremarkable pancreas, spleen, adrenal glands, kidneys. No hydronephrosis. Normal bladder. Unremarkable uterus and ovaries. No retroperitoneal or pelvic adenopathy. No free air. Nonobstructed bowel. No signs of appendicitis. Diverticulosis. No acute large bowel findings. Status post bilateral THR. Lumbar spine scoliosis and degeneration. Possible cellulitis, ventral abdominal wall, series 2, image 55. CT/Abdomen/Pelvis W IV Cont ONLY IMPRESSION: Possible ventral abdominal wall cellulitis. Advise correlation. Reading Location: [place] [address]
[2025-05-11 21:47] LABS: Ferritin 135 ng/mL (22-378); Iron Binding Capacity,Total 289 ug/dL (250-450)
[2025-05-11 22:31] LABS: Iron 34 ug/dL (50-170); Iron Binding Capacity,Unsat 255 ug/dL (228-428); Magnesium 2.3 mg/dL (1.5-2.2)
[2025-05-11 23:02] LABS: Osmolality, Urine 715 mOsm/KG
[2025-05-11 23:25] LABS: Reflex Lactate? Y
--- OUTSIDE RECORDS SUMMARY | 2025-05-11 23:27 | XMS RPT_ITS | CCD ---
Author Organization [facility]ini[facility] Care Team Providers Care Web Analytics Developer Name Role Phone Daisy Jha DC Unavailable Berta Isaac Unavailable Unavailable Daisy Jha DC Unavailable Deb Tam MD Primary Care Provider Coy Chan MD Unavailable Deb Tam MD Primary Care Provider Coy Chan MD Unavailable Deb Tam MD Primary Care Provider Coy Chan MD Unavailable Coy Chan MD Unavailable Deb Tam MD Primary Care Provider Kirkpatrcik WRAPPER STITCHER.INSERTING OPERATOR, Jaja Unavailable Divya WRAPPER STITCHER.REHABILITATION AIDE/SCHEDULER, Olga Unavailable Divya WRAPPER STITCHER.REHABILITATION AIDE/SCHEDULER, Olga Unavailable DIVYA OLGA Referring Unavailable TALAMPAS, DEB D Primary Care Unavailable DIVYA OLGA Attending Unavailable TALAMPAS, DEB D Primary Care Unavailable DIVYA OLGA Attending Unavailable TALAMPAS, DEB D Primary Care Unavailable Kirkpatrick WRAPPER STITCHER.INSERTING OPERATOR, Jaja Unavailable Dr. Deb Tam MD Primary Care Provider Dr. Kev Nelson DO Emergency Provider [phone] Kev Nelsno Attending Unavailable Anel, Deb Manasa Primary Care Unavailable Ifeanyi Shaikh Referring Unavailable Deb Tam Primary Care Unavailable de Ifeanyi Paula Admitting Unavailable Ifeanyi Shaikh Attending Unavailable Antoni DO, Dr. Virgil Emergency Provider Shaikh DO, Dr. Suggs Admit Provider Unavail able Dr. Ifeanyi Shaikh DO Attending Provider Mahoganyv ailable Shaikh DO, Dr. Suggs Referring Provider Unagris ailable Allergies Allergy Classification Reported Allergen(s) Allergy Type Date of Onset Reaction(s) Facility Cats (1 source) Cat Animal Allergy (Dander) 09-02-20 12 Other: See Comments [facility] Doxycycline (1 source) Doxycycline Drug Allergy 03-15-20 19 Other: See Comments [facility] Latex (1 source) Latex Substance Allergy 02-29-20 08 Rash, Hives [facility] Lincosamides (antibiotic) (1 source) Clindamycin Drug Allergy 06-21-20 13 Rash [facility] Methotrexate (1 source) Methotrexate Drug Allergy 04-11-20 15 Other: See Comments [facility] NITROFURANTOIN, MACROCRYSTALS / Nitrofurantoin, Monohydrate (1 source) NITROFURANTOIN, MACROCRYSTALS / Nitrofurantoin, Monohydrate Drug Allergy 12-10-19 18 Unknown [facility] Penicillins (antibiotic) (1 source) Penicillins Drug Allergy 09-02-20 05 Shortness of Breath [facility] Quinolones (antibiotic) (1 source) Ciprofloxacin Drug Allergy 03-27-20 12 Other: See Comments, [facility] Serotonin Reuptake Inhibitors (SSRIs) (1 source) traZODone Drug Allergy 02-20-20 13 Intolerance [facility] Work Phone: vortioxetine (1 source) vortioxetine Drug Allergy 04-03-20 16 GI Upset [facility] Work Phone: (20 sources) ciprofloxacin drug allergy 03-03-20 17 [facility] Work Phone: (11 sources) ciprofloxacin drug allergy [facility] Work Phone: (20 sources) clindamycin; Translations: [CLINDAMYCIN] drug allergy 06-21-20 13 Rash [facility] Work Phone: (12 sources) natural latex rubber; Translations: [LATEX] allergy to substance 02-29-20 08 [facility] Work Phone: (11 sources) penicillin drug allergy [facility] Work Phone: (11 sources) traZODone drug allergy 03-03-20 17 Rash [facility] Work Phone: (20 sources) traZODone; Translations: [TRAZODONE] food allergy 02-20-20 13 Intolerance [facility] Work Phone: Comment on above: [place] FEELING (11 sources) ACETYL SALICYLIC ACID drug allergy 03-03-20 17 [facility] Work Phone: (20 sources) Cat; Translations: [CATS] Allergy to substance 09-02-20 12 Other: See Comments [facility] (20 sources) Ciprofloxacin; Translations: [CIPROFLOXACIN] Drug Allergy 03-27-20 12 Other: See Comments, [facility] (20 sources) Latex Propensity to adverse reactions 02-29-20 08 Rash, [facility] Work Phone: (20 sources) Methotrexate; Translations: [METHOTREXATE] Drug Allergy 04-11-20 15 Other: See Comments [facility] Work Phone: (20 sources) NITROFURANTOIN, MACROCRYSTALS / Nitrofurantoin, Monohydrate; Translations: [NITROFURANTOIN MONOHYD/M-CRYST] Drug Allergy 12-10-19 18 Unknown [facility] (4 sources) Penicillins; Translations: [PENICILLINS] Propensity to adverse reactions 09-02-20 05 Shortness of Breath [facility] Work Phone: (20 sources) vortioxetine; Translations: [VORTIOXETINE] Drug Allergy 04-03-20 16 GI Upset [facility] Work Phone: (19 sources) Penicillins Propensity to adverse reactions 09-02-20 05 Shortness of Breath [facility] Work Phone: (20 sources) Doxycycline; Translations: [DOXYCYCLINE] Drug Allergy 03-15-20 19 Other: See Comments [facility] Work Phone: (20 sources) Cat Dander; Translations: [CAT DANDER] Drug Allergy 07-13-20 19 Other: See Comments [facility] Work Phone: (5 sources) Penicillins Propensity to adverse reactions 09-02-20 05 Shortness of Breath [facility] (3 sources) Ciprofloxacin; Translations: [ciprofloxacin HCl] Drug Allergy 11-08-19 21 Hives [facility] (2 sources) Nitrofurantoin Drug Allergy 11-08-19 Other [facility] (2 sources) Penicillins Allergy to substance 11-08-19 21 Shortness of breath [facility] (1 source) Ciprofloxacin Drug Allergy 05-11-20 [facility] (1 source) Doxycycline Drug Allergy 05-11-20 [facility] (1 source) Latex Drug allergy (disorder) 05-11-20 [facility] (1 source) Methotrexate Drug Allergy 05-11-20 [facility] (1 source) Nitrofurantoin Drug Allergy 05-11-20 [facility] (1 source) Penicillins Drug allergy (disorder) 05-11-20 [facility] (1 source) vortioxetine Drug Allergy 05-11-20 [facility] Rep[facility] Medications Current Medications Medication Drug Class(es) Dates Sig (Normalized) Sig (Original) acetaminophen 500 mg oral tablet (20 sources) Start: 08-15-2020 take 1-10 tablets by mouth every eight hours as needed for pain Acetaminophen 500 MG tablet Active 1000 mg PO Q8H as needed for Pain 1-10 Or Fever August 15, 2020 3:28pm Start: 08-05-2020 End: 08-15-2020 take 2 tablets by mouth every eight hours Acetaminophen 500 MG tablet Discontinued 1000 mg PO EVERY 8 HOURS 14 0 August 05, 2020 12:00am August 18, 2020 12:00am August 15, 2020 3:28pm Start: 07-12-2019 End: 08-05-2020 take 1 tablet by mouth once daily as needed for pain Acetaminophen 500 mg tablet Discontinued 500 mg PO .COMPLEX as needed for Pain July 12, 2019 12:00am August 05, 2020 9:54am 500 mg PO daily PRN; Start: 09-06-2016 End: 09-13-2016 take 2 tablets by mouth every six hours Acetaminophen (Tylenol) 325 MG tablet Discontinued 650 mg PO EVERY 6 HOURS 30 0 September 06, 2016 1:00am September 13, 2016 2:54pm Start: 06-03-2016 End: 09-06-2016 take 2 tablets by mouth every four hours as needed for pain Acetaminophen (Tylenol) 325 MG tablet Discontinued 650 mg PO EVERY 4 HOURS NEEDED as needed for Pain June 03, 2016 12:00am September 06, 2016 8:27am take 1 tablet by jagruti every four hours as needed TYLENOL EXTRA STRENGTH 500 MG TABS po q 4 hrs prn ACETAMINOPHEN [id number] Ramila Cowan LPN Comment on above: Take 500 mg by mouth once daily as needed. acetaminophen 325 mg / HYDROcodone bitartrate 5 mg oral tablet (20 sources) Opioid Agonist Start: 05-08-2025 take 1 tablet by mouth every six hours as needed for pain Hydrocodone-Acetam inophen 5-325 mg tablet Active 1 {tbl} PO EVERY 6 HOURS NEEDED as needed for Pain 10 3 0 May 08, 2025 Fracture of proximal end of humerus Start: 03-15-2019 End: 03-31-2020 Hydrocodone-Acetaminophen 1 EACH tablet Discontinued 1 NMA PO EVERY 6 HOURS NEEDED as needed for Pain 20 0 March 15, 2019 9:47pm March 31, 2020 9:35am Arthritis of hip Unilateral primary osteoarthritis, unspecified hip Start: 01-05-2014 End: 10-19-2015 Hydrocodone-Acetaminophen 1 TABLET tablet Discontinued 1 - 2 {tbl} PO EVERY 6 HOURS NEEDED as needed for Mild to moderate pain 20 0 January 18, 2014 12:00am October 19, 2015 3:34pm Start: 07-23-2013 End: 03-03-2017 take 2 tablets by mouth every four hours as needed VICODIN 5-500 MG TABS 2 tabs po q 4 hrs prn HYDROCODONE-ACETAMINOPHEN [id number] Berta Isaac Start: 07-23-2013 take 2 tablets by mo [facility] every four hours as needed VICODIN 5-500 MG TABS 2 tabs po q 4 hrs prn HYDROCODONE-ACETAMINOPHEN [id number] Ramila Cowan LPN aspirin 81 mg chewable tablet (20 sources) Platelet Aggregation Inhibitor, Nonsteroidal Anti-inflammatory Drug Start: 08-15-2020 take 1 tablet by mouth once daily Aspirin 81 MG tablet,chewable Active 81 mg PO DAILY August 15, 2020 3:28pm DVT Prophylaxis Start: 08-05-2020 End: 08-15-2020 take 1 tablet by mouth twice daily at mealtime Aspirin 81 MG tablet,chewable Discontinued 81 mg PO TWICE DAILY WITH MEALS 0 August 05, 2020 12:00am August 15, 2020 3:28pm Take 81 mg aspirin twice daily for 4 weeks postoperatively for DVT prophylaxis Start: 07-13-2019 End: 07-13-2024 take 1 tablet by mouth once daily Aspirin 81 MG tablet,delayed release (DR/EC) Discontinued 81 mg PO DAILY July 19, 2020 1:54pm August 05, 2020 9:54am supplement Comment on above: DAILY ASPIRIN/ACETAMINOPHEN/CAFFEI NE (EXCEDRIN EXTRA STRENGTH ORAL) (20 sources) ASPIRIN/ACETAMIN OPHEN/CAFFEINE (EXCEDRIN EXTRA STRENGTH ORAL) Take by mouth. Active ASPIRIN/ACETAMIN OPHEN/CAFFEINE (EXCEDRIN EXTRA STRENGTH ORAL) Take by mouth. 0 Active Comment on above: Take by mouth. atropine sulfate 0.025 mg / diphenoxylate hydrochloride 2.5 mg oral tablet (20 sources) Anticholinergic, Cholinergic Muscarinic Antagonist, Antidiarrheal Start: 11-06-19 21 take 1 tablet by mouth every six hours as needed for diarrhea and diarrhea diphenoxylate-atro pine (LOMOTIL) 2.5-0.025 mg per tablet Indications: Diarrhea, unspecified type Take 1 tablet by mouth four times daily as needed for Diarrhea for up to 5 days. 20 tablet 11/06/2020 Active Comment on above: Take 1 tablet by jagruti four times daily as needed for Diarrhea for up to 5 days. calcium carbonate 1250 mg / cholecalciferol 200 unt oral tablet (7 sources) Vitamin D Start: 08-30-20 20 Calcium Carbonate-Vitamin D3 1 TABLET tablet Active 1 {tbl} PO TWICE DAILY WITH MEALS 0 August 30, 2020 1:00am Start: 07-19-2020 End: 09-01-2020 Calcium Carbonate-Vitamin D3 1 EACH tablet Discontinued 2 NMA PO DAILY July 19, 2020 12:00am September 01, 2020 12:35pm supplement take 1 tablet by jagruti once daily CALCIUM-VITAMIN D3 500-400 MG-UNIT TABS One tablet by mouth daily CALCIUM CARB-CHOLECALCIFEROL [id number] Ramila Cowan LPN calcium citrate 1190 mg / cholecalciferol 0.005 mg oral tablet (20 sources) Vitamin D Start: 11-23-2019 take 1 tablet by mouth once daily Calcium Citrate-Vitamin D3 250 mg calcium- 200 unit tab Take 1 tablet by mouth once daily. 30 tablet 5 11/23/2019 Active Comment on above: Take 1 tablet by jagruti once daily. COMPOUNDED PRESCRIPTION (20 sources) Start: 01-11-2019 COMPOUNDED PRESCRIPTION BLOOD PRESSURE CUFF FOR HOME USE. DX: Hypertension I10 1 Device 01/11/2019 Active Start: 01-11-2019 COMPOUNDED PRE SCRIPTION BLOOD PRESSURE CUFF FOR HOME USE. DX: Hypertension I10 1 Device 0 01/11/2019 Active Comment on above: BLOOD PRESSURE CUFF FOR HOME USE. DX: Hypertension I10 Diaper,Brief, Adult,Disposable ([employer] CLASSIC ADULT BRIEFS X-L) (20 sources) Start: 020 Diaper,Brief, Adult,Disposable ([employer] ADULT BRIEFS X-L) Pull ups with liner pads--change as needed at least 2 daily. N39.46, N95.2 60 Each 11 05/04/2020 Active Comment on above: Pull ups with liner pads--change as needed at least 2 daily. N39.46, N95.2 diphenhydrAMINE hydrochloride 25 mg oral capsule (20 sources) Histamine-1 Receptor Antagonist Start: 019 take 1 capsule by mouth once daily as needed Diphenhydramine Hcl (Benadryl) 25 mg capsule Active 25 mg PO daily as needed for allergies July 12, 2019 12:00am take 2 tablets by mo ut once daily as needed BENADRYL 25 MG TABS 50mg po q day prn DIPHENHYDRAMINE HCL [id number] Ramila Cowan LPN take 2 tablets by mo uth once daily as needed BENADRYL 25 MG TABS 50mg po q day prn DIPHENHYDRAMINE HCL [id number] Ramila Cowan LPN Comment on above: Take 25 mg by mouth once daily as needed. ergocalciferol, vitamin D2, (VITAMIN D2 ORAL) (8 sources) take 1 capsule by mouth once daily ergocalciferol, vitamin D2, (VITAMIN D2 ORAL) Take 1 capsule by mouth once daily. Active esomeprazole 40 mg delayed release oral capsule (20 sources) Proton Pump Inhibitor Start: take 1 capsule by mouth twice daily [...] Start: 06-05-2022 take 1 capsule by mo ut twice daily before mealtime esomeprazole (NEXIUM) 40 mg capsule Take 1 capsule by mouth twice daily before meals. 180 capsule 3 06/05/2022 Active Start: 03-15-2019 End: 05-21-2022 Esomeprazole Magnesium 40 MG capsule Active 40 mg PO 0600,1700 0 August 30, 2020 1:00am Start: 09-03-2016 End: 09-06-2016 Esomeprazole Magnesium (Nexi um) 20 MG capsule Discontinued 20 mg PO September 03, 2016 1:00am September 06, 2016 8:28am Comment on above: Take 1 capsule by mo [facility] twice daily before meals. ferrous gluconate 240 mg oral tablet (20 sources) Start: 03-29-2025 take 1 tablet by mouth twice daily at mealtime Ferrous Gluconate 240 mg (27 mg iron) tablet Take 1 tablet by mouth two times a day with meals. 03/29/2025 Active Start: 08-05-2020 End: 08-15-2020 take 1 tablet by mouth once daily Ferrous Gluconate 324 MG tablet Discontinued 324 mg PO DAILY@0800 0 August 05, 2020 12:00am August 15, 2020 3:28pm Start: 07-12-2019 End: 08-05-2020 take 1 tablet by mouth once daily Ferrous Gluconate 324 mg (38 mg iron) tablet Discontinued 28 mg PO DAILY July 12, 2019 12:00am August 05, 2020 9:54am supplement Start: 06-25-2016 End: 03-29-2025 Ferrous Gluconate (FERGON) 3 24 mg (38 mg iron) tablet Actually taking 41 mg tablet 06/25/2016 03/29/2025 Discontinued Comment on above: Actually taking 41 m g tablet ferrous sulfate 134 mg oral tablet (4 sources) Start: 11-08-2020 take 1 tablet by mouth once daily Ferrous Sulfate 27 MG tablet Active 27 mg PO DAILY November 08, 2020 1:00am SUPPLEMENT Start: 08-15-2016 End: 09-13-2016 take 1 tablet by mouth once daily Ferrous Sulfate 325 MG tablet Discontinued 325 mg PO DAILY@0800 August 15, 2016 12:00am September 13, 2016 2:54pm Food Supplement, Lactose-Free (PROTEIN NUTRITIONAL SHAKE) liqd (4 sources) Food Supplement, Lactose-Free (PROTEIN NUTRITIONAL SHAKE) liqd Take 8 ounces by mouth once daily. Active gabapentin 100 mg oral capsule (5 sources) Anti-epileptic Agent Start: End: take 1 capsule by mouth twice daily Gabapentin 100 mg capsule Active 100 mg PO TWICE A DAY May 11, 2025 12:00am ketoconazole 20 mg/ml medicated shampoo (20 sources) [...] area once daily as needed. For scalp. losartan potassium 50 mg oral tablet (20 sources) Angiotensin 2 Receptor Dave Start: 4 End: 5 take 1 tablet by mouth once daily losartan (COZAAR) 50 mg tablet Indications: Essential hypertension Take 1 tablet by mouth once daily. 90 tablet 1 05/10/2025 Active Start: 03-15-2019 End: 05-08-2023 take 1 tablet by mouth once daily losartan (COZAAR) 50 mg tablet Indications: Essential hypertension Take 1 tablet by mouth once daily. 90 tablet 1 05/08/2023 Active Comment on above: Take 1 tablet by jagruti th once daily. take 1 tablet by jagruti th once daily meloxicam 15 mg oral tablet (20 sources) Nonsteroidal Anti-inflammatory Drug Start: 04-05-2024 End: 04-12-2025 take 1 tablet by mouth once daily as needed meloxicam (MOBIC) 15 mg tablet Take 1 tablet by mouth once daily as needed. 90 tablet 3 04/13/2025 Active Start: 11-08-2020 End: 04-02-2024 take 1 tablet by mouth once daily as needed meloxicam (MOBIC) 15 mg tablet Take 1 tablet by mouth once daily as needed. 90 tablet 3 01/16/2023 04/02/2024 Discontinued Start: 03-15-2019 End: 08-05-2020 take 1 tablet by mouth once daily Meloxicam 15 MG tablet Discontinued 15 mg PO DAILY March 15, 2019 12:00am August 05, 2020 9:55am pain Start: 06-03-2016 End: 09-06-2016 take 1 tablet by mouth once daily Meloxicam 15 MG tablet Discontinued 15 mg PO DAILY June 03, 2016 12:00am September 06, 2016 8:27am Start: 10-16-2015 End: 10-19-2015 take 1 tablet by mouth once daily Meloxicam 15 MG tablet Discontinued 15 mg PO DAILY October 16, 2015 1:00am October 19, 2015 3:33pm Start: 12-23-2013 End: 01-05-2014 take 1 tablet by mouth once daily Meloxicam 15 MG tablet Discontinued 15 mg PO DAILY December 23, 2013 1:00am January 05, 2014 12:29pm Comment on above: Take 1 tablet by jagruti th once daily as needed. Miscellaneous Medical Supply misc (20 sources) Start: 0 Miscellaneous Medical Supply misc Boost Max 1 can twice daily 30 Each 11/26/2019 Active Comment on above: Boost Max 1 can twic e daily Zzynbtzb-Gsr-Sywb-Fa-V it K-Lut 1 EACH tablet (2 sources) Start: take 1 tablet by mouth once daily Yjwqihoa-Iuz-Yywx-Fa- Vit K-Lut 1 EACH tablet Active 1 {tbl} PO DAILY November 08, 2020 1:00am SUPPLEMENT nystatin 100 unt/mg topical powder (19 sources) Polyene Antifungal Start: nystatin (MYCOSTATIN) powder Apply 1 application to [...] above: Boost Max, 2 cartons per day silver sulfADIAZINE 10 mg/ml topical cream (2 [...] 27-0.4 mg tablet (20 sources) Start: 09-06-20 15 take 1 tablet by mouth once daily therapeutic multivitamin w/ iron (THERAGRAN-M) 27-0.4 mg tablet Take 1 tablet by mouth once daily. 0 09/06/2015 Active Comment on above: Take 1 tablet by [facility] once daily. levothyroxine sodium 0.075 mg oral tablet (20 sources) l-Thyroxine Start: 12-23-19 14 End: 02-22-20 25 take 1 tablet by mouth once daily levothyroxine (SYNTHROID) 75 mcg tablet Indications: Acquired hypothyroidism Take 1 tablet by mouth once daily. 90 tablet 3 02/21/2025 Active Comment on above: Take 1 tablet by jagruti once daily. Underpads 30 X 30 pads (20 sources) Start: 05-04-20 20 Underpads 30 X 30 pads Change daily and as needed. N39.46, N95.2 30 Each 11 05/04/2020 Active Comment on above: Change daily and as needed. N39.46, N95.2 vitamin b12 1 mg extended release oral tablet (20 sources) Vitamin B12 Start: 05-11-20 take 3 tablets by mouth once daily Cyanocobalamin (Vitamin B-12) (Vitamin B-12) 1,000 mcg tablet extended release Active 3000 ug PO DAILY May 11, 2025 12:00am Start: 07-19-2020 End: 08-05-2020 take 1 capsule by mouth once daily Cyanocobalamin (Vitamin B-12) 3,000 MCG capsule Discontinued 3000 ug PO DAILY July 19, 2020 12:00am August 05, 2020 9:54am supplement Start: 11-23-2019 End: 05-21-2022 cyanocobalamin, vitamin B-12 , 3,000 mcg subl Dissolve 1 tablet under the tongue once daily. 30 tablet 5 11/23/2019 05/21/2022 Discontinued Start: 08-15-2016 End: 09-06-2016 take 3000 ug by mouth once daily Cyanocobalamin (Vitamin B-12) 3,000 MCG Lozenge Discontinued 3000 ug PO DAILY August 15, 2016 12:00am September 06, 2016 8:27am End: 08-02-2013 VITAMIN B 12 250 MCG LOZG CYANOCOBALAMIN [id number] Ramila Cowan LPN Comment on above: Dissolve 1 tablet un juan jose the tongue once daily. Walker misc (20 sources) Start: 06-13-2021 Walker [...] Class(es) Dates Sig (Normalized) Sig (Original) acetaminophen 250 mg / aspirin 250 mg / caffeine 65 mg oral tablet (6 sources) Platelet Aggregation Inhibitor, Nonsteroidal Anti-inflammatory Drug, Central Nervous System Stimulant, Methylxanthine Start: 07-19-2020 End: 08-05-2020 Aspirin-Acetaminop hen-Caffeine 1 EACH tablet Discontinued 1 NMA PO NEEDED as needed for Headache July 19, 2020 12:00am August 05, 2020 9:54am Start: 07-12-2019 End: 03-31-2020 Chvrapb-Evklzjtzubrtz-Rgphhj ne (Excedrin Extra Strength) 250-250-65 mg tablet Discontinued 2 {tbl} PO EVERY 6 HOURS as needed for Migraine Symptoms July 12, 2019 12:00am March 31, 2020 9:37am Start: 06-03-2016 End: 09-06-2016 take 1 tablet by mouth once daily as needed Aspirin/Acetaminophen/Caffeine (Excedrin Extra Strength Caplet) 1 EACH tablet Discontinued 1 NMA PO DAILY as needed for Headache June 03, 2016 12:00am September 06, 2016 8:27am amLODIPine 2.5 mg oral tablet (20 sources) Dihydropyridine Calcium Channel Dave End: 11-24-2013 take 1 tablet by mouth once daily NORVASC 2.5 MG TABS One tablet by mouth daily AMLODIPINE BESYLATE [id number] Olga Lara MD bismuth subsalicylate 17.5 mg/ml oral suspension (3 [...] as needed for up to 5 days. 24 hr buPROPion hydrochloride 150 mg extended release oral tablet (2 sources) Aminoketone Start: 10-16-2015 End: 10-19-2015 take 1 tablet by mouth once daily Bupropion Hcl 150 MG Tab.Er.24h Discontinued 150 mg PO DAILY October 16, 2015 1:00am October 19, 2015 3:34pm caffeine 200 mg oral tablet (2 sources) Central Nervous System Stimulant, Methylxanthine Start: 07-19-2020 End: 08-05-2020 Caffeine 200 MG tablet Discontinued 100 mg PO NEEDED as needed for Headache July 19, 2020 12:00am August 05, 2020 9:54am CALCIUM CARB-CHOLECALCIFERO L (8 sources) take 1 tablet by mouth once daily CALCIUM-VITAMIN D3 500-400 MG-UNIT TABS One tablet by mouth daily CALCIUM CARB-CHOLECALCIFER OL [id number] Ramila Cowan LPN cefdinir 300 mg oral capsule (2 sources) Cephalosporin Antibacterial Start: 11-11-2020 End: 05-11-2025 take 1 capsule by mouth every twelve hours Cefdinir 300 MG capsule Discontinued 300 mg PO Q12H November 11, 2020 1:00am May 11, 2025 6:54pm cetirizine hydrochloride 10 mg oral tablet (17 sources) Histamine-1 Receptor Antagonist Start: 09-06-2016 End: 09-13-2016 take 1 tablet by mouth once daily Cetirizine Hcl (Zyrtec) 10 MG tablet Discontinued 10 mg PO DAILY September 06, 2016 1:00am September 13, 2016 2:54pm Start: 08-15-2016 End: 09-13-2016 take 1 capsule by mouth once daily Cetirizine (Zyrtec) 10 MG capsule Discontinued 10 mg PO DAILY August 15, 2016 12:00am September 13, 2016 2:51pm Start: 12-23-2013 End: 10-19-2015 take 1 mg by mouth once daily as needed Cetirizine (Child Allergy Relf(Cetirizine)) 1 MG/ML Ml Discontinued 5 - 10 mL PO DAILY NEEDED as needed for Allergies December 23, 2013 1:00am October 19, 2015 3:33pm [facility] ALLERGY 1 MG/ML SYRP 5mg po q day CETIRIZINE HCL [id number] Ramila Cowan LPN chlorhexidine gluconate 40 mg/ml medicated liquid soap (20 sources) Start: 11-24-2013 End: 03-03-2017 CHLORHEXIDINE GLUCONATE 4 % LIQD CHLORHEXIDINE GLUCONATE [id number] Olga Lara MD citalopram 40 mg oral tablet (11 sources) Serotonin Reuptake Inhibitor take 1 tablet by mouth once daily CELEXA 40 MG TABS One tablet by mouth daily CITALOPRAM HYDROBROMIDE [id number] Ramila Cowan LPN clopidogrel 75 mg oral tablet (15 sources) P2Y12 Platelet Inhibitor Start: 07-13-2019 End: 05-11-2025 take 1 tablet by mouth once daily Clopidogrel 75 mg tablet Discontinued 75 mg PO DAILY 25 09November 24, 2020 2:30pm May 11, 2025 6:54pm BLOOD THINNER Comment on above: .COMPLEX CPAP (20 sources) [...] , filters, tubing, humidifier and lifetime supplies. docusate sodium 50 mg / sennosides, alf 8.6 mg oral tablet (2 sources) Start: 08-05-2020 End: 08-15-2020 Sennosides-Docusate Sodium 1 TABLET tablet Discontinued 2 {tbl} PO TWICE A DAY 0 August 05, 2020 12:00am August 15, 2020 3:28pm Take until first bowel movement, then as needed doxycycline hyclate 100 mg oral capsule (20 sources) Tetracycline-class Drug Start: 08-02-2013 End: 11-24-2013 DOXYCYCLINE HYCLATE 100 MG CAPS one every 12 hrs x 2 wks DOXYCYCLINE HYCLATE [id number] Olga Lara MD Start: 07-22-2013 End: 11-24-2013 take 1 tablet by mouth twice daily DOXYCYCLINE HYCLATE 100 MG TABS One tablet by mouth twice daily DOXYCYCLINE HYCLATE [id number] Olga Lara MD DULoxetine 60 mg delayed release oral capsule (20 sources) Serotonin and Norepinephrine Reuptake Inhibitor Start: 07-12-2019 End: 07-13-2019 Duloxetine 30 mg capsule,delayed release(DR/EC) Discontinued 30 mg PO .COMPLEX July 12, 2019 12:00am July 13, 2019 3:05pm 30 mg PO daily with a 60 mg capsule to = 90 mg; Start: 03-15-2019 End: 12-20-2024 Duloxetine 60 mg capsule,del ayed release(DR/EC) Discontinued 60 mg PO .COMPLEX July 12, 2019 7:59pm July 13, 2019 3:05pm 60 mg PO daily with a 30 mg capsule to = 90 mg; Comment on above: Take 1 capsule by [facility] once daily. 0.4 ml enoxaparin sodium 100 mg/ml prefilled syringe (4 sources) Low Molecular Weight Heparin Start: 0 End: 0 Enoxaparin 40 MG/0.4 ML syringe Discontinued 40 mg SC DAILY@0600 August 15, 2020 3:28pm August 30, 2020 8:28pm DVT Prophylaxis Continue Lovenox until 2-week follow-up at [facility] [place] for DVT prophylaxis famotidine 20 mg oral tablet (2 sources) Histamine-2 Receptor Antagonist Start: 6 End: 6 take 1 tablet by mouth once daily Famotidine 20 MG tablet Discontinued 20 mg PO DAILY 10 0 September 06, 2016 1:00am September 13, 2016 2:54pm fluconazole 150 mg oral tablet (20 sources) Azole Antifungal Start: 4 End: 4 fluconazole (DIFLUCAN) 150 mg tablet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 #### L [id number], L100.0100, [id number] #### [facility] [address] [place], [address] Erythrocyte distribution width (RBC) [Ratio] 14.0 % Normal 11.6-14.6 [facility] Comment on above: Performed By: #### L [id number], L100.0100, [id number] #### [facility] [address] [place], [address] Hematocrit (Bld) [Volume fraction] 30.3 % Low 37-47 [facility] Comment on above: Performed By: #### L [id number], L100.0100, [id number] #### [facility] [address] [place], [address] Hemoglobin (Bld) [Mass/Vol] 9.9 g/dL Low 12.0-15.0 [facility] Comment on above: Performed By: #### L [id number], L100.0100, [id number] #### [facility] [address] [place], [address] IG% 0.300 Normal 0.0-0.9 [facility] Comment on above: Result Comment: IG% - Immature Granulocytes (promyelocytes, myelocytes and metamyelocytes) > 1% indicates that a LEFT SHIFT is Present. Performed By: #### L [id number], L100.0100, [id number] #### [facility] [address] [place], [address] Lymphocytes/100 WBC (Bld) 7.0 % Low 19-41 [facility] Comment on above: Performed By: #### L [id number], L100.0100, [id number] #### [facility] [address] [place], [address] MCH (RBC) [Entitic mass] 30.7 pg Normal 27.0-32.0 [facility] Comment on above: Performed By: #### L [id number], L100.0100, [id number] #### [facility] [address] [place], [address] MCHC (RBC) [Mass/Vol] 32.7 g/dL Normal 32-36 [facility] Comment on above: Performed By: #### L [id number], L100.0100, [id number] #### [facility] [address] [place], [address] MCV (RBC) [Entitic vol] 94.1 fL Normal 81-99 [facility] Comment on above: Performed By: #### L 500.4050, L100.0100, [id number] #### [facility] [address] [place], [address] Monocytes/100 WBC (Bld) 8.4 % Normal 0-10 [facility] Comment on above: Performed By: #### L [id number], L100.0100, [id number] #### [facility] [address] [place], [address] Neutrophils/100 WBC (Bld) 83.7 % High 47-70 [facility] Comment on above: Performed By: #### L [id number], L100.0100, [id number] #### [facility] [address] [place], [address] Nucleated RBC (Bld) [#/Vol] 0 10*3/uL Normal 0-5 [facility] Comment on above: Performed By: #### L 500.4050, L100.0100, [id number] #### [facility] [address] [place], [address] Platelet mean volume (Bld) [Entitic vol] 9.4 fL Normal 6.2-12.0 [facility] Comment on above: Performed By: #### L 500.4050, L100.0100, L501.2450 #### [facility] [address] [place], [address] Platelets (Bld) [#/Vol] 233 10*3/uL Normal 150-450 [facility] Comment on above: Performed By: #### L 500.4050, L100.0100, [id number] #### [facility] [address] [place], [address] RBC (Bld) [#/Vol] 3.22 10*6/uL Low 4.2-5.4 [facility] Comment on above: Performed By: #### L 500.4050, L100.0100, [id number] #### [facility] [address] [place], [address] RDW SD 48.0 fl High 35.1-43.9 [facility] Comment on above: Performed By: #### L 500.4050, L100.0100, [id number] #### [facility] [address] [place], [address] WBC (Bld) [#/Vol] 11.5 10*3/uL High 4.4-11.0 [facility] Comment on above: Performed By: #### L 500.4050, L100.0100, [id number] #### [facility] [address] [place], [address] CO2 (BldV) [Moles/Vol]Ordere d By: Virgil Corrales on 05-11-2025 CO2 [Moles/Vol] 21 mmol/L Low 23-33 [facility] Carbon dioxide, total [Moles /volume] in Central venous bloodOrdered By: Virgil Corrales on 05-11-2025 CO2 [Moles/Vol] 15.6 mmol/L Low 21.0-32.0 [facility] Chloride assayOrdered By: Fredrick Corrales on 05-11-2025 Chloride [Moles/Vol] 96 mmol/L Low 98-108 [facility] Comprehensive Metabolic Prof ilon 05-11-2025 Albumin [Mass/Vol] 3.9 g/dL Normal 3.4-4.8 [facility] Comment on above: Performed By: #### L 500.4050, L100.0100, [id number] #### [facility] [address] [place], [address] Albumin/Globulin [Mass ratio] 1.3 {ratio} Normal 0.9-2.4 [facility] Comment on above: Performed By: #### L 500.4050, L100.0100, L501.2450 #### [facility] [address] [place], [address] ALK PHOS 86 U/L Normal 35-104 [facility] Comment on above: Performed By: #### L 500.4050, L100.0100, [id number] #### [facility] [address] [place], [address] ALT [Catalytic activity/Vol] 32 U/L Normal <=34 [facility] Comment on above: Performed By: #### L 500.4050, L100.0100, L501.2450 #### [facility] [address] [place], [address] AST [Catalytic activity/Vol] 77 U/L High <=31 [facility] Comment on above: Result Comment: Hemo lysis present, Results??could be affected. ?? Performed By: #### L 500.4050, L100.0100, L501.2450 #### [facility] [address] [place], [address] Bilirubin [Mass/Vol] 0.52 mg/dL Normal 0.00-1.30 [facility] Comment on above: Performed By: #### L 500.4050, L100.0100, [id number] #### [facility] [address] [place], [address] BUN/CRE 48.1 RATIO High 10-20 [facility] Comment on above: Performed By: #### L 500.4050, L100.0100, [id number] #### [facility] [address] [place], [address] Calcium [Mass/Vol] 9.3 mg/dL Normal 7.6-11.0 [facility] Comment on above: Performed By: #### L 500.4050, L100.0100, [id number] #### [facility] [address] [place], [address] Chloride [Moles/Vol] 96 mmol/L Low 98-108 [facility] Comment on above: Performed By: #### L 500.4050, L100.0100, [id number] #### [facility] [address] [place], [address] CO2 [Moles/Vol] 15.6 mmol/L Low 21.0-32.0 [facility] Comment on above: Performed By: #### L 500.4050, L100.0100, L501.2450 #### [facility] [address] [place], [address] Creatinine [Mass/Vol] 1.22 mg/dL High 0.70-1.20 [facility] Comment on above: Performed By: #### L 500.4050, L100.0100, L501.2450 #### [facility] [address] [place], [address] ECRCL 40.78 ml/min Low 50-250 [facility] Comment on above: Performed By: #### L 500.4050, L100.0100, [id number] #### [facility] [address] [place], [address] GAP 17 High 5-15 [facility] Comment on above: Performed By: #### L 500.4050, L100.0100, [id number] #### [facility] [address] [place], [address] GFR/1.73 sq M.predicted among non-blacks MDRD (S/P/Bld) [Vol rate/Area] 45 mL/min/{1.73_m2} Low >60 [facility] Comment on above: Result Comment: mL/m in/1.73m2 CKD-EPI Creatinine Equation (2020) Performed By: #### L 500.4050, L100.0100, L501.2450 #### [facility] [address] [place], [address] Globulin (S) [Mass/Vol] 3.1 g/dL Normal 2.2-4.2 [facility] Comment on above: Performed By: #### L 500.4050, L100.0100, L501.2450 #### [facility] [address] [place], [address] Glucose [Mass/Vol] 124 mg/dL High 70-99 [facility] Comment on above: Performed By: #### L 500.4050, L100.0100, [id number] #### [facility] [address] [place], [address] Potassium [Moles/Vol] 3.9 mmol/L Normal 3.3-5.1 [facility] Comment on above: Result Comment: Hemo lysis present, Results??could be affected. ?? Performed By: #### L 500.4050, L100.0100, [id number] #### [facility] [address] [place], [address] Sodium [Moles/Vol] 129 mmol/L Low 133-145 [facility] Comment on above: Performed By: #### L 500.4050, L100.0100, L501.2450 #### [facility] [address] [place], [address] T PROT 6.9 g/dL Normal 5.9-8.4 [facility] Comment on above: Performed By: #### L 500.4050, L100.0100, L501.2450 #### [facility] [address] [place], [address] Urea nitrogen [Mass/Vol] 59 mg/dL High 4-19 [facility] Comment on above: Performed By: #### L 500.4050, L100.0100, L501.2450 #### [facility] [address] [place], [address] Eosinophil percentageOrdered By: Virgil Corrales on 05-11-2025 Eosinophils/100 WBC (Bld) 0.3 % 0-5 [facility] Erythrocyte distribution wid th ratioOrdered By: Virgil Corrales on 05-11-2025 Erythrocyte distribution width (RBC) [Ratio] 14.0 % 11.6-14.6 [facility] Erythrocyte distribution wid th standard deviationOrdered By: Virgil Corrales on 05-11-2025 Erythrocyte distribution width (RBC) [Ratio] 48.0 fl High 35.1-43.9 [facility] Glomerular filtration rate ( GFR) estimation/1.73 sq m using serum, plasma, or whole bOrdered By: Virgil Corrales on 05-11-2025 GFR/1.73 sq M.predicted among non-blacks MDRD (S/P/Bld) [Vol rate/Area] 45 mL/min/{1.73_m2} Low >60 [facility] Comment on above: mL/min/1.73m2 CKD-EP I Creatinine Equation (2020) Hematocrit Auto (Bld) [Volum e fraction]Ordered By: Virgil Corrales on 05-11-2025 Hematocrit (Bld) [Volume fraction] 30.3 % Low 37-47 [facility] Hemoglobin measurementOrdere d By: Virgil Corrales on 05-11-2025 Hemoglobin (Bld) [Mass/Vol] 9.9 g/dL Low 12.0-15.0 [facility] Immature granulocytes/100 WB C Auto (Bld)Ordered By: Virgil Corrales on 05-11-2025 Immature granulocytes/100 WBC (Bld) 0.300 % 0.0-0.9 [facility] Comment on above: IG% - Immature Granu locytes (promyelocytes, myelocytes and metamyelocytes) > 1% indicates that a LEFT SHIFT is Present. Ketones Test strip Ql (U)Ord ered By: Virgil Corrales on 05-11-2025 Ketones Ql (U) Negative Negative [facility] L501.4021on 05-11-2025 Trop T High Sen 26 ng/L High <=14 [facility] Comment on above: Performed By: #### L 501.4021 #### [facility] [address] [place], [address] Laboratory - Chemistry and C hemistry - challengeOrdered By: Virgil Corrales on 05-11-2025 AST [Catalytic activity/Vol] 77 U/L High <32 [facility] Comment on above: Hemolysis present, R esults could be affected. Lactic Acidon 05-11-2025 Lactate [Moles/Vol] 3.2 mmol/L Invalid Interpretation Code 0.0-2.0 [facility] Comment on above: Order Comment: Y Result Comment: Crit ical Result(s) Called LSPARR at: 2019 by: MILKA??Results read back by same. Performed By: #### L 503.6005 #### [facility] [address] [place], [address] Lactic acid measurementOrder ed By: Virgil Corrales on 05-11-2025 Lactate [Moles/Vol] 3.2 mmol/L High 0.0-2.0 [facility] Comment on above: Critical Result(s) C alled LSPARR at: 2019 by: MILKA Results read back by same. Lipaseon 05-11-2025 Lipase [Catalytic activity/Vol] 29 U/L Normal 13-75 [facility] Comment on above: Result Comment: Danuta garcia note: LIPASE revised reference range effective 23. New Lipase methodology. Expected to produce lower values than the previous assay method. NEW Reference Range: 13 - 75 U/L Performed By: #### L 500.3840, L100.0100, L501.2450 #### [facility] [address] [place], [address] Lipase measurementOrdered By : Virgil Corrales on 05-11-2025 Lipase [Catalytic activity/Vol] 29 U/L 13-75 [facility] Comment on above: Please note:LIPASE r evised reference range effective 23. New Lipase methodology. Expected to produce lower values than the previous assay method. NEW Reference Range: 13 - 75 U/L MCV (mean corpuscular volume ) determinationOrdered By: Virgil Corrales on 05-11-2025 MCV (RBC) [Entitic vol] 94.1 fL 81-99 [facility] Mean corpuscular hemoglobin (MCH) determinationOrdered By: Virgil Corrales on 05-11-2025 MCH (RBC) [Entitic mass] 30.7 pg 27.0-32.0 [facility] Mean corpuscular hemoglobin concentration (MCHC) determinationOrdered By: Virgil Corrales on 05-11-2025 MCHC (RBC) [Mass/Vol] 32.7 g/dL 32-36 [facility] Mean platelet volume determi nationOrdered By: Virgil Corrales on 05-11-2025 Platelet mean volume (Bld) [Entitic vol] 9.4 fL 6.2-12.0 [facility] Microscopic analysis of urin e for red blood cells (RBC)Ordered By: Virgil Corrales on 05-11-2025 Microscopic analysis of urine for red blood cells (RBC) 0 SEEN /hpf 0-5 [facility] Monocyte percentageOrdered B y: Virgil Corrales on 05-11-2025 Monocytes/100 WBC (Bld) 8.4 % 0-10 [facility] Mucus LM Ql (Urine sed)Order ed By: Virgil Corrales on 05-11-2025 Mucus Ql (Urine sed) 0 SEEN /hpf [facility] Neutrophil percentageOrdered By: Virgil Corrales on 05-11-2025 Neutrophils/100 WBC (Bld) 83.7 % High 47-70 [facility] Nitrite Test strip Ql (U)Ord ered By: Virgil Corrales on 05-11-2025 Nitrite Ql (U) Negative Negative [facility] No Panel InformationOrdered By: Virgil Corrales on 05-11-2025 Blood Gas Sample Site Not entered [facility] Blood Gas Specimen Type JUDY [facility] Oxygen Delivery Device Not entered [facility] Nucleated red blood cell per centageOrdered By: Virgil Corrales on 05-11-2025 Nucleated RBC/100 WBC (Bld) [Ratio] 0 % 0-5 [facility] Platelet countOrdered By: Fredrick Corrales on 05-11-2025 Platelets (Bld) [#/Vol] 233 10*3/uL 150-450 [facility] Potassium measurement (mass/ volume)Ordered By: Virgil Corrales on 05-11-2025 Potassium (Unsp spec) [Mass/Vol] 3.9 mmol/L 3.3-5.1 [facility] Comment on above: Hemolysis present, R esults could be affected. Protein Test strip Ql (U)Ord ered By: Virgil Corrales on 05-11-2025 Protein Ql (U) 30 mg/dl High Negative [facility] RBC Auto (Bld) [#/Vol]Ordere d By: Virgil Corrales on 05-11-2025 RBC (Bld) [#/Vol] 3.22 10*6/uL Low 4.2-5.4 [facility] Serum creatinine measurement (mass/volume)Ordered By: Virgil Corrales on 05-11-2025 Creatinine [Mass/Vol] 1.22 mg/dL High 0.70-1.20 [facility] Serum globulin measurementOr dered By: Virgil Corrales on 05-11-2025 Globulin (S) [Mass/Vol] 3.1 g/dL 2.2-4.2 [facility] Serum glucose measurement (m ass/volume)Ordered By: Virgil Corrales on 05-11-2025 Glucose [Mass/Vol] 124 mg/dL High 70-99 [facility] Serum or plasma alanine garcia otransferase (ALT) measurementOrdered By: Virgil Corrales on 05-11-2025 ALT [Catalytic activity/Vol] 32 U/L <35 [facility] Serum or plasma albumin cong urement (mass/volume)Ordered By: Virgil Corrales on 05-11-2025 Albumin [Mass/Vol] 3.9 g/dL 3.4-4.8 [facility] Serum or plasma albumin/glob ulin mass ratioOrdered By: Virgil Corrales on 05-11-2025 Albumin/Globulin [Mass ratio] 1.3 {ratio} 0.9-2.4 [facility] Serum or plasma alkaline sonido sphatase measurementOrdered By: Virgil Corrales on 05-11-2025 ALP [Catalytic activity/Vol] 86 U/L 35-104 [facility] Serum or plasma calcium cong urement (mass/volume)Ordered By: Virgil Corrales on 05-11-2025 Calcium [Mass/Vol] 9.3 mg/dL 7.6-11.0 [facility] Serum or plasma ferritin jag surement (mass/volume)Ordered By: Ifeanyi Paula on 05-11-2025 Ferritin [Mass/Vol] 135 ng/mL 22-378 [facility] Serum or plasma iron saturat ion measurement (mass fraction)Ordered By: Ifeanyi Paula on 05-11-2025 Iron saturation [Mass fraction] 12.0 % Low 13-59 [facility] Serum or plasma urea nitroge n measurement (mass/volume)Ordered By: Virgil Corrales on 05-11-2025 Urea nitrogen [Mass/Vol] 59 mg/dL High 4-19 [facility] Sodium levelOrdered By: Carol Corrales on 05-11-2025 Sodium [Moles/Vol] 129 mmol/L Low 133-145 [facility] Squamous epithelial cells de tection in urine sediment by light microscopyOrdered By: Virgil Corrales on 05-11-2025 Epithelial cells.squamous LM Ql (Urine sed) 0 SEEN /hpf 5-10 [facility] TSH DL <= 0.005 mIU/L QnOrde red By: Ifeanyi Paula on 05-11-2025 TSH Qn 2.340 uIU/mL 0.300-4.200 [facility] Total proteinOrdered By: Jurgen Corrales on 05-11-2025 Protein [Mass/Vol] 6.9 g/dL 5.9-8.4 [facility] Troponin T.cardiac [Mass/vol ume] in Serum or Plasma by High sensitivity methodOrdered By: Virgil Corrales on 05-11-2025 Troponin T.cardiac High sensitivity method [Mass/Vol] 26 ng/L High <14 [facility] Urinalysis, Completeon 05-11 AMORPHOUS 1+ URATE Normal [facility] Comment on above: Order Comment: CLEAN CATCH Performed By: #### L 400.0001 #### [facility] [address] [place], [address] WBC 0-5 SEEN Normal 0-5 [facility] Comment on above: Order Comment: CLEAN CATCH Performed By: #### L 400.0001 #### [facility] [address] [place], [address] BACTERIA 2+ /hpf Normal None Seen [facility] Comment on above: Order Comment: CLEAN CATCH Performed By: #### L 400.0001 #### [facility] [address] [place], [address] EPI,SQUAMOUS 0 SEEN Normal 5-10 [facility] Comment on above: Order Comment: CLEAN CATCH Performed By: #### L 400.0001 #### [facility] [address] [place], [address] Mucus Ql (Urine sed) 0 SEEN Normal [facility] Comment on above: Order Comment: CLEAN CATCH Performed By: #### L 400.0001 #### [facility] [address] [place], [address] RBC 0 SEEN Normal 0-5 [facility] Comment on above: Order Comment: CLEAN CATCH Performed By: #### L [id number] #### [facility] [address] [place], [address] Urine clarityOrdered By: Jurgen Corrales on 05-11-2025 Clarity (U) Cloudy Clear [facility] Urine color determinationOrd ered By: Virgil Corrales on 05-11-2025 Color (U) Straw Yellow [facility] Urine glucose detectionOrder ed By: Virgil Corrales on 05-11-2025 Glucose Ql (U) Normal mg/dl Normal [facility] Urine leukocyte esterase det ection by dipstickOrdered By: Virgil Corrales on 05-11-2025 Leukocyte esterase Test strip Ql (U) Negative Negative [facility] Urine pHOrdered By: Virgil chan on 05-11-2025 pH (U) 5.0 [pH] 5.0 - 8.0 [facility] Urine sediment bacteria coun t by microscopy (number/high power field)Ordered By: Virgil Corrales on 05-11-2025 Bacteria LM.HPF (Urine sed) [#/Area] 2 /[HPF] None Seen [facility] Urine specific gravity measu rementOrdered By: Virgil Corrales on 05-11-2025 Specific gravity (U) [Rel density] 1.020 1.002-1.030 [facility] Urine urobilinogen measureme ntOrdered By: Virgil Corrales on 05-11-2025 Urobilinogen Ql (U) Normal mg/dl Normal [facility] Venous Blood Gason Blood Gas Type JUDY Normal [facility] Comment on above: Performed By: #### L 9000.0810 #### [facility] [address] [place], [address] CO2 [Moles/Vol] 21 mmol/L Low 23-33 [facility] Comment on above: Performed By: #### L 9000.0810 #### [facility] [address] [place], [address] HCO3 (Bld) [Moles/Vol] 19 mmol/L Low 22-26 [facility] Comment on above: Performed By: #### L [id number] #### [facility] [address] [place], [address] O2 Delivery Dev Not entered Normal [facility] Comment on above: Performed By: #### L [id number] #### [facility] [address] [place], [address] SITE Not entered Normal [facility] Comment on above: Performed By: #### L [id number] #### [facility] [address] [place], [address] VBG BE -6 mmol/L Low -1.0-3.5 [facility] Comment on above: Performed By: #### L [id number] #### [facility] [address] [place], [address] VBG pCO2 33.5 mmHg Low 41-51 [facility] Comment on above: Performed By: #### L [id number] #### [facility] [address] [place], [address] VBG pH 7.37 Normal 7.32-7.42 [facility] Comment on above: Performed By: #### L [id number] #### [facility] [address] [place], [address] VBG PO2 138 mmHg High 25-40 [facility] Comment on above: Performed By: #### L [id number] #### [facility] [address] [place], [address] VBG SO2 99 High 50-70 [facility] Comment on above: Performed By: #### L [id number] #### [facility] [address] [place], [address] Venous blood base excess jag surementOrdered By: Virgil Corrales on 05-11-2025 Base excess Calc (BldV) [Moles/Vol] -6 mmol/L Low -1.0-3.5 [facility] Venous blood bicarbonate jag surementOrdered By: Virgil Corrales on 05-11-2025 HCO3 (Bld) [Moles/Vol] 19 mmol/L Low 22-26 [facility] Venous blood oxygen saturati on measurementOrdered By: Virgil Corrales on 05-11-2025 Oxygen saturation in Blood 99 % High 50-70 [facility] Venous blood pH measurementO rdered By: Virgil Corrales on 05-11-2025 pH (BldV) 7.37 [pH] 7.32-7.42 [facility] Venous blood partial pressur e of carbon dioxide measurementOrdered By: Virgil Corrales on 05-11-2025 CO2 (BldV) [Partial pressure] 33.5 mm[Hg] Low 41-51 [facility] Venous blood partial pressur e of oxygen measurementOrdered By: Virgil Corrales on 05-11-2025 Oxygen (BldV) [Partial pressure] 138 mm[Hg] High 25-40 [facility] White blood cell (WBC) count Ordered By: Virgil Corrales on 05-11-2025 WBC (Bld) [#/Vol] 11.5 10*3/uL High 4.4-11.0 [facility] White blood cell countOrdere d By: Virgil Corrales on 05-11-2025 White blood cell count 0-5 SEEN /hpf 0-5 [facility] Emergency Department Summary on 05-08-2025 Emergency Department Summary [facility] Medical Records Department [address] [place] [address] Emergency Department Summary 05/08/25 MR#: [id number] Acct: [id number] Name: KATH ARRIAGA Rep #: [id number] : 1945 79 From: Kev Nelson DO PCP: Dr. Deb Tam MD Status:REG ER Location: ED HPI History of Present Illness HPI Narrative: Patient presents after a fall that occurred today. Patient states she lost her balance. Patient states she has a history of vertigo and balance problems. Patient states she fell onto her right shoulder. Patient describes it as aching and worse with movement. Patient is nothing makes it better. Patient denies any head injury or loss of consciousness. Patient denies any paresthesias or weakness. Patient denies any other injuries. Chief Complaint: Fall Informant: patient Onset/Context/Timing Onset: Today Context: Sudden Onset Timing: Continuous Quality of Pain: Aching Location: Right shoulder and humerus Worsened by: Movement Relieved by: Nothing Associated Symptoms Associated Symptoms: Negative for Parasthesia, Weakness or Loss of Funtion [facility] Medical History (Updated 05/08/25 @ 14:[address] Kev Nelson, DO) Atherosclerosis of coronary artery of [place] heart without angina pectoris Obstructive sleep apnea Abnormal nuclear stress test Home Medications ???Medication ???Instructions ???Recorded ???Last Taken ???Type levothyroxine 75 mcg tablet 75 mcg PO DAILY thyroid 12/23/13 0 11/08/20 History losartan 50 mg tablet 50 mg PO DAILY bp 03/15/19 1 History diphenhydramine HCl 25 mg capsule 25 mg PO QDAY PRN allergies 07/1211/07/20 History (Benadryl) zolpidem 10 mg tablet (Ambien) 10 mg PO QHS PRN Insomnia 07/12/19 11/07/20 History duloxetine 60 mg capsule,delayed 60 mg PO DAILY depression 07/13/19 11/08/20 History release acetaminophen 500 mg tablet 1,000 mg PO Q8H PRN Pain 1-10 Or 1 11/07/20 History Fever aspirin 81 mg chewable tablet 81 mg PO BIDCM DVT Prophylaxis 11/08/20 History calcium 500 mg (as 1 tab PO BIDCM 08/30/20 11/08/20 R x carbonate)-vitamin D3 5 mcg (200 unit) tablet esomeprazole magnesium 40 mg 40 mg PO 0600,1700 08/30/20 Rx capsule,delayed release ferrous sulfate 27 mg iron tablet 27 mg PO DAILY SUPPLEMENT 1 11/08/20 History meloxicam 15 mg tablet 15 mg PO DAILY PRN PRN Pain 1-10 0 11/08/20 11/08/20 History Or Fever yfyvkjmn-cpuo-mfqb 8 mg-folic 400 1 tab PO DAILY SUPPLEMENT 1 11/08/20 History mcg-K 50 mcg-lutein 300 mcg tablet cefdinir 300 mg capsule 300 mg PO Q12H #14 caps 11/11/20 U nknown Rx metronidazole 500 mg tablet 500 mg PO TID #21 tabs 11/11/20 Un known Rx clopidogrel 75 mg tablet 75 mg PO DAILY BLOOD THINNER #30 0 11/24/20 Unknown Rx tabs rosuvastatin 10 mg tablet 10 mg PO DAILY cholesterol #90 tab s 05/06/24 Unknown Rx hydrocodone-acetamin ophen 5-325mg 1 tab PO Q6H PRN PRN Pain 3 days 05/08/25 Unknown Rx 5mg-325mg #10 TABLETS Allergy/AdvReac Type Severity Reaction Status Date / Time cat dander Allergy Intermediate nasal Verified 11/08/20 15:36 congestion ciprofloxacin (From Cipro) Allergy Hives Verified 11/08/20 15:36 ciprofloxacin HCl (From Allergy Hives Verified 11/08/20 15:36 Cipro) clindamycin Allergy Rash Verified 11/08/20 15:36 doxycycline Allergy Other Verified 11/08/20 15:36 latex Allergy Hives Verified 11/08/20 15:36 nitrofurantoin (From Allergy Other Verified 11/08/20 15:36 Macrobid) Penicillins Allergy Shortness Verified 11/08/20 15:36 of breath vortioxetine (From AdvReac Intermediate GI upset Verified 11/08/20 15:36 Brintellix) methotrexate AdvReac Unknown unknown Verified 11/08/20 15:36 trazodone AdvReac Other Verified 11/08/20 15:36 Family History Father , Hodgkin's age 29 Hodgkin disease Mother Lung cancer Surgical History (Updated 05/08/25 @ 14:[address] 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, bilateral Stented coronary artery (07/16/19) Social History Smoking Status: Former smoker quit date: 10/27/82 pack-years: 20 ROS ROS ED Constitutional Constitutional ED: Denies chills or fever(s) Eyes Eyes: Denies blurry vision or change in vision ENT ENT ED: Denies rhinorrhea or sore throat Cardiovascular Cardiovascular: Denies chest pain or palpitations Respiratory/Chest Respiratory/Chest: Denies cough or dyspnea Gastrointestinal Gastrointestinal: Denies nausea or vomiting Genitourinary Genitourinary ED: Denies dysuria or hematuria Musculoskeletal Musculoskeletal: Denies ba (more content not included)... Normal [facility] Shoulder min 2 Viewson 05-08 Shoulder min 2 Views [facility] Imaging Services [address] [place] [address] Shoulder min 2 Views MR#: [id number] Acct: [id number] Name: KATH ARRIAAG Rep #: [id number] : 1945 F 79 From: Jg Talamantes MD PCP: Dr. Deb Tam MD Status: REG ER Study: Shoulder min 2 Views Date of Exam: 05/08/25 Exam# [id number] Ordering Dr: Kev Nelson DO PROCEDURE: SHOULDER MIN 2 VIEWS 05/08/2025 REASON FOR EXAM: INJURY/PAIN TECHNIQUE: SHOULDER MIN 2 VIEWS COMPARISON: None FINDINGS: See below. RAD/Shoulder min 2 Views IMPRESSION: There is a slightly comminuted and mildly impacted fracture through the right humeral neck, which involves the greater tuberosity.Recommend Orthopedic Surgery consultation. Degenerative changes of the acromioclavicular and glenohumeral joints. Calcification adjacent to the humeral head may represent sequela of calcific tendinopathy. Coarsened interstitial markings throughout the visualized lungs. Aortic atherosclerosis. Degenerative changes of the spine. Reading Location: [facility] CC: Dr. Kev Nelson DO; Dr. Deb Tam MD Press Shop Supervisor: Signed Normal [facility] 25([place])D3 [facility] 2024 25-hydroxyvitamin D3 [Mass/Vol] 34.8 ng/mL Normal 31.0-80.0 [facility] Comment on above: Order Comment: Speci men Type: BLOOD SPECIMEN Ordering Facility: [facility] Address: [address] [place] [address] Performed By: #### 1 989-3 #### [facility] CLIA [id number] [address] [place] [address] [place] [address] [place] CBC W Auto Differential pane l (Bld)on 03-14-2025 Basophils (Bld) [#/Vol] 0.03 10*3/uL Normal <0.11 [facility] Comment on above: Order Comment: Speci men Type: BLOOD SPECIMEN Ordering Facility: [facility] Address: [address] [place] [address] Performed By: #### 5 7021-8 #### [facility] CLIA [id number] [address] [place] [address] [place] Basophils/100 WBC (Bld) 0.4 % Normal [facility] Comment on above: Order Comment: Speci men Type: BLOOD SPECIMEN Ordering Facility: [facility] Address: [address] [place] [address] Performed By: #### 5 7021-8 #### [facility] CLIA [id number] [address] [place] [address] [place] Differential cell count method Nom (Bld) Auto Normal [facility] Comment on above: Order Comment: Speci men Type: BLOOD SPECIMEN Ordering Facility: [facility] Address: [address] [place] [address] Performed By: #### 5 7021-8 #### [facility] CLIA [id number] [address] [place] [address] [place] Eosinophils (Bld) [#/Vol] 0.09 10*3/uL Normal <0.46 [facility] Comment on above: Order Comment: Speci men Type: BLOOD SPECIMEN Ordering Facility: [facility] Address: [address] [place] [address] Performed By: #### 5 7021-8 #### [facility] CLIA [id number] [address] [place] [address] [place] Eosinophils/100 WBC (Bld) 1.2 % Normal [facility] Comment on above: Order Comment: Speci men Type: BLOOD SPECIMEN Ordering Facility: [facility] Address: [address] [place] [address] Performed By: #### 5 7021-8 #### [facility] CLIA [id number] [address] [place] [address] [place] Erythrocyte distribution width (RBC) [Ratio] 13.2 % Normal 11.5-15.0 [facility] Comment on above: Order Comment: Speci men Type: BLOOD SPECIMEN Ordering Facility: [facility] Address: [address] [place] [address] Performed By: #### 5 7021-8 #### [facility] CLIA [id number] [address] [place] [address] [place] Hematocrit (Bld) [Volume fraction] 39.2 % Normal 36.0-46.0 [facility] Comment on above: Order Comment: Speci men Type: BLOOD SPECIMEN Ordering Facility: [facility] Address: [address] [place] [address] Performed By: #### 5 7021-8 #### [facility] CLIA [id number] [address] [place] [address] [place] Hemoglobin (Bld) [Mass/Vol] 13.2 g/dL Normal 11.5-15.5 [facility] Comment on above: Order Comment: Speci men Type: BLOOD SPECIMEN Ordering Facility: [facility] Address: [address] [place] [address] Performed By: #### 5 7021-8 #### [facility] CLIA [id number] [address] [place] [address] [place] Immature granulocytes (Bld) [#/Vol] 10*3/uL Normal <0.10 [facility] Comment on above: Order Comment: Speci men Type: BLOOD SPECIMEN Ordering Facility: [facility] Address: [address] [place] [address] Performed By: #### 5 7021-8 #### [facility] CLIA [id number] [address] [place] [address] [place] Immature granulocytes/100 WBC (Bld) 0.3 % Normal [facility] Comment on above: Order Comment: Speci men Type: BLOOD SPECIMEN Ordering Facility: [facility] Address: [address] [place] [address] Performed By: #### 5 7021-8 #### [facility] CLIA [id number] [address] [place] [address] [place] Lymphocytes (Bld) [#/Vol] 1.03 10*3/uL Normal 1.00-4.00 [facility] Comment on above: Order Comment: Speci men Type: BLOOD SPECIMEN Ordering Facility: [facility] Address: [address] [place] [address] Performed By: #### 5 7021-8 #### [facility] CLIA [id number] [address] [place] [address] [place] Lymphocytes/100 WBC (Bld) 14.1 % Normal [facility] Comment on above: Order Comment: Speci men Type: BLOOD SPECIMEN Ordering Facility: [facility] Address: [address] [place] [address] Performed By: #### 5 7021-8 #### [facility] CLIA [id number] [address] [place] [address] [place] MCH (RBC) [Entitic mass] 30.7 pg Normal 26.0-34.0 [facility] Comment on above: Order Comment: Speci men Type: BLOOD SPECIMEN Ordering Facility: [facility] Address: [address] [place] [address] Performed By: #### 5 7021-8 #### [facility] CLIA [id number] [address] [place] [address] [place] MCHC (RBC) [Mass/Vol] 33.7 g/dL Normal 30.5-36.0 [facility] Comment on above: Order Comment: Speci men Type: BLOOD SPECIMEN Ordering Facility: [facility] Address: [address] [place] [address] Performed By: #### 5 7021-8 #### [facility] CLIA [id number] [address] [place] [address] [place] MCV (RBC) [Entitic vol] 91.2 fL Normal 80.0-100.0 [facility] Comment on above: Order Comment: Speci men Type: BLOOD SPECIMEN Ordering Facility: [facility] Address: [address] [place] [address] Performed By: #### 5 7021-8 #### [facility] CLIA [id number] [address] [place] [address] [place] Monocytes (Bld) [#/Vol] 0.51 10*3/uL Normal <0.87 [facility] Comment on above: Order Comment: Speci men Type: BLOOD SPECIMEN Ordering Facility: [facility] Address: [address] [place] [address] Performed By: #### 5 7021-8 #### [facility] CLIA [id number] [address] [place] [address] [place] Monocytes/100 WBC (Bld) 7.0 % Normal [facility] Comment on above: Order Comment: Speci men Type: BLOOD SPECIMEN Ordering Facility: [facility] Address: [address] [place] [address] Performed By: #### 5 7021-8 #### [facility] CLIA [id number] [address] [place] [address] [place] Neutrophils (Bld) [#/Vol] 5.62 10*3/uL Normal 1.45-7.50 [facility] Comment on above: Order Comment: Speci men Type: BLOOD SPECIMEN Ordering Facility: [facility] Address: [address] [place] [address] Performed By: #### 5 7021-8 #### [facility] CLIA [id number] [address] [place] [address] [place] Neutrophils/100 WBC (Bld) 77.0 % Normal [facility] Comment on above: Order Comment: Speci men Type: BLOOD SPECIMEN Ordering Facility: [facility] Address: [address] [place] [address] Performed By: #### 5 7021-8 #### [facility] CLIA [id number] [address] [place] [address] [place] Nucleated RBC (Bld) [#/Vol] 10*3/uL Normal <0.01 [facility] Comment on above: Order Comment: Speci men Type: BLOOD SPECIMEN Ordering Facility: [facility] Address: [address] [place] [address] Performed By: #### 5 7021-8 #### [facility] CLIA [id number] [address] [place] [address] [place] Nucleated RBC/100 WBC (Bld) [Ratio] 0.0 /100 WBC Normal [facility] Comment on above: Order Comment: Speci men Type: BLOOD SPECIMEN Ordering Facility: [facility] Address: [address] [place] [address] Performed By: #### 5 7021-8 #### [facility] CLIA [id number] [address] [place] [address] [place] Platelet mean volume (Bld) [Entitic vol] 9.2 fL Normal 9.0-12.7 [facility] Comment on above: Order Comment: Speci men Type: BLOOD SPECIMEN Ordering Facility: [facility] Address: [address] [place] [address] Performed By: #### 5 7021-8 #### [facility] CLIA [id number] [address] [place] [address] [place] Platelets (Bld) [#/Vol] 258 10*3/uL Normal 150-400 [facility] Comment on above: Order Comment: Speci men Type: BLOOD SPECIMEN Ordering Facility: [facility] Address: [address] [place] [address] Performed By: #### 5 7021-8 #### [facility] CLIA [id number] [address] [place] [address] [place] RBC (Bld) [#/Vol] 4.30 10*6/uL Normal 3.90-5.20 [facility] Comment on above: Order Comment: Speci men Type: BLOOD SPECIMEN Ordering Facility: [facility] Address: [address] [place] [address] Performed By: #### 5 7021-8 #### [facility] CLIA [id number] [address] [place] [address] [place] WBC (Bld) [#/Vol] 7.30 10*3/uL Normal 3.70-11.00 [facility] Comment on above: Order Comment: Speci men Type: BLOOD SPECIMEN Ordering Facility: [facility] Address: [address] [place] [address] Performed By: #### 5 7021-8 #### [facility] CLIA [id number] [address] [place] [address] [place] CNOVon 03-14-2025 CNOV Office Visit (INTMWS) KATH ARRIAGA ([id number]) 1945 F [facility] Date Time Provider Department 03/14/25 2:00 PM OLGA GAITAN INTMWS During your visit today, we recorded the following information about you: Pulse Blood pressure Weight 90/minute 144/80 94.1 kg Olga Gaitan APRN.REHABILITATION AIDE/SCHEDULER 03/14/2025 3:06 PM Signed SUBJECTIVE Kath Arriaga [...] injury sustained years ago while working at [employer], which has contributed to her chronic pain. [...] (Patient not taking: Reported on 03/14/2025) Walker [facility] Walker with wheels and a seat Dx: [...] taking: Reported on 03/14/2025) Miscellaneous Medical Supply [facility] Boost Max 1 can twice daily Calcium [...] ER Latex (more content not included)... Normal [facility] Comprehensive metabolic 2000 panelon 03-14-2025 Albumin [Mass/Vol] 4.6 g/dL Normal 3.9-4.9 [facility] Comment on above: Order Comment: Speci men Type: BLOOD SPECIMEN Ordering Facility: [facility] Address: [address] [place] [address] Performed By: #### L IPNF, 93646-3, 13056-0, 3051-0 #### [facility] CLIA [id number] [address] [place] [address] [place] ALP [Catalytic activity/Vol] 86 U/L Normal 34-123 [facility] Comment on above: Order Comment: Speci men Type: BLOOD SPECIMEN Ordering Facility: [facility] Address: [address] [place] [address] Performed By: #### L IPNF, 06823-5, 44820-2, 3051-0 #### [facility] CLIA [id number] [address] [place] [address] [place] ALT [Catalytic activity/Vol] 13 U/L Normal 7-38 [facility] Comment on above: Order Comment: Speci men Type: BLOOD SPECIMEN Ordering Facility: [facility] Address: [address] [place] [address] Performed By: #### L IPNF, 15241-0, 95580-1, 3051-0 #### [facility] CLIA [id number] [address] [place], [place] [address] [place] Anion gap [Moles/Vol] 11 mmol/L Normal 8-15 [facility] Comment on above: Order Comment: Speci men Type: BLOOD SPECIMEN Ordering Facility: [facility] Address: [address] [place], [place] [address] Performed By: #### L IPNF, 69444-8, 94371-2, 3051-0 #### [facility] CLIA [id number] [address] [place], [place] [address] [place] AST [Catalytic activity/Vol] 20 U/L Normal 13-35 [facility] Comment on above: Order Comment: Speci men Type: BLOOD SPECIMEN Ordering Facility: [facility] Address: [address] [place], [place] [address] Performed By: #### L IPNF, 84322-5, 94019-9, 3051-0 #### [facility] CLIA [id number] [address] [place] [address] [place] Bilirubin [Mass/Vol] 0.2 mg/dL Normal 0.2-1.3 [facility] Comment on above: Order Comment: Speci men Type: BLOOD SPECIMEN Ordering Facility: [facility] Address: [address] [place] [address] Performed By: #### L IPNF, 20698-6, 49709-3, 3051-0 #### [facility] CLIA [id number] [address] [place] [address] [place] Calcium [Mass/Vol] 9.6 mg/dL Normal 8.5-10.2 [facility] Comment on above: Order Comment: Speci men Type: BLOOD SPECIMEN Ordering Facility: [facility] Address: [address] [place], [place] [id number] Performed By: #### L IPNF, 92890-3, 55879-7, 3051-0 #### [facility] CLIA [id number] [address] [place], [place] [address] [place] Chloride [Moles/Vol] 100 mmol/L Normal 98-107 [facility] Comment on above: Order Comment: Speci men Type: BLOOD SPECIMEN Ordering Facility: [facility] Address: [address] [place] [address] Performed By: #### L IPNF, 03411-6, 23725-4, 3051-0 #### [facility] CLIA [id number] [address] [place] [address] [place] CO2 [Moles/Vol] 22 mmol/L Normal 22-30 [facility] Comment on above: Order Comment: Speci men Type: BLOOD SPECIMEN Ordering Facility: [facility] Address: [address] [place] [address] Performed By: #### L IPNF, 25438-3, 30570-0, 3051-0 #### [facility] CLIA [id number] [address] [place] [address] [place] Creatinine [Mass/Vol] 0.71 mg/dL Normal 0.58-0.96 [facility] Comment on above: Order Comment: Speci men Type: BLOOD SPECIMEN Ordering Facility: [facility] Address: [address] [place] [address] Performed By: #### L IPNF, 63540-8, 14343-0, 3051-0 #### [facility] CLIA [id number] [address] [place] [address] [place] Creatinine and Glomerular filtration rate.predicted panel (S/P/Bld) 86 mL/min/1.73m??? Normal >=60 [facility] Comment on above: Order Comment: Speci men Type: BLOOD SPECIMEN Ordering Facility: [facility] Address: [address] [place] [address] Result Comment: Renee mated Glomerular Filtration Rate [...] reflect actual GFR. Performed By: #### L IPNF, 60022-8, 09022-4, 3051-0 #### [facility] CLIA [id number] [address] [place] [address] [place] Glucose [Mass/Vol] 99 mg/dL Normal 74-99 [facility] Comment on above: Order Comment: Sandy jackson Type: BLOOD SPECIMEN Ordering Facility: [facility] Address: [address] [place] [address] Result Comment: The [place] [employer] (ADA) provides guidance for cutoff [...] Standards of Medical Care in Diabetes 2016, [place] [employer]. Diabetes Care. 2016.39(Suppl 1). Performed By: #### L IPNF, 61752-9, 75924-4, 3051-0 #### [facility] CLIA [id number] [address] [place] [address] [place] Potassium [Moles/Vol] 5.1 mmol/L Normal 3.7-5.1 [facility] Comment on above: Order Comment: Margoi men Type: BLOOD SPECIMEN Ordering Facility: [facility] Address: [address] [place] [address] Performed By: #### L IPNF, 06813-5, 00618-9, 3051-0 #### [facility] CLIA [id number] [address] [place] [address] [place] Protein [Mass/Vol] 7.5 g/dL Normal 6.3-8.0 [facility] Comment on above: Order Comment: Sandy jackson Type: BLOOD SPECIMEN Ordering Facility: [facility] Address: [address] [place] [address] Performed By: #### L IPNF, 52233-2, 64710-2, 3051-0 #### [facility] CLIA [id number] [address] [place] [address] [place] Sodium [Moles/Vol] 133 mmol/L Low 136-144 [facility] Comment on above: Order Comment: Speci men Type: BLOOD SPECIMEN Ordering Facility: [facility] Address: [address] [place] [address] Performed By: #### L IPNF, 69468-8, 93709-2, 3051-0 #### [facility] CLIA [id number] [address] [place] [address] [place] Urea nitrogen [Mass/Vol] 32 mg/dL High 7-21 [facility] Comment on above: Order Comment: Speci men Type: BLOOD SPECIMEN Ordering Facility: [facility] Address: [address] [place] [address] Performed By: #### L IPNF, 17358-0, 28114-9, 3051-0 #### [facility] CLIA [id number] [address] [place] [address] [place] Ferritin SerPl-mCncon 2024 Ferritin [Mass/Vol] 85.9 ng/mL Normal 14.7-205.1 [facility] Comment on above: Order Comment: Speci men Type: BLOOD SPECIMEN Ordering Facility: [facility] Address: [address] [place] [address] Performed By: #### 2 276-4, 3024-7, 3016-3 #### [facility] CLIA [id number] [address] [place] [address] [place] Iron and Iron binding capaci ty panelon 03-14-2025 Iron [Mass/Vol] 44 ug/dL Normal 41-186 [facility] Comment on above: Order Comment: Speci men Type: BLOOD SPECIMEN Ordering Facility: [facility] Address: [address] [place] [address] Performed By: #### L IPUCHE, 57229-5, 25168-7, 305-0 #### [facility] CLIA [id number] [address] [place] [address] [place] Iron binding capacity [Mass/Vol] 331 ug/dL Normal 232-386 [facility] Comment on above: Order Comment: Speci men Type: BLOOD SPECIMEN Ordering Facility: [facility] Address: [address] [place], [place] [id number] Performed By: #### L IPUCHE, 61983-9, 68451-7, 305-0 #### [facility] CLIA [id number] [address] [place], [place] [id number] [place] Iron/TIBC [Molar ratio] 13.3 % Low 15.0-57.0 C [facility] Comment on above: Order Comment: Speci men Type: BLOOD SPECIMEN Ordering Facility: [facility] Address: [address] [place], [place] [id number] Performed By: #### L BNIH, 87867-7, 57457-9, 305-0 #### [facility] CLIA [id number] [address] [place], [place] [id number] [place] LIPID PANEL, NONFASTINGon Cholesterol [Mass/Vol] 178 mg/dL Normal <200 [facility] Comment on above: Order Comment: Speci men Type: BLOOD SPECIMEN Ordering Facility: [facility] Address: [address] [place] [address] Result Comment: <200 mg/dL, Desirable 200-239 mg/dL, Borderline high >239 mg/dL, High Performed By: #### L IPNF, 52217-2, 09317-4, 3051-0 #### [facility] CLIA [id number] [address] [place] [address] [place] HDL CHOLESTEROL, NF 69 mg/dL Normal >39 [facility] Comment on above: Order Comment: Sandy jackson Type: BLOOD SPECIMEN Ordering Facility: [facility] Address: [address] [place] [address] Result Comment: 40-5 9 mg/dL, Acceptable >59 mg/dL, High: Negative risk factor for coronary heart disease <40 mg/dL, Low: Positive risk factor for coronary heart disease Performed By: #### L BINH, 09433-6, 05163-2, 3051-0 #### [facility] CLIA [id number] [address] [place] [address] LDL CHOLESTEROL CALCULATED, NF 92 mg/dL Normal <100 [facility] Comment on above: Order Comment: Margojer jackson Type: BLOOD SPECIMEN Ordering Facility: [facility] Address: [address] [place] [address] Result Comment: <100 mg/dL, Optimal 100-129 mg/dL, Near optimal/above optimal 130-159 mg/dL, Borderline high 160-189 mg/dL, High >189 mg/dL, Very high Secondary prevention optimal LDL Cholesterol levels are recommended to be <70 mg/dL LDL cholesterol is calculated using the Cat-NIH equation. Performed By: #### L BINH, 41063-5, 06372-8, 305-0 #### [facility] CLIA [id number] [address] [place] [address] [place] LDL/HDL RATIO, NF 1.33 mg/dL Normal <2.54 [facility] Comment on above: Order Comment: Sandy jackson Type: BLOOD SPECIMEN Ordering Facility: [facility] Address: [address] [place] [address] Result Comment: Refe rence: 1. National Cholesterol Education Program ATP III Guideline At-A-Glance Quick Desk Reference: National Heart, Lung, and Blood [place]. National Institutes of Health. 2001: NIH Publication No. 01-3305. 2. An International Atherosclerosis Society position paper: global recommendations for the management of dyslipidemia: executive summary, Atherosclerosis. 2014: 232(2):410-413. Performed By: #### L IPNF, 78354-7, 64501-4, 3051-0 #### [facility] CLIA [id number] [address] [place] [address] [place] NON HDL CHOL, NF 109 mg/dL Normal <130 [facility] Comment on above: Order Comment: Speci men Type: BLOOD SPECIMEN Ordering Facility: [facility] Address: [address] [place] [address] Result Comment: <130 mg/dL, Optimal 130-159 mg/dL, Near optimal/above optimal 160-189 mg/dL, Borderline high 190-219 mg/dL, High >219 mg/dL, Very high Secondary prevention optimal non HDL Cholesterol levels are recommended to be <100 mg/dL Performed By: #### L IPNF, 20582-9, 38437-7, 3051-0 #### [facility] CLIA [id number] [address] [place] [address] [place] T CHOL/HDL RATIO NF 2.58 mg/dL Normal <5.10 [facility] Comment on above: Order Comment: Speci men Type: BLOOD SPECIMEN Ordering Facility: [facility] Address: [address] [place] [address] Performed By: #### L IPNF, 43899-0, 87237-5, 3051-0 #### [facility] CLIA [id number] [address] [place] [address] [place] TRIGLYCERIDES, NF 96 mg/dL Normal <150 [facility] Comment on above: Order Comment: Speci men Type: BLOOD SPECIMEN Ordering Facility: [facility] Address: [address] [place] [address] Result Comment: <150 mg/dL, Normal 150-199 mg/dL, Borderline high 200-499 mg/dL, High >499 mg/dL, Very high Performed By: #### L IPNF, 89322-2, 92539-8, 3051-0 #### [facility] CLIA [id number] [address] [place] [address] [place] VLDL CHOLESTEROL, NF 15 mg/dL Normal <30 [facility] Comment on above: Order Comment: Speci men Type: BLOOD SPECIMEN Ordering Facility: [facility] Address: [address] [place] [address] Performed By: #### L IPNF, 36043-3, 23762-6, 3051-0 #### [facility] CLIA [id number] [address] [place] [address] [place] T3Free SerPl-mCncon 03-14-20 25 Free T3 [Mass/Vol] 2.4 pg/mL Normal 2.3-4.1 [facility] Comment on above: Order Comment: Speci men Type: BLOOD SPECIMENOrdering Facility: [facility] Address: [address] [place] [address] Performed By: #### L IPNF, 90761-0, 00585-3, 3051-0 ####[facility] [id number] [place] [address] [place] T4 Free SerPl-mCncon 025 Free T4 [Mass/Vol] 1.0 ng/dL Normal 0.9-1.7 [facility] Comment on above: Order Comment: Speci men Type: BLOOD SPECIMEN Ordering Facility: [facility] Address: [address] [place] [address] Performed By: #### 2 276-4, 3024-7, 3016-3 #### [facility] CLIA [id number] [address] [place] [address] [place] TSH SerPl-aCncon 03-14-2025 TSH Qn 2.490 m[IU]/L Normal 0.270-4.200 [facility] Comment on above: Order Comment: Speci men Type: BLOOD SPECIMEN Ordering Facility: [facility] Address: [address] [place] [address] Performed By: #### 2 276-4, 3024-7, 3016-3 #### [facility] CLIA [id number] [address] [place] [address] [place] CNOVon 07-13-2024 CNOV Office Visit (INTMWS) KATH ARRIAGA ([id number]) 1945 F [place] Date Time Provider Department 07/13/24 2:00 PM OLGA GAITAN INTMWS During your visit today, we recorded the following information about you: Pulse Blood pressure Weight 91/minute 144/80 91.2 kg Olga Gaitan APRN.REHABILITATION AIDE/SCHEDULER 07/13/2024 2:45 PM Signed SUBJECTIVE Kath Arriaga [...] 1 tablet by mouth as needed. Walker [facility] Walker with wheels and a seat Dx: [...] 2 cartons per day Miscellaneous Medical Supply [facility] Boost Max 1 can twice daily COMPOUNDED [...] ACTIVE PROBLEM LIST Coronary Artery Disease Involving [place] Coronary Artery of [place] Heart Without Angina Pectoris - 05/04/2020 Comment: [...] Current packs (more content not included)... Normal [facility] CBC W Auto Differential pane l (Bld)on 05-21-2022 Abs Immature Gran 0.03 k/uL <0.10 k/uL [facility] Basophils (Bld) [#/Vol] 0.04 10*3/uL <0.11 k/uL [facility] Basophils/100 WBC (Bld) 0.6 % C [facility] Differential cell count method Nom (Bld) Auto [facility] Eosinophils (Bld) [#/Vol] 0.13 10*3/uL <0.46 k/uL [facility] Eosinophils/100 WBC (Bld) 1.9 % [facility] Erythrocyte distribution width (RBC) [Ratio] 13.5 % 11.5 - 15.0 % [facility] Hematocrit (Bld) [Volume fraction] 41.0 % 36.0 - 46.0 % [facility] Hemoglobin (Bld) [Mass/Vol] 13.9 g/dL 11.5 - 15.5 g/dL [facility] Immature Gran % 0.4 % [facility] Lymphocytes (Bld) [#/Vol] 1.25 10*3/uL 1.00 - 4.00 k/uL [facility] Lymphocytes/100 WBC (Bld) 18.7 % [facility] MCH (RBC) [Entitic mass] 30.5 pg 26.0 - 34.0 pg [facility] MCHC (RBC) [Mass/Vol] 33.9 g/dL 30.5 - 36.0 g/dL [facility] MCV (RBC) [Entitic vol] 89.9 fL 80.0 - 100.0 fL [facility] Monocytes (Bld) [#/Vol] 0.52 10*3/uL <0.87 k/uL [facility] Monocytes/100 WBC (Bld) 7.8 % C [facility] Neutrophils (Bld) [#/Vol] 4.73 10*3/uL 1.45 - 7.50 k/uL [facility] Neutrophils/100 WBC (Bld) 70.6 % [facility] Nucleated RBC (Bld) [#/Vol] 10*3/uL <0.01 k/uL [facility] Nucleated RBC/100 WBC (Bld) [Ratio] 0.0 /100 WBC [facility] Platelet mean volume (Bld) [Entitic vol] 9.2 fL 9.0 - 12.7 fL [facility] Platelets (Bld) [#/Vol] 286 10*3/uL 150 - 400 k/uL [facility] RBC (Bld) [#/Vol] 4.56 10*6/uL 3.90 - 5.2 0 m/uL [facility] WBC (Bld) [#/Vol] 6.70 10*3/uL 3.70 - 11.00 k/uL [facility] Office Visit: Spine Visit- R sided low back painon 03-27-2017 Documentation of current medications (procedure) Done Invalid Interpretation Code [facility] Work Phone: Office Visit: Spine Visit- R sided low back painon 03-26-2017 Documentation of current medications (procedure) Done Invalid Interpretation Code [facility] Work Phone: Office Visit: Spine Visit- [...] Work Phone: Office Visit: Spine Visit NE Won 03-03-2017 Dietary management education, guidance, and counseling (procedure) yes Invalid Interpretation Code [facility] Work Phone: Tobacco smoking status NHIS Former smoker [facility] Work Phone: Tobacco use [facility] Former smoker Invalid Interpretation Code [facility] Work Phone: Office Visit: hx of invasive MRSA infections x 2 , impending prosth hipon 11-24-2013 Documentation of current medications (procedure) Done Invalid Interpretation Code [facility] Work Phone: Lab Report: LANDONRSVenkat 013 GE use only - for LinkLogic import when terms are not otherwise specified Negative Invalid Interpretation Code Negative [facility] Work Phone: LtMRSA Negative Negative [facility] Work Phone: Office Visit: MRSA facialj/R max sinus infection, week 5/6on 08-02-2013 Tobacco use [facility] never smoker Invalid Interpretation Code [facility] Work Phone: Lab Report: CECIDon 3 Erythrocytes (RBC) 4.03 10*6/uL Low 4.2-5.4 [facility] Work Phone: Hematocrit (HCT) 35.1 % Low 37-47 [facility] Work Phone: Hematocrit Volume Fraction (Bld) 35.1 % Low 37-47 [facility] Work Phone: Hemoglobin (HGB) 11.6 g/dL Low 12.0-15.0 [facility] Work Phone: Platelets 347 10*3/mm3 Normal 150-450 [facility] Work Phone: Platelets #/vol (Bld) 347 10*3/mm3 Normal 150-450 [facility] Work Phone: RBC #/vol (Bld) 4.03 10*6/uL Low 4.2-5.4 [facility] Work Phone: WBC #/vol (Bld) 6.1 10*3/uL Normal 4.4-11.0 [facility] Work Phone: WBC (Leukocytes) 6.1 10*3/uL Normal 4.4-11.0 [facility] Work Phone: Lab Report: SHELIAon 07-11-2013 Alanine aminotransferase (ALT) 18 U/L Normal 12-78 [facility] Work Phone: Albumin 3.6 g/dL Normal 3.4-5.0 [facility] Work Phone: Alkaline phosphatase (ALP) 223 U/L High 50-136 [facility] Work Phone: ALP enzyme act/vol (Bld) 223 U/L High 50-136 [facility] Work Phone: Aspartate aminotransferase (AST) 18 U/L Normal 15-37 [facility] Work Phone: Bilirubin (total) 0.60 mg/dL Normal 0.00-1.00 [facility] Work Phone: Calcium 8.8 mg/dL Normal 8.5-10.1 [facility] Work Phone: Chloride 98 mmol/L Normal 98-107 [facility] Work Phone: Creatinine 0.7 mg/dL Normal 0.6-1.0 [facility] Work Phone: Glucose 86 mg/dL Normal 70-110 [facility] Work Phone: Glucose mass conc 86 mg/dL Normal 70-110 [facility] Work Phone: Potassium 4.0 mmol/L Normal 3.5-5.1 [facility] Work Phone: Sodium 133 mmol/L Low 136-145 [facility] Work Phone: Urea nitrogen 18 mg/dL Normal 7-18 [facility] Work Phone: Vital Signs Date Time Vital Sign Value Performing Clinician Facility 05-11-2025 21:21-0400 Body temperature 98.6 [degF] Dr. Deb Tam MD Work Phone: [facility] 05-11-2025 21:21-0400 Diastolic blood pressure 78 mm[Hg] Dr. Deb Tam MD Work Phone: [facility] 05-11-2025 21:21-0400 Heart rate 90 /min Dr. Deb Tam MD Work Phone: [facility] 05-11-2025 21:21-0400 Respiratory rate 16 /min Dr. Deb Tam MD Work Phone: [facility] 05-11-2025 21:21-0400 SaO2% (BldA) [Mass fraction] 100 % Dr. Deb Tam MD Work Phone: [facility] 05-11-2025 21:21-0400 Systolic blood pressure 114 mm[Hg] Dr. Deb Tam MD Work Phone: [facility] 05-11-2025 16:54-0400 Body height 162.[address] Deb Tam MD Work Phone: [facility] 05-11-2025 16:54-0400 Body mass index (BMI) [Ratio] 36.5 kg/m2 Dr. Deb Tam MD Work Phone: 9(677)041-792198 [place] [address] 05-11-2025 16:54-0400 Body weight 96.[address] Deb Tam MD Work Phone: 6(795)451-282098 [place] [address] 05-08-2025 17:52-0400 Diastolic blood pressure 64 mm[Hg] Dr. Deb Tam MD Work Phone: 0(240)269-158398 [place] [address] 05-08-2025 17:52-0400 Heart rate 78 /min Dr. Deb Tam MD Work Phone: 8(101)401-246198 [place] [address] 05-08-2025 17:52-0400 Respiratory rate 16 /min Dr. Deb Tam MD Work Phone: 5(399)312-614298 [place] [address] 05-08-2025 17:52-0400 SaO2% (BldA) [Mass fraction] 98 % Dr. Deb Tam MD Work Phone: 0(936)020-303998 [place] [address] 05-08-2025 17:52-0400 Systolic blood pressure 141 mm[Hg] Dr. Deb Tam MD Work Phone: 6(624)023-734998 [place] [address] 05-08-2025 15:29-0400 Body temperature 98.4 [degF] Dr. Deb Tam MD Work Phone: 0(076)936-238998 [place] [address] 05-08-2025 13:58-0400 Body height 162.[address] Deb Tam MD Work Phone: 6(708)374-142598 [place] [address] 05-08-2025 13:58-0400 Body mass index (BMI) [Ratio] 35.7 kg/m2 Dr. Deb Tam MD Work Phone: 8(070)715-746598 [place] [address] 05-08-2025 13:58-0400 Body weight 94.[address] Deb Tam MD Work Phone: 9(567)848-492598 [place] [address] 03-14-2025 14:32-0400 Diastolic blood pressure 80 mm[Hg] Olga Divya WRAPPER STITCHER.REHABILITATION AIDE/SCHEDULER Work Phone: [facility] 03-14-2025 14:32-0400 Systolic blood pressure 144 mm[Hg] Olga Divya WRAPPER STITCHER.REHABILITATION AIDE/SCHEDULER Work Phone: [facility] 03-14-2025 14:23-0400 Body mass index (BMI) [Ratio] 34.52 kg/m2 Olga Divya WRAPPER STITCHER.REHABILITATION AIDE/SCHEDULER Work Phone: [facility] 03-14-2025 14:23-0400 Body weight 94.1 kg Olga Divya WRAPPER STITCHER.REHABILITATION AIDE/SCHEDULER Work Phone: [facility] 03-14-2025 14:23-0400 Heart rate 90 /min Olga Divya WRAPPER STITCHER.REHABILITATION AIDE/SCHEDULER Work Phone: [facility] 03-14-2025 14:23-0400 SaO2% (BldA) [Mass fraction] 97 % Olga Divya WRAPPER STITCHER.REHABILITATION AIDE/SCHEDULER Work Phone: [facility] 07-13-2024 13:48-0400 Diastolic blood pressure 80 mm[Hg] Olga Divya WRAPPER STITCHER.REHABILITATION AIDE/SCHEDULER Work Phone: [facility] 07-13-2024 13:48-0400 Systolic blood pressure 144 mm[Hg] Olga Divya WRAPPER STITCHER.REHABILITATION AIDE/SCHEDULER Work Phone: [facility] 07-13-2024 13:46-0400 Body mass index (BMI) [Ratio] 33.46 kg/m2 Olga Divya WRAPPER STITCHER.REHABILITATION AIDE/SCHEDULER Work Phone: [facility] 07-13-2024 13:46-0400 Body weight 91.2 kg Olga Divya WRAPPER STITCHER.REHABILITATION AIDE/SCHEDULER Work Phone: [facility] 07-13-2024 13:46-0400 Heart rate 91 /min Olga Divya WRAPPER STITCHER.REHABILITATION AIDE/SCHEDULER Work Phone: [facility] 07-13-2024 13:46-0400 SaO2% (BldA) [Mass fraction] 96 % Olga Divya WRAPPER STITCHER.REHABILITATION AIDE/SCHEDULER Work Phone: [facility] 09-02-2022 14:42-0500 Body temperature 97.81 [degF] Grisel Older WRAPPER STITCHER.REHABILITATION AIDE/SCHEDULER Work Phone: [facility] 09-02-2022 14:42-0500 Body weight 97.52 kg Grisel Older WRAPPER STITCHER.REHABILITATION AIDE/SCHEDULER Work Phone: [facility] 09-02-2022 14:42-0500 Diastolic blood pressure 72 mm[Hg] Grisel Older WRAPPER STITCHER.REHABILITATION AIDE/SCHEDULER Work Phone: [facility] 09-02-2022 14:42-0500 Heart rate 93 /min Grisel Older WRAPPER STITCHER.REHABILITATION AIDE/SCHEDULER Work Phone: [facility] 09-02-2022 14:42-0500 SaO2% (BldA) [Mass fraction] 98 % Grisel Older WRAPPER STITCHER.REHABILITATION AIDE/SCHEDULER Work Phone: [facility] 09-02-2022 14:42-0500 Systolic blood pressure 104 mm[Hg] Grisel Older WRAPPER STITCHER.REHABILITATION AIDE/SCHEDULER Work Phone: [facility] 05-21-2022 10:36-0400 Body weight 96.62 kg Jaja Kirkpatrick WRAPPER STITCHER.INSERTING OPERATOR Work Phone: [facility] 05-21-2022 10:36-0400 Diastolic blood pressure 80 mm[Hg] Jaja Kirkpatrick WRAPPER STITCHER.INSERTING OPERATOR Work Phone: [facility] 05-21-2022 10:36-0400 Heart rate 91 /min Jaja Kirkpatrick WRAPPER STITCHER.INSERTING OPERATOR Work Phone: [facility] 05-21-2022 10:36-0400 Respiratory rate 18 /min Jaja Kirkpatrick WRAPPER STITCHER.INSERTING OPERATOR Work Phone: [facility] 05-21-2022 10:36-0400 SaO2% (BldA) [Mass fraction] 95 % Jaja Kirkpatrick WRAPPER STITCHER.INSERTING OPERATOR Work Phone: [facility] 05-21-2022 10:36-0400 Systolic blood pressure 132 mm[Hg] Jaja Kirkpatrick WRAPPER STITCHER.INSERTING OPERATOR Work Phone: [facility] 03-03-2017 13:39-0400 BMI (Body Mass Index) 33.44 kg/m2 Daisy Jha DC [facility] Work Phone: 03-03-2017 13:39-0400 Body weight 91.17 kg Daisy Morelsi DC [facility] Work Phone: 03-03-2017 13:39-0400 BP Diastolic 79 mm[Hg] Daisy Dossi DC [facility] Work Phone: 03-03-2017 13:39-0400 BP Systolic 124 mm[Hg] Daisy Dossi DC [facility] Work Phone: 03-03-2017 13:39-0400 Weight 91.17 kg Daisy Morelsi DC [facility] Work Phone: 11-24-2013 13:06-0500 BMI (Body Mass Index) 35.59 kg/m2 [facility] Work Phone: 11-24-2013 13:06-0500 Body Temperature 96.8 [degF] Berta [facility] Work Phone: 11-24-2013 13:06-0500 BP Diastolic 82 mm[Hg] Berta [facility] [facility] Work Phone: 11-24-2013 13:06-0500 BP Systolic 131 mm[Hg] Berta [facility] Work Phone: 11-24-2013 13:06-0500 Pulse (Heart Rate) 78 /min Berta [facility] Work Phone: 11-24-2013 13:06-0500 Pulse Oximetry 97 % Berta [facility] Work Phone: 11-24-2013 13:06-0500 Respiratory Rate 18 /min Berta [facility] Work Phone: 11-24-2013 13:06-0500 Weight 96.66 kg Berta [facility] Work Phone: 08-02-2013 16:02-0400 Height 165.1 cm Berta Isaac [facility] Work Phone: Encounters Encounter Date Encounter Type Care Provider Facility Start: 05-11-2025 Evaluation and management of inpatient Ifeanyi Shaikh Facility:[facility] Start: 05-10-2025 End: 05-10-2025 Refill Deb Tam MD Work Phone: [facility] [place] Comment on above: Refill Request Start: 05-08-2025 End: 05-08-2025 Emergency department patient visit Dr. Deb Tam MD Work Phone: -Emergency Department Work Phone: Start: 04-12-2025 End: 04-13-2025 Refill Deb Tam MD Work Phone: [facility] [place] Comment on above: Refill Request Start: 03-28-2025 End: 03-29-2025 Follow-up encounter Olga Gaitan WRAPPER STITCHER.REHABILITATION AIDE/SCHEDULER Work Phone: [facility] [place] Start: 03-14-2025 End: 03-14-2025 ambulatory OLGA DIVYA Facility:[facility] Start: 03-14-2025 End: 03-14-2025 Patient encounter procedure Olga Greener WRAPPER STITCHER.REHABILITATION AIDE/SCHEDULER Work Phone: [facility] [place] Comment on above: Generalized OA (Prim chrissie Dx); Fall, initial encounter; Acquired hypothyroidism; Essential hypertension; Mixed hyperlipidemia; Vitamin D deficiency; Encounter for immunization Start: 03-14-2025 End: 03-14-2025 ambulatory OLGA GAITAN Facility:[facility] Start: 02-21-2025 End: 02-21-2025 Refill Deb Tam MD Work Phone: [facility] [place] Comment on above: Refill Request Start: 12-20-2024 End: 12-20-2024 Refill Deb Tam MD Work Phone: [facility] [place] Comment on above: Refill Request Start: 11-09-2024 End: 11-09-2024 Refill Deb Tam MD Work Phone: [facility] [place] Comment on above: Refill Request Start: 07-13-2024 End: 07-13-2024 ambulatory OLGA GAITAN Facility:[facility] Start: 07-13-2024 End: 07-13-2024 Patient encounter procedure Olga Gaitan WRAPPER STITCHER.REHABILITATION AIDE/SCHEDULER Work Phone: [facility] [place] Comment on above: Essential hypertensi on (Primary Dx); Acquired hypothyroidism; Vitamin D deficiency; Mixed hyperlipidemia; Iron deficiency anemia, unspecified iron deficiency anemia type; Generalized OA; Need for influenza vaccination; Need for COVID-19 vaccine; Encounter for screening examination for other mental health and behavioral disorders; Encounter for therapeutic drug monitoring Start: 05-10-2024 Refill Deb rivero MD Work Phone: [facility] [place] Comment on above: Refill Request Start: 04-02-2024 Refill Deb rivero MD Work Phone: [facility] [place] Comment on above: Refill Request Start: 03-10-2024 Telephone encounter Deb small MD Work Phone: [facility] [place] Comment on above: patient update/futur e apt Start: 02-24-2024 Refill Deb rivero MD Work Phone: [facility] [place] Comment on above: Refill Request Start: 01-26-2024 Refill Deb rivero MD Work Phone: [facility] [place] Comment on above: Refill Request Start: 12-29-2023 Refill Farhan read DO Work Phone: [facility] [place] Comment on above: Refill Request Start: 12-18-2023 Telephone encounter Deb small MD Work Phone: Pediatrics [place] Comment on above: Orders Start: 12-01-2023 Telephone encounter Deb small MD Work Phone: [facility] Start: 09-29-2023 Refill Deb rivero MD Work Phone: Family [facility] [place] Comment on above: Refill Request Start: 06-23-2023 Refill Olga Gaitan WRAPPER STITCHER.REHABILITATION AIDE/SCHEDULER Work Phone: [facility] [place] Comment on above: Refill Request Start: 06-02-2023 Refill Olga Gaitan WRAPPER STITCHER.REHABILITATION AIDE/SCHEDULER Work Phone: [facility] [place] Comment on above: Refill Request Start: 05-28-2023 Refill Deb rivero MD Work Phone: [address] [place] [address] Comment on above: Refill Request Start: 05-08-2023 Refill Deb rivero MD Work Phone: [facility] [place] Comment on above: Refill Request Start: 04-01-2023 Refill Deb rivero MD Work Phone: [facility] [place] Comment on above: Refill Request Start: 11-08-2022 Refill Deb rivero MD Work Phone: [facility] [place] Comment on above: Refill Request Start: 09-02-2022 End: 09-02-2022 Patient encounter procedure Griselnadine Barry WRAPPER STITCHER.REHABILITATION AIDE/SCHEDULER Work Phone: [facility] [place] Comment on above: Partial thickness bu rn of lower extremity, right, initial encounter (Primary Dx) Start: 08-30-2022 Telephone encounter Deb small MD Work Phone: [facility] [place] Comment on above: Patient Update Start: 05-21-2022 End: 05-21-2022 Patient encounter procedure Jaja Kirkpatrick WRAPPER STITCHER.INSERTING OPERATOR Work Phone: [facility] [place] Comment on above: Encounter for immuni zation (Primary Dx); Mixed hyperlipidemia; Dysmetabolic syndrome X; Vitamin D deficiency; Acquired hypothyroidism; Essential hypertension; Peptic ulcer; 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 Yi Tam MD Work Phone: [facility] Procedures Date Procedure Procedure Detail Performing Clinician Start: 05-11-2025 Urnls dip stick/tabl et reagent auto microscopy Dr. Deb Tam MD Work Phone: Start: 05-11-2025 CT of head without contrast Dr. Deb Tam MD Work Phone: Start: 05-11-[address] Deb Tam MD Work Phone: Start: 05-11-2025 Total iron binding c apacity measurement Dr. Deb Tam MD Work Phone: Start: 05-08-2025 Plain X-ray of shoulder Dr. Deb Tam MD Work Phone: Start: 07-13-2024 PFIZER-BIONTECH COVI D-19 VACCINE AGE 12+ YR Olga Gaitan APRN.REHABILITATION AIDE/SCHEDULER Work Phone: Start: 03-27-2017 End: 03-27-2017 Documentation of current medications Daisy Dossi DC Start: 03-27-2017 End: 03-27-2017 Chiropractic manipulation Daisy B Dossi DC Work Phone: Start: 03-26-2017 End: 03-27-2017 Chiropractic manipulation Daisy B Dossi DC Work Phone: Start: 03-11-2017 End: 03-11-2017 Documentation of current medications Daisy Dossi DC Start: 03-11-2017 End: 03-11-2017 Chiropractic manipulation Daisy B Dossi DC Work Phone: Start: 03-10-2017 End: 03-10-2017 Chiropractic manipulation Daisy B Dossi DC Work Phone: Start: 03-05-2017 End: 03-06-2017 [...] Author Start: 03-14-2028 Diabetes Screening Diabetes Screening [facility] Start: 10-28-2026 Diabetes Screening Diabetes Screening [facility] Start: 03-14-2026 Hepatitis B surface antibody level LDL Cholesterol [facility] Start: 12-27-2025 Anxiety Screening Anxiety Screening [facility] Start: 07-13-2025 Annual PCP Team Chronic Disease Visit Annual PCP Team Chronic Disease Visit [facility] Start: 06-27-2025 Influenza vaccination Influenza Vaccine (#1) [facility] Start: 05-21-2025 DIABETES SCREEN DIABETES SCREEN [facility] Start: 05-21-2025 Diabetes Screening Diabetes Screening [facility] Start: 05-16-2025 End: 05-16-2025 Patient encounter procedure 05/16/2025 1:40 PM EDT Office Visit [facility] [place] [address] [place] [address] Jaja Kirkpatrick APRN.INSERTING OPERATOR [address] [place] [address] 2 month follow up [facility] [place] Comment on above: 2 month follow up Start: 05-11-2025 Computed tomography of abdomen and pelvis with intravenous contrast Abdomen/Pelvis W IV Cont ONLY [facility] Start: 05-11-2025 CT Abdomen and Pelvis W contrast IV [facility] Start: 05-11-2025 Measurement of occult blood in stool specimen using immunoassay [facility] Start: 05-11-2025 Osmolality measurement, serum [facility] Start: 05-11-2025 Osmolality of Urine [facility] Start: 05-11-2025 Verification routine [facility] Start: 05-11-2025 Admission procedure [facility] Start: 05-11-2025 Hospital admission, emergency, from emergency room, medical nature [facility] Start: 05-11-2025 [facility] Start: 05-11-2025 Consultation [facility] Start: 05-11-2025 End: 05-11-2025 [facility] Start: 05-11-2025 Thyroid stimulating hormone measurement [facility] Start: 05-11-2025 Bacteria identified in Blood by Culture Blood Culture [facility] Start: 05-08-2025 [facility] Start: 03-14-2025 End: 03-14-2025 Patient encounter procedure 03/14/2025 2:00 PM EDT Office Visit [facility] [place] [address] [facility] [place] [address] Olga aGitan APRN.REHABILITATION AIDE/SCHEDULER [address] [place] [address] 6m f/u [facility] [place] Comment on above: 6m f/u Start: 02-01-2025 End: 02-01-2025 Patient encounter procedure 02/01/2025 2:00 PM EDT Office Visit [facility] [place] [address] [facility] [place] [address] Olga Gaitan APRN.REHABILITATION AIDE/SCHEDULER [address] [place] [address] 6m f/u [facility] [place] Comment on above: 6m f/u Start: 01-10-2025 End: 01-10-2025 Patient encounter procedure 01/10/2025 4:20 PM EDT Office Visit [facility] [place] [address] [facility] [place] [address] Deb Tam MD [address] [place] [address] 6 month follow up [facility] [place] Comment on above: 6 month follow up Start: 01-10-2025 Covid-19 Vaccine () Covid-19 Vaccine () [facility] Start: 12-27-2024 End: 03-28-2025 25-hydroxyvitamin D3 [Mass/volume] in Serum or Plasma VITAMIN D 25 HYDROXY Lab Routine Vitamin D deficiency Expected: 12/27/2024, Expires: 03/28/2025 [facility] Comment on above: Expected: 12/27/2024, Expires: Start: 12-27-2024 End: 03-28-2025 CBC W Auto Differential panel - Blood COMPLETE BLOOD COUNT AND DIFFERENTIAL Lab Routine Encounter for therapeutic drug monitoring Iron deficiency anemia, unspecified iron deficiency anemia type Expected: 12/27/2024, Expires: 03/28/2025 [facility] Work Phone: Comment on above: Expected: 12/27/2024, Expires: Start: 12-27-2024 End: 03-28-2025 Comprehensive metabolic 2000 panel - Serum or Plasma COMPREHENSIVE METABOLIC PANEL Lab Routine Encounter for therapeutic drug monitoring Expected: 12/27/2024, Expires: 03/28/2025 [facility] Comment on above: Expected: 12/27/2024, Expires: Start: 12-27-2024 End: 03-28-2025 Ferritin [Mass/volume] in Serum or Plasma FERRITIN Lab Routine Iron deficiency anemia, unspecified iron deficiency anemia type Expected: 12/27/2024, Expires: 03/28/2025 [facility] Comment on above: Expected: 12/27/2024, Expires: Start: 12-27-2024 End: 03-28-2025 Iron and Iron binding capacity panel - Serum or Plasma IRON AND TIBC Lab Routine Iron deficiency anemia, unspecified iron deficiency anemia type Expected: 12/27/2024, Expires: 03/28/2025 [facility] Comment on above: Expected: 12/27/2024, Expires: Start: 12-27-2024 End: 03-28-2025 LIPID PANEL, NONFASTING LIPID PANEL, NONFASTING Lab Routine Mixed hyperlipidemia Expected: 12/27/2024, Expires: 03/28/2025 [facility] Comment on above: Expected: 12/27/2024, Expires: Start: 12-27-2024 End: 03-28-2025 Thyrotropin [Units/volume] in Serum or Plasma THYROID STIMULATING HORMONE Lab Routine Acquired hypothyroidism Expected: 12/27/2024, Expires: 03/28/2025 [facility] Comment on above: Expected: 12/27/2024, Expires: Start: 12-27-2024 End: 03-28-2025 Thyroxine (T4) free [Mass/volume] in Serum or Plasma T4 FREE/FREE THYROXINE Lab Routine Acquired hypothyroidism Expected: 12/27/2024, Expires: 03/28/2025 [facility] Comment on above: Expected: 12/27/2024, Expires: Start: 12-27-2024 End: 03-28-2025 Triiodothyronine (T3) Free [Mass/volume] in Serum or Plasma T3, FREE Lab Routine Acquired hypothyroidism Expected: 12/27/2024, Expires: 03/28/2025 [facility] Comment on above: Expected: 12/27/2024, Expires: Start: 10-28-2024 Annual PCP Team Chronic Disease Visit Annual PCP Team Chronic Disease Visit [facility] Start: 10-28-2024 Hepatitis B surface antibody level LDL Cholesterol [facility] Start: 10-27-2024 Advance Directive Discussion Advance Directive Discussion [facility] Start: 10-27-2024 Medicare Advantage Annual Wellness Visit Medicare Advantage Annual Wellness Visit [facility] Start: 07-13-2024 End: 07-13-2024 Patient encounter procedure 07/13/2024 2:00 PM EDT Office Visit [facility] [place] [address] [place] [id number] Olga Gaitan APRN.REHABILITATION AIDE/SCHEDULER [address] [place], [place] [address] follow up hypertension/med check [facility] [place] Comment on above: follow up hypertension/med check Start: 06-27-2024 Influenza vaccination Influenza Vaccine (#1) [facility] Start: 03-26-2024 End: 03-26-2024 Patient encounter procedure 03/26/2024 3:40 PM EDT Office Visit [facility] [place] [address] [place] [address] Deb Tam MD [address] [place] [address] follow up [facility] [place] Comment on above: follow up Start: 03-22-2024 DIABETES SCREEN DIABETES SCREEN [facility] Start: 02-26-2024 Covid-19 Vaccine () Covid-19 Vaccine () [facility] Start: 10-27-2023 SHINGRIX VACCINE (1 of 2) SHINGRIX VACCINE (1 of 2) [facility] Comment on above: Postponed from 1993 (Insurance Cov erage) Start: 10-27-2023 Urine microalbumin profile [facility] Comment on above: Postponed from 11/23/2013 (Insurance Cov erage) Start: 09-02-2023 ANNUAL PCP TEAM CHRONIC DISEASE VISIT ANNUAL PCP TEAM CHRONIC DISEASE VISIT [facility] Start: 09-02-2023 BP CONTROLLED (<130/80) BP CONTROLLED (<130/80) [facility] in Start: 06-27-2023 Covid-19 Vaccine () Covid-19 Vaccine () [facility] Start: 06-27-2023 Influenza vaccination [facility] Start: 05-21-2023 BP CONTROLLED (<130/80) BP CONTROLLED (<130/80) [facility] Start: 05-21-2023 Hepatitis B surface antibody level LDL CHOLESTEROL [facility] Start: 05-18-2023 COVID-19 VACCINE (5 - Pfizer series) COVID-19 VACCINE (5 - Pfizer series) [facility] Start: 10-27-2022 ADVANCE DIRECTIVE DISCUSSION ADVANCE DIRECTIVE DISCUSSION [facility] Start: 09-21-2022 COVID-19 VACCINE (4 - Booster for Pfizer series) COVID-19 VACCINE (4 - Booster for Pfizer series) [facility] Start: 07-16-2022 COVID-19 VACCINE (4 - Booster for Pfizer series) COVID-19 VACCINE (4 - Booster for Pfizer series) [facility] Start: 06-27-2022 Influenza vaccination [facility] Start: 06-05-2022 ANNUAL PCP TEAM CHRONIC DISEASE VISIT ANNUAL PCP TEAM CHRONIC DISEASE VISIT [facility] Start: 06-05-2022 SHINGRIX VACCINE (1 of 2) SHINGRIX VACCINE (1 of 2) [facility] Comment on above: Postponed from 1993 (Insurance Cov erage) Start: 06-05-2022 Urine microalbumin profile DTAP,TDAP,TD (1 - Tdap) [facility] Comment on above: Postponed from 11/23/2013 (Insurance Cov erage) Start: 05-21-2022 End: 07-21-2022 Comprehensive metabolic 2000 panel - Serum or Plasma [facility] Work Phone: Comment on above: Expected: 05/21/2022, Expires: 2 Start: 05-21-2022 End: 07-21-2022 Hemoglobin A1c in Blood [facility] Work Phone: Comment on above: Expected: 05/21/2022, Expires: 2 Start: 05-21-2022 End: 07-21-2022 Lipid 1996 panel - Serum or Plasma [facility] Work Phone: Comment on above: Expected: 05/21/2022, Expires: 2 Start: 05-21-2022 End: 07-21-2022 Magnesium [Mass/volume] in Serum or Plasma [facility] Work Phone: Comment on above: Expected: 05/21/2022, Expires: 2 Start: 05-21-2022 End: 07-21-2022 Thyrotropin [Units/volume] in Serum or Plasma [facility] Work Phone: Comment on above: Expected: 05/21/2022, Expires: 2 Start: 05-21-2022 End: 07-21-2022 Thyroxine (T4) free [Mass/volume] in Serum or Plasma [facility] Work Phone: Comment on above: Expected: 05/21/2022, Expires: 2 Start: 10-27-2021 ADVANCE DIRECTIVE DISCUSSION ADVANCE DIRECTIVE DISCUSSION [facility] Start: 07-29-2021 COVID-19 VACCINE (3 - Booster for Pfizer series) COVID-19 VACCINE (3 - Booster for Pfizer series) [facility] Start: 05-04-2021 Hepatitis B surface antibody level LDL CHOLESTEROL [facility] Start: 2018 RSV Vaccine (1 - 1-dose 75+ series) RSV Vaccine (1 - 1-dose 75+ series) [facility] Start: 03-27-2017 End: 03-27-2017 Appointment Appointment [facility] Work Phone: Start: 03-27-2017 End: 03-27-2017 Appointment Appointment [facility] Work Phone: Start: 03-26-2017 End: 03-26-2017 Appointment Appointment [facility] Work Phone: Start: 03-26-2017 End: 03-26-2017 [...] up Appt 2x/week Follow up Appt 2x/week [facility] Work Phone: Start: 03-10-2017 End: 03-10-2017 Appointment Appointment [facility] Work Phone: Start: 03-10-2017 End: 03-10-2017 Appointment Appointment [facility] Work Phone: Start: 03-10-2017 End: 03-10-2017 Follow up Appt 3x/week Follow up Appt 3x/week [facility] Work Phone: Start: 03-05-2017 End: 03-06-2017 Follow up Appt 2x/week Follow up Appt 2x/week [facility] Work Phone: Start: 03-03-2017 End: 03-03-2017 Appointment Appointment [facility] Work Phone: Start: 03-03-2017 End: 03-03-2017 Follow up Appt 3x/week Follow up Appt 3x/week [facility] Work Phone: Start: 11-23-2013 Urine microalbumin profile [facility] Start: 08-02-2013 End: 08-02-2013 Ct maxillofacial w/o dye CT Sinuses [employer] Work Phone: Start: 08-02-2013 End: 08-02-2013 MRSA presence *MRSAD - M R Staph Aureus DNA by PCR [facility] Work Phone: Start: 2003 RSV Vaccine (1 - 1-dose 60+ series) RSV Vaccine (1 - 1-dose 60+ series) [facility] Start: 1993 SHINGRIX VACCINE (1 of 2) SHINGRIX VACCINE (1 of 2) [facility] Start: 1961 Anxiety Screening Anxiety Screening [facility] Start: 1961 BP CONTROLLED (<130/80) BP CONTROLLED (<130/80) [facility] inic Folate [Moles/volume ] in Serum or Plasma [facility] Hemoglobin A1c/Hemoglobin.total in Blood [facility] Iron [Mass/mass] in Unspecified specimen [facility] Magnesium measurement [facility] Patient Education ED Fracture, Shoulder [facility] Work Phone: PFIZER-BIONTECH COVI D-19 VACCINE AGE 12+ YR (COMIRNATY) PFIZER-BIONTECH COVID-19 VACCINE AGE 12+ YR (COMIRNATY) Immunization/Injection Routine Encounter for immunization 1 Occurrences starting 03/14/2025 [facility] Work Phone: Comment on above: 1 Occurrences starting 03/14/2025 [facility] Immunizations Immunization Date Immunization Notes Care Provider Michelle lanza 07-13-2024 COVID-19 vaccine, ag e 12+ yr (PFIZER-BIONTECH) Olga Gaitan WRAPPER STITCHER.REHABILITATION AIDE/SCHEDULER Work Phone: [facility] 07-13-2024 influenza, high dose seasonal, preservative-free Olga Gaitan WRAPPER STITCHER.REHABILITATION AIDE/SCHEDULER Work Phone: [facility] 07-13-2024 influenza virus vacc ine, unspecified formulation Deb Tam MD Work Phone: [facility] 10-28-2023 COVID-19 vaccine, ag e 12+ yr, season (PFIZER-BIONTECH) Deb Tam MD Work Phone: [facility] 10-28-2023 influenza (HD-IIV4) vaccine, age 65+ yr, high dose, quadrivalent, PF (FLUZONE HIGH-DOSE) Deb Tam MD Work Phone: [facility] 10-28-2023 influenza virus vacc ine, unspecified formulation Deb Tam MD Work Phone: [facility] 01-16-2023 COVID-19 vaccine, ag e 12+ yr, bivalent (PFIZER-BIONTECH) Deb Tam MD Work Phone: [facility] Work Phone: 01-16-2023 influenza (HD-IIV4) vaccine, age 65+ yr, high dose, quadrivalent, PF (FLUZONE HIGH-DOSE) Deb Tam MD Work Phone: [facility] Work Phone: 01-16-2023 influenza virus vacc ine, unspecified formulation Deb Tam MD Work Phone: [facility] 05-21-2022 COVID-19 vaccine, ag e 12+ yr ([employer] [facility]) Jaja Kirkpatrick WRAPPER STITCHER.INSERTING OPERATOR Work Phone: [facility] 07-25-2020 influenza, high-dose , quadrivalent vaccine (FLUZONE HIGH DOSE QUADRIVALENT) Deb Tam MD Work Phone: [facility] Work Phone: 07-24-[address] Deb Tam MD Work Phone: [facility] 07-24-2020 influenza, seasonal, injectable, preservative free Deb Tam MD Work Phone: [facility] Work Phone: 07-29-2018 Seasonal trivalent influenza vaccine, adjuvanted, preservative free Deb Tam MD Work Phone: [facility] 07-27-[address] Deb Tam MD Work Phone: [facility] 07-27-2018 influenza, seasonal, injectable, preservative free Deb Tam MD Work Phone: [facility] Work Phone: 07-29-2017 influenza, injectabl e, quadrivalent, preservative free Olga Gaitan WRAPPER STITCHER.REHABILITATION AIDE/SCHEDULER Work Phone: [facility] 08-05-2016 influenza, high dose seasonal, preservative-free Deb Tam MD Work Phone: [facility] 09-06-2015 influenza, seasonal, injectable Deb Tam MD Work Phone: [facility] 08-21-2015 influenza, injectabl e, quadrivalent, preservative free Dr. Deb Tam MD Work Phone: [facility] 08-21-2015 influenza, seasonal, injectable, preservative free Deb Tam MD Work Phone: [facility] Work Phone: 07-11-2015 pneumococcal conjuga te vaccine, 13 valent Deb Tam MD Work Phone: [facility] 12-26-2014 pneumococcal conjuga te vaccine, 13 valent Deb Tam MD Work Phone: [facility] 09-03-2014 influenza, seasonal, injectable Deb Tam MD Work Phone: [facility] 11-22-2013 tetanus and diphther ia toxoids, adsorbed, preservative free, for adult use (2 Lf of tetanus toxoid and 2 Lf of diphtheria toxoid) Deb Tam MD Work Phone: [facility] 08-27-[address] Deb Tam MD Work Phone: [facility] 08-27-2013 influenza virus vacc ine, unspecified formulation Deb Tam MD Work Phone: [facility] Work Phone: 08-04-2012 influenza virus vacc ine, unspecified formulation Deb Tam MD Work Phone: [facility] 01-19-2012 pneumococcal polysaccharide vaccine, 23 valent Deb Tam MD Work Phone: [facility] 01-19-2012 pneumococcal vaccine , unspecified formulation Dr. Deb Tam MD Work Phone: [facility] 09-19-2010 influenza virus vacc ine, unspecified formulation Deb Tam MD Work Phone: [facility] Work Phone: 09-19-2010 pneumococcal polysaccharide vaccine, 23 valent Deb Tam MD Work Phone: [facility] Work Phone: 08-09-2009 influenza virus vacc ine, unspecified formulation Deb Tam MD Work Phone: [facility] Work Phone: 09-03-2005 influenza virus vacc ine, unspecified formulation Deb Tam MD Work Phone: [facility] Work Phone: Payers Date Payer Category Payer Self-pay 2021 Medicaid [id number] 2021 Medicare UHC MEDICARE MYC ARE [facility] MEDICARE [id number] 2021-Present [phone] [address] [place] [address] Medicare [id number] 2021 Medicare (Managed Care) [facility] MEDICARE [id number] 2021 Medicare [id number] 2019 Medicare [id number] 2013 Medicare [id number] 2013 Medicaid [id number] Unknown [id number] Unknown [id number] Social History Date Type Detail Facility Start: 03-27-2012 End: 05-11-2025 Tobacco smoking status NHIS Ex-smoker [facility] Work Phone: Start: 10-27-1962 End: 10-27-1982 History of tobacco use Current smoker [facility] Work Phone: Start: 10-27-1962 End: 10-27-1982 History of tobacco use Cigarette Smoker [facility] Work Phone: Start: 07-02-2021 End: 03-14-2025 Alcohol intake Current non-drinker of alcohol (finding) [facility] Start: 1945 Sex Assigned At Not on file C [facility] Start: 11-03-2021 End: 12-03-2021 Exposure to SARS-CoV-2 (event) Not sure [facility] Start: 03-27-2012 End: 10-28-2023 Cigarettes smoked current (pack per day) - Reported 1 [facility] Start: 03-27-2012 End: 03-14-2025 Tobacco use and exposure Smokeless tobacco non-user [facility] Start: 01-16-2023 End: 10-28-2023 Tobacco use panel [facility] National Score (1-10 0), lower number is lower risk 64 [facility] Start: 09-05-2022 Alcohol Alcohol [facility] Start: 11-08-2020 Drugs Drugs [facility] Start: 11-08-2020 Lives Lives [facility] Start: 11-08-2020 Tobacco Use Tobacco Use [facility] Start: 1945 Sex Assigned At Female [facility] Medical Equipment Procedure Code Equipment Code Equipment Origin al Text Equipment Identifier Dates Revision of uncemented total hip replacement 6.5MM LOW PROFILE HEX SCREW FDA Start: 08-11-2020 Revision of uncemented total hip replacement TRI II TRITAN MULTIHOLE ACET FDA Start: 08-11-2020 Revision of uncemented total hip replacement 6.5MM LOW PROFILE HEX SCREW FDA Start: 08-11-2020 Revision of uncemented total hip replacement 6.5MM LOW PROFILE HEX SCREW FDA Start: 08-11-2020 Revision of uncemented total hip replacement DALL MILES 2.0 BEAD CABLE FDA Start: 08-11-2020 Revision of uncemented total hip replacement LFIT V40 FEMORAL HEAD FDA Start: 08-11-2020 Revision of uncemented total hip replacement MDM LINER CEMENTLESS FDA Start: 08-11-2020 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 ADM/MDM [id number] FDA Start: 08-11-2020 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 MODULAR HIP SYSTEM FDA Start: 08-11-2020 Revision of uncemented total hip replacement MANDAEISM MODULAR HIP SYSTEM FDA Start: 08-11-2020 Revision of uncemented total hip replacement 6.5MM LOW PROFILE HEX SCREW FDA Start: 08-11-2020 Revision of uncemented total hip replacement TRI II TRITAN MULTIHOLE ACET FDA Start: 08-11-2020 Revision of uncemented total hip replacement 6.5MM LOW PROFILE HEX SCREW FDA Start: 08-11-2020 Revision of uncemented total hip replacement 6.5MM LOW PROFILE HEX SCREW FDA Start: 08-11-2020 Revision of uncemented total hip replacement DALL MILES 2.0 BEAD CABLE FDA Start: 08-11-2020 Revision of uncemented total hip replacement LFIT V40 FEMORAL HEAD FDA Start: 08-11-2020 Revision of uncemented total hip replacement MDM LINER CEMENTLESS FDA Start: 08-11-2020 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 ADM/MDM [id number] FDA Start: 08-11-2020 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 MODULAR HIP SYSTEM FDA Start: 08-11-2020 Revision of uncemented total hip replacement MANDAEISM MODULAR HIP SYSTEM FDA Start: 08-11-2020 6.5 HEX SCREW FDA Start: 08-02-2020 STEM FDA Start: 08-02-2020 latter day adm/ mdm x3 insert FDA Start: 08-02-2020 v40 femoral head FDA Start: 08-02-2020 6.5 MM HEX SCREW FDA Start: 08-02-2020 6.5MM HEX SCREW FDA Start: 08-02-2020 ACETABULAR WEDGE AUGMENT FDA Start: 08-02-2020 CEMENT,BONE JIM H 1/2 BATCH FDA Start: 08-02-2020 LINER FDA Start: 08-02-2020 MULTIHOLE ACETABULAR SHELL FDA Start: 08-02-2020 PLATE SCREW FDA Start: 08-02-2020 PLATE SCREW FDA Start: 08-02-2020 6.5 HEX SCREW FDA Start: 08-02-2020 STEM FDA Start: 08-02-2020 latter day adm/ mdm x3 insert FDA Start: 08-02-2020 v40 femoral head FDA Start: 08-02-2020 6.5 MM HEX SCREW FDA Start: 08-02-2020 6.5MM HEX SCREW FDA Start: 08-02-2020 ACETABULAR WEDGE AUGMENT FDA Start: 08-02-2020 CEMENT,BONE JIM H 1/2 BATCH FDA Start: 08-02-2020 LINER FDA Start: 08-02-2020 MULTIHOLE ACETABULAR SHELL FDA Start: 08-02-2020 PLATE SCREW FDA Start: 08-02-2020 PLATE SCREW FDA Start: 08-02-2020 Goals Date Patient Goal Desired Activity /State Personal health goal Functional Status Date Assessment Result Facility 04-11-2015 Are you deaf, or do you have serious difficulty hearing No 04/11/2015 11:44 AM Catherine Dominguez LPN No [facility] 04-11-2015 Do you have serious difficulty walking or climbing stairs No 04/11/2015 11:44 AM Catherine Dominguez LPN No [facility] 04-11-2015 Do you have difficul ty dressing or bathing No 04/11/2015 11:44 AM Catherine Dominguez LPN [facility] 04-11-2015 Because of a physica l, mental, or emotional condition, do you have difficulty doing errands alone such as visiting a physician's office or shopping No 04/11/2015 11:44 AM Catherine Dominguez LPN No [facility] 12-26-2014 Are you blind, or do you have serious difficulty seeing, even when wearing glasses No 12/26/2014 2:33 PM Catherine Gar LPN No [facility] Mental Status Date Assessment Result Facility 05-11-2025 Cognitive function Level Of Cons ciousness Awake;Alert;Appropriate [facility] Work Phone: 04-11-2015 Because of a physica l, mental, or emotional condition, do you have serious difficulty concentrating, remembering, or making decisions No 04/11/2015 11:44 AM Catherine Dominguez LPN [facility] Clinical Notes 01-03-2022 to 05-11-2025 Note Date & Type Note Facility 05-11-2025 Discharge summary [facility] 05-11-2025 Radiology Diagnostic study note [facility] Imaging Services [address] [place] [id number] Brain/Head without Contrast MR#: [id number] Acct: [id number] Name: KATH ARRIAGA Rep #: [id number] : 1945 F 79 From: Jason Godwin MD PCP: Dr. Deb Tam MD Status: RE G ER Study:Brain/Head without Contrast Date of Exa m: 05/11/25 Exam# [id number] Ordering Dr: Thuan Corrales DO PROCEDURE: BRAIN/HEAD WITHOUT CONTRAST 05/11/2025 REASON FOR EXAM: WEAKNESS TECHNIQUE: BRAIN/HEAD WITHOUT CONTRAST Coronal and Sagittal reconstruction series were provided. One or more dose reduction techniques were used (e.g., Automated exposure control, adjustment of the mA and/or kV according to patient size, use of iterative reconstruction technique. RADIATION DOSE SUMMARY: CTDlvol: 44.99 mGy DLP: 846.73 mGycm COMPARISON: None available. FINDINGS: No acute hemorrhage, extra-axial collection, mass effect or evidence of acute territorial infarct. Moderate-advanced generalized brain parenchymal volume loss, and chronic small-vessel ischemic changes throughout the supratentorial white matter. Small focus of probable old lacunar infarct in theright basal ganglia. Atherosclerotic vascular calcifications. Absent absentee-shawnee ocular lenses. Intact skull base and calvarium. Clear paranasal sinuses and mastoid air cells. CT/Brain/Head without Contrast IMPRESSION: 1. No evidence of acute intracranial pathology. 2. Moderate-advanced volume loss and chronic small-vessel ischemic changes. Reading Location: [id number] CC: Dr. Deb Tam MD; Dr. Virgil Corrales DO ~ Press Shop Supervisor: Signed [facility] 05-11-2025 Discharge summary Note Date/Time May 11, 2025 9:21pm [facility] Medical Records Department [address] [place] [address] Emergency Department Summary 05/11/25 MR#: [id number] Acct: [id number] Name: KATH ARRIAGA Rep #:[id number] : 1945 79 From: Virgil Martinez PCP: Dr. Deb Tam MD Status:AD M IN Location: MS3 [id number] [facility] History of Present Illness Chief Complaint: Weakness [facility] Medical History Atherosclerosis of coronary artery of absentee-shawnee heart without angina pectoris Obstructive sleep apnea Abnormal nuclear stress test Home Medications ?Medication ?Instructions ?Recorded ?Last Taken ?Type levothyroxine 75 mcg tablet 75 mcg PO DAILY thyroid 11/08/20 History losartan 50 mg tablet 50 mg PO DAILY bp 03/15/19 0 11/07/20 History diphenhydramine HCl 25 mg capsule 25 mg PO QDAY PRN al lergies 07/12/19 11/07/20 History (Benadryl) duloxetine 60 mg capsule,delayed 60 mg PO DAILY depres jovani 07/13/19 11/08/20 History release acetaminophen 500 mg tablet 1,000 mg PO Q8H PRN Pain 1 -10 Or 08/15/20 11/07/20 History Fever aspirin 81 mg chewable tablet 81 mg PO DAILY DVT Proph ylaxis 08/15/20 11/08/20 History calcium 500 mg (as 1 tab PO BIDCM 08/30/2010/27 Rx carbonate)-vitamin D3 5 mcg (200 unit) tablet esomeprazole magnesium 40 mg 40 mg PO 0600,1700 11/08/20 Rx capsule,delayed release ferrous sulfate 27 mg iron tablet 27 mg PO DAILY SUPPL EMENT 11/08/20 11/08/20 History meloxicam 15 mg tablet 15 mg PO DAILY PRN PRN Pain 1-10 11/08/20 11/08/20 History Or Fever pysgqlbh-pkwe-davy 8 mg-folic 400 1 tab PO DAILY SUPPL EMENT 11/08/20 11/08/20 History mcg-K 50 mcg-lutein 300 mcg tablet rosuvastatin 10 mg tablet 10 mg PO DAILY cholesterol # 90 tabs 05/06/24 Unknown Rx hydrocodone-acetaminophen 5-325mg 1 tab PO Q6H PRN PRN Pain 3 days 05/08/25 Unknown Rx 5mg-325mg #10 TABLETS cyanocobalamin (vitamin B-12) 3,000 mcg PO DAILY 05/11 Unknown History 1,000 mcg tablet,extended release (Vitamin B-12 ER) gabapentin 100 mg capsule 100 mg PO BID 05/11/25 Unkno wn History Allergy/AdvReac Type Severity Reaction Status Date / Time cat dander Allergy Intermediate nasal Verified 05/11/25 18:56 congestion ciprofloxacin (From Cipro) Allergy Hives Verified 05/11/25 18:56 ciprofloxacin HCl (From Allergy Hives Verified 05/11/25 18:56 Cipro) clindamycin Allergy Rash Verified 05/11/25 18:56 doxycycline Allergy Other Verified 05/11/25 18:56 latex Allergy Hives Verified 05/11/25 18:56 nitrofurantoin (From Allergy Other Verified 05/11/25 18:56 Macrobid) Penicillins Allergy Shortness Verified 05/11/25 18:56 of breath vortioxetine (From AdvReac Intermediate GI upset Verified 05/11/25 18:56 Brintellix) methotrexate AdvReac Unknown unknown Verified 05/11/25 18:56 trazodone AdvReac Other Verified 05/11/25 18:56 Family History Father , Hodgkin's age 29 Hodgkin disease Mother Lung cancer Surgical History S/P ORIF (open reduction internal fixation) fracture Hx of total knee replacement Status post total hip replacement, bilateral Stented coronary artery (07/16/19) Social History Smoking Status: Former smoker quit date: 10/27/82 pack-years: 20 EXAM Physical Exam Const Vital Signs: 05/11/25 16:54 05/11/25 17:40 05/11/25 18:53 Temperature 98.1 F Temperature Source Oral Pulse Rate 92 95 Respiratory Rate 18 12 Respiratory Effort Normal Respiratory Pattern Normal Blood Pressure 110/64 109/72 Blood Pressure Mean 79 84 Pulse Ox 99 99 Oxygen Delivery Method Room Air Room Air 05/11/25 19:00 05/11/25 19:15 05/11/25 19:30 Temperature Temperature Source Pulse Rate 95 93 91 Respiratory Rate 13 18 20 H Respiratory Effort Respiratory Pattern Blood Pressure 102/58 L 119/90 H Blood Pressure Mean 70 99 Pulse Ox 99 Oxygen Delivery Method Room Air 05/11/25 19:45 05/11/25 20:00 Temperature Temperature Source Pulse Rate 94 93 Respiratory Rate 13 15 Respiratory Effort Respiratory Pattern Blood Pressure Blood Pressure Mean Pulse Ox 99 100 Oxygen Delivery Method [facility] [place] Narrative Medical decision making narrative: HISTORY OF PRESENT ILLNESS: Chief complaint: weakness 79 F history of colitis, exacerbation, hyperlipidemia, CAD, hyponatremia, hypothyroidism, here with diffuse weakness, unable to care for self. Per patient she has been having more difficulty driving since breaking her dominant arm however she does not necessarily feel that she has to be admitted. Patient's cousin did have a horrible time with her because of excessive weaknesshas been going on for several weeks to months however was worsened acutely aftershe broke her arm. They states she needs to stay in the hospital because she cannot take care of herself. The patient is generally agreeable to admission and possible placement although she does not like it. She denies headache, chest pain, shortness of breath, cough, fever, abdominal pain, urinary complaints. Per the patient's family she survives on minimal food but does take a variety of supplements. REVIEW OF SYSTEMS: Pertinent positives: Diffuse weakness, right arm/shoulder pain Pertinent negatives: Chest pain, headache, vomiting, abdominal pain PHYSICAL EXAM: Nursing triage notes reviewed, Vital signs reviewed Constitutional: please see mdm HENT: MMM Eyes: Pupils equal round and reactive to light, Extraocular muscles intact Neck: No stridor, no JVD, full neck ROM Lungs: Clear to auscultation, No wheezing or rales. No increased work of breathing, no conversational dyspnea, no accessory muscle use, no nasal flaring. No respiratory distress noted Heart: Regular rate and rhythm, No murmurs, No rubs and No gallops, 2+ distal pulses (radial, femoral, posterior tibial) in all extremities Abdomen: Soft, there is no tenderness, rigidity, rebound or guarding, no obviousperitoneal signs, no palpable pulsatile abdominal masses, no auscultated abdominal bruit : No CVAT Extremities: No edema Neuro: No new focal neurological deficits, cranial nerves II through XII intact,5/5 strength in all present extremities. Intact sensation to light touch in all present extremities, 2+ reflexes bilateral patella tendons. Skin: No rash or lesions noted MEDICAL DECISION MAKING: Chief Complaint: please see HPI External records reviewed: Reviewed imaging studies. Reviewed x-ray from 05/08/2025 which showed proximal humerus fracture. Factors affecting care: As per HPI Social determinants of health: Elderly History obtained from others: Patient's family Consults: Internal medicine (Dr. Mace) [facility] Narrative: The patient was initially hemodynamically stable, afebrile and nontoxic-appearing. Initial exam with bruising about the right upper extremity consistent with humerus fracture. Upper extremity otherwise warm well-perfused and neurovascularly intact. No focal neurodeficits. No focal cardiopulmonary abnormalities. Abdomen soft and nontender I considered the following differential diagnosis: ICH, UTI, electrolyte disturbance, dehydration, metabolic or infectious encephalopathy, arrhythmia, ACS I obtained a broad lab and imaging evaluation to further determine if the patient was suffering from a life-threatening etiology. Initially treat the patient with 500 cc normal saline bolus ALL IMAGES (IF OBTAINED) HAVE BEEN PERSONALLY REVIEWED AND INTERPRETED BY MYSELF. EKG with normal sinus rhythm rate of 92, left axis deviation, normal intervals, no STEMI CBC with leukocytosis, baseline anemia, no thrombocytopenia VBG without evidence of acidemia however there is low bicarb consistent with metabolic acidosis found on CMP Lactate elevated concerning for endorgan hypoperfusion likely secondary to dehydration secondary to poor mobility, and failure to thrive Lipase is wnl indicating no pancreatic inflammation. CT scan of the brain negative for ICH High-sensitivity troponin is negative, no evidence of myocardial ischemia Upon re-evaluation the patient remained hemodynamically stable.. She is given 500 cc bolus. Patient is appropriate for admission given she cannot ambulate, show signs of dehydration and/or hypoperfusion elevated lactate as well as metabolic acidosis. She would benefit from hospitalization. Discussed hospitalist who agreed to admit the patient. Discussed the patients elevated white blood cell count and elevated lactate in the setting of no SIRS criteria, fever or definitive source of infection with hospitalist. Given leukocytosis elevated lactate I alexa blood cultures but did not start empiric antibiotics as I cannot find a definitive source of infection at this time. Will await cultures as an inpatient. The patient and/or family, caregivers express understanding. The patient and/orfamily, caregivers agrees with the plan. Shared decision making: I will have a discussion with the patient and or visitors regarding risk/benefits of further testing or admission. They will be made aware of of the risk/benefits inherent in this decision they will be given the opportunity to voice understanding. Total critical care time today provided was at least 0 minutes. This excludes separately billable procedures. Critical care time (if documented) is secondary to the patient having high probability of clinically significant/life threatening deterioration in the patient's condition which required my urgent intervention. Impression: 1. Adult failure to thrive 2. Ambulatory dysfunction 3. Dehydration 4. Elevated lactic acid level Dispo: Admit to [facility] This note was generated with [employer] dictation software. It may contain incorrectwords, spelling, and punctuation that were not noted in review of the chart prior to signing. Lab Data Labs: Laboratory Results - last 24 hr 05/11/25 05/11/25 05/11/25 17:31 18:12 19:44 WBC 11.5 H RBC 3.22 L Hgb 9.9 L Hct 30.3 L MCV 94.1 MCH 30.7 MCHC 32.7 RDW Std Deviation 48.0 H RDW Coeff of Papo 14.0 Plt Count 233 MPV 9.4 Immature Gran % (Auto) 0.300 Neut % (Auto) 83.7 H Lymph % (Auto) 7.0 L Tyler % (Auto) 8.4 Eos % (Auto) 0.3 Baso % (Auto) 0.3 Absolute Neuts (auto) 9.6 H Absolute Lymphs (auto) 0.81 L Nucleated RBC % 0 Sodium 129 L Potassium 3.9 Chloride 96 L Carbon Dioxide 15.6 L Anion Gap 17 H BUN 59 H Creatinine 1.22 H Estim Creat Clear Calc 40.78 L Est GFR (MDRD) Non-Af 45 L BUN/Creatinine Ratio 48.1 H Glucose 124 H Lactic Acid 3.2 H* Calcium 9.3 Total Bilirubin 0.52 AST 77 H ALT 32 Alkaline Phosphatase 86 Troponin T High Sens 26 H Total Protein 6.9 Albumin 3.9 Globulin 3.1 Albumin/Globulin Ratio 1.3 Lipase 29 Urine Color Straw Urine Clarity Cloudy Urine pH 5.0 Ur Specific [place] 1.020 Urine Protein 30 H Urine Glucose (UA) Normal Urine Ketones Negative Urine Occult Blood Negative Urine Nitrite Negative Urine Bilirubin Negative Urine Urobilinogen Normal Ur Leukocyte Esterase Negative Urine RBC 0 SEEN Urine WBC 0-5 SEEN Ur Squamous Epith Cells 0 SEEN Amorphous Sediment 1+ URATE Urine Bacteria 2+ Urine Mucus 0 SEEN ABG Data ABG results: ABG 05/11/25 19:57 Specimen Type JUDY Sample Site Not entered VBG pH 7.37 VBG pO2 138 H VBG HCO3 19 L VBG Total CO2 21 L VBG O2 Sat (Calc) 99 H VBG Base Excess -6 L POC Mix VBG pCO2 Pt Tmp 33.5 L O2 Delivery Device Not entered Radiography Diagnostic Testing: Clinical Impression(s) from Imaging Studies Brain CT 05/11/25 17:47 IMPRESSION: 1. No evidence of acute intracranial pathology. 2. Moderate-advanced volume loss and chronic small-vessel ischemic changes. Reading Location: [facility] Discharge Plan Triage Chief Complaint: Weakness ED Provider: Virgil Corrales Dx/Rx/DC Orders Primary Care Provider: Deb Tam What to do if you have Problems For any increased pain, shortness of breath, bleeding, nausea or vomiting, chestpain, or any unexpected problems, contact your Primary Care Provider. Call [facility] ([phone]) or report to the closest Emergency Room. Call 911 if necessary. 05/11/252120 <Electronically signed by Virgil Corrales DO> Cosigner Signature (if applicable): CC: Dr. Deb Tam MD ~ Signed [facility] Work Phone: [phone]) 808-788607-16-2025 Evaluation note* Diagnosis Onset Date Resolution Status Admit Date Elevated BUN acute May 11 025 8:45pm Generalized weakness acute May 11, 2025 8:45pm Hyponatremia acute May 11 025 8:45pm Lactic acidosis acute April 8:45pm Leukocytosis acute May 11 025 8:45pm Obesity (BMI 30-39.9) acute Apr 8:45pm SIADH (syndrome of inappropr iate ADH production) acute May 11, 2025 8:45pm Sleep apnea chronic May 11 8:45pm [facility] Work Phone: [phone] 187-569807-15-2025 Telephone encounter Note* Telephone Encounter - Olga Astudillo - 05/10/2025 2:23 PM EDT Prescription Refill Information The patient has been [...] Yes Requested Prescriptions Pending Prescriptions Disp Refills losartan (COZAAR) 50 mg tablet 90 tablet 1 Sig: Take 1 tablet by mouth once daily. Olga Troy May 10, 2025 2:23 PM [facility]07-15-2025 Miscellaneous Notes* Telephone Encounter - Olga Astudillo - 05/10/2025 2:23 PM EDT Prescription Refill Information The patient has been [...] Yes Requested Prescriptions Pending Prescriptions Disp Refills losartan (COZAAR) 50 mg tablet 90 tablet 1 Sig: Take 1 tablet by mouth once daily. Olga Troy May 10, 2025 2:23 PM [facility] Discharge summary [facility] Medical Records Department [address] [place] [address] Emergency Department Summary 05/08/25 MR#: [id number] Acct: [id number] Name: KATH ARRIAGA Rep #:[id number] : 1945 79 From: Kev Martinez PCP: Dr. Deb Tam MD Status:RE G ER Location: ED HPI History of Present Illness HPI Narrative: Patient presents after a fall that occurred today. Patient states she lost her balance. Patient states she has a history of vertigo and balance problems. Patient states she fell onto her right shoulder. Patient describes it as achingand worse with movement. Patient is nothing makes it better. Patient denies any head injury or loss of consciousness. Patient denies any paresthesias or weakness. Patient denies any other injuries. Chief Complaint: Fall Informant: patient Onset/Context/Timing Onset: Today Context: Sudden Onset Timing: Continuous Quality of Pain: Aching Location: Right shoulder and humerus Worsened by: Movement Relieved by: Nothing Associated Symptoms Associated Symptoms: Negative for Parasthesia, Weakness or Loss of Funtion [facility] Medical History (Updated 05/08/25 @ 14:[address] Kev Nelson, DO) Atherosclerosis of coronary artery of absentee-shawnee heart without angina pectoris Obstructive sleep apnea Abnormal nuclear stress test Home Medications ?Medication ?Instructions ?Recorded ?Last Taken ?Type levothyroxine 75 mcg tablet 75 mcg PO DAILY thyroid 11/08/20 History losartan 50 mg tablet 50 mg PO DAILY bp 03/15/19 0 11/07/20 History diphenhydramine HCl 25 mg capsule 25 mg PO QDAY PRN al lergies 07/12/19 11/07/20 History (Benadryl) zolpidem 10 mg tablet (Ambien) 10 mg PO QHS PRN Insomn ia 07/12/19 11/07/20 History duloxetine 60 mg capsule,delayed 60 mg PO DAILY depres jovani 07/13/19 11/08/20 History release acetaminophen 500 mg tablet 1,000 mg PO Q8H PRN Pain 1 -10 Or 08/15/20 11/07/20 History Fever aspirin 81 mg chewable tablet 81 mg PO BIDCM DVT Proph ylaxis 08/15/20 11/08/20 History calcium 500 mg (as 1 tab PO BIDCM 08/30/2010/27 Rx carbonate)-vitamin D3 5 mcg (200 unit) tablet esomeprazole magnesium 40 mg 40 mg PO 0600,1700 11/08/20 Rx capsule,delayed release ferrous sulfate 27 mg iron tablet 27 mg PO DAILY SUPPL EMENT 11/08/20 11/08/20 History meloxicam 15 mg tablet 15 mg PO DAILY PRN PRN Pain 1-10 11/08/20 11/08/20 History Or Fever yryxoodo-arwj-pnik 8 mg-folic 400 1 tab PO DAILY SUPPL EMENT 11/08/20 11/08/20 History mcg-K 50 mcg-lutein 300 mcg tablet cefdinir 300 mg capsule 300 mg PO Q12H #14 caps 10/27 04/16 Unknown Rx metronidazole 500 mg tablet 500 mg PO TID #21 tabs Unknown Rx clopidogrel 75 mg tablet 75 mg PO DAILY BLOOD THINNER #30 11/24/20 Unknown Rx tabs rosuvastatin 10 mg tablet 10 mg PO DAILY cholesterol # 90 tabs 05/06/24 Unknown Rx hydrocodone-acetaminophen 5-325mg 1 tab PO Q6H PRN PRN Pain 3 days 05/08/25 Unknown Rx 5mg-325mg #10 TABLETS Allergy/AdvReac Type Severity Reaction Status Date / Time cat dander Allergy Intermediate nasal Verified 11/08/20 15:36 congestion ciprofloxacin (From Cipro) Allergy Hives Verified 11/08/20 15:36 ciprofloxacin HCl (From Allergy Hives Verified 11/08/20 15:36 Cipro) clindamycin Allergy Rash Verified 11/08/20 15:36 doxycycline Allergy Other Verified 11/08/20 15:36 latex Allergy Hives Verified 11/08/20 15:36 nitrofurantoin (From Allergy Other Verified 11/08/20 15:36 Macrobid) Penicillins Allergy Shortness Verified 11/08/20 15:36 of breath vortioxetine (From AdvReac Intermediate GI upset Verified 11/08/20 15:36 Brintellix) methotrexate AdvReac Unknown unknown Verified 11/08/20 15:36 trazodone AdvReac Other Verified 11/08/20 15:36 Family History Father , Hodgkin's age 29 Hodgkin disease Mother Lung cancer Surgical History (Updated 05/08/25 @ 14:[address] 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, bilateral Stented coronary artery (07/16/19) Social History Smoking Status: Former smoker quit date: 10/27/82 pack-years: 20 ROS ROS ED Constitutional Constitutional ED: Denies chills or fever(s) Eyes Eyes: Denies blurry vision or change in vision ENT ENT ED: Denies rhinorrhea or sore throat Cardiovascular Cardiovascular: Denies chest pain or palpitations Respiratory/Chest Respiratory/Chest: Denies cough or dyspnea Gastrointestinal Gastrointestinal: Denies nausea or vomiting Genitourinary Genitourinary ED: Denies dysuria or hematuria Musculoskeletal Musculoskeletal: Denies back pain or neck pain Integumentary Denies abscess or rash Neurologic Neurologic: Denies headache(s) or weakness Allergic/Immunologic Allergic/Immunologic ED: Denies mouth swelling or urticaria EXAM Physical Exam Const Vital Signs: 05/08/25 13:52 05/08/25 13:54 05/08/25 13:58 Temperature 98.4 F 98.5 F Temperature Source Oral Oral Pulse Rate 92 90 Respiratory Rate 18 18 Respiratory Effort Normal Respiratory Depth Normal Respiratory Pattern Normal Blood Pressure 123/101 H 146/88 H Blood Pressure Mean 108 107 Pulse Ox 95 96 Oxygen Delivery Method Room Air Room Air Room Air Positive well nourished and well developed Constitutional Narrative: BMI is 35.8. General Appearance ED: well developed and NAD HEENT Reports moist mucous membranes Neck full ROM and supple Resp normal respiratory effort and clear to auscultation bilaterally Cardio regular rate and regular rhythm GI non-tender and non-distended Palpation: soft Extremity Extremity Narrative: There is tenderness to palpation over the right shoulder and proximal humerus. There is some edema noted. There is no deformity noted. Range of motion was limited in all motions of the right shouldersecondary to pain. There is no tenderness over the distal clavicle. Radial pulses are equal bilaterally. Sensation was intact to light touch in the radial, median, and ulnar areas. Strength is 5/5 inthe radial, median, and ulnar areas. Neuro oriented x3, CN's II-XII intact bilaterally, moves all extremities, no focal motor deficits and no sensory deficits noted Sensorium / Orientation: alert Motor Exam: strength 5/5 throughout Psych mental status grossly normal MDM MDM MDM Narrative Medical decision making narrative: Differential diagnosis includes fracture, sprain, and contusion. X-rays of the right shoulder will be obtained to assess for fracture and dislocation. Radiography Diagnostic Testing: X-rays of the right shoulder were obtained. There are 4 views. On my independent interpretation, there is a proximal humerus fracture. There is minimal displacement. There is some posterior angulation of the proximal fragment. Treatment and Re-Evaluation Narrative: Patient was advised of her findings. Patient was given a sling and swath. Patient was given a prescription for short course of Brigantine. Patient was instructed to use ice to the area. [facility]. Patient was instructed to return if worse in any way. Patient understood and was agreeable with the plan. All questions were answered. Upon discharge, patient told nurses that she did not feel she could get into herapartment with her sling and swath. Social work was consulted for possible homehealth or other resources for the patient. Discharge Plan Triage Chief Complaint: Fall ED Provider: Kev Nelson Dx/Rx/DC Orders Clinical Impression: Fracture of proximal humerus, Fall Instructions: ED Fracture, Shoulder Prescriptions: New hydrocodone-acetaminophen 5-325 mg tablet 1 tab PO Q6H PRN PRN (Reason: Pain) 3 Days Qty: 10 0RF No Action diphenhydramine HCl [Benadryl] 25 mg capsule 25 mg PO QDAY PRN (Reason: allergies) zolpidem [Ambien] 10 mg tablet 10 mg PO QHS PRN (Reason: Insomnia) levothyroxine 75 MCG tablet 75 mcg PO DAILY Patient Comments: THYROID SUPPLEMENT losartan 50 MG tablet 50 mg PO DAILY duloxetine 60 mg capsule,delayed release(DR/EC) 60 mg PO DAILY acetaminophen 500 MG tablet 1,000 mg PO Q8H PRN (Reason: Pain 1-10 Or Fever) aspirin 81 MG tablet,chewable 81 mg PO BIDCM Rx Instructions: Take 81 mg aspirin twice daily for 4 weeks postoperatively for DVT prophylaxis esomeprazole magnesium 40 MG capsule 40 mg PO 0600,1700 0RF calcium carbonate-vitamin D3 1 TABLET tablet 1 tab PO BIDCM 0RF meloxicam 15 MG tablet 15 mg PO DAILY PRN PRN (Reason: Pain 1-10 Or Fever) ferrous sulfate 27 MG tablet 27 mg PO DAILY sqnmocba-pkz-fmjz-FA-vit K-lut 1 EACH tablet 1 tab PO DAILY metronidazole 500 MG tablet 500 mg PO TID Qty: 21 0RF cefdinir 300 MG capsule 300 mg PO Q12H Qty: 14 0RF clopidogrel 75 mg tablet 75 mg PO DAILY Qty: 30 11RF rosuvastatin 10 mg tablet 10 mg PO DAILY Qty: 90 3RF Primary Care Provider: Deb Tam Referrals: Deb Tam MD [Primary Care Provider] - 5-7 Days Balta Rosenthal DO [Med Staff - Active Staff] - 3-5 Days Print Language: Ugandan Disposition Disposition: Home, Self Care What to do if you have Problems For any increased pain, shortness of breath, bleeding, nausea or vomiting, chestpain, or any unexpected problems, contact your Primary Care Provider. Call [facility] ([phone]) or report tothe closest Emergency Room. Call 911 if necessary. 05/08/25 1714 Cosigner Signature (if applicable): CC: Dr. Deb Tam MD ~ Signed [facility]07-13-2025 Radiology Diagnostic study note [facility] Imaging Services [address] [place] [address] Shoulder min 2 Views MR#: [id number] Acct: [id number] Name: KATH ARRIAGA Rep #: [id number] : 1945 F 79 From: Yazmin Talamantes MD PCP: Dr. Deb Tam MD Status: RE G ER Study:Shoulder min 2 Views Date of Exam: 05/08/25 Exam# [id number] Ordering Dr: Kev Nelson DO PROCEDURE: SHOULDER MIN 2 VIEWS 05/08/2025 REASON FOR EXAM: INJURY/PAIN TECHNIQUE: SHOULDER MIN 2 VIEWS COMPARISON: None FINDINGS: See below. RAD/Shoulder min 2 Views IMPRESSION: There is a slightly comminuted and mildly impacted fracture through the right humeral neck, which involves the greater tuberosity.Recommend Orthopedic Surgery consultation. Degenerative changes of the acromioclavicular and glenohumeral joints. Calcification adjacent to the humeral head may represent sequela of calcific tendinopathy. Coarsened interstitial markings throughout the visualized lungs. Aortic atherosclerosis. Degenerative changes of the spine. Reading Location: [facility] CC: Dr. Kev Nelson DO; Dr. Deb Tam MD ~ Press Shop Supervisor: Signed [facility]07-13-2025 Discharge summary Author Kev Nelson [facility] Note Date/Time May 08, 2025 5:14 pm [facility] Health System Medical Records Department [address] [place] [address] Emergency Department Summary 05/08/25 MR#: [id number] Acct: [id number] Name: KATH ARRIAGA Rep #:[id number] : 1945 79 From: Kev Martinez PCP: Dr. Deb Tam MD Status:RE G ER Location: ED HPI History of Present Illness HPI Narrative: Patient presents after a fall that occurred today. Patient states she lost her balance. Patient states she has a history of vertigo and balance problems. Patient states she fell onto her right shoulder. Patient describes it as achingand worse with movement. Patient is nothing makes it better. Patient denies any head injury or loss of consciousness. Patient denies any paresthesias or weakness. Patient denies any other injuries. Chief Complaint: Fall Informant: patient Onset/Context/Timing Onset: Today Context: Sudden Onset Timing: Continuous Quality of Pain: Aching Location: Right shoulder and humerus Worsened by: Movement Relieved by: Nothing Associated Symptoms Associated Symptoms: Negative for Parasthesia, Weakness or Loss of Funtion [facility] Medical History (Updated 05/08/25 @ 14:[address] Kev Nelson DO) Atherosclerosis of coronary artery of [place] heart without angina pectoris Obstructive sleep apnea Abnormal nuclear stress test Home Medications ?Medication ?Instructions ?Recorded ?Last Taken ?Type levothyroxine 75 mcg tablet 75 mcg PO DAILY thyroid 11/08/20 History losartan 50 mg tablet 50 mg PO DAILY bp 03/15/19 0 11/07/20 History diphenhydramine HCl 25 mg capsule 25 mg PO QDAY PRN al lergies 07/12/19 11/07/20 History (Benadryl) zolpidem 10 mg tablet (Ambien) 10 mg PO QHS PRN Insomn ia 07/12/19 11/07/20 History duloxetine 60 mg capsule,delayed 60 mg PO DAILY depres jovani 07/13/19 11/08/20 History release acetaminophen 500 mg tablet 1,000 mg PO Q8H PRN Pain 1 -10 Or 08/15/20 11/07/20 History Fever aspirin 81 mg chewable tablet 81 mg PO BIDCM DVT Proph ylaxis 08/15/20 11/08/20 History calcium 500 mg (as 1 tab PO BIDCM 08/30/2010/27 Rx carbonate)-vitamin D3 5 mcg (200 unit) tablet esomeprazole magnesium 40 mg 40 mg PO 0600,1700 11/08/20 Rx capsule,delayed release ferrous sulfate 27 mg iron tablet 27 mg PO DAILY SUPPL EMENT 11/08/20 11/08/20 History meloxicam 15 mg tablet 15 mg PO DAILY PRN PRN Pain 1-10 11/08/20 11/08/20 History Or Fever hzjomgfu-beih-luke 8 mg-folic 400 1 tab PO DAILY SUPPL EMENT 11/08/20 11/08/20 History mcg-K 50 mcg-lutein 300 mcg tablet cefdinir 300 mg capsule 300 mg PO Q12H #14 caps 10/27 04/16 Unknown Rx metronidazole 500 mg tablet 500 mg PO TID #21 tabs Unknown Rx clopidogrel 75 mg tablet 75 mg PO DAILY BLOOD THINNER #30 11/24/20 Unknown Rx tabs rosuvastatin 10 mg tablet 10 mg PO DAILY cholesterol # 90 tabs 05/06/24 Unknown Rx hydrocodone-acetaminophen 5-325mg 1 tab PO Q6H PRN PRN Pain 3 days 05/08/25 Unknown Rx 5mg-325mg #10 TABLETS Allergy/AdvReac Type Severity Reaction Status Date / Time cat dander Allergy Intermediate nasal Verified 11/08/20 15:36 congestion ciprofloxacin (From Cipro) Allergy Hives Verified 11/08/20 15:36 ciprofloxacin HCl (From Allergy Hives Verified 11/08/20 15:36 Cipro) clindamycin Allergy Rash Verified 11/08/20 15:36 doxycycline Allergy Other Verified 11/08/20 15:36 latex Allergy Hives Verified 11/08/20 15:36 nitrofurantoin (From Allergy Other Verified 11/08/20 15:36 Macrobid) Penicillins Allergy Shortness Verified 11/08/20 15:36 of breath vortioxetine (From AdvReac Intermediate GI upset Verified 11/08/20 15:36 Brintellix) methotrexate AdvReac Unknown unknown Verified 11/08/20 15:36 trazodone AdvReac Other Verified 11/08/20 15:36 Family History Father , Hodgkin's age 29 Hodgkin disease Mother Lung cancer Surgical History (Updated 05/08/25 @ 14:[address] 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, bilateral Stented coronary artery (07/16/19) Social History Smoking Status: Former smoker quit date: 10/27/82 pack-years: 20 ROS ROS ED Constitutional Constitutional ED: Denies chills or fever(s) Eyes Eyes: Denies blurry vision or change in vision ENT ENT ED: Denies rhinorrhea or sore throat Cardiovascular Cardiovascular: Denies chest pain or palpitations Respiratory/Chest Respiratory/Chest: Denies cough or dyspnea Gastrointestinal Gastrointestinal: Denies nausea or vomiting Genitourinary Genitourinary ED: Denies dysuria or hematuria Musculoskeletal Musculoskeletal: Denies back pain or neck pain Integumentary Denies abscess or rash Neurologic Neurologic: Denies headache(s) or weakness Allergic/Immunologic Allergic/Immunologic ED: Denies mouth swelling or urticaria EXAM Physical Exam Const Vital Signs: 05/08/25 13:52 05/08/25 13:54 05/08/25 13:58 Temperature 98.4 F 98.5 F Temperature Source Oral Oral Pulse Rate 92 90 Respiratory Rate 18 18 Respiratory Effort Normal Respiratory Depth Normal Respiratory Pattern Normal Blood Pressure 123/101 H 146/88 H Blood Pressure Mean 108 107 Pulse Ox 95 96 Oxygen Delivery Method Room Air Room Air Room Air Positive well nourished and well developed Constitutional Narrative: BMI is 35.8. General Appearance ED: well developed and NAD HEENT Reports moist mucous membranes Neck full ROM and supple Resp normal respiratory effort and clear to auscultation bilaterally Cardio regular rate and regular rhythm GI non-tender and non-distended Palpation: soft Extremity Extremity Narrative: There is tenderness to palpation over the right shoulder and proximal humerus. There is some edema noted. There is no deformity noted. Range of motion was limited in all motions of the right shoulder secondary to pain. There is no tenderness over the distal clavicle. Radial pulses are equal bilaterally. Sensation was intact to light touch in the radial, median, and ulnar areas. Strength is 5/5 in the radial, median, and ulnar areas. Neuro oriented x3, CN's II-XII intact bilaterally, moves all extremities, no focal motor deficits and no sensory deficits noted Sensorium / Orientation: alert Motor Exam: strength 5/5 throughout Psych mental status grossly normal MDM MDM MDM Narrative Medical decision making narrative: Differential diagnosis includes fracture, sprain, and contusion. X-rays of the right shoulder will be obtained to assess for fracture and dislocation. Radiography Diagnostic Testing: X-rays of the right shoulder were obtained. There are 4 views. On my independent interpretation, there is a proximal humerus fracture. There is minimal displacement. There is some posterior angulation of the proximal fragment. Treatment and Re-Evaluation Narrative: Patient was advised of her findings. Patient was given a sling and swath. Patient was given a prescription for short course of Brigantine. Patient was instructed to use ice to the area. Patient was [facility] 7 [facility]. Patient was instructed to return if worse in any way. Patient understood and was agreeable with the plan. All questions were answered. Upon discharge, patient told nurses that she did not feel she could get into herapartment with her sling and swath. Social work was consulted for possible homehealth or other resources for the patient. Discharge Plan Triage Chief Complaint: Fall ED Provider: Kev Nelson Dx/Rx/DC Orders Clinical Impression: Fracture of proximal humerus, Fall Instructions: ED Fracture, Shoulder Prescriptions: New hydrocodone-acetaminophen 5-325 mg tablet 1 tab PO Q6H PRN PRN (Reason: Pain) 3 Days Qty: 10 0RF No Action diphenhydramine HCl [Benadryl] 25 mg capsule 25 mg PO QDAY PRN (Reason: allergies) zolpidem [Ambien] 10 mg tablet 10 mg PO QHS PRN (Reason: Insomnia) levothyroxine 75 MCG tablet 75 mcg PO DAILY Patient Comments: THYROID SUPPLEMENT losartan 50 MG tablet 50 mg PO DAILY duloxetine 60 mg capsule,delayed release(DR/EC) 60 mg PO DAILY acetaminophen 500 MG tablet 1,000 mg PO Q8H PRN (Reason: Pain 1-10 Or Fever) aspirin 81 MG tablet,chewable 81 mg PO BIDCM Rx Instructions: Take 81 mg aspirin twice daily for 4 weeks postoperatively for DVT prophylaxis esomeprazole magnesium 40 MG capsule 40 mg PO 0600,1700 0RF calcium carbonate-vitamin D3 1 TABLET tablet 1 tab PO BIDCM 0RF meloxicam 15 MG tablet 15 mg PO DAILY PRN PRN (Reason: Pain 1-10 Or Fever) ferrous sulfate 27 MG tablet 27 mg PO DAILY sqgkikse-sdw-gcis-FA-vit K-lut 1 EACH tablet 1 tab PO DAILY metronidazole 500 MG tablet 500 mg PO TID Qty: 21 0RF cefdinir 300 MG capsule 300 mg PO Q12H Qty: 14 0RF clopidogrel 75 mg tablet 75 mg PO DAILY Qty: 30 11RF rosuvastatin 10 mg tablet 10 mg PO DAILY Qty: 90 3RF Primary Care Provider: Deb Tam Referrals: Deb Tam MD [Primary Care Provider] - 5-7 Days Balta Rosenthal DO [Med Staff - Active Staff] - 3-5 Days Print Language: Ugandan Disposition Disposition: Home, Self Care What to do if you have Problems For any increased pain, shortness of breath, bleeding, nausea or vomiting, chestpain, or any unexpected problems, contact your Primary Care Provider. Call [facility] ([phone]) or report to the closest Emergency Room. Call 911 if necessary. 05/08/254 <Electronically signed by Kev Nelson DO> Cosigner Signature (if applicable): CC: Dr. Deb Tam MD ~ Signed [facility] Work Phone: [phone]) 795-388206-18-2025 Telephone encounter Note* Telephone Encounter - Deb Tam MD - 04/13/2025 1:01 PM EDT The following approved medication requests have been transmitted electronically. Requested Prescriptions Pending Prescriptions Disp Refills meloxicam (MOBIC) 15 mg tablet 90 tablet 3 Sig: Take 1 tablet by mouth once daily as needed. Deb Tam MD [facility]06-18-2025 Miscellaneous Notes* Telephone Encounter - Deb Tam MD - 04/13/2025 1:01 PM EDT The following approved medication requests have been transmitted electronically. Requested Prescriptions Pending Prescriptions Disp Refills meloxicam (MOBIC) 15 mg tablet 90 tablet 3 Sig: Take 1 tablet by mouth once daily as needed. Deb Tam MD * Telephone Encounter - Dai Hercules - 04/12/2025 1:21 PM EDT Prescription Refill Information The patient has been [...] 12, 2025 1:21 PM documented in this encounterF[facility]06[facility] Telephone encounter Note * Telephone Encounter - Dai Hercules - 04/12/2025 1:21 PM EDT Prescription Refill Information The patient has been [...] Dai Hercules April 12, 2025 1:21 PM [facility]06-03-2025 Telephone encounter Note* Telephone Encounter - Syeda Solomon RN - 03/29/2025 2:23 PM EDT Patient returns call and provider message below reviewed with verbalized understanding. Syeda Solomon RN [facility]06-03-2025 Miscellaneous Notes* Telephone Encounter - Syeda Solomon RN - 03/29/2025 2:23 PM EDT Patient returns call and provider message below reviewed with verbalized understanding. Syeda Solomon RN * Telephone Encounter - Clare Carlos LPN - 03/29/2025 9:54 AM EDT LEFT MESSAGE FOR PATIENT TO CALL OFFICE. * Telephone Encounter - Olga Gaitan APRN.CNP - 03/29/2025 7:33 AM EDT Great, let her know to increase the ferrous gluconate to twice daily and this will help her iron levels. * Telephone Encounter - Joan Dawn LPN - 03/28/2025 4:49 PM EDT Pt calls back to report multivitamin has 18 mg and ferrous gluconate has 28 mg daily. Joan Dawn LPN * Telephone Encounter - Clare Carlos LPN - 03/28/2025 4:39 PM EDT Trouble understanding patient due to static. She is taking ferrous gluconate 38 mg daily and a multivitamin that has 18 mg of iron daily. Call was dropped during mid conversation. * Telephone Encounter - Olga Gaitan APRN.AVA - 03/28/2025 10:37 AM EDT Labs are stable but iron is still at the low end. Please see which iron supplement she is taking and let me know. Thanks! documented in this encounterF[facility]06-03-2025 Telephone encounter Note * Telephone Encounter - Clare Carlos LPN - 03/29/2025 9:54 AM EDT LEFT MESSAGE FOR PATIENT TO CALL OFFICE. [facility]06-03-2025 Telephone encounter Note* Telephone Encounter - Olga Gaitan APRN.CNP - 03/29/2025 7:33 AM EDT Great, let her know to increase the ferrous gluconate to twice daily and this will help her iron levels. [facility]06-02-2025 Telephone encounter Note* Telephone Encounter - Joan Dawn LPN - 03/28/2025 4:49 PM EDT Pt calls back to report multivitamin has 18 mg and ferrous gluconate has 28 mg daily. Joan Dawn LPN [facility]06-02-2025 Telephone encounter Note* Telephone Encounter - Clare Carlos LPN - 03/28/2025 4:39 PM EDT Trouble understanding patient due to static. She is taking ferrous gluconate 38 mg daily and a multivitamin that has 18 mg of iron daily. Call was dropped during mid conversation. [facility]06-02-2025 Telephone encounter Note* Telephone Encounter - Olga Gaitan APRN.CNP - 03/28/2025 10:37 AM EDT Labs are stable but iron is still at the low end. Please see which iron supplement she is taking and let me know. Thanks! [facility]05-19-2025 NoteHNO ID: [id number] Author: OLGA GAITAN APRN.AVA Service: ? Author [...] injury sustained years ago while working at [employer], which has contributed to her chronic pain. [...] arthritis flare Doxycycline Other (more content not included)...[facility] 03-14-2025 History of Present illness Narrative* Olga Gaitan APRN.REHABILITATION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 acidosis May 11, 2025 8:45 pm Leukocytosis May 11, 2025 8:45 pm Obesity (BMI 30-39.9) May 11, 2025 8: 45pm 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) May 11, 2025 8:45pm Sleep apnea May 11, 2025 8:45 pm Additional Source Comments Source Comments (unrecognize d section and content) In the event this informatio n is protected by the Federal Confidentiality of Alcohol and Drug Abuse Patient Records regulations: The Federal rules restrict any use of the information to criminally investigate or prosecute any alcohol or drug abuse patient.[facility] CenterIn the event this information is protected by the Federal Confidentiality of Alcohol and Drug Abuse Patient Records regulations: The Federal rules restrict any use of the information to criminally investigate or prosecute any alcohol or drug abuse patient.[facility] CenterIn the event this information is protected by the Federal Confidentiality of Alcohol and Drug Abuse Patient Records regulations: The Federal rules restrict any use of the information to criminally investigate or prosecute any alcohol or drug abuse patient.[facility] CenterIn the event this information is protected by the Federal Confidentiality of Alcohol and Drug Abuse Patient Records regulations: The Federal rules restrict any use of the information to criminally investigate or prosecute any alcohol or drug abuse patient.[facility] CenterIn the event this information is protected by the Federal Confidentiality of Alcohol and Drug Abuse Patient Records regulations: The Federal rules restrict any use of the information to criminally investigate or prosecute any alcohol or drug abuse patient.[facility] CenterIn the event this information is protected by the Federal Confidentiality of Alcohol and Drug Abuse Patient Records regulations: The Federal rules restrict any use of the information to criminally investigate or prosecute any alcohol or drug abuse patient.[facility] CenterIn the event this information is protected by the Federal Confidentiality of Alcohol and Drug Abuse Patient Records regulations: The Federal rules restrict any use of the information to criminally investigate or prosecute any alcohol or drug abuse patient.[facility] CenterIn the event this information is protected by the Federal Confidentiality of Alcohol and Drug Abuse Patient Records regulations: The Federal rules restrict any use of the information to criminally investigate or prosecute any alcohol or drug abuse patient.[facility] CenterIn the event this information is protected by the Federal Confidentiality of Alcohol and Drug Abuse Patient Records regulations: The Federal rules restrict any use of the information to criminally investigate or prosecute any alcohol or drug abuse patient.[facility] CenterIn the event this information is protected by the Federal Confidentiality of Alcohol and Drug Abuse Patient Records regulations: The Federal rules restrict any use of the information to criminally investigate or prosecute any alcohol or drug abuse patient.[facility] CenterIn the event this information is protected by the Federal Confidentiality of Alcohol and Drug Abuse Patient Records regulations: The Federal rules restrict any use of the information to criminally investigate or prosecute any alcohol or drug abuse patient.[facility] CenterIn the event this information is protected by the Federal Confidentiality of Alcohol and Drug Abuse Patient Records regulations: The Federal rules restrict any use of the information to criminally investigate or prosecute any alcohol or drug abuse patient.[facility] CenterIn the event this information is protected by the Federal Confidentiality of Alcohol and Drug Abuse Patient Records regulations: The Federal rules restrict any use of the information to criminally investigate or prosecute any alcohol or drug abuse patient.[facility] CenterIn the event this information is protected by the Federal Confidentiality of Alcohol and Drug Abuse Patient Records regulations: The Federal rules restrict any use of the information to criminally investigate or prosecute any alcohol or drug abuse patient.[facility] CenterIn the event this information is protected by the Federal Confidentiality of Alcohol and Drug Abuse Patient Records regulations: The Federal rules restrict any use of the information to criminally investigate or prosecute any alcohol or drug abuse patient.[facility] CenterIn the event this information is protected by the Federal Confidentiality of Alcohol and Drug Abuse Patient Records regulations: The Federal rules restrict any use of the information to criminally investigate or prosecute any alcohol or drug abuse patient.[facility] CenterIn the event this information is protected by the Federal Confidentiality of Alcohol and Drug Abuse Patient Records regulations: The Federal rules restrict any use of the information to criminally investigate or prosecute any alcohol or drug abuse patient.[facility] CenterIn the event this information is protected by the Federal Confidentiality of Alcohol and Drug Abuse Patient Records regulations: The Federal rules restrict any use of the information to criminally investigate or prosecute any alcohol or drug abuse patient.[facility] CenterIn the event this information is protected by the Federal Confidentiality of Alcohol and Drug Abuse Patient Records regulations: The Federal rules restrict any use of the information to criminally investigate or prosecute any alcohol or drug abuse patient.[facility] CenterIn the event this information is protected by the Federal Confidentiality of Alcohol and Drug Abuse Patient Records regulations: The Federal rules restrict any use of the information to criminally investigate or prosecute any alcohol or drug abuse patient.[facility] CenterIn the event this information is protected by the Federal Confidentiality of Alcohol and Drug Abuse Patient Records regulations: The Federal rules restrict any use of the information to criminally investigate or prosecute any alcohol or drug abuse patient.[facility] CenterIn the event this information is protected by the Federal Confidentiality of Alcohol and Drug Abuse Patient Records regulations: The Federal rules restrict any use of the information to criminally investigate or prosecute any alcohol or drug abuse patient.[facility] CenterIn the event this information is protected by the Federal Confidentiality of Alcohol and Drug Abuse Patient Records regulations: The Federal rules restrict any use of the information to criminally investigate or prosecute any alcohol or drug abuse patient.[facility] CenterIn the event this information is protected by the Federal Confidentiality of Alcohol and Drug Abuse Patient Records regulations: The Federal rules restrict any use of the information to criminally investigate or prosecute any alcohol or drug abuse patient.[facility] CenterIn the event this information is protected by the Federal Confidentiality of Alcohol and Drug Abuse Patient Records regulations: The Federal rules restrict any use of the information to criminally investigate or prosecute any alcohol or drug abuse patient.[facility] CenterIn the event this information is protected by the Federal Confidentiality of Alcohol and Drug Abuse Patient Records regulations: The Federal rules restrict any use of the information to criminally investigate or prosecute any alcohol or drug abuse patient.[facility] CenterIn the event this information is protected by the Federal Confidentiality of Alcohol and Drug Abuse Patient Records regulations: The Federal rules restrict any use of the information to criminally investigate or prosecute any alcohol or drug abuse patient.[facility] CenterIn the event this information is protected by the Federal Confidentiality of Alcohol and Drug Abuse Patient Records regulations: The Federal rules restrict any use of the information to criminally investigate or prosecute any alcohol or drug abuse patient.[facility] Reason for Visit (unrecogniz ed section [...] Reason Onset Date Comments Refill Request 04/12/2025 Reason Onset Date Comments Refill Request 05/10/2025 Care Teams (unrecognized sec tion and content) Web Analytics Developer Relationship Specialty Start Date End Date Deb Tam MD [address] [place] [address] PCP - General 01/15/05 Coy Chan MD [address] [place] [address] Specialty Furniture Painter Orthopedics 09/17/16 Web Analytics Developer Relationship Specialty Start Date End Date Deb Tam MD [address] [place] [address] PCP - General 01/15/05 Coy Chan MD [address] [place] [address] Specialty Furniture Painter Orthopedics 09/17/16 Web Analytics Developer Relationship Specialty Start Date End Date Deb Tam MD [address] [place] [address] PCP - General 01/15/05 Coy Chan MD [address] [place] [address] Specialty Furniture Painter Orthopedics 09/17/16 Web Analytics Developer Relationship Specialty Start Date End Date Deb Tam MD [address] [place] [address] PCP - General 01/15/05 Coy Chan MD [address] [place] [address] Specialty Furniture Painter Orthopedics 09/17/16 Web Analytics Developer Relationship Specialty Start Date End Date Deb Tam MD [address] [place] [address] PCP - General 01/15/05 Coy Chan MD [address] [place] [address] Specialty Furniture Painter Orthopedics 09/17/16 Web Analytics Developer Relationship Specialty Start Date End Date Deb Tam MD [address] [place] [address] PCP - General 01/15/05 Coy Chan MD [address] [place] [address] Specialty Furniture Painter Orthopedics 09/17/16 Web Analytics Developer Relationship Specialty Start Date End Date Deb Tam MD [address] [place] [address] PCP - General 01/15/05 Coy Chan MD [address] [place] [address] Specialty Furniture Painter Orthopedics 09/17/16 Web Analytics Developer Relationship Specialty Start Date End Date Deb Tam MD [address] [place] [address] PCP - General 01/15/05 Coy Chan MD [address] [place] [address] Specialty Furniture Painter Orthopedics 09/17/16 Web Analytics Developer Relationship Specialty Start Date End Date Deb Tam MD [address] [place] [address] PCP - General 01/15/05 Coy Chan MD [address] [place] [address] Specialty Furniture Painter Orthopedics 09/17/16 Web Analytics Developer Relationship Specialty Start Date End Date Deb Tam MD [address] [place] [address] PCP - General 01/15/05 Coy Chan MD [address] [place] [address] Specialty Furniture Painter Orthopedics 09/17/16 Web Analytics Developer Relationship Specialty Start Date End Date Deb Tam MD [address] [place] [address] PCP - General 01/15/05 Coy Chan MD [address] [place] [address] Specialty Furniture Painter Orthopedics 09/17/16 Web Analytics Developer Relationship Specialty Start Date End Date Deb Tam MD [address] [place] [address] PCP - General 01/15/05 Coy Chan MD [address] [place] [address] Specialty Furniture Painter Orthopedics 09/17/16 Web Analytics Developer Relationship Specialty Start Date End Date Deb Tam MD [address] [place] [address] PCP - General 01/15/05 Coy Chan MD [address] [place] [address] Specialty Furniture Painter Orthopedics 09/17/16 Web Analytics Developer Relationship Specialty Start Date End Date Deb Tam MD [address] [place], [place] [address] PCP - General 01/15/05 Coy Chan MD [address] [place] [address] Specialty Furniture Painter Orthopedics 09/17/16 Web Analytics Developer Relationship Specialty Start Date End Date Deb Tam MD [address] [place], [place] [address] PCP - General 01/15/05 Coy Chan MD [address] [place] [address] Specialty Furniture Painter Orthopedics 09/17/16 Web Analytics Developer Relationship Specialty Start Date End Date Deb Tam MD [address] [place], [place] [address] PCP - General 01/15/05 Coy Chan MD [address] [place], [place] [address] Specialty Furniture Painter Orthopedics 09/17/16 Jaja Kirkpatrick APRN.INSERTING OPERATOR [address] [place] [address] Product Line Manager Internal Medicine 10/04/24 Olga Gaitan, WRAPPER STITCHER.REHABILITATION AIDE/SCHEDULER [address] [place] [address] Product Line Manager Internal Medicine 10/04/24 Web Analytics Developer Relationship Specialty Start Date End Date Deb Tam MD [address] [place] [address] PCP - General 01/15/05 Coy Chan MD [address] [place] [address] Specialty Furniture Painter Orthopedics 09/17/16 Jaja Kirkpatrick WRAPPER STITCHER.INSERTING OPERATOR [address] [place] [address] Product Line Manager Internal Medicine 10/04/24 Olga Gaitan WRAPPER STITCHER.REHABILITATION AIDE/SCHEDULER [address] [place] [address] [facility] Internal Medicine 10/04/24 Web Analytics Developer Relationship Specialty Start Date End Date Deb Tam MD [address] [place] [address] PCP - General 01/15/05 Coy Chan MD [address] [address] Specialty Furniture Painter Orthopedics 09/17/16 Jaja Kirkpatrick WRAPPER STITCHER.INSERTING OPERATOR [address] [place] [address] Product Line Manager Internal Medicine 10/04/24 Olga Gaitan WRAPPER STITCHER.REHABILITATION AIDE/SCHEDULER [address] [place] [address] Product Line Manager Internal Medicine 01/18/25 Web Analytics Developer Relationship Specialty Start Date End Date Deb Tam MD [address] [place] [address] PCP - General 01/15/05 Coy Chan MD [address] [place] [address] Specialty Furniture Painter Orthopedics 09/17/16 Jaja Kirkpatrick, WRAPPER STITCHER.INSERTING OPERATOR [address] [place] [address] Product Line Manager Internal Medicine 10/04/24 Olga Gaitan WRAPPER STITCHER.REHABILITATION AIDE/SCHEDULER [address] [place] [address] Product Line Manager Internal Medicine 01/18/25 Web Analytics Developer Relationship Specialty Start Date End Date Deb Tam MD [address] [place] [address] PCP - General 01/15/05 Coy Chan MD [address] [facility] [address] [place] [address] Specialty Furniture Painter Orthopedics 09/17/16 Olga Gaitan WRAPPER STITCHER.REHABILITATION AIDE/SCHEDULER [address] [place] [address] Product Line Manager Internal Medicine 01/18/25 Jaja Kirkpatrick, WRAPPER STITCHER.INSERTING OPERATOR [address] [place] [address] Product Line Manager Internal Medicine 03/16/25 Web Analytics Developer Relationship Specialty Start Date End Date Deb Tam MD [address] [facility], [place] [address] PCP - General 01/15/05 Coy Chan MD [address] [place] [address] Specialty Furniture Painter Orthopedics 09/17/16 Olga Gaitan APRN.REHABILITATION AIDE/SCHEDULER [address] [place] [address] Product Line Manager Internal Medicine 01/18/25 Jaja Kirkpatrick APRN.INSERTING OPERATOR [address] [place] [address] Product Line Manager Internal Medicine 03/16/25 Team Status: Active Member Role/Relationship Status Dates Dr. Deb Tam MD Primary Care Provider Active Team Status: Inactive Member Role/Relationship Status Dates Dr. Deb Tam MD Primary Care Provider Active Start: May 08, 2025 End: May 08, 2025 Dr. Kev Nelson DO Emergency Provider Active Start: May 08, 2025 End: May 08, 2025 Web Analytics Developer Relationship Specialty Start Date End Date Deb Tam MD [address] [place] [address] PCP - General 01/15/05 Coy Chan MD [address] [place] [address] Specialty Furniture Painter Orthopedics 09/17/16 Olga Gaitan APRN.REHABILITATION AIDE/SCHEDULER [address] [facility], [place] [address] Product Line Manager Internal Medicine 01/18/25 Jaja Kirkpatrick, VLAD.INSERTING OPERATOR [address] [place] [id number] Product Line Manager Internal Medicine 03/16/25 Team Status: Active Member Role/Relationship Status Dates Dr. Deb Tam MD Primary Care Provider Active Start: May 11, 2025 Dr. Virgil Corrales DO Emergency Provider Active Start: May 11, 2025 Dr. Ifeanyi Shaikh , Admit Provider Active Start: May 11, 2025 Dr. Ifeanyi Shaikh , Attending Provider Active Start: May 11, 2025 Dr. Ifeanyi Shaikh DO Referring Provider Active Start: May 11, 2025 INFORMATION SOURCE (unrecogn ized section and content) DATE CREATED AUTHOR 03/16/2025 [facility] DATE CREATED AUTHOR AUTHOR'S ORGANIZ ATION 05/11/2025 [facility] Goals (unrecognized section and content) Goals may be documented in a n alternate sectionGoals may be documented in an alternate section FOR RECORDS PERTAINING TO PATIENTS WHO ARE [...] BE BASED ON THE PRIMARY CLINICAL RECORDS. [employer] provides no warranty or guarantee of the accuracy or completeness of information in this document.
--- OUTSIDE RECORDS SUMMARY | 2025-05-11 23:30 | XMS RPT_ITS | CCD ---
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 Role Phone Daisy Jha DC Unavailable Berta Isaac Unavailable Unavailable Daisy Jha DC Unavailable Dbe Tam MD Primary Care Provider Coy Chan MD Unavailable Deb Tam MD Primary Care Provider Coy Chan MD Unavailable Deb Tam MD Primary Care Provider Coy Chan MD Unavailable Coy Chan MD Unavailable Deb Tam MD Primary Care Provider Kirkpatrick BUSINESS AGENT.GENERAL UTILITY WORKER, Jaja Unavailable Divya BUSINESS AGENT.DIRECTOR OF MATERIALS, Olga Unavailable Divya BUSINESS AGENT.DIRECTOR OF MATERIALS, Olga Unavailable DIVYA OLGA Referring Unavailable TALAMPAS, DEB D Primary Care Unavailable DIVYA OLGA Attending Unavailable TALAMPAS, DEB D Primary Care Unavailable DIVYA OLGA Attending Unavailable TALAMPAS, DEB D Primary Care Unavailable Kirkpatrick BUSINESS AGENT.GENERAL UTILITY WORKER, Jaja Unavailable Dr. Deb Tam MD Primary Care Provider Dr. Kev Nelson DO Emergency Provider Kev Nelson Attending Unavailable Anel, Deb Manasa Primary Care [...] Allergy (Dander) 09-02-20 12 Other: See Comments [facility] Doxycycline (1 source) Doxycycline Drug Allergy 03-15-20 19 Other: See Comments [facility] Latex (1 source) Latex Substance Allergy 02-29-20 08 Rash, Hives [facility] Lincosamides (antibiotic) (1 source) Clindamycin Drug Allergy 06-21-20 13 Rash [facility] Methotrexate (1 source) Methotrexate Drug Allergy 04-11-20 15 Other: See Comments [facility] NITROFURANTOIN, MACROCRYSTALS / Nitrofurantoin, Monohydrate (1 source) NITROFURANTOIN, MACROCRYSTALS / Nitrofurantoin, Monohydrate Drug Allergy 12-10-19 18 Unknown [facility] Penicillins (antibiotic) (1 source) Penicillins Drug Allergy 09-02-20 05 Shortness of Breath [facility] Quinolones (antibiotic) (1 source) Ciprofloxacin Drug Allergy 03-27-20 12 Other: See Comments, [facility] Serotonin Reuptake Inhibitors (SSRIs) (1 source) traZODone Drug Allergy 02-20-20 13 Intolerance [facility] Work Phone: vortioxetine (1 source) vortioxetine Drug Allergy 04-03-20 16 GI Upset [facility] Work Phone: (20 sources) ciprofloxacin drug allergy 03-03-20 17 [facility] Work Phone: (11 sources) ciprofloxacin drug allergy [facility] Work Phone: (20 sources) clindamycin; Translations: [CLINDAMYCIN] drug allergy 06-21-20 13 Rash [facility] Work Phone: (12 sources) natural latex rubber; Translations: [LATEX] allergy to substance 02-29-20 08 [facility] Work Phone: (11 sources) penicillin drug allergy [facility] Work Phone: (11 sources) traZODone drug allergy 03-03-20 17 Rash [facility] Work Phone: (20 sources) traZODone; Translations: [TRAZODONE] food allergy 02-20-20 13 Intolerance [facility] Work Phone: Comment on above: [place] FEELING (11 sources) ACETYL SALICYLIC ACID drug allergy 03-03-20 17 [facility] Work Phone: (20 sources) Cat; Translations: [CATS] Allergy to substance 09-02-20 12 Other: See Comments [facility] (20 sources) Ciprofloxacin; Translations: [CIPROFLOXACIN] Drug Allergy 03-27-20 12 Other: See Comments, [facility] (20 sources) Latex Propensity to adverse reactions 02-29-20 08 Rash, [facility] Work Phone: (20 sources) Methotrexate; Translations: [METHOTREXATE] Drug Allergy 04-11-20 15 Other: See Comments [facility] Work Phone: (20 sources) NITROFURANTOIN, MACROCRYSTALS / Nitrofurantoin, Monohydrate; Translations: [NITROFURANTOIN MONOHYD/M-CRYST] Drug Allergy 12-10-19 18 Unknown [facility] (4 sources) Penicillins; Translations: [PENICILLINS] Propensity to adverse reactions 09-02-20 05 Shortness of Breath [facility] Work Phone: (20 sources) vortioxetine; Translations: [VORTIOXETINE] Drug Allergy 04-03-20 16 GI Upset [facility] Work Phone: (19 sources) Penicillins Propensity to adverse reactions 09-02-20 05 Shortness of Breath [facility] Work Phone: (20 sources) Doxycycline; Translations: [DOXYCYCLINE] Drug Allergy 03-15-20 19 Other: See Comments [facility] Work Phone: (20 sources) Cat Dander; Translations: [CAT DANDER] Drug Allergy 07-13-20 19 Other: See Comments [facility] Work Phone: (5 sources) Penicillins Propensity to adverse reactions 09-02-20 05 Shortness of Breath [facility] (3 sources) Ciprofloxacin; Translations: [ciprofloxacin HCl] Drug Allergy 11-08-19 21 Hives [facility] (2 sources) Nitrofurantoin Drug Allergy 11-08-19 Other [facility] (2 sources) Penicillins Allergy to substance 11-08-19 21 Shortness of breath [facility] (1 source) Ciprofloxacin Drug Allergy 05-11-20 [facility] Repository (1 source) Doxycycline Drug Allergy 05-11-20 [facility] Repository (1 source) Latex Drug allergy (disorder) 05-11-20 [facility] Repository (1 source) Methotrexate Drug Allergy 05-11-20 [facility] Repository (1 source) Nitrofurantoin Drug Allergy 05-11-20 [facility] Repository (1 source) Penicillins Drug allergy (disorder) 05-11-20 [facility] Repository (1 source) vortioxetine Drug Allergy 05-11-20 [facility] Repository Medications Current Medications Medication Drug Class(es) [...] TABS po q 4 hrs prn ACETAMINOPHEN [id number] Ramila Cowan LPN Comment on above: Take [...] tabs po q 4 hrs prn HYDROCODONE-ACETAMINOPHEN [id number] Berta Isaac Start: 07-23-2013 take 2 tablets by mo [facility] every four hours as needed VICODIN 5-500 MG TABS 2 tabs po q 4 hrs prn HYDROCODONE-ACETAMINOPHEN [id number] Ramila Cowan LPN aspirin 81 mg chewable [...] One tablet by mouth daily CALCIUM CARB-CHOLECALCIFEROL [id number] Ramila Cowan LPN calcium citrate 1190 mg [...] HOME USE. DX: Hypertension I10 Diaper,Brief, Adult,Disposable ([employer] CLASSIC ADULT BRIEFS X-L) (20 sources) Start: 020 Diaper,Brief, Adult,Disposable ([employer] ADULT BRIEFS X-L) Pull ups with liner [...] 50mg po q day prn DIPHENHYDRAMINE HCL [id number] Ramila Cowan LPN take 2 tablets by mo [facility] once daily as needed BENADRYL 25 MG TABS 50mg po q day prn DIPHENHYDRAMINE HCL [id number] Ramila Cowan LPN Comment on above: Take [...] on above: Take 1 capsule by mo [facility] twice daily before meals. ferrous gluconate [...] Boost Max 1 can twic e daily Wqzrkdmz-Erx-Uaqm-Fa-V it K-Lut 1 EACH tablet (2 sources) Start: take 1 tablet by mouth once daily Hxdvuqfa-Jtx-Hqop-Fa- Vit K-Lut 1 EACH tablet Active 1 [...] Comment on above: Take 1 tablet by [facility] once daily. levothyroxine sodium 0.075 mg oral [...] VITAMIN B 12 250 MCG LOZG CYANOCOBALAMIN [id number] Ramila Cowan LPN Comment on above: Dissolve [...] 05, 2020 9:54am Start: 07-12-2019 End: 03-31-2020 Lxytjki-Ugxbstqdghkds-Nsopfb ne (Excedrin Extra Strength) 250-250-65 mg tablet [...] One tablet by mouth daily AMLODIPINE BESYLATE [id number] Olga Lara MD bismuth subsalicylate 17.5 mg/ml [...] tablet by mouth daily CALCIUM CARB-CHOLECALCIFER OL [id number] Ramila Cowan LPN cefdinir 300 mg oral [...] 23, 2013 1:00am October 19, 2015 3:33pm [facility] ALLERGY 1 MG/ML SYRP 5mg po q day CETIRIZINE HCL [id number] Ramila Cowan LPN chlorhexidine gluconate 40 mg/ml medicated liquid soap (20 sources) Start: 11-24-2013 End: 03-03-2017 CHLORHEXIDINE GLUCONATE 4 % LIQD CHLORHEXIDINE GLUCONATE [id number] Olga Lara MD citalopram 40 mg oral tablet (11 sources) Serotonin Reuptake Inhibitor take 1 tablet by mouth once daily CELEXA 40 MG TABS One tablet by mouth daily CITALOPRAM HYDROBROMIDE 85386406610 Ramila Cowan LPN clopidogrel 75 mg oral [...] supplies. docusate sodium 50 mg / sennosides, group home 8.6 mg oral tablet (2 sources) Start: [...] 12 hrs x 2 wks DOXYCYCLINE HYCLATE [id number] Olga Lara MD Start: 07-22-2013 End: 11-24-2013 take 1 tablet by mouth twice daily DOXYCYCLINE HYCLATE 100 MG TABS One tablet by mouth twice daily DOXYCYCLINE HYCLATE [id number] Olga Lara MD DULoxetine 60 mg delayed [...] Comment on above: Take 1 capsule by [facility] once daily. 0.4 ml enoxaparin sodium 100 mg/ml prefilled syringe (4 sources) Low Molecular Weight Heparin Start: 0 End: 0 Enoxaparin 40 MG/0.4 ML syringe Discontinued 40 mg SC DAILY@0600 August 15, 2020 3:28pm August 30, 2020 8:28pm DVT Prophylaxis Continue Lovenox until 2-week follow-up at [facility] [place] for DVT prophylaxis famotidine 20 mg oral [...] 1 sp ray daily prn FLUTICASONE PROPIONATE [id number] Ramila Cowan LPN FLONASE 50 MCG/A CT SUSP 1 spray daily prn FLUTICASONE PROPIONATE [id number] Ramila Cowan LPN End: 11-24-2013 FLONASE 50 MCG/ACT SUSP 1 sp ray daily prn FLUTICASONE PROPIONATE [id number] Olga Lara MD Comment on above: Use [...] One tablet by mouth daily FOLIC ACID [id number] Ramila Cowan LPN Comment on above: Take [...] 15, 2020 12:00am August 15, 2020 3:28pm BXVMZWXAVAY-SXLXWGFIPBH-BDY (8 sources) take 1 tablet by mouth once daily CONDROLITE 500-200-150 MG TABS One tablet by mouth daily NDQFLUSKRWZ-ICGGJJRWUZB-JSD [id number] Ramila Cowan KNOCKOUT WORKER GPVOCIPCEES-JEPTIIXYUFM-GVM (3 sources) take 1 tablet by mouth once daily CONDROLITE 500-200-150 MG TABS One tablet by mouth daily ZQMTHHYBZQO-HHXYPKCUMHK-TSA [id number] Ramila Cowan KNOCKOUT WORKER Hydrocodone Bitart/Apap 5-32 5 (2 sources) St [...] Two tablets by mouth daily HYDROXYCHLOROQUINE SULFATE [id number] Olga Lara MD lisinopril 10 mg oral tablet (2 sources) Angiotensin Converting Enzyme Inhibitor St ar t: 12 0 15 En d: 15 take 1 tablet by mouth once daily Lisinopril 10 MG tablet Discontinued 10 mg PO DAILY October 15, 2015 1:00am October 19, 2015 3:33pm loperamide hydrochloride 2 m g oral capsule (10 sources) Opioid Agonist [facility] t: 09 20 En d: 21 take [...] One tablet by mouth daily MULTIPLE VITAMINS-MINERALS [id number] Ramila Cowan KNOCKOUT WORKER MULTIPLE VITAMINS-MINERALS (3 sources) take 1 tablet by mouth once daily CENTRUM TABS One tablet by mouth daily MULTIPLE VITAMINS-MINERALS 29555577531 Ramila Cowan LPN Multivitamin With Folic Acid [...] and for 5 d after MUPIROCIN CALCIUM [id number] Olga Lara MD Start: 11-24-2013 End: 11-29-2013 BACTROBAN NASAL 2 % OINT twi ce daily for 5 days prior to surgery and for 5 d after MUPIROCIN CALCIUM [id number] Olga Lara MD Mupirocin Calcium (Bactroban Nasal) [...] CPDR One tablet by mouth daily OMEPRAZOLE [id number] Ramila Cowan KNOCKOUT WORKER take 1 tablet by mouth once keyona y PRILOSEC 40 MG CPDR One tablet by mouth daily OMEPRAZOLE [id number] Ramila Cowan LPN 2 ml ondansetron 2 [...] Comment on above: Take 1 capsule by [facility] once daily. predniSONE 10 mg oral tablet [...] MG TABS .5mg po tid ROPINIROLE HCL 46330382246 Ramila Cowan LPN rosuvastatin calcium 10 mg [...] SOLR 50mg IV q 12 hrs TIGECYCLINE 14425374978 Ramila Cowan LPN traMADol hydrochloride 50 mg [...] for pain as needed TRAMADOL HCL TABS [id number] Olga Lara MD ubidecarenone 50 mg oral [...] Comment on above: Take 1 capsule by [facility] once daily. zolpidem tartrate 10 mg oral [...] MG T ABS 1 daily ZOLPIDEM TARTRATE [id number] Berta Isaac Start: 06-03-2016 End: 07-12-2019 take [...] SUBL 10mg sublingual daily prn ZOLPIDEM TARTRATE 25694418762 Ramila Cowan LPN take 10 mg under the tongue once daily as needed EDLUAR 5 MG SUBL 10mg sublingual daily prn ZOLPIDEM TARTRATE 88758058524 Ramila Cowan LPN Comment on above: Take [...] Coronary atherosclerosis; Translations: [Atherosclerotic heart disease of [place] coronary artery without angina pectoris] Onset: 0 [...] per Pharm Nuc stress test done 07/01/2019 @[facility] Other upper respiratory disease (20 sources) [...] sleep study done 05/02/2016 Dr. Emmanuel Barnett [facility] Residual codes; unclassified (3 sources) Sleep [...] to Proximal Diag #1 per ARLYN @ [facility], 07/16/2019 Other and unspecified benign neoplasm [...] (Unsp spec) [#/Vol] 0.81 10*3/uL Low 0.83-4.51 [facility] Absolute neutrophil countOrd ered By: Virgil Corrales on 05-11-2025 Neutrophils (Bld) [#/Vol] 9.6 10*3/uL High 2.0-7.7 [facility] Amorphous sediment detection in urine sediment by light microscopyOrdered By: Virgil Corrales on 05-11-2025 Amorphous sediment LM Ql (Urine sed) 1+ URATE [facility] Anion gap in Serum or Plasma Ordered By: Virgil Corrales on 05-11-2025 Anion gap [Moles/Vol] 17 mmol/L High 5-15 [facility] Automated lymphocyte count a s percentage of total leukocytesOrdered By: Virgil Corrales on 05-11-2025 Lymphocytes/100 WBC Auto (Unsp spec) 7.0 % Low 19-41 [facility] BUN/creatinine ratioOrdered By: Virgil Corrales on 05-11-2025 Urea nitrogen/Creatinine [Mass ratio] 48.1 mg/mg High 10-20 [facility] Basophil percentageOrdered B y: Virgil Corrales on 05-11-2025 Basophils/100 WBC (Bld) 0.3 % 0-1 [facility] Bilirubin Test strip Ql (U)O rdered By: Virgil Corrales on 05-11-2025 Bilirubin Ql (U) Negative Negative [facility] Bilirubin, totalOrdered By: Virgil Corrales on 05-11-2025 Bilirubin [Mass/Vol] 0.52 mg/dL 0.00-1.30 [facility] Brain/Head without Contrasto n 05-11-2025 Brain/Head without Contrast [facility] Services [address] [place] [address] [id number] Brain/Head without Contrast MR#: [id number] Acct: [id number] Name: KATH ARRIAGA Rep #: [id number] : 1945 F 79 From: Alec Godwin MD PCP: Dr. Deb Tam MD Status: REG ER Study: Brain/Head without Contrast Date of Exam: 04/26 04/20 Exam# [id number] Ordering Dr: Virgil Corrales DO PROCEDURE: BRAIN/HEAD [...] right basal ganglia. Atherosclerotic vascular calcifications. Absent [place] ocular lenses. Intact skull base and calvarium. Clear paranasal sinuses and mastoid air cells. CT/Brain/Head without Contrast IMPRESSION: 1. No evidence of acute intracranial pathology. 2. Moderate-advanced volume loss and chronic small-vessel ischemic changes. Reading Location: [id number] CC: Dr. Deb Tam MD; Dr. Virgil Corrales DO Commutator Assembler: Signed Normal [facility] CBC W/Diff, Automatedon 04-26 Absolute Lymph 0.81 X10 3/uL Low 0.83-4.51 [facility] Comment on above: Performed By: #### L 500.4050, L100.0100, L501.2450 #### [facility] [address] [place], [address] Absolute Neut 9.6 X10 3/uL High 2.0-7.7 [facility] Comment on above: Performed By: #### L 500.4050, L100.0100, L501.2450 #### [facility] [address] [place], [address] Basophils/100 WBC (Bld) 0.3 % Normal 0-1 [facility] Comment on above: Performed By: #### L 500.4050, L100.0100, L501.2450 #### [facility] [address] [place], [address] Eosinophils/100 WBC (Bld) 0.3 % Normal 0-5 [facility] Comment on above: Performed By: #### L 500.4050, L100.0100, L501.2450 #### [facility] [address] [place], [address] Erythrocyte distribution width (RBC) [Ratio] 14.0 % Normal 11.6-14.6 [facility] Comment on above: Performed By: #### L 500.4050, L100.0100, L501.2450 #### [facility] [address] [place], [address] Hematocrit (Bld) [Volume fraction] 30.3 % Low 37-47 [facility] Comment on above: Performed By: #### L 500.4050, L100.0100, L501.2450 #### [facility] [address] [place], [address] Hemoglobin (Bld) [Mass/Vol] 9.9 g/dL Low 12.0-15.0 [facility] Comment on above: Performed By: #### L 500.4050, L100.0100, L501.2450 #### [facility] [address] [place], [address] IG% 0.300 Normal 0.0-0.9 [facility] Comment on above: Result Comment: IG% - Immature Granulocytes (promyelocytes, myelocytes and metamyelocytes) > 1% indicates that a LEFT SHIFT is Present. Performed By: #### L 500.4050, L100.0100, L501.2450 #### [facility] [address] [place], [address] Lymphocytes/100 WBC (Bld) 7.0 % Low 19-41 [facility] Comment on above: Performed By: #### L 500.4050, L100.0100, L501.2450 #### [facility] [address] [place], [address] MCH (RBC) [Entitic mass] 30.7 pg Normal 27.0-32.0 [facility] Comment on above: Performed By: #### L 500.4050, L100.0100, L501.2450 #### [facility] [address] [place], [address] MCHC (RBC) [Mass/Vol] 32.7 g/dL Normal 32-36 [facility] Comment on above: Performed By: #### L 500.4050, L100.0100, L501.2450 #### [facility] [address] [place], [address] MCV (RBC) [Entitic vol] 94.1 fL Normal 81-99 [facility] Comment on above: Performed By: #### L 500.4050, L100.0100, L501.2450 #### [facility] [address] [place], [address] Monocytes/100 WBC (Bld) 8.4 % Normal 0-10 [facility] Comment on above: Performed By: #### L 500.4050, L100.0100, L501.2450 #### [facility] [address] [place], [address] Neutrophils/100 WBC (Bld) 83.7 % High 47-70 [facility] Comment on above: Performed By: #### L 500.4050, L100.0100, L501.2450 #### [facility] [address] [place], [address] Nucleated RBC (Bld) [#/Vol] 0 10*3/uL Normal 0-5 [facility] Comment on above: Performed By: #### L 500.4050, L100.0100, L501.2450 #### [facility] [address] [place], [address] Platelet mean volume (Bld) [Entitic vol] 9.4 fL Normal 6.2-12.0 [facility] Comment on above: Performed By: #### L 500.4050, L100.0100, L501.2450 #### [facility] [address] [place], [address] Platelets (Bld) [#/Vol] 233 10*3/uL Normal 150-450 [facility] Comment on above: Performed By: #### L 500.4050, L100.0100, L501.2450 #### [facility] [address] [place], [address] RBC (Bld) [#/Vol] 3.22 10*6/uL Low 4.2-5.4 [facility] Comment on above: Performed By: #### L 500.4050, L100.0100, L501.2450 #### [facility] [address] [place], [address] RDW SD 48.0 fl High 35.1-43.9 [facility] Comment on above: Performed By: #### L 500.4050, L100.0100, L501.2450 #### [facility] [address] [place], [address] WBC (Bld) [#/Vol] 11.5 10*3/uL High 4.4-11.0 [facility] Comment on above: Performed By: #### L 500.4050, L100.0100, L501.2450 #### [facility] [address] [place], [address] CO2 (BldV) [Moles/Vol]Ordere d By: Virgil Corrales on 05-11-2025 CO2 [Moles/Vol] 21 mmol/L Low 23-33 [facility] Carbon dioxide, total [Moles /volume] in Central venous bloodOrdered By: Virgil Corrales on 05-11-2025 CO2 [Moles/Vol] 15.6 mmol/L Low 21.0-32.0 [facility] Chloride assayOrdered By: Fredrick Corrales on 05-11-2025 Chloride [Moles/Vol] 96 mmol/L Low 98-108 [facility] Comprehensive Metabolic Prof ilon 05-11-2025 Albumin [Mass/Vol] 3.9 g/dL Normal 3.4-4.8 [facility] Comment on above: Performed By: #### L 500.4050, L100.0100, L501.2450 #### [facility] [address] [place], [address] Albumin/Globulin [Mass ratio] 1.3 {ratio} Normal 0.9-2.4 [facility] Comment on above: Performed By: #### L 500.4050, L100.0100, L501.2450 #### [facility] [address] [place], [address] ALK PHOS 86 U/L Normal 35-104 [facility] Comment on above: Performed By: #### L 500.4050, L100.0100, L501.2450 #### [facility] [address] [place], [address] ALT [Catalytic activity/Vol] 32 U/L Normal <=34 [facility] Comment on above: Performed By: #### L 500.4050, L100.0100, L501.2450 #### [facility] [address] [place], [address] AST [Catalytic activity/Vol] 77 U/L High <=31 [facility] Comment on above: Result Comment: Hemo lysis present, Results??could be affected. ?? Performed By: #### L 500.4050, L100.0100, L501.2450 #### [facility] [address] [place], [address] Bilirubin [Mass/Vol] 0.52 mg/dL Normal 0.00-1.30 [facility] Comment on above: Performed By: #### L 500.4050, L100.0100, L501.2450 #### [facility] [address] [place], [address] BUN/CRE 48.1 RATIO High 10-20 [facility] Comment on above: Performed By: #### L 500.4050, L100.0100, L501.2450 #### [facility] [address] [place], [address] Calcium [Mass/Vol] 9.3 mg/dL Normal 7.6-11.0 [facility] Comment on above: Performed By: #### L 500.4050, L100.0100, L501.2450 #### [facility] [address] [place], [address] Chloride [Moles/Vol] 96 mmol/L Low 98-108 [facility] Comment on above: Performed By: #### L 500.4050, L100.0100, L501.2450 #### [facility] [address] [place], [address] CO2 [Moles/Vol] 15.6 mmol/L Low 21.0-32.0 [facility] Comment on above: Performed By: #### L 500.4050, L100.0100, L501.2450 #### [facility] [address] [place], [address] Creatinine [Mass/Vol] 1.22 mg/dL High 0.70-1.20 [facility] Comment on above: Performed By: #### L 500.4050, L100.0100, L501.2450 #### [facility] [address] [place], [address] ECRCL 40.78 ml/min Low 50-250 [facility] Comment on above: Performed By: #### L 500.4050, L100.0100, L501.2450 #### [facility] [address] [place], [address] GAP 17 High 5-15 [facility] Comment on above: Performed By: #### L 500.4050, L100.0100, L501.2450 #### [facility] [address] [place], [address] GFR/1.73 sq M.predicted among non-blacks MDRD (S/P/Bld) [Vol rate/Area] 45 mL/min/{1.73_m2} Low >60 [facility] Comment on above: Result Comment: mL/m in/1.73m2 CKD-EPI Creatinine Equation (2020) Performed By: #### L 500.4050, L100.0100, L501.2450 #### [facility] [address] [place], [address] Globulin (S) [Mass/Vol] 3.1 g/dL Normal 2.2-4.2 [facility] Comment on above: Performed By: #### L 500.4050, L100.0100, L501.2450 #### [facility] [address] [place], [address] Glucose [Mass/Vol] 124 mg/dL High 70-99 [facility] Comment on above: Performed By: #### L 500.4050, L100.0100, L501.2450 #### [facility] [address] [place], [address] Potassium [Moles/Vol] 3.9 mmol/L Normal 3.3-5.1 [facility] Comment on above: Result Comment: Hemo lysis present, Results??could be affected. ?? Performed By: #### L 500.4050, L100.0100, L501.2450 #### [facility] [address] [place], [address] Sodium [Moles/Vol] 129 mmol/L Low 133-145 [facility] Comment on above: Performed By: #### L 500.4050, L100.0100, L501.2450 #### [facility] [address] [place], [address] T PROT 6.9 g/dL Normal 5.9-8.4 [facility] Comment on above: Performed By: #### L 500.4050, L100.0100, L501.2450 #### [facility] [address] [place], [address] Urea nitrogen [Mass/Vol] 59 mg/dL High 4-19 [facility] Comment on above: Performed By: #### L 500.4050, L100.0100, L501.2450 #### [facility] [address] [place], [address] Eosinophil percentageOrdered By: Virgil Corrales on 05-11-2025 Eosinophils/100 WBC (Bld) 0.3 % 0-5 [facility] Erythrocyte distribution wid th ratioOrdered By: Virgil Corrales on 05-11-2025 Erythrocyte distribution width (RBC) [Ratio] 14.0 % 11.6-14.6 [facility] Erythrocyte distribution wid th standard deviationOrdered By: Virgil Corrales on 05-11-2025 Erythrocyte distribution width (RBC) [Ratio] 48.0 fl High 35.1-43.9 [facility] Glomerular filtration rate ( GFR) estimation/1.73 sq m using serum, plasma, or whole bOrdered By: Virgil Corrales on 05-11-2025 GFR/1.73 sq M.predicted among non-blacks MDRD (S/P/Bld) [Vol rate/Area] 45 mL/min/{1.73_m2} Low >60 [facility] Comment on above: mL/min/1.73m2 CKD-EP I Creatinine Equation (2020) Hematocrit Auto (Bld) [Volum e fraction]Ordered By: Virgil Corrales on 05-11-2025 Hematocrit (Bld) [Volume fraction] 30.3 % Low 37-47 [facility] Hemoglobin measurementOrdere d By: Virgil Corrales on 05-11-2025 Hemoglobin (Bld) [Mass/Vol] 9.9 g/dL Low 12.0-15.0 [facility] Immature granulocytes/100 WB C Auto (Bld)Ordered By: Virgil Corrales on 05-11-2025 Immature granulocytes/100 WBC (Bld) 0.300 % 0.0-0.9 [facility] Comment on above: IG% - Immature Granu locytes (promyelocytes, myelocytes and metamyelocytes) > 1% indicates that a LEFT SHIFT is Present. Ketones Test strip Ql (U)Ord ered By: Virgil Corrales on 05-11-2025 Ketones Ql (U) Negative Negative [facility] L501.4021on 05-11-2025 Trop T High Sen 26 ng/L High <=14 [facility] Comment on above: Performed By: #### L 501.4021 #### [facility] [address] [place], [address] Laboratory - Chemistry and C hemistry - challengeOrdered By: Virgil Corrales on 05-11-2025 AST [Catalytic activity/Vol] 77 U/L High <32 [facility] Comment on above: Hemolysis present, R esults could be affected. Lactic Acidon 05-11-2025 Lactate [Moles/Vol] 3.2 mmol/L Invalid Interpretation Code 0.0-2.0 [facility] Comment on above: Order Comment: Y Result Comment: Crit ical Result(s) Called LSPARR at: 2019 by: MILKA??Results read back by same. Performed By: #### L 503.6005 #### [facility] [address] [place], [address] Lactic acid measurementOrder ed By: Virgil Corrales on 05-11-2025 Lactate [Moles/Vol] 3.2 mmol/L High 0.0-2.0 [facility] Comment on above: Critical Result(s) C alled LSPARR at: 2019 by: MILKA Results read back by same. Lipaseon 05-11-2025 Lipase [Catalytic activity/Vol] 29 U/L Normal 13-75 [facility] Comment on above: Result Comment: Danuta garcia note: LIPASE revised reference range effective 23. New Lipase methodology. Expected to produce lower values than the previous assay method. NEW Reference Range: 13 - 75 U/L Performed By: #### L 500.9770, L100.0100, L501.2450 #### [facility] [address] [place], [address] Lipase measurementOrdered By : Virgil Corrales on 05-11-2025 Lipase [Catalytic activity/Vol] 29 U/L 13-75 [facility] Comment on above: Please note:LIPASE r evised reference range effective 23. New Lipase methodology. Expected to produce lower values than the previous assay method. NEW Reference Range: 13 - 75 U/L MCV (mean corpuscular volume ) determinationOrdered By: Virgil Corrales on 05-11-2025 MCV (RBC) [Entitic vol] 94.1 fL 81-99 [facility] Mean corpuscular hemoglobin (MCH) determinationOrdered By: Virgil Corrales on 05-11-2025 MCH (RBC) [Entitic mass] 30.7 pg 27.0-32.0 [facility] Mean corpuscular hemoglobin concentration (MCHC) determinationOrdered By: Virgil Corrales on 05-11-2025 MCHC (RBC) [Mass/Vol] 32.7 g/dL 32-36 [facility] Mean platelet volume determi nationOrdered By: Virgil Corrales on 05-11-2025 Platelet mean volume (Bld) [Entitic vol] 9.4 fL 6.2-12.0 [facility] Microscopic analysis of urin e for red blood cells (RBC)Ordered By: Virgil Corrales on 05-11-2025 Microscopic analysis of urine for red blood cells (RBC) 0 SEEN /hpf 0-5 [facility] Monocyte percentageOrdered B y: Virgil Corrales on 05-11-2025 Monocytes/100 WBC (Bld) 8.4 % 0-10 [facility] Mucus LM Ql (Urine sed)Order ed By: Virgil Corrales on 05-11-2025 Mucus Ql (Urine sed) 0 SEEN /hpf [facility] Neutrophil percentageOrdered By: Virgil Corrales on 05-11-2025 Neutrophils/100 WBC (Bld) 83.7 % High 47-70 [facility] Nitrite Test strip Ql (U)Ord ered By: Virgil Corrales on 05-11-2025 Nitrite Ql (U) Negative Negative [facility] No Panel InformationOrdered By: Virgil Corrales on 05-11-2025 Blood Gas Sample Site Not entered [facility] Blood Gas Specimen Type JUDY [facility] Oxygen Delivery Device Not entered [facility] Nucleated red blood cell per centageOrdered By: Virgil Corrales on 05-11-2025 Nucleated RBC/100 WBC (Bld) [Ratio] 0 % 0-5 [facility] Platelet countOrdered By: Fredrick Corrales on 05-11-2025 Platelets (Bld) [#/Vol] 233 10*3/uL 150-450 [facility] Potassium measurement (mass/ volume)Ordered By: Virgil Corrales on 05-11-2025 Potassium (Unsp spec) [Mass/Vol] 3.9 mmol/L 3.3-5.1 [facility] Comment on above: Hemolysis present, R esults could be affected. Protein Test strip Ql (U)Ord ered By: Virgil Corrales on 05-11-2025 Protein Ql (U) 30 mg/dl High Negative [facility] RBC Auto (Bld) [#/Vol]Ordere d By: Virgil Corrales on 05-11-2025 RBC (Bld) [#/Vol] 3.22 10*6/uL Low 4.2-5.4 [facility] Serum creatinine measurement (mass/volume)Ordered By: Virgil Corrales on 05-11-2025 Creatinine [Mass/Vol] 1.22 mg/dL High 0.70-1.20 [facility] Serum globulin measurementOr dered By: Virgil Corrales on 05-11-2025 Globulin (S) [Mass/Vol] 3.1 g/dL 2.2-4.2 [facility] Serum glucose measurement (m ass/volume)Ordered By: Virgil Corrales on 05-11-2025 Glucose [Mass/Vol] 124 mg/dL High 70-99 [facility] Serum or plasma alanine garcia otransferase (ALT) measurementOrdered By: Virgil Corrales on 05-11-2025 ALT [Catalytic activity/Vol] 32 U/L <35 [facility] Serum or plasma albumin cong urement (mass/volume)Ordered By: Virgil Corrales on 05-11-2025 Albumin [Mass/Vol] 3.9 g/dL 3.4-4.8 [facility] Serum or plasma albumin/glob ulin mass ratioOrdered By: Virgil Corrales on 05-11-2025 Albumin/Globulin [Mass ratio] 1.3 {ratio} 0.9-2.4 [facility] Serum or plasma alkaline sonido sphatase measurementOrdered By: Virgil Corrales on 05-11-2025 ALP [Catalytic activity/Vol] 86 U/L 35-104 [facility] Serum or plasma calcium cong urement (mass/volume)Ordered By: Virgil Corrales on 05-11-2025 Calcium [Mass/Vol] 9.3 mg/dL 7.6-11.0 [facility] Serum or plasma ferritin jag surement (mass/volume)Ordered By: Ifeanyi Paula on 05-11-2025 Ferritin [Mass/Vol] 135 ng/mL 22-378 [facility] Serum or plasma iron saturat ion measurement (mass fraction)Ordered By: Ifeanyi Paula on 05-11-2025 Iron saturation [Mass fraction] 12.0 % Low 13-59 [facility] Serum or plasma urea nitroge n measurement (mass/volume)Ordered By: Virgil Corrales on 05-11-2025 Urea nitrogen [Mass/Vol] 59 mg/dL High 4-19 [facility] Sodium levelOrdered By: Carol Corrales on 05-11-2025 Sodium [Moles/Vol] 129 mmol/L Low 133-145 [facility] Squamous epithelial cells de tection in urine sediment by light microscopyOrdered By: Virgil Corrales on 05-11-2025 Epithelial cells.squamous LM Ql (Urine sed) 0 SEEN /hpf 5-10 [facility] TSH DL <= 0.005 mIU/L QnOrde red By: Ifeanyi Paula on 05-11-2025 TSH Qn 2.340 uIU/mL 0.300-4.200 [facility] Total proteinOrdered By: Jurgen Corrales on 05-11-2025 Protein [Mass/Vol] 6.9 g/dL 5.9-8.4 [facility] Troponin T.cardiac [Mass/vol ume] in Serum or Plasma by High sensitivity methodOrdered By: Virgil Corrales on 05-11-2025 Troponin T.cardiac High sensitivity method [Mass/Vol] 26 ng/L High <14 [facility] Urinalysis, Completeon 05-11 AMORPHOUS 1+ URATE Normal [facility] Comment on above: Order Comment: CLEAN CATCH Performed By: #### L 400.0001 #### [facility] [address] [place], [address] WBC 0-5 SEEN Normal 0-5 [facility] Comment on above: Order Comment: CLEAN CATCH Performed By: #### L 400.0001 #### [facility] [address] [place], [address] BACTERIA 2+ /hpf Normal None Seen [facility] Comment on above: Order Comment: CLEAN CATCH Performed By: #### L 400.0001 #### [facility] [address] [place], [address] EPI,SQUAMOUS 0 SEEN Normal 5-10 [facility] Comment on above: Order Comment: CLEAN CATCH Performed By: #### L 400.0001 #### [facility] [address] [place], [address] Mucus Ql (Urine sed) 0 SEEN Normal [facility] Comment on above: Order Comment: CLEAN CATCH Performed By: #### L 400.0001 #### [facility] [address] [place], [address] RBC 0 SEEN Normal 0-5 [facility] Comment on above: Order Comment: CLEAN CATCH Performed By: #### L 400.0001 #### [facility] [address] [place], [address] Urine clarityOrdered By: Jurgen Corrales on 05-11-2025 Clarity (U) Cloudy Clear [facility] Urine color determinationOrd ered By: Virgil Corrales on 05-11-2025 Color (U) Straw Yellow [facility] Urine glucose detectionOrder ed By: Virgil Corrales on 05-11-2025 Glucose Ql (U) Normal mg/dl Normal [facility] Urine leukocyte esterase det ection by dipstickOrdered By: Virgil Corraels on 05-11-2025 Leukocyte esterase Test strip Ql (U) Negative Negative [facility] Urine pHOrdered By: Virgil chan on 05-11-2025 pH (U) 5.0 [pH] 5.0 - 8.0 [facility] Urine sediment bacteria coun t by microscopy (number/high power field)Ordered By: Virgil Corrales on 05-11-2025 Bacteria LM.HPF (Urine sed) [#/Area] 2 /[HPF] None Seen [facility] Urine specific gravity measu rementOrdered By: Virgil Corrales on 05-11-2025 Specific gravity (U) [Rel density] 1.020 1.002-1.030 [facility] Urine urobilinogen measureme ntOrdered By: Virgil Corrales on 05-11-2025 Urobilinogen Ql (U) Normal mg/dl Normal [facility] Venous Blood Gason Blood Gas Type JUDY Normal [facility] Comment on above: Performed By: #### L 9000.0810 #### [facility] [address] [place], [address] CO2 [Moles/Vol] 21 mmol/L Low 23-33 [facility] Comment on above: Performed By: #### L 9000.0810 #### [facility] [address] [place], [address] HCO3 (Bld) [Moles/Vol] 19 mmol/L Low 22-26 [facility] Comment on above: Performed By: #### L 9000.0810 #### [facility] [address] [place], [address] O2 Delivery Dev Not entered Normal [facility] Comment on above: Performed By: #### L 9000.0810 #### [facility] [address] [place], [address] SITE Not entered Normal [facility] Comment on above: Performed By: #### L 9000.0810 #### [facility] [address] [place], [address] VBG BE -6 mmol/L Low -1.0-3.5 [facility] Comment on above: Performed By: #### L 9000.0810 #### [facility] [address] [place], [address] VBG pCO2 33.5 mmHg Low 41-51 [facility] Comment on above: Performed By: #### L 9000.0810 #### [facility] [address] [place], [address] VBG pH 7.37 Normal 7.32-7.42 [facility] Comment on above: Performed By: #### L 9000.0810 #### [facility] [address] [place], [address] VBG PO2 138 mmHg High 25-40 [facility] Comment on above: Performed By: #### L 9000.0810 #### [facility] [address] [place], [address] VBG SO2 99 High 50-70 [facility] Comment on above: Performed By: #### L 9000.0810 #### [facility] [address] [place], [address] Venous blood base excess jag surementOrdered By: Virgil Corrales on 05-11-2025 Base excess Calc (BldV) [Moles/Vol] -6 mmol/L Low -1.0-3.5 [facility] Venous blood bicarbonate jag surementOrdered By: Virgil Corrales on 05-11-2025 HCO3 (Bld) [Moles/Vol] 19 mmol/L Low 22-26 [facility] Venous blood oxygen saturati on measurementOrdered By: Virgil Corrales on 05-11-2025 Oxygen saturation in Blood 99 % High 50-70 [facility] Venous blood pH measurementO rdered By: Virgil Corrales on 05-11-2025 pH (BldV) 7.37 [pH] 7.32-7.42 [facility] Venous blood partial pressur e of carbon dioxide measurementOrdered By: Virgil Corrales on 05-11-2025 CO2 (BldV) [Partial pressure] 33.5 mm[Hg] Low 41-51 [facility] Venous blood partial pressur e of oxygen measurementOrdered By: Virgil Corrales on 05-11-2025 Oxygen (BldV) [Partial pressure] 138 mm[Hg] High 25-40 [facility] White blood cell (WBC) count Ordered By: Virgil Corrales on 05-11-2025 WBC (Bld) [#/Vol] 11.5 10*3/uL High 4.4-11.0 [facility] White blood cell countOrdere d By: Virgil Corrales on 05-11-2025 White blood cell count 0-5 SEEN /hpf 0-5 [facility] Emergency Department Summary on 05-08-2025 Emergency Department Summary [facility] Medical Records Department [address] [place] [address] Emergency Department Summary 05/08/25 MR#: [id number] Acct: [id number] Name: KATH ARRIAGA Rep #: [id number] : 1945 79 From: Kev Nelson DO [...] for Parasthesia, Weakness or Loss of Funtion [facility] Medical History (Updated 05/08/25 @ 14:[address] Kev Nelson, DO) Atherosclerosis of coronary artery of [place] heart without angina pectoris Obstructive sleep apnea [...] 1-10 0 11/08/20 11/08/20 History Or Fever pitfbuxa-kocz-gqal 8 mg-folic 400 1 tab PO DAILY [...] Denies ba (more content not included)... Normal [facility] Shoulder min 2 Viewson 05-08 Shoulder min 2 Views [facility] Services [address] [place] [address] Shoulder min 2 Views MR#: [id number] Acct: [id number] Name: KATH ARRIAGA Rep #: [id number] : 1945 F 79 From: Jg Talamantes MD PCP: Dr. Deb Tam MD Status: REG ER Study: Shoulder min 2 Views Date of Exam: 05/08/25 Exam# [id number] Ordering Dr: Kev Nelson DO PROCEDURE: SHOULDER [...] Degenerative changes of the spine. Reading Location: [facility] CC: Dr. Kev Nelson DO; Dr. Deb Tam MD Commutator Assembler: Signed Normal [facility] 25([place])D3 [facility] 2024 25-hydroxyvitamin D3 [Mass/Vol] 34.8 ng/mL Normal 31.0-80.0 [facility] Comment on above: Order Comment: Speci men Type: BLOOD SPECIMEN Ordering Facility: [facility] Address: [address] [place] [address] Performed By: #### 1 989-3 #### [facility] CLIA [id number] [address] [place] [address] [place] [address] [place] CBC W Auto Differential pane l (Bld)on 03-14-2025 Basophils (Bld) [#/Vol] 0.03 10*3/uL Normal <0.11 [facility] Comment on above: Order Comment: Speci men Type: BLOOD SPECIMEN Ordering Facility: [facility] Address: [address] [place] [address] Performed By: #### 5 7021-8 #### [facility] CLIA [id number] [address] [place] [address] [place] Basophils/100 WBC (Bld) 0.4 % Normal [facility] Comment on above: Order Comment: Speci men Type: BLOOD SPECIMEN Ordering Facility: [facility] Address: [address] [place] [address] Performed By: #### 5 7021-8 #### [facility] CLIA [id number] [address] [place] [address] [place] Differential cell count method Nom (Bld) Auto Normal [facility] Comment on above: Order Comment: Speci men Type: BLOOD SPECIMEN Ordering Facility: [facility] Address: [address] [place] [address] Performed By: #### 5 7021-8 #### [facility] CLIA [id number] [address] [place] [address] [place] Eosinophils (Bld) [#/Vol] 0.09 10*3/uL Normal <0.46 [facility] Comment on above: Order Comment: Speci men Type: BLOOD SPECIMEN Ordering Facility: [facility] Address: [address] [place] [address] Performed By: #### 5 7021-8 #### [facility] CLIA [id number] [address] [place] [address] [place] Eosinophils/100 WBC (Bld) 1.2 % Normal [facility] Comment on above: Order Comment: Speci men Type: BLOOD SPECIMEN Ordering Facility: [facility] Address: [address] [place] [address] Performed By: #### 5 7021-8 #### [facility] CLIA [id number] [address] [place] [address] [place] Erythrocyte distribution width (RBC) [Ratio] 13.2 % Normal 11.5-15.0 [facility] Comment on above: Order Comment: Speci men Type: BLOOD SPECIMEN Ordering Facility: [facility] Address: [address] [place] [address] Performed By: #### 5 7021-8 #### [facility] CLIA [id number] [address] [place] [address] [place] Hematocrit (Bld) [Volume fraction] 39.2 % Normal 36.0-46.0 [facility] Comment on above: Order Comment: Speci men Type: BLOOD SPECIMEN Ordering Facility: [facility] Address: [address] [place] [address] Performed By: #### 5 7021-8 #### [facility] CLIA [id number] [address] [place] [address] [place] Hemoglobin (Bld) [Mass/Vol] 13.2 g/dL Normal 11.5-15.5 [facility] Comment on above: Order Comment: Speci men Type: BLOOD SPECIMEN Ordering Facility: [facility] Address: [address] [place] [address] Performed By: #### 5 7021-8 #### [facility] CLIA [id number] [address] [place] [address] [place] Immature granulocytes (Bld) [#/Vol] 10*3/uL Normal <0.10 [facility] Comment on above: Order Comment: Speci men Type: BLOOD SPECIMEN Ordering Facility: [facility] Address: [address] [place] [address] Performed By: #### 5 7021-8 #### [facility] CLIA [id number] [address] [place] [address] [place] Immature granulocytes/100 WBC (Bld) 0.3 % Normal [facility] Comment on above: Order Comment: Speci men Type: BLOOD SPECIMEN Ordering Facility: [facility] Address: [address] [place] [address] Performed By: #### 5 7021-8 #### [facility] CLIA [id number] [address] [place] [address] [place] Lymphocytes (Bld) [#/Vol] 1.03 10*3/uL Normal 1.00-4.00 [facility] Comment on above: Order Comment: Speci men Type: BLOOD SPECIMEN Ordering Facility: [facility] Address: [address] [place] [address] Performed By: #### 5 7021-8 #### [facility] CLIA [id number] [address] [place] [address] [place] Lymphocytes/100 WBC (Bld) 14.1 % Normal [facility] Comment on above: Order Comment: Speci men Type: BLOOD SPECIMEN Ordering Facility: [facility] Address: [address] [place] [address] Performed By: #### 5 7021-8 #### [facility] CLIA [id number] [address] [place] [address] [place] MCH (RBC) [Entitic mass] 30.7 pg Normal 26.0-34.0 [facility] Comment on above: Order Comment: Speci men Type: BLOOD SPECIMEN Ordering Facility: [facility] Address: [address] [place] [address] Performed By: #### 5 7021-8 #### [facility] CLIA [id number] [address] [place] [address] [place] MCHC (RBC) [Mass/Vol] 33.7 g/dL Normal 30.5-36.0 [facility] Comment on above: Order Comment: Speci men Type: BLOOD SPECIMEN Ordering Facility: [facility] Address: [address] [place] [address] Performed By: #### 5 7021-8 #### [facility] CLIA [id number] [address] [place] [address] [place] MCV (RBC) [Entitic vol] 91.2 fL Normal 80.0-100.0 [facility] Comment on above: Order Comment: Speci men Type: BLOOD SPECIMEN Ordering Facility: [facility] Address: [address] [place] [address] Performed By: #### 5 7021-8 #### [facility] CLIA [id number] [address] [place] [address] [place] Monocytes (Bld) [#/Vol] 0.51 10*3/uL Normal <0.87 [facility] Comment on above: Order Comment: Speci men Type: BLOOD SPECIMEN Ordering Facility: [facility] Address: [address] [place] [address] Performed By: #### 5 7021-8 #### [facility] [facility] CLIA [id number] [address] [place] [address] [place] Monocytes/100 WBC (Bld) 7.0 % Normal [facility] Comment on above: Order Comment: Speci men Type: BLOOD SPECIMEN Ordering Facility: [facility] Address: [address] [place] [address] Performed By: #### 5 7021-8 #### [facility] CLIA [id number] [address] [place] [address] [place] Neutrophils (Bld) [#/Vol] 5.62 10*3/uL Normal 1.45-7.50 [facility] Comment on above: Order Comment: Speci men Type: BLOOD SPECIMEN Ordering Facility: [facility] Address: [address] [place] [address] Performed By: #### 5 7021-8 #### [facility] CLIA [id number] [address] [place] [address] [place] Neutrophils/100 WBC (Bld) 77.0 % Normal [facility] Comment on above: Order Comment: Speci men Type: BLOOD SPECIMEN Ordering Facility: [facility] Address: [address] [place] [address] Performed By: #### 5 7021-8 #### [facility] CLIA [id number] [address] [place] [address] [place] Nucleated RBC (Bld) [#/Vol] 10*3/uL Normal <0.01 [facility] Comment on above: Order Comment: Speci men Type: BLOOD SPECIMEN Ordering Facility: [facility] Address: [address] [place] [address] Performed By: #### 5 7021-8 #### [facility] CLIA [id number] [address] [place] [address] [place] Nucleated RBC/100 WBC (Bld) [Ratio] 0.0 /100 WBC Normal [facility] Comment on above: Order Comment: Speci men Type: BLOOD SPECIMEN Ordering Facility: [facility] Address: [address] [place] [address] Performed By: #### 5 7021-8 #### [facility] CLIA [id number] [address] [place] [address] [place] Platelet mean volume (Bld) [Entitic vol] 9.2 fL Normal 9.0-12.7 [facility] Comment on above: Order Comment: Speci men Type: BLOOD SPECIMEN Ordering Facility: [facility] Address: [address] [place] [address] Performed By: #### 5 7021-8 #### [facility] CLIA [id number] [address] [place] [address] [place] Platelets (Bld) [#/Vol] 258 10*3/uL Normal 150-400 [facility] Comment on above: Order Comment: Speci men Type: BLOOD SPECIMEN Ordering Facility: [facility] Address: [address] [place] [address] Performed By: #### 5 7021-8 #### [facility] CLIA [id number] [address] [place] [address] [place] RBC (Bld) [#/Vol] 4.30 10*6/uL Normal 3.90-5.20 [facility] Comment on above: Order Comment: Speci men Type: BLOOD SPECIMEN Ordering Facility: [facility] Address: [address] [place] [address] Performed By: #### 5 7021-8 #### [facility] CLIA [id number] [address] [place] [address] [place] WBC (Bld) [#/Vol] 7.30 10*3/uL Normal 3.70-11.00 [facility] Comment on above: Order Comment: Speci men Type: BLOOD SPECIMEN Ordering Facility: [facility] Address: [address] [place] [address] Performed By: #### 5 7021-8 #### [facility] CLIA [id number] [address] [place] [address] [place] CNOVon 03-14-2025 CNOV Office Visit (INTMWS) KATH ARRIAGA ([id number]) 1945 F [facility] Date Time Provider Department 03/14/25 2:00 PM OLGA GAITAN INTMWS During your visit today, we recorded the following information about you: Pulse Blood pressure Weight 90/minute 144/80 94.1 kg Olga Gaitan APRN.DIRECTOR OF MATERIALS 03/14/2025 3:06 PM Signed SUBJECTIVE Kath Arriaga [...] injury sustained years ago while working at [employer], which has contributed to her chronic pain. [...] (Patient not taking: Reported on 03/14/2025) Walker [facility] Walker with wheels and a seat Dx: [...] taking: Reported on 03/14/2025) Miscellaneous [employer] [facility] Boost Max 1 can twice daily Calcium [...] ER Latex (more content not included)... Normal [facility] Comprehensive metabolic 2000 panelon 03-14-2025 Albumin [Mass/Vol] 4.6 g/dL Normal 3.9-4.9 [facility] Comment on above: Order Comment: Speci men Type: BLOOD SPECIMEN Ordering Facility: [facility] Address: [address] [place] [address] Performed By: #### L IPNF, 32063-5, 41285-8, 3051-0 #### [facility] CLIA [id number] [address] [place] [address] [place] ALP [Catalytic activity/Vol] 86 U/L Normal 34-123 [facility] Comment on above: Order Comment: Speci men Type: BLOOD SPECIMEN Ordering Facility: [facility] Address: [address] [place] [address] Performed By: #### L IPNF, 37196-8, 90629-6, 3051-0 #### [facility] CLIA [id number] [address] [place] [address] [place] ALT [Catalytic activity/Vol] 13 U/L Normal 7-38 [facility] Comment on above: Order Comment: Speci men Type: BLOOD SPECIMEN Ordering Facility: [facility] Address: [address] [place] [address] Performed By: #### L IPNF, 82184-7, 10739-2, 3051-0 #### [facility] CLIA [id number] [address] [place], [place] [address] [place] Anion gap [Moles/Vol] 11 mmol/L Normal 8-15 [facility] Comment on above: Order Comment: Speci men Type: BLOOD SPECIMEN Ordering Facility: [facility] Address: [address] [place], [place] [address] Performed By: #### L IPNF, 08590-2, 48778-5, 3051-0 #### [facility] CLIA [id number] [address] [place], [place] [address] [place] AST [Catalytic activity/Vol] 20 U/L Normal 13-35 [facility] Comment on above: Order Comment: Speci men Type: BLOOD SPECIMEN Ordering Facility: [facility] Address: [address] [place], [place] [address] Performed By: #### L IPNF, 56105-6, 37732-9, 3051-0 #### [facility] CLIA [id number] [address] [place] [address] [place] Bilirubin [Mass/Vol] 0.2 mg/dL Normal 0.2-1.3 [facility] Comment on above: Order Comment: Speci men Type: BLOOD SPECIMEN Ordering Facility: [facility] Address: [address] [place] [address] Performed By: #### L IPNF, 12216-9, 31369-5, 3051-0 #### [facility] CLIA [id number] [address] [place] [address] [place] Calcium [Mass/Vol] 9.6 mg/dL Normal 8.5-10.2 [facility] Comment on above: Order Comment: Speci men Type: BLOOD SPECIMEN Ordering Facility: [facility] Address: [address] [place], [place] [address] Performed By: #### L IPNF, 14794-0, 52329-6, 3051-0 #### [facility] CLIA [id number] [address] [place], [place] [address] [place] Chloride [Moles/Vol] 100 mmol/L Normal 98-107 [facility] Comment on above: Order Comment: Speci men Type: BLOOD SPECIMEN Ordering Facility: [facility] Address: [address] [place] [address] Performed By: #### L IPNF, 39815-2, 69045-4, 3051-0 #### [facility] CLIA [id number] [address] [place] [address] [place] CO2 [Moles/Vol] 22 mmol/L Normal 22-30 [facility] Comment on above: Order Comment: Speci men Type: BLOOD SPECIMEN Ordering Facility: [facility] Address: [address] [place] [address] Performed By: #### L IPNF, 62471-7, 81992-8, 3051-0 #### [facility] CLIA [id number] [address] [place] [address] [place] Creatinine [Mass/Vol] 0.71 mg/dL Normal 0.58-0.96 [facility] Comment on above: Order Comment: Speci men Type: BLOOD SPECIMEN Ordering Facility: [facility] Address: [address] [place] [address] Performed By: #### L IPNF, 82711-6, 53601-8, 3051-0 #### [facility] CLIA [id number] [address] [place] [address] [place] Creatinine and Glomerular filtration rate.predicted panel (S/P/Bld) 86 mL/min/1.73m??? Normal >=60 [facility] Comment on above: Order Comment: Speci men Type: BLOOD SPECIMEN Ordering Facility: [facility] Address: [address] [place] [address] Result Comment: Renee mated Glomerular Filtration Rate [...] actual GFR. Performed By: #### L IPNF, 28816-1, 12238-6, 3051-0 #### [facility] CLIA [id number] [address] [place] [address] [place] Glucose [Mass/Vol] 99 mg/dL Normal 74-99 [facility] Comment on above: Order Comment: Sandy jackson Type: BLOOD SPECIMEN Ordering Facility: [facility] Address: [address] [place] [address] Result Comment: The [place] Diabetes Association (ADA) provides guidance for cutoff [...] Standards of Medical Care in Diabetes 2016, [place] Diabetes Association. Diabetes Care. 2016.39(Suppl 1). Performed By: #### L IPNF, 48110-0, 76975-3, 3051-0 #### [facility] CLIA [id number] [address] [place] [address] [place] Potassium [Moles/Vol] 5.1 mmol/L Normal 3.7-5.1 [facility] Comment on above: Order Comment: Margoi men Type: BLOOD SPECIMEN Ordering Facility: [facility] Address: [address] [place] [address] Performed By: #### L IPNF, 15820-9, 92366-1, 3051-0 #### [facility] CLIA [id number] [address] [place] [address] [place] Protein [Mass/Vol] 7.5 g/dL Normal 6.3-8.0 [facility] Comment on above: Order Comment: Sandy jackson Type: BLOOD SPECIMEN Ordering Facility: [facility] Address: [address] [place] [address] Performed By: #### L IPNF, 82647-7, 00599-8, 3051-0 #### [facility] CLIA [id number] [address] [place] [address] [place] Sodium [Moles/Vol] 133 mmol/L Low 136-144 [facility] Comment on above: Order Comment: Speci men Type: BLOOD SPECIMEN Ordering Facility: [facility] Address: [address] [place] [address] Performed By: #### L IPNF, 16939-6, 79922-8, 3051-0 #### [facility] CLIA [id number] [address] [place] [address] [place] Urea nitrogen [Mass/Vol] 32 mg/dL High 7-21 [facility] Comment on above: Order Comment: Speci men Type: BLOOD SPECIMEN Ordering Facility: [facility] Address: [address] [place] [address] Performed By: #### L IPNF, 93778-6, 45204-0, 3051-0 #### [facility] CLIA [id number] [address] [place] [address] [place] Ferritin SerPl-mCncon 2024 Ferritin [Mass/Vol] 85.9 ng/mL Normal 14.7-205.1 [facility] Comment on above: Order Comment: Speci men Type: BLOOD SPECIMEN Ordering Facility: [facility] Address: [address] [place] [address] Performed By: #### 2 276-4, 3024-7, 3016-3 #### [facility] CLIA [id number] [address] [place] [address] [place] Iron and Iron binding capaci ty panelon 03-14-2025 Iron [Mass/Vol] 44 ug/dL Normal 41-186 [facility] Comment on above: Order Comment: Speci men Type: BLOOD SPECIMEN Ordering Facility: [facility] Address: [address] [place] [address] Performed By: #### L IPUCHE, 75905-5, 12339-6, 305-0 #### [facility] CLIA [id number] [address] [place] [address] [place] Iron binding capacity [Mass/Vol] 331 ug/dL Normal 232-386 [facility] Comment on above: Order Comment: Speci men Type: BLOOD SPECIMEN Ordering Facility: [facility] Address: [address] [place], [place] [address] Performed By: #### L IPUCHE, 09253-0, 65339-1, 305-0 #### [facility] CLIA [id number] [address] [place], [place] [address] [place] Iron/TIBC [Molar ratio] 13.3 % Low 15.0-57.0 [facility] Comment on above: Order Comment: Speci men Type: BLOOD SPECIMEN Ordering Facility: [facility] Address: [address] [place], [place] [address] Performed By: #### L BINH, 23902-6, 55242-8, 305-0 #### [facility] CLIA [id number] [address] [place], [place] [address] [place] LIPID PANEL, NONFASTINGon Cholesterol [Mass/Vol] 178 mg/dL Normal <200 [facility] Comment on above: Order Comment: Speci men Type: BLOOD SPECIMEN Ordering Facility: [facility] Address: [address] [place] [address] Result Comment: <200 mg/dL, Desirable 200-239 mg/dL, Borderline high >239 mg/dL, High Performed By: #### L IPNF, 38319-5, 12899-0, 3051-0 #### [facility] CLIA [id number] [address] [place] [address] [place] HDL CHOLESTEROL, NF 69 mg/dL Normal >39 [facility] Comment on above: Order Comment: Sandy jackson Type: BLOOD SPECIMEN Ordering Facility: [facility] Address: [address] [place] [address] Result Comment: 40-5 9 mg/dL, Acceptable >59 mg/dL, High: Negative risk factor for coronary heart disease <40 mg/dL, Low: Positive risk factor for coronary heart disease Performed By: #### L BINH, 85640-7, 73005-7, 3051-0 #### [facility] CLIA [id number] [address] [place] [address] LDL CHOLESTEROL CALCULATED, NF 92 mg/dL Normal <100 [facility] Comment on above: Order Comment: Margojer jackson Type: BLOOD SPECIMEN Ordering Facility: [facility] Address: [address] [place] [address] Result Comment: <100 mg/dL, Optimal 100-129 mg/dL, Near optimal/above optimal 130-159 mg/dL, Borderline high 160-189 mg/dL, High >189 mg/dL, Very high Secondary prevention optimal LDL Cholesterol levels are recommended to be <70 mg/dL LDL cholesterol is calculated using the Cat-NIH equation. Performed By: #### L BINH, 57222-9, 07959-0, 305-0 #### [facility] CLIA [id number] [address] [place] [address] [place] LDL/HDL RATIO, NF 1.33 mg/dL Normal <2.54 [facility] Comment on above: Order Comment: Sandy jackson Type: BLOOD SPECIMEN Ordering Facility: [facility] Address: [address] [place] [address] Result Comment: Refe rence: 1. National Cholesterol Education Program ATP III Guideline At-A-Glance Quick Desk Reference: National Heart, Lung, and Blood [place]. National Institutes of Health. 2001: NIH Publication No. 01-3305. 2. An International Atherosclerosis Society position paper: global recommendations for the management of dyslipidemia: executive summary, Atherosclerosis. 2014: 232(2):410-413. Performed By: #### L IPNF, 38198-5, 18691-5, 3051-0 #### [facility] CLIA [id number] [address] [place] [address] [place] NON HDL CHOL, NF 109 mg/dL Normal <[address] [facility] Comment on above: Order Comment: Speci men Type: BLOOD SPECIMEN Ordering Facility: [facility] Address: [address] [place] [address] Result Comment: <130 mg/dL, Optimal 130-159 mg/dL, Near optimal/above optimal 160-189 mg/dL, Borderline high 190-219 mg/dL, High >219 mg/dL, Very high Secondary prevention optimal non HDL Cholesterol levels are recommended to be <100 mg/dL Performed By: #### L IPNF, 94939-9, 24394-8, 3051-0 #### [facility] CLIA [id number] [address] [place] [address] [place] T CHOL/HDL RATIO NF 2.58 mg/dL Normal <5.10 [facility] Comment on above: Order Comment: Speci men Type: BLOOD SPECIMEN Ordering Facility: [facility] Address: [address] [place] [address] Performed By: #### L IPNF, 17956-1, 00768-9, 3051-0 #### [facility] CLIA [id number] [address] [place] [address] [place] TRIGLYCERIDES, NF 96 mg/dL Normal <150 [facility] Comment on above: Order Comment: Speci men Type: BLOOD SPECIMEN Ordering Facility: [facility] Address: [address] [place] [address] Result Comment: <150 mg/dL, Normal 150-199 mg/dL, Borderline high 200-499 mg/dL, High >499 mg/dL, Very high Performed By: #### L IPNF, 39205-3, 49257-4, 3051-0 #### [facility] CLIA [id number] [address] [place] [id number] [address] [place] VLDL CHOLESTEROL, NF 15 mg/dL Normal <30 [facility] Comment on above: Order Comment: Speci men Type: BLOOD SPECIMEN Ordering Facility: [facility] Address: [address] [place] [address] Performed By: #### L IPNF, 81486-5, 98904-5, 3051-0 #### [facility] CLIA [id number] [address] [place] [address] [place] T3Free SerPl-mCncon 03-14-20 25 Free T3 [Mass/Vol] 2.4 pg/mL Normal 2.3-4.1 [facility] Comment on above: Order Comment: Speci men Type: BLOOD SPECIMENOrdering Facility: [facility] Address: [address] [place] [address] Performed By: #### L IPNF, 99861-7, 00794-2, 3051-0 ####[facility] [id number] [place] [address] [place] T4 Free SerPl-mCncon 025 Free T4 [Mass/Vol] 1.0 ng/dL Normal 0.9-1.7 [facility] Comment on above: Order Comment: Speci men Type: BLOOD SPECIMEN Ordering Facility: [facility] Address: [address] [place] [address] Performed By: #### 2 276-4, 3024-7, 3016-3 #### [facility] CLIA [id number] [address] [place] [address] [place] TSH SerPl-aCncon 03-14-2025 TSH Qn 2.490 m[IU]/L Normal 0.270-4.200 [facility] Comment on above: Order Comment: Speci men Type: BLOOD SPECIMEN Ordering Facility: [facility] Address: [address] [place] [address] Performed By: #### 2 276-4, 3024-7, 3016-3 #### [facility] CLIA [id number] [address] [place] [address] [place] CNOVon 07-13-2024 CNOV Office Visit (INTMWS) KATH ARRIAGA ([id number]) 1945 F [place] Date Time Provider Department 07/13/24 2:00 PM OLGA GAITAN INTMWS During your visit today, we recorded the following information about you: Pulse Blood pressure Weight 91/minute 144/80 91.2 kg Olga Gaitan APRN.DIRECTOR OF MATERIALS 07/13/2024 2:45 PM Signed SUBJECTIVE Kath Arriaga [...] 1 tablet by mouth as needed. Walker [facility] Walker with wheels and a seat Dx: [...] 2 cartons per day Miscellaneous [employer] [facility] Boost Max 1 can twice daily COMPOUNDED [...] ACTIVE PROBLEM LIST Coronary Artery Disease Involving [place] Coronary Artery of [place] Heart Without Angina Pectoris - 05/04/2020 Comment: [...] Current packs (more content not included)... Normal [facility] CBC W Auto Differential pane l (Bld)on 05-21-2022 Abs Immature Gran 0.03 k/uL <0.10 k/uL [facility] Basophils (Bld) [#/Vol] 0.04 10*3/uL <0.11 k/uL [facility] Basophils/100 WBC (Bld) 0.6 % C [facility] Differential cell count method Nom (Bld) Auto [facility] Eosinophils (Bld) [#/Vol] 0.13 10*3/uL <0.46 k/uL [facility] Eosinophils/100 WBC (Bld) 1.9 % [facility] Erythrocyte distribution width (RBC) [Ratio] 13.5 % 11.5 - 15.0 % [facility] Hematocrit (Bld) [Volume fraction] 41.0 % 36.0 - 46.0 % [facility] Hemoglobin (Bld) [Mass/Vol] 13.9 g/dL 11.5 - 15.5 g/dL [facility] Immature Gran % 0.4 % [facility] Lymphocytes (Bld) [#/Vol] 1.25 10*3/uL 1.00 - 4.00 k/uL [facility] Lymphocytes/100 WBC (Bld) 18.7 % [facility] MCH (RBC) [Entitic mass] 30.5 pg 26.0 - 34.0 pg [facility] MCHC (RBC) [Mass/Vol] 33.9 g/dL 30.5 - 36.0 g/dL [facility] MCV (RBC) [Entitic vol] 89.9 fL 80.0 - 100.0 fL [facility] Monocytes (Bld) [#/Vol] 0.52 10*3/uL <0.87 k/uL [facility] Monocytes/100 WBC (Bld) 7.8 % C [facility] Neutrophils (Bld) [#/Vol] 4.73 10*3/uL 1.45 - 7.50 k/uL [facility] Neutrophils/100 WBC (Bld) 70.6 % [facility] Nucleated RBC (Bld) [#/Vol] 10*3/uL <0.01 k/uL [facility] Nucleated RBC/100 WBC (Bld) [Ratio] 0.0 /100 WBC [facility] Platelet mean volume (Bld) [Entitic vol] 9.2 fL 9.0 - 12.7 fL [facility] Platelets (Bld) [#/Vol] 286 10*3/uL 150 - 400 k/uL [facility] RBC (Bld) [#/Vol] 4.56 10*6/uL 3.90 - 5.2 0 m/uL [facility] WBC (Bld) [#/Vol] 6.70 10*3/uL 3.70 - 11.00 k/uL [facility] Office Visit: Spine Visit- R sided low back painon 03-27-2017 Documentation of current medications (procedure) Done Invalid Interpretation Code [employer] Work Phone: Office Visit: Spine Visit- R sided low back painon 03-26-2017 Documentation of current medications (procedure) Done Invalid Interpretation Code [facility] Work Phone: Office Visit: Spine Visit- [...] smoker [facility] Work Phone: Tobacco use [facility] Former smoker Invalid Interpretation Code [facility] [...] Glucose mass conc 86 mg/dL Normal 70-110 [facility] Work Phone: Potassium 4.0 mmol/L Normal 3.5-5.1 [facility] Work Phone: Sodium 133 mmol/L Low 136-145 [facility] Work Phone: Urea nitrogen 18 mg/dL Normal 7-18 [facility] Work Phone: Vital Signs Date Time Vital Sign Value Performing Clinician Facility 05-11-2025 21:21-0400 Body temperature 98.6 [degF] Dr. Deb Tam MD Work Phone: [facility] 05-11-2025 21:21-0400 Diastolic blood pressure 78 mm[Hg] Dr. Deb Tam MD Work Phone: [facility] 05-11-2025 21:21-0400 Heart rate 90 /min Dr. Deb Tam MD Work Phone: [facility] 05-11-2025 21:21-0400 Respiratory rate 16 /min Dr. Deb Tam MD Work Phone: [facility] 05-11-2025 21:21-0400 SaO2% (BldA) [Mass fraction] 100 % Dr. Deb Tam MD Work Phone: [facility] 05-11-2025 21:21-0400 Systolic blood pressure 114 mm[Hg] Dr. Deb Tam MD Work Phone: [facility] 05-11-2025 16:54-0400 Body height 162.[address] Deb Tam MD Work Phone: [facility] 05-11-2025 16:54-0400 Body mass index (BMI) [Ratio] 36.5 kg/m2 Dr. Deb Tam MD Work Phone: 9(988)603-335365 [place] [address] 05-11-2025 16:54-0400 Body weight 96.[address] Deb Tam MD Work Phone: 7(174)877-658265 [place] [address] 05-08-2025 17:52-0400 Diastolic blood pressure 64 mm[Hg] Dr. Deb Tam MD Work Phone: 7(941)893-968565 [place] [address] 05-08-2025 17:52-0400 Heart rate 78 /min Dr. Deb Tam MD Work Phone: 7(348)772-578265 [place] [address] 05-08-2025 17:52-0400 Respiratory rate 16 /min Dr. Deb Tam MD Work Phone: 6(957)493-611665 [place] [address] 05-08-2025 17:52-0400 SaO2% (BldA) [Mass fraction] 98 % Dr. Deb Tam MD Work Phone: 8(726)195-274365 [place] [address] 05-08-2025 17:52-0400 Systolic blood pressure 141 mm[Hg] Dr. Deb Tam MD Work Phone: 2(832)963-917165 [place] [address] 05-08-2025 15:29-0400 Body temperature 98.4 [degF] Dr. Deb Tam MD Work Phone: 2(570)500-265465 [place] [address] 05-08-2025 13:58-0400 Body height 162.[address] Deb Tam MD Work Phone: 1(737)371-510965 [place] [address] 05-08-2025 13:58-0400 Body mass index (BMI) [Ratio] 35.7 kg/m2 Dr. Deb Tam MD Work Phone: 3(447)050-808565 [place] [address] 05-08-2025 13:58-0400 Body weight 94.[address] Deb Tam MD Work Phone: 6(762)100-481765 [place] [address] 03-14-2025 14:32-0400 Diastolic blood pressure 80 mm[Hg] Olga Divya BUSINESS AGENT.DIRECTOR OF MATERIALS Work Phone: [facility] 03-14-2025 14:32-0400 Systolic blood pressure 144 mm[Hg] Olga Divya BUSINESS AGENT.DIRECTOR OF MATERIALS Work Phone: [facility] 03-14-2025 14:23-0400 Body mass index (BMI) [Ratio] 34.52 kg/m2 Olga Divya BUSINESS AGENT.DIRECTOR OF MATERIALS Work Phone: [facility] 03-14-2025 14:23-0400 Body weight 94.1 kg Olga Divya BUSINESS AGENT.DIRECTOR OF MATERIALS Work Phone: [facility] 03-14-2025 14:23-0400 Heart rate 90 /min Olga Divya BUSINESS AGENT.DIRECTOR OF MATERIALS Work Phone: [facility] 03-14-2025 14:23-0400 SaO2% (BldA) [Mass fraction] 97 % Olga Divya BUSINESS AGENT.DIRECTOR OF MATERIALS Work Phone: [facility] 07-13-2024 13:48-0400 Diastolic blood pressure 80 mm[Hg] Olga Divya BUSINESS AGENT.DIRECTOR OF MATERIALS Work Phone: [facility] 07-13-2024 13:48-0400 Systolic blood pressure 144 mm[Hg] Olga Divya BUSINESS AGENT.DIRECTOR OF MATERIALS Work Phone: [facility] 07-13-2024 13:46-0400 Body mass index (BMI) [Ratio] 33.46 kg/m2 Olga Divya BUSINESS AGENT.DIRECTOR OF MATERIALS Work Phone: [facility] 07-13-2024 13:46-0400 Body weight 91.2 kg Olga Divya BUSINESS AGENT.DIRECTOR OF MATERIALS Work Phone: [facility] 07-13-2024 13:46-0400 Heart rate 91 /min Olga Divya BUSINESS AGENT.DIRECTOR OF MATERIALS Work Phone: [facility] 07-13-2024 13:46-0400 SaO2% (BldA) [Mass fraction] 96 % Olga Divya BUSINESS AGENT.DIRECTOR OF MATERIALS Work Phone: [facility] 09-02-2022 14:42-0500 Body temperature 97.81 [degF] Grisel Older BUSINESS AGENT.DIRECTOR OF MATERIALS Work Phone: [facility] 09-02-2022 14:42-0500 Body weight 97.52 kg Grisel Older BUSINESS AGENT.DIRECTOR OF MATERIALS Work Phone: [facility] 09-02-2022 14:42-0500 Diastolic blood pressure 72 mm[Hg] Grisel Older BUSINESS AGENT.DIRECTOR OF MATERIALS Work Phone: [facility] 09-02-2022 14:42-0500 Heart rate 93 /min Grisel Older BUSINESS AGENT.DIRECTOR OF MATERIALS Work Phone: [facility] 09-02-2022 14:42-0500 SaO2% (BldA) [Mass fraction] 98 % Grisel Older BUSINESS AGENT.DIRECTOR OF MATERIALS Work Phone: [facility] 09-02-2022 14:42-0500 Systolic blood pressure 104 mm[Hg] Grisel Older BUSINESS AGENT.DIRECTOR OF MATERIALS Work Phone: [facility] 05-21-2022 10:36-0400 Body weight 96.62 kg Jaja Kirkpatrick BUSINESS AGENT.GENERAL UTILITY WORKER Work Phone: [facility] 05-21-2022 10:36-0400 Diastolic blood pressure 80 mm[Hg] Jaja Kirkpatrick BUSINESS AGENT.GENERAL UTILITY WORKER Work Phone: [facility] 05-21-2022 10:36-0400 Heart rate 91 /min Jaja Kirkpatrick BUSINESS AGENT.GENERAL UTILITY WORKER Work Phone: [facility] 05-21-2022 10:36-0400 Respiratory rate 18 /min Jaja Kirkpatrick BUSINESS AGENT.GENERAL UTILITY WORKER Work Phone: [facility] 05-21-2022 10:36-0400 SaO2% (BldA) [Mass fraction] 95 % Jaja Kirkpatrick BUSINESS AGENT.GENERAL UTILITY WORKER Work Phone: [facility] 05-21-2022 10:36-0400 Systolic blood pressure 132 mm[Hg] Jaja Kirkpatrick BUSINESS AGENT.GENERAL UTILITY WORKER Work Phone: [facility] 03-03-2017 13:39-0400 BMI (Body Mass Index) 33.44 kg/m2 Daisy Jha DC [facility] Work Phone: 03-03-2017 13:39-0400 Body weight 91.17 kg Daisy Morelsi DC [facility] Work Phone: 03-03-2017 13:39-0400 BP Diastolic 79 mm[Hg] Daisy Dossi DC [facility] Work Phone: 03-03-2017 13:39-0400 BP Systolic 124 mm[Hg] Daisy Dossi DC [facility] Work Phone: 03-03-2017 13:39-0400 Weight 91.17 kg Daisy Morelsi DC [facility] Work Phone: 11-24-2013 13:06-0500 BMI (Body Mass Index) 35.59 kg/m2 [facility] Work Phone: 11-24-2013 13:06-0500 Body Temperature 96.8 [degF] [facility] Work Phone: 11-24-2013 13:06-0500 BP Diastolic 82 mm[Hg] [facility] Work Phone: 11-24-2013 13:06-0500 BP Systolic 131 mm[Hg] [facility] Work Phone: 11-24-2013 13:06-0500 Pulse (Heart Rate) 78 /min [facility] Work Phone: 11-24-2013 13:06-0500 Pulse Oximetry 97 % [facility] Work Phone: 11-24-2013 13:06-0500 Respiratory Rate 18 /min [facility] Work Phone: 11-24-2013 13:06-0500 Weight 96.66 kg [facility] Work Phone: 08-02-2013 16:02-0400 Height 165.1 cm Berta [facility] Work Phone: Encounters Encounter Date Encounter Type Care Provider Facility Start: 05-11-2025 Evaluation and management of inpatient Ifeanyi Shaikh Facility:[facility] Start: 05-10-2025 End: 05-10-2025 Refill Deb Tam MD Work Phone: [facility] [place] Comment on above: Refill Request Start: 05-08-2025 End: 05-08-2025 Emergency department patient visit Dr. Deb Tam MD Work Phone: -Emergency Department Work Phone: Start: 04-12-2025 End: 04-13-2025 Refill Deb Tam MD Work Phone: [facility] [place] Comment on above: Refill Request Start: 03-28-2025 End: 03-29-2025 Follow-up encounter Olga Gaitan BUSINESS AGENT.DIRECTOR OF MATERIALS Work Phone: [facility] [place] Start: 03-14-2025 End: 03-14-2025 ambulatory OLGA DIVYA Facility:[facility] Start: 03-14-2025 End: 03-14-2025 Patient encounter procedure Olga Greener BUSINESS AGENT.DIRECTOR OF MATERIALS Work Phone: [facility] [place] Comment on above: Generalized OA (Prim chrissie Dx); Fall, initial encounter; Acquired hypothyroidism; Essential hypertension; Mixed hyperlipidemia; Vitamin D deficiency; Encounter for immunization Start: 03-14-2025 End: 03-14-2025 ambulatory OLGA GAITAN Facility:[facility] Start: 02-21-2025 End: 02-21-2025 Refill Deb Tam MD Work Phone: [facility] [place] Comment on above: Refill Request Start: 12-20-2024 End: 12-20-2024 Refill Deb Tam MD Work Phone: [facility] [place] Comment on above: Refill Request Start: 11-09-2024 End: 11-09-2024 Refill Deb Tam MD Work Phone: [facility] [place] Comment on above: Refill Request Start: 07-13-2024 End: 07-13-2024 ambulatory OLGA GAITAN Facility:[facility] Start: 07-13-2024 End: 07-13-2024 Patient encounter procedure Olga Gaitan BUSINESS AGENT.DIRECTOR OF MATERIALS Work Phone: [facility] [place] Comment on above: Essential hypertensi on (Primary Dx); Acquired hypothyroidism; Vitamin D deficiency; Mixed hyperlipidemia; Iron deficiency anemia, unspecified iron deficiency anemia type; Generalized OA; Need for influenza vaccination; Need for COVID-19 vaccine; Encounter for screening examination for other mental health and behavioral disorders; Encounter for therapeutic drug monitoring Start: 05-10-2024 Refill Deb rivero MD Work Phone: [facility] [place] Comment on above: Refill Request Start: 04-02-2024 Refill Deb rivero MD Work Phone: [facility] [place] Comment on above: Refill Request Start: 03-10-2024 Telephone encounter Deb small MD Work Phone: [facility] [place] Comment on above: patient update/futur e apt Start: 02-24-2024 Refill Deb rivero MD Work Phone: [facility] [place] Comment on above: Refill Request Start: 01-26-2024 Refill Deb rivero MD Work Phone: [facility] [place] Comment on above: Refill Request Start: 12-29-2023 Refill Farhan read DO Work Phone: [facility] [place] Comment on above: Refill Request Start: 12-18-2023 Telephone encounter Deb small MD Work Phone: Pediatrics [place] Comment on above: Orders Start: 12-01-2023 Telephone encounter Deb small MD Work Phone: [facility] Start: 09-29-2023 Refill Deb rivero MD Work Phone: Family [facility] [place] Comment on above: Refill Request Start: 06-23-2023 Refill Olga Gaitan BUSINESS AGENT.DIRECTOR OF MATERIALS Work Phone: [facility] [place] Comment on above: Refill Request Start: 06-02-2023 Refill Olga Gaitan BUSINESS AGENT.DIRECTOR OF MATERIALS Work Phone: [facility] [place] Comment on above: Refill Request Start: 05-28-2023 Refill Deb rivero MD Work Phone: [address] [place] [address] Comment on above: Refill Request Start: 05-08-2023 Refill Deb rivero MD Work Phone: [facility] [place] Comment on above: Refill Request Start: 04-01-2023 Refill Deb rivero MD Work Phone: [facility] [place] Comment on above: Refill Request Start: 11-08-2022 Refill Deb rivero MD Work Phone: [facility] [place] Comment on above: Refill Request Start: 09-02-2022 End: 09-02-2022 Patient encounter procedure Griselnadine Barry BUSINESS AGENT.DIRECTOR OF MATERIALS Work Phone: [facility] [place] Comment on above: Partial thickness bu rn of lower extremity, right, initial encounter (Primary Dx) Start: 08-30-2022 Telephone encounter Deb small MD Work Phone: [facility] [place] Comment on above: Patient Update Start: 05-21-2022 End: 05-21-2022 Patient encounter procedure Jaja Kirkpatrick BUSINESS AGENT.GENERAL UTILITY WORKER Work Phone: [facility] [place] Comment on above: Encounter for immuni zation (Primary Dx); Mixed hyperlipidemia; Dysmetabolic syndrome X; Vitamin D deficiency; Acquired hypothyroidism; Essential hypertension; Peptic ulcer; Coronary artery disease involving [place] coronary artery of [place] heart without angina pectoris; Recurrent major depressive disorder, in partial remission (HCC); Other insomnia Start: 03-07-2022 Refill Deb rivero MD Work Phone: [facility] [place] Comment on above: Refill Request Start: 12-31-2021 Refill Deb rivero MD Work Phone: [facility] [place] Comment on above: Refill Request Start: 07-16-[address] Yi Tam MD Work Phone: [facility] Procedures Date Procedure Procedure Detail Performing Clinician [...] D-19 VACCINE AGE 12+ YR Olga Gaitan APRN.DIRECTOR OF MATERIALS Work Phone: Start: 03-27-2017 End: 03-27-2017 Documentation [...] Author Start: 03-14-2028 Diabetes Screening Diabetes Screening [facility] Start: 10-28-2026 Diabetes Screening Diabetes Screening [facility] Start: 03-14-2026 Hepatitis B surface antibody level LDL Cholesterol [facility] Start: 12-27-2025 Anxiety Screening Anxiety Screening [facility] Start: 07-13-2025 Annual PCP Team Chronic Disease Visit Annual PCP Team Chronic Disease Visit [facility] Start: 06-27-2025 [facility]enza [facility] Start: 05-21-2025 DIABETES SCREEN DIABETES SCREEN [facility] Start: 05-21-2025 Diabetes Screening Diabetes Screening [facility] Start: 05-16-2025 End: 05-16-2025 Patient encounter procedure 05/16/2025 1:40 PM EDT Office Visit [facility] [place] [address] [place] [address] Jaja Kirkpatrick APRN.GENERAL UTILITY WORKER [address] [place] [address] 2 month follow up [facility] [place] Comment on above: 2 month follow up Start: 05-11-2025 Computed tomography of abdomen and pelvis with intravenous contrast Abdomen/Pelvis W IV Cont ONLY [facility] Start: 05-11-2025 CT Abdomen and Pelvis W contrast IV [facility] Start: 05-11-2025 Measurement of occult blood in stool specimen using immunoassay [facility] Start: 05-11-2025 Osmolality measurement, serum [facility] Start: 05-11-2025 Osmolality of Urine [facility] Start: 05-11-2025 Verification routine [facility] Start: 05-11-2025 Admission procedure [facility] Start: 05-11-2025 Hospital admission, emergency, from emergency room, medical nature [facility] Start: 05-11-2025 [facility] Start: 05-11-2025 Consultation [facility] Start: 05-11-2025 End: 05-11-2025 [facility] Start: 05-11-2025 Thyroid stimulating hormone measurement [facility] Start: 05-11-2025 Bacteria identified in Blood by Culture Blood Culture [facility] Start: 05-08-2025 [facility] Start: 03-14-2025 End: 03-14-2025 Patient encounter procedure 03/14/2025 2:00 PM EDT Office Visit [facility] [place] [address] [place] [address] Olga Gaitan APRN.DIRECTOR OF MATERIALS [address] [place] [address] 6m f/u [facility] [place] Comment on above: 6m f/u Start: 02-01-2025 End: 02-01-2025 Patient encounter procedure 02/01/2025 2:00 PM EDT Office Visit [facility] [place] [address] [place] [address] Olga Gaitan APRN.DIRECTOR OF MATERIALS [address] [place] [address] 6m f/u [facility] [place] Comment on above: 6m f/u Start: 01-10-2025 End: 01-10-2025 Patient encounter procedure 01/10/2025 4:20 PM EDT Office Visit [facility] [place] [address] [place] [address] Deb Tam MD [address] [place] [address] 6 month follow up [facility] [place] Comment on above: 6 month follow up Start: 01-10-2025 Covid-19 Vaccine () Covid-19 Vaccine () [facility] Start: 12-27-2024 End: 03-28-2025 25-hydroxyvitamin D3 [Mass/volume] in Serum or Plasma VITAMIN D 25 HYDROXY Lab Routine Vitamin D deficiency Expected: 12/27/2024, Expires: 03/28/2025 [facility] Comment on above: Expected: 12/27/2024, Expires: Start: 12-27-2024 End: 03-28-2025 CBC W Auto Differential panel - Blood COMPLETE BLOOD COUNT AND DIFFERENTIAL Lab Routine Encounter for therapeutic drug monitoring Iron deficiency anemia, unspecified iron deficiency anemia type Expected: 12/27/2024, Expires: 03/28/2025 [facility] Work Phone: Comment on above: Expected: 12/27/2024, Expires: Start: 12-27-2024 End: 03-28-2025 Comprehensive metabolic 2000 panel - Serum or Plasma COMPREHENSIVE METABOLIC PANEL Lab Routine Encounter for therapeutic drug monitoring Expected: 12/27/2024, Expires: 03/28/2025 [facility] Comment on above: Expected: 12/27/2024, Expires: Start: 12-27-2024 End: 03-28-2025 Ferritin [Mass/volume] in Serum or Plasma FERRITIN Lab Routine Iron deficiency anemia, unspecified iron deficiency anemia type Expected: 12/27/2024, Expires: 03/28/2025 [facility] Comment on above: Expected: 12/27/2024, Expires: Start: 12-27-2024 End: 03-28-2025 Iron and Iron binding capacity panel - Serum or Plasma IRON AND TIBC Lab Routine Iron deficiency anemia, unspecified iron deficiency anemia type Expected: 12/27/2024, Expires: 03/28/2025 [facility] Comment on above: Expected: 12/27/2024, Expires: Start: 12-27-2024 End: 03-28-2025 LIPID PANEL, NONFASTING LIPID PANEL, NONFASTING Lab Routine Mixed hyperlipidemia Expected: 12/27/2024, Expires: 03/28/2025 [facility] Comment on above: Expected: 12/27/2024, Expires: Start: 12-27-2024 End: 03-28-2025 Thyrotropin [Units/volume] in Serum or Plasma THYROID STIMULATING HORMONE Lab Routine Acquired hypothyroidism Expected: 12/27/2024, Expires: 03/28/2025 [facility] Comment on above: Expected: 12/27/2024, Expires: Start: 12-27-2024 End: 03-28-2025 Thyroxine (T4) free [Mass/volume] in Serum or Plasma T4 FREE/FREE THYROXINE Lab Routine Acquired hypothyroidism Expected: 12/27/2024, Expires: 03/28/2025 [facility] Comment on above: Expected: 12/27/2024, Expires: Start: 12-27-2024 End: 03-28-2025 Triiodothyronine (T3) Free [Mass/volume] in Serum or Plasma T3, FREE Lab Routine Acquired hypothyroidism Expected: 12/27/2024, Expires: 03/28/2025 [facility] Comment on above: Expected: 12/27/2024, Expires: Start: 10-28-2024 Annual PCP Team Chronic Disease Visit Annual PCP Team Chronic Disease Visit [facility] Start: 10-28-2024 Hepatitis B surface antibody level LDL Cholesterol [facility] Start: 10-27-2024 Advance Directive Discussion Advance Directive Discussion [facility] Start: 10-27-2024 Medicare Advantage Annual Wellness Visit Medicare Advantage Annual Wellness Visit [facility] Start: 07-13-2024 End: 07-13-2024 Patient encounter procedure 07/13/2024 2:00 PM EDT Office Visit [facility] [place] [address] [place] [id number] Olga Gaitan APRN.DIRECTOR OF MATERIALS [address] [place], [place] [address] follow up hypertension/med check [facility] [place] Comment on above: follow up hypertension/med check Start: 06-27-2024 Influenza [facility] Start: 03-26-2024 End: 03-26-2024 Patient encounter procedure 03/26/2024 3:40 PM EDT Office Visit [facility] [place] [address] [place] [address] Deb Tam MD [address] [place] [address] follow up [facility] [place] Comment on above: follow up Start: 03-22-2024 DIABETES SCREEN DIABETES SCREEN [facility] Start: 02-26-2024 Covid-19 Vaccine () Covid-19 Vaccine () [facility] Start: 10-27-2023 SHINGRIX VACCINE (1 of 2) SHINGRIX VACCINE (1 of 2) [facility] Comment on above: Postponed from 1993 (Insurance Cov erage) Start: 10-27-2023 Urine microalbumin profile [facility] Comment on above: Postponed from 11/23/2013 (Insurance Cov erage) Start: 09-02-2023 ANNUAL PCP TEAM CHRONIC DISEASE VISIT ANNUAL PCP TEAM CHRONIC DISEASE VISIT [facility] Start: 09-02-2023 BP CONTROLLED (<130/80) BP CONTROLLED (<130/80) [facility] Start: 06-27-2023 Covid-19 Vaccine () Covid-19 Vaccine () [facility] Start: 06-27-2023 Influenza vaccination [facility] Start: 05-21-2023 BP CONTROLLED (<130/80) BP CONTROLLED (<130/80) [facility] Start: 05-21-2023 Hepatitis B surface antibody level LDL CHOLESTEROL [facility] Start: 05-18-2023 COVID-19 VACCINE (5 - Pfizer series) COVID-19 VACCINE (5 - Pfizer series) [facility] Start: 10-27-2022 ADVANCE DIRECTIVE DISCUSSION ADVANCE DIRECTIVE DISCUSSION [facility] Start: 09-21-2022 COVID-19 VACCINE (4 - Booster for Pfizer series) COVID-19 VACCINE (4 - Booster for Pfizer series) [facility] Start: 07-16-2022 COVID-19 VACCINE (4 - Booster for Pfizer series) COVID-19 VACCINE (4 - Booster for Pfizer series) [facility] Start: 06-27-2022 Influenza vaccination [facility] Start: 06-05-2022 ANNUAL PCP TEAM CHRONIC DISEASE VISIT ANNUAL PCP TEAM CHRONIC DISEASE VISIT [facility] Start: 06-05-2022 SHINGRIX VACCINE (1 of 2) SHINGRIX VACCINE (1 of 2) [facility] Comment on above: Postponed from 1993 (Insurance Cov erage) Start: 06-05-2022 Urine microalbumin profile DTAP,TDAP,TD (1 - Tdap) [facility] Comment on above: Postponed from 11/23/2013 (Insurance Cov erage) Start: 05-21-2022 End: 07-21-2022 Comprehensive metabolic 2000 panel - Serum or Plasma [facility] Work Phone: Comment on above: Expected: 05/21/2022, Expires: 2 Start: 05-21-2022 End: 07-21-2022 Hemoglobin A1c in Blood [facility] Work Phone: Comment on above: Expected: 05/21/2022, Expires: 2 Start: 05-21-2022 End: 07-21-2022 Lipid 1996 panel - Serum or Plasma [facility] Work Phone: Comment on above: Expected: 05/21/2022, Expires: 2 Start: 05-21-2022 End: 07-21-2022 Magnesium [Mass/volume] in Serum or Plasma [facility] Work Phone: Comment on above: Expected: 05/21/2022, Expires: 2 Start: 05-21-2022 End: 07-21-2022 Thyrotropin [Units/volume] in Serum or Plasma [facility] Work Phone: Comment on above: Expected: 05/21/2022, Expires: 2 Start: 05-21-2022 End: 07-21-2022 Thyroxine (T4) free [Mass/volume] in Serum or Plasma [facility] Work Phone: Comment on above: Expected: 05/21/2022, Expires: 2 Start: 10-27-2021 ADVANCE DIRECTIVE DISCUSSION ADVANCE DIRECTIVE DISCUSSION [facility] Start: 07-29-2021 COVID-19 VACCINE (3 - Booster for Pfizer series) COVID-19 VACCINE (3 - Booster for Pfizer series) [facility] Start: 05-04-2021 Hepatitis B surface antibody level LDL CHOLESTEROL [facility] Start: 2018 RSV Vaccine (1 - 1-dose 75+ series) RSV Vaccine (1 - 1-dose 75+ series) [facility] Start: 03-27-2017 End: 03-27-2017 Appointment Appointment [facility] [...] up Appt 2x/week Follow up Appt 2x/week [facility] Work Phone: Start: 03-10-2017 End: 03-10-2017 Appointment Appointment [facility] Work Phone: Start: 03-10-2017 End: 03-10-2017 Appointment Appointment [facility] Work Phone: Start: 03-10-2017 End: 03-10-2017 Follow up Appt 3x/week Follow up Appt 3x/week [facility] Work Phone: Start: 03-05-2017 End: 03-06-2017 Follow up Appt 2x/week Follow up Appt 2x/week [facility] Work Phone: Start: 03-03-2017 End: 03-03-2017 Appointment Appointment [facility] Work Phone: Start: 03-03-2017 End: 03-03-2017 Follow up Appt 3x/week Follow up Appt 3x/week [facility] Work Phone: Start: 11-23-2013 Urine microalbumin profile [facility] Start: 08-02-2013 End: 08-02-2013 Ct maxillofacial w/o dye CT Sinuses [employer] Work Phone: Start: 08-02-2013 End: 08-02-2013 MRSA presence *MRSAD - M R Staph Aureus DNA by PCR [employer] Work Phone: Start: 2003 RSV Vaccine (1 - 1-dose 60+ series) RSV Vaccine (1 - 1-dose 60+ series) [facility] Start: 1993 SHINGRIX VACCINE (1 of 2) SHINGRIX VACCINE (1 of 2) [facility] Start: 1961 Anxiety Screening Anxiety Screening [facility] Start: 1961 BP CONTROLLED (<130/80) BP CONTROLLED (<130/80) [facility] inic Folate [Moles/volume ] in Serum or Plasma [facility] Hemoglobin A1c/Hemoglobin.total in Blood [facility] Iron [Mass/mass] in Unspecified specimen [facility] Magnesium measurement [facility] r [facility] Patient Education ED Fracture, Shoulder [facility] Work Phone: PFIZER-BIONTECH COVI D-19 VACCINE AGE 12+ YR (COMIRNATY) PFIZER-BIONTECH COVID-19 VACCINE AGE 12+ YR (COMIRNATY) Immunization/Injection Routine Encounter for immunization 1 Occurrences starting 03/14/2025 [facility] Work Phone: Comment on above: 1 Occurrences starting 03/14/2025 [facility] Immunizations Immunization Date Immunization Notes Care Provider Michelle lanza 07-13-2024 COVID-19 vaccine, ag e 12+ yr (PFIZER-BIONTECH) Olga Gaitan BUSINESS AGENT.DIRECTOR OF MATERIALS Work Phone: [facility] 07-13-2024 influenza, high dose seasonal, preservative-free Olga Gaitan BUSINESS AGENT.DIRECTOR OF MATERIALS Work Phone: [facility] 07-13-2024 influenza virus vacc ine, unspecified formulation Deb Tam MD Work Phone: [facility] 10-28-2023 COVID-19 vaccine, ag e 12+ yr, season (PFIZER-BIONTECH) Deb Tam MD Work Phone: [facility] 10-28-2023 influenza (HD-IIV4) vaccine, age 65+ yr, high dose, quadrivalent, PF (FLUZONE HIGH-DOSE) Deb Tam MD Work Phone: [facility] 10-28-2023 influenza virus vacc ine, unspecified formulation Deb Tam MD Work Phone: [facility] 01-16-2023 COVID-19 vaccine, ag e 12+ yr, bivalent (PFIZER-BIONTECH) Deb Tam MD Work Phone: [facility] Work Phone: 01-16-2023 influenza (HD-IIV4) vaccine, age 65+ yr, high dose, quadrivalent, PF (FLUZONE HIGH-DOSE) Deb Tam MD Work Phone: [facility] Work Phone: 01-16-2023 influenza virus vacc ine, unspecified formulation Deb Tam MD Work Phone: [facility] 05-21-2022 COVID-19 vaccine, ag e 12+ yr ([employer] - [facility]) Jaja Kirkpatrick BUSINESS AGENT.GENERAL UTILITY WORKER Work Phone: [facility] 07-25-2020 influenza, high-dose , quadrivalent vaccine (FLUZONE HIGH DOSE QUADRIVALENT) Deb Tam MD Work Phone: [facility] Work Phone: 07-24-[address] Deb Tam MD Work Phone: [facility] 07-24-2020 influenza, seasonal, injectable, preservative free Deb Tam MD Work Phone: [facility] Work Phone: 07-29-2018 Seasonal trivalent influenza vaccine, adjuvanted, preservative free Deb Tam MD Work Phone: [facility] 07-27-[address] Dbe Tam MD Work Phone: [facility] 07-27-2018 influenza, seasonal, injectable, preservative free Deb Tam MD Work Phone: [facility] Work Phone: 07-29-2017 influenza, injectabl e, quadrivalent, preservative free Olga Gaitan BUSINESS AGENT.DIRECTOR OF MATERIALS Work Phone: [facility] 08-05-2016 influenza, high dose seasonal, preservative-free Deb Tam MD Work Phone: [facility] 09-06-2015 influenza, seasonal, injectable Deb Tam MD Work Phone: [facility] 08-21-2015 influenza, injectabl e, quadrivalent, preservative free Dr. Deb Tam MD Work Phone: [facility] 08-21-2015 influenza, seasonal, injectable, preservative free Deb Tam MD Work Phone: [facility] Work Phone: 07-11-2015 pneumococcal conjuga te vaccine, 13 valent Deb Tam MD Work Phone: [facility] 12-26-2014 pneumococcal conjuga te vaccine, 13 valent Deb Tam MD Work Phone: [facility] 09-03-2014 influenza, seasonal, injectable Deb Tam MD Work Phone: [facility] 11-22-2013 tetanus and diphther ia toxoids, adsorbed, preservative free, for adult use (2 Lf of tetanus toxoid and 2 Lf of diphtheria toxoid) Deb Tam MD Work Phone: [facility] 08-27-[address] Deb Tam MD Work Phone: [facility] 08-27-2013 influenza virus vacc ine, unspecified formulation Deb Tam MD Work Phone: [facility] Work Phone: 08-04-2012 influenza virus vacc ine, unspecified formulation Deb Tam MD Work Phone: [facility] 01-19-2012 pneumococcal polysaccharide vaccine, 23 valent Deb Tam MD Work Phone: [facility] 01-19-2012 pneumococcal vaccine , unspecified formulation Dr. Deb Tam MD Work Phone: [facility] 09-19-2010 influenza virus vacc ine, unspecified formulation Deb Tam MD Work Phone: [facility] Work Phone: 09-19-2010 pneumococcal polysaccharide vaccine, 23 valent Deb Tam MD Work Phone: [facility] Work Phone: 08-09-2009 influenza virus vacc ine, unspecified formulation Deb Tam MD Work Phone: [facility] Work Phone: 09-03-2005 influenza virus vacc ine, unspecified formulation Deb Tam MD Work Phone: [facility] Work Phone: Payers Date Payer Category Payer Self-pay 2021 Medicaid [id number] 2021 Medicare UHC MEDICARE MYC ARE [facility] MEDICARE [id number] 2021-Present [phone] [address] [place] [address] Medicare [id number] 2021 Medicare (Managed Care) [facility] MEDICARE [id number] 2021 Medicare [id number] 2019 Medicare [id number] 2013 Medicare [id number] 2013 Medicaid [id number] Unknown [id number] Unknown [id number] Social History Date Type Detail Facility Start: 03-27-2012 End: 05-11-2025 Tobacco smoking status NHIS Ex-smoker [facility] Work Phone: Start: 10-27-1962 End: 10-27-1982 History of tobacco use Current smoker [facility] Work Phone: Start: 10-27-1962 End: 10-27-1982 History of tobacco use Cigarette Smoker [facility] Work Phone: Start: 07-02-2021 End: 03-14-2025 Alcohol intake Current non-drinker of alcohol (finding) [facility] Start: 1945 Sex Assigned At Not on file [facility] Start: 11-03-2021 End: 12-03-2021 Exposure to SARS-CoV-2 (event) Not sure [facility] Start: 03-27-2012 End: 10-28-2023 Cigarettes smoked current (pack per day) - Reported 1 [facility] Start: 03-27-2012 End: 03-14-2025 Tobacco use and exposure Smokeless tobacco non-user [facility] Start: 01-16-2023 End: 10-28-2023 Tobacco use panel [facility] National Score (1-10 0), lower number is lower risk 64 [facility] Start: 09-05-2022 Alcohol Alcohol [facility] Start: 11-08-2020 Drugs Drugs [facility] Start: 11-08-2020 Lives Lives [facility] Start: 11-08-2020 Tobacco Use Tobacco Use [facility] Start: 1945 Sex Assigned At Female [facility] Medical Equipment Procedure Code Equipment Code Equipment [...] of uncemented total hip replacement RESTOR ADM/MDM [id number] FDA Start: 08-11-2020 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 MODULAR HIP SYSTEM FDA Start: 08-11-2020 Revision of uncemented total hip replacement GNOSTICISM MODULAR HIP SYSTEM FDA Start: 08-11-2020 Revision [...] of uncemented total hip replacement RESTOR ADM/MDM [id number] FDA Start: 08-11-2020 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 MODULAR HIP SYSTEM FDA Start: 08-11-2020 Revision of uncemented total hip replacement GNOSTICISM MODULAR HIP SYSTEM FDA Start: 08-11-2020 6.5 HEX SCREW FDA Start: 08-02-2020 STEM FDA Start: 08-02-2020 yazidi adm/ mdm x3 insert FDA Start: 08-02-2020 [...] FDA Start: 08-02-2020 STEM FDA Start: 08-02-2020 yazidi adm/ mdm x3 insert FDA Start: 08-02-2020 [...] 04/11/2015 11:44 AM Catherine Dominguez LPN No [facility] 04-11-2015 Do you have serious difficulty walking or climbing stairs No 04/11/2015 11:44 AM Catherine Dominguez LPN No [facility] 04-11-2015 Do you have difficul ty dressing or bathing No 04/11/2015 11:44 AM Catherine Dominguez LPN [facility] 04-11-2015 Because of a physica l, mental, or emotional condition, do you have difficulty doing errands alone such as visiting a physician's office or shopping No 04/11/2015 11:44 AM Catherine Dominguez LPN No [facility] 12-26-2014 Are you blind, or do you have serious difficulty seeing, even when wearing glasses No 12/26/2014 2:33 PM Catherine Gar LPN No [facility] Mental Status Date Assessment Result Facility 05-11-2025 Cognitive function Level Of Cons ciousness Awake;Alert;Appropriate [facility] Work Phone: 04-11-2015 Because of a physica l, mental, or emotional condition, do you have serious difficulty concentrating, remembering, or making decisions No 04/11/2015 11:44 AM Catherine Dominguez LPN [facility] Clinical Notes 01-03-2022 to 05-11-2025 Note Date & Type Note Facility 05-11-2025 Discharge summary [facility] 05-11-2025 Radiology Diagnostic study note [facility] Imaging Services [address] [place] [address] Brain/Head without Contrast MR#: [id number] Acct: [id number] Name: KATH ARRIAGA Rep #: [id number] : 1945 F 79 From: Jason Godwin MD PCP: Dr. Deb Tam MD Status: RE G ER Study:Brain/Head without Contrast Date of Exa m: 05/11/25 Exam# [id number] Ordering Dr: Thuan Corrales DO PROCEDURE: BRAIN/HEAD [...] theright basal ganglia. Atherosclerotic vascular calcifications. Absent [place] ocular lenses. Intact skull base and calvarium. Clear paranasal sinuses and mastoid air cells. CT/Brain/Head without Contrast IMPRESSION: 1. No evidence of acute intracranial pathology. 2. Moderate-advanced volume loss and chronic small-vessel ischemic changes. Reading Location: [id number] CC: Dr. Deb Tam MD; Dr. Virgil Corrales DO ~ Commutator Assembler: Signed [facility] 05-11-2025 Discharge summary Note Date/Time May 11, 2025 9:21pm [facility] Medical Records Department [address] [place] [address] Emergency Department Summary 05/11/25 MR#: [id number] Acct: [id number] Name: KATH ARRIAGA Rep #:[id number] : 1945 79 From: Virgil Martinez PCP: Dr. Deb Tam MD Status:AD M IN Location: MS3 [id number] [facility] History of Present Illness Chief Complaint: Weakness [facility] Medical History Atherosclerosis of coronary artery of [place] heart without angina pectoris Obstructive sleep apnea [...] Pain 1-10 11/08/20 11/08/20 History Or Fever klnyzyku-huau-csqb 8 mg-folic 400 1 tab PO DAILY [...] Pulse Ox 99 100 Oxygen Delivery Method [place] Narrative Medical decision making narrative: HISTORY OF [...] Patient's family Consults: Internal medicine (Dr. Mace) [facility] Narrative: The patient was initially hemodynamically [...] Elevated lactic acid level Dispo: Admit to [facility] This note was generated with [employer] dictation software. It may contain incorrectwords, spelling, [...] 83.7 H Lymph % (Auto) 7.0 L [place] % (Auto) 8.4 Eos % (Auto) 0.3 [...] Clarity Cloudy Urine pH 5.0 Ur Specific Roy 1.020 Urine Protein 30 H Urine Glucose [...] and chronic small-vessel ischemic changes. Reading Location: [facility] Discharge Plan Triage Chief Complaint: Weakness ED Provider: Virgil Corrales Dx/Rx/DC Orders Primary Care Provider: Deb Tam What to do if you have Problems For any increased pain, shortness of breath, bleeding, nausea or vomiting, chestpain, or any unexpected problems, contact your Primary Care Provider. Call [facility] ([phone]) or report to the closest Emergency Room. Call 911 if necessary. 05/11/252120 <Electronically signed by Virgil Corrales DO> Cosigner Signature (if applicable): CC: Dr. Deb Tam MD ~ Signed [facility] Work Phone: 1(746) 864-156707-16-2025 Evaluation note* Diagnosis Onset Date Resolution Status [...] 8:45pm Sleep apnea chronic May 11 8:45pm [facility] Work Phone: 1(719) 596-996407-15-2025 Telephone encounter Note* Telephone Encounter - Olga [...] Olga Troy May 10, 2025 2:23 PM [facility]07-15-2025 Miscellaneous Notes* Telephone Encounter - Olga Astudillo [...] 1 tablet by mouth once daily. Olga Tory May 10, 2025 2:23 PM documented in this encounterC[facility] Discharge summary [facility] Medical Records Department [address] [place] [address] Emergency Department Summary 05/08/25 MR#: [id number] Acct: [id number] Name: KATH ARRIAGA Rep #:[id number] : 1945 79 From: Kev Martinez PCP: [...] for Parasthesia, Weakness or Loss of Funtion [facility] Medical History (Updated 05/08/25 @ 14:[address] Kev Nelson, DO) Atherosclerosis of coronary artery of [place] heart without angina pectoris Obstructive sleep apnea [...] Pain 1-10 11/08/20 11/08/20 History Or Fever jcbvjdst-hojm-svaf 8 mg-folic 400 1 tab PO DAILY [...] given a prescription for short course of [place]. Patient was instructed to use ice to the area. Patient was instructed to [facility] in 5 to 7 days. [...] 27 MG tablet 27 mg PO DAILY smiuqpxz-txe-kkjx-FA-vit K-lut 1 EACH tablet 1 tab PO [...] Active Staff] - 3-5 Days Print Language: Niuean Disposition Disposition: Home, Self Care What to do if you have Problems For any increased pain, shortness of breath, bleeding, nausea or vomiting, chestpain, or any unexpected problems, contact your Primary Care Provider. Call [facility] ([phone]) or report tothe closest Emergency Room. Call 911 if necessary. 05/08/25 1714 Cosigner Signature (if applicable): CC: Dr. Deb Tam MD ~ Signed [facility]07-13-2025 Radiology Diagnostic study note [facility] Imaging Services [address] [place] [address] Shoulder min 2 Views MR#: [id number] Acct: [id number] Name: KATH ARRIAGA Rep #: [id number] : 1945 F 79 From: Yazmin Talamantes MD PCP: Dr. Deb Tam MD Status: RE G ER Study:Shoulder min 2 Views Date of Exam: 05/08/25 Exam# [id number] Ordering Dr: Kev Nelson DO PROCEDURE: SHOULDER [...] Nelson DO; Dr. Deb Tam MD ~ Commutator Assembler: Signed [facility]07-13-2025 Discharge summary Author Kev Nelson [facility] Note Date/Time May 08, 2025 5:14 pm [facility] Medical Records Department [address] [place] [address] Emergency Department Summary 05/08/25 MR#: [id number] Acct: [id number] Name: KATH ARRIAGA Rep #:[id number] : 1945 79 From: Kev Martinez PCP: [...] for Parasthesia, Weakness or Loss of Funtion [facility] Medical History (Updated 05/08/25 @ 14:[address] Kev Nelson DO) Atherosclerosis of coronary artery of [place] heart without angina pectoris Obstructive sleep apnea [...] Pain 1-10 11/08/20 11/08/20 History Or Fever bucphavu-qhwr-rszz 8 mg-folic 400 1 tab PO DAILY [...] given a prescription for short course of [place]. Patient was instructed to use ice to the area. Patient was instructed to [facility] in 5 to 7 days. [...] 27 MG tablet 27 mg PO DAILY jiitwnkf-mis-frcx-FA-vit K-lut 1 EACH tablet 1 tab PO [...] Active Staff] - 3-5 Days Print Language: Niuean Disposition Disposition: Home, Self Care What to do if you have Problems For any increased pain, shortness of breath, bleeding, nausea or vomiting, chestpain, or any unexpected problems, contact your Primary Care Provider. Call [facility] ([phone]) or report to the closest Emergency Room. Call 911 if necessary. 05/08/254 <Electronically signed by Kev Nelson DO> Cosigner Signature (if applicable): CC: Dr. Deb Tam MD ~ Signed [facility] Work Phone: 1(958) 283-884106-18-2025 Telephone encounter Note* Telephone Encounter - Deb Tam MD - 04/13/2025 1:01 PM EDT The following approved medication requests have been transmitted electronically. Requested Prescriptions Pending Prescriptions Disp Refills meloxicam (MOBIC) 15 mg tablet 90 tablet 3 Sig: Take 1 tablet by mouth once daily as needed. Deb Tam MD [facility]06-18-2025 Miscellaneous Notes* Telephone Encounter - Deb Tam [...] 12, 2025 1:21 PM documented in this encounterC[facility]06[facility] Telephone encounter Note * Telephone Encounter - [...] Dai Hercules April 12, 2025 1:21 PM [facility]06-03-2025 Telephone encounter Note* Telephone Encounter - Syeda Solomon RN - 03/29/2025 2:23 PM EDT Patient returns call and provider message below reviewed with verbalized understanding. Syeda Solomon RN [facility]06-03-2025 Miscellaneous Notes* Telephone Encounter - Syeda Solomon [...] let me know. Thanks! documented in this encounterC[facility] Clinic [facility]06-[facility] Telephone encounter Note * Telephone Encounter - Clare Carlos LPN - 03/29/2025 9:54 AM EDT LEFT MESSAGE FOR PATIENT TO CALL OFFICE. [facility]06-03-2025 Telephone encounter Note* Telephone Encounter - Olga Gaitan APRN.CNP - 03/29/2025 7:33 AM EDT Great, let her know to increase the ferrous gluconate to twice daily and this will help her iron levels. [facility]06-02-2025 Telephone encounter Note* Telephone Encounter - Joan Dawn LPN - 03/28/2025 4:49 PM EDT Pt calls back to report multivitamin has 18 mg and ferrous gluconate has 28 mg daily. Joan Dawn LPN [facility]06-02-2025 Telephone encounter Note* Telephone Encounter - Clare Carlos LPN - 03/28/2025 4:39 PM EDT Trouble understanding patient due to static. She is taking ferrous gluconate 38 mg daily and a multivitamin that has 18 mg of iron daily. Call was dropped during mid conversation. [facility]06-02-2025 Telephone encounter Note* Telephone Encounter - Olga Gaitan APRN.CNP - 03/28/2025 10:37 AM EDT Labs are stable but iron is still at the low end. Please see which iron supplement she is taking and let me know. Thanks! [facility]05-19-2025 NoteHNO ID: [id number] Author: OLGA GAITAN APRN.AVA Service: ? Author [...] injury sustained years ago while working at [employer], which has contributed to her chronic pain. [...] arthritis flare Doxycycline Other (more content not included)...[facility] 03-14-2025 History of Present illness Narrative* Olga Gaitan APRN.DIRECTOR OF MATERIALS - 03/14/2025 2:40 PM EDT SUBJECTIVE Kath [...] injury sustained years ago while working at [employer], which has contributed to her chronic pain. [...] (Patient not taking: Reported on 03/14/2025) [facility] Walker with wheels and a seat Dx: [...] taking: Reported on 03/14/2025) Miscellaneous [employer] [facility] Boost Max 1 can twice daily Calcium [...] ACTIVE PROBLEM LIST Coronary Artery Disease Involving [place] Coronary Artery of [place] Heart Without Angina Pectoris - 05/04/2020 Comment: [...] vaccination. Administer COVID-19 vaccine today. Recording using [employer] software for draft documentation of the visit was discussed with the patient/authorized business banking representative; all questions welcomed and answered. Patient/authorized business banking representative agreed to proceed Portions of this [...] medication.. Olga Gaitan APRN-AVA documented in this encounterC[facility] Clinic [facility]04-[facility] Telephone encounter Note * Telephone Encounter - [...] Pearson RN February 21, 2025 1:33 PM [facility]04-28-2025 Miscellaneous Notes* Telephone Encounter - Kait Pearson [...] 21, 2025 1:33 PM documented in this encounterC[facility] Clinic [facility] Telephone encounter Note * Telephone Encounter - Deb Tam MD - 12/20/2024 3:45 PM EST The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 01/18/25 Pig Casting Machine Operator Relationship Specialty Start Date End Date Deb Tam MD [address] [place] [address] PCP - General 01/15/05 Coy Chan MD [address] [facility] 2 [place] [address] Specialty Bit Tripoler Orthopedics 09/17/16 Olga Gaitan BUSINESS AGENT.DIRECTOR OF MATERIALS [address] [place] [address] Big Machine Consultant Internal Medicine 01/18/25 Jaja Kirkpatrick, BUSINESS AGENT.GENERAL UTILITY WORKER [address] [place] [address] Big Machine Consultant Internal Medicine 03/16/25 Pig Casting Machine Operator Relationship Specialty Start Date End Date Deb Tam MD [address] [facility], [place] [id number] PCP - General 01/15/05 Coy Chan MD [address] [place] [address] Specialty Bit Tripoler Orthopedics 09/17/16 Olga Gaitan APRN.DIRECTOR OF MATERIALS [address] [place] [address] Big Machine Consultant Internal Medicine 01/18/25 Jaja Kirkpatrick APRN.GENERAL UTILITY WORKER [address] [place] [address] Big Machine Consultant Internal Medicine 03/16/25 Team Status: Active Member Role/Relationship Status Dates Dr. Deb Tam MD Primary Care Provider Active Team Status: Inactive Member Role/Relationship Status Dates Dr. Deb Tam MD Primary Care Provider Active Start: May 08, 2025 End: May 08, 2025 Dr. Kev Nelson DO Emergency Provider Active Start: May 08, 2025 End: May 08, 2025 Pig Casting Machine Operator Relationship Specialty Start Date End Date Deb Tam MD [address] [place] [address] PCP - General 01/15/05 Coy Chan MD [address] [place] [address] Specialty Bit Tripoler Orthopedics 09/17/16 Olga Gaitan APRN.DIRECTOR OF MATERIALS [address] [facility], [place] [address] Big Machine Consultant Internal Medicine 01/18/25 Jaja Kirkpatrick, VLAD.GENERAL UTILITY WORKER [address] [facility] [place] [address] Big Machine Consultant Internal Medicine 03/16/25 Team Status: Active Member [...] section and content) DATE CREATED AUTHOR 03/16/2025 [facility] DATE CREATED AUTHOR AUTHOR'S ORGANIZ ATION 05/11/2025 [facility] Goals (unrecognized section and [...] BE BASED ON THE PRIMARY CLINICAL RECORDS. [employer] provides no warranty or guarantee of the accuracy or completeness of information in this document.
[2025-05-11] MEDS: 0.9% Saline Lock 10 ML Syringe IV (23:36)
[2025-05-11] MEDS: 0.9% Normal Saline (1000mL) 1,000 ML 70 ML IV (23:36)
[2025-05-11] MEDS: Pantoprazole Sodium 40 MG in 0.9% Normal Saline (100mL MB+) 100 ML 330 MG IV (23:43)
[2025-05-12 01:26] LABS: FOLATES,SERUM (FOLIC ACID) 32.40 ng/mL (4.60-34.80)
[2025-05-12 01:29] LABS: Osmolality, Serum 293 mOsm/KG (280-301)
[2025-05-12] MEDS: HYDROcodone Bitartrate/Apap 5/325 Tablet PO ×2 (02:41→22:28)
[2025-05-12 04:48] VITALS: BP 104/59; RESP 19; TEMP 36.8; O2SAT 95
[2025-05-12 05:25] VITALS: BMI 34.7
[2025-05-12 06:00] LABS: Hematocrit 23.5 % (37-47); Hemoglobin 8.1 g/dL (12.0-15.0); Immature Granulocytes Count 0.040 X10^3/uL (0.0-0.0); Mean Corp Hgb Conc 34.5 g/dL (32-36); Mean Corpuscular Volume 89.7 fL (81-99); Mean Platelet Vol. 9.4 fl (6.2-12.0); NRBC Flagged by Analyzer 0 % (0-5); Platelet Count 210 K/mm3 (150-450); RBC Distribution Width CV 14.0 % (11.6-14.6); RBC Distribution Width SD 45.3 fl (35.1-43.9); Red Blood Count 2.62 M/mm3 (4.2-5.4); White Blood Count 9.1 K/mm3 (4.4-11.0)
[2025-05-12 06:48] LABS: AST(SGOT) 65 U/L (<=31); Alanine Aminotransfer ALT/SGPT 30 U/L (<=34); Albumin, Serum 3.3 g/dL (3.4-4.8); Alkaline Phosphatase 71 U/L (35-104); Anion Gap 11 (5-15); BUN 45 mg/dL (4-19); BUN/Creat Ratio 50.1 RATIO (10-20); Calcium,Total 8.4 mg/dL (7.6-11.0); Carbon Dioxide 19.3 mmol/L (21.0-32.0); Chloride 101 mmol/L (98-108); Cholesterol 118 mg/dL (<=200); Estimated Creatinine Clearance 54.58 ml/min (50-250); Globulin 2.4 g/dL (2.2-4.2); Glucose 101 mg/dL (70-99); Low Density Lipoprotein Calc. 44 mg/dL; Potassium 3.9 mmol/L (3.3-5.1); Triglycerides 78 mg/dL; Very Low Density Lipoprotein 16 mg/dL (5-40); cholesterol:hdl ratio screen 2.00
--- NOTE | 2025-05-12 07:31 | PN.HOSP_ITS ---
Reason for Visit Chief Complaint: Generalized Weakness with Inability to Care for Herself at Home. Subjective Subjective Patient is an 79-year-old lady with recent fall with right humeral fracture brought to the emergency department with inability to care for self Objective Data Objective Data Vital Signs: Vital Signs Temp Pulse Resp BP Pulse Ox O2 Del Method 98.2 F 95 19 H 104/59 L 95 Room Air 05/12/25 04:48 05/11/25 22:10 05/12/25 04:48 05/12/25 04:48 05/12/25 04:48 05/12/25 04:48 Oxygen Delivery Method Room Air Weight: 92.3 kg Body Mass Index (BMI) 34.7 Intake & Output: Intake and Output for Last 24 Hours 05/10/25 05/11/25 05/12/25 23:59 23:59 23:59 Intake Total 500 / 500 250 / 250 Output Total 200 / 200 300 / 300 Balance 300 / 300 -50 / -50 Lab / Micro Data 05/12/25 05:18 05/12/25 05:18 Labs: Laboratory Results - last 24 hr 05/11/25 17:31: WBC 11.5 H, RBC 3.22 L, Hgb 9.9 L, Hct 30.3 L, MCV 94.1, MCH 30.7, MCHC 32.7, RDW Std Deviation 48.0 H, RDW Coeff of Papo 14.0, Plt Count 233, MPV 9.4, Immature Gran % (Auto) 0.300, Neut % (Auto) 83.7 H, Lymph % (Auto) 7.0 L, Louisa % (Auto) 8.4, Eos % (Auto) 0.3, Baso % (Auto) 0.3, Absolute Neuts (auto) 9.6 H, Absolute Lymphs (auto) 0.81 L, Nucleated RBC % 0, Sodium 129 L, Potassium 3.9, Chloride 96 L, Carbon Dioxide 15.6 L, Anion Gap 17 H, BUN 59 H, Creatinine 1.22 H, Estim Creat Clear Calc 40.78 L, Est GFR (MDRD) Non-Af 45 L, B UN/Creatinine Ratio 48.1 H, Glucose 124 H, Hemoglobin A1c 4.7, Calcium 9.3, M agnesium 2.3 H, Iron 34 L, TIBC 289, Iron Saturation 11.8 L, Unsaturated IBC 255, Ferritin 135, Total Bilirubin 0.52, AST 77 H, ALT 32, Alkaline Phosphatase 86, Troponin T High Sens 26 H, Total Protein 6.9, Albumin 3.9, Globulin 3.1, Albumin/Globulin Ratio 1.3, Lipase 29, TSH 2.340, Blood Type O POSITIVE, Antibody Screen NEGATIVE 05/11/25 18:12: Urine Color Straw, Urine Clarity Cloudy, Urine pH 5.0, Ur Specific [place] 1.020, Urine Protein 30 H, Urine Glucose (UA) Normal, Urine Ketones Negative, Urine Occult Blood Negative, Urine Nitrite Negative, Urine Bilirubin Negative, Urine Urobilinogen Normal, Ur Leukocyte Esterase Negative, Urine RBC 0 SEEN, Urine WBC 0-5 SEEN, Ur Squamous Epith Cells 0 SEEN, Amorphous Sediment 1+ URATE, Urine Bacteria 2+, Urine Mucus 0 SEEN 05/11/25 19:44: Lactic Acid 3.2 H* 05/11/25 22:42: Urine Osmolality 715 05/11/25 23:59: Serum Osmolality 293, Lactic Acid 1.3, Serum Folate 32.40 05/12/25 05:18: WBC 9.1, RBC 2.62 L, Hgb 8.1 L, Hct 23.5 L, MCV 89.7, MCH 30.9, MCHC 34.5 D, RDW Std Deviation 45.3 H, RDW Coeff of Papo 14.0, Plt Count 210, MPV 9.4, Immature Gran % (Auto) 0.400, Neut % (Auto) 72.7 H, Lymph % (Auto) 15.4 L, Louisa % (Auto) 10.1 H, Eos % (Auto) 1.2, Baso % (Auto) 0.2, Absolute Neuts (auto) 6.6, Absolute Lymphs (auto) 1.40, Nucleated RBC % 0, Sodium 132 L, Potassium 3.9, Chloride 101, Carbon Dioxide 19.3 L, Anion Gap 11, BUN 45 H, Creatinine 0.89, Estim Creat Clear Calc 54.58, Est GFR (MDRD) Non-Af 65, B UN/Creatinine Ratio 50.1 H, Glucose 101 H, Calcium 8.4, Phosphorus 2.9, Total Bilirubin 0.60, AST 65 H, ALT 30, Alkaline Phosphatase 71, Total Protein 5.7 L, Albumin 3.3 L, Globulin 2.4, Albumin/Globulin Ratio 1.4, Triglycerides 78, Cholesterol 118, LDL Cholesterol, Calc 44, VLDL Cholesterol 16, HDL Cholesterol 59, Cholesterol/HDL Ratio 2.00 ABG Data ABG results: ABG 05/11/25 19:57 Specimen Type JUDY Sample Site Not entered VBG pH 7.37 VBG pO2 138 H VBG HCO3 19 L VBG Total CO2 21 L VBG O2 Sat (Calc) 99 H VBG Base Excess -6 L POC Mix VBG pCO2 Pt Tmp 33.5 L O2 Delivery Device Not entered Radiography Diagnostic Testing: Radiology Impression Brain CT 05/11/25 17:47 IMPRESSION: 1. No evidence of acute intracranial pathology. 2. Moderate-advanced volume loss and chronic small-vessel ischemic changes. Reading Location: [facility] Abdomen/Pelvis CT 05/11/25 21:25 IMPRESSION: Possible ventral abdominal wall cellulitis. Advise correlation. Reading Location: [place] [address] Physical Exam Narrative GENERAL: cooperative HEENT: Atraumatic; normocephalic EYES; Anicteric, Normal Conjunctiva NECK; supple, normal thyroid, RESPIRATORY: Diminished to auscultation CARDIOVASCULAR: Regular S1 S2, GI: soft, normoactive bowel sounds, : No Renal angle tenderness; EXTREMITIES: No edema, no clubbing, MUSCULOSKELETAL: no muscle wasting NEURO: Awake; no lateralizing signs. SKIN: No Rash PSYCH; Flat affect Assessment & Plan Assessment/Plan (1) Closed fracture of right proximal humerus: (2) Fracture of proximal humerus: (3) Hyponatremia: (4) Generalized weakness: PLAN: Plan Patient is an 79-year-old lady with recent fall with right humeral fracture brought to the emergency department with inability to care for self 1. Physical deconditioning/debility in the context of a recent fall with right humeral fracture ? Requested for PT OT eval and social media designer to assist with discharge planning 2. Fall with recent right shoulder fracture ? Imaging studies obtained on 05/08/2025 demonstrate slightly comminuted and mildly impacted fracture through the right humeral neck, which involves the greater tuberosity. Patient manage with immobilization consult placed orthopedic surgery 3. Anemia ? Secondary to chronic disorder monitoring H&H and transfuse if patient becomes symptomatic or hemoglobin falls below 7 also ordered iron studies as well as stool guaiac 4. Hyponatremia ? Secondary to suspected hypovolemic hyponatremia patient started on IV fluids with monitoring of daily BMPs also ordered serum and urine osmolality as well as urine sodium 5. Hypertension ? Blood pressure controlled, home medications continued with dose adjustment as needed 6.. Coronary artery disease ?Status post PCI in June 2019 patient remains on guideline directed medical therapy 7. Dyslipidemia -Patient is on statin therapy, continued at home dose 8. Hypothyroidism - Patient is on levothyroxine home dose continued 9. GERD ?On H2 blockers 10. Depression with anxiety ?Patient is on duloxetine did continue 11. Obstructive sleep apnea ?Patient is on CPAP at night 12. DVT prophylaxis ?SCDs only for now given the significant drop in hemoglobin from 9.9 to 8.1 Time spent in the patient's overall evaluation,decision-making process, review of diagnostic data, adjustment of management, discussion with other providers, nursing nursing and ancillary staff involved in patient's care documentation, 50 Minutes Charges/Coding Visit Charges Inpatient E&M: 84472 Subs Hosp L3
--- NOTE | 2025-05-12 08:28 | PCM.PN.ORT ---
Subjective Subjective R proximal humerus fracture. Objective Data Objective Data Vital Signs: Vital Signs Temp Pulse Resp BP Pulse Ox O2 Del Method 98.2 F 95 19 H 104/59 L 95 Room Air 05/12/25 04:48 05/11/25 22:10 05/12/25 04:48 05/12/25 04:48 05/12/25 04:48 05/12/25 07:28 Oxygen Delivery Method Room Air Weight: 203 lb 7.787 oz Body Mass Index (BMI) 34.7 Intake & Output: Intake and Output for Last 24 Hours 05/10/25 05/11/25 05/12/25 23:59 23:59 23:59 Intake Total 500 / 500 250 / 250 Output Total 200 / 200 300 / 300 Balance 300 / 300 -50 / -50 Lab / Micro Data 05/12/25 05:18 05/12/25 05:18 Labs: Laboratory Results - last 24 hr 05/11/25 17:31: WBC 11.5 H, RBC 3.22 L, Hgb 9.9 L, Hct 30.3 L, MCV 94.1, MCH 30.7, MCHC 32.7, RDW Std Deviation 48.0 H, RDW Coeff of Papo 14.0, Plt Count 233, MPV 9.4, Immature Gran % (Auto) 0.300, Neut % (Auto) 83.7 H, Lymph % (Auto) 7.0 L, Cherry % (Auto) 8.4, Eos % (Auto) 0.3, Baso % (Auto) 0.3, Absolute Neuts (auto) 9.6 H, Absolute Lymphs (auto) 0.81 L, Nucleated RBC % 0, Sodium 129 L, Potassium 3.9, Chloride 96 L, Carbon Dioxide 15.6 L, Anion Gap 17 H, BUN 59 H, Creatinine 1.22 H, Estim Creat Clear Calc 40.78 L, Est GFR (MDRD) Non-Af 45 L, BUN/Creatinine Ratio 48.1 H, Glucose 124 H, Hemoglobin A1c 4.7, Calcium 9.3, Magnesium 2.3 H, Iron 34 L, TIBC 289, Iron Saturation 11.8 L, Unsaturated IBC 255, Ferritin 135, Total Bilirubin 0.52, AST 77 H, ALT 32, Alkaline Phosphatase 86, Troponin T High Sens 26 H, Total Protein 6.9, Albumin 3.9, Globulin 3.1, Albumin/Globulin Ratio 1.3, Lipase 29, TSH 2.340, Blood Type O POSITIVE, Antibody Screen NEGATIVE 05/11/25 18:12: Urine Color Straw, Urine Clarity Cloudy, Urine pH 5.0, Ur Specific Colbert 1.020, Urine Protein 30 H, Urine Glucose (UA) Normal, Urine Ketones Negative, Urine Occult Blood Negative, Urine Nitrite Negative, Urine Bilirubin Negative, Urine Urobilinogen Normal, Ur Leukocyte Esterase Negative, Urine RBC 0 SEEN, Urine WBC 0-5 SEEN, Ur Squamous Epith Cells 0 SEEN, Amorphous Sediment 1+ URATE, Urine Bacteria 2+, Urine Mucus 0 SEEN 05/11/25 19:44: Lactic Acid 3.2 H* 05/11/25 22:42: Urine Osmolality 715 05/11/25 23:59: Serum Osmolality 293, Lactic Acid 1.3, Serum Folate 32.40 05/12/25 05:18: WBC 9.1, RBC 2.62 L, Hgb 8.1 L, Hct 23.5 L, MCV 89.7, MCH 30.9, MCHC 34.5 D, RDW Std Deviation 45.3 H, RDW Coeff of Papo 14.0, Plt Count 210, MPV 9.4, Immature Gran % (Auto) 0.400, Neut % (Auto) 72.7 H, Lymph % (Auto) 15.4 L, Cherry % (Auto) 10.1 H, Eos % (Auto) 1.2, Baso % (Auto) 0.2, Absolute Neuts (auto) 6.6, Absolute Lymphs (auto) 1.40, Nucleated RBC % 0, Sodium 132 L, Potassium 3.9, Chloride 101, Carbon Dioxide 19.3 L, Anion Gap 11, BUN 45 H, Creatinine 0.89, Estim Creat Clear Calc 54.58, Est GFR (MDRD) Non-Af 65, BUN/Creatinine Ratio 50.1 H, Glucose 101 H, Calcium 8.4, Phosphorus 2.9, Total Bilirubin 0.60, AST 65 H, ALT 30, Alkaline Phosphatase 71, Total Protein 5.7 L, Albumin 3.3 L, Globulin 2.4, Albumin/Globulin Ratio 1.4, Triglycerides 78, Cholesterol 118, LDL Cholesterol, Calc 44, VLDL Cholesterol 16, HDL Cholesterol 59, Cholesterol/HDL Ratio 2.00 ABG Data ABG results: ABG 05/11/25 19:57 Specimen Type JUDY Sample Site Not entered VBG pH 7.37 VBG pO2 138 H VBG HCO3 19 L VBG Total CO2 21 L VBG O2 Sat (Calc) 99 H VBG Base Excess -6 L POC Mix VBG pCO2 Pt Tmp 33.5 L O2 Delivery Device Not entered Radiography Diagnostic Testing: Radiology Impression Brain CT 05/11/25 17:47 IMPRESSION: 1. No evidence of acute intracranial pathology. 2. Moderate-advanced volume loss and chronic small-vessel ischemic changes. Reading Location: [facility] Abdomen/Pelvis CT 05/11/25 21:25 IMPRESSION: Possible ventral abdominal wall cellulitis. Advise correlation. Reading Location: [place] [address] R proximal humerus fracture at the neck. minimally displaced. Assessment & Plan Assessment/Plan (1) Closed fracture of right proximal humerus: PLAN: 79 yr F with multiple PMHX with right proximal humerus fracture minimally displaced. I recommend nonoperative treatment with a sling and follow-up as an outpatient once the medical issues have stabilized.
[2025-05-12 08:41] VITALS: BP 102/61; PULSE 76; RESP 16; TEMP 36.5; O2SAT 100
[2025-05-12] MEDS: Pantoprazole Sodium 40 MG in 0.9% Normal Saline (100mL MB+) 100 ML 330 MG IV ×2 (09:49→22:30)
--- NOTE | 2025-05-12 10:01 | CASEMGMT ---
Discharge Planning A list of?SNF providers including quality and resource use data and consistent with the patient's preferred geographic region, medical needs, and insurance network was created in CarePort Guide.? This list was provided to the SW. Sylvie Elise Discharge Planning Asst.
[2025-05-12 10:06] VITALS: PULSE 87
[2025-05-12 11:41] VITALS: BP 111/55; PULSE 77; RESP 16; TEMP 36.3; O2SAT 100
--- NOTE | 2025-05-12 15:10 | CASEMGMT ---
Social Work- SW [facility] Savi contact is [phone]. Savi reports that pt has a medical alert, receives supplies from [email or web address], and receives 6 hours/week of personal care from [facility] [employer]. SW left a voice mail in return to coordinate on care plan. DIMAS Wise
--- NOTE | 2025-05-12 15:11 | CHAPLAIN ---
Type of Pastoral Visit _x__ Initial Visit ___ Follow-up Visit ___ On-call Visit ___ General Patient Visit ___ Spiritual Assessment ___ Family Conference ___ Bereavement ___ Rapid Response ___ Code Blue ___ Other (describe below) Pastoral Care Referral From _x__ Patient ___ Family ___ Nurse ___ Physician ___ Director Of Agriculture ___ Government Instructor ___ Other (describe below) Sacrament/Intervention _x__ Active listening ___ Anointing ___ Buddhism ___ Bereavement ___ Communion ___ Ayala exploration ___ ___ Life review _x__ Prayer ___ Reconciliation ___ Sacrament of Sick ___ Supportive presence ___ Wedding ___ Other (describe below) Pastoral Comments patient gives information on her current situation and break of arm; pt has rejected the ayala community of her gnosticism but still believe in God and thus she welcomed a prayer; pt denies needs or concerns but expressed thanks for the offer of support
--- NOTE | 2025-05-12 15:48 | CASEMGMT ---
SW Assessment: Face to Face with pt for initial transition planning/care coordination assessment. SW introduced self and role at [facility], pt voices understanding and consents to assessment. Pt is A&O x4 and answers all questions appropriately at this time. Care providers, pharmacy, and demographics verified/updated. Admitting Dx: leukocytosis, lactic acidosis, hypontremia, elevated BUN PCP:Dr Tam Specialists: None Preferred Pharmacy: [facility] Insurance: [facility] Prescription Benefit: yes LNOK: Naty, cousin Living Arrangements: Pt lives in an apartment with 14 stairs up. Pt has not done stairs since February 2025. Pt has lived in apartment 18 years. Pt reports that she can't imagine living elsewhere, but is understanding that she will have to at some point. Pt reports that she has 6 hrs of aides a week; 2 hrs, 3 days a week. Pt reports her aide does all her shopping and errands, assists with cleaning and personal care, but mainly visits. Pt reports that she has [facility] services- Maribel Dick is CM. Pt also has a RNGUALBERTO Hou through [facility]. Pt reports that she has a bunch of cousins for assistance as needed. Pt reports that she sits on rollator and scoots or pushes herself around. Transportation: Pt cousin assists with transportation and pt denies concerns with transportation. DME: [employer], rollator, shower bench, walker HHC/SNF: [facility] Pt Goal: SNF then home with resumption of services DIMAS Wise
[2025-05-12 16:00] VITALS: BP 108/58; PULSE 89; RESP 16; TEMP 36.8; O2SAT 96
--- NOTE | 2025-05-12 16:06 | CASEMGMT ---
Social Work- A list of SNF providers including quality and resource use data and consistent with the patient?s preferred geographic region, medical needs, and insurance network were provided from the CarePort Guide.PT selected TCU. SW completed referral. TCU does not have any available beds. SW followed up with pt for additional choices. Pt selected [facility] as alternate selection. [facility] notified of referral request. SW remains available to follow. DIMAS Wise
[2025-05-12] MEDS: 0.9% Saline Lock 10 ML Syringe IV (22:29)
[2025-05-12 22:38] VITALS: BP 115/54; PULSE 82; RESP 18; TEMP 36.6; O2SAT 96
[2025-05-12] MEDS: MELATONIN 3 MG TABLET PO (23:45)
[2025-05-13 05:35] VITALS: BP 115/63; PULSE 75; RESP 18; TEMP 36.4; O2SAT 97
[2025-05-13 06:00] VITALS: BMI 35.7
[2025-05-13 06:47] LABS: Hematocrit 22.7 % (37-47); Hemoglobin 7.6 g/dL (12.0-15.0); Immature Granulocytes Count 0.020 X10^3/uL (0.0-0.0); Mean Corp Hgb Conc 33.5 g/dL (32-36); Mean Corpuscular Volume 91.9 fL (81-99); Mean Platelet Vol. 9.2 fl (6.2-12.0); NRBC Flagged by Analyzer 0 % (0-5); Platelet Count 199 K/mm3 (150-450); RBC Distribution Width CV 14.2 % (11.6-14.6); RBC Distribution Width SD 47.5 fl (35.1-43.9); Red Blood Count 2.47 M/mm3 (4.2-5.4); White Blood Count 7.3 K/mm3 (4.4-11.0)
[2025-05-13 07:02] LABS: Anion Gap 10 (5-15); BUN 26 mg/dL (4-19); BUN/Creat Ratio 39.9 RATIO (10-20); Calcium,Total 8.2 mg/dL (7.6-11.0); Carbon Dioxide 18.7 mmol/L (21.0-32.0); Chloride 103 mmol/L (98-108); Estimated Creatinine Clearance 61.66 ml/min (50-250); Glucose 98 mg/dL (70-99); Magnesium 2.0 mg/dL (1.5-2.2); Potassium 4.0 mmol/L (3.3-5.1)
--- NOTE | 2025-05-13 07:59 | PN.HOSP_ITS ---
Reason for Visit Chief Complaint: Generalized Weakness with Inability to Care for Herself at Home. Subjective Subjective Patient seen still complains of intractable pain in the right upper extremity. Hemoglobin down to 7.6 Objective Data Objective Data Vital Signs: Vital Signs Temp Pulse Resp BP Pulse Ox O2 Del Method O2 Flow Rate 97.6 F L 75 18 115/63 97 Room Air 2 05/13/25 05:35 05/13/25 05:35 05/13/25 05:35 05/13/25 05:35 05/13/25 05:35 05/13/25 07:11 05/12/25 16:00 Oxygen Flow Rate (L/min) 2 Oxygen Delivery Method Room Air Weight: 95 kg Body Mass Index (BMI) 35.7 Intake & Output: Intake and Output for Last 24 Hours 05/11/25 05/12/25 05/13/25 23:59 23:59 23:59 Intake Total 500 / 500 2050 / 2050 100 / 100 Output Total 200 / 200 1000 / 1000 300 / 300 Balance 300 / 300 1050 / 1050 -200 / -200 Lab / Micro Data 05/13/25 05:28 05/13/25 05:28 Labs: Laboratory Results - last 24 hr 05/13/25 05:28: WBC 7.3, RBC 2.47 L, Hgb 7.6 L, Hct 22.7 L, MCV 91.9, MCH 30.8, MCHC 33.5, RDW Std Deviation 47.5 H, RDW Coeff of Papo 14.2, Plt Count 199, MPV 9.2, Immature Gran % (Auto) 0.300, Neut % (Auto) 60.6, Lymph % (Auto) 22.9, Snyder % (Auto) 10.2 H, Eos % (Auto) 5.6 H, Baso % (Auto) 0.4, Absolute Neuts (auto) 4.4, Absolute Lymphs (auto) 1.66, Nucleated RBC % 0, Sodium 132 L, Potassium 4.0, Chloride 103, Carbon Dioxide 18.7 L, Anion Gap 10, BUN 26 H, Creatinine 0.66 L, Estim Creat Clear Calc 61.66, Est GFR (MDRD) Non-Af 88, BUN/Creatinine Ratio 39.9 H, Glucose 98, Calcium 8.2, Phosphorus 2.6 L, Magnesium 2.0 Physical Exam Narrative GENERAL: cooperative HEENT: Atraumatic; normocephalic EYES; Anicteric, Normal Conjunctiva NECK; supple, normal thyroid, RESPIRATORY: Diminished to auscultation CARDIOVASCULAR: Regular S1 S2, GI: soft, normoactive bowel sounds, : No Renal angle tenderness; EXTREMITIES: No edema, no clubbing, MUSCULOSKELETAL: no muscle wasting NEURO: Awake; no lateralizing signs. SKIN: No Rash PSYCH; Flat affect Assessment & Plan Assessment/Plan (1) Closed fracture of right proximal humerus: (2) Fracture of proximal humerus: (3) Hyponatremia: (4) Generalized weakness: PLAN: Plan Patient is an 79-year-old lady with recent fall with right humeral fracture brought to the emergency department with inability to care for self 1. Physical deconditioning/debility in the context of a recent fall with right humeral fracture ? Requested for PT OT eval and social media content specialist to assist with discharge planning 05/13/2025; insurance precertification pending prior to patient being transferred 2. Fall with recent right shoulder fracture ? Imaging studies obtained on 05/08/2025 demonstrate slightly comminuted and mildly impacted fracture through the right humeral neck, which involves the greater tuberosity. Patient manage with immobilization consult placed orthopedic surgery ? 05/13/2025 patient was seen in consultation by Dr. Tarun Cheng with orthopedic surgery his notes and recommendations reviewed. 3. Anemia ? Secondary to chronic disorder monitoring H&H and transfuse if patient becomes symptomatic or hemoglobin falls below 7 also ordered iron studies as well as stool guaiac ? 05/13/2025 patient iron studies came back consistent with iron deficiency anemia. Did discuss results with patient who recommended taking Excedrin at home patient was advised to quit. Also did discuss with patient about undergoing subsequent evaluation as outpatient with both upper and lower EGD. Patient started on parenteral iron 4. Hyponatremia ? Secondary to suspected hypovolemic hyponatremia patient started on IV fluids with monitoring of daily BMPs also ordered serum and urine osmolality as well as urine sodium 5. Hypertension ? Blood pressure controlled, home medications continued with dose adjustment as needed 6.. Coronary artery disease ?Status post PCI in June 2019 patient remains on guideline directed medical therapy 7. Dyslipidemia -Patient is on statin therapy, continued at home dose 8. Hypothyroidism - Patient is on levothyroxine home dose continued 9. GERD ?On H2 blockers 10. Depression with anxiety ?Patient is on duloxetine did continue 11. Obstructive sleep apnea ?Patient is on CPAP at night 12. DVT prophylaxis ?SCDs only for now given the significant drop in hemoglobin from 9.9 to 8.1 Time spent in the patient's overall evaluation,decision-making process, review of diagnostic data, adjustment of management, discussion with other providers, nursing nursing and ancillary staff involved in patient's care documentation, 38 Minutes Charges/Coding Visit Charges Inpatient E&M: 87782 Subs Hosp L2
--- NOTE | 2025-05-13 08:51 | CASEMGMT ---
Addendum entered by Sylvie Elise 05/13/25 11:50: [facility] declined d/t being out of network with pts specific plan. Sylvie Elise DC Planning Asst. Original Note: Discharge Planning Referral sent to [facility] Sylvie Elise DC Planning Asst.
[2025-05-13 10:11] VITALS: BP 141/58; PULSE 80; RESP 16; TEMP 36.4; O2SAT 100
--- NOTE | 2025-05-13 11:37 | CASEMGMT ---
Addendum entered by Raya Osorio 05/13/25 12:51: [facility] after initially reporting that they did not have a bed. Pt updated. Precert started. Plan: [facility]; pend precert DIMAS Wise Original Note: Social Work- SW met with pt to discuss that [facility] was not in-network despite initial indication on list. SW and pt discussed SNF list and pt selected [facility]. DCA notified of referral request. SW remains available to follow. Plan: [facility]; pend acceptance DIMAS Wise
--- NOTE | 2025-05-13 11:54 | CASEMGMT ---
Addendum entered by Sylvie Elise 05/13/25 12:50: Msg rec'd from [facility] that they do have bed availability. SW updated. Pt would like to proceed. [facility] asked to submit for precert. Sylvie Elise DC Planning Asst. Addendum entered by Sylvie Elise 05/13/25 12:09: [facility] declined d/t no bed availability. Sylvie Elise DC Planning Asst Original Note: Discharge Planning Referral sent to [facility] [place]. Sylvie Elise DC Planning Asst.
[2025-05-13] MEDS: Sodium Ferric Gluconat 250 MG in 0.9% Normal Saline 250 ML 135 MG IV (12:15)
--- NOTE | 2025-05-13 13:54 | CASEMGMT ---
Social Work- Discharge to [facility] under skilled level of care pending precert. ?In case of possible weekend discharge, green sheet on chart for nursing to follow for final discharge arrangements/notifications to SNF, patient/family.?HENS and transport on chart. Plan: [facility]; pending precert DIMAS Wise
[2025-05-13 14:13] VITALS: BP 105/61; PULSE 81; RESP 16; TEMP 36.6; O2SAT 100
[2025-05-13 21:19] VITALS: BP 137/66; PULSE 84; RESP 15; TEMP 37.1; O2SAT 100
[2025-05-14 04:00] VITALS: BP 118/68; PULSE 83; RESP 15; TEMP 36.9; O2SAT 98
--- NOTE | 2025-05-14 07:12 | CASEMGMT ---
Social Work SW received a message from pt's CM Maribel with [facility] stating she is pt's CM. SW left her a message back letting her know [facility]. Maribel's number is [phone]. MARRY Carrasquillo
[2025-05-14 07:17] LABS: Hematocrit 23.6 % (37-47); Hemoglobin 7.7 g/dL (12.0-15.0); Immature Granulocytes Count 0.030 X10^3/uL (0.0-0.0); Mean Corp Hgb Conc 32.6 g/dL (32-36); Mean Corpuscular Volume 94.4 fL (81-99); Mean Platelet Vol. 9.2 fl (6.2-12.0); NRBC Flagged by Analyzer 0 % (0-5); Platelet Count 212 K/mm3 (150-450); RBC Distribution Width CV 14.4 % (11.6-14.6); RBC Distribution Width SD 48.6 fl (35.1-43.9); Red Blood Count 2.50 M/mm3 (4.2-5.4); White Blood Count 7.0 K/mm3 (4.4-11.0)
[2025-05-14 07:51] LABS: Anion Gap 9 (5-15); BUN 19 mg/dL (4-19); BUN/Creat Ratio 32.4 RATIO (10-20); Calcium,Total 8.7 mg/dL (7.6-11.0); Carbon Dioxide 21.4 mmol/L (21.0-32.0); Chloride 102 mmol/L (98-108); Estimated Creatinine Clearance 61.66 ml/min (50-250); Glucose 94 mg/dL (70-99); Potassium 4.7 mmol/L (3.3-5.1)
--- NOTE | 2025-05-14 07:52 | PCM.PN.HOSP ---
Reason for Visit Chief Complaint: Generalized Weakness with Inability to Care for Herself at Home. Subjective Subjective ? Patient seen hemoglobin remains loose stool guaiac came back positive plan is for patient to undergo evaluation as outpatient Objective Data Objective Data Vital Signs: Vital Signs Temp Pulse Resp BP Pulse Ox O2 Del Method O2 Flow Rate 98.4 F 83 15 118/68 98 Room Air 100 05/14/25 04:00 05/14/25 04:00 05/14/25 04:00 05/14/25 04:00 05/14/25 04:00 05/14/25 04:00 05/13/25 14:13 Oxygen Flow Rate (L/min) 100 Oxygen Delivery Method Room Air Weight: 95 kg Body Mass Index (BMI) 35.7 Intake & Output: Intake and Output for Last 24 Hours 05/12/25 05/13/25 05/14/25 23:59 23:59 23:59 Intake Total 2050 / 2050 370 / 370 Output Total 1000 / 1000 300 / 600 800 / 800 Balance 1050 / 1050 70 / -230 -800 / -800 Lab / Micro Data 05/14/25 05:50 05/14/25 05:50 Labs: Laboratory Results - last 24 hr 05/14/25 05:50: WBC 7.0, RBC 2.50 L, Hgb 7.7 L, Hct 23.6 L, MCV 94.4, MCH 30.8, MCHC 32.6, RDW Std Deviation 48.6 H, RDW Coeff of Papo 14.4, Plt Count 212, MPV 9.2, Immature Gran % (Auto) 0.400, Neut % (Auto) 64.4, Lymph % (Auto) 16.4 L, [place] % (Auto) 11.7 H, Eos % (Auto) 6.7 H, Baso % (Auto) 0.4, Absolute Neuts (auto) 4.5, Absolute Lymphs (auto) 1.15, Nucleated RBC % 0, Sodium 133, Potassium 4.7, Chloride 102, Carbon Dioxide 21.4, Anion Gap 9, BUN 19, Creatinine 0.57 L, Estim Creat Clear Calc 61.66, Est GFR (MDRD) Non-Af 91, BUN/Creatinine Ratio 32.4 H, Glucose 94, Calcium 8.7 Micro: Microbiology 05/13/25 12:00 Stool Stool Occult Blood (MARINA) - Final Occult Blood Positive Physical Exam Narrative GENERAL: cooperative HEENT: Atraumatic; normocephalic EYES; Anicteric, Normal Conjunctiva NECK; supple, normal thyroid, RESPIRATORY: Diminished to auscultation CARDIOVASCULAR: Regular S1 S2, GI: soft, normoactive bowel sounds, : No Renal angle tenderness; EXTREMITIES: No edema, no clubbing, MUSCULOSKELETAL: no muscle wasting NEURO: Awake; no lateralizing signs. SKIN: No Rash PSYCH; Flat affect Assessment & Plan Assessment/Plan (1) Closed fracture of right proximal humerus: (2) Fracture of proximal humerus: (3) Hyponatremia: (4) Generalized weakness: PLAN: Plan Patient is an 79-year-old lady with recent fall with right humeral fracture brought to the emergency department with inability to care for self 1. Physical deconditioning/debility in the context of a recent fall with right humeral fracture ? Requested for PT OT eval and director social service to assist with discharge planning 05/13/2025; insurance precertification pending prior to patient being transferred ? 05/14/2025; patient ready for discharge awaiting insurance precertification 2. Fall with recent right shoulder fracture ? Imaging studies obtained on 05/08/2025 demonstrate slightly comminuted and mildly impacted fracture through the right humeral neck, which involves the greater tuberosity. Patient manage with immobilization consult placed orthopedic surgery ? 05/13/2025 patient was seen in consultation by Dr. Tarun Cheng with orthopedic surgery his notes and recommendations reviewed. 3. Anemia ? Secondary to chronic disorder monitoring H&H and transfuse if patient becomes symptomatic or hemoglobin falls below 7 also ordered iron studies as well as stool guaiac ? 05/13/2025 patient iron studies came back consistent with iron deficiency anemia. Did discuss results with patient who recommended taking Excedrin at home patient was advised to quit. Also did discuss with patient about undergoing subsequent evaluation as outpatient with both upper and lower EGD. Patient started on parenteral iron ? 05/14/2025; patient stool guaiac came back positive. I discussed with the patient the day prior about undergoing further evaluation as outpatient when medically stable. Hemoglobin down to 7.7. Additional 200 mg of parenteral iron given 4. Hyponatremia ? Secondary to suspected hypovolemic hyponatremia patient started on IV fluids with monitoring of daily BMPs also ordered serum and urine osmolality as well as urine sodium ? 05/14/2025; sodium level up to 133 5. Hypertension ? Blood pressure controlled, home medications continued with dose adjustment as needed 6.. Coronary artery disease ?Status post PCI in June 2019 patient remains on guideline directed medical therapy 7. Dyslipidemia -Patient is on statin therapy, continued at home dose 8. Hypothyroidism - Patient is on levothyroxine home dose continued 9. GERD ?On H2 blockers 10. Depression with anxiety ?Patient is on duloxetine did continue 11. Obstructive sleep apnea ?Patient is on CPAP at night 12. DVT prophylaxis ?SCDs only for now given the significant drop in hemoglobin from 9.9 to 8.1 Time spent in the patient's overall evaluation,decision-making process, review of diagnostic data, adjustment of management, discussion with other providers, nursing nursing and ancillary staff involved in patient's care documentation, 36 Minutes Charges/Coding Visit Charges Inpatient E&M: 00018 Subs Hosp L2
[2025-05-14 09:00] VITALS: BP 115/52; PULSE 82; RESP 18; TEMP 36.3; O2SAT 97
[2025-05-14] MEDS: Sodium Ferric Gluconat/Sucrose 250 MG in 0.9% Normal Saline (250mL Bag) 250 ML 135 MG IV (09:44)
[2025-05-14 16:00] VITALS: BP 136/70; PULSE 85; RESP 18; TEMP 36.5; O2SAT 95
[2025-05-14 21:50] VITALS: BP 139/76; PULSE 84; RESP 18; TEMP 36.8; O2SAT 98
[2025-05-15 04:40] VITALS: BP 136/64; PULSE 77; RESP 18; TEMP 36.6; O2SAT 98
[2025-05-15 05:56] LABS: Hematocrit 23.0 % (37-47); Hemoglobin 7.6 g/dL (12.0-15.0); Immature Granulocytes Count 0.060 X10^3/uL (0.0-0.0); Mean Corp Hgb Conc 33.0 g/dL (32-36); Mean Corpuscular Volume 92.4 fL (81-99); Mean Platelet Vol. 8.9 fl (6.2-12.0); NRBC Flagged by Analyzer 0 % (0-5); Platelet Count 216 K/mm3 (150-450); RBC Distribution Width CV 14.4 % (11.6-14.6); RBC Distribution Width SD 47.8 fl (35.1-43.9); Red Blood Count 2.49 M/mm3 (4.2-5.4); White Blood Count 6.8 K/mm3 (4.4-11.0)
[2025-05-15 05:58] VITALS: BMI 35.3
[2025-05-15 06:24] LABS: Anion Gap 9 (5-15); BUN 13 mg/dL (4-19); BUN/Creat Ratio 24.4 RATIO (10-20); Calcium,Total 8.4 mg/dL (7.6-11.0); Carbon Dioxide 23.1 mmol/L (21.0-32.0); Chloride 101 mmol/L (98-108); Estimated Creatinine Clearance 61.24 ml/min (50-250); Glucose 85 mg/dL (70-99); Potassium 3.6 mmol/L (3.3-5.1)
--- NOTE | 2025-05-15 08:14 | PCM.PN.HOSP ---
Reason for Visit Chief Complaint: Generalized Weakness with Inability to Care for Herself at Home. Subjective Subjective Patient seen remains profoundly weak, currently participating in therapy. No change in hemoglobin level. Patient is medically ready for discharge however still waiting for insurance precertification Objective Data Objective Data Vital Signs: Vital Signs Temp Pulse Resp BP Pulse Ox O2 Del Method O2 Flow Rate 98 F 77 18 136/64 H 98 Room Air 100 05/15/25 04:40 05/15/25 04:40 05/15/25 04:40 05/15/25 04:40 05/15/25 04:40 05/15/25 04:40 05/13/25 14:13 Oxygen Flow Rate (L/min) 100 Oxygen Delivery Method Room Air Weight: 93.8 kg Body Mass Index (BMI) 35.3 Intake & Output: Intake and Output for Last 24 Hours 05/13/25 05/14/25 05/15/25 23:59 23:59 23:59 Intake Total 370 / 370 920 / 920 800 / 800 Output Total 300 / 600 1600 / 1600 1500 / 1500 Balance 70 / -230 -680 / -680 -700 / -700 Lab / Micro Data 05/15/25 05:36 05/15/25 05:36 Labs: Laboratory Results - last 24 hr 05/15/25 05:36: WBC 6.8, RBC 2.49 L, Hgb 7.6 L, Hct 23.0 L, MCV 92.4, MCH 30.5, MCHC 33.0, RDW Std Deviation 47.8 H, RDW Coeff of Papo 14.4, Plt Count 216, MPV 8.9, Immature Gran % (Auto) 0.900, Neut % (Auto) 63.6, Lymph % (Auto) 19.1, [place] % (Auto) 9.6, Eos % (Auto) 6.4 H, Baso % (Auto) 0.4, Absolute Neuts (auto) 4.3, Absolute Lymphs (auto) 1.29, Nucleated RBC % 0, Sodium 133, Potassium 3.6, Chloride 101, Carbon Dioxide 23.1, Anion Gap 9, BUN 13, Creatinine 0.55 L, Estim Creat Clear Calc 61.24, Est GFR (MDRD) Non-Af 92, BUN/Creatinine Ratio 24.4 H, Glucose 85, Calcium 8.4 Micro: Microbiology 05/11/25 23:59 Blood Culture (Wb) - Anticubital Left Blood Culture - Preliminary No growth in 48 hours. 05/11/25 17:31 Blood Culture (Wb) - Left Forearm Blood Culture - Preliminary No growth in 48 hours. 05/13/25 12:00 Stool Stool Occult Blood (MARINA) - Final Occult Blood Positive Physical Exam Narrative GENERAL: cooperative HEENT: Atraumatic; normocephalic EYES; Anicteric, Normal Conjunctiva NECK; supple, normal thyroid, RESPIRATORY: Diminished to auscultation CARDIOVASCULAR: Regular S1 S2, GI: soft, normoactive bowel sounds, : No Renal angle tenderness; EXTREMITIES: No edema, no clubbing, MUSCULOSKELETAL: no muscle wasting NEURO: Awake; no lateralizing signs. SKIN: No Rash PSYCH; Flat affect Assessment & Plan Assessment/Plan (1) Closed fracture of right proximal humerus: (2) Fracture of proximal humerus: (3) Hyponatremia: (4) Generalized weakness: PLAN: Plan Patient is an 79-year-old lady with recent fall with right humeral fracture brought to the emergency department with inability to care for self 1. Physical deconditioning/debility in the context of a recent fall with right humeral fracture ? Requested for PT OT eval and geriatric social work professor to assist with discharge planning 05/13/2025; insurance precertification pending prior to patient being transferred ? 05/14/2025; patient ready for discharge awaiting insurance precertification ? 05/15/2025; no change in clinical condition. Will continue with PT OT as tolerated pending insurance precertification 2. Fall with recent right shoulder fracture ? Imaging studies obtained on 05/08/2025 demonstrate slightly comminuted and mildly impacted fracture through the right humeral neck, which involves the greater tuberosity. Patient manage with immobilization consult placed orthopedic surgery ? 05/13/2025 patient was seen in consultation by Dr. Tarun Cheng with orthopedic surgery his notes and recommendations reviewed. 3. Anemia ? Secondary to chronic disorder monitoring H&H and transfuse if patient becomes symptomatic or hemoglobin falls below 7 also ordered iron studies as well as stool guaiac ? 05/13/2025 patient iron studies came back consistent with iron deficiency anemia. Did discuss results with patient who recommended taking Excedrin at home patient was advised to quit. Also did discuss with patient about undergoing subsequent evaluation as outpatient with both upper and lower EGD. Patient started on parenteral iron ? 05/14/2025; patient stool guaiac came back positive. I discussed with the patient the day prior about undergoing further evaluation as outpatient when medically stable. Hemoglobin down to 7.7. Additional 200 mg of parenteral iron given ? 05/15/2025; patient hemoglobin down to 7.6 repeat H&H ordered for a.m. 4. Hyponatremia ? Secondary to suspected hypovolemic hyponatremia patient started on IV fluids with monitoring of daily BMPs also ordered serum and urine osmolality as well as urine sodium ? 05/14/2025; sodium level up to 133 5. Hypertension ? Blood pressure controlled, home medications continued with dose adjustment as needed 6.. Coronary artery disease ?Status post PCI in June 2019 patient remains on guideline directed medical therapy 7. Dyslipidemia -Patient is on statin therapy, continued at home dose 8. Hypothyroidism - Patient is on levothyroxine home dose continued 9. GERD ?On H2 blockers 10. Depression with anxiety ?Patient is on duloxetine did continue 11. Obstructive sleep apnea ?Patient is on CPAP at night 12. DVT prophylaxis ?SCDs only for now given the significant drop in hemoglobin from 9.9 to 8.1 Charges/Coding Visit Charges Inpatient E&M: 75713 Subs Hosp L2 Date medically ready for discharge: 05/14/25 Reason for DC delay: Precert pending from insurance
[2025-05-15] MEDS: HYDROcodone Bitartrate/Apap 5/325 Tablet PO ×2 (09:20→15:56)
[2025-05-15 10:35] VITALS: BP 146/60; PULSE 78; RESP 16; TEMP 36.6; O2SAT 99
[2025-05-15 16:29] VITALS: BP 135/62; PULSE 83; RESP 16; TEMP 36.2; O2SAT 97
[2025-05-15 21:59] VITALS: BP 137/73; PULSE 86; RESP 18; TEMP 36.5; O2SAT 96
[2025-05-16 06:00] VITALS: BMI 35.6
[2025-05-16 06:07] VITALS: BP 136/68; PULSE 78; RESP 18; TEMP 36.6; O2SAT 95
[2025-05-16 07:10] LABS: Hematocrit 25.4 % (37-47); Hemoglobin 8.2 g/dL (12.0-15.0); Immature Granulocytes Count 0.070 X10^3/uL (0.0-0.0); Mean Corp Hgb Conc 32.3 g/dL (32-36); Mean Corpuscular Volume 95.5 fL (81-99); Mean Platelet Vol. 9.0 fl (6.2-12.0); NRBC Flagged by Analyzer 0 % (0-5); Platelet Count 249 K/mm3 (150-450); RBC Distribution Width CV 14.7 % (11.6-14.6); RBC Distribution Width SD 49.9 fl (35.1-43.9); Red Blood Count 2.66 M/mm3 (4.2-5.4); White Blood Count 6.2 K/mm3 (4.4-11.0)
[2025-05-16 07:48] LABS: Anion Gap 9 (5-15); BUN 21 mg/dL (4-19); BUN/Creat Ratio 38.9 RATIO (10-20); Calcium,Total 9.0 mg/dL (7.6-11.0); Carbon Dioxide 25.7 mmol/L (21.0-32.0); Chloride 100 mmol/L (98-108); Estimated Creatinine Clearance 61.56 ml/min (50-250); Glucose 91 mg/dL (70-99); Magnesium 1.9 mg/dL (1.5-2.2); Potassium 4.3 mmol/L (3.3-5.1)
[2025-05-16 08:56] VITALS: BP 150/60; PULSE 81; RESP 19; TEMP 36.9; O2SAT 100
[2025-05-16 10:40] VITALS: BP 150/60; PULSE 81; RESP 19; TEMP 36.9; O2SAT 100
--- NOTE | 2025-05-16 12:18 | CASEMGMT ---
Discharge Planning Updates sent to [facility]. [facility] remains pending. Sylvie Elise DC Planning Asst.
[2025-05-16 16:00] VITALS: BP 133/72; PULSE 87; RESP 17; TEMP 36.8; O2SAT 96
--- NOTE | 2025-05-16 16:33 | CASEMGMT ---
Social Work- SW met with pt and cousin Naty to provide updates and education on SNF process. Pt and cousin appreciative of assistance. SW remains available to follow. Plan: [facility]; pend DIMAS Kinney
--- NOTE | 2025-05-16 18:52 | PN.HOSP_ITS ---
Reason for Visit Chief Complaint: Generalized Weakness with Inability to Care for Herself at Home. Subjective Subjective Patient was seen and examined today, she is hard to communicate with due to severe hearing loss. We are currently awaiting approval for the patient to go to a skilled facility for inpatient rehab services. Objective Data Objective Data Vital Signs: Vital Signs Temp Pulse Resp BP Pulse Ox O2 Del Method O2 Flow Rate 98.2 F 87 17 133/72 H 96 Room Air 100 05/16/25 16:00 05/16/25 16:00 05/16/25 16:00 05/16/25 16:00 05/16/25 16:00 05/16/25 16:00 05/13/25 14:13 Oxygen Flow Rate (L/min) 100 Oxygen Delivery Method Room Air Weight: 94.7 kg Body Mass Index (BMI) 35.6 Intake & Output: Intake and Output for Last 24 Hours 05/14/25 05/15/25 05/16/25 23:59 23:59 23:59 Intake Total 920 / 920 1800 / 1800 1380 / 1380 Output Total 1600 / 1600 2900 / 2900 1900 / 1900 Balance -680 / -680 -1100 / -1100 -520 / -520 Lab / Micro Data 05/16/25 06:33 05/16/25 06:33 Labs: Laboratory Results - last 24 hr 05/16/25 06:33: WBC 6.2, RBC 2.66 L, Hgb 8.2 L, Hct 25.4 L, MCV 95.5, MCH 30.8, MCHC 32.3, RDW Std Deviation 49.9 H, RDW Coeff of Papo 14.7 H, Plt Count 249, MPV 9.0, Immature Gran % (Auto) 1.100 H, Neut % (Auto) 61.1, Lymph % (Auto) 17.4 L, [place] % (Auto) 11.8 H, Eos % (Auto) 8.1 H, Baso % (Auto) 0.5, Absolute Neuts (auto) 3.8, Absolute Lymphs (auto) 1.08, Nucleated RBC % 0, Sodium 135, Potassium 4.3, Chloride 100, Carbon Dioxide 25.7, Anion Gap 9, BUN 21 H, C reatinine 0.54 L, Estim Creat Clear Calc 61.56, Est GFR (MDRD) Non-Af 93, B UN/Creatinine Ratio 38.9 H, Glucose 91, Calcium 9.0, Phosphorus 3.2, Magnesium 1.9 Micro: Microbiology 05/11/25 23:59 Blood Culture (Wb) - Anticubital Left Blood Culture - Preliminary No growth in 48 hours. 05/11/25 17:31 Blood Culture (Wb) - Left Forearm Blood Culture - Preliminary No growth in 48 hours. 05/13/25 12:00 Stool Stool Occult Blood (MARINA) - Final Occult Blood Positive Physical Exam Const alert and no apparent distress General Appearance: cooperative, well kempt and well developed Orientation / Consciousness: awake, oriented to person and oriented to place HEENT normocephalic, head/scalp atraumatic and moist oral mucous membranes HEENT Narrative: Patient is extremely hard of hearing Eyes PERRL, EOMs intact bilaterally and conjunctivae normal Neck supple, no JVD, thyroid normal and no carotid bruits General: trachea midline Resp normal respiratory effort, no retractions, no use of accessory muscles and clear to auscultation bilaterally Auscultation: Negative for rales, rhonchi or wheezes Cardio regular rate, regular rhythm, S1 normal heart sound, S2 normal heart sound, no murmurs, no rub and no gallops GI normal to inspection, nondistended, normoactive bowel sounds, soft to palpation, non-tender and non-distended Extremity no clubbing, cyanosis or edema Skin no rashes or lesions noted General Skin Exam: no breakdown Neuro CN's II-XII intact bilaterally, moves all extremities, no focal motor deficits and no sensory deficits noted Sensorium / Orientation: awake, alert, oriented to person and oriented to place Speech: speech normal Psych affect normal Assessment & Plan Assessment/Plan (1) Generalized weakness: PLAN: Plan 1. Acute debility-PT and OT are continuing to work with the patient, we are waiting for approval for the patient to go to a skilled facility #2 recent right humeral fracture (05/08/2025) with debility-PT and OT will continue to work with the patient, again she will need to go to a long term facility for short-term rehab services. #3 hyponatremia-corrected at this time #4 anemia-etiology unclear, patient's hemoglobin remained stable at this time #5 essential hypertension-patient will remain on her present medication #6 hypothyroidism-patient is on Synthroid #7 chronic depression-patient is on Cymbalta #8 obstructive sleep apnea-patient uses CPAP at night Total clinical time spent by myself addressing patient's medical issues, reviewing all of her data, and collaborating with patient's care team: 35 minutes Charges/Coding Visit Charges Inpatient E&M: 64119 Subs Hosp L2 Date medically ready for discharge: 05/14/25 Reason for DC delay: Precert pending from insurance
[2025-05-16] MEDS: 0.9% Saline Lock 10 ML Syringe IV (19:55)
[2025-05-16 19:57] VITALS: BP 114/67; PULSE 86; RESP 17; TEMP 36.8; O2SAT 100
[2025-05-16 19:59] VITALS: O2SAT 100
[2025-05-17 02:00] VITALS: BP 121/65; PULSE 78; RESP 18; TEMP 36.6; O2SAT 95
[2025-05-17 05:41] VITALS: BMI 35.8
[2025-05-17 08:00] VITALS: BP 121/61; PULSE 86; RESP 18; TEMP 36.7; O2SAT 95
[2025-05-17] MEDS: HYDROcodone Bitartrate/Apap 5/325 Tablet PO ×2 (08:29→15:03)
--- NOTE | 2025-05-17 09:07 | WOUNDNOTE ---
Wound photo: right breast/upper abdomen
--- NOTE | 2025-05-17 11:45 | CASEMGMT ---
Discharge Planning [facility] has obtained auth to admit. SW updated. Sylvie Elise DC Planning Asst.
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
[2025-05-17 13:46] VITALS: BP 131/87; PULSE 86; RESP 18; TEMP 36.7; O2SAT 95
--- NOTE | 2025-05-17 13:48 | PCM.DC.SUM ---
Providers Date of Admission: 05/11/25 Date of Discharge: 05/17/25 Primary Care Physician: Dr. Ayleen Tam MD Consultations 05/12/25 04:33 Consult: Onc/Wound/traffic counter Routine Comment: Reason for Consult:: [place] on right breast and abdomen. 05/12/25 07:40 Consult: Orthopedics Routine Consulting Provider: Tarun Cheng Reason for Consult: Right femoral fracture EMERGENT Consult: No MD Notified: Yes Date Notified: 05/12/25 Time Notified: 08:44 Method of Notification: Verbal Comments:: see patient this a.m. must have been notified byanother Reason For Visit: HIGHLY ELEVATED BUN/CREATININE RATIO, LEUKOCYTOSIS Diagnosis Discharge Diagnosis (1) Generalized weakness: Status: Acute Code(s): R53.1 - Weakness (2) Closed fracture of right proximal humerus: Status: Acute Code(s): S42.201A - Unspecified fracture of upper end of right humerus, initial encounter for closed fracture Plan 1. Acute debility-PT and OT are continuing to work with the patient, we are waiting for approval for the patient to go to a skilled facility #2 recent right humeral fracture (05/08/2025) with debility-PT and OT will continue to work with the patient, again she will need to go to a nursing home facility for short-term rehab services. #3 hyponatremia-corrected at this time #4 anemia-etiology unclear, patient's hemoglobin remained stable at this time #5 essential hypertension-patient will remain on her present medication #6 hypothyroidism-patient is on Synthroid #7 chronic depression-patient is on Cymbalta #8 obstructive sleep apnea-patient uses CPAP at night Total clinical time spent by myself addressing patient's medical issues, reviewing all of her data, and collaborating with patient's care team: 35 minutes Medications at Discharge Home Medications levothyroxine 75 mcg tablet 75 mcg PO DAILY thyroid 12/23/13 losartan 50 mg tablet 50 mg PO DAILY bp 03/15/19 diphenhydramine HCl 25 mg capsule (Benadryl) 25 mg PO QDAY PRN allergies 07/12/19 duloxetine 60 mg capsule,delayed release 60 mg PO DAILY depression 07/13/19 acetaminophen 500 mg tablet 1,000 mg PO Q8H PRN Pain 1-10 Or Fever 08/15/20 calcium 500 mg (as carbonate)-vitamin D3 5 mcg (200 unit) tablet 1 tab PO BIDCM 08/30/20 esomeprazole magnesium 40 mg capsule,delayed release 40 mg PO 0600,1700 08/30/20 rosuvastatin 10 mg tablet 10 mg PO DAILY cholesterol #90 tabs 05/06/24 vdtzarb-gvjnxovbpxzjj-wibrbjzr 250 mg-250 mg-65 mg tablet (Excedrin Extra Strength) 1 tab PO Q6H PRN headache 05/11/25 cyanocobalamin (vitamin B-12) 1,000 mcg tablet,extended release (Vitamin B-12 ER) 3,000 mcg PO DAILY supplement 05/11/25 gabapentin 100 mg capsule 100 mg PO BID 05/11/25 loperamide 2 mg capsule (Anti-Diarrheal (loperamide)) 2 mg PO Q6H PRN diarrhea 05/11/25 hydrocodone-acetaminophen 5-325mg 5mg-325mg 1 tab PO Q6H PRN PRN Pain Score 6-10 3 days #10 tabs 05/17/25 menthol 0.44 %-zinc oxide 20.6 % topical ointment (Calmoseptine) 1 applic topical BID #0 grams 05/17/25 nystatin 100,000 unit/gram topical powder 1 applic topical BID #0 grams 05/17/25 pantoprazole 40 mg tablet,delayed release 40 mg PO DAILY #0 tabs 05/17/25 polysaccharide iron complex 150 mg iron capsule (Ferrex) 150 mg PO DAILY #0 caps 05/17/25 Hospital Course Operations None Procedures None Summary of Care Provided Minutes Spent on Discharge: 31 Hospital Course: This 79-year-old white female was seen in the emergency room at [facility] due to inability to perform ADLs at home due to a recent right humeral fracture. Patient was unable to take care of herself at home. Patient's labs were remarkable for a sodium of 129-she had a previous known history of SIADH-BUN was elevated at 59 with a normal serum creatinine. Patient was seen in consultation by orthopedic surgery who requested the patient to follow-up after discharge from the hospital. She was seen by PT and OT, it was recommended that the patient go to a nursing home facility for further care. On 05/17/2025, patient was seen and examined:alert and no apparent distress General Appearance: cooperative, well kempt and well developed Orientation / Consciousness: awake, oriented to person and oriented to place HEENT normocephalic, head/scalp atraumatic and moist oral mucous membranes HEENT Narrative: Patient is extremely hard of hearing Eyes PERRL, EOMs intact bilaterally and conjunctivae normal Neck supple, no JVD, thyroid normal and no carotid bruits General: trachea midline Resp normal respiratory effort, no retractions, no use of accessory muscles and clear to auscultation bilaterally Auscultation: Negative for rales, rhonchi or wheezes Cardio regular rate, regular rhythm, S1 normal heart sound, S2 normal heart sound, no murmurs, no rub and no gallops GI normal to inspection, nondistended, normoactive bowel sounds, soft to palpation, non-tender and non-distended Extremity no clubbing, cyanosis or edema Skin no rashes or lesions noted General Skin Exam: no breakdown Neuro CN's II-XII intact bilaterally, moves all extremities, no focal motor deficits and no sensory deficits noted Sensorium / Orientation: awake, alert, oriented to person and oriented to place Speech: speech normal Psych affect normal Patient was discharged from [facility] care facility for skilled services on 05/17/2025. Weight / BMI Weight Weight: 95.2 kg Body Mass Index (BMI) 35.8 ABG / Lab / Microbiology Data 05/16/25 06:33 05/16/25 06:33 Microbiology: Microbiology 05/11/25 23:59 Blood Culture (Wb) - Anticubital Left Blood Culture - Final No growth in 5 days. 05/11/25 17:31 Blood Culture (Wb) - Left Forearm Blood Culture - Final No growth in 5 days. 05/13/25 12:00 Stool Stool Occult Blood (MARINA) - Final Occult Blood Positive D/C Instructions DC O2, CPAP, BIPAP Needs Home O2 Discharge instructions: No Meaningful Use Info Meaningful Use Meaningful Use Diagnoses (Choose all that apply): None applicable Discharge Plan Admission Admit Date/Time: 05/11/25 21:10 Primary Reason for Your Visit: debility Attending Provider: Steffen Crowley Primary Care Provider: Ayleen Tam Consulting Providers: Ifeanyi Shaikh; Tarun Cheng; Ifeanyi Fernandez Discharge Orders/Prescriptions Prescriptions: New hydrocodone-acetaminophen 5-325 mg Tablet 1 tab PO Q6H PRN PRN (Reason: Pain Score 6-10) 3 Days Qty: 10 0RF polysaccharide iron complex [Ferrex 150] 150 mg iron Capsule 150 mg PO DAILY Qty: 0 0RF menthol-zinc oxide [Calmoseptine] 0.44-20.6 % Ointment 1 applic topical BID Qty: 0 0RF Protocol: *Topical Application Instructions APPLICATION INSTRUCTIONS: Buttocks pantoprazole 40 mg Tablet,Delayed Release (Dr/Ec) 40 mg PO DAILY Qty: 0 0RF nystatin 100,000 unit/gram Powder 1 applic topical BID Qty: 0 0RF Protocol: *Topical Application Instructions APPLICATION INSTRUCTIONS: Under Breasts, folds Continued diphenhydramine HCl [Benadryl] 25 mg capsule 25 mg PO QDAY PRN (Reason: allergies) levothyroxine 75 MCG tablet 75 mcg PO DAILY Patient Comments: THYROID SUPPLEMENT losartan 50 MG tablet 50 mg PO DAILY duloxetine 60 mg capsule,delayed release(DR/EC) 60 mg PO DAILY acetaminophen 500 MG tablet 1,000 mg PO Q8H PRN (Reason: Pain 1-10 Or Fever) calcium carbonate-vitamin D3 1 TABLET tablet 1 tab PO BIDCM 0RF gabapentin 100 mg capsule 100 mg PO BID cyanocobalamin (vitamin B-12) [Vitamin B-12] 1,000 mcg tablet extended release 3,000 mcg PO DAILY Excedrin Extra Strength 250-250-65 mg tablet 1 tab PO Q6H PRN (Reason: headache) loperamide [Anti-Diarrheal (loperamide)] 2 mg capsule 2 mg PO Q6H PRN (Reason: diarrhea) rosuvastatin 10 mg tablet 10 mg PO DAILY Qty: 90 3RF Discontinued aspirin 81 MG tablet,chewable 81 mg PO DAILY meloxicam 15 MG tablet 15 mg PO DAILY PRN PRN (Reason: Pain 1-10 Or Fever) ferrous sulfate 27 MG tablet 27 mg PO DAILY hydrocodone-acetaminophen 5-325 mg tablet 1 tab PO Q6H PRN PRN (Reason: Pain) 3 Days Qty: 10 0RF multivitamin [Daily Multi-Vitamin] Tablet 1 tab PO DAILY No Action esomeprazole magnesium 40 MG capsule 40 mg PO 0600,1700 0RF Referrals / Follow Up: Ayleen Tam MD [Primary Care Provider] - Tarun Cheng MD [Med Staff - Active Staff] - See Referral Note (in two weeks-call for appointment) Disposition Disposition (needs filled in before D/C Order can be placed): Care Home Facility Charges/Coding Visit Charges Inpatient E&M: 02387 Disch Hosp >30min
--- NOTE | 2025-05-17 13:54 | CASEMGMT ---
Social Work Precert has been obtained.? Physician updated and pt is ready for discharge today.? PASRR form completed in [facility]. SW met with pt and they are agreeable to discharge plan as stated above.? DCA notified of discharge readiness. DCA to complete all final arrangements and notifications. Disposition:[facility], skilled level of care DIMAS Wise
--- NOTE | 2025-05-17 15:06 | CASEMGMT ---
Discharge Planning Discharge orders, signed med list, and transport time sent to [facility]. Physicians will transport pt by wheelchair at 3:30p. Nursing, SW, and pt updated. Pt states that her EC/friend (Naty) is aware that she is leaving today but doesn't know time. Multiple calls attempted with no ring tone. Sylvie Elise DC Planning Asst.
--- NOTE | 2025-05-17 15:20 | NURSING ---
attempt to call report to [facility] x2 unsucessful
--- NOTE | 2025-05-17 15:23 | NURSING ---
attempt to call report again unsucessful
--- NOTE | 2025-05-17 15:33 | NURSING ---
attempt to call [facility] again with report is unsucessful-packet has been sent to facility with squad/pt
--- NOTE | 2025-05-18 09:45 | CASEMGMT ---
Social Work- AMAURY received a call from Naty, pt cousin and contact. AMAURY updated Naty on pt discharge and provided [facility] contact number. AMAURY verified Naty's contact is updated in our system; contact is correct. DIMAS Wise
== END 2025-05-17 15:25 | disposition skilled nursing facility (03) | DRG 948 ==
LOC: ED 17:31 → MS3 22:53
PROVIDERS: Internal Medicine; Admitting Provider Internal Medicine; Emergency Provider Emergency Medicine; PCP Internal Medicine; Referring Provider Internal Medicine; Visit Provider Internal Medicine
DX: R53.1 Weakness (principal); E22.2 Syndrome of inappropriate secretion of antidiuretic hormone; E87.20 Acidosis, unspecified; S42.211A Unspecified displaced fracture of surgical neck of right humerus, initial encounter for closed fracture; D63.8 Anemia in other chronic diseases classified elsewhere; E03.9 Hypothyroidism, unspecified; E66.812 Obesity, class 2; D72.829 Elevated white blood cell count, unspecified; I10 Essential (primary) hypertension; G47.33 Obstructive sleep apnea (adult) (pediatric); G62.9 Polyneuropathy, unspecified; E78.5 Hyperlipidemia, unspecified; F41.8 Other specified anxiety disorders; I25.10 Atherosclerotic heart disease of native coronary artery without angina pectoris; K21.9 Gastro-esophageal reflux disease without esophagitis; W18.39XA Other fall on same level, initial encounter; M19.90 Unspecified osteoarthritis, unspecified site; Z68.36 Body mass index [BMI] 36.0-36.9, adult; Z95.5 Presence of coronary angioplasty implant and graft; Z87.891 Personal history of nicotine dependence; Z79.82 Long term (current) use of aspirin; Z79.1 Long term (current) use of non-steroidal anti-inflammatories (NSAID); Z79.899 Other long term (current) drug therapy; Z79.890 Hormone replacement therapy; R53.81 Other malaise; Z96.659 Presence of unspecified artificial knee joint; Z96.643 Presence of artificial hip joint, bilateral; Z99.89 Dependence on other enabling machines and devices; R79.9 Abnormal finding of blood chemistry, unspecified
CPT/HCPCS: 36415; 70450; 73030; 74177; 80048; 80053; 80061; 81001; 82274; 82728; 82746; 82803; 83036; 83540; 83550; 83605; 83690; 83735; 83930; 83935; 84100; 84443; 84484; 85025; 86850; 86900; 86901; 87040; 93005; 94668; 97110; 97162; 97166; 97530; 97535; 99284; 99285; P9612; Q9967; A4216; J2916

== ENCOUNTER → 2025-06-19 | Outpatient (CLI) | payer MEDICARE, MEDICAID, SELFPAY ==
[2019-07-16 11:02] VITALS: BMI 34.8
--- OUTSIDE RECORDS SUMMARY | 2025-06-19 12:54 | XMS RPT_ITS | CCD ---
Author Organization [facility] Care Team Providers Care Battery Recharger Name Role Phone Daisy Jha DC Unavailable Berta Isaac Unavailable Unavailable Daisy Jha DC Unavailable Deb Yusuf MD Primary Care Provider Coy Chan MD Unavailable Deb Yusuf MD Primary Care Provider Coy Chan MD Unavailable Deb Yusuf MD Primary Care Provider Coy Chan MD Unavailable Coy Chan MD Unavailable Deb Yusuf MD Primary Care Provider Kirkpatrick SOCIAL SCIENCE TEACHER.DRAW OPERATOR, Jaja Unavailable Divya SOCIAL SCIENCE TEACHER.SEAFOOD HARVESTER, Olga Unavailable Divya SOCIAL SCIENCE TEACHER.SEAFOOD HARVESTER, Olga Unavailable DIVYA OLGA Referring Unavailable DEB YUSUF Primary Care Unavailable DIVYA OLGA Attending Unavailable KJAMPCOTY DEB Manasa Primary Care Unavailable DIVYA OLGA Attending Unavailable MADELIN DEB Manasa Primary Care Unavailable Kirkpatrick SOCIAL SCIENCE TEACHER.DRAW OPERATOR, Jaja Unavailable Dr. Deb Yusuf MD Primary Care Provider [phone] Dr. Kev Nelson DO Emergency Provider Dr. Virgil Corrales DO Emergency Provider Dr. Ifeanyi Shaikh DO Admit Provider Unavail able Dr. Ifeanyi Shaikh DO Attending Provider Unav ailable de Chai DO, Dr. Suggs Referring Provider Unav ailable Leslie DO, Dr. Angulo Attending Provider [phone] Antoni LEDESMA, Dr. Herman Emergency Provider de Chai DO, Dr. Suggs Admit Provider Unavail able de Chai LEDESMA, Dr. Suggs Referring Provider Unav ailable de Chai DO, Dr. Sugsg Other Provider Unavail able Tarun Cheng MD Other Provider [phone] Carline DO, Dr. Bourne Attending Provider [phone] Jim SALAZAR, Dr. Suggs Other Provider Unavailable Jim SALAZAR, Dr. Suggs Attending Provider Unavailkatie Edmond MD, Dr. Banks Other Provider [phone] Tarun Cheng MD Attending Provider [phone] Carline LEDESMA, Dr. Bourne Other Provider [phone] Maribel Yusufa Manasa Primary Care Unavailable Tarun Cheng Attending Unavailable Ifeanyi Shaikh Admitting Unavailable de Ifeanyi Paula Referring Unavailable de Ifeanyi Puala Consulting Unavailable Ifeanyi Fernandez Consulting Unavailable Ifeanyi Shaikh Attending Unavailable Steffen Crowley Attending Unavailable Tarun Cheng Consulting Unavailable Steffen Crowley Consulting Unavailable Ifeanyi Fernandez Attending Unavailable Darren Edmond Consulting Unavailable Kev Nelson Attending Unavailable Madelin Deb Manasa Primary Care Unavailable de Ifeanyi Paula Admitting Unavailable de Ifeanyi Paula Referring Unavailable de Ifeanyi Paula Consulting Unavailable Steffen Crowley Attending Unavailable Madelin Deb Manasa Primary Care Unavailable Tarun Cheng Consulting Unavailable Ifeanyi Fernandez Consulting Unavailable Allergies Allergy Classification Reported Allergen(s) Allergy Type Date of Onset Reaction(s) Facility Cats (1 source) Cat Animal Allergy (Dander) 09-02-20 12 Other: See Comments [facility] Doxycycline (1 source) Doxycycline Drug Allergy 03-15-20 19 Other: See Comments [facility] Latex (1 source) Latex Substance Allergy 02-29-20 08 Rash, Hives [facility] Lincosamides (antibiotic) (1 source) Clindamycin Drug Allergy 06-21-20 13 Rash [facility] Methotrexate (1 source) Methotrexate Drug Allergy 04-11-20 15 Other: See Comments [facility] NITROFURANTOIN, MACROCRYSTALS / Nitrofurantoin, Monohydrate (1 source) NITROFURANTOIN, MACROCRYSTALS / Nitrofurantoin, Monohydrate Drug Allergy 12-10-19 18 Unknown [facility] Penicillins (antibiotic) (1 source) Penicillins Drug Allergy 09-02-20 05 Shortness of Breath [facility] Quinolones (antibiotic) (1 source) Ciprofloxacin Drug Allergy 03-27-20 12 Other: See Comments, Hives [facility] Serotonin Reuptake Inhibitors (SSRIs) (1 source) traZODone Drug Allergy 02-20-20 13 Intolerance [facility] Work Phone: vortioxetine (1 source) vortioxetine Drug Allergy 04-03-20 16 GI Upset [facility] Work Phone: (20 sources) ciprofloxacin drug allergy 03-03-20 17 [facility] Work Phone: (11 sources) ciprofloxacin drug allergy [facility] Work Phone: (20 sources) clindamycin; Translations: [CLINDAMYCIN] drug allergy 06-21-20 13 Rash [facility] Work Phone: (12 sources) natural latex rubber; Translations: [LATEX] allergy to substance 02-29-20 08 [facility] Work Phone: (11 sources) penicillin drug allergy [facility] Work Phone: (11 sources) traZODone drug allergy 03-03-20 17 Rash [facility] Work Phone: (20 sources) traZODone; Translations: [TRAZODONE] food allergy 02-20-20 13 Intolerance [facility] Work Phone: Comment on above: [place] [facility] (11 sources) ACETYL SALICYLIC ACID drug allergy 03-03-20 17 [facility] Work Phone: (20 sources) Cat; Translations: [CATS] Allergy to substance 09-02-20 12 Other: See Comments [facility] (20 sources) Ciprofloxacin; Translations: [CIPROFLOXACIN] Drug Allergy 03-27-20 12 Other: See Comments, [facility] (20 sources) Latex Propensity to adverse reactions 02-29-20 08 Rash, [facility] Work Phone: (20 sources) Methotrexate; Translations: [METHOTREXATE] Drug Allergy 04-11-20 15 Other: See Comments [facility] Work Phone: (20 sources) NITROFURANTOIN, MACROCRYSTALS / Nitrofurantoin, Monohydrate; Translations: [NITROFURANTOIN MONOHYD/M-CRYST] Drug Allergy 12-10-19 18 Unknown [facility] (4 sources) Penicillins; Translations: [PENICILLINS] Propensity to adverse reactions 09-02-20 05 Shortness of Breath [facility] Work Phone: (20 sources) vortioxetine; Translations: [VORTIOXETINE] Drug Allergy 04-03-20 16 GI Upset [facility] Work Phone: (19 sources) Penicillins Propensity to adverse reactions 09-02-20 05 Shortness of Breath [facility] Work Phone: (20 sources) Doxycycline; Translations: [DOXYCYCLINE] Drug Allergy 03-15-20 19 Other: See Comments [facility] Work Phone: (20 sources) Cat Dander; Translations: [CAT DANDER] Drug Allergy 07-13-20 19 Other: See Comments [facility] Work Phone: (5 sources) Penicillins Propensity to adverse reactions 09-02-20 05 Shortness of Breath [facility] (4 sources) Ciprofloxacin; Translations: [ciprofloxacin HCl] Drug Allergy 11-08-19 21 [facility] (3 sources) Nitrofurantoin Drug Allergy 11-08-19 21 Other [facility] (3 sources) Penicillins Allergy to substance 11-08-19 21 Shortness of breath [facility] (1 source) Ciprofloxacin Drug Allergy 05-11-20 25 [facility] (1 source) Doxycycline Drug Allergy 05-11-20 25 [facility] (1 source) Latex Drug allergy (disorder) 05-11-20 25 [facility] (1 source) Methotrexate Drug Allergy 05-11-20 25 [facility] (1 source) Nitrofurantoin Drug Allergy 05-11-20 [facility] (1 source) Penicillins Drug allergy (disorder) 05-11-20 [facility] (1 source) vortioxetine Drug Allergy 05-11-20 [facility] Medications Current Medications Medication Drug Class(es) [...] 2016 8:27am take 1 tablet by jagruti th every four hours as needed TYLENOL EXTRA STRENGTH 500 MG TABS po q 4 hrs prn ACETAMINOPHEN [id number] Ramila Cowan LPN Comment on above: Take 500 mg by mouth once daily as needed. acetaminophen 250 mg / aspirin 250 mg / caffeine 65 mg oral tablet (10 sources) Platelet Aggregation Inhibitor, Nonsteroidal Anti-inflammatory Drug, Central Nervous System Stimulant, Methylxanthine Start: 05-11-2025 Aspirin-Acetaminophe n-Caffeine (Excedrin Extra Strength) 250-250-65 mg tablet Active 1 {tbl} PO EVERY 6 HOURS as needed for headache May 11, 2025 12:00am Start: 07-19-2020 End: 08-05-2020 Mknzpnz-Vzyrsznmsripo-Uqykzc ne 1 EACH tablet Discontinued 1 NMA PO NEEDED as needed for Headache July 19, 2020 12:00am August 05, 2020 9:54am Start: 07-12-2019 End: 03-31-2020 Sbtjryn-Nqprulzgcjjep-Qgikhb ne (Excedrin Extra Strength) 250-250-65 mg tablet [...] 03, 2016 12:00am September 06, 2016 8:27am acetaminophen 325 mg / HYDROcodone bitartrate 5 mg oral tablet (20 sources) Opioid Agonist Start: 05-08-2025 End: 05-17-2025 take 1 tablet by mouth every six hours as needed for pain Hydrocodone-Acetaminophen 5-325 mg Tablet Active 1 {tbl} PO EVERY 6 HOURS NEEDED as needed for Pain Score 6-10 10 3 0 May 17, 2025 Closed fracture of right proximal humerus Start: 03-15-2019 End: 03-31-2020 Hydrocodone-Acetaminophen 1 [...] tabs po q 4 hrs prn HYDROCODONE-ACETAMINOPHEN [id number] Berta Isaac Start: 07-23-2013 [facility] 2 tablets [facility] four hours as needed VICODIN 5-500 MG TABS 2 tabs po q 4 hrs prn HYDROCODONE-ACETAMINOPHEN [id number] Ramila Cowan LPN ASPIRIN/ACETAMINOPHEN/CAFFEI NE (EXCEDRIN EXTRA STRENGTH ORAL) (20 [...] mg / cholecalciferol 200 unt oral tablet (9 sources) Vitamin D Start: 08-30-20 20 Calcium [...] One tablet by mouth daily CALCIUM CARB-CHOLECALCIFEROL [id number] Ramila Cowan LPN calcium citrate 1190 mg [...] X-L) (20 sources) Start: 020 Diaper,Brief, Adult,Disposable (STEERads CLASSIC ADULT BRIEFS X-L) Pull ups with [...] 2019 12:00am take 2 tablets by mo uth once daily as needed BENADRYL 25 MG TABS 50mg po q day prn DIPHENHYDRAMINE HCL [id number] Ramila Cowan LPN take 2 tablets by mo uth once daily as needed BENADRYL 25 MG TABS 50mg po q day prn DIPHENHYDRAMINE HCL [id number] Ramila Cowan LPN Comment on above: Take [...] on above: Take 1 capsule by mo [facility] twice daily before meals. ferrous gluconate [...] daily. Active gabapentin 100 mg oral capsule (6 sources) Anti-epileptic Agent Start: End: take 1 [...] area once daily as needed. For scalp. loperamide hydrochloride 2 mg oral capsule (12 sources) Opioid Agonist Start: take 1 capsule by mouth every six hours as needed for diarrhea Loperamide (Anti-Diarrheal (Loperamide)) 2 mg capsule Active 2 mg PO EVERY 6 HOURS as needed for diarrhea May 11, 2025 12:00am Start: 07-19-2020 End: 11-11-2020 take 1 capsule by mouth every two hours as needed for diarrhea Loperamide 2 MG capsule Discontinued 2 mg PO EVERY 2 HOURS NEEDED as needed for diarrhea July 19, 2020 12:00am November 11, 2020 9:58am loperamide HCl ( IMODIUM ORAL) Take 1 tablet by mouth as needed. Active losartan potassium 50 mg oral tablet (20 sources) Angiotensin 2 Receptor Dave Start: 03-15-2019 End: 05-10-2025 take 1 tablet by mouth once daily losartan (COZAAR) 50 mg tablet Indications: Essential hypertension Take 1 tablet by mouth once daily. 90 tablet 1 05/10/2025 Active Comment on above: Take 1 tablet by jagruti th once daily. take 1 tablet by jagruti th once daily meloxicam 15 mg oral tablet (20 sources) Nonsteroidal Anti-inflammatory Drug Start: 11-08-2020 End: 05-17-2025 take 1 tablet by mouth once daily as needed meloxicam (MOBIC) 15 mg tablet Take 1 tablet by mouth once daily as needed. 90 tablet 3 04/13/2025 Active Start: 03-15-2019 End: 08-05-2020 take 1 tablet [...] by jagruti th once daily as needed. Menthol / Zinc Oxide (1 source) Start: 05-17-2025 Menthol-Zinc Oxide (Calmoseptine) 0.44-20.6 % Ointment Active 1 NMA TOPICAL TWICE A DAY 0 0 May 17, 2025 12:00am Please contact the information source for Protocol details. Miscellaneous Medical Supply [facility] (20 sources) Start: 11-26-2019 Miscellaneous Medical Supply [facility] Boost Max 1 can twice daily 30 Each 11 11/26/2019 Active Comment on above: Boost Max 1 can twic e daily nystatin 100 unt/mg topical powder (20 sources) Polyene Antifungal Start: 05-17-2025 Nystatin 100,000 unit/gram Powder Active 1 NMA TOPICAL TWICE A DAY 0 0 May 17, 2025 12:00am Please contact the information source for Protocol details. Start: 11-17-2023 nystatin (MYCO STATIN) powder Apply 1 application to affected area [...] above: Boost Max, 2 cartons per day pantoprazole 40 mg delayed release oral tablet (1 source) Proton Pump Inhibitor Start: 05-17-20 take 1 tablet by mouth once daily Pantoprazole 40 mg Tablet,Delayed Release (Dr/Ec) Active 40 mg PO DAILY 0 May 17, 2025 12:00am polysaccharide iron complex 150 mg oral capsule (20 sources) Start: 05-17-20 Polysaccharide Iron Complex (Ferrex 150) 150 mg iron Capsule Active 150 mg PO DAILY 0 May 17, 2025 12:00am Start: 03-15-2019 End: 07-12-2019 Polysaccharide Iron Complex 150 MG capsule Discontinued 28 mg PO DAILYCM@1200 March 15, 2019 8:18pm July 12, 2019 7:54pm Start: 09-13-2016 End: 03-29-2025 Polysaccharide Iron Complex (Ferrex 150) 150 MG capsule Discontinued 150 mg PO DAILYCM@1200 14 0 September 13, 2016 1:00am March 15, 2019 8:18pm Comment on above: Take 1 capsule by [facility] once daily. silver sulfADIAZINE 10 mg/ml topical [...] Comment on above: Take 1 tablet by [facility] once daily. levothyroxine sodium 0.075 mg oral tablet (20 sources) l-Thyroxine Start: 12-23-19 14 End: 02-22-20 25 take 1 tablet by mouth once daily Levothyroxine 75 MCG tablet Active 75 ug PO DAILY December 23, 2013 1:00am thyroid Comment on above: Take 1 tablet by jagruti th once daily. Underpads 30 X 30 pads (20 sources) Start: 05-04-20 Underpads 30 X 30 pads Change daily and as needed. N39.46, N95.2 30 Each 11 05/04/2020 Active Comment on above: Change daily and as needed. N39.46, N95.2 vitamin b12 1 mg extended release oral tablet (20 sources) Vitamin B12 Start: 05-11-20 25 take 3 tablets by mouth once daily Cyanocobalamin (Vitamin B-12) (Vitamin B-12) 1,000 mcg tablet extended release Active 3000 ug PO DAILY May 11, 2025 12:00am supplement Start: 07-19-2020 End: 08-05-2020 take 1 capsule [...] VITAMIN B 12 250 MCG LOZG CYANOCOBALAMIN [id number] Ramila Cowan LPN Comment on above: Dissolve [...] Drug Class(es) Dates Sig (Normalized) Sig (Original) amLODIPine 2.5 mg oral tablet (20 sources) Dihydropyridine Calcium Channel Dave End: 11-24-2013 take 1 tablet by mouth once daily NORVASC 2.5 MG TABS One tablet by mouth daily AMLODIPINE BESYLATE [id number] Olga Lara MD aspirin 81 mg chewable tablet (20 sources) Platelet Aggregation Inhibitor, Nonsteroidal Anti-inflammatory Drug Start: 08-15-2020 End: 05-17-2025 take 1 tablet by mouth once daily Aspirin 81 MG tablet,chewable Discontinued 81 mg PO DAILY August 15, 2020 3:28pm May 17, 2025 1:42pm DVT Prophylaxis Start: 08-05-2020 End: 08-15-2020 take [...] 2020 9:54am supplement Comment on above: DAILY bismuth subsalicylate 17.5 mg/ml oral suspension (3 sources) Bismuth Start: 021 End: take 15 mL by mouth every six [...] hydrochloride 150 mg extended release oral tablet (3 sources) Aminoketone Start: 015 End: take 1 tablet by mouth once daily Bupropion Hcl 150 MG Tab.Er.24h Discontinued 150 mg PO DAILY October 16, 2015 1:00am October 19, 2015 3:34pm caffeine 200 mg oral tablet (3 sources) Central Nervous System Stimulant, Methylxanthine Start: End: Caffeine 200 MG tablet Discontinued 100 mg PO NEEDED as needed for Headache July 19, 2020 12:00am August 05, 2020 9:54am CALCIUM CARB-CHOLECALCIFEROL (8 sources) take 1 tablet by mouth once daily CALCIUM-VITAMIN D3 500-400 MG-UNIT TABS One tablet by mouth daily CALCIUM CARB-CHOLECALCIFEROL [id number] Ramila Cowan LPN cefdinir 300 mg oral capsule (3 sources) Cephalosporin Antibacterial Start: End: take 1 capsule by mouth every twelve hours Cefdinir 300 MG capsule Discontinued 300 mg PO Q12H November 11, 2020 1:00am May 11, 2025 6:54pm cetirizine hydrochloride 10 mg oral tablet (20 sources) Histamine-1 Receptor Antagonist Start: 016 End: take 1 tablet by mouth once [...] 23, 2013 1:00am October 19, 2015 3:33pm ZTE CHILDRENS ALLERGY 1 MG/ML SYRP 5mg po q day CETIRIZINE HCL [id number] Ramila Cowan LPN chlorhexidine gluconate 40 mg/ml medicated liquid soap (20 sources) Start: 11-24-2013 End: 03-03-2017 CHLORHEXIDINE GLUCONATE 4 % LIQD CHLORHEXIDINE GLUCONATE [id number] Olga Lara MD citalopram 40 mg oral tablet (11 sources) Serotonin Reuptake Inhibitor take 1 tablet by mouth once daily CELEXA 40 MG TABS One tablet by mouth daily CITALOPRAM HYDROBROMIDE [id number] Ramila Richmond Chapo FOUNDRY FINISHER clopidogrel 75 mg oral tablet (20 sources) P2Y12 Platelet Inhibitor Start: 07-13-2019 End: [...] supplies. docusate sodium 50 mg / sennosides, snf 8.6 mg oral tablet (3 sources) Start: 08-05-2020 End: 08-15-2020 Sennosides-Docusate Sodium 1 TABLET tablet Discontinued 2 {tbl} PO TWICE A DAY 0 August 05, 2020 12:00am August 15, 2020 3:28pm Take until first bowel movement, then as needed doxycycline hyclate 100 mg oral capsule (20 sources) Tetracycline-class Drug Start: 08-02-2013 End: 11-24-2013 DOXYCYCLINE HYCLATE 100 MG CAPS one every 12 hrs x 2 wks DOXYCYCLINE HYCLATE [id number] Olga Lara MD Start: 07-22-2013 End: 11-24-2013 take 1 tablet by mouth twice daily DOXYCYCLINE HYCLATE 100 MG TABS One tablet by mouth twice daily DOXYCYCLINE HYCLATE [id number] Olga Lara MD DULoxetine 60 mg delayed [...] Comment on above: Take 1 capsule by [facility] once daily. 0.4 ml enoxaparin sodium 100 mg/ml prefilled syringe (6 sources) Low Molecular Weight Heparin Start: 0 End: 0 Enoxaparin 40 MG/0.4 ML syringe Discontinued 40 mg SC DAILY@06August 15, 2020 3:28pm August 30, 2020 8:28pm DVT Prophylaxis Continue Lovenox until 2-week follow-up at [facility] for DVT prophylaxis famotidine 20 mg oral tablet (3 sources) Histamine-2 Receptor Antagonist Start: 6 End: 6 take 1 tablet by mouth once daily Famotidine 20 MG tablet Discontinued 20 mg PO DAILY 10 0 September 06, 2016 1:00am September 13, 2016 2:54pm ferrous sulfate 134 mg oral tablet (6 sources) Start: 1 End: 5 take 1 tablet by mouth once daily Ferrous Sulfate 27 MG tablet Discontinued 27 mg PO DAILY November 08, 2020 1:00am May 17, 2025 1:42pm SUPPLEMENT Start: 08-15-2016 End: 09-13-2016 take 1 tablet by mouth once daily Ferrous Sulfate 325 MG tablet Discontinued 325 mg PO DAILY@08August 15, 2016 12:00am September 13, 2016 2:54pm fluconazole 150 mg [...] daily. Rinse mouth after use. 1 Each 11 11/10/2022 07/13/2024 Discontinued Start: 07-06-2021 End: 11-08-2022 take 2 spray(s) by mouth once daily fluticasone (FLONASE) 50 mcg/actuation nasal spray Use 2 Sprays in each nostril once daily. Rinse mouth after use. 1 Each 07/06/2021 11/08/2022 Discontinued End: 11-24-2013 FLONASE 50 MCG/ACT SUSP 1 sp ray daily prn FLUTICASONE PROPIONATE [id number] Ramila Cowan LPN FLONASE 50 MCG/A CT SUSP 1 spray daily prn FLUTICASONE PROPIONATE [id number] Ramila Cowan LPN End: 11-24-2013 FLONASE 50 MCG/ACT SUSP 1 sp ray daily prn FLUTICASONE PROPIONATE [id number] Olga Lara MD Comment on above: Use [...] One tablet by mouth daily FOLIC ACID [id number] Ramila Cowan LPN Comment on above: Take 400 mcg by mout h once daily. Food Supplemt, Lactose-Reduced 120 ML liquid (6 sources) Start: 08-15-2020 End: 08-30-2020 take 1 [...] 15, 2020 12:00am August 15, 2020 3:28pm [id number] (8 sources) take 1 tablet by mouth once daily CONDROLITE 500-200-150 MG TABS One tablet by mouth daily DMUNBXYONFC-[id number] [id number] Ramila Cowan LPN [id number]-[id number] (3 sources) take 1 tablet by mouth once daily CONDROLITE 500-200-150 MG TABS One tablet by mouth daily [id number] Ramila Cowan LPN Hydrocodone Bitart/Apap 5-32 5 (3 sources) St ar t: 02 2 14 En d: 14 take 1 mg by mouth three times daily as needed for pain Hydrocodone Bitart/Apap 5-325 Discontinued 1 mg PO 3 TIMES DAILY NEEDED as needed for Mild/Moderate Pain December 23, 2013 1:00am January 05, 2014 12:30pm hydroxychloroquine sulfate 200 mg oral tablet (20 sources) Antirheumatic Agent En d: 10 -0 13 take 2 tablets by mouth once daily PLAQUENIL 200 MG TABS Two tablets by mouth daily HYDROXYCHLOROQUINE SULFATE [id number] Olga Lara MD lisinopril 10 mg oral tablet (3 sources) Angiotensin Converting Enzyme Inhibitor St ar t: 15 En d: 15 take 1 tablet by mouth once daily Lisinopril 10 MG tablet Discontinued 10 mg PO DAILY October 15, 2015 1:00am October 19, 2015 3:33pm metroNIDAZOLE 500 mg oral tablet (3 sources) Nitroimidazole Antimicrobial St ar t: 21 En d: 25 take 1 tablet by mouth three times daily Metronidazole 500 MG tablet Discontinued 500 mg PO THREE TIMES A DAY November 11, 2020 1:00am May 11, 2025 6:53pm mometasone furoate 0.05 mg/actuat metered dose nasal spray (3 sources) Corticosteroid St ar t: 16 En d: 22 mometasone (NASONEX) 50 mcg/actuation nasal spray Indications: Allergic rhinitis, cause unspecified Use 2 Sprays in the nose once daily. 1 Bottle 11 04/03/2016 05/21/2022 Discontinued Comment on above: Use 2 Sprays in the nose once daily. MULTIPLE VITAMINS-MINERALS (8 sources) take 1 tablet by mouth once daily CENTRUM TABS One tablet by mouth daily MULTIPLE VITAMINS-MINERALS [id number] Ramila Cowan LPN MULTIPLE VITAMINS-MINERALS (3 sources) take 1 tablet by mouth once daily CENTRUM TABS One tablet by mouth daily MULTIPLE VITAMINS-MINERALS [id number] Ramila Cowan LPN Qcltpjvp-Unm-Irha-Fa-Vit K-Lut 1 EACH tablet (3 sources) ar t: En d: 25 take 1 tablet by mouth once daily Ivcrrlib-Kon-Zxxf-Fa-Vit K-Lut 1 EACH tablet Discontinued 1 {tbl} PO DAILY November 08, 2020 1:00am May 11, 2025 11:25pm SUPPLEMENT Start: 11-08-2020 take 1 tablet by jagruti th once daily Qkaptawa-Wyw-Gpbg-Fa-Vit K-Lut 1 EACH tablet Active 1 {tbl} PO DAILY November 08, 2020 1:00am SUPPLEMENT Multivitamin (Daily Multi-Vitamin) tablet (1 source) Start: 05-11-2025 End: 05-17-2025 Multivitamin (Daily Multi-Vitamin) tablet Discontinued 1 {tbl} PO DAILY May 11, 2025 12:00am May 17, 2025 1:44pm supplement Multivitamin With Folic Acid 1 TABLET tablet (3 sources) Start: 10-16-2015 End: 03-31-2020 take 1 [...] and for 5 d after MUPIROCIN CALCIUM [id number] Olga Lara MD Start: 11-24-2013 End: 11-29-2013 BACTROBAN NASAL 2 % OINT twi ce daily for 5 days prior to surgery and for 5 d after MUPIROCIN CALCIUM [id number] Olga Lara MD Mupirocin Calcium (Bactroban Nasal) 1 GM Oint...G. (3 sources) Start: 01-03-2014 End: 01-18-2014 Mupirocin Calcium (Bactroban Nasal) 1 GM Oint...G. Discontinued 0.5 g NS TWICE A DAY January 03, 2014 12:00am January 18, 2014 2:36pm naproxen 500 mg oral tablet (3 sources) Nonsteroidal Anti-inflammatory Drug Start: 08-15-2016 End: 09-06-2016 Naproxen (Naprosyn) 500 MG tablet Discontinued 500 mg PO NEEDED as needed for Pain August 15, 2016 12:00am September 06, 2016 8:28am Nut.Tx.Comp. Immune Systm,Reg 237 ML liquid (6 sources) Start: 08-15-2020 End: 08-30-2020 take 1 [...] CPDR One tablet by mouth daily OMEPRAZOLE [id number] Ramila Cowan FOUNDRY FINISHER take 1 tablet by mouth once keyona y PRILOSEC 40 MG CPDR One tablet by mouth daily OMEPRAZOLE [id number] Ramila Cowan FOUNDRY FINISHER 2 ml ondansetron 2 mg/ml injection (3 sources) Serotonin-3 Receptor Antagonist Start: 08-05-2020 End: 08-30-2020 take 4 mg intravenously every eight hours as needed for nausea Ondansetron Hcl (Pf) 4 MG/2 ML solution Discontinued 4 mg IV EVERY 8 HOURS NEEDED as needed for NAUSEA 0 August 05, 2020 12:00am August 30, 2020 8:28pm oxyCODONE hydrochloride 5 mg oral tablet (9 sources) Opioid Agonist Start: 08-30-2020 End: 08-30-2020 [...] HOURS NEEDED as needed for Pain 90 0 September 06, 2016 1:00am September 13, 2016 2:54pm Start: 09-06-2016 End: 09-13-2016 take 1 tablet by mouth twice daily Oxycodone (Oxycontin) 10 MG tablet Discontinued 10 mg PO TWICE A DAY 2 0 September 06, 2016 1:00am September 13, [...] while experiencing diarrhea 5-6 times per day. predniSONE 10 mg oral tablet (20 sources) [...] 1 tablet by jagruti th once daily. For up to 3-5 days as directed for flare up of arthritis rivaroxaban 10 mg oral tablet (9 sources) Factor Xa Inhibitor Start: 6 End: 6 take 1 tablet by mouth once daily Rivaroxaban (Xarelto) 10 MG tablet Discontinued 10 mg PO DAILY@0600 30 0 September 06, 2016 1:00am September 13, 2016 2:54pm Start: 10-19-2015 End: 11-03-2015 take 1 tablet by mouth once daily Rivaroxaban (Xarelto) 10 MG tablet Discontinued 10 mg PO DAILY 1 October 19, 2015 1:00am November 03, 2015 [...] MG TABS .5mg po tid [facility] HCL [id number] Ramila Cowan LPN rosuvastatin calcium 10 mg oral tablet (20 sources) HMG-CoA Reductase Inhibitor Start: 07-19-2019 End: 05-06-2024 take 1 tablet by mouth once daily Rosuvastatin 10 mg tablet Discontinued 10 mg PO DAILY 90 February 04, 2023 9:02am May 06, 2024 11:24am cholesterol Comment on above: Take 10 mg by mouth once daily. sulfamethoxazole 800 mg / trimethoprim 160 mg oral tablet (3 sources) Dihydrofolate Reductase Inhibitor Antibacterial, Sulfonamide Antimicrobial Start: 01-03-2014 End: 01-05-2014 Sulfamethoxazole -Trimethoprim 1 TABLET tablet Discontinued 1 {tbl} PO TWICE A DAY January 03, 2014 12:00am January 05, 2014 12:30pm tigecycline 50 mg injection (20 sources) Tetracycline-class Antibacterial End: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 [facility] Comment on above: Performed By: #### L 501.2450, L500.4050, L100.0100 #### [facility] [address] [place], [address] MCH (RBC) [Entitic mass] 30.5 pg Normal 27.0-32.0 [facility] Comment on above: Performed By: #### L 501.2450, L500.4050, L100.0100 #### [facility] [address] [place], [address] MCHC (RBC) [Mass/Vol] 33.0 g/dL Normal 32-36 [facility] Comment on above: Performed By: #### L 501.2450, L500.4050, L100.0100 #### [facility] [address] [place], [address] MCV (RBC) [Entitic vol] 92.4 fL Normal 81-99 [facility] Comment on above: Performed By: #### L 501.2450, L500.4050, L100.0100 #### [facility] [address] [place], [address] Monocytes/100 WBC (Bld) 9.6 % Normal 0-[address] [facility] Comment on above: Performed By: #### L 501.2450, L500.4050, L100.0100 #### [facility] [address] [place], [address] Neutrophils/100 WBC (Bld) 63.6 % Normal 47-70 [facility] Comment on above: Performed By: #### L 501.2450, L500.4050, L100.0100 #### [facility] [address] [place], [address] Nucleated RBC (Bld) [#/Vol] 0 10*3/uL Normal 0-5 [facility] Comment on above: Performed By: #### L 501.2450, L500.4050, L100.0100 #### [facility] [address] [place], [address] Platelet mean volume (Bld) [Entitic vol] 8.9 fL Normal 6.2-12.0 [facility] Comment on above: Performed By: #### L 501.2450, L500.4050, L100.0100 #### [facility] [address] [place], [address] Platelets (Bld) [#/Vol] 216 10*3/uL Normal 150-450 [facility] Comment on above: Performed By: #### L 501.2450, L500.4050, L100.0100 #### [facility] [address] [place], [address] RBC (Bld) [#/Vol] 2.49 10*6/uL Low 4.2-5.4 [facility] Comment on above: Performed By: #### L 501.2450, L500.4050, L100.0100 #### [facility] [address] [place], [address] RDW SD 47.8 fl High 35.1-43.9 [facility] Comment on above: Performed By: #### L 501.2450, L500.4050, L100.0100 #### [facility] [address] [place], [address] WBC (Bld) [#/Vol] 6.8 10*3/uL Normal 4.4-11.0 [facility] Comment on above: Performed By: #### L 501.2450, L500.4050, L100.0100 #### [facility] [address] [place], [address] Basic Metabolic Profile (BMP )on 05-14-2025 BUN/CRE 32.4 RATIO High 10-20 [facility] Comment on above: Performed By: #### L 501.2450, L500.4050, L100.0100 #### [facility] [address] [place], [address] Calcium [Mass/Vol] 8.7 mg/dL Normal 7.6-11.0 [facility] Comment on above: Performed By: #### L 501.2450, L500.4050, L100.0100 #### [facility] [address] [place], [address] Chloride [Moles/Vol] 102 mmol/L Normal 98-[address] [facility] Comment on above: Performed By: #### L 501.2450, L500.4050, L100.0100 #### [facility] [address] [place], [address] CO2 [Moles/Vol] 21.4 mmol/L Normal 21.0-32.0 [facility] Comment on above: Performed By: #### L 501.2450, L500.4050, L100.0100 #### [facility] [address] [place], [address] Creatinine [Mass/Vol] 0.57 mg/dL Low 0.70-1.20 [facility] Comment on above: Performed By: #### L 501.2450, L500.4050, L100.0100 #### [facility] [address] [place], [address] ECRCL 61.66 ml/min Normal 50-250 [facility] Comment on above: Performed By: #### L 501.2450, L500.4050, L100.0100 #### [facility] [address] [place], [address] GAP 9 Normal 5-15 [facility] Comment on above: Performed By: #### L 501.2450, L500.4050, L100.0100 #### [facility] [address] [place], [address] GFR/1.73 sq M.predicted among non-blacks MDRD (S/P/Bld) [Vol rate/Area] 91 mL/min/{1.73_m2} Normal >60 [facility] Comment on above: Result Comment: mL/m in/1.73m2 CKD-EPI Creatinine Equation (2020) Performed By: #### L 501.2450, L500.4050, L100.0100 #### [facility] [address] [place], [address] Glucose [Mass/Vol] 94 mg/dL Normal 70-99 [facility] Comment on above: Performed By: #### L 501.2450, L500.4050, L100.0100 #### [facility] [address] [place], [address] Potassium [Moles/Vol] 4.7 mmol/L Normal 3.3-5.1 [facility] Comment on above: Performed By: #### L 501.2450, L500.4050, L100.0100 #### [facility] [address] [place], [address] Sodium [Moles/Vol] 133 mmol/L Normal 133-145 [facility] Comment on above: Performed By: #### L 501.2450, L500.4050, L100.0100 #### [facility] [address] [place], [address] Urea nitrogen [Mass/Vol] 19 mg/dL Normal 4-19 [facility] Comment on above: Performed By: #### L 501.2450, L500.4050, L100.0100 #### [facility] [address] [place], [address] CBC W/Diff, Automatedon - Absolute Lymph 1.15 X10 3/uL Normal 0.83-4.51 [facility] Comment on above: Performed By: #### L 501.2450, L500.4050, L100.0100 #### [facility] [address] [place], [address] Absolute Neut 4.5 X10 3/uL Normal 2.0-7.7 [facility] Comment on above: Performed By: #### L 501.2450, L500.4050, L100.0100 #### [facility] [address] [place], [address] Basophils/100 WBC (Bld) 0.4 % Normal 0-[address] [facility] Comment on above: Performed By: #### L 501.2450, L500.4050, L100.0100 #### [facility] [address] [place], [address] Eosinophils/100 WBC (Bld) 6.7 % High 0-5 [facility] Comment on above: Performed By: #### L 501.2450, L500.4050, L100.0100 #### [facility] [address] [place], [address] Erythrocyte distribution width (RBC) [Ratio] 14.4 % Normal 11.6-14.6 [facility] Comment on above: Performed By: #### L 501.2450, L500.4050, L100.0100 #### [facility] [address] [place], [address] Hematocrit (Bld) [Volume fraction] 23.6 % Low 37-47 [facility] Comment on above: Performed By: #### L 501.2450, L500.4050, L100.0100 #### [facility] [address] [place], [address] Hemoglobin (Bld) [Mass/Vol] 7.7 g/dL Low 12.0-15.0 [facility] Comment on above: Performed By: #### L 501.2450, L500.4050, L100.0100 #### [facility] [address] [place], [address] IG% 0.400 Normal 0.0-0.9 [facility] Comment on above: Result Comment: IG% - Immature Granulocytes (promyelocytes, myelocytes and metamyelocytes) > 1% indicates that a LEFT SHIFT is Present. Performed By: #### L 501.2450, L500.4050, L100.0100 #### [facility] [address] [place], [address] Lymphocytes/100 WBC (Bld) 16.4 % Low 19-41 [facility] Comment on above: Performed By: #### L 501.2450, L500.4050, L100.0100 #### [facility] [address] [place], [address] MCH (RBC) [Entitic mass] 30.8 pg Normal 27.0-32.0 [facility] Comment on above: Performed By: #### L 501.2450, L500.4050, L100.0100 #### [facility] [address] [place], [address] MCHC (RBC) [Mass/Vol] 32.6 g/dL Normal 32-36 [facility] Comment on above: Performed By: #### L 501.2450, L500.4050, L100.0100 #### [facility] [address] [place], [address] MCV (RBC) [Entitic vol] 94.4 fL Normal 81-[address] [facility] Comment on above: Performed By: #### L 501.2450, L500.4050, L100.0100 #### [facility] [address] [place], [address] Monocytes/100 WBC (Bld) 11.7 % High 0-[address] [facility] Comment on above: Performed By: #### L 501.2450, L500.4050, L100.0100 #### [facility] [address] [place], [address] Neutrophils/100 WBC (Bld) 64.4 % Normal 47-70 [facility] Comment on above: Performed By: #### L 501.2450, L500.4050, L100.0100 #### [facility] [address] [place], [address] Nucleated RBC (Bld) [#/Vol] 0 10*3/uL Normal 0-5 [facility] Comment on above: Performed By: #### L 501.2450, L500.4050, L100.0100 #### [facility] [address] [place], [address] Platelet mean volume (Bld) [Entitic vol] 9.2 fL Normal 6.2-12.0 [facility] Comment on above: Performed By: #### L 501.2450, L500.4050, L100.0100 #### [facility] [address] [place], [address] Platelets (Bld) [#/Vol] 212 10*3/uL Normal 150-450 [facility] Comment on above: Performed By: #### L 501.2450, L500.4050, L100.0100 #### [facility] [address] [place], [address] RBC (Bld) [#/Vol] 2.50 10*6/uL Low 4.2-5.4 [facility] Comment on above: Performed By: #### L 501.2450, L500.4050, L100.0100 #### [facility] [address] [place], [address] RDW SD 48.6 fl High 35.1-43.9 [facility] Comment on above: Performed By: #### L 501.2450, L500.4050, L100.0100 #### [facility] [address] [place], [address] WBC (Bld) [#/Vol] 7.0 10*3/uL Normal 4.4-11.0 [facility] Comment on above: Performed By: #### L 501.2450, L500.4050, L100.0100 #### [facility] [address] [place], [address] Basic Metabolic Profile (BMP )on 05-13-2025 BUN/CRE 39.9 RATIO High 10-20 [facility] Comment on above: Performed By: #### L 503.6005 #### [facility] [address] [place], [address] Calcium [Mass/Vol] 8.2 mg/dL Normal 7.6-11.0 [facility] Comment on above: Performed By: #### L 503.6005 #### [facility] [address] [place], [address] Chloride [Moles/Vol] 103 mmol/L Normal 98-[address] [facility] Comment on above: Performed By: #### L 503.6005 #### [facility] [address] [place], [address] CO2 [Moles/Vol] 18.7 mmol/L Low 21.0-32.0 [facility] Comment on above: Performed By: #### L 503.6005 #### [facility] [address] [place], [address] Creatinine [Mass/Vol] 0.66 mg/dL Low 0.70-1.20 [facility] Comment on above: Performed By: #### L 503.6005 #### [facility] [address] [place], [address] ECRCL 61.66 ml/min Normal 50-250 [facility] Comment on above: Performed By: #### L 503.6005 #### [facility] [address] [place], [address] GAP 10 Normal 5-15 [facility] Comment on above: Performed By: #### L 503.6005 #### [facility] [address] [place], [address] GFR/1.73 sq M.predicted among non-blacks MDRD (S/P/Bld) [Vol rate/Area] 88 mL/min/{1.73_m2} Normal >60 [facility] Comment on above: Result Comment: mL/m in/1.73m2 CKD-EPI Creatinine Equation (2020) Performed By: #### L 503.6005 #### [facility] [address] [place], [address] Glucose [Mass/Vol] 98 mg/dL Normal 70-99 [facility] Comment on above: Performed By: #### L 503.6005 #### [facility] [address] [place], [address] Potassium [Moles/Vol] 4.0 mmol/L Normal 3.3-5.1 [facility] Comment on above: Performed By: #### L 503.6005 #### [facility] [address] [place], [address] Sodium [Moles/Vol] 132 mmol/L Low 133-145 [facility] Comment on above: Performed By: #### L 503.6005 #### [facility] [address] [place], [address] Urea nitrogen [Mass/Vol] 26 mg/dL High 4-19 [facility] Comment on above: Performed By: #### L 503.6005 #### [facility] [address] [place], [address] CBC W/Diff, Automatedon 04-26 Absolute Lymph 1.66 X10 3/uL Normal 0.83-4.51 [facility] Comment on above: Performed By: #### L 501.2450, L500.4050, L100.0100 #### [facility] [address] [place], [address] Absolute Neut 4.4 X10 3/uL Normal 2.0-7.7 [facility] Comment on above: Performed By: #### L 501.2450, L500.4050, L100.0100 #### [facility] [address] [place], [address] Basophils/100 WBC (Bld) 0.4 % Normal 0-[address] [facility] Comment on above: Performed By: #### L 501.2450, L500.4050, L100.0100 #### [facility] [address] [place], [address] Eosinophils/100 WBC (Bld) 5.6 % High 0-5 [facility] Comment on above: Performed By: #### L 501.2450, L500.4050, L100.0100 #### [facility] [address] [place], [address] Erythrocyte distribution width (RBC) [Ratio] 14.2 % Normal 11.6-14.6 [facility] Comment on above: Performed By: #### L 501.2450, L500.4050, L100.0100 #### [facility] [address] [place], [address] Hematocrit (Bld) [Volume fraction] 22.7 % Low 37-47 [facility] Comment on above: Performed By: #### L 501.2450, L500.4050, L100.0100 #### [facility] [address] [place], [address] Hemoglobin (Bld) [Mass/Vol] 7.6 g/dL Low 12.0-15.0 [facility] Comment on above: Performed By: #### L 501.2450, L500.4050, L100.0100 #### [facility] [address] [place], [address] IG% 0.300 Normal 0.0-0.9 [facility] Comment on above: Result Comment: IG% - Immature Granulocytes (promyelocytes, myelocytes and metamyelocytes) > 1% indicates that a LEFT SHIFT is Present. Performed By: #### L 501.2450, L500.4050, L100.0100 #### [facility] [address] [place], [address] Lymphocytes/100 WBC (Bld) 22.9 % Normal 19-41 [facility] Comment on above: Performed By: #### L 501.2450, L500.4050, L100.0100 #### [facility] [address] [place], [address] MCH (RBC) [Entitic mass] 30.8 pg Normal 27.0-32.0 [facility] Comment on above: Performed By: #### L 501.2450, L500.4050, L100.0100 #### [facility] [address] [place], [address] MCHC (RBC) [Mass/Vol] 33.5 g/dL Normal 32-36 [facility] Comment on above: Performed By: #### L 501.2450, L500.4050, L100.0100 #### [facility] [address] [place], [address] MCV (RBC) [Entitic vol] 91.9 fL Normal 81-99 [facility] Comment on above: Performed By: #### L 501.2450, L500.4050, L100.0100 #### [facility] [address] [place], [address] Monocytes/100 WBC (Bld) 10.2 % High 0-10 [facility] Comment on above: Performed By: #### L 501.2450, L500.4050, L100.0100 #### [facility] [address] [place], [address] Neutrophils/100 WBC (Bld) 60.6 % Normal 47-70 [facility] Comment on above: Performed By: #### L 501.2450, L500.4050, L100.0100 #### [facility] [address] [place], [address] Nucleated RBC (Bld) [#/Vol] 0 10*3/uL Normal 0-5 [facility] Comment on above: Performed By: #### L 501.2450, L500.4050, L100.0100 #### [facility] [address] [place], [address] Platelet mean volume (Bld) [Entitic vol] 9.2 fL Normal 6.2-12.0 [facility] Comment on above: Performed By: #### L 501.2450, L500.4050, L100.0100 #### [facility] [address] [place], [address] Platelets (Bld) [#/Vol] 199 10*3/uL Normal 150-450 [facility] Comment on above: Performed By: #### L 501.2450, L500.4050, L100.0100 #### [facility] [address] [place], [address] RBC (Bld) [#/Vol] 2.47 10*6/uL Low 4.2-5.4 [facility] Comment on above: Performed By: #### L 501.2450, L500.4050, L100.0100 #### [facility] [address] [place], [address] RDW SD 47.5 fl High 35.1-43.9 [facility] Comment on above: Performed By: #### L 501.2450, L500.4050, L100.0100 #### [facility] [address] [place], [address] WBC (Bld) [#/Vol] 7.3 10*3/uL Normal 4.4-11.0 [facility] Comment on above: Performed By: #### L 501.2450, L500.4050, L100.0100 #### [facility] [address] [place], [address] Magnesiumon 05-13-2025 Magnesium [Mass/Vol] 2.0 mg/dL Normal 1.5-2.[address] [facility] Comment on above: Performed By: #### L 503.6005 #### [facility] [address] [place], [address] Phosphoruson 05-13-2025 Phosphate [Mass/Vol] 2.6 mg/dL Low 2.7-4.[address] [facility] Comment on above: Performed By: #### L 503.6005 #### [facility] [address] [place], [address] Stool Occult Blood iFOBon STOB Positive Normal [facility] Comment on above: Performed By: #### L 503.6005 #### [facility] [address] [place], [address] Stool gastrointestinal hemog lobin detection by immunologic methodOrdered By: Ifeanyi Paula on 05-13-2025 Lower GI hemoglobin IA Ql (Stl) Positive Abnormal [facility] Bilirubin, totalOrdered By: Ifeanyi Paula on 05-12-2025 Bilirubin [Mass/Vol] 0.60 mg/dL 0.00-1.[address] [facility] CBC W/Diff, Automatedon 04-26 Absolute Lymph 1.40 X10 3/uL Normal 0.83-4.51 [facility] Comment on above: Performed By: #### L 503.6005 #### [facility] [address] [place], [address] Absolute Neut 6.6 X10 3/uL Normal 2.0-7.7 [facility] Comment on above: Performed By: #### L 503.6005 #### [facility] [address] [place], [address] Basophils/100 WBC (Bld) 0.2 % Normal 0-[address] [facility] Comment on above: Performed By: #### L 503.6005 #### [facility] [address] [place], [address] Eosinophils/100 WBC (Bld) 1.2 % Normal 0-5 [facility] Comment on above: Performed By: #### L 503.6005 #### [facility] [address] [place], [address] Erythrocyte distribution width (RBC) [Ratio] 14.0 % Normal 11.6-14.6 [facility] Comment on above: Performed By: #### L 503.6005 #### [facility] [address] [place], [address] Hematocrit (Bld) [Volume fraction] 23.5 % Low 37-47 [facility] Comment on above: Performed By: #### L 503.6005 #### [facility] [address] [place], [address] Hemoglobin (Bld) [Mass/Vol] 8.1 g/dL Low 12.0-15.0 [facility] Comment on above: Performed By: #### L 503.6005 #### [facility] [address] [place], [address] IG% 0.400 Normal 0.0-0.9 [facility] Comment on above: Result Comment: IG% - Immature Granulocytes (promyelocytes, myelocytes and metamyelocytes) > 1% indicates that a LEFT SHIFT is Present. Performed By: #### L 503.6005 #### [facility] [address] [place], [address] Lymphocytes/100 WBC (Bld) 15.4 % Low 19-41 [facility] Comment on above: Performed By: #### L 503.6005 #### [facility] [address] [place], [address] MCH (RBC) [Entitic mass] 30.9 pg Normal 27.0-32.0 [facility] Comment on above: Performed By: #### L 503.6005 #### [facility] [address] [place], [address] MCHC (RBC) [Mass/Vol] 34.5 g/dL Normal 32-36 [facility] Comment on above: Performed By: #### L 503.6005 #### [facility] [address] [place], [address] MCV (RBC) [Entitic vol] 89.7 fL Normal 81-[address] [facility] Comment on above: Performed By: #### L 503.6005 #### [facility] [address] [place], [address] Monocytes/100 WBC (Bld) 10.1 % High 0-10 [facility] Comment on above: Performed By: #### L 503.6005 #### [facility] [address] [place], [address] Neutrophils/100 WBC (Bld) 72.7 % High 47-70 [facility] Comment on above: Performed By: #### L 503.6005 #### [facility] [address] [place], [address] Nucleated RBC (Bld) [#/Vol] 0 10*3/uL Normal 0-5 [facility] Comment on above: Performed By: #### L 503.6005 #### [facility] [address] [place], [address] Platelet mean volume (Bld) [Entitic vol] 9.4 fL Normal 6.2-12.0 [facility] Comment on above: Performed By: #### L 503.6005 #### [facility] [address] [place], [address] Platelets (Bld) [#/Vol] 210 10*3/uL Normal 150-450 [facility] Comment on above: Performed By: #### L 503.6005 #### [facility] [address] [place], [address] RBC (Bld) [#/Vol] 2.62 10*6/uL Low 4.2-5.4 [facility] Comment on above: Performed By: #### L 503.6005 #### [facility] [address] [place], [address] RDW SD 45.3 fl High 35.1-43.9 [facility] Comment on above: Performed By: #### L 503.6005 #### [facility] [address] [place], [address] WBC (Bld) [#/Vol] 9.1 10*3/uL Normal 4.4-11.0 [facility] Comment on above: Performed By: #### L 503.6005 #### [facility] [address] [place], [address] Calculated very low density lipoprotein (VLDL) cholesterol measurementOrdered By: Ifeanyi Paula on 05-12-2025 Calculated very low density lipoprotein (VLDL) cholesterol measurement 16 mg/dL 5-40 [facility] Comprehensive Metabolic Prof ilon 05-12-2025 Albumin [Mass/Vol] 3.3 g/dL Low 3.4-4.8 [facility] Comment on above: Performed By: #### L 503.6005 #### [facility] [address] [place], [address] Albumin/Globulin [Mass ratio] 1.4 {ratio} Normal 0.9-2.4 [facility] Comment on above: Performed By: #### L 503.6005 #### [facility] [address] [place], [address] ALK PHOS 71 U/L Normal 35-104 [facility] Comment on above: Performed By: #### L 503.6005 #### [facility] [address] [place], [address] ALT [Catalytic activity/Vol] 30 U/L Normal <=34 [facility] Comment on above: Performed By: #### L 503.6005 #### [facility] [address] [place], [address] AST [Catalytic activity/Vol] 65 U/L High <=31 [facility] Comment on above: Performed By: #### L 503.6005 #### [facility] [address] [place], [address] Bilirubin [Mass/Vol] 0.60 mg/dL Normal 0.00-1.[address] [facility] Comment on above: Performed By: #### L 503.6005 #### [facility] [address] [place], [address] BUN/CRE 50.1 RATIO High 10-20 [facility] Comment on above: Performed By: #### L 503.6005 #### [facility] [address] [place], [address] Calcium [Mass/Vol] 8.4 mg/dL Normal 7.6-11.0 [facility] Comment on above: Performed By: #### L 503.6005 #### [facility] [address] [place], [address] Chloride [Moles/Vol] 101 mmol/L Normal 98-[address] [facility] Comment on above: Performed By: #### L 503.6005 #### [facility] [address] [place], [address] CO2 [Moles/Vol] 19.3 mmol/L Low 21.0-32.0 [facility] Comment on above: Performed By: #### L 503.6005 #### [facility] [address] [place], [address] Creatinine [Mass/Vol] 0.89 mg/dL Normal 0.70-1.20 [facility] Comment on above: Performed By: #### L 503.6005 #### [facility] [address] [place], [address] ECRCL 54.58 ml/min Normal 50-250 [facility] Comment on above: Performed By: #### L 503.6005 #### [facility] [address] [place], [address] GAP 11 Normal 5-15 [facility] Comment on above: Performed By: #### L 503.6005 #### [facility] [address] [place], [address] GFR/1.73 sq M.predicted among non-blacks MDRD (S/P/Bld) [Vol rate/Area] 65 mL/min/{1.73_m2} Normal >60 [facility] Comment on above: Result Comment: mL/m in/1.73m2 CKD-EPI Creatinine Equation (2020) Performed By: #### L 503.6005 #### [facility] [address] [place], [address] Globulin (S) [Mass/Vol] 2.4 g/dL Normal 2.2-4.2 [facility] Comment on above: Performed By: #### L 503.6005 #### [facility] [address] [place], [address] Glucose [Mass/Vol] 101 mg/dL High 70-99 [facility] Comment on above: Performed By: #### L 503.6005 #### [facility] [address] [place], [address] Potassium [Moles/Vol] 3.9 mmol/L Normal 3.3-5.1 [facility] Comment on above: Performed By: #### L 503.6005 #### [facility] [address] [place], [address] Sodium [Moles/Vol] 132 mmol/L Low 133-145 [facility] Comment on above: Performed By: #### L 503.6005 #### [facility] [address] [place], [address] T PROT 5.7 g/dL Low 5.9-8.4 [facility] Comment on above: Performed By: #### L 503.6005 #### [facility] [address] [place], [address] Urea nitrogen [Mass/Vol] 45 mg/dL High 4-19 [facility] Comment on above: Performed By: #### L 503.6005 #### [facility] [address] [place], [address] Folates,Serum (Folic Acid)on 05-12-2025 FOLATES,SERUM 32.40 ng/mL Normal 4.60-34.80 [facility] Comment on above: Performed By: #### L 501.2450, L500.4050, L100.0100 #### [facility] [address] [place], [address] LDL calc ser/plasOrdered By: Ifeanyi Paula on 05-12-2025 Cholesterol in LDL [Mass/Vol] 44 mg/dL [facility] Comment on above: Vntzqhzlgu=886-749 m g/dL & Higher Rnnr=239 mg/dL or greater Laboratory - Chemistry and C hemistry - challengeOrdered By: Ifeanyi Paula on 05-12-2025 AST [Catalytic activity/Vol] 65 U/L High <32 [facility] Lactic Acidon 05-12-2025 Lactate [Moles/Vol] 1.3 mmol/L Normal 0.0-2.0 [facility] Comment on above: Order Comment: N Performed By: #### L 503.6005 #### [facility] [address] [place], [address] Lipid Profileon 05-12-2025 CHOL:HDL 2.00 Normal [facility] Comment on above: Performed By: #### L 503.6005 #### [facility] [address] [place], [address] Cholesterol [Mass/Vol] 118 mg/dL Normal <=200 [facility] Comment on above: Result Comment: Chol esterol level, Desirable <200 mg/dL Borderline high cholesterol 200-239 mg/dL High cholesterol >=240 mg/dL Recommendations of the NCEP Adult Treatment Panel for the following risk-cutoff thresholds for the [place] population. Performed By: #### L 503.6005 #### [facility] [address] [place], [address] Cholesterol in HDL [Mass/Vol] 59 mg/dL Normal [facility] Comment on above: Result Comment: Veronica onal Cholesterol Education Program (NCEP) guidelines: <40 mg/dL: Low HDL-cholesterol (major risk factor for CHD) >= 60 mg/dL: High HDL-cholesterol (negative risk factor for CHD) HDL-cholesterol is affected by a number of factors, e.g. smoking, exercise, hormones, sex and age. Performed By: #### L 503.6005 #### [facility] [address] [place], [address] Cholesterol in LDL [Mass/Vol] 44 mg/dL Normal [facility] Comment on above: Result Comment: Bord mprznn=935-744 mg/dL Higher Mwvp=318 mg/dL or greater Performed By: #### L 503.6005 #### [facility] [address] [place], [address] Cholesterol in VLDL [Mass/Vol] 16 mg/dL Normal 5-40 [facility] Comment on above: Performed By: #### L 503.6005 #### [facility] [address] [place], [address] Triglyceride [Mass/Vol] 78 mg/dL Normal [facility] Comment on above: Result Comment: The drugs N-Acetylcysteine and Metamizole may falsely depress this assay. Normal range: <150 mg/dL Borderline High: 150-199 mg/dL High: 200-499 mg/dL Very High: >500 mg/dL Performed By: #### L 503.6005 #### [facility] [address] [place], [address] Osmolality, Serumon 05-12-20 25 OSMOLALITY,SER 293 mOsm/KG Normal 280-301 [facility] Comment on above: Performed By: #### L 501.2450, L500.4050, L100.0100 #### [facility] [address] [place], [place], [address] Phosphoruson 05-12-2025 Phosphate [Mass/Vol] 2.9 mg/dL Normal 2.7-4.[address] [facility] Comment on above: Performed By: #### L 503.6005 #### [facility] [address] [place], [place], [address] Screening total cholesterol/ high density lipoprotein (HDL) cholesterol ratioOrdered By: Ifeanyi Paula on 05-12-2025 Cholesterol.total/Tiffanie sterol in HDL [Mass ratio] 2.00 {ratio} [facility] Serum globulin measurementOr dered By: Ifeanyi Paula on 05-12-2025 Globulin (S) [Mass/Vol] 2.4 g/dL 2.2-4.[address] [facility] Serum or plasma alanine garcia otransferase (ALT) measurementOrdered By: Ifeanyi Paula on 05-12-2025 ALT [Catalytic activity/Vol] 30 U/L <35 [facility] Serum or plasma albumin cong urement (mass/volume)Ordered By: Ifeanyi Paula on 05-12-2025 Albumin [Mass/Vol] 3.3 g/dL Low 3.4-4.8 [facility] Serum or plasma albumin/glob ulin mass ratioOrdered By: Ifeanyi Paula on 05-12-2025 Albumin/Globulin [Mass ratio] 1.4 {ratio} 0.9-2.4 [facility] Serum or plasma alkaline sonido sphatase measurementOrdered By: Ifeanyi Paula on 05-12-2025 ALP [Catalytic activity/Vol] 71 U/L 35-104 [facility] Serum or plasma cholesterol in HDL measurement (mass/volume)Ordered By: Ifeanyi Paula on 05-12-2025 Cholesterol in HDL [Mass/Vol] 59 mg/dL >40 [facility] Comment on above: National Cholesterol Education Program (NCEP) guidelines:<40 mg/dL: Low HDL-cholesterol (major risk factor for CHD)>= 60 mg/dL: High HDL-cholesterol (negative risk factor for CHD)HDL-cholesterol is affected by a number of factors, e.g. smoking, exercise, hormones, sex and age. Serum or plasma cholesterol measurement (mass/volume)Ordered By: Ifeanyi Paula on 05-12-2025 Cholesterol [Mass/Vol] 118 mg/dL <201 [facility] Comment on above: Cholesterol level, D esirable <200 mg/dLBorderline high cholesterol 200-239 mg/dLHigh cholesterol >=240 mg/dLRecommendations of the NCEP Adult Treatment Panel for the following risk-cutoff thresholds for the [place] population. Total proteinOrdered By: Romeo Paula on 05-12-2025 Protein [Mass/Vol] 5.7 g/dL Low 5.9-8.4 [facility] Triglycerides measurementOrd ered By: Ifeanyi Paula on 05-12-2025 Triglyceride [Mass/Vol] 78 mg/dL <[address] [facility] Comment on above: The drugs N-Acetylcy steine and Metamizole may falsely depress this assay. Normal range: <150 mg/dLBorderline High: 150-199 mg/dLHigh: 200-499 mg/dLVery High: >500 mg/dL Abdomen/Pelvis W IV Cont ONL Yon 05-11-2025 Abdomen/Pelvis W IV Cont ONLY [facility] Imaging Services [address] [place], [place] [address] Abdomen/Pelvis W IV Cont ONLY MR#: [id number] Acct: [id number] Name: KATH ARRIAGA Rep #: [id number] : 1945 F 79 From: Evert Lacy MD PCP: Dr. Deb Yusuf MD Status: ADM IN Study: Abdomen/Pelvis W IV Cont ONLY Date of Exam: Exam# [id number] Ordering Dr: Ifeanyi Shaikh DO PROCEDURE: ABDOMEN/PELVIS W IV CONT ONLY 05/11/2025 REASON FOR EXAM: HIGHLY ELEVATED BUN/CREAT RATIO. ? BLEED. TECHNIQUE: ABDOMEN/PELVIS W IV CONT ONLY Coronal and Sagittal reconstruction series were provided. CONTRAST: Isovue 370 VOLUME: 94 mL One or more dose reduction techniques were used (e.g., Automated exposure control, adjustment of the mA and/or kV according to patient size, use of iterative reconstruction technique. RADIATION DOSE SUMMARY: CTDlvol: 33 mGy DLP: 1155 mGycm COMPARISON: 11/08/2020 FINDINGS: Under aerated lung bases. Normal heart size. Diffuse hepatic steatosis. Subcentimeter liver hypodensity favoring benign etiology. Status post cholecystectomy. Unremarkable pancreas, spleen, adrenal glands, kidneys. No hydronephrosis. Normal bladder. Unremarkable uterus and ovaries. No retroperitoneal or pelvic adenopathy. No free air. Nonobstructed bowel. No signs of appendicitis. Diverticulosis. No acute large bowel findings. Status post bilateral THR. Lumbar spine scoliosis and degeneration. Possible cellulitis, ventral abdominal wall, series 2, image 55. CT/Abdomen/Pelvis W IV Cont ONLY IMPRESSION: Possible ventral abdominal wall cellulitis. Advise correlation. Reading Location: [place] [address] CC: Dr. Ifeanyi Shaikh DO; Dr. Deb Yusuf MD Assistant Professor Surgical Technology: Signed Normal [facility] Absolute lymphocyte countOrd ered By: Virgil Corrales on 05-11-2025 Lymphocytes Auto (Unsp spec) [#/Vol] 0.81 10*3/uL Low 0.83-4.51 [facility] Absolute neutrophil countOrd ered By: Virgil Corrales on 05-11-2025 Neutrophils (Bld) [#/Vol] 9.6 10*3/uL High 2.0-7.7 [facility] Amorphous sediment detection in urine sediment by light microscopyOrdered By: Virgil Corrales on 05-11-2025 Amorphous sediment LM Ql (Urine sed) 1+ URATE [facility] Anion gap in Serum or Plasma Ordered By: Virgil Corrales on 05-11-2025 Anion gap [Moles/Vol] 17 mmol/L High 5-15 [facility] Automated lymphocyte count a s percentage of total leukocytesOrdered By: Virgil Corrales on 05-11-2025 Lymphocytes/100 WBC Auto (Unsp spec) 7.0 % Low 19-41 [facility] BUN/creatinine ratioOrdered By: Virgil Corrales on 05-11-2025 Urea nitrogen/Creatinine [Mass ratio] 48.1 mg/mg High 10-20 [facility] Basophil percentageOrdered B y: Virgil Corrales on 05-11-2025 Basophils/100 WBC (Bld) 0.3 % 0-[address] [facility] Bilirubin Test strip Ql (U)O rdered By: Virgil Corrales on 05-11-2025 Bilirubin Ql (U) Negative Negative [facility] Bilirubin, totalOrdered By: Virgil Corrales on 05-11-2025 Bilirubin [Mass/Vol] 0.52 mg/dL 0.00-1.[address] [facility] Blood cultureOrdered By: Jurgen Corrales on 05-11-2025 Bacteria identified Cx Nom (Bld) No growth in 5 days. [facility] Bacteria identified Cx Nom (Bld) No growth in 5 days. [facility] Brain/Head without Contrasto n 05-11-2025 Brain/Head without Contrast [facility] Imaging Services [address] [place], [place] [address] Brain/Head without Contrast MR#: [id number] Acct: [id number] Name: KATH ARRIAGA Rep #: [id number] : 1945 F 79 From: Alec Godwin MD PCP: Dr. Deb Yusuf MD Status: REG ER Study: Brain/Head without Contrast Date of Exam: 04/26 04/20 Exam# [id number] Ordering Dr: Virgil Corrales DO PROCEDURE: BRAIN/HEAD [...] right basal ganglia. Atherosclerotic vascular calcifications. Absent ak chin ocular lenses. Intact skull base and calvarium. Clear paranasal sinuses and mastoid air cells. CT/Brain/Head without Contrast IMPRESSION: 1. No evidence of acute intracranial pathology. 2. Moderate-advanced volume loss and chronic small-vessel ischemic changes. Reading Location: [id number] CC: Dr. Deb Yusuf MD; Dr. Virgil Corrales DO Assistant Professor Surgical Technology: Signed Normal [facility] CBC W/Diff, Automatedon 04-26 Absolute Lymph 0.81 X10 3/uL Low 0.83-4.51 [facility] Comment on above: Performed By: #### L 501.2450, L500.4050, L100.0100 #### [facility] [address] [place], [address] Absolute Neut 9.6 X10 3/uL High 2.0-7.7 [facility] Comment on above: Performed By: #### L 501.2450, L500.4050, L100.0100 #### [facility] [address] [place], [address] Basophils/100 WBC (Bld) 0.3 % Normal 0-[address] [facility] Comment on above: Performed By: #### L 501.2450, L500.4050, L100.0100 #### [facility] [address] [place], [address] Eosinophils/100 WBC (Bld) 0.3 % Normal 0-5 [facility] Comment on above: Performed By: #### L 501.2450, L500.4050, L100.0100 #### [facility] [address] [place], [address] Erythrocyte distribution width (RBC) [Ratio] 14.0 % Normal 11.6-14.6 [facility] Comment on above: Performed By: #### L 501.2450, L500.4050, L100.0100 #### [facility] [address] [place], [address] Hematocrit (Bld) [Volume fraction] 30.3 % Low 37-47 [facility] Comment on above: Performed By: #### L 501.2450, L500.4050, L100.0100 #### [facility] [address] [place], [address] Hemoglobin (Bld) [Mass/Vol] 9.9 g/dL Low 12.0-15.0 [facility] Comment on above: Performed By: #### L 501.2450, L500.4050, L100.0100 #### [facility] [address] [place], [address] IG% 0.300 Normal 0.0-0.9 [facility] Comment on above: Result Comment: IG% - Immature Granulocytes (promyelocytes, myelocytes and metamyelocytes) > 1% indicates that a LEFT SHIFT is Present. Performed By: #### L 501.2450, L500.4050, L100.0100 #### [facility] [address] [place], [address] Lymphocytes/100 WBC (Bld) 7.0 % Low 19-41 [facility] Comment on above: Performed By: #### L 501.2450, L500.4050, L100.0100 #### [facility] [address] [place], [address] MCH (RBC) [Entitic mass] 30.7 pg Normal 27.0-32.0 [facility] Comment on above: Performed By: #### L 501.2450, L500.4050, L100.0100 #### [facility] [address] [place], [address] MCHC (RBC) [Mass/Vol] 32.7 g/dL Normal 32-36 [facility] Comment on above: Performed By: #### L 501.2450, L500.4050, L100.0100 #### [facility] [address] [place], [address] MCV (RBC) [Entitic vol] 94.1 fL Normal 81-99 [facility] Comment on above: Performed By: #### L 501.2450, L500.4050, L100.0100 #### [facility] [address] [place], [address] Monocytes/100 WBC (Bld) 8.4 % Normal 0-10 [facility] Comment on above: Performed By: #### L 501.2450, L500.4050, L100.0100 #### [facility] [address] [place], [address] Neutrophils/100 WBC (Bld) 83.7 % High 47-70 [facility] Comment on above: Performed By: #### L 501.2450, L500.4050, L100.0100 #### [facility] [address] [place], [address] Nucleated RBC (Bld) [#/Vol] 0 10*3/uL Normal 0-5 [facility] Comment on above: Performed By: #### L 501.2450, L500.4050, L100.0100 #### [facility] [address] [place], [address] Platelet mean volume (Bld) [Entitic vol] 9.4 fL Normal 6.2-12.0 [facility] Comment on above: Performed By: #### L 501.2450, L500.4050, L100.0100 #### [facility] [address] [place], [address] Platelets (Bld) [#/Vol] 233 10*3/uL Normal 150-450 [facility] Comment on above: Performed By: #### L 501.2450, L500.4050, L100.0100 #### [facility] [address] [place], [address] RBC (Bld) [#/Vol] 3.22 10*6/uL Low 4.2-5.4 [facility] Comment on above: Performed By: #### L 501.2450, L500.4050, L100.0100 #### [facility] [address] [place], [address] RDW SD 48.0 fl High 35.1-43.9 [facility] Comment on above: Performed By: #### L 501.2450, L500.4050, L100.0100 #### [facility] [address] [place], [address] WBC (Bld) [#/Vol] 11.5 10*3/uL High 4.4-11.0 [facility] Comment on above: Performed By: #### L 501.2450, L500.4050, L100.0100 #### [facility] [address] [place], [address] CO2 (BldV) [Moles/Vol]Ordere d By: Virgil Corrales on 05-11-2025 CO2 [Moles/Vol] 21 mmol/L Low 23-33 [facility] Carbon dioxide, total [Moles /volume] in Central venous bloodOrdered By: Virgil Corrales on 05-11-2025 CO2 [Moles/Vol] 15.6 mmol/L Low 21.0-32.0 [facility] Chloride assayOrdered By: Fredrick Corrales on 05-11-2025 Chloride [Moles/Vol] 96 mmol/L Low 98-[address] [facility] Comprehensive Metabolic Prof ilon 05-11-2025 Albumin [Mass/Vol] 3.9 g/dL Normal 3.4-4.8 [facility] Comment on above: Performed By: #### L 501.2450, L500.4050, L100.0100 #### [facility] [address] [place], [address] Albumin/Globulin [Mass ratio] 1.3 {ratio} Normal 0.9-2.4 [facility] Comment on above: Performed By: #### L 501.2450, L500.4050, L100.0100 #### [facility] [address] [place], [address] ALK PHOS 86 U/L Normal 35-104 [facility] Comment on above: Performed By: #### L 501.2450, L500.4050, L100.0100 #### [facility] [address] [place], [address] ALT [Catalytic activity/Vol] 32 U/L Normal <=34 [facility] Comment on above: Performed By: #### L 501.2450, L500.4050, L100.0100 #### [facility] [address] [place], [address] AST [Catalytic activity/Vol] 77 U/L High <=31 [facility] Comment on above: Result Comment: Hemo lysis present, Results??could be affected. ?? Performed By: #### L 501.2450, L500.4050, L100.0100 #### [facility] [address] [place], [address] Bilirubin [Mass/Vol] 0.52 mg/dL Normal 0.00-1.[address] [facility] Comment on above: Performed By: #### L 501.2450, L500.4050, L100.0100 #### [facility] [address] [place], [address] BUN/CRE 48.1 RATIO High 10-20 [facility] Comment on above: Performed By: #### L 501.2450, L500.4050, L100.0100 #### [facility] [address] [place], [address] Calcium [Mass/Vol] 9.3 mg/dL Normal 7.6-11.0 [facility] Comment on above: Performed By: #### L 501.2450, L500.4050, L100.0100 #### [facility] [address] [place], [address] Chloride [Moles/Vol] 96 mmol/L Low 98-[address] [facility] Comment on above: Performed By: #### L 501.2450, L500.4050, L100.0100 #### [facility] [address] [place], [address] CO2 [Moles/Vol] 15.6 mmol/L Low 21.0-32.0 [facility] Comment on above: Performed By: #### L 501.2450, L500.4050, L100.0100 #### [facility] [address] [place], [address] Creatinine [Mass/Vol] 1.22 mg/dL High 0.70-1.20 [facility] Comment on above: Performed By: #### L 501.2450, L500.4050, L100.0100 #### [facility] [address] [place], [address] ECRCL 40.78 ml/min Low 50-250 [facility] Comment on above: Performed By: #### L 501.2450, L500.4050, L100.0100 #### [facility] [address] [place], [address] GAP 17 High 5-15 [facility] Comment on above: Performed By: #### L 501.2450, L500.4050, L100.0100 #### [facility] [address] [place], [address] GFR/1.73 sq M.predicted among non-blacks MDRD (S/P/Bld) [Vol rate/Area] 45 mL/min/{1.73_m2} Low >60 [facility] Comment on above: Result Comment: mL/m in/1.73m2 CKD-EPI Creatinine Equation (2020) Performed By: #### L 501.2450, L500.4050, L100.0100 #### [facility] [address] [place], [address] Globulin (S) [Mass/Vol] 3.1 g/dL Normal 2.2-4.[address] [facility] Comment on above: Performed By: #### L 501.2450, L500.4050, L100.0100 #### [facility] [address] [place], [address] Glucose [Mass/Vol] 124 mg/dL High 70-99 [facility] Comment on above: Performed By: #### L 501.2450, L500.4050, L100.0100 #### [facility] [address] [place], [address] Potassium [Moles/Vol] 3.9 mmol/L Normal 3.3-5.1 [facility] Comment on above: Result Comment: Hemo lysis present, Results??could be affected. ?? Performed By: #### L 501.2450, L500.4050, L100.0100 #### [facility] [address] [place], [address] Sodium [Moles/Vol] 129 mmol/L Low 133-145 [facility] Comment on above: Performed By: #### L 501.2450, L500.4050, L100.0100 #### [facility] [address] [place], [address] T PROT 6.9 g/dL Normal 5.9-8.4 [facility] Comment on above: Performed By: #### L 501.2450, L500.4050, L100.0100 #### [facility] [address] [place], [address] Urea nitrogen [Mass/Vol] 59 mg/dL High 4-19 [facility] Comment on above: Performed By: #### L 501.2450, L500.4050, L100.0100 #### [facility] [address] [place], [address] Emergency Department Summary on 05-11-2025 Emergency Department Summary [facility] Medical Records Department [address] [place] [address] Emergency Department Summary 05/11/25 MR#: [id number] Acct: [id number] Name: KATH ARRIAGA Rep #: [id number] : 1945 79 From: Virgil Corrales DO PCP: Dr. Deb Yusuf MD Status:ADM IN Location: [address] History of Present Illness Chief Complaint: Weakness [facility] Medical History Atherosclerosis of coronary artery of ak chin heart without angina pectoris Obstructive sleep apnea Abnormal nuclear stress test Home Medications ???Medication ???Instructions ???Recorded ???Last Taken ???Type levothyroxine 75 mcg tablet 75 mcg PO DAILY thyroid 12/23/13 0 11/08/20 History losartan 50 mg tablet 50 mg PO DAILY bp 03/15/19 1 History diphenhydramine HCl 25 mg capsule 25 mg PO QDAY PRN allergies 07/1211/07/20 History (Benadryl) duloxetine 60 mg capsule,delayed 60 mg PO DAILY depression 07/13/19 11/08/20 History release acetaminophen 500 mg tablet 1,000 mg PO Q8H PRN Pain 1-10 Or 1 11/07/20 History Fever aspirin 81 mg chewable tablet 81 mg PO DAILY DVT Prophylaxis 11/08/20 History calcium 500 mg [...] 1-10 0 11/08/20 11/08/20 History Or Fever lbidiozo-fifo-hink 8 mg-folic 400 1 tab PO DAILY SUPPLEMENT 1 11/08/20 History mcg-K 50 mcg-lutein 300 mcg tablet rosuvastatin 10 mg tablet 10 mg PO DAILY cholesterol #90 tab s 05/06/24 Unknown Rx hydrocodone-acetamin ophen 5-325mg 1 tab PO Q6H PRN PRN Pain 3 days 05/08/25 Unknown Rx 5mg-325mg #10 TABLETS cyanocobalamin (vitamin B-12) 3,000 mcg PO DAILY 05/11/25 Unknow n History 1,000 mcg tablet,extended release (Vitamin B-12 ER) gabapentin 100 mg capsule 100 mg PO BID 05/11/25 Unknown His tory Allergy/AdvReac Type Severity Reaction Status Date / [...] Pulse Ox 99 100 Oxygen Delivery Method MDM MDM MDM Narrative Medical decision making narrative: HISTORY OF PRESENT ILLNESS: Chief complaint: weakness 79 F history of colitis, exacerbation, hyperlipidemia, CAD, hyponatremia, hypothyroidism, here with diffuse weakness, unable to care for self. Per patient she has been having more difficulty driving since breaking her dom (more content not included)... Normal [facility] Eosinophil percentageOrdered By: Virgil Corrales on 05-11-2025 Eosinophils/100 WBC (Bld) 0.3 % 0-5 [facility] Erythrocyte distribution wid th ratioOrdered By: Virgil Corrales on 05-11-2025 Erythrocyte distribution width (RBC) [Ratio] 14.0 % 11.6-14.6 [facility] Erythrocyte distribution wid th standard deviationOrdered By: Virgil Corrales on 05-11-2025 Erythrocyte distribution width (RBC) [Ratio] 48.0 fl High 35.1-43.9 [facility] Ferritinon 05-11-2025 Ferritin [Mass/Vol] 135 ng/mL Normal 22-378 [facility] Comment on above: Performed By: #### L 506.0200, L503.6030, L501.5200, L501.7300, L503.6550, L501.9520, L501.9985 #### [facility] [address] [place], [address] Folate [Moles/volume] in Ser um or PlasmaOrdered By: Ifeanyi Paula on 05-11-2025 Folate [Moles/Vol] 32.40 ng/mL 4.60-34.80 [facility] Glomerular filtration rate ( GFR) estimation/1.73 sq m using serum, plasma, or whole bOrdered By: Virgil Corrales on 05-11-2025 GFR/1.73 sq M.predicted among non-blacks MDRD (S/P/Bld) [Vol rate/Area] 45 mL/min/{1.73_m2} Low >60 [facility] Comment on above: mL/min/1.73m2 CKD-EP I Creatinine Equation (2020) H AND P Exam - Hospitaliston 05-11-2025 H&P Exam - Hospitalist [facility] Medical Records Department [address] [place] [address] H P Exam - Hospitalist 05/11/252031 MR#: [id number] Acct: [id number] Name: KATH ARRIAGA Rep #: [id number] : 1945 79 From: Ifeanyi Shaikh DO PCP: Dr. Deb Yusuf MD Status:ADM IN Location: [facility] [id number] HPI - General General Date of Admission: 05/11/25 Date of Service: 05/11/25 Chief Complaint: Generalized Weakness with Inability to Care for Herself at Home. 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 6 hours prn who presents to [facility] ER complaining of generalized weakness with inability to care for self at home. Ms. Arriaga is very ndui-my-hljgxoc but she reports her acute symptoms began almost immediately after breaking her dominant arm causing her to have great difficulty mobilizing at home with a rolling walker she is using as a wheelchair. Her family has noted progressively worsening generalized weakness and they encouraged her to come to the hospital because she can no longer care for herself. They also noted she is incontinent of urine and is eating minimal food but does take a variety of dietary supplements. For her part, the patient is reluctantly agreeable to admission and possible ECF placement though she does not like it. There was no reported fever, chills, nausea, vomiting, abdominal pain, diarrhea, constipation, chest pain, shortness of breath, palpitations, heart racing, dysuria, hematuria, headache or rash. In the ER she was noted to have a highly elevated BUN of 59 mg/dL with a normal serum creatinine of 1.22 mg/dL suggestive of possible occult upper GI bleed and low hemoglobin of 9.9 g/dL present on admission with further laboratory evidence of Leukocytosis of 11.5K along with Lactic Acidosis of 3.2 mmol/L both present on admission in addition to mild Hyponatremia of 129 mmol/L in the setting of previously known SIADH with an elevated anion gap of 17 and a low carbon dioxide level of 15.6 mmol/L all culminating to cause Generalized Weakness with patient unable to care for self at home. She was then admitted to the general medical floor with telemetric monitoring for status expected to extend beyond 2 midnights. [facility] Medical History Atherosclerosis of coronary artery of ak chin heart without angina pectoris Obstructive sleep apnea Abnormal nuclear stress test Home Medications ???Medication ???Instructions ???Recorded ???Last Taken ???Type levothyroxine 75 mcg tablet 75 mcg PO DAILY thyroid 12/23/13 0 05/10/25 History losartan 50 mg tablet 50 mg PO DAILY bp 03/15/19 5 History diphenhydramine HCl 25 mg capsule 25 mg PO QDAY PRN allergies 07/1211/07/20 History (Benadryl) duloxetine 60 mg capsule,delayed 60 mg PO DAILY depression 07/13/19 05/10/25 History release acetaminophen 500 mg tablet 1,000 mg PO Q8H PRN Pain 1-10 Or 1 05/10/25 History Fever aspirin 81 mg chewable tablet 81 mg PO DAILY DVT Prophylaxis 05/10/25 History calcium 500 mg (as 1 tab PO BIDCM 08/30/20 11/08/20 R x carbonate)-vitamin D3 5 mcg (200 unit) tablet esomeprazole magnesium 40 mg 40 mg PO 0600,1700 08/30/20 Rx capsule,delayed release ferrous sulfate 27 mg iron tablet 27 mg PO DAILY SUPPLEMENT 1 05/10/25 History meloxicam 15 mg tablet 15 mg PO DAILY PRN PRN Pain 1-10 0 11/08/20 05/10/25 History Or Fever rosuvastatin 10 mg tablet 10 mg PO DAILY cholesterol #90 tab s 05/06/24 05/10/25 Rx hydrocodone-acetamin ophen 5-325mg 1 tab PO Q6H PRN PRN Pain 3 days 05/08/25 Unknown Rx 5mg-325mg #10 TABLETS aspirin-acetaminophe n-caffeine 250 1 tab PO Q6H PRN headache Unknown History mg-250 mg-65 mg tablet (Excedrin Extra Strength) cyanocobalamin (vitamin B-12) 3,000 mcg PO DAILY supplement 04/2605/10/25 History 1,000 mcg tablet,extended release (Vitamin B-12 ER) gabapentin 100 mg capsule 100 mg PO BID 05/11/25 Unknown His tory loperamide 2 mg capsule 2 mg PO Q6H PRN diarrhea 05/11/25 Unknown History (Anti-Diarrheal (loperamide)) multivitamin (Daily Multi-Vitamin 1 tab PO DAILY supplemen (more content not included)... Normal [facility] Hematocrit Auto (Bld) [Volum e fraction]Ordered By: Virgil Corrales on 05-11-2025 Hematocrit (Bld) [Volume fraction] 30.3 % Low 37-47 [facility] Hemoglobin A1con 05-11-2025 HbA1c (Bld) [Mass fraction] 4.7 % Normal <=5.6 [facility] Comment on above: Result Comment: Norm al < 5.7 % Prediabetic 5.7 - 6.4 % Diabetic >or= 6.5 % Please note range changes. Performed By: #### L 506.0200, L503.6030, L501.5200, L501.7300, L503.6550, L501.9520, L501.9985 #### [facility] [place], [address] Hemoglobin A1c percentageOrd ered By: Ifeanyi Paula on 05-11-2025 HbA1c (Bld) [Mass fraction] 4.7 % <5.7 [facility] Comment on above: Normal < 5.7 % Predi abetic 5.7 - 6.4 % Diabetic >or= 6.5 % Please note range changes. Hemoglobin measurementOrdere d By: Virgil Corrales on 05-11-2025 Hemoglobin (Bld) [Mass/Vol] 9.9 g/dL Low 12.0-15.0 [facility] Immature granulocytes/100 WB C Auto (Bld)Ordered By: Virgil Corrales on 05-11-2025 Immature granulocytes/100 WBC (Bld) 0.300 % 0.0-0.9 [facility] Comment on above: IG% - Immature Granu locytes (promyelocytes, myelocytes and metamyelocytes) > 1% indicates that a LEFT SHIFT is Present. Iron measurement (mass/mass) Ordered By: Ifeanyi Paula on 05-11-2025 Iron (Unsp spec) [Mass/Mass] 34 ug/dL Low 50-170 [facility] Iron+Iron Binding Capacityon 05-11-2025 Iron [Mass/Vol] 34 ug/dL Low 50-170 [facility] Comment on above: Performed By: #### L 506.0200, L503.6030, L501.5200, L501.7300, L503.6550, L501.9520, L501.9985 #### [facility] [address] [place], [address] UIBC 255 ug/dL Normal 228-428 [facility] Comment on above: Result Comment: Hemo lysis present, Results??could be affected. ?? Performed By: #### L 506.0200, L503.6030, L501.5200, L501.7300, L503.6550, L501.9520, L501.9985 #### [facility] [address] [place], [address] Ketones Test strip Ql (U)Ord ered By: Virgil Corrales on 05-11-2025 Ketones Ql (U) Negative Negative [facility] L501.4021on 05-11-2025 Trop T High Sen 26 ng/L High <=14 [facility] Comment on above: Performed By: #### L 742.8601 #### [facility] [address] [place], [address] Laboratory - Chemistry and C hemistry - challengeOrdered By: Virgil Corrales on 05-11-2025 AST [Catalytic activity/Vol] 77 U/L High <32 [facility] Comment on above: Hemolysis present, R esults could be affected. Lactic Acidon 05-11-2025 Lactate [Moles/Vol] 3.2 mmol/L Invalid Interpretation Code 0.0-2.0 [facility] Comment on above: Order Comment: Y Result Comment: Crit ical Result(s) Called LSPARR at: 2019 by: MILKA??Results read back by same. Performed By: #### L 745.6002 #### [facility] [address] [place], [address] Lactic acid measurementOrder ed By: Virgil Corrales on 05-11-2025 Lactate [Moles/Vol] 1.3 mmol/L 0.0-2.0 [facility] Lactate [Moles/Vol] 3.2 mmol/L High 0.0-2.0 [facility] Comment on above: Critical Result(s) C rainmanasa LSPARR at: 2019 by: MILKA Results read back by same. Lipaseon 05-11-2025 Lipase [Catalytic activity/Vol] 29 U/L Normal 13-75 [facility] Comment on above: Result Comment: Danuta garcia note: LIPASE revised reference range effective 23. New Lipase methodology. Expected to produce lower values than the previous assay method. NEW Reference Range: 13 - 75 U/L Performed By: #### L 501.2450, L500.4050, L100.0100 #### [facility] [address] [place], [address] Lipase measurementOrdered By : Virgil Corrales on 05-11-2025 Lipase [Catalytic activity/Vol] 29 U/L 13-75 [facility] Comment on above: Please note:LIPASE r evised reference range effective 23. New Lipase methodology. Expected to produce lower values than the previous assay method. NEW Reference Range: 13 - 75 U/L MCV (mean corpuscular volume ) determinationOrdered By: Virgil Corrales on 05-11-2025 MCV (RBC) [Entitic vol] 94.1 fL 81-[address] [facility] Magnesiumon 05-11-2025 Magnesium [Mass/Vol] 2.3 mg/dL High 1.5-2.[address] [facility] Comment on above: Performed By: #### L 506.0200, L503.6030, L501.5200, L501.7300, L503.6550, L501.9520, L501.9985 #### [facility] [address] [place], [address] Mean corpuscular hemoglobin (MCH) determinationOrdered By: Virgil Corrales on 05-11-2025 MCH (RBC) [Entitic mass] 30.7 pg 27.0-32.0 [facility] Mean corpuscular hemoglobin concentration (MCHC) determinationOrdered By: Virgil Corrales on 05-11-2025 MCHC (RBC) [Mass/Vol] 32.7 g/dL 32-36 [facility] Mean platelet volume determi nationOrdered By: Virgil Corrales on 05-11-2025 Platelet mean volume (Bld) [Entitic vol] 9.4 fL 6.2-12.0 [facility] Microscopic analysis of urin e for red blood cells (RBC)Ordered By: Virgil Corrales on 05-11-2025 Microscopic analysis of urine for red blood cells (RBC) 0 SEEN /hpf 0-5 [facility] Monocyte percentageOrdered B y: Virgil Corrales on 05-11-2025 Monocytes/100 WBC (Bld) 8.4 % 0-10 [facility] Mucus LM Ql (Urine sed)Order ed By: Virgil Corrales on 05-11-2025 Mucus Ql (Urine sed) 0 SEEN /hpf [facility] Neutrophil percentageOrdered By: Virgil Corrales on 05-11-2025 Neutrophils/100 WBC (Bld) 83.7 % High 47-70 [facility] Nitrite Test strip Ql (U)Ord ered By: Virgil Corrales on 05-11-2025 Nitrite Ql (U) Negative Negative [facility] No Panel InformationOrdered By: Virgil Corrales on 05-11-2025 Blood Gas Sample Site Not entered [facility] Blood Gas Specimen Type JUDY [facility] Oxygen Delivery Device Not entered [facility] No Panel InformationOrdered By: Ifeanyi Paula on 05-11-2025 Unsaturated Iron Binding Capacity 255 ug/dL 228-428 [facility] Comment on above: Hemolysis present, R esults could be affected. Nucleated red blood cell per centageOrdered By: Virgil Corrales on 05-11-2025 Nucleated RBC/100 WBC (Bld) [Ratio] 0 % 0-5 [facility] Osmolality urOrdered By: Romeo Paula on 05-11-2025 Osmolality (U) [Osmolality] 715 mOsm/KG >50 [facility] Comment on above: Normal Urine Referen ce Ranges Random: 50 - 1200 mOsm/kg H20 depending on fluid intake Random: >850 mOsm/kg after 12 hour fluid restriction 24 hour: ~300 - 900 mOsm/kg H2O Osmolality, Urineon 05-11-20 25 OSMOLALITY,UR 715 mOsm/KG Normal [facility] Comment on above: Result Comment: Normal Urine Reference Ranges Random: 50 - 1200 mOsm/kg H20 depending on fluid intake Random: >850 mOsm/kg after 12 hour fluid restriction 24 hour: 300 - 900 mOsm/kg H2O Performed By: #### L 501.2450, L500.4050, L100.0100 #### [facility] [address] [place], [address] Platelet countOrdered By: Fredrick Corrales on 05-11-2025 Platelets (Bld) [#/Vol] 233 10*3/uL 150-450 [facility] Potassium measurement (mass/ volume)Ordered By: Virgil Corrales on 05-11-2025 Potassium (Unsp spec) [Mass/Vol] 3.9 mmol/L 3.3-5.1 [facility] Comment on above: Hemolysis present, R esults could be affected. Protein Test strip Ql (U)Ord ered By: Virgil Corrales on 05-11-2025 Protein Ql (U) 30 mg/dl High Negative [facility] RBC Auto (Bld) [#/Vol]Ordere d By: Virgil Corrales on 05-11-2025 RBC (Bld) [#/Vol] 3.22 10*6/uL Low 4.2-5.4 [facility] Serum creatinine measurement (mass/volume)Ordered By: Virgil Corrales on 05-11-2025 Creatinine [Mass/Vol] 1.22 mg/dL High 0.70-1.20 [facility] Serum globulin measurementOr dered By: Virgil Corrales on 05-11-2025 Globulin (S) [Mass/Vol] 3.1 g/dL 2.2-4.[address] [facility] Serum glucose measurement (m ass/volume)Ordered By: Virgil Corrales on 05-11-2025 Glucose [Mass/Vol] 124 mg/dL High 70-99 [facility] Serum or plasma alanine garcia otransferase (ALT) measurementOrdered By: Virgil Corrales on 05-11-2025 ALT [Catalytic activity/Vol] 32 U/L <35 [facility] Serum or plasma albumin cong urement (mass/volume)Ordered By: Virgil Corrales on 05-11-2025 Albumin [Mass/Vol] 3.9 g/dL 3.4-4.8 [facility] Serum or plasma albumin/glob ulin mass ratioOrdered By: Virgil Corrales on 05-11-2025 Albumin/Globulin [Mass ratio] 1.3 {ratio} 0.9-2.4 [facility] Serum or plasma alkaline sonido sphatase measurementOrdered By: Virgil Corrales on 05-11-2025 ALP [Catalytic activity/Vol] 86 U/L 35-104 [facility] Serum or plasma calcium cong urement (mass/volume)Ordered By: Virgil Corrales on 05-11-2025 Calcium [Mass/Vol] 9.3 mg/dL 7.6-11.0 [facility] Serum or plasma ferritin jag surement (mass/volume)Ordered By: Ifeanyi Paula on 05-11-2025 Ferritin [Mass/Vol] 135 ng/mL 22-378 [facility] Serum or plasma iron saturat ion measurement (mass fraction)Ordered By: Ifeanyi Paula on 05-11-2025 Iron saturation [Mass fraction] 12.0 % Low 13-59 [facility] Iron saturation [Mass fraction] 11.8 % Low 13-59 [facility] Comment on above: Previous reported re sult: 12.0 %Edited by: JANETTE on 05/11/25:2231 AMENDED REPORT 05/11/252230 IRON SATURATION previously reported as: 12.0 L % Serum or plasma urea nitroge n measurement (mass/volume)Ordered By: Virgil Corrales on 05-11-2025 Urea nitrogen [Mass/Vol] 59 mg/dL High 4-19 [facility] Sodium levelOrdered By: Carol Corrales on 05-11-2025 Sodium [Moles/Vol] 129 mmol/L Low 133-145 [facility] Squamous epithelial cells de tection in urine sediment by light microscopyOrdered By: Virgil Corrales on 05-11-2025 Epithelial cells.squamous LM Ql (Urine sed) 0 SEEN /hpf 5-10 [facility] TSH DL <= 0.005 mIU/L QnOrde red By: Ifeanyi Paula on 05-11-2025 TSH Qn 2.340 uIU/mL 0.300-4.200 [facility] Thyroid Stim Hormone (TSH)on 05-11-2025 TSH 2.340 uIU/mL Normal 0.300-4.200 [facility] Comment on above: Performed By: #### L 506.0200, L503.6030, L501.5200, L501.7300, L503.6550, L501.9520, L501.9985 #### [facility] [address] [place], [address] Total proteinOrdered By: Jurgen Corrales on 05-11-2025 Protein [Mass/Vol] 6.9 g/dL 5.9-8.4 [facility] Troponin T.cardiac [Mass/vol ume] in Serum or Plasma by High sensitivity methodOrdered By: Virgil Corrales on 05-11-2025 Troponin T.cardiac High sensitivity method [Mass/Vol] 26 ng/L High <14 [facility] Type AND Screenon 05-11-2025 Ab SCREEN GEL Negative Normal [facility] Comment on above: Order Comment: Has p t arrived? YA Performed By: #### L 501.2450, L500.4050, L100.0100 #### [facility] [address] [place], [address] Urinalysis, Completeon 05-11 AMORPHOUS 1+ URATE Normal [facility] Comment on above: Order Comment: CLEAN CATCH Performed By: #### L 501.2450, L500.4050, L100.0100 #### [facility] [address] [place], [address] WBC 0-5 SEEN Normal 0-5 [facility] Comment on above: Order Comment: CLEAN CATCH Performed By: #### L 501.2450, L500.4050, L100.0100 #### [facility] [address] [place], [address] BACTERIA 2+ /hpf Normal None Seen [facility] Comment on above: Order Comment: CLEAN CATCH Performed By: #### L 501.2450, L500.4050, L100.0100 #### [facility] [address] [place], [address] EPI,SQUAMOUS 0 SEEN Normal 5-10 [facility] Comment on above: Order Comment: CLEAN CATCH Performed By: #### L 501.2450, L500.4050, L100.0100 #### [facility] [address] [place], [address] Mucus Ql (Urine sed) 0 SEEN Normal [facility] Comment on above: Order Comment: CLEAN CATCH Performed By: #### L 501.2450, L500.4050, L100.0100 #### [facility] [address] [place], [address] RBC 0 SEEN Normal 0-5 [facility] Comment on above: Order Comment: CLEAN CATCH Performed By: #### L 501.2450, L500.4050, L100.0100 #### [facility] [address] [place], [address] Urine clarityOrdered By: Jurgen Corrales on 05-11-2025 Clarity (U) Cloudy Clear [facility] Urine color determinationOrd ered By: Virgil Corrales on 05-11-2025 Color (U) Straw Yellow [facility] Urine glucose detectionOrder ed By: Virgil Corrales on 05-11-2025 Glucose Ql (U) Normal mg/dl Normal [facility] Urine leukocyte esterase det ection by dipstickOrdered By: Virgil Corrales on 05-11-2025 Leukocyte esterase Test strip Ql (U) Negative Negative [facility] Urine pHOrdered By: Virgil chan on 05-11-2025 pH (U) 5.0 [pH] 5.0 - 8.0 [facility] Urine sediment bacteria coun t by microscopy (number/high power field)Ordered By: Virgil Corrales on 05-11-2025 Bacteria LM.HPF (Urine sed) [#/Area] 2 /[HPF] None Seen [facility] Urine specific gravity measu rementOrdered By: Virgil Corrales on 05-11-2025 Specific gravity (U) [Rel density] 1.020 1.002-1.030 [facility] Urine urobilinogen measureme ntOrdered By: Virgil Corrales on 05-11-2025 Urobilinogen Ql (U) Normal mg/dl Normal [facility] Venous Blood Gason Blood Gas Type JUDY Normal [facility] Comment on above: Performed By: #### L 503.6005 #### [facility] [address] [facility] [address] CO2 [Moles/Vol] 21 mmol/L Low 23-33 [facility] Comment on above: Performed By: #### L 503.6005 #### [facility] [address] [place], [address] HCO3 (Bld) [Moles/Vol] 19 mmol/L Low 22-26 [facility] Comment on above: Performed By: #### L 503.6005 #### [facility] [address] [facility] [address] O2 Delivery Dev Not entered Normal [facility] Comment on above: Performed By: #### L 503.6005 #### [facility] [address] [facility] [address] SITE Not entered Normal [facility] Comment on above: Performed By: #### L 503.6005 #### [facility] [address] [place] [id number] VBG BE -6 mmol/L Low -1.0-3.5 [facility] Comment on above: Performed By: #### L 503.6005 #### [facility] [address] [place], [place], [address] VBG pCO2 33.5 mmHg Low 41-51 [facility] Comment on above: Performed By: #### L 503.6005 #### [facility] [address] [place], [place], [address] VBG pH 7.37 Normal 7.32-7.42 [facility] Comment on above: Performed By: #### L 503.6005 #### [facility] [address] [place], [place], [address] VBG PO2 138 mmHg High 25-40 [facility] Comment on above: Performed By: #### L 503.6005 #### [facility] [address] [place], [place], [address] VBG SO2 99 High 50-70 [facility] Comment on above: Performed By: #### L 503.6005 #### [facility] [address] [place], [place], [address] Venous blood base excess jag surementOrdered By: Virgil Corrales on 05-11-2025 Base excess Calc (BldV) [Moles/Vol] -6 mmol/L Low -1.0-3.5 [facility] Venous blood bicarbonate jag surementOrdered By: Virgil Corrales on 05-11-2025 HCO3 (Bld) [Moles/Vol] 19 mmol/L Low 22-26 [facility] Venous blood oxygen saturati on measurementOrdered By: Virgil Corrales on 05-11-2025 Oxygen saturation in Blood 99 % High 50-70 [facility] Venous blood pH measurementO rdered By: Virgil Corrales on 05-11-2025 pH (BldV) 7.37 [pH] 7.32-7.42 [facility] Venous blood partial pressur e of carbon dioxide measurementOrdered By: Virgil Corrales on 05-11-2025 CO2 (BldV) [Partial pressure] 33.5 mm[Hg] Low 41-51 [facility] Venous blood partial pressur e of oxygen measurementOrdered By: Virgil Corrales on 05-11-2025 Oxygen (BldV) [Partial pressure] 138 mm[Hg] High 25-40 [facility] White blood cell (WBC) count Ordered By: Virgil Corrales on 05-11-2025 WBC (Bld) [#/Vol] 11.5 10*3/uL High 4.4-11.0 [facility] White blood cell countOrdere d By: Virgil Corrales on 05-11-2025 White blood cell count 0-5 SEEN /hpf 0-5 [facility] Emergency Department Summary on 05-08-2025 Emergency Department Summary [facility] Medical Records Department [address] [place] [address] Emergency Department Summary 05/08/25 MR#: [id number] Acct: [id number] Name: KATH ARRIAGA Rep #: [id number] : 1945 79 From: Kev Nelson DO PCP: Dr. Deb Yusuf MD Status:REG ER Location: ED HPI History [...] for Parasthesia, Weakness or Loss of Funtion [facility] Medical History (Updated 05/08/25 @ 14:[address] Kev Nelson DO) Atherosclerosis of coronary artery of ak chin heart without angina pectoris Obstructive sleep apnea [...] 1-10 0 11/08/20 11/08/20 History Or Fever wejrqysp-mvwe-[id number] 8 mg-folic 400 1 tab PO DAILY [...] Denies ba (more content not included)... Normal [facility] Shoulder min 2 Viewson 05-08 Shoulder min 2 Views [facility] Imaging Services [address] [place], [place] [address] Shoulder min 2 Views MR#: [id number] Acct: [id number] Name: KATH ARRIAGA Rep #: [id number] : 1945 F 79 From: Jg Talamantes MD PCP: Dr. Deb Yusuf MD Status: REG ER Study: Shoulder min 2 Views Date of Exam: 05/08/25 Exam# [id number] Ordering Dr: Kev Nelson DO PROCEDURE: SHOULDER [...] Degenerative changes of the spine. Reading Location: [id number] CC: Dr. Kev Nelson DO; Dr. Deb Yusuf MD Assistant Professor Surgical Technology: Signed Normal [facility] 25(OH)D3 [facility] 2024 25-hydroxyvitamin D3 [Mass/Vol] 34.8 ng/mL Normal 31.0-80.0 [facility] Comment on above: Order Comment: Speci men Type: BLOOD SPECIMEN Ordering Facility: [facility] Address: [address] [place] [address] Performed By: #### 1 989-3 #### [facility] CLIA [id number] [address] [place] [address] [place] CBC W Auto Differential pane l (Bld)on 03-14-2025 Basophils (Bld) [#/Vol] 0.03 10*3/uL Normal <0.11 [facility] Comment on above: Order Comment: Speci men Type: BLOOD SPECIMEN Ordering Facility: [facility] Address: [address] [place] [address] Performed By: #### 5 7021-8 #### [facility] CLIA [id number] [address] [place] [address] [place] Basophils/100 WBC (Bld) 0.4 % Normal [facility] Comment on above: Order Comment: Speci men Type: BLOOD SPECIMEN Ordering Facility: [facility] Address: [address] [place] [address] Performed By: #### 5 7021-8 #### [facility] CLIA [id number] [address] [place] [address] [place] Differential cell count method Nom (Bld) Auto Normal [facility] Comment on above: Order Comment: Speci men Type: BLOOD SPECIMEN Ordering Facility: [facility] Address: [address] [place] [address] Performed By: #### 5 7021-8 #### [facility] CLIA [id number] [address] [place] [address] [place] Eosinophils (Bld) [#/Vol] 0.09 10*3/uL Normal <0.46 [facility] Comment on above: Order Comment: Speci men Type: BLOOD SPECIMEN Ordering Facility: [facility] Address: [address] [place] [address] Performed By: #### 5 7021-8 #### [facility] CLIA [id number] [address] [place] [address] [place] Eosinophils/100 WBC (Bld) 1.2 % Normal [facility] Comment on above: Order Comment: Speci men Type: BLOOD SPECIMEN Ordering Facility: [facility] Address: [address] [place] [address] Performed By: #### 5 7021-8 #### [facility] CLIA [id number] [address] [place] [address] [place] Erythrocyte distribution width (RBC) [Ratio] 13.2 % Normal 11.5-15.0 [facility] Comment on above: Order Comment: Speci men Type: BLOOD SPECIMEN Ordering Facility: [facility] Address: [address] [place] [address] Performed By: #### 5 7021-8 #### [facility] CLIA [id number] [address] [place] [address] [place] Hematocrit (Bld) [Volume fraction] 39.2 % Normal 36.0-46.0 [facility] Comment on above: Order Comment: Speci men Type: BLOOD SPECIMEN Ordering Facility: [facility] Address: [address] [place] [address] Performed By: #### 5 7021-8 #### [facility] CLIA [id number] [address] [place] [address] [place] Hemoglobin (Bld) [Mass/Vol] 13.2 g/dL Normal 11.5-15.5 [facility] Comment on above: Order Comment: Speci men Type: BLOOD SPECIMEN Ordering Facility: [facility] Address: [address] [place] [address] Performed By: #### 5 7021-8 #### [facility] CLIA [id number] [address] [place] [address] [place] Immature granulocytes (Bld) [#/Vol] 10*3/uL Normal <0.10 [facility] Comment on above: Order Comment: Speci men Type: BLOOD SPECIMEN Ordering Facility: [facility] Address: [address] [place] [address] Performed By: #### 5 7021-8 #### [facility] CLIA [id number] [address] [place] [address] [place] Immature granulocytes/100 WBC (Bld) 0.3 % Normal [facility] Comment on above: Order Comment: Speci men Type: BLOOD SPECIMEN Ordering Facility: [facility] Address: [address] [place] [address] Performed By: #### 5 7021-8 #### [facility] CLIA [id number] [address] [place] [address] [place] Lymphocytes (Bld) [#/Vol] 1.03 10*3/uL Normal 1.00-4.00 [facility] Comment on above: Order Comment: Speci men Type: BLOOD SPECIMEN Ordering Facility: [facility] Address: [address] [place] [address] Performed By: #### 5 7021-8 #### [facility] CLIA [id number] [address] [place] [address] [place] Lymphocytes/100 WBC (Bld) 14.1 % Normal [facility] Comment on above: Order Comment: Speci men Type: BLOOD SPECIMEN Ordering Facility: [facility] Address: [address] [place] [address] Performed By: #### 5 7021-8 #### [facility] CLIA [id number] [address] [place] [address] [place] MCH (RBC) [Entitic mass] 30.7 pg Normal 26.0-34.0 [facility] Comment on above: Order Comment: Speci men Type: BLOOD SPECIMEN Ordering Facility: [facility] Address: [address] [place] [address] Performed By: #### 5 7021-8 #### [facility] CLIA [id number] [address] [place] [address] [place] MCHC (RBC) [Mass/Vol] 33.7 g/dL Normal 30.5-36.0 [facility] Comment on above: Order Comment: Speci men Type: BLOOD SPECIMEN Ordering Facility: [facility] Address: [address] [place] [address] Performed By: #### 5 7021-8 #### [facility] CLIA [id number] [address] [place] [address] [place] MCV (RBC) [Entitic vol] 91.2 fL Normal 80.0-100.0 [facility] Comment on above: Order Comment: Speci men Type: BLOOD SPECIMEN Ordering Facility: [facility] Address: [address] [place] [address] Performed By: #### 5 7021-8 #### [facility] CLIA [id number] [address] [place] [address] [place] Monocytes (Bld) [#/Vol] 0.51 10*3/uL Normal <0.87 [facility] Comment on above: Order Comment: Speci men Type: BLOOD SPECIMEN Ordering Facility: [facility] Address: [address] [place] [address] Performed By: #### 5 7021-8 #### [facility] CLIA [id number] [address] [place] [address] [place] Monocytes/100 WBC (Bld) 7.0 % Normal [facility] Comment on above: Order Comment: Speci men Type: BLOOD SPECIMEN Ordering Facility: [facility] Address: [address] [place] [address] Performed By: #### 5 7021-8 #### [facility] CLIA [id number] [address] [place] [address] [place] Neutrophils (Bld) [#/Vol] 5.62 10*3/uL Normal 1.45-7.50 [facility] Comment on above: Order Comment: Speci men Type: BLOOD SPECIMEN Ordering Facility: [facility] Address: [address] [place] [address] Performed By: #### 5 7021-8 #### [facility] CLIA [id number] [address] [place] [address] [place] Neutrophils/100 WBC (Bld) 77.0 % Normal [facility] Comment on above: Order Comment: Speci men Type: BLOOD SPECIMEN Ordering Facility: [facility] Address: [address] [place] [address] Performed By: #### 5 7021-8 #### [facility] CLIA [id number] [address] [place] [address] [place] Nucleated RBC (Bld) [#/Vol] 10*3/uL Normal <0.01 [facility] Comment on above: Order Comment: Speci men Type: BLOOD SPECIMEN Ordering Facility: [facility] Address: [address] [place] [address] Performed By: #### 5 7021-8 #### [facility] CLIA [id number] [address] [place] [address] [place] Nucleated RBC/100 WBC (Bld) [Ratio] 0.0 /100 WBC Normal [facility] Comment on above: Order Comment: Speci men Type: BLOOD SPECIMEN Ordering Facility: [facility] Address: [address] [place] [address] Performed By: #### 5 7021-8 #### [facility] CLIA [id number] [address] [place] [address] [place] Platelet mean volume (Bld) [Entitic vol] 9.2 fL Normal 9.0-12.7 [facility] Comment on above: Order Comment: Speci men Type: BLOOD SPECIMEN Ordering Facility: [facility] Address: [address] [place] [address] Performed By: #### 5 7021-8 #### [facility] CLIA [id number] [address] [place] [address] [place] Platelets (Bld) [#/Vol] 258 10*3/uL Normal 150-400 [facility] Comment on above: Order Comment: Speci men Type: BLOOD SPECIMEN Ordering Facility: [facility] Address: [address] [place] [address] Performed By: #### 5 7021-8 #### [facility] CLIA [id number] [address] [place] [address] [place] RBC (Bld) [#/Vol] 4.30 10*6/uL Normal 3.90-5.20 [facility] Comment on above: Order Comment: Speci men Type: BLOOD SPECIMEN Ordering Facility: [facility] Address: [address] [place] [address] Performed By: #### 5 7021-8 #### [facility] CLIA [id number] [address] [place] [address] [place] WBC (Bld) [#/Vol] 7.30 10*3/uL Normal 3.70-11.00 [facility] Comment on above: Order Comment: Speci men Type: BLOOD SPECIMEN Ordering Facility: [facility] Address: [address] [place] [address] Performed By: #### 5 7021-8 #### [facility] CLIA [id number] [address] [place] [address] [place] CNOVon 03-14-2025 CNOV Office Visit (INTMWS) KATH ARRIAGA ([id number]) 1945 F [facility] Date Time Provider Department 03/14/25 2:00 PM OLGA STOKES INTMWS During your visit today, we recorded the following information about you: Pulse Blood pressure Weight 90/minute 144/80 94.1 kg Olga Stokes APRN.[employer] 03/14/2025 3:06 PM Signed SUBJECTIVE Kath Arriaga [...] injury sustained years ago while working at [employer], which has contributed to her chronic pain. [...] (Patient not taking: Reported on 03/14/2025) Walker [facility] Walker with wheels and a seat Dx: [...] taking: Reported on 03/14/2025) Miscellaneous Medical Supply [facility] Boost Max 1 can twice daily Calcium [...] ER Latex (more content not included)... Normal [facility] metabolic 2000 panelon 03-14-2025 Albumin [Mass/Vol] 4.6 g/dL Normal 3.9-4.9 [facility] Comment on above: Order Comment: Speci men Type: BLOOD SPECIMEN Ordering Facility: [facility] Address: [address] [place] [address] Performed By: #### L IPNF, 14423-1, 99788-8, 3051-0 #### [facility] CLIA [id number] [address] [place] [address] [place] ALP [Catalytic activity/Vol] 86 U/L Normal 34-123 [facility] Comment on above: Order Comment: Speci men Type: BLOOD SPECIMEN Ordering Facility: [facility] Address: [address] [place] [address] Performed By: #### L IPNF, 99112-4, 96603-1, 3051-0 #### [facility] CLIA [id number] [address] [place] [address] [place] ALT [Catalytic activity/Vol] 13 U/L Normal 7-38 [facility] Comment on above: Order Comment: Speci men Type: BLOOD SPECIMEN Ordering Facility: [facility] Address: [address] [place] [address] Performed By: #### L IPNF, 11685-2, 00537-3, 3051-0 #### [facility] CLIA [id number] [address] [place] [address] [place] Anion gap [Moles/Vol] 11 mmol/L Normal 8-15 [facility] Comment on above: Order Comment: Speci men Type: BLOOD SPECIMEN Ordering Facility: [facility] Address: [address] [place] [address] Performed By: #### L IPNF, 17973-3, 40269-9, 3051-0 #### [facility] CLIA [id number] [address] [place] [address] [place] AST [Catalytic activity/Vol] 20 U/L Normal 13-35 [facility] Comment on above: Order Comment: Speci men Type: BLOOD SPECIMEN Ordering Facility: [facility] Address: [address] [place] [address] Performed By: #### L IPNF, 89897-0, 21513-9, 3051-0 #### [facility] CLIA [id number] [address] [place], [place] [address] [place] Bilirubin [Mass/Vol] 0.2 mg/dL Normal 0.2-1.[address] [facility] Comment on above: Order Comment: Speci men Type: BLOOD SPECIMEN Ordering Facility: [facility] Address: [address] [place] [address] Performed By: #### L IPNF, 96643-9, 71547-0, 3051-0 #### [facility] CLIA [id number] [address] [place] [address] [place] Calcium [Mass/Vol] 9.6 mg/dL Normal 8.5-10.2 [facility] Comment on above: Order Comment: Speci men Type: BLOOD SPECIMEN Ordering Facility: [facility] Address: [address] [place] [address] Performed By: #### L IPNF, 15357-1, 02151-5, 3051-0 #### [facility] CLIA [id number] [address] [place] [address] [place] Chloride [Moles/Vol] 100 mmol/L Normal 98-[address] [facility] Comment on above: Order Comment: Speci men Type: BLOOD SPECIMEN Ordering Facility: [facility] Address: [address] [place], [place] [address] Performed By: #### L IPNF, 51514-1, 85150-3, 3051-0 #### [facility] CLIA [id number] [address] [place] [address] [place] CO2 [Moles/Vol] 22 mmol/L Normal 22-30 [facility] Comment on above: Order Comment: Speci men Type: BLOOD SPECIMEN Ordering Facility: [facility] Address: [address] [place] [address] Performed By: #### L BINH, 13467-6, 47701-7, 305-0 #### [facility] CLIA [id number] [address] [place], [place] [address] [place] Creatinine [Mass/Vol] 0.71 mg/dL Normal 0.58-0.96 [facility] Comment on above: Order Comment: Speci men Type: BLOOD SPECIMEN Ordering Facility: [facility] Address: [address] [place] [address] Performed By: #### L BINH, 53654-2, 04738-1, 305-0 #### [facility] CLIA [id number] [address] [place] [address] [place] Creatinine and Glomerular filtration rate.predicted panel (S/P/Bld) 86 mL/min/1.73m??? Normal >=60 [facility] Comment on above: Order Comment: Margoi men Type: BLOOD SPECIMEN Ordering Facility: [facility] Address: [address] [place] [address] Result Comment: Renee mated Glomerular Filtration Rate [...] reflect actual GFR. Performed By: #### L IPUCHE, 74648-8, 81864-0, 305-0 #### [facility] CLIA [id number] [address] [place], [place] [address] [place] Glucose [Mass/Vol] 99 mg/dL Normal 74-99 [facility] Comment on above: Order Comment: Speci men Type: BLOOD SPECIMEN Ordering Facility: [facility] Address: [address], [place] [address] Result Comment: The [place] [employer] (ADA) provides guidance for cutoff [...] Standards of Medical Care in Diabetes 2016, [place] [employer]. Diabetes Care. 2016.39(Suppl 1). Performed By: #### L BINH, 15783-7, 30251-5, 3051-0 #### [facility] CLIA [id number] [address] [place] [address] [place] Potassium [Moles/Vol] 5.1 mmol/L Normal 3.7-5.1 [facility] Comment on above: Order Comment: Speci men Type: BLOOD SPECIMEN Ordering Facility: [facility] Address: [address] [place] [address] Performed By: #### L BINH, 79250-1, 00421-7, 305-0 #### [facility] CLIA [id number] [address] [place] [address] [place] Protein [Mass/Vol] 7.5 g/dL Normal 6.3-8.0 [facility] Comment on above: Order Comment: Speci men Type: BLOOD SPECIMEN Ordering Facility: [facility] Address: [address] [place] [address] Performed By: #### L BINH, 07202-5, 65237-8, 305-0 #### [facility] CLIA [id number] [address] [place] [address] [place] Sodium [Moles/Vol] 133 mmol/L Low 136-144 [facility] [facility] Comment on above: Order Comment: Speci men Type: BLOOD SPECIMEN Ordering Facility: [facility] Address: [address] [place] [address] Performed By: #### L IPNF, 44186-9, 46957-0, 3051-0 #### [facility] CLIA [id number] [address] [place] [address] [place] Urea nitrogen [Mass/Vol] 32 mg/dL High 7-21 [facility] Comment on above: Order Comment: Speci men Type: BLOOD SPECIMEN Ordering Facility: [facility] Address: [address] [place] [address] Performed By: #### L IPNF, 29903-7, 05312-6, 3051-0 #### [facility] CLIA [id number] [address] [place] [address] [place] [facility] Ferritin [Mass/Vol] 85.9 ng/mL Normal 14.7-205.1 [facility] Comment on above: Order Comment: Speci men Type: BLOOD SPECIMEN Ordering Facility: [facility] Address: [address] [place] [address] Performed By: #### 2 276-4, 3024-7, 3016-3 #### [facility] CLIA [id number] [address] [place] [address] [place] Iron and Iron binding capaci panelon 03-14-2025 Iron [Mass/Vol] 44 ug/dL Normal 41-186 [facility] Comment on above: Order Comment: Speci men Type: BLOOD SPECIMEN Ordering Facility: [facility] Address: [address] [place] [address] Performed By: #### L IPNF, 16117-4, 95662-5, 3051-0 #### [facility] CLIA [id number] [address] [place], [place] [id number] [place] Iron binding capacity [Mass/Vol] 331 ug/dL Normal 232-386 [facility] Comment on above: Order Comment: Speci men Type: BLOOD SPECIMEN Ordering Facility: [facility] Address: [address] [place] [address] Performed By: #### L IPNF, 17178-6, 17473-3, 3051-0 #### [facility] CLIA [id number] [address] [place] [address] [place] Iron/TIBC [Molar ratio] 13.3 % Low 15.0-57.0 [facility] Comment on above: Order Comment: Speci men Type: BLOOD SPECIMEN Ordering Facility: [facility] Address: [address] [place] [address] Performed By: #### L IPNF, 12290-9, 89719-0, 3051-0 #### [facility] CLIA [id number] [address] [place] [address] [place] LIPID PANEL, NONFASTINGon Cholesterol [Mass/Vol] 178 mg/dL Normal <200 [facility] Comment on above: Order Comment: Speci men Type: BLOOD SPECIMEN Ordering Facility: [facility] Address: [address] [place] [address] Result Comment: <200 mg/dL, Desirable 200-239 mg/dL, Borderline high >239 mg/dL, High Performed By: #### L IPNF, 84313-3, 53200-9, 3051-0 #### [facility] CLIA [id number] [address] [place] [address] [place] HDL CHOLESTEROL, NF 69 mg/dL Normal >39 [facility] Comment on above: Order Comment: Speci men Type: BLOOD SPECIMEN Ordering Facility: [facility] Address: [address] [place] [address] Result Comment: 40-5 9 mg/dL, Acceptable >59 mg/dL, High: Negative risk factor for coronary heart disease <40 mg/dL, Low: Positive risk factor for coronary heart disease Performed By: #### L IPNF, 47640-1, 54479-5, 3051-0 #### [facility] CLIA [id number] [facility] [address] [place] LDL CHOLESTEROL CALCULATED, NF 92 mg/dL Normal <100 [facility] Comment on above: Order Comment: Sandy jackson Type: BLOOD SPECIMEN Ordering Facility: [facility] Address: [address] [place] [address] Result Comment: <100 mg/dL, Optimal 100-129 mg/dL, Near optimal/above optimal 130-159 mg/dL, Borderline high 160-189 mg/dL, High >189 mg/dL, Very high Secondary prevention optimal LDL Cholesterol levels are recommended to be <70 mg/dL LDL cholesterol is calculated using the Cat-NIH equation. Performed By: #### L BINH, 27404-4, 83361-0, 3050-0 #### [facility] CLIA [id number] [address] [place] [address] [place] LDL/HDL RATIO, NF 1.33 mg/dL Normal <2.54 [facility] Comment on above: Order Comment: Sandy jackson Type: BLOOD SPECIMEN Ordering Facility: [facility] Address: [address] [place] [address] Result Comment: Bowen dash: 1. National Cholesterol Education Program ATP III Guideline At-A-Glance Quick Desk Reference: National Heart, Lung, and Blood [place]. National Institutes of Health. 2001: NIH Publication No. 01-3305. 2. An International Atherosclerosis Society position paper: global recommendations for the management of dyslipidemia: executive summary, Atherosclerosis. 2014: 232(2):410-413. Performed By: #### L IPNF, 13286-7, 25887-3, 3050-0 #### [facility] CLIA [id number] [address] [place] [address] [place] NON HDL CHOL, NF 109 mg/dL Normal <130 [facility] Comment on above: Order Comment: Sandy manuel Type: BLOOD SPECIMEN Ordering Facility: [facility] Address: [address] [place] [address] Result Comment: <130 mg/dL, Optimal 130-159 mg/dL, Near optimal/above optimal 160-189 mg/dL, Borderline high 190-219 mg/dL, High >219 mg/dL, Very high Secondary prevention optimal non HDL Cholesterol levels are recommended to be <100 mg/dL Performed By: #### L IPNF, 98927-4, 94942-0, 3051-0 #### [facility] CLIA [id number] [address] [place] [address] [place] T CHOL/HDL RATIO NF 2.58 mg/dL Normal <5.10 [facility] Comment on above: Order Comment: Speci men Type: BLOOD SPECIMEN Ordering Facility: [facility] Address: [address] [place] [address] Performed By: #### L IPNF, 26628-3, 32340-9, 3051-0 #### [facility] CLIA [id number] [address] [place] [address] [place] TRIGLYCERIDES, NF 96 mg/dL Normal <150 [facility] Comment on above: Order Comment: Speci men Type: BLOOD SPECIMEN Ordering Facility: [facility] Address: [address] [place] [address] Result Comment: <150 mg/dL, Normal 150-199 mg/dL, Borderline high 200-499 mg/dL, High >499 mg/dL, Very high Performed By: #### L IPNF, 18055-4, 20981-6, 3051-0 #### [facility] CLIA [id number] [address] [place] [address] [place] VLDL CHOLESTEROL, NF 15 mg/dL Normal <[address] [facility] Comment on above: Order Comment: Speci men Type: BLOOD SPECIMEN Ordering Facility: [facility] Address: [address] [place] [address] Performed By: #### L IPNF, 51882-7, 33815-0, 3051-0 #### [facility] CLIA [id number] [address] [place] [address] [place] T3Free SerPl-mCncon 03-14-20 25 Free T3 [Mass/Vol] 2.4 pg/mL Normal 2.3-4.1 [facility] Comment on above: Order Comment: Speci men Type: BLOOD SPECIMENOrdering Facility: [facility] Address: [address] [place] [address] Performed By: #### L IP, 10177-0, 60517-6, 3051-0 ####[facility] [id number] [place] [address] [place] T4 Free SerPl-mCncon 025 Free T4 [Mass/Vol] 1.0 ng/dL Normal 0.9-1.7 [facility] Comment on above: Order Comment: Speci men Type: BLOOD SPECIMEN Ordering Facility: [facility] Address: [address] [place] [address] Performed By: #### 2 276-4, 3024-7, 3016-3 #### [facility] CLIA [id number] [address] [place] [address] [place] TSH SerPl-aCncon 03-14-2025 TSH Qn 2.490 m[IU]/L Normal 0.270-4.200 [facility] Comment on above: Order Comment: Speci men Type: BLOOD SPECIMEN Ordering Facility: [facility] Address: [address] [place] [address] Performed By: #### 2 276-4, 3024-7, 3016-3 #### [facility] CLIA [id number] [address] [place] [address] [place] CNOVon 07-13-2024 CNOV Office Visit (INTMWS) KATH ARRIAGA ([id number]) 1945 F [place] Date Time Provider Department 07/13/24 2:00 PM OLGA STOKES INTDHEERAJ During your visit today, we recorded the following information about you: Pulse Blood pressure Weight 91/minute 144/80 91.2 kg Olga Stokes APRN.SEAFOOD HARVESTER 07/13/2024 2:45 PM Signed SUBJECTIVE Kath Arriaga is a 78 year old female here today for a check up on her medical problems. Chief Complaint Patient presents with: F/U 6 months Immunizations: Flu vaccination HPI Kath Arriaga is a 78 year old female. She is an established patient of Deb Yusuf MD. Here today for a 6 month [...] 1 tablet by mouth as needed. Walker [facility] Walker with wheels and a seat Dx: [...] 2 cartons per day Miscellaneous Medical Supply [facility] Boost Max 1 can twice daily COMPOUNDED [...] ACTIVE PROBLEM LIST Coronary Artery Disease Involving [place] Coronary Artery of [place] Heart Without Angina Pectoris - 05/04/2020 Comment: [...] Current packs (more content not included)... Normal [facility] CBC W Auto Differential pane l (Bld)on 05-21-2022 Abs Immature Gran 0.03 k/uL <0.10 k/uL [facility] Basophils (Bld) [#/Vol] 0.04 10*3/uL <0.11 k/uL [facility] Basophils/100 WBC (Bld) 0.6 % [facility] Differential cell count method Nom (Bld) Auto [facility] Eosinophils (Bld) [#/Vol] 0.13 10*3/uL <0.46 k/uL [facility] Eosinophils/100 WBC (Bld) 1.9 % [facility] Erythrocyte distribution width (RBC) [Ratio] 13.5 % 11.5 - 15.0 % [facility] Hematocrit (Bld) [Volume fraction] 41.0 % 36.0 - 46.0 % [facility] Hemoglobin (Bld) [Mass/Vol] 13.9 g/dL 11.5 - 15.5 g/dL [facility] Immature Gran % 0.4 % [facility] Lymphocytes (Bld) [#/Vol] 1.25 10*3/uL 1.00 - 4.00 k/uL [facility] Lymphocytes/100 WBC (Bld) 18.7 % [facility] MCH (RBC) [Entitic mass] 30.5 pg 26.0 - 34.0 pg [facility] MCHC (RBC) [Mass/Vol] 33.9 g/dL 30.5 - 36.0 g/dL [facility] MCV (RBC) [Entitic vol] 89.9 fL 80.0 - 100.0 fL [facility] Monocytes (Bld) [#/Vol] 0.52 10*3/uL <0.87 k/uL [facility] Monocytes/100 WBC (Bld) 7.8 % [facility] Neutrophils (Bld) [#/Vol] 4.73 10*3/uL 1.45 - 7.50 k/uL [facility] Neutrophils/100 WBC (Bld) 70.6 % [facility] Nucleated RBC (Bld) [#/Vol] 10*3/uL <0.01 k/uL [facility] Nucleated RBC/100 WBC (Bld) [Ratio] 0.0 /100 WBC [facility] Platelet mean volume (Bld) [Entitic vol] 9.2 fL 9.0 - 12.7 fL [facility] Platelets (Bld) [#/Vol] 286 10*3/uL 150 - 400 k/uL [facility] RBC (Bld) [#/Vol] 4.56 10*6/uL 3.90 - 5.2 0 m/uL [facility] WBC (Bld) [#/Vol] 6.70 10*3/uL 3.70 - 11.00 k/uL [facility] Office Visit: Spine Visit- R sided low back painon 03-27-2017 Documentation of current medications (procedure) Done Invalid Interpretation Code [facility] Work Phone: Office Visit: Spine Visit- R sided low back painon 03-26-2017 Documentation of current medications (procedure) Done Invalid Interpretation Code [facility] Work Phone: Office Visit: Spine Visit- R sided low back painon 03-11-2017 Documentation of current medications (procedure) Done Invalid Interpretation Code [facility] Work Phone: Office Visit: Spine Visit- R sided low back painon 03-10-2017 Protein mass conc [facility] Work Phone: Office Visit: Spine Visit- R sided low back painon 03-05-2017 Documentation of current medications (procedure) Done Invalid Interpretation Code [facility] Work Phone: Office Visit: Spine Visit NE Won 03-03-2017 Dietary management education, guidance, and counseling (procedure) yes Invalid Interpretation Code [facility] Work Phone: Tobacco smoking status NHIS Former smoker [facility] Work Phone: Tobacco use CPHS Former smoker Invalid Interpretation Code [facility] Work Phone: Office Visit: hx of invasive MRSA infections x 2 , impending prosth hipon 11-24-2013 Documentation of current medications (procedure) Done Invalid Interpretation Code [facility] Work Phone: Lab Report: Elsie 013 GE use only - for LinkLogic import when terms are not otherwise specified Negative Invalid Interpretation Code Negative [facility] Work Phone: LtMRSA Negative Negative [facility] Work Phone: Office Visit: MRSA facialj/R max sinus infection, week 5/6on 08-02-2013 Tobacco use CPHS never smoker Invalid Interpretation Code [facility] Work Phone: Lab Report: Mone 3 Erythrocytes (RBC) 4.03 10*6/uL Low 4.2-5.4 [...] [facility] Work Phone: [facility] Alanine aminotransferase (ALT) 18 U/L Normal 12-78 [facility] Work [facility]: Albumin 3.6 g/dL Normal 3.4-5.0 [facility] Work Phone: Alkaline phosphatase (ALP) 223 U/L High 50-136 [facility] Work Phone: ALP enzyme act/vol (Bld) 223 U/L High 50-136 [facility] Work Phone: Aspartate aminotransferase (AST) 18 U/L Normal 15-37 [facility] Work [facility]: Bilirubin (total) 0.60 mg/dL Normal 0.00-1.00 [facility] Work Phone: Calcium 8.8 mg/dL Normal 8.5-10.1 [facility] Work Phone: Chloride 98 mmol/L Normal 98-107 [facility] Work Phone: Creatinine 0.7 mg/dL Normal 0.6-1.0 [facility] Work Phone: Glucose 86 mg/dL Normal 70-110 [facility] Work Phone: Glucose mass conc 86 mg/dL Normal 70-110 [facility] Work Phone: Potassium 4.0 mmol/L Normal 3.5-5.1 [facility] Work Phone: Sodium 133 mmol/L Low 136-145 [facility] Work [facility]: Urea nitrogen 18 mg/dL Normal 7-18 [facility] Work Phone: Vital Signs Date Time Vital Sign Value Performing Clinician Facility 05-17-2025 13:46-0400 Body temperature 98 [degF] Dr. Deb Yusuf MD Work Phone: 8(954)133-266818 [place] [address] 05-17-2025 13:46-0400 Diastolic blood pressure 87 mm[Hg] Dr. Deb Yusuf MD Work Phone: 7(131)159-270518 [place] [address] 05-17-2025 13:46-0400 Heart rate 86 /min Dr. Deb Yusuf MD Work Phone: 4(513)467-197818 [place] [address] 05-17-2025 13:46-0400 Respiratory rate 18 /min Dr. Deb Yusuf MD Work Phone: 2(936)112-612618 [place] [address] 05-17-2025 13:46-0400 SaO2% (BldA) [Mass fraction] 95 % Dr. Deb Yusuf MD Work Phone: 0(094)271-507718 [place] [address] 05-17-2025 13:46-0400 Systolic blood pressure 131 mm[Hg] Dr. Deb Yusuf MD Work Phone: 0(115)618-116618 [place] [address] 05-17-2025 05:41-0400 Body mass index (BMI) [Ratio] 35.8 kg/m2 Dr. Deb Yusuf MD Work Phone: 7(258)003-885516 [place] [address] 05-17-2025 05:41-0400 Body weight 95.[address] Deb Yusuf MD Work Phone: 8(039)964-965218 [place] [address] 05-16-2025 11:52-0400 Body height 162.[address] Deb Yusuf MD Work Phone: 7(755)776-522318 [place] [address] 05-13-2025 14:13-0400 Inhaled oxygen flow rate 100 L/min Dr. Deb Yusuf MD Work Phone: 7(110)436-457916 [place] [address] 05-11-2025 21:21-0400 Body temperature 98.6 [degF] Dr. Deb Yusuf MD Work Phone: 5(598)486-993018 [place] [address] 05-11-2025 21:21-0400 Diastolic blood pressure 78 mm[Hg] Dr. Deb Yusuf MD Work Phone: 4(772)907-771618 [place] [address] 05-11-2025 21:21-0400 Heart rate 90 /min Dr. Deb Yusuf MD Work Phone: 3(910)821-284118 [place] [address] 05-11-2025 21:21-0400 Respiratory rate 16 /min Dr. Deb Yusuf MD Work Phone: 1(373)665-189518 [place] [address] 05-11-2025 21:21-0400 SaO2% (BldA) [Mass fraction] 100 % Dr. Deb Yusuf MD Work Phone: 5(256)831-876218 [place] [address] 05-11-2025 21:21-0400 Systolic blood pressure 114 mm[Hg] Dr. Deb Yusuf MD Work Phone: 7(137)606-793218 [place] [address] 05-11-2025 16:54-0400 Body height 162.[address] Deb Yusuf MD Work Phone: 3(850)342-693618 [place] [address] 05-11-2025 16:54-0400 Body mass index (BMI) [Ratio] 36.5 kg/m2 Dr. Deb Yusuf MD Work Phone: 9(663)915-567016 [place] [address] 05-11-2025 16:54-0400 Body weight 96.[address] Deb Yusuf MD Work Phone: 7(138)774-983618 [place] [address] 05-08-2025 17:52-0400 Diastolic blood pressure 64 mm[Hg] Dr. Deb Yusuf MD Work Phone: 4(866)373-164418 [place] [address] 05-08-2025 17:52-0400 Heart rate 78 /min Dr. Deb Yusuf MD Work Phone: 1(666)785-781218 [place] [address] 05-08-2025 17:52-0400 Respiratory rate 16 /min Dr. Deb Yusuf MD Work Phone: 7(799)018-128716 [place] [address] 05-08-2025 17:52-0400 SaO2% (BldA) [Mass fraction] 98 % Dr. Deb Yusuf MD Work Phone: 0(202)493-899018 [place] [address] 05-08-2025 17:52-0400 Systolic blood pressure 141 mm[Hg] Dr. Deb Yusuf MD Work Phone: 2(105)654-478218 [place] [address] 05-08-2025 15:29-0400 Body temperature 98.4 [degF] Dr. Deb Yusuf MD Work Phone: 0(799)120-190916 [place] [address] 05-08-2025 13:58-0400 Body height 162.[address] Deb Yusuf MD Work Phone: 5(289)160-484018 [place] [address] 05-08-2025 13:58-0400 Body mass index (BMI) [Ratio] 35.7 kg/m2 Dr. Deb Yusuf MD Work Phone: 9(276)867-649918 [place] [address] 05-08-2025 13:58-0400 Body weight 94.[address] Deb Yusuf MD Work Phone: 9(383)390-226818 [place] [address] 03-14-2025 14:32-0400 Diastolic blood pressure 80 mm[Hg] Olga Divya SOCIAL SCIENCE TEACHER.SEAFOOD HARVESTER Work Phone: [facility] 03-14-2025 14:32-0400 Systolic blood pressure 144 mm[Hg] Olga Divya SOCIAL SCIENCE TEACHER.SEAFOOD HARVESTER Work Phone: [facility] 03-14-2025 14:23-0400 Body mass index (BMI) [Ratio] 34.52 kg/m2 Olga Divya SOCIAL SCIENCE TEACHER.SEAFOOD HARVESTER Work Phone: [facility] 03-14-2025 14:23-0400 Body weight 94.1 kg Olga Divya SOCIAL SCIENCE TEACHER.SEAFOOD HARVESTER Work Phone: [facility] 03-14-2025 14:23-0400 Heart rate 90 /min Olga Divya SOCIAL SCIENCE TEACHER.SEAFOOD HARVESTER Work Phone: [facility] 03-14-2025 14:23-0400 SaO2% (BldA) [Mass fraction] 97 % Olga Divya SOCIAL SCIENCE TEACHER.SEAFOOD HARVESTER Work Phone: [facility] 07-13-2024 13:48-0400 Diastolic blood pressure 80 mm[Hg] Olga Divya SOCIAL SCIENCE TEACHER.SEAFOOD HARVESTER Work Phone: [facility] 07-13-2024 13:48-0400 Systolic blood pressure 144 mm[Hg] Olga Divya SOCIAL SCIENCE TEACHER.SEAFOOD HARVESTER Work Phone: [facility] 07-13-2024 13:46-0400 Body mass index (BMI) [Ratio] 33.46 kg/m2 Olga Divya SOCIAL SCIENCE TEACHER.SEAFOOD HARVESTER Work Phone: [facility] 07-13-2024 13:46-0400 Body weight 91.2 kg Olga Divya SOCIAL SCIENCE TEACHER.SEAFOOD HARVESTER Work Phone: [facility] 07-13-2024 13:46-0400 Heart rate 91 /min Olga Divya SOCIAL SCIENCE TEACHER.SEAFOOD HARVESTER Work Phone: [facility] 07-13-2024 13:46-0400 SaO2% (BldA) [Mass fraction] 96 % Olga Divya SOCIAL SCIENCE TEACHER.SEAFOOD HARVESTER Work Phone: [facility] 09-02-2022 14:42-0500 Body temperature 97.81 [degF] Grisel Older SOCIAL SCIENCE TEACHER.SEAFOOD HARVESTER Work Phone: [facility] 09-02-2022 14:42-0500 Body weight 97.52 kg Grisel Older SOCIAL SCIENCE TEACHER.SEAFOOD HARVESTER Work Phone: [facility] 09-02-2022 14:42-0500 Diastolic blood pressure 72 mm[Hg] Grisel Older SOCIAL SCIENCE TEACHER.SEAFOOD HARVESTER Work Phone: [facility] 09-02-2022 14:42-0500 Heart rate 93 /min Grisel Older SOCIAL SCIENCE TEACHER.SEAFOOD HARVESTER Work Phone: [facility] 09-02-2022 14:42-0500 SaO2% (BldA) [Mass fraction] 98 % Grisel Older SOCIAL SCIENCE TEACHER.SEAFOOD HARVESTER Work Phone: [facility] 09-02-2022 14:42-0500 Systolic blood pressure 104 mm[Hg] [facility] SOCIAL SCIENCE TEACHER.SEAFOOD HARVESTER Work Phone: [facility] 05-21-2022 10:36-0400 Body weight 96.62 kg Jaja Kirkpatrick SOCIAL SCIENCE TEACHER.DRAW OPERATOR Work Phone: [facility] 05-21-2022 10:36-0400 Diastolic blood pressure 80 mm[Hg] Jaja Kirkpatrick SOCIAL SCIENCE TEACHER.DRAW OPERATOR Work Phone: [facility] 05-21-2022 10:36-0400 Heart rate 91 /min Jaja Kirkpatrick SOCIAL SCIENCE TEACHER.DRAW OPERATOR Work Phone: [facility] 05-21-2022 10:36-0400 Respiratory rate 18 /min Jaja Kirkpatrick SOCIAL SCIENCE TEACHER.DRAW OPERATOR Work Phone: [facility] 05-21-2022 10:36-0400 SaO2% (BldA) [Mass fraction] 95 % Jaja Kirkpatrick SOCIAL SCIENCE TEACHER.DRAW OPERATOR Work Phone: [facility] 05-21-2022 10:36-0400 Systolic blood pressure 132 mm[Hg] Jaja Kirkpatrick SOCIAL SCIENCE TEACHER.DRAW OPERATOR Work Phone: [facility] 03-03-2017 13:39-0400 BMI (Body Mass Index) 33.44 kg/m2 Daisy Dossi DC [facility] Work Phone: 03-03-2017 13:39-0400 Body weight 91.17 kg Daisy Dossi DC [facility] Work Phone: 03-03-2017 13:39-0400 BP Diastolic 79 mm[Hg] Daisy Dossi DC [facility] Work Phone: 03-03-2017 13:39-0400 BP Systolic 124 mm[Hg] Daisy Dossi DC [facility] Work Phone: 03-03-2017 13:39-0400 Weight 91.17 kg Daisy Dossi DC [facility] Work Phone: 11-24-2013 13:06-0500 BMI (Body Mass Index) 35.59 kg/m2 Berta Bondimes [facility] Work Phone: 11-24-2013 13:06-0500 Body Temperature 96.8 [degF] Berta Isaac [facility] Work Phone: 11-24-2013 13:06-0500 BP Diastolic 82 mm[Hg] Berta Bondimes [facility] Work Phone: 11-24-2013 13:06-0500 BP Systolic 131 mm[Hg] [facility]a [facility] Work Phone: 11-24-2013 13:06-0500 Pulse (Heart Rate) 78 /min Berta Bondimes [facility] Work Phone: 11-24-2013 13:06-0500 Pulse Oximetry 97 % Berta Bondimes [facility] Work Phone: 11-24-2013 13:06-0500 Respiratory Rate 18 /min Berta [facility] Work Phone: 11-24-2013 13:06-0500 Weight 96.66 kg Berta Bondimes [facility] Work Phone: 08-02-2013 16:02-0400 Height 165.1 cm Berta [facility] Work Phone: Encounters Encounter Date Encounter Type Care Provider Facility Start: 05-17-2025 Non-patient / Non-visit [facility] Work Phone: Start: 05-16-2025 Non-patient / Non-visit [facility] Work Phone: Start: 05-15-2025 Non-patient / Non-visit Dr. Ifeanyi celaya MD [facility] Work Phone: Start: 05-14-2025 Non-patient / Non-visit Dr. Ifeanyi celaya MD -[facility] Work Phone: Start: 05-13-2025 Non-patient / Non-visit Dr. Ifeanyi celaya MD -[facility] Work Phone: Start: 05-12-2025 Non-patient / Non-visit [facility]. Tarun shanks MD [facility] Start: 05-11-2025 ambulatory Deb Yusuf Facilit y:[facility] Start: 05-11-2025 End: 05-17-2025 Evaluation and management of inpatient Dr. Ifeanyi Shaikh DO -[facility] Work Phone: Start: 05-10-2025 End: 05-10-2025 Refill Deb Yusuf MD Work Phone: [facility] [place] Comment on above: Refill Request Start: 05-08-2025 End: 05-08-2025 Emergency department patient visit Dr. Deb Yusuf MD Work Phone: -Emergency Department Work Phone: Start: 04-12-2025 End: 04-13-2025 Refill Deb Yusuf MD Work Phone: [facility] [place] Comment on above: Refill Request Start: 03-28-2025 End: 03-29-2025 Follow-up encounter Olga Stokes SOCIAL SCIENCE TEACHER.SEAFOOD HARVESTER Work Phone: [facility] [place] Start: 03-14-2025 End: 03-14-2025 ambulatory OLGA STOKES Facility:[facility] Start: 03-14-2025 End: 03-14-2025 Patient encounter procedure Olga Divya SOCIAL SCIENCE TEACHER.SEAFOOD HARVESTER Work Phone: [facility] [place] Comment on above: Generalized OA (Prim chrissie Dx); Fall, initial encounter; Acquired hypothyroidism; Essential hypertension; Mixed hyperlipidemia; Vitamin D deficiency; Encounter for immunization Start: 03-14-2025 End: 03-14-2025 ambulatory OLGA DIVYA Facility:[facility] Start: 02-21-2025 End: 02-21-2025 Dianna Yusuf MD Work Phone: [facility] [place] Comment on above: Refill Request Start: 12-20-2024 End: 12-20-2024 Refill Deb Yusuf MD Work Phone: [facility] [place] Comment on above: Refill Request Start: 11-09-2024 End: 11-09-2024 Refill Deb Yusuf MD Work Phone: [facility] [place] Comment on above: Refill Request Start: 07-13-2024 End: 07-13-2024 ambulatory OLGA STOKES Facility:[facility] Start: 07-13-2024 End: 07-13-2024 Patient encounter procedure Olga Stokes APRN.SEAFOOD HARVESTER Work Phone: [facility] [place] Comment on above: Essential hypertensi on (Primary Dx); Acquired hypothyroidism; Vitamin D deficiency; Mixed hyperlipidemia; Iron deficiency anemia, unspecified iron deficiency anemia type; Generalized OA; Need for influenza vaccination; Need for COVID-19 vaccine; Encounter for screening examination for other mental health and behavioral disorders; Encounter for therapeutic drug monitoring Start: 05-10-2024 Refill Deb rivero MD Work Phone: [facility] [place] Comment on above: Refill Request Start: 04-02-2024 Refill Deb rivero MD Work Phone: [facility] [place] Comment on above: Refill Request Start: 03-10-2024 Telephone encounter Deb small MD Work Phone: [facility] [place] Comment on above: patient update/futur e apt Start: 02-24-2024 Refill Deb rivero MD Work Phone: [facility] [place] Comment on above: Refill Request Start: 01-26-2024 Refill Deb rivero MD Work Phone: [facility] [place] Comment on above: Refill Request Start: 12-29-2023 Refill Farhan Yi Mazariegos roro LEDESMA Work Phone: [facility] [place] Comment on above: Refill Request Start: 12-18-2023 Telephone encounter Deb small MD Work Phone: [facility] [place] Comment on above: Orders Start: 12-01-2023 Telephone encounter Deb small MD Work Phone: [facility] Start: 09-29-2023 Refill Deb rivero MD Work Phone: [facility] [place] Comment on above: Refill Request Start: 06-23-2023 Refill Olga Greener A PRN.SEAFOOD HARVESTER Work Phone: [facility] [place] Comment on above: Refill Request Start: 06-02-2023 Refill Olga Greener A PRN.SEAFOOD HARVESTER Work Phone: [facility] [place] Comment on above: Refill Request Start: 05-28-2023 Refill Deb rivero MD Work Phone: [address] [place] [address] Comment on above: Refill Request Start: 05-08-2023 Refill Deb rivero MD Work Phone: [facility] [place] Comment on above: Refill Request Start: 04-01-2023 Refill Deb rivero MD Work Phone: [facility] [place] Comment on above: Refill Request Start: 11-08-2022 Refill Deb rivero MD Work Phone: [facility] [place] Comment on above: Refill Request Start: 09-02-2022 End: 09-02-2022 Patient encounter procedure Grisel Older SOCIAL SCIENCE TEACHER.SEAFOOD HARVESTER Work Phone: [facility] [place] Comment on above: Partial thickness bu rn of lower extremity, right, initial encounter (Primary Dx) Start: 08-30-2022 Telephone encounter Deb small MD Work Phone: [facility] [place] Comment on above: Patient Update Start: 05-21-2022 End: 05-21-2022 Patient encounter procedure Jaja Kirkpatrick SOCIAL SCIENCE TEACHER.DRAW OPERATOR Work Phone: [facility] [place] Comment on above: Encounter for immuni zation (Primary Dx); Mixed hyperlipidemia; Dysmetabolic syndrome X; Vitamin D deficiency; Acquired hypothyroidism; Essential hypertension; Peptic ulcer; Coronary artery disease involving ak chin coronary artery of 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 Deb Yusuf MD Work Phone: [facility] Procedures Date Procedure Procedure Detail Performing Clinician Start: 05-16-[address] Deb Yusuf MD Work Phone: Start: 05-16-2025 Serum inorganic phos phate measurement Dr. Deb Yusuf MD Work Phone: Start: 05-13-2025 Measurement of occul t blood in stool specimen using immunoassay Dr. Deb Yusuf MD Work Phone: Start: 05-11-2025 Osmolality measureme nt, serum Dr. Deb Yusuf MD Work Phone: Start: 05-11-2025 Computed tomography of abdomen and pelvis with intravenous contrast Dr. Deb Yusuf MD Work Phone: Start: 05-11-2025 Urnls dip stick/tabl et reagent auto microscopy Dr. Deb Yusuf MD Work Phone: Start: 05-11-2025 CT of head without contrast Dr. Deb Yusuf MD Work Phone: Start: 05-11-[address] Deb Yusuf MD Work Phone: Start: 05-11-2025 Total iron binding c apacity measurement Dr. Deb Yusuf MD Work Phone: Start: 05-11-[address] Deb Yusuf MD Work Phone: Start: 05-08-2025 Plain X-ray of shoulder Dr. Deb Yusuf MD Work Phone: Start: 07-13-2024 PFIZER-BIONTECH COVI D-19 VACCINE AGE 12+ YR Olga Stokes SEAFOOD HARVESTER Work Phone: Start: 03-27-2017 End: 03-27-2017 Documentation [...] Start: 03-05-2017 End: 03-06-2017 Chiropractic manipulation Daisy B Dossi DC Work Phone: Start: 03-03-2017 End: 03-03-2017 Dietary management education, guidance, and counseling Daisy Dossi DC Start: 03-03-2017 End: 03-03-2017 Chiropractic manipulation Daisy B Dossi DC Work Phone: Start: 03-03-2017 End: 03-03-2017 X-ray exam of lower spine Daisy B Dossi DC Work Phone: Plan of Treatment Date Care Activity Detail Author Start: 03-14-2028 Diabetes Screening Diabetes Screening [facility] Start: 10-28-2026 Diabetes Screening Diabetes Screening [facility] Start: 03-14-2026 Hepatitis B surface antibody level LDL Cholesterol [facility] Start: 12-27-2025 Anxiety Screening Anxiety Screening [facility] Start: 07-13-2025 Annual PCP Team Chronic Disease Visit Annual PCP Team Chronic Disease Visit [facility] Start: 06-27-2025 [facility] Start: 05-21-2025 DIABETES SCREEN DIABETES SCREEN [facility] Start: 05-21-2025 Diabetes Screening Diabetes Screening [facility] Start: 05-17-2025 Patient discharge [facility] Start: 05-17-2025 Wound care [facility] Start: 05-16-2025 End: 05-16-2025 Patient encounter procedure 05/16/2025 1:40 PM EDT Office Visit [facility] [place] [address] [place] [address] Jaja Kirkpatrick, VLAD.DRAW OPERATOR [address] [place] [address] 2 month follow up [facility] [place] Comment on above: 2 month follow up Start: 05-12-2025 Care planning and problem solving actions [facility] Start: 05-12-2025 Consultation [facility] Start: 05-12-2025 Consultation for treatment [facility] Start: 05-11-2025 Application of intermittent pneumatic compression device [facility] Start: 05-11-2025 Following clinical pathway protocol [facility] Start: 05-11-2025 Assessment of risk of venous thromboembolism [facility] Start: 05-11-2025 Documentation procedure [facility] Start: 05-11-2025 Insertion of catheter into peripheral vein [facility] Start: 05-11-2025 Measuring intake and output [facility] Start: 05-11-2025 Providing care according to standard [facility] Start: 05-11-2025 Provision of activity privileges [facility] Start: 05-11-2025 Referral to occupational therapist [facility] Start: 05-11-2025 Referral to service [facility] Start: 05-11-2025 [facility] Start: 05-11-2025 Computed tomography of abdomen and pelvis with intravenous contrast Abdomen/Pelvis W IV Cont ONLY [facility] Start: 05-11-2025 CT Abdomen and Pelvis W contrast IV [facility] Start: 05-11-2025 Measurement of occult blood in stool specimen using immunoassay [facility] Start: 05-11-2025 Osmolality measurement, serum [facility] Start: 05-11-2025 Osmolality of Urine [facility] Start: 05-11-2025 Verification routine [facility] Start: 05-11-2025 Admission procedure [facility] Start: 05-11-2025 Hospital admission, emergency, from emergency room, medical nature [facility] Start: 05-11-2025 [facility] Start: 05-11-2025 Consultation [facility] Start: 05-11-2025 End: 05-11-2025 [facility] Start: 05-11-2025 Thyroid stimulating hormone measurement [facility] Start: 05-11-2025 Bacteria identified in Blood by Culture Blood Culture [facility] Start: 05-11-2025 Patient referral to dietitian [facility] Start: 05-08-2025 [facility] Start: 05-08-2025 Emergency department visit high/urgent severity EMERGENCY DEPT VISIT MOD MDM [facility] Start: 03-14-2025 End: 03-14-2025 Patient encounter procedure 03/14/2025 2:00 PM EDT Office Visit [facility] [place] [address] [place] [id number] Olga Stokes SOCIAL SCIENCE TEACHER.SEAFOOD HARVESTER [address] [place] [id number] 6m f/u [facility] [place] Comment on above: 6m f/u Start: 02-01-2025 End: 02-01-2025 Patient encounter procedure 02/01/2025 2:00 PM EDT Office Visit [facility] [place] [address] [place] [id number] Olga Stokes APRN.SEAFOOD HARVESTER [address] [place] [address] 6m f/u [facility] [place] Comment on above: 6m f/u Start: 01-10-2025 End: 01-10-2025 Patient encounter procedure 01/10/2025 4:20 PM EDT Office Visit [facility] [place] [address] [place] [address] [id number] Deb Yusuf MD [address] [place] [address] 6 month follow up [facility] [place] Comment on above: 6 month follow up Start: 01-10-2025 Covid-19 Vaccine ( season) Covid-19 Vaccine ( season) [facility] Start: 12-27-2024 End: 03-28-2025 25-hydroxyvitamin D3 [Mass/volume] in Serum or Plasma VITAMIN D 25 HYDROXY Lab Routine Vitamin D deficiency Expected: 12/27/2024, Expires: 03/28/2025 [facility] Comment on above: Expected: 12/27/2024, Expires: Start: 12-27-2024 End: 03-28-2025 CBC W Auto Differential panel - Blood COMPLETE BLOOD COUNT AND DIFFERENTIAL Lab Routine Encounter for therapeutic drug monitoring Iron deficiency anemia, unspecified iron deficiency anemia type Expected: 12/27/2024, Expires: 03/28/2025 [facility] Work Phone: Comment on above: Expected: 12/27/2024, Expires: Start: 12-27-2024 End: 03-28-2025 Comprehensive metabolic 2000 panel - Serum or Plasma COMPREHENSIVE METABOLIC PANEL Lab Routine Encounter for therapeutic drug monitoring Expected: 12/27/2024, Expires: 03/28/2025 [facility] Comment on above: Expected: 12/27/2024, Expires: Start: 12-27-2024 End: 03-28-2025 Ferritin [Mass/volume] in Serum or Plasma FERRITIN Lab Routine Iron deficiency anemia, unspecified iron deficiency anemia type Expected: 12/27/2024, Expires: 03/28/2025 [facility] Comment on above: Expected: 12/27/2024, Expires: Start: 12-27-2024 End: 03-28-2025 Iron and Iron binding capacity panel - Serum or Plasma IRON AND TIBC Lab Routine Iron deficiency anemia, unspecified iron deficiency anemia type Expected: 12/27/2024, Expires: 03/28/2025 [facility] Comment on above: Expected: 12/27/2024, Expires: Start: 12-27-2024 End: 03-28-2025 LIPID PANEL, NONFASTING LIPID PANEL, NONFASTING Lab Routine Mixed hyperlipidemia Expected: 12/27/2024, Expires: 03/28/2025 [facility] Comment on above: Expected: 12/27/2024, Expires: Start: 12-27-2024 End: 03-28-2025 Thyrotropin [Units/volume] in Serum or Plasma THYROID STIMULATING HORMONE Lab Routine Acquired hypothyroidism Expected: 12/27/2024, Expires: 03/28/2025 [facility] Comment on above: Expected: 12/27/2024, Expires: Start: 12-27-2024 End: 03-28-2025 Thyroxine (T4) free [Mass/volume] in Serum or Plasma T4 FREE/FREE THYROXINE Lab Routine Acquired hypothyroidism Expected: 12/27/2024, Expires: 03/28/2025 [facility] Comment on above: Expected: 12/27/2024, Expires: Start: 12-27-2024 End: 03-28-2025 Triiodothyronine (T3) Free [Mass/volume] in Serum or Plasma T3, FREE Lab Routine Acquired hypothyroidism Expected: 12/27/2024, Expires: 03/28/2025 [facility] Comment on above: Expected: 12/27/2024, Expires: Start: 10-28-2024 Annual PCP Team Chronic Disease Visit Annual PCP Team Chronic Disease Visit [facility] Start: 10-28-2024 Hepatitis B surface antibody level LDL Cholesterol [facility] Start: 10-27-2024 Advance Directive Discussion Advance Directive Discussion [facility] Start: 10-27-2024 Medicare Advantage Annual Wellness Visit Medicare Advantage Annual Wellness Visit [facility] Start: 07-13-2024 End: 07-13-2024 Patient encounter procedure 07/13/2024 2:00 PM EDT Office Visit [facility] [place] [address] [place], [place] [id number] Olga Stokes APRN.SEAFOOD HARVESTER [address] [place], [place] [id number] follow up hypertension/med check [facility] [place] Comment on above: follow up hypertension/med check Start: 06-27-2024 Influenza vaccination Influenza Vaccine (#1) [facility] Start: 03-26-2024 End: 03-26-2024 Patient encounter procedure 03/26/2024 3:40 PM EDT Office Visit [facility] [place] [address] [place] [address] Deb Yusuf MD [address] [place], [place] [id number] follow up [facility] [place] Comment on above: follow up Start: 03-22-2024 DIABETES SCREEN DIABETES SCREEN [facility] Start: 02-26-2024 Covid-19 Vaccine () Covid-19 Vaccine () [facility] Start: 10-27-2023 SHINGRIX VACCINE (1 of 2) SHINGRIX VACCINE (1 of 2) [facility] Comment on above: Postponed from 1993 (Insurance Cov erage) Start: 10-27-2023 Urine microalbumin profile [facility] Comment on above: Postponed from 11/23/2013 (Insurance Cov erage) Start: 09-02-2023 ANNUAL PCP TEAM CHRONIC DISEASE VISIT ANNUAL PCP TEAM CHRONIC DISEASE VISIT [facility] Start: 09-02-2023 BP CONTROLLED (<130/80) BP CONTROLLED (<130/80) [facility] Start: 06-27-2023 Covid-19 Vaccine () Covid-19 Vaccine () [facility] Start: 06-27-2023 Influenza vaccination [facility] Start: 05-21-2023 BP CONTROLLED (<130/80) BP CONTROLLED (<130/80) [facility] Start: 05-21-2023 Hepatitis B surface antibody level LDL CHOLESTEROL [facility] Start: 05-18-2023 COVID-19 VACCINE (5 - Pfizer series) COVID-19 VACCINE (5 - Pfizer series) [facility] Start: 10-27-2022 ADVANCE DIRECTIVE DISCUSSION ADVANCE DIRECTIVE DISCUSSION [facility] Start: 09-21-2022 COVID-19 VACCINE (4 - Booster for Pfizer series) COVID-19 VACCINE (4 - Booster for Pfizer series) [facility] Start: 07-16-2022 COVID-19 VACCINE (4 - Booster for Pfizer series) COVID-19 VACCINE (4 - Booster for Pfizer series) [facility] Start: 06-27-2022 Influenza vaccination [facility] Start: 06-05-2022 ANNUAL PCP TEAM CHRONIC DISEASE VISIT ANNUAL PCP TEAM CHRONIC DISEASE VISIT [facility] Start: 06-05-2022 SHINGRIX VACCINE (1 of 2) SHINGRIX VACCINE (1 of 2) [facility] Comment on above: Postponed from 1993 (Insurance Cov erage) Start: 06-05-2022 Urine microalbumin profile DTAP,TDAP,TD (1 - Tdap) [facility] Comment on above: Postponed from 11/23/2013 (Insurance Cov erage) Start: 05-21-2022 End: 07-21-2022 Comprehensive metabolic 2000 panel - Serum or Plasma [facility] Work Phone: Comment on above: Expected: 05/21/2022, Expires: 2 Start: 05-21-2022 End: 07-21-2022 Hemoglobin A1c in Blood [facility] Work Phone: Comment on above: Expected: 05/21/2022, Expires: 2 Start: 05-21-2022 End: 07-21-2022 Lipid 1996 panel - Serum or Plasma [facility] Work Phone: Comment on above: Expected: 05/21/2022, Expires: 2 Start: 05-21-2022 End: 07-21-2022 Magnesium [Mass/volume] in Serum or Plasma [facility] Work Phone: Comment on above: Expected: 05/21/2022, Expires: 2 Start: 05-21-2022 End: 07-21-2022 Thyrotropin [Units/volume] in Serum or Plasma [facility] Work Phone: Comment on above: Expected: 05/21/2022, Expires: 2 Start: 05-21-2022 End: 07-21-2022 Thyroxine (T4) free [Mass/volume] in Serum or Plasma [facility] Work Phone: Comment on above: Expected: 05/21/2022, Expires: 2 Start: 10-27-2021 ADVANCE DIRECTIVE DISCUSSION ADVANCE DIRECTIVE DISCUSSION [facility] Start: 07-29-2021 COVID-19 VACCINE (3 - Booster for Pfizer series) COVID-19 VACCINE (3 - Booster for Pfizer series) [facility] Start: 05-04-2021 Hepatitis B surface antibody level LDL CHOLESTEROL [facility] Start: 2018 RSV Vaccine (1 - 1-dose 75+ series) RSV Vaccine (1 - 1-dose 75+ series) [facility] Start: 03-27-2017 End: 03-27-2017 Appointment Appointment [facility] [...] Phone: Start: 03-11-2017 End: 03-11-2017 Appointment Appointment [facility] Work Phone: Start: 03-11-2017 End: 03-11-2017 Appointment Appointment [facility] Work Phone: Start: 03-11-2017 End: 03-11-2017 Follow up Appt 2x/week Follow up Appt 2x/week [facility] Work Phone: Start: 03-10-2017 End: 03-10-2017 Appointment Appointment [facility] Work Phone: Start: 03-10-2017 End: 03-10-2017 Appointment Appointment [facility] Work Phone: Start: 03-10-2017 End: 03-10-2017 Follow up Appt 3x/week Follow up Appt 3x/week [facility] Work Phone: Start: 03-05-2017 End: 03-06-2017 Follow up Appt 2x/week Follow up Appt 2x/week [facility] Work Phone: Start: 03-03-2017 End: 03-03-2017 Appointment Appointment [facility] Work Phone: Start: 03-03-2017 End: 03-03-2017 Follow up Appt 3x/week Follow up Appt 3x/week [facility] Work Phone: Start: 11-23-2013 Urine microalbumin profile [facility] Start: 08-02-2013 End: 08-02-2013 Ct maxillofacial w/o dye CT Sinuses [facility] Work Phone: Start: 08-02-2013 End: 08-02-2013 MRSA presence *MRSAD - M R Staph Aureus DNA by PCR [facility] Work Phone: Start: 2003 RSV Vaccine (1 - 1-dose 60+ series) RSV Vaccine (1 - 1-dose 60+ series) [facility] Start: 1993 SHINGRIX VACCINE (1 of 2) SHINGRIX VACCINE (1 of 2) [facility] Start: 1961 Anxiety Screening Anxiety Screening [facility] Start: 1961 BP CONTROLLED (<130/80) BP CONTROLLED (<130/80) [facility] Folate [Moles/volume ] in Serum or Plasma [facility] Hemoglobin A1c/Hemoglobin.total in Blood [facility] Iron [Mass/mass] in Unspecified specimen [facility] Magnesium measurement [facility] Patient Education ED Fracture, Shoulder [facility] Work Phone: PFIZER-BIONTECH COVI D-19 VACCINE AGE 12+ YR (COMIRNATY) PFIZER-BIONTECH COVID-19 VACCINE AGE 12+ YR (COMIRNATY) Immunization/Injection Routine Encounter for immunization 1 Occurrences starting 03/14/2025 [facility] Work Phone: Comment on above: 1 Occurrences starting 03/14/2025 [facility] Immunizations Immunization Date Immunization Notes Care Provider [facility] 07-13-2024 COVID-19 vaccine, ag e 12+ yr (PFIZER-BIONTECH) Olga Stokes APRN.SEAFOOD HARVESTER Work Phone: [facility] 07-13-2024 influenza, high dose seasonal, preservative-free Olga Stokes SOCIAL SCIENCE TEACHER.SEAFOOD HARVESTER Work Phone: [facility] 07-13-2024 influenza virus vacc ine, unspecified formulation Deb Yusuf MD Work Phone: [facility] 10-28-2023 COVID-19 vaccine, ag e 12+ yr, season (PFIZER-BIONTECH) Deb Yusuf MD Work Phone: [facility] 10-28-2023 influenza (HD-IIV4) vaccine, age 65+ yr, high dose, quadrivalent, PF (FLUZONE HIGH-DOSE) Deb Yusuf MD Work Phone: [facility] 10-28-2023 influenza virus vacc ine, unspecified formulation Deb Yusuf MD Work Phone: [facility] 01-16-2023 COVID-19 vaccine, ag e 12+ yr, bivalent (PFIZER-BIONTECH) Deb Yusuf MD Work Phone: [facility] Work Phone: 01-16-2023 influenza (HD-IIV4) vaccine, age 65+ yr, high dose, quadrivalent, PF (FLUZONE HIGH-DOSE) Deb Yusuf MD Work Phone: [facility] Work Phone: 01-16-2023 influenza virus vacc ine, unspecified formulation Deb Yusuf MD Work Phone: [facility] 05-21-2022 Covid (Pfizer) Dr. Deb ashley MD Work Phone: [facility] 05-21-2022 COVID-19 vaccine, ag e 12+ yr (PFIZER-BIONTECH - JANE TOP) Jaja Kirkpatrick APRN.DRAW OPERATOR Work Phone: [facility] 02-26-2021 Covid (Pfizer) Dr. Deb ashley MD Work Phone: [facility] 02-04-2021 Covid (Pfizer) Dr. Deb ashley MD Work Phone: [facility] 07-25-2020 influenza, high-dose , quadrivalent vaccine (FLUZONE HIGH DOSE QUADRIVALENT) Deb Yusuf MD Work Phone: [facility] Work Phone: 07-24-[address] Deb Yusuf MD Work Phone: [facility] 07-24-2020 influenza, seasonal, injectable, preservative free Deb Yusuf MD Work Phone: [facility] Work Phone: 07-29-2018 Seasonal trivalent influenza vaccine, adjuvanted, preservative free Deb Yusuf MD Work Phone: [facility] 07-27-[address] Deb Yusuf MD Work Phone: [facility] 07-27-2018 influenza, seasonal, injectable, preservative free Deb Yusuf MD Work Phone: [facility] Work Phone: 07-29-2017 influenza, injectabl e, quadrivalent, preservative free Olga Greneerica OLIVAREZSEAFOOD HARVESTER Work Phone: [facility] 08-05-2016 influenza, high dose seasonal, preservative-free Deb Yusuf MD Work Phone: [facility] 07-29-2016 influenza, high dose seasonal, preservative-free Dr. Deb Yusuf MD Work Phone: [facility] 09-06-2015 influenza, injectabl e, quadrivalent, preservative free Dr. Deb Yusuf MD Work Phone: [facility] 09-06-2015 influenza, seasonal, injectable Deb Yusuf MD Work Phone: [facility] 08-21-2015 influenza, injectabl e, quadrivalent, preservative free Dr. Deb Yusuf MD Work Phone: [facility] 08-21-2015 influenza, seasonal, injectable, preservative free Deb Yusuf MD Work Phone: [facility] Work Phone: 07-11-2015 pneumococcal conjuga te vaccine, 13 valluanne Yusuf MD Work Phone: [facility] 12-26-2014 pneumococcal conjuga te vaccine, 13 valent Deb Yusuf MD Work Phone: [facility] 09-03-2014 influenza, injectabl e, quadrivalent, preservative free Dr. Deb Yusuf MD Work Phone: [facility] 09-03-2014 influenza, seasonal, injectable Deb Yusuf MD Work Phone: [facility] 11-22-2013 tetanus and diphther ia toxoids, adsorbed, preservative free, for adult use (2 Lf of tetanus toxoid and 2 Lf of diphtheria toxoid) Deb Yusuf MD Work Phone: [facility] 08-27-[address] Deb Yusuf MD Work Phone: [facility] 08-27-2013 influenza virus vacc ine, unspecified formulation Deb Yusuf MD Work Phone: [facility] Work Phone: 08-04-2012 influenza virus vacc ine, unspecified formulation Deb Yusuf MD Work Phone: [facility] 01-19-2012 pneumococcal polysaccharide vaccine, 23 valent Deb Yusuf MD Work Phone: [facility] 01-19-2012 pneumococcal vaccine , unspecified formulation Dr. Deb Yusuf MD Work Phone: [facility] 09-19-2010 influenza virus vacc ine, unspecified formulation Deb Yusuf MD Work Phone: [facility] Work Phone: 09-19-2010 pneumococcal polysaccharide vaccine, 23 valent Deb Yusuf MD Work Phone: [facility] Work Phone: 08-09-2009 influenza virus vacc ine, unspecified formulation Deb Yusuf MD Work Phone: [facility] Work Phone: 09-03-2005 influenza virus vacc ine, unspecified formulation Deb Yusuf MD Work Phone: [facility] Work Phone: Payers Date Payer Category Payer Self-pay 2021 Medicaid [id number] 2021 Medicare [facility] MEDICARE [employer] [facility] MEDICARE [id number] 2021-Present [phone] [address] [place] [address] Medicare [id number] 2021 Medicare (Managed Care) [employer] MEDICARE [id number] 2021 Medicare [id number] 2019 Medicare [id number] 2013 Medicare [id number] 2013 Medicaid [id number] Unknown [id number] 462 Unknown [id number] 462 Unknown [id number]. 462 Unknown [id number]. 462 Unknown [id number]. 462 Unknown [id number]. 462 Unknown [id number]. 462 Unknown [id number]. 462 Unknown [id number]. 462 Unknown [id number] 462 Social History Date Type Detail Facility Start: 03-27-2012 End: 05-11-2025 Tobacco smoking status NHIS Ex-smoker [facility] Work Phone: Start: 10-27-1962 End: 10-27-1982 History of tobacco use Current smoker [facility] Work Phone: Start: 10-27-1962 End: 10-27-1982 History of tobacco use Cigarette Smoker [facility] Work Phone: Start: 07-02-2021 End: 03-14-2025 Alcohol intake Current non-drinker of alcohol (finding) [facility] Start: 1945 Sex Assigned At Not on file [facility] Start: 11-03-2021 End: 12-03-2021 Exposure to SARS-CoV-2 (event) Not sure [facility] Start: 03-27-2012 End: 10-28-2023 Cigarettes smoked current (pack per day) - Reported 1 [facility] Start: 03-27-2012 End: 03-14-2025 Tobacco use and exposure Smokeless tobacco non-user [facility] Start: 01-16-2023 End: 10-28-2023 Tobacco use panel [facility] National Score (1-10 0), lower number is lower risk 64 [facility] Start: 09-05-2022 Alcohol Alcohol [facility] Start: 11-08-2020 Drugs Drugs [facility] Start: 11-08-2020 Lives Lives [facility] Start: 11-08-2020 Tobacco Use Tobacco Use [facility] Start: 1945 Sex Assigned At Female W 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 MODULAR HIP SYSTEM FDA Start: 08-11-2020 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ATIONIST MODULAR HIP SYSTEM FDA Start: 08-11-2020 Revision [...] of uncemented total hip replacement RESTOR ADM/MDM [id number] FDA Start: 08-11-2020 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 MODULAR HIP SYSTEM FDA Start: 08-11-2020 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ATIONIST MODULAR HIP SYSTEM FDA Start: 08-11-2020 Revision [...] of uncemented total hip replacement RESTOR ADM/MDM [id number] FDA Start: 08-11-2020 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 MODULAR HIP SYSTEM FDA Start: 08-11-2020 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ATIONIST MODULAR HIP SYSTEM FDA Start: 08-11-2020 6.5 HEX SCREW FDA Start: 08-02-2020 STEM FDA Start: 08-02-2020 christianity adm/ mdm x3 insert FDA Start: 08-02-2020 [...] FDA Start: 08-02-2020 STEM FDA Start: 08-02-2020 christianity adm/ mdm x3 insert FDA Start: 08-02-2020 [...] FDA Start: 08-02-2020 STEM FDA Start: 08-02-2020 christianity adm/ mdm x3 insert FDA Start: 08-02-2020 [...] goal Functional Status Date Assessment Result Facility 05-17-2025 Functional status Bedrest [facility] Work Phone: 04-11-2015 Are you deaf, or do you have serious difficulty hearing No 04/11/2015 11:44 AM Catherine Dominguez LPN No [facility] 04-11-2015 Do you have serious difficulty walking or climbing stairs No 04/11/2015 11:44 AM EDCatherine Cotto LPN No [facility] 04-11-2015 Do you have difficul ty dressing or bathing No 04/11/2015 11:44 AM Catherine Dominguez LPN No [facility] 04-11-2015 Because of a physica l, mental, or emotional condition, do you have difficulty doing errands alone such as visiting a physician's office or shopping No 04/11/2015 11:44 AM Catherine Dominguez LPN No [facility] 12-26-2014 Are you blind, or do you have serious difficulty seeing, even when wearing glasses No 12/26/2014 2:33 PM EST Catherine Hurley LPN No [facility] Mental Status Date Assessment Result Facility 05-17-2025 Cognitive function Voice/Name [facility] Work Phone: 05-11-2025 Cognitive function Level Of Cons ciousness Awake;Alert;Appropriate [facility] Work Phone: 04-11-2015 Because of a physica l, mental, or emotional condition, do you have serious difficulty concentrating, remembering, or making decisions No 04/11/2015 11:44 AM Catherine Dominguez LPN No [facility] Clinical Notes 01-03-2022 to 05-17-2025 Note Date & Type Note Facility 05-17-2025 Hospital Discharg e instructions Additional Instructions Date of Discharge: 05/17/25 [facility] Work Phone: 05-17-2025 Discharge summary [facility] 05-17-2025 Note [facility] Medical Records Department [address] [place] [address] Discharge Summary 05/17/25 1348 MR#: [id number] Acct: [id number] Name: KATH ARRIAGA Rep #: [id number] : 1945 79 From: Steffen Crowley DO PCP: Dr. Deb Yusuf MD Status:DIS IN Location: [facility] [id number] Providers Date of Admission: 05/11/25 Date of Discharge: 05/17/25 Primary Care Physician: Dr. Deb Yusuf MD Consultations 05/12/25 04:33 Consult: Onc/Wound/transportation engineer Routine Comment: Reason for Consult:: [place] on right breast and abdomen. 05/12/25 07:40 Consult: Orthopedics Routine Consulting Provider: Tarun Cheng Reason for Consult: Right femoral fracture EMERGENT Consult: No MD Notified: Yes Date Notified: 05/12/25 Time Notified: 08:44 Method of Notification: Verbal Comments:: see patient this a.m. must have been notified byanother Reason For Visit: HIGHLY ELEVATED BUN/CREATININE RATIO, LEUKOCYTOSIS Diagnosis Discharge Diagnosis (1) Generalized weakness: Status: Acute Code(s): R53.1 - Weakness (2) Closed fracture of right proximal humerus: Status: Acute Code(s): S42.201A - Unspecified fracture of upper end of right humerus, initial encounter for closed fracture Plan 1. Acute debility-PT and OT are continuing to work with the patient, we are waiting for approval for the patient to go to a skilled facility #2 recent right humeral fracture (05/08/2025) with debility-PT and OT will continue to work with the patient, again she will need to go to a [facility] facility for short-term rehab services. #3 hyponatremia-corrected at this time #4 anemia-etiology unclear, patient's hemoglobin remained stable at this time #5 essential hypertension-patient will remain on her present medication #6 hypothyroidism-patient is on Synthroid #7 chronic depression-patient is on Cymbalta #8 obstructive sleep apnea-patient uses CPAP at night Total clinical time spent by myself addressing patient's medical issues, reviewing all of her data, and collaborating with patient's care team: 35 minutes Medications at Discharge Home Medications levothyroxine 75 mcg tablet 75 mcg PO DAILY thyroid 12/23/13 losartan 50 mg tablet 50 mg PO DAILY bp 03/15/19 diphenhydramine HCl 25 mg capsule (Benadryl) 25 mg PO QDAY PRN allergies 07/12/19 duloxetine 60 mg capsule,delayed release 60 mg PO DAILY depression 07/13/19 acetaminophen 500 mg tablet 1,000 mg PO Q8H PRN Pain 1-10 Or Fever 08/15/20 calcium 500 mg (as carbonate)-vitamin D3 5 mcg (200 unit) tablet 1 tab PO BIDCM 08/30/20 esomeprazole magnesium 40 mg capsule,delayed release 40 mg PO 0600,1700 08/30/20 rosuvastatin 10 mg tablet 10 mg PO DAILY cholesterol #90 tabs 05/06/24 amkehsa-mkbtfzchuojrt-bweejnmd 250 mg-250 mg-65 mg tablet (Excedrin Extra Strength) 1 tab PO Q6H PRN headache 05/11/25 cyanocobalamin (vitamin B-12) 1,000 mcg tablet,extended release (Vitamin B-12 ER) 3,000 mcg PO DAILY supplement 05/11/25 gabapentin 100 mg capsule 100 mg PO BID 05/11/25 loperamide 2 mg capsule (Anti-Diarrheal (loperamide)) 2 mg PO Q6H PRN diarrhea 05/11/25 hydrocodone-acetaminophen 5-325mg 5mg-325mg 1 tab PO Q6H PRN PRN Pain Score 6-10 3 days #10 tabs 05/17/25 menthol 0.44 %-zinc oxide 20.6 % topical ointment (Calmoseptine) 1 applic topical BID #0 grams 05/17/25 nystatin 100,000 unit/gram topical powder 1 applic topical BID #0 grams 05/17/25 pantoprazole 40 mg tablet,delayed release 40 mg PO DAILY #0 tabs 05/17/25 polysaccharide iron complex 150 mg iron capsule (Ferrex) 150 mg PO DAILY #0 caps 05/17/25 Hospital Course Operations None Procedures None Summary of Care Provided Minutes Spent on Discharge: 31 Hospital Course: This 79-year-old white female was seen in the emergency room at [facility] due to inability to perform ADLs at home due to a recent right humeral fracture. Patient was unable to take care of herself at home. Patient's labs were remarkable for a sodium of 129-she had a previous known history of SIADH-BUN was elevated at 59 with a normal serum creatinine. Patient was seen in consultation by orthopedic surgery who requested the patient to follow-up after discharge from the hospital. She was seen by PT and OT, it was recommended that the patient go to a [facility] facility for further care. On 05/17/2025, patient was seen and examined:alert and no apparent distress General Appearance: cooperative, well kempt and well developed Orientation / Consciousness: awake, oriented to person and oriented to place HEENT normocephalic, head/scalp atraumatic and moist oral mucous membranes HEENT Narrative: Patient is extremely hard of hearing Eyes PERRL, EOMs intact bilaterally and conjunctivae normal Neck supple, no JVD, thyroid normal and no carotid bruits General: trachea midline Resp normal respiratory (more content not included)... [facility] 05-16-2025 Progress note Note Date/Time May 16, 2025 7:00pm [facility] Medical Records Department [address] [place] [address] Progress Note - Hospitalist 05/16/25 185 MR#: [id number] Acct: [id number] Name: KATH ARRIAGA Rep #:[id number] : 1945 79 From: Steffen Crowley DO PCP: Dr. Deb Yusuf MD Status:AD M IN [id number] Reason for Visit Chief Complaint: Generalized Weakness with Inability to Care for Herself at Home. Subjective Subjective Patient was seen and examined today, she is hard to communicate with due to severe hearing loss. We are currently awaiting approval for the patient to go to a skilled facility for inpatient rehab services. Objective Data Objective Data Vital Signs: Vital Signs Temp Pulse Resp BP Pulse Ox O2 Del Method O2 Flow Rate 98.2 F 87 17 133/72 H 96 Room Air 100 05/16/25 16:00 05/16/25 16:00 05/16/25 16:00 05/16/25 16:05/16/25 16:00 05/16/25 16:05/13/25 14:13 Oxygen Flow Rate (L/min) 100 Oxygen Delivery Method Room Air Weight: 94.7 kg Body Mass Index (BMI) 35.6 Intake & Output: Intake and Output for Last 24 Hours 07/05/15/25 05/16/25 23:59 23:59 23:59 Intake Total 920 / 920 1800 / 1800 1380 / 1380 Output Total 1600 / 1600 2900 / 2900 1900 / 1900 Balance -680 / -680 -1100 / -1100 -520 / -520 Lab / Micro Data 05/16/25 06:33 05/16/25 06:33 Labs: Laboratory Results - last 24 hr 05/16/25 06:33: WBC 6.2, RBC 2.66 L, Hgb 8.2 L, Hct 25.4 L, MCV 95.5, MCH 30.8, MCHC 32.3, RDW Std Deviation 49.9 H, RDW Coeff of Papo 14.7 H, Plt Count 249, MPV9.0, Immature Gran % (Auto) 1.100 H, Neut % (Auto) 61.1, Lymph % (Auto) 17.4 L, [place] % (Auto) 11.8 H, Eos % (Auto) 8.1 H, Baso % (Auto) 0.5, Absolute Neuts (auto) 3.8, Absolute Lymphs (auto) 1.08, Nucleated RBC % 0, Sodium 135, Potassium 4.3, Chloride 100, Carbon Dioxide 25.7, Anion Gap 9, BUN 21 H, Creatinine 0.54 L, Estim Creat Clear Calc 61.56, Est GFR (MDRD) Non-Af 93, BUN/Creatinine Ratio 38.9 H, Glucose 91, Calcium 9.0, Phosphorus 3.2, Magnesium 1.9 Micro: Microbiology 05/11/25 23:59 Blood Culture (Wb) - Anticubital Left Blood Culture - Preliminary No growth in 48 hours. 05/11/25 17:31 Blood Culture (Wb) - Left Forearm Blood Culture - Preliminary No growth in 48 hours. 05/13/25 12:00 Stool Stool Occult Blood (MARINA) - Final Occult Blood Positive Physical Exam Const alert and no apparent distress General Appearance: cooperative, well kempt and well developed Orientation / Consciousness: awake, oriented to person and oriented to place HEENT normocephalic, head/scalp atraumatic and moist oral mucous membranes HEENT Narrative: Patient is extremely hard of hearing Eyes PERRL, EOMs intact bilaterally and conjunctivae normal Neck supple, no JVD, thyroid normal and no carotid bruits General: trachea midline Resp normal respiratory effort, no retractions, no use of accessory muscles and clearto auscultation bilaterally Auscultation: Negative for rales, rhonchi or wheezes Cardio regular rate, regular rhythm, S1 normal heart sound, S2 normal heart sound, no murmurs, no rub and no gallops GI normal to inspection, nondistended, normoactive bowel sounds, soft to palpation,non-tender and non-distended Extremity no clubbing, cyanosis or edema Skin no rashes or lesions noted General Skin Exam: no breakdown Neuro CN's II-XII intact bilaterally, moves all extremities, no focal motor deficits and no sensory deficits noted Sensorium / Orientation: awake, alert, oriented to person and oriented to place Speech: speech normal Psych affect normal Assessment & Plan Assessment/Plan (1) Generalized weakness: PLAN: Plan 1. Acute debility-PT and OT are continuing to work with the patient, we are waiting for approval for the patient to go to a skilled facility #2 recent right humeral fracture (05/08/2025) with debility-PT and OT will continue to work with the patient, again she will need to go to a [facility] facility for short-term rehab services. #3 hyponatremia-corrected at this time #4 anemia-etiology unclear, patient's hemoglobin remained stable at this time #5 essential hypertension-patient will remain on her present medication #6 hypothyroidism-patient is on Synthroid #7 chronic depression-patient is on Cymbalta #8 obstructive sleep apnea-patient uses CPAP at night Total clinical time spent by myself addressing patient's medical issues, reviewing all of her data, and collaborating with patient's care team: 35 minutes Charges/Coding Visit Charges Inpatient E&M: 07042 Subs Hosp L2 Date medically ready for discharge: 05/14/25 Reason for DC delay: Precert pending from insurance 05/16/25 1900 <Electronically signed by Steffen Crowley DO> Cosigner Signature (if applicable): CC: ~ Signed [facility] Work Phone: 1(577) 252-385707-21-2025 Progress note [facility] Medical Records Department [address] [place] [address] Progress Note - Hospitalist 05/16/25 185 MR#: [id number] Acct: [id number] Name: KATH ARRIAGA Rep #:[id number] : 1945 79 From: Steffen Crowley DO PCP: Dr. Deb Yusuf MD Status:AD M IN Location: [facility] [id number] Reason for Visit Chief Complaint: Generalized Weakness with Inability to Care for Herself at Home. Subjective Subjective Patient was seen and examined today, she is hard to communicate with due to severe hearing loss. Weare currently awaiting approval for the patient to go to a skilled facility for inpatient rehab services. Objective Data Objective Data Vital Signs: Vital Signs Temp Pulse Resp BP Pulse Ox O2 Del Method O2 Flow Rate 98.2 F 87 17 133/72 H 96 Room Air 100 05/16/25 16:00 05/16/25 16:00 05/16/25 16:00 05/16/25 16:00 05/16/25 16:00 05/16/25 16:00 05/13/25 14:13 Oxygen Flow Rate (L/min) 100 Oxygen Delivery Method Room Air Weight: 94.7 kg Body Mass Index (BMI) 35.6 Intake & Output: Intake and Output for Last 24 Hours 05/14/25 05/15/25 05/16/25 23:59 23:59 23:59 Intake Total 920 / 920 1800 / 1800 1380 / 1380 Output Total 1600 / 1600 2900 / 2900 1900 / 1900 Balance -680 / -680 -1100 / -1100 -520 / -520 Lab / Micro Data 05/16/25 06:33 05/16/25 06:33 Labs: Laboratory Results - last 24 hr 05/16/25 06:33: WBC 6.2, RBC 2.66 L, Hgb 8.2 L, Hct 25.4 L, MCV 95.5, MCH 30.8, MCHC 32.3, RDW Std Deviation 49.9 H, RDW Coeff of Papo 14.7 H, Plt Count 249, MPV9.0, Immature Gran % (Auto) 1.100 H, Neut % (Auto) 61.1, Lymph % (Auto) 17.4 L, [place] % (Auto) 11.8 H, Eos % (Auto) 8.1 H, Baso % (Auto) 0.5, Absolute Neuts (auto) 3.8, Absolute Lymphs (auto) 1.08, Nucleated RBC % 0, Sodium 135, Potassium 4.3, Chloride 100, Carbon Dioxide 25.7, Anion Gap 9, BUN 21 H, Creatinine 0.54 L, Estim Creat Clear Calc 61.56, Est GFR (MDRD) Non-Af 93, BUN/Creatinine Ratio 38.9 H, Glucose 91, Calcium 9.0, Phosphorus 3.2, Magnesium 1.9 Micro: Microbiology 05/11/25 23:59 Blood Culture (Wb) - Anticubital Left Blood Culture - Preliminary No growth in 48 hours. 05/11/25 17:31 Blood Culture (Wb) - Left Forearm Blood Culture - Preliminary No growth in 48 hours. 05/13/25 12:00 Stool Stool Occult Blood (MARINA) - Final Occult Blood Positive Physical Exam Const alert and no apparent distress General Appearance: cooperative, well kempt and well developed Orientation / Consciousness: awake, oriented to person and oriented to place HEENT normocephalic, head/scalp atraumatic and moist oral mucous membranes HEENT Narrative: Patient is extremely hard of hearing Eyes PERRL, EOMs intact bilaterally and conjunctivae normal Neck supple, no JVD, thyroid normal and no carotid bruits General: trachea midline Resp normal respiratory effort, no retractions, no use of accessory muscles and clearto auscultation bilaterally Auscultation: Negative for rales, rhonchi or wheezes Cardio regular rate, regular rhythm, S1 normal heart sound, S2 normal heart sound, no murmurs, no rub and no gallops GI normal to inspection, nondistended, normoactive bowel sounds, soft to palpation,non-tender and non-distended Extremity no clubbing, cyanosis or edema Skin no rashes or lesions noted General Skin Exam: no breakdown Neuro CN's II-XII intact bilaterally, moves all extremities, no focal motor deficits and no sensory deficits noted Sensorium / Orientation: awake, alert, oriented to person and oriented to place Speech: speech normal Psych affect normal Assessment & Plan Assessment/Plan (1) Generalized weakness: PLAN: Plan 1. Acute debility-PT and OT are continuing to work with the patient, we are waiting for approval for the patient to go to a skilled facility #2 recent right humeral fracture (05/08/2025) with debility-PT and OT will continue to work with thepatient, again she will need to go to a [facility] facility for short-term rehab services. #3 hyponatremia-corrected at this time #4 anemia-etiology unclear, patient's hemoglobin remained stable at this time #5 essential hypertension-patient will remain on her present medication #6 hypothyroidism-patient is on Synthroid #7 chronic depression-patient is on Cymbalta #8 obstructive sleep apnea-patient uses CPAP at night Total clinical time spent by myself addressing patient's medical issues, reviewing all of her data,and collaborating with patient's care team: 35 minutes Charges/Coding Visit Charges Inpatient E&M: 16150 Subs Hosp L2 Date medically ready for discharge: 05/14/25 Reason for DC delay: Precert pending from insurance 05/16/251899 Cosigner Signature (if applicable): CC: ~ Signed [facility]07-20-2025 Progress note Author Ifeanyi Fernandez [facility] Note Date/Time May 15, 2025 8:18 am [facility] Medical Records Department [address] [place] [address] Progress Note - Hospitalist 05/15/25 0814 MR#: [id number] Acct: [id number] Name: KATH ARRIAGA Rep #:[id number] : 1945 79 From: Ifeanyi Fernandez MD PCP: Dr. Deb Yusuf MD Status:AD M IN [facility] Reason for Visit Chief Complaint: Generalized Weakness with Inability to Care for Herself at Home. Subjective Subjective Patient seen remains profoundly weak, currently participating in therapy. No change in hemoglobin level. Patient is medically ready for discharge however still waiting for insurance precertification Objective Data Objective Data Vital Signs: Vital Signs Temp Pulse Resp BP Pulse Ox O2 Del Method O2 Flow Rate 98 F 77 18 136/64 H 98 Room Air 100 05/15/25 04:40 05/15/25 04:40 05/15/25 04:40 05/15/25 04:40 05/15/25 04:40 05/15/25 04:40 05/13/25 14:13 Oxygen Flow Rate (L/min) 100 Oxygen Delivery Method Room Air Weight: 93.8 kg Body Mass Index (BMI) 35.3 Intake & Output: Intake and Output for Last 24 Hours 05/13/25 05/14/25 05/15/25 23:59 23:59 23:59 Intake Total 370 / 370 920 / 920 800 / 800 Output Total 300 / 600 1600 / 1600 1500 / 1500 Balance 70 / -230 -680 / -680 -700 / -700 Lab / Micro Data 05/15/25 05:36 05/15/25 05:36 Labs: Laboratory Results - last 24 hr 05/15/25 05:36: WBC 6.8, RBC 2.49 L, Hgb 7.6 L, Hct 23.0 L, MCV 92.4, MCH 30.5, MCHC 33.0, RDW Std Deviation 47.8 H, RDW Coeff of Papo 14.4, Plt Count 216, MPV 8.9, Immature Gran % (Auto) 0.900, Neut % (Auto) 63.6, Lymph % (Auto) 19.1, [place]% (Auto) 9.6, Eos % (Auto) 6.4 H, Baso % (Auto) 0.4, Absolute Neuts (auto) 4.3, Absolute Lymphs (auto) 1.29, Nucleated RBC % 0, Sodium 133, Potassium 3.6, Chloride 101, Carbon Dioxide 23.1, Anion Gap 9, BUN 13, Creatinine 0.55 L, EstimCreat Clear Calc 61.24, Est GFR (MDRD) Non-Af 92, BUN/Creatinine Ratio 24.4 H, Glucose 85, Calcium 8.4 Micro: Microbiology 05/11/25 23:59 Blood Culture (Wb) - Anticubital Left Blood Culture - Preliminary No growth in 48 hours. 05/11/25 17:31 Blood Culture (Wb) - Left Forearm Blood Culture - Preliminary No growth in 48 hours. 05/13/25 12:00 Stool Stool Occult Blood (MARINA) - Final Occult Blood Positive Physical Exam Narrative GENERAL: cooperative HEENT: Atraumatic; normocephalic EYES; Anicteric, Normal Conjunctiva NECK; supple, normal thyroid, RESPIRATORY: Diminished to auscultation CARDIOVASCULAR: Regular S1 S2, GI: soft, normoactive bowel sounds, : No Renal angle tenderness; EXTREMITIES: No edema, no clubbing, MUSCULOSKELETAL: no muscle wasting NEURO: Awake; no lateralizing signs. SKIN: No Rash PSYCH; Flat affect Assessment & Plan Assessment/Plan (1) Closed fracture of right proximal humerus: (2) Fracture of proximal humerus: (3) Hyponatremia: (4) Generalized weakness: PLAN: Plan Patient is an 79-year-old lady with recent fall with right humeral fracture brought to the emergency department with inability to care for self 1. Physical deconditioning/debility in the context of a recent fall with right humeral fracture ? Requested for PT OT eval and social economist to assist with discharge planning 05/13/2025; insurance precertification pending prior to patient being transferred ? 05/14/2025; patient ready for discharge awaiting insurance precertification ? 05/15/2025; no change in clinical condition. Will continue with PT OT as tolerated pending insurance precertification 2. Fall with recent right shoulder fracture ? Imaging studies obtained on 05/08/2025 demonstrate slightly comminuted and mildly impacted fracture through the right humeral neck, which involves the greater tuberosity. Patient manage with immobilization consult placed orthopedic surgery ? 05/13/2025 patient was seen in consultation by Dr. Tarun Cheng with orthopedic surgery his notes and recommendations reviewed. 3. Anemia ? Secondary to chronic disorder monitoring H&H and transfuse if patient becomes symptomatic or hemoglobin falls below 7 also ordered iron studies as well as stool guaiac ? 05/13/2025 patient iron studies came back consistent with iron deficiency anemia. Did discuss results with patient who recommended taking Excedrin at home patient was advised to quit. Also did discuss with patient about undergoing subsequent evaluation as outpatient with both upper and lower EGD. Patient started on parenteral iron ? 05/14/2025; patient stool guaiac came back positive. I discussed with the patient the day prior about undergoing further evaluation as outpatient when medically stable. Hemoglobin down to 7.7. Additional 200 mg of parenteral irongiven ? 05/15/2025; patient hemoglobin down to 7.6 repeat H&H ordered for a.m. 4. Hyponatremia ? Secondary to suspected hypovolemic hyponatremia patient started on IV fluids with monitoring of daily BMPs also ordered serum and urine osmolality as well asurine sodium ? 05/14/2025; sodium level up to 133 5. Hypertension ? Blood pressure controlled, home medications continued with dose adjustment as needed 6.. Coronary artery disease ?Status post PCI in June 2019 patient remains on guideline directed medicaltherapy 7. Dyslipidemia -Patient is on statin therapy, continued at home dose 8. Hypothyroidism - Patient is on levothyroxine home dose continued 9. GERD ?On H2 blockers 10. Depression with anxiety ?Patient is on duloxetine did continue 11. Obstructive sleep apnea ?Patient is on CPAP at night 12. DVT prophylaxis ?SCDs only for now given the significant drop in hemoglobin from 9.9 to 8.1 Charges/Coding Visit Charges Inpatient E&M: 59998 Subs Hosp L2 Date medically ready for discharge: 05/14/25 Reason for DC delay: Precert pending from insurance 05/15/25817 <Electronically signed by Ifeanyi Frenandez MD> Cosigner Signature (if applicable): CC: ~ Signed [facility] Work Phone: 1(449) 865-422107-20-2025 Progress note [facility] Medical Records Department [address] [place] [address] Progress Note - Hospitalist 05/15/25813 MR#: [id number] Acct: [id number] Name: KTAH ARRIAGA Rep #:[id number] : 1945 79 From: Ifeanyi Fernandez MD PCP: Dr. Deb Yusuf MD Status:AD M IN [id number] Reason for Visit Chief Complaint: Generalized Weakness with Inability to Care for Herself at Home. Subjective Subjective Patient seen remains profoundly weak, currently participating in therapy. No change in hemoglobin level. Patient is medically ready for discharge however still waiting for insurance precertification Objective Data Objective Data Vital Signs: Vital Signs Temp Pulse Resp BP Pulse Ox O2 Del Method O2 Flow Rate 98 F 77 18 136/64 H 98 Room Air 100 05/15/25 04:40 05/15/25 04:40 05/15/25 04:40 05/15/25 04:40 05/15/25 04:40 05/15/25 04:40 05/13/25 14:13 Oxygen Flow Rate (L/min) 100 Oxygen Delivery Method Room Air Weight: 93.8 kg Body Mass Index (BMI) 35.3 Intake & Output: Intake and Output for Last 24 Hours 05/13/25 05/14/25 05/15/25 23:59 23:59 23:59 Intake Total 370 / 370 920 / 920 800 / 800 Output Total 300 / 600 1600 / 1600 1500 / 1500 Balance 70 / -230 -680 / -680 -700 / -700 Lab / Micro Data 05/15/25 05:36 05/15/25 05:36 Labs: Laboratory Results - last 24 hr 05/15/25 05:36: WBC 6.8, RBC 2.49 L, Hgb 7.6 L, Hct 23.0 L, MCV 92.4, MCH 30.5, MCHC 33.0, RDW Std Deviation 47.8 H, RDW Coeff of Papo 14.4, Plt Count 216, MPV 8.9, Immature Gran % (Auto) 0.900, Neut % (Auto) 63.6, Lymph % (Auto) 19.1, [place]% (Auto) 9.6, Eos % (Auto) 6.4 H, Baso % (Auto) 0.4, Absolute Neuts (auto) 4.3, Absolute Lymphs (auto) 1.29, Nucleated RBC % 0, Sodium 133, Potassium 3.6, Chloride 101, Carbon Dioxide 23.1, Anion Gap 9, BUN 13, Creatinine 0.55 L, EstimCreat Clear Calc 61.24, Est GFR (MDRD) Non-Af 92, BUN/Creatinine Ratio 24.4 H, Glucose 85, Calcium 8.4 Micro: Microbiology 05/11/25 23:59 Blood Culture (Wb) - Anticubital Left Blood Culture - Preliminary No growth in 48 hours. 05/11/25 17:31 Blood Culture (Wb) - Left Forearm Blood Culture - Preliminary No growth in 48 hours. 05/13/25 12:00 Stool Stool Occult Blood (MARINA) - Final Occult Blood Positive Physical Exam Narrative GENERAL: cooperative HEENT: Atraumatic; normocephalic EYES; Anicteric, Normal Conjunctiva NECK; supple, normal thyroid, RESPIRATORY: Diminished to auscultation CARDIOVASCULAR: Regular S1 S2, GI: soft, normoactive bowel sounds, : No Renal angle tenderness; EXTREMITIES: No edema, no clubbing, MUSCULOSKELETAL: no muscle wasting NEURO: Awake; no lateralizing signs. SKIN: No Rash PSYCH; Flat affect Assessment & Plan Assessment/Plan (1) Closed fracture of right proximal humerus: (2) Fracture of proximal humerus: (3) Hyponatremia: (4) Generalized weakness: PLAN: Plan Patient is an 79-year-old lady with recent fall with right humeral fracture brought to the emergency department with inability to care for self 1. Physical deconditioning/debility in the context of a recent fall with right humeral fracture ? Requested for PT OT eval and social economist to assist with discharge planning 05/13/2025; insurance precertification pending prior to patient being transferred ? 05/14/2025; patient ready for discharge awaiting insurance precertification ? 05/15/2025; no change in clinical condition. Will continue with PT OT as tolerated pending insurance precertification 2. Fall with recent right shoulder fracture ? Imaging studies obtained on 05/08/2025 demonstrate slightly comminuted and mildly impacted fracture through the right humeral neck, which involves the greater tuberosity. Patient manage with immobilization consult placed orthopedic surgery ? 05/13/2025 patient was seen in consultation by Dr. Tarun Cheng with orthopedic surgery his notes and recommendations reviewed. 3. Anemia ? Secondary to chronic disorder monitoring H&H and transfuse if patient becomes symptomatic or hemoglobin falls below 7 also ordered iron studies as well as stool guaiac ? 05/13/2025 patient iron studies came back consistent with iron deficiency anemia. Did discuss results with patient who recommended taking Excedrin at home patient was advised to quit. Also did discuss with patient about undergoing subsequent evaluation as outpatient with both upper and lower EGD. Patient started on parenteral iron ? 05/14/2025; patient stool guaiac came back positive. I discussed with the patient the day prior about undergoing further evaluation as outpatient when medically stable. Hemoglobin down to 7.7. Additional 200 mg of parenteral irongiven ? 05/15/2025; patient hemoglobin down to 7.6 repeat H&H ordered for a.m. 4. Hyponatremia ? Secondary to suspected hypovolemic hyponatremia patient started on IV fluids with monitoring of daily BMPs also ordered serum and urine osmolality as well asurine sodium ? 05/14/2025; sodium level up to 133 5. Hypertension ? Blood pressure controlled, home medications continued with dose adjustment as needed 6.. Coronary artery disease ?Status post PCI in June 2019 patient remains on guideline directed medicaltherapy 7. Dyslipidemia -Patient is on statin therapy, continued at home dose 8. Hypothyroidism - Patient is on levothyroxine home dose continued 9. GERD ?On H2 blockers 10. Depression with anxiety ?Patient is on duloxetine did continue 11. Obstructive sleep apnea ?Patient is on CPAP at night 12. DVT prophylaxis ?SCDs only for now given the significant drop in hemoglobin from 9.9 to 8.1 Charges/Coding Visit Charges Inpatient E&M: 92202 Subs Hosp L2 Date medically ready for discharge: 05/14/25 Reason for DC delay: Precert pending from insurance 05/15/25817 Cosigner Signature (if applicable): CC: ~ Signed [facility]07-19-2025 Progress note Author Ifeanyi Fernandez [facility] Note Date/Time May 14, 2025 8:49 am [facility] Medical Records Department [address] [place] [address] Progress Note - Hospitalist 05/14/25 075 MR#: [id number] Acct: [id number] Name: KATH ARRIAGA Rep #:[id number] : 1945 79 From: Ifeanyi Fernandez MD PCP: Dr. Deb Yusuf MD Status:AD M IN Location: [place] [address] Reason for Visit Chief Complaint: Generalized Weakness with Inability to Care for Herself at Home. Subjective Subjective ? Patient seen hemoglobin remains loose stool guaiac came back positive plan is for patient to undergo evaluation as outpatient Objective Data Objective Data Vital Signs: Vital Signs Temp Pulse Resp BP Pulse Ox O2 Del Method O2 Flow Rate 98.4 F 83 15 118/68 98 Room Air 100 05/14/25 04:00 05/14/25 04:00 05/14/25 04:00 05/14/25 04:00 05/14/25 04:00 05/14/25 04:00 05/13/25 14:13 Oxygen Flow Rate (L/min) 100 Oxygen Delivery Method Room Air Weight: 95 kg Body Mass Index (BMI) 35.7 Intake & Output: Intake and Output for Last 24 Hours 05/12/25 05/13/25 05/14/25 23:59 23:59 23:59 Intake Total 2049 / 2049 370 / 370 Output Total 1000 / 1000 300 / 600 800 / 800 Balance 1050 / 1050 70 / -230 -800 / -800 Lab / Micro Data 05/14/25 05:50 05/14/25 05:50 Labs: Laboratory Results - last 24 hr 05/14/25 05:50: WBC 7.0, RBC 2.50 L, Hgb 7.7 L, Hct 23.6 L, MCV 94.4, MCH 30.8, MCHC 32.6, RDW Std Deviation 48.6 H, RDW Coeff of Papo 14.4, Plt Count 212, MPV 9.2, Immature Gran % (Auto) 0.400, Neut % (Auto) 64.4, Lymph % (Auto) 16.4 L, [place] % (Auto) 11.7 H, Eos % (Auto) 6.7 H, Baso % (Auto) 0.4, Absolute Neuts (auto) 4.5, Absolute Lymphs (auto) 1.15, Nucleated RBC % 0, Sodium 133, Potassium 4.7, Chloride 102, Carbon Dioxide 21.4, Anion Gap 9, BUN 19, Creatinine 0.57 L, Estim Creat Clear Calc 61.66, Est GFR (MDRD) Non-Af 91, BUN/Creatinine Ratio 32.4 H, Glucose 94, Calcium 8.7 Micro: Microbiology 05/13/25 12:00 Stool Stool Occult Blood (MARINA) - Final Occult Blood Positive Physical Exam Narrative GENERAL: cooperative HEENT: Atraumatic; normocephalic EYES; Anicteric, Normal Conjunctiva NECK; supple, normal thyroid, RESPIRATORY: Diminished to auscultation CARDIOVASCULAR: Regular S1 S2, GI: soft, normoactive bowel sounds, : No Renal angle tenderness; EXTREMITIES: No edema, no clubbing, MUSCULOSKELETAL: no muscle wasting NEURO: Awake; no lateralizing signs. SKIN: No Rash PSYCH; Flat affect Assessment & Plan Assessment/Plan (1) Closed fracture of right proximal humerus: (2) Fracture of proximal humerus: (3) Hyponatremia: (4) Generalized weakness: PLAN: Plan Patient is an 79-year-old lady with recent fall with right humeral fracture brought to the emergency department with inability to care for self 1. Physical deconditioning/debility in the context of a recent fall with right humeral fracture ? Requested for PT OT eval and social economist to assist with discharge planning 05/13/2025; insurance precertification pending prior to patient being transferred ? 05/14/2025; patient ready for discharge awaiting insurance precertification 2. Fall with recent right shoulder fracture ? Imaging studies obtained on 05/08/2025 demonstrate slightly comminuted and mildly impacted fracture through the right humeral neck, which involves the greater tuberosity. Patient manage with immobilization consult placed orthopedic surgery ? 05/13/2025 patient was seen in consultation by Dr. Tarun Cheng with orthopedic surgery his notes and recommendations reviewed. 3. Anemia ? Secondary to chronic disorder monitoring H&H and transfuse if patient becomes symptomatic or hemoglobin falls below 7 also ordered iron studies as well as stool guaiac ? 05/13/2025 patient iron studies came back consistent with iron deficiency anemia. Did discuss results with patient who recommended taking Excedrin at home patient was advised to quit. Also did discuss with patient about undergoing subsequent evaluation as outpatient with both upper and lower EGD. Patient started on parenteral iron ? 05/14/2025; patient stool guaiac came back positive. I discussed with the patient the day prior about undergoing further evaluation as outpatient when medically stable. Hemoglobin down to 7.7. Additional 200 mg of parenteral irongiven 4. Hyponatremia ? Secondary to suspected hypovolemic hyponatremia patient started on IV fluids with monitoring of daily BMPs also ordered serum and urine osmolality as well asurine sodium ? 05/14/2025; sodium level up to 133 5. Hypertension ? Blood pressure controlled, home medications continued with dose adjustment as needed 6.. Coronary artery disease ?Status post PCI in June 2019 patient remains on guideline directed medicaltherapy 7. Dyslipidemia -Patient is on statin therapy, continued at home dose 8. Hypothyroidism - Patient is on levothyroxine home dose continued 9. GERD ?On H2 blockers 10. Depression with anxiety ?Patient is on duloxetine did continue 11. Obstructive sleep apnea ?Patient is on CPAP at night 12. DVT prophylaxis ?SCDs only for now given the significant drop in hemoglobin from 9.9 to 8.1 Time spent in the patient's overall evaluation,decision-making process, review of diagnostic data, adjustment of management, discussion with other providers, nursing nursing and ancillary staff involved in patient's care documentation, 36 Minutes Charges/Coding Visit Charges Inpatient E&M: 22091 Subs Hosp L2 05/14/25 0821 <Electronically signed by Ifeanyi Fernandez MD> Cosigner Signature (if applicable): CC: ~ Signed [facility] Work Phone: 1(611) 580-120407-19-2025 Progress note [facility] Medical Records Department [address] [place] [address] Progress Note - Hospitalist 05/14/25 0752 MR#: [id number] Acct: [id number] Name: KATH ARRIAGA Rep #:[id number] : 1945 79 From: Ifeanyi Fernandez MD PCP: Dr. Deb Yusuf MD Status:AD M IN Location: [facility] [id number] Reason for Visit Chief Complaint: Generalized Weakness with Inability to Care for Herself at Home. Subjective Subjective ? Patient seen hemoglobin remains loose stool guaiac came back positive plan is for patient to undergo evaluation as outpatient Objective Data Objective Data Vital Signs: Vital Signs Temp Pulse Resp BP Pulse Ox O2 Del Method O2 Flow Rate 98.4 F 83 15 118/68 98 Room Air 100 05/14/25 04:00 05/14/25 04:00 05/14/25 04:00 05/14/25 04:00 05/14/25 04:00 05/14/25 04:00 05/13/25 14:13 Oxygen Flow Rate (L/min) 100 Oxygen Delivery Method Room Air Weight: 95 kg Body Mass Index (BMI) 35.7 Intake & Output: Intake and Output for Last 24 Hours 05/12/25 05/13/25 05/14/25 23:59 23:59 23:59 Intake Total 2050 / 2050 370 / 370 Output Total 1000 / 1000 300 / 600 800 / 800 Balance 1050 / 1050 70 / -230 -800 / -800 Lab / Micro Data 05/14/25 05:50 05/14/25 05:50 Labs: Laboratory Results - last 24 hr 05/14/25 05:50: WBC 7.0, RBC 2.50 L, Hgb 7.7 L, Hct 23.6 L, MCV 94.4, MCH 30.8, MCHC 32.6, RDW Std Deviation 48.6 H, RDW Coeff of Papo 14.4, Plt Count 212, MPV 9.2, Immature Gran % (Auto) 0.400, Neut % (Auto) 64.4, Lymph % (Auto) 16.4 L, [place] % (Auto) 11.7 H, Eos % (Auto) 6.7 H, Baso % (Auto) 0.4, Absolute Neuts (auto) 4.5, Absolute Lymphs (auto) 1.15, Nucleated RBC % 0, Sodium 133, Potassium 4.7,Chloride 102, Carbon Dioxide 21.4, Anion Gap 9, BUN 19, Creatinine 0.57 L, Estim Creat Clear Calc 61.66, Est GFR (MDRD) Non-Af 91, BUN/Creatinine Ratio 32.4 H, Glucose 94, Calcium 8.7 Micro: Microbiology 05/13/25 12:00 Stool Stool Occult Blood (MARINA) - Final Occult Blood Positive Physical Exam Narrative GENERAL: cooperative HEENT: Atraumatic; normocephalic EYES; Anicteric, Normal Conjunctiva NECK; supple, normal thyroid, RESPIRATORY: Diminished to auscultation CARDIOVASCULAR: Regular S1 S2, GI: soft, normoactive bowel sounds, : No Renal angle tenderness; EXTREMITIES: No edema, no clubbing, MUSCULOSKELETAL: no muscle wasting NEURO: Awake; no lateralizing signs. SKIN: No Rash PSYCH; Flat affect Assessment & Plan Assessment/Plan (1) Closed fracture of right proximal humerus: (2) Fracture of proximal humerus: (3) Hyponatremia: (4) Generalized weakness: PLAN: Plan Patient is an 79-year-old lady with recent fall with right humeral fracture brought to the emergency department with inability to care for self 1. Physical deconditioning/debility in the context of a recent fall with right humeral fracture ? Requested for PT OT eval and social economist to assist with discharge planning 05/13/2025; insurance precertification pending prior to patient being transferred ? 05/14/2025; patient ready for discharge awaiting insurance precertification 2. Fall with recent right shoulder fracture ? Imaging studies obtained on 05/08/2025 demonstrate slightly comminuted and mildly impacted fracture through the right humeral neck, which involves the greater tuberosity. Patient manage with immobilization consult placed orthopedic surgery ? 05/13/2025 patient was seen in consultation by Dr. Tarun Cheng with orthopedic surgery his notes and recommendations reviewed. 3. Anemia ? Secondary to chronic disorder monitoring H&H and transfuse if patient becomes symptomatic or hemoglobin falls below 7 also ordered iron studies as well as stool guaiac ? 05/13/2025 patient iron studies came back consistent with iron deficiency anemia. Did discuss results with patient who recommended taking Excedrin at home patient was advised to quit. Also did discuss with patient about undergoing subsequent evaluation as outpatient with both upper and lower EGD. Patient started on parenteral iron ? 05/14/2025; patient stool guaiac came back positive. I discussed with the patient the day prior about undergoing further evaluation as outpatient when medically stable. Hemoglobin down to 7.7. Additional 200 mg of parenteral irongiven 4. Hyponatremia ? Secondary to suspected hypovolemic hyponatremia patient started on IV fluids with monitoring of daily BMPs also ordered serum and urine osmolality as well asurine sodium ? 05/14/2025; sodium level up to 133 5. Hypertension ? Blood pressure controlled, home medications continued with dose adjustment as needed 6.. Coronary artery disease ?Status post PCI in June 2019 patient remains on guideline directed medicaltherapy 7. Dyslipidemia -Patient is on statin therapy, continued at home dose 8. Hypothyroidism - Patient is on levothyroxine home dose continued 9. GERD ?On H2 blockers 10. Depression with anxiety ?Patient is on duloxetine did continue 11. Obstructive sleep apnea ?Patient is on CPAP at night 12. DVT prophylaxis ?SCDs only for now given the significant drop in hemoglobin from 9.9 to 8.1 Time spent in the patient's overall evaluation,decision-making process, review of diagnostic data, adjustment of management, discussion with other providers, nursing nursing and ancillary staff involved in patient's care documentation, 36 Minutes Charges/Coding Visit Charges Inpatient E&M: 27641 Subs Hosp L2 05/14/25 0849 Cosigner Signature (if applicable): CC: ~ Signed [facility]07-18-2025 Progress note Author Ifeanyi Fernandez [facility] Note Date/Time May 13, 2025 10:0 4am [facility] Medical Records Department [address] [place] [id number] Progress Note - Hospitalist 05/13/25 0759 MR#: [id number] Acct: [id number] Name: KATH ARRIAGA Rep #:[id number] : 1945 79 From: Ifeanyi Fernandez MD PCP: Dr. Deb Yusuf MD Status:AD M IN Location: [facility] LP326-6 Reason for Visit Chief Complaint: Generalized Weakness with Inability to Care for Herself at Home. Subjective Subjective Patient seen still complains of intractable pain in the right upper extremity. Hemoglobin down to 7.6 Objective Data Objective Data Vital Signs: Vital Signs Temp Pulse Resp BP Pulse Ox O2 Del Method O2 Flow Rate 97.6 F L 75 18 115/63 97 Room Air 2 05/13/25 05:35 05/13/25 05:35 05/13/25 05:35 05/13/25 05:35 05/13/25 05:35 05/13/25 07:11 05/12/25 16:00 Oxygen Flow Rate (L/min) 2 Oxygen Delivery Method Room Air Weight: 95 kg Body Mass Index (BMI) 35.7 Intake & Output: Intake and Output for Last 24 Hours 05/11/25 05/12/25 05/13/25 23:59 23:59 23:59 Intake Total 500 / 500 2050 / 2050 100 / 100 Output Total 200 / 200 1000 / 1000 300 / 300 Balance 300 / 300 1050 / 1050 -200 / -200 Lab / Micro Data 05/13/25 05:28 05/13/25 05:28 Labs: Laboratory Results - last 24 hr 05/13/25 05:28: WBC 7.3, RBC 2.47 L, Hgb 7.6 L, Hct 22.7 L, MCV 91.9, MCH 30.8, MCHC 33.5, RDW Std Deviation 47.5 H, RDW Coeff of Papo 14.2, Plt Count 199, MPV 9.2, Immature Gran % (Auto) 0.300, Neut % (Auto) 60.6, Lymph % (Auto) 22.9, [place]% (Auto) 10.2 H, Eos % (Auto) 5.6 H, Baso % (Auto) 0.4, Absolute Neuts (auto) 4.4, Absolute Lymphs (auto) 1.66, Nucleated RBC % 0, Sodium 132 L, Potassium 4.0, Chloride 103, Carbon Dioxide 18.7 L, Anion Gap 10, BUN 26 H, Creatinine 0.66 L, Estim Creat Clear Calc 61.66, Est GFR (MDRD) Non-Af 88, BUN/Creatinine Ratio 39.9 H, Glucose 98, Calcium 8.2, Phosphorus 2.6 L, Magnesium 2.0 Physical Exam Narrative GENERAL: cooperative HEENT: Atraumatic; normocephalic EYES; Anicteric, Normal Conjunctiva NECK; supple, normal thyroid, RESPIRATORY: Diminished to auscultation CARDIOVASCULAR: Regular S1 S2, GI: soft, normoactive bowel sounds, : No Renal angle tenderness; EXTREMITIES: No edema, no clubbing, MUSCULOSKELETAL: no muscle wasting NEURO: Awake; no lateralizing signs. SKIN: No Rash PSYCH; Flat affect Assessment & Plan Assessment/Plan (1) Closed fracture of right proximal humerus: (2) Fracture of proximal humerus: (3) Hyponatremia: (4) Generalized weakness: PLAN: Plan Patient is an 79-year-old lady with recent fall with right humeral fracture brought to the emergency department with inability to care for self 1. Physical deconditioning/debility in the context of a recent fall with right humeral fracture ? Requested for PT OT eval and social economist to assist with discharge planning 05/13/2025; insurance precertification pending prior to patient being transferred 2. Fall with recent right shoulder fracture ? Imaging studies obtained on 05/08/2025 demonstrate slightly comminuted and mildly impacted fracture through the right humeral neck, which involves the greater tuberosity. Patient manage with immobilization consult placed orthopedic surgery ? 05/13/2025 patient was seen in consultation by Dr. Tarun Cheng with orthopedic surgery his notes and recommendations reviewed. 3. Anemia ? Secondary to chronic disorder monitoring H&H and transfuse if patient becomes symptomatic or hemoglobin falls below 7 also ordered iron studies as well as stool guaiac ? 05/13/2025 patient iron studies came back consistent with iron deficiency anemia. Did discuss results with patient who recommended taking Excedrin at home patient was advised to quit. Also did discuss with patient about undergoing subsequent evaluation as outpatient with both upper and lower EGD. Patient started on parenteral iron 4. Hyponatremia ? Secondary to suspected hypovolemic hyponatremia patient started on IV fluids with monitoring of daily BMPs also ordered serum and urine osmolality as well asurine sodium 5. Hypertension ? Blood pressure controlled, home medications continued with dose adjustment as needed 6.. Coronary artery disease ?Status post PCI in June 2019 patient remains on guideline directed medicaltherapy 7. Dyslipidemia -Patient is on statin therapy, continued at home dose 8. Hypothyroidism - Patient is on levothyroxine home dose continued 9. GERD ?On H2 blockers 10. Depression with anxiety ?Patient is on duloxetine did continue 11. Obstructive sleep apnea ?Patient is on CPAP at night 12. DVT prophylaxis ?SCDs only for now given the significant drop in hemoglobin from 9.9 to 8.1 Time spent in the patient's overall evaluation,decision-making process, review of diagnostic data, adjustment of management, discussion with other providers, nursing nursing and ancillary staff involved in patient's care documentation, 38 Minutes Charges/Coding Visit Charges Inpatient E&M: 23803 Subs Hosp L2 05/13/25 1004 <Electronically signed by Ifeanyi Fernandez MD> Cosigner Signature (if applicable): CC: ~ Signed [facility] Work Phone: [phone] 318-751007-18-2025 Progress note [facility] Medical Records Department [address] [place] [address] Progress Note - Hospitalist 05/13/25 0759 MR#: [id number] Acct: [id number] Name: KATH ARRIAGA Rep #:[id number] : 1945 79 From: Ifeanyi Fernandez MD PCP: Dr. Deb Yusuf MD Status:AD M IN Location: [place] [address] Reason for Visit Chief Complaint: Generalized Weakness with Inability to Care for Herself at Home. Subjective Subjective Patient seen still complains of intractable pain in the right upper extremity. Hemoglobin down to 7.6 Objective Data Objective Data Vital Signs: Vital Signs Temp Pulse Resp BP Pulse Ox O2 Del Method O2 Flow Rate 97.6 F L 75 18 115/63 97 Room Air 2 05/13/25 05:35 05/13/25 05:35 05/13/25 05:35 05/13/25 05:35 05/13/25 05:35 05/13/25 07:11 05/12/25 16:00 Oxygen Flow Rate (L/min) 2 Oxygen Delivery Method Room Air Weight: 95 kg Body Mass Index (BMI) 35.7 Intake & Output: Intake and Output for Last 24 Hours 05/11/25 05/12/25 05/13/25 23:59 23:59 23:59 Intake Total 500 / 500 2050 / 2050 100 / 100 Output Total 200 / 200 1000 / 1000 300 / 300 Balance 300 / 300 1050 / 1050 -200 / -200 Lab / Micro Data 05/13/25 05:28 05/13/25 05:28 Labs: Laboratory Results - last 24 hr 05/13/25 05:28: WBC 7.3, RBC 2.47 L, Hgb 7.6 L, Hct 22.7 L, MCV 91.9, MCH 30.8, MCHC 33.5, RDW Std Deviation 47.5 H, RDW Coeff of Papo 14.2, Plt Count 199, MPV 9.2, Immature Gran % (Auto) 0.300, Neut % (Auto) 60.6, Lymph % (Auto) 22.9, [place]% (Auto) 10.2 H, Eos % (Auto) 5.6 H, Baso % (Auto) 0.4, Absolute Neuts (auto) 4.4, Absolute Lymphs (auto) 1.66, Nucleated RBC % 0, Sodium 132 L, Potassium 4.0, Chloride 103, Carbon Dioxide 18.7 L, Anion Gap 10, BUN 26 H, Creatinine 0.66 L, Estim Creat Clear Calc 61.66, Est GFR (MDRD) Non-Af 88, BUN/Creatinine Ratio 39.9 H, Glucose 98, Calcium 8.2, Phosphorus2.6 L, Magnesium 2.0 Physical Exam Narrative GENERAL: cooperative HEENT: Atraumatic; normocephalic EYES; Anicteric, Normal Conjunctiva NECK; supple, normal thyroid, RESPIRATORY: Diminished to auscultation CARDIOVASCULAR: Regular S1 S2, GI: soft, normoactive bowel sounds, : No Renal angle tenderness; EXTREMITIES: No edema, no clubbing, MUSCULOSKELETAL: no muscle wasting NEURO: Awake; no lateralizing signs. SKIN: No Rash PSYCH; Flat affect Assessment & Plan Assessment/Plan (1) Closed fracture of right proximal humerus: (2) Fracture of proximal humerus: (3) Hyponatremia: (4) Generalized weakness: PLAN: Plan Patient is an 79-year-old lady with recent fall with right humeral fracture brought to the emergency department with inability to care for self 1. Physical deconditioning/debility in the context of a recent fall with right humeral fracture ? Requested for PT OT eval and social economist to assist with discharge planning 05/13/2025; insurance precertification pending prior to patient being transferred 2. Fall with recent right shoulder fracture ? Imaging studies obtained on 05/08/2025 demonstrate slightly comminuted and mildly impacted fracture through the right humeral neck, which involves the greater tuberosity. Patient manage with immobilization consult placed orthopedic surgery ? 05/13/2025 patient was seen in consultation by Dr. Tarun Cheng with orthopedic surgery his notes and recommendations reviewed. 3. Anemia ? Secondary to chronic disorder monitoring H&H and transfuse if patient becomes symptomatic or hemoglobin falls below 7 also ordered iron studies as well as stool guaiac ? 05/13/2025 patient iron studies came back consistent with iron deficiency anemia. Did discuss results with patient who recommended taking Excedrin at home patient was advised to quit. Also did discuss with patient about undergoing subsequent evaluation as outpatient with both upper and lower EGD. Patient started on parenteral iron 4. Hyponatremia ? Secondary to suspected hypovolemic hyponatremia patient started on IV fluids with monitoring of daily BMPs also ordered serum and urine osmolality as well asurine sodium 5. Hypertension ? Blood pressure controlled, home medications continued with dose adjustment as needed 6.. Coronary artery disease ?Status post PCI in June 2019 patient remains on guideline directed medicaltherapy 7. Dyslipidemia -Patient is on statin therapy, continued at home dose 8. Hypothyroidism - Patient is on levothyroxine home dose continued 9. GERD ?On H2 blockers 10. Depression with anxiety ?Patient is on duloxetine did continue 11. Obstructive sleep apnea ?Patient is on CPAP at night 12. DVT prophylaxis ?SCDs only for now given the significant drop in hemoglobin from 9.9 to 8.1 Time spent in the patient's overall evaluation,decision-making process, review of diagnostic data, adjustment of management, discussion with other providers, nursing nursing and ancillary staff involved in patient's care documentation, 38 Minutes Charges/Coding Visit Charges Inpatient E&M: 18203 Subs Hosp L2 05/13/25 1004 Cosigner Signature (if applicable): CC: ~ Signed [facility]07-17-2025 Progress note Author Ifeanyi Fernandez [facility] Note Date/Time May 12, 2025 8:58 am [facility] Medical Records Department [address] [place] [address] Progress Note - Hospitalist 05/12/25 0731 MR#: [id number] Acct: [id number] Name: KATH ARRIAGA Rep #:[id number] : 1945 79 From: Ifeanyi Fernandez MD PCP: Dr. Deb Yusuf MD Status:AD M IN Location: [place] [id number] Reason for Visit Chief Complaint: Generalized Weakness with Inability to Care for Herself at Home. Subjective Subjective Patient is an 79-year-old lady with recent fall with right humeral fracture brought to the emergency department with inability to care for self Objective Data Objective Data Vital Signs: Vital Signs Temp Pulse Resp BP Pulse Ox O2 Del Method 98.2 F 95 19 H 104/59 L 95 Room Air 05/12/25 04:48 05/11/25 22:10 05/12/25 04:48 05/12/25 04:48 05/12/25 04:48 05/12/25 04:48 Oxygen Delivery Method Room Air Weight: 92.3 kg Body Mass Index (BMI) 34.7 Intake & Output: Intake and Output for Last 24 Hours 05/10/25 05/11/25 05/12/25 23:59 23:59 23:59 Intake Total 500 / 500 250 / 250 Output Total 200 / 200 300 / 300 Balance 300 / 300 -50 / -50 Lab / Micro Data 05/12/25 05:18 05/12/25 05:18 Labs: Laboratory Results - last 24 hr 05/11/25 17:31: WBC 11.5 H, RBC 3.22 L, Hgb 9.9 L, Hct 30.3 L, MCV 94.1, MCH 30.7, MCHC 32.7, RDW Std Deviation 48.0 H, RDW Coeff of Papo 14.0, Plt Count 233,MPV 9.4, Immature Gran % (Auto) 0.300, Neut % (Auto) 83.7 H, Lymph % (Auto) 7.0 L, [place] % (Auto) 8.4, Eos % (Auto) 0.3, Baso % (Auto) 0.3, Absolute Neuts (auto)9.6 H, Absolute Lymphs (auto) 0.81 L, Nucleated RBC % 0, Sodium 129 L, Potassium3.9, Chloride 96 L, Carbon Dioxide 15.6 L, Anion Gap 17 H, BUN 59 H, Creatinine 1.22 H, Estim Creat Clear Calc 40.78 L, Est GFR (MDRD) Non-Af 45 L, BUN/Creatinine Ratio 48.1 H, Glucose 124 H, Hemoglobin A1c 4.7, Calcium 9.3, Magnesium 2.3 H, Iron 34 L, TIBC 289, Iron Saturation 11.8 L, Unsaturated IBC 255, Ferritin 135, Total Bilirubin 0.52, AST 77 H, ALT 32, Alkaline Phosphatase 86, Troponin T High Sens 26 H, Total Protein 6.9, Albumin 3.9, Globulin 3.1, Albumin/Globulin Ratio 1.3, Lipase 29, TSH 2.340, Blood Type O POSITIVE, Antibody Screen NEGATIVE 05/11/25 18:12: Urine Color Straw, Urine Clarity Cloudy, Urine pH 5.0, Ur Specific [place] 1.020, Urine Protein 30 H, Urine Glucose (UA) Normal, Urine Ketones Negative, Urine Occult Blood Negative, Urine Nitrite Negative, Urine Bilirubin Negative, Urine Urobilinogen Normal, Ur Leukocyte Esterase Negative, Urine RBC 0 SEEN, Urine WBC 0-5 SEEN, Ur Squamous Epith Cells 0 SEEN, Amorphous Sediment 1+ URATE, Urine Bacteria 2+, Urine Mucus 0 SEEN 05/11/25 19:44: Lactic Acid 3.2 H* 05/11/25 22:42: Urine Osmolality 715 05/11/25 23:59: Serum Osmolality 293, Lactic Acid 1.3, Serum Folate 32.40 05/12/25 05:18: WBC 9.1, RBC 2.62 L, Hgb 8.1 L, Hct 23.5 L, MCV 89.7, MCH 30.9, MCHC 34.5 D, RDW Std Deviation 45.3 H, RDW Coeff of Papo 14.0, Plt Count 210, MPV 9.4, Immature Gran % (Auto) 0.400, Neut % (Auto) 72.7 H, Lymph % (Auto) 15.4L, [place] % (Auto) 10.1 H, Eos % (Auto) 1.2, Baso % (Auto) 0.2, Absolute Neuts (auto) 6.6, Absolute Lymphs (auto) 1.40, Nucleated RBC % 0, Sodium 132 L, Potassium 3.9, Chloride 101, Carbon Dioxide 19.3 L, Anion Gap 11, BUN 45 H, Creatinine 0.89, Estim Creat Clear Calc 54.58, Est GFR (MDRD) Non-Af 65, BUN/Creatinine Ratio 50.1 H, Glucose 101 H, Calcium 8.4, Phosphorus 2.9, Total Bilirubin 0.60, AST 65 H, ALT 30, Alkaline Phosphatase 71, Total Protein 5.7 L, Albumin 3.3 L, Globulin 2.4, Albumin/Globulin Ratio 1.4, Triglycerides 78, Cholesterol 118, LDL Cholesterol, Calc 44, VLDL Cholesterol 16, HDL Cholesterol 59, Cholesterol/HDL Ratio 2.00 ABG Data ABG results: ABG 05/11/25 19:57 Specimen Type JUDY Sample Site Not entered VBG pH 7.37 VBG pO2 138 H VBG HCO3 19 L VBG Total CO2 21 L VBG O2 Sat (Calc) 99 H VBG Base Excess -6 L POC Mix VBG pCO2 Pt Tmp 33.5 L O2 Delivery Device Not entered Radiography Diagnostic Testing: Radiology Impression Brain CT 05/11/25 17:47 IMPRESSION: 1. No evidence of acute intracranial pathology. 2. Moderate-advanced volume loss and chronic small-vessel ischemic changes. Reading Location: [facility] Abdomen/Pelvis CT 05/11/25 21:25 IMPRESSION: Possible ventral abdominal wall cellulitis. Advise correlation. Reading Location: [place] [address] Physical Exam Narrative GENERAL: cooperative HEENT: Atraumatic; normocephalic EYES; Anicteric, Normal Conjunctiva NECK; supple, normal thyroid, RESPIRATORY: Diminished to auscultation CARDIOVASCULAR: Regular S1 S2, GI: soft, normoactive bowel sounds, : No Renal angle tenderness; EXTREMITIES: No edema, no clubbing, MUSCULOSKELETAL: no muscle wasting NEURO: Awake; no lateralizing signs. SKIN: No Rash PSYCH; Flat affect Assessment & Plan Assessment/Plan (1) Closed fracture of right proximal humerus: (2) Fracture of proximal humerus: (3) Hyponatremia: (4) Generalized weakness: PLAN: Plan Patient is an 79-year-old lady with recent fall with right humeral fracture brought to the emergency department with inability to care for self 1. Physical deconditioning/debility in the context of a recent fall with right humeral fracture ? Requested for PT OT eval and social economist to assist with discharge planning 2. Fall with recent right shoulder fracture ? Imaging studies obtained on 05/08/2025 demonstrate slightly comminuted and mildly impacted fracture through the right humeral neck, which involves the greater tuberosity. Patient manage with immobilization consult placed orthopedic surgery 3. Anemia ? Secondary to chronic disorder monitoring H&H and transfuse if patient becomes symptomatic or hemoglobin falls below 7 also ordered iron studies as well as stool guaiac 4. Hyponatremia ? Secondary to suspected hypovolemic hyponatremia patient started on IV fluids with monitoring of daily BMPs also ordered serum and urine osmolality as well asurine sodium 5. Hypertension ? Blood pressure controlled, home medications continued with dose adjustment as needed 6.. Coronary artery disease ?Status post PCI in June 2019 patient remains on guideline directed medicaltherapy 7. Dyslipidemia -Patient is on statin therapy, continued at home dose 8. Hypothyroidism - Patient is on levothyroxine home dose continued 9. GERD ?On H2 blockers 10. Depression with anxiety ?Patient is on duloxetine did continue 11. Obstructive sleep apnea ?Patient is on CPAP at night 12. DVT prophylaxis ?SCDs only for now given the significant drop in hemoglobin from 9.9 to 8.1 Time spent in the patient's overall evaluation,decision-making process, review of diagnostic data, adjustment of management, discussion with other providers, nursing nursing and ancillary staff involved in patient's care documentation, 50Minutes Charges/Coding Visit Charges Inpatient E&M: 09951 Subs Hosp 05/12/25 0858 <Electronically signed by Ifeanyi Fernandez MD> Cosigner Signature (if applicable): CC: ~ Signed [facility] Work Phone: 1(279) 314-908007-17-2025 Progress note Author Tarun Cheng [facility] Note Date/Time May 12, 2025 8:29 am [facility] Medical Records Department [address] [place] [address] Progress Note - Orthopedic 05/12/2528 MR#: [id number] Acct: [id number] Name: KATH ARRIAGA Rep #:[id number] : 1945 79 From: Tarun Cheng MD PCP: Dr. Deb Yusuf MD Status:AD M IN Location: [place] [id number] Subjective Subjective R proximal humerus fracture. Objective Data Objective Data Vital Signs: Vital Signs Temp Pulse Resp BP Pulse Ox O2 Del Method 98.2 F 95 19 H 104/59 L 95 Room Air 05/12/25 04:48 05/11/25 22:10 05/12/25 04:48 05/12/25 04:48 05/12/25 04:48 05/12/25 07:28 Oxygen Delivery Method Room Air Weight: 203 lb 7.787 oz Body Mass Index (BMI) 34.7 Intake & Output: Intake and Output for Last 24 Hours 05/10/25 05/11/25 05/12/25 23:59 23:59 23:59 Intake Total 500 / 500 250 / 250 Output Total 200 / 200 300 / 300 Balance 300 / 300 -50 / -50 Lab / Micro Data 05/12/25 05:18 05/12/25 05:18 Labs: Laboratory Results - last 24 hr 05/11/25 17:31: WBC 11.5 H, RBC 3.22 L, Hgb 9.9 L, Hct 30.3 L, MCV 94.1, MCH 30.7, MCHC 32.7, RDW Std Deviation 48.0 H, RDW Coeff of Papo 14.0, Plt Count 233,MPV 9.4, Immature Gran % (Auto) 0.300, Neut % (Auto) 83.7 H, Lymph % (Auto) 7.0 L, [place] % (Auto) 8.4, Eos % (Auto) 0.3, Baso % (Auto) 0.3, Absolute Neuts (auto)9.6 H, Absolute Lymphs (auto) 0.81 L, Nucleated RBC % 0, Sodium 129 L, Potassium3.9, Chloride 96 L, Carbon Dioxide 15.6 L, Anion Gap 17 H, BUN 59 H, Creatinine 1.22 H, Estim Creat Clear Calc 40.78 L, Est GFR (MDRD) Non-Af 45 L, BUN/Creatinine Ratio 48.1 H, Glucose 124 H, Hemoglobin A1c 4.7, Calcium 9.3, Magnesium 2.3 H, Iron 34 L, TIBC 289, Iron Saturation 11.8 L, Unsaturated IBC 255, Ferritin 135, Total Bilirubin 0.52, AST 77 H, ALT 32, Alkaline Phosphatase 86, Troponin T High Sens 26 H, Total Protein 6.9, Albumin 3.9, Globulin 3.1, Albumin/Globulin Ratio 1.3, Lipase 29, TSH 2.340, Blood Type O POSITIVE, Antibody Screen NEGATIVE 05/11/25 18:12: Urine Color Straw, Urine Clarity Cloudy, Urine pH 5.0, Ur Specific [place] 1.020, Urine Protein 30 H, Urine Glucose (UA) Normal, Urine Ketones Negative, Urine Occult Blood Negative, Urine Nitrite Negative, Urine Bilirubin Negative, Urine Urobilinogen Normal, Ur Leukocyte Esterase Negative, Urine RBC 0 SEEN, Urine WBC 0-5 SEEN, Ur Squamous Epith Cells 0 SEEN, Amorphous Sediment 1+ URATE, Urine Bacteria 2+, Urine Mucus 0 SEEN 05/11/25 19:44: Lactic Acid 3.2 H* 05/11/25 22:42: Urine Osmolality 715 05/11/25 23:59: Serum Osmolality 293, Lactic Acid 1.3, Serum Folate 32.40 05/12/25 05:18: WBC 9.1, RBC 2.62 L, Hgb 8.1 L, Hct 23.5 L, MCV 89.7, MCH 30.9, MCHC 34.5 D, RDW Std Deviation 45.3 H, RDW Coeff of Papo 14.0, Plt Count 210, MPV 9.4, Immature Gran % (Auto) 0.400, Neut % (Auto) 72.7 H, Lymph % (Auto) 15.4L, [place] % (Auto) 10.1 H, Eos % (Auto) 1.2, Baso % (Auto) 0.2, Absolute Neuts (auto) 6.6, Absolute Lymphs (auto) 1.40, Nucleated RBC % 0, Sodium 132 L, Potassium 3.9, Chloride 101, Carbon Dioxide 19.3 L, Anion Gap 11, BUN 45 H, Creatinine 0.89, Estim Creat Clear Calc 54.58, Est GFR (MDRD) Non-Af 65, BUN/Creatinine Ratio 50.1 H, Glucose 101 H, Calcium 8.4, Phosphorus 2.9, Total Bilirubin 0.60, AST 65 H, ALT 30, Alkaline Phosphatase 71, Total Protein 5.7 L, Albumin 3.3 L, Globulin 2.4, Albumin/Globulin Ratio 1.4, Triglycerides 78, Cholesterol 118, LDL Cholesterol, Calc 44, VLDL Cholesterol 16, HDL Cholesterol 59, Cholesterol/HDL Ratio 2.00 ABG Data ABG results: ABG 05/11/25 19:57 Specimen Type JUDY Sample Site Not entered VBG pH 7.37 VBG pO2 138 H VBG HCO3 19 L VBG Total CO2 21 L VBG O2 Sat (Calc) 99 H VBG Base Excess -6 L POC Mix VBG pCO2 Pt Tmp 33.5 L O2 Delivery Device Not entered Radiography Diagnostic Testing: Radiology Impression Brain CT 05/11/25 17:47 IMPRESSION: 1. No evidence of acute intracranial pathology. 2. Moderate-advanced volume loss and chronic small-vessel ischemic changes. Reading Location: [id number] Abdomen/Pelvis CT 05/11/25 21:25 IMPRESSION: Possible ventral abdominal wall cellulitis. Advise correlation. Reading Location: [place] [address] R proximal humerus fracture at the neck. minimally displaced. Assessment & Plan Assessment/Plan (1) Closed fracture of right proximal humerus: PLAN: 79 yr F with multiple PMHX with right proximal humerus fracture minimally displaced. I recommend nonoperative treatment with a sling and follow-up as an outpatient once the medical issues have stabilized. 05/12/25 0829 <Electronically signed by Tarun Cheng MD> Cosigner Signature (if applicable): CC: ~ Signed [facility] Work Phone: [phone]) 153-813307-17-2025 Progress note [facility] Medical Records Department [address] [place] [id number] Progress Note - Hospitalist 05/12/25 0731 MR#: [id number] Acct: [id number] Name: KATH ARRIAGA Rep #:[id number] : 1945 79 From: Ifeanyi Fernandez MD PCP: Dr. Deb Yusuf MD Status:AD M IN Location: [place] [address] Reason for Visit Chief Complaint: Generalized Weakness with Inability to Care for Herself at Home. Subjective Subjective Patient is an 79-year-old lady with recent fall with right humeral fracture brought to the emergency department with inability to care for self Objective Data Objective Data Vital Signs: Vital Signs Temp Pulse Resp BP Pulse Ox O2 Del Method 98.2 F 95 19 H 104/59 L 95 Room Air 05/12/25 04:48 05/11/25 22:10 05/12/25 04:48 05/12/25 04:48 05/12/25 04:48 05/12/25 04:48 Oxygen Delivery Method Room Air Weight: 92.3 kg Body Mass Index (BMI) 34.7 Intake & Output: Intake and Output for Last 24 Hours 05/10/25 05/11/25 05/12/25 23:59 23:59 23:59 Intake Total 500 / 500 250 / 250 Output Total 200 / 200 300 / 300 Balance 300 / 300 -50 / -50 Lab / Micro Data 05/12/25 05:18 05/12/25 05:18 Labs: Laboratory Results - last 24 hr 05/11/25 17:31: WBC 11.5 H, RBC 3.22 L, Hgb 9.9 L, Hct 30.3 L, MCV 94.1, MCH 30.7, MCHC 32.7, RDW Std Deviation 48.0 H, RDW Coeff of Papo 14.0, Plt Count 233,MPV 9.4, Immature Gran % (Auto) 0.300, Neut % (Auto) 83.7 H, Lymph % (Auto) 7.0 L, [place] % (Auto) 8.4, Eos % (Auto) 0.3, Baso % (Auto) 0.3, Absolute Neuts (auto)9.6 H, Absolute Lymphs (auto) 0.81 L, Nucleated RBC % 0, Sodium 129 L, Potassium3.9, Chloride 96 L, Carbon Dioxide 15.6 L, Anion Gap 17 H, BUN 59 H, Creatinine 1.22 H, Estim Creat Clear Calc 40.78 L, Est GFR (MDRD) Non-Af 45 L, BUN/Creatinine Ratio 48.1 H, Glucose 124 H, IrnhvozfbmW5w 4.7, Calcium 9.3, Magnesium 2.3 H, Iron 34 L, TIBC 289, Iron Saturation 11.8 L, Unsaturated IBC 255, Ferritin 135, Total Bilirubin 0.52, AST 77 H, ALT 32, Alkaline Phosphatase 86, Troponin T HighSens 26 H, Total Protein 6.9, Albumin 3.9, Globulin 3.1, Albumin/Globulin Ratio 1.3, Lipase 29, TSH2.340, Blood Type O POSITIVE, Antibody Screen NEGATIVE 05/11/25 18:12: Urine Color Straw, Urine Clarity Cloudy, Urine pH 5.0, Ur Specific [place] 1.020, Urine Protein 30 H, Urine Glucose (UA) Normal, Urine Ketones Negative, Urine Occult Blood Negative, Urine Nitrite Negative, Urine Bilirubin Negative, Urine Urobilinogen Normal, Ur Leukocyte Esterase Negative, Urine RBC 0 SEEN, Urine WBC 0-5 SEEN, Ur Squamous Epith Cells 0 SEEN, Amorphous Sediment 1+ URATE, Urine Bacteria 2+, Urine Mucus 0 SEEN 05/11/25 19:44: Lactic Acid 3.2 H* 05/11/25 22:42: Urine Osmolality 715 05/11/25 23:59: Serum Osmolality 293, Lactic Acid 1.3, Serum Folate 32.40 05/12/25 05:18: WBC 9.1, RBC 2.62 L, Hgb 8.1 L, Hct 23.5 L, MCV 89.7, MCH 30.9, MCHC 34.5 D, RDW Std Deviation 45.3 H, RDW Coeff of Papo 14.0, Plt Count 210, MPV 9.4, Immature Gran % (Auto) 0.400, Neut % (Auto) 72.7 H, Lymph % (Auto) 15.4L, [place] % (Auto) 10.1 H, Eos % (Auto) 1.2, Baso % (Auto) 0.2, Absolute Neuts (auto) 6.6, Absolute Lymphs (auto) 1.40, Nucleated RBC % 0, Sodium 132 L, Potassium 3. 9, Chloride 101, Carbon Dioxide 19.3 L, Anion Gap 11, BUN 45 H, Creatinine 0.89, Estim Creat Clear Calc 54.58, Est GFR (MDRD) Non-Af 65, BUN/Creatinine Ratio 50.1 H, Glucose 101 H, Calcium 8.4, Phosphorus 2.9, Total Bilirubin 0.60, AST 65 H, ALT 30, Alkaline Phosphatase 71, Total Protein 5.7 L, Albumin 3.3 L, Globulin 2.4, Albumin/Globulin Ratio 1.4, Triglycerides 78, Cholesterol 118, LDL Cholesterol, Calc 44, VLDL Cholesterol 16, HDL Cholesterol 59, Cholesterol/HDL Ratio 2.00 ABG Data ABG results: ABG 05/11/25 19:57 Specimen Type JUDY Sample Site Not entered VBG pH 7.37 VBG pO2 138 H VBG HCO3 19 L VBG Total CO2 21 L VBG O2 Sat (Calc) 99 H VBG Base Excess -6 L POC Mix VBG pCO2 Pt Tmp 33.5 L O2 Delivery Device Not entered Radiography Diagnostic Testing: Radiology Impression Brain CT 05/11/25 17:47 IMPRESSION: 1. No evidence of acute intracranial pathology. 2. Moderate-advanced volume loss and chronic small-vessel ischemic changes. Reading Location: [facility] Abdomen/Pelvis CT 05/11/25 21:25 IMPRESSION: Possible ventral abdominal wall cellulitis. Advise correlation. Reading Location: [place] [address] Physical Exam Narrative GENERAL: cooperative HEENT: Atraumatic; normocephalic EYES; Anicteric, Normal Conjunctiva NECK; supple, normal thyroid, RESPIRATORY: Diminished to auscultation CARDIOVASCULAR: Regular S1 S2, GI: soft, normoactive bowel sounds, : No Renal angle tenderness; EXTREMITIES: No edema, no clubbing, MUSCULOSKELETAL: no muscle wasting NEURO: Awake; no lateralizing signs. SKIN: No Rash PSYCH; Flat affect Assessment & Plan Assessment/Plan (1) Closed fracture of right proximal humerus: (2) Fracture of proximal humerus: (3) Hyponatremia: (4) Generalized weakness: PLAN: Plan Patient is an 79-year-old lady with recent fall with right humeral fracture brought to the emergency department with inability to care for self 1. Physical deconditioning/debility in the context of a recent fall with right humeral fracture ? Requested for PT OT eval and social economist to assist with discharge planning 2. Fall with recent right shoulder fracture ? Imaging studies obtained on 05/08/2025 demonstrate slightly comminuted and mildly impacted fracture through the right humeral neck, which involves the greater tuberosity. Patient manage with immobilization consult placed orthopedic surgery 3. Anemia ? Secondary to chronic disorder monitoring H&H and transfuse if patient becomes symptomatic or hemoglobin falls below 7 also ordered iron studies as well as stool guaiac 4. Hyponatremia ? Secondary to suspected hypovolemic hyponatremia patient started on IV fluids with monitoring of daily BMPs also ordered serum and urine osmolality as well asurine sodium 5. Hypertension ? Blood pressure controlled, home medications continued with dose adjustment as needed 6.. Coronary artery disease ?Status post PCI in June 2019 patient remains on guideline directed medicaltherapy 7. Dyslipidemia -Patient is on statin therapy, continued at home dose 8. Hypothyroidism - Patient is on levothyroxine home dose continued 9. GERD ?On H2 blockers 10. Depression with anxiety ?Patient is on duloxetine did continue 11. Obstructive sleep apnea ?Patient is on CPAP at night 12. DVT prophylaxis ?SCDs only for now given the significant drop in hemoglobin from 9.9 to 8.1 Time spent in the patient's overall evaluation,decision-making process, review of diagnostic data, adjustment of management, discussion with other providers, nursing nursing and ancillary staff involved in patient's care documentation, 50Minutes Charges/Coding Visit Charges Inpatient E&M: 69604 Subs Hosp L3 05/12/25 0858 Cosigner Signature (if applicable): CC: ~ Signed [facility]07-17-2025 Progress note [facility] Medical Records Department [address] [place] [address] Progress Note - Orthopedic 05/12/25 0828 MR#: [id number] Acct: [id number] Name: KATH ARRIAGA Rep #:[id number] : 1945 79 From: Tarun Cheng MD PCP: Dr. Deb Yusuf MD Status:AD M IN Location: [place] [address] Subjective Subjective R proximal humerus fracture. Objective Data Objective Data Vital Signs: Vital Signs Temp Pulse Resp BP Pulse Ox O2 Del Method 98.2 F 95 19 H 104/59 L 95 Room Air 05/12/25 04:48 05/11/25 22:10 05/12/25 04:48 05/12/25 04:48 05/12/25 04:48 05/12/25 07:28 Oxygen Delivery Method Room Air Weight: 203 lb 7.787 oz Body Mass Index (BMI) 34.7 Intake & Output: Intake and Output for Last 24 Hours 05/10/25 05/11/25 05/12/25 23:59 23:59 23:59 Intake Total 500 / 500 250 / 250 Output Total 200 / 200 300 / 300 Balance 300 / 300 -50 / -50 Lab / Micro Data 05/12/25 05:18 05/12/25 05:18 Labs: Laboratory Results - last 24 hr 05/11/25 17:31: WBC 11.5 H, RBC 3.22 L, Hgb 9.9 L, Hct 30.3 L, MCV 94.1, MCH 30.7, MCHC 32.7, RDW Std Deviation 48.0 H, RDW Coeff of Papo 14.0, Plt Count 233,MPV 9.4, Immature Gran % (Auto) 0.300, Neut % (Auto) 83.7 H, Lymph % (Auto) 7.0 L, [place] % (Auto) 8.4, Eos % (Auto) 0.3, Baso % (Auto) 0.3, Absolute Neuts (auto)9.6 H, Absolute Lymphs (auto) 0.81 L, Nucleated RBC % 0, Sodium 129 L, Potassium3.9, Chloride 96 L, Carbon Dioxide 15.6 L, Anion Gap 17 H, BUN 59 H, Creatinine 1.22 H, Estim Creat Clear Calc 40.78 L, Est GFR (MDRD) Non-Af 45 L, BUN/Creatinine Ratio 48.1 H, Glucose 124 H, OcddigyqeeR2f 4.7, Calcium 9.3, Magnesium 2.3 H, Iron 34 L, TIBC 289, Iron Saturation 11.8 L, Unsaturated IBC 255, Ferritin 135, Total Bilirubin 0.52, AST 77 H, ALT 32, Alkaline Phosphatase 86, Troponin T HighSens 26 H, Total Protein 6.9, Albumin 3.9, Globulin 3.1, Albumin/Globulin Ratio 1.3, Lipase 29, TSH2.340, Blood Type O POSITIVE, Antibody Screen NEGATIVE 05/11/25 18:12: Urine Color Straw, Urine Clarity Cloudy, Urine pH 5.0, Ur Specific [place] 1.020, Urine Protein 30 H, Urine Glucose (UA) Normal, Urine Ketones Negative, Urine Occult Blood Negative, Urine Nitrite Negative, Urine Bilirubin Negative, Urine Urobilinogen Normal, Ur Leukocyte Esterase Negative, Urine RBC 0 SEEN, Urine WBC 0-5 SEEN, Ur Squamous Epith Cells 0 SEEN, Amorphous Sediment 1+ URATE, Urine Bacteria 2+, Urine Mucus 0 SEEN 05/11/25 19:44: Lactic Acid 3.2 H* 05/11/25 22:42: Urine Osmolality 715 05/11/25 23:59: Serum Osmolality 293, Lactic Acid 1.3, Serum Folate 32.40 05/12/25 05:18: WBC 9.1, RBC 2.62 L, Hgb 8.1 L, Hct 23.5 L, MCV 89.7, MCH 30.9, MCHC 34.5 D, RDW Std Deviation 45.3 H, RDW Coeff of Papo 14.0, Plt Count 210, MPV 9.4, Immature Gran % (Auto) 0.400, Neut % (Auto) 72.7 H, Lymph % (Auto) 15.4L, [place] % (Auto) 10.1 H, Eos % (Auto) 1.2, Baso % (Auto) 0.2, Absolute Neuts (auto) 6.6, Absolute Lymphs (auto) 1.40, Nucleated RBC % 0, Sodium 132 L, Potassium 3. 9, Chloride 101, Carbon Dioxide 19.3 L, Anion Gap 11, BUN 45 H, Creatinine 0.89, Estim Creat Clear Calc 54.58, Est GFR (MDRD) Non-Af 65, BUN/Creatinine Ratio 50.1 H, Glucose 101 H, Calcium 8.4, Phosphorus 2.9, Total Bilirubin 0.60, AST 65 H, ALT 30, Alkaline Phosphatase 71, Total Protein 5.7 L, Albumin 3.3 L, Globulin 2.4, Albumin/Globulin Ratio 1.4, Triglycerides 78, Cholesterol 118, LDL Cholesterol, Calc 44, VLDL Cholesterol 16, HDL Cholesterol 59, Cholesterol/HDL Ratio 2.00 ABG Data ABG results: ABG 05/11/25 19:57 Specimen Type JUDY Sample Site Not entered VBG pH 7.37 VBG pO2 138 H VBG HCO3 19 L VBG Total CO2 21 L VBG O2 Sat (Calc) 99 H VBG Base Excess -6 L POC Mix VBG pCO2 Pt Tmp 33.5 L O2 Delivery Device Not entered Radiography Diagnostic Testing: Radiology Impression Brain CT 05/11/25 17:47 IMPRESSION: 1. No evidence of acute intracranial pathology. 2. Moderate-advanced volume loss and chronic small-vessel ischemic changes. Reading Location: [id number] Abdomen/Pelvis CT 05/11/25 21:25 IMPRESSION: Possible ventral abdominal wall cellulitis. Advise correlation. [facility] proximal humerus fracture at the neck. minimally displaced. Assessment & Plan Assessment/Plan (1) Closed fracture of right proximal humerus: PLAN: 79 yr F with multiple PMHX with right proximal humerus fracture minimally displaced. I recommend nonoperative treatment with a sling and follow-up as an outpatient once the medical issues have stabilized. 05/12/25 0829 Cosigner Signature (if applicable): CC: ~ Signed [facility]07-17-2025 History and physical note Author Ifeanyi Paula [facility] Note Date/Time May 12, 2025 6:18 am [facility] Medical Records Department [address] [place] [address] H&P Exam - Hospitalist 05/11/252031 MR#: [id number] Acct: [id number] Name: KATH ARRIAGA Rep #:[id number] : 1945 79 From: Ifeanyi Jurado DO PCP: Dr. Deb Yusuf MD Status:AD M IN Location: [facility] [place] [id number] HPI - General General Date of Admission: 05/11/25 Date of Service: 05/11/25 Chief Complaint: Generalized Weakness with Inability to Care for Herself at Home. 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 6 hours prn who presents to [facility] ER complaining of generalized weakness with inabilityto care for self at home. Ms. Arriaga is very eydf-un-mjpfsxq but she reports her acute symptoms began almostimmediately after breaking her dominant arm causing her to have great difficultymobilizing at home with a rolling walker she is using as a wheelchair. Her family has noted progressively worsening generalized weakness and they encouraged her to come to the hospital because she can no longer care for herself. They also noted she is incontinent of urine and is eating minimal foodbut does take a variety of dietary supplements. For her part, the patient is reluctantly agreeable to admission and possible ECF placement though she does not like it. There was no reported fever, chills, nausea, vomiting, abdominal pain, diarrhea, constipation, chest pain, shortness of breath, palpitations, heart racing, dysuria, hematuria, headache or rash. In the ER she was noted to have a highly elevated BUN of 59 mg/dL with a normal serum creatinine of 1.22 mg/dL suggestive of possible occult upper GI bleed and low hemoglobin of 9.9 g/dL present on admission with further laboratory evidence of Leukocytosis of 11.5K along with Lactic Acidosis of 3.2 mmol/L both present on admission in addition to mild Hyponatremia of 129 mmol/L in the setting of previously known SIADH with an elevated anion gap of 17 and a low carbon dioxide level of 15.6 mmol/L all culminating to cause Generalized Weakness with patient unable to carefor self at home. She was then admitted to the general medical floor with telemetric monitoring for status expected to extend beyond 2 midnights. [facility] Medical History Atherosclerosis of coronary artery of ak chin heart without angina pectoris Obstructive sleep apnea Abnormal nuclear stress test Home Medications ?Medication ?Instructions ?Recorded ?Last Taken ?Type levothyroxine 75 mcg tablet 75 mcg PO DAILY thyroid 05/10/25 History losartan 50 mg tablet 50 mg PO DAILY bp 03/15/19 0 05/10/25 History diphenhydramine HCl 25 mg capsule 25 mg PO QDAY PRN al lergies 07/12/19 11/07/20 History (Benadryl) duloxetine 60 mg capsule,delayed 60 mg PO DAILY depres jovani 07/13/19 05/10/25 History release acetaminophen 500 mg tablet 1,000 mg PO Q8H PRN Pain 1 -10 Or 08/15/20 05/10/25 History Fever aspirin 81 mg chewable tablet 81 mg PO DAILY DVT Proph ylaxis 08/15/20 05/10/25 History calcium 500 mg (as 1 tab PO BIDCM 08/30/2010/27 Rx carbonate)-vitamin D3 5 mcg (200 unit) tablet esomeprazole magnesium 40 mg 40 mg PO 0600,1700 05/10/25 Rx capsule,delayed release ferrous sulfate 27 mg iron tablet 27 mg PO DAILY SUPPL EMENT 11/08/20 05/10/25 History meloxicam 15 mg tablet 15 mg PO DAILY PRN PRN Pain 1-10 11/08/20 05/10/25 History Or Fever rosuvastatin 10 mg tablet 10 mg PO DAILY cholesterol # 90 tabs 05/06/24 05/10/25 Rx hydrocodone-acetaminophen 5-325mg 1 tab PO Q6H PRN PRN Pain 3 days 05/08/25 Unknown Rx 5mg-325mg #10 TABLETS jbknadb-fycgyknqorpij-sgkqnpjv 250 1 tab PO Q6H PRN he adache 05/11/25 Unknown History mg-250 mg-65 mg tablet (Excedrin Extra Strength) cyanocobalamin (vitamin B-12) 3,000 mcg PO DAILY suppl ement 05/11/25 05/10/25 History 1,000 mcg tablet,extended release (Vitamin B-12 ER) gabapentin 100 mg capsule 100 mg PO BID 05/11/25 Unkno wn History loperamide 2 mg capsule 2 mg PO Q6H PRN diarrhea Unknown History (Anti-Diarrheal (loperamide)) multivitamin (Daily Multi-Vitamin 1 tab PO DAILY suppl ement 05/11/25 05/10/25 History tablet) Allergy/AdvReac Type Severity Reaction Status Date / [...] quit date: 10/27/82 pack-years: 20 ROS ROS Narrative Review of Systems: Constitutional: Patient admits to generalized weakness but she denies fever or chills. Eyes: Patient denies changes in vision or discharge from eyes. ENT: Patient denies runny nose, sore throat or ear pain. Resp: Patient denies shortness of breath or cough. CV: Patient denies chest pain, palpitations, heart racing or lower extremity edema. GI: Patient denies abdominal pain, nausea, vomiting, diarrhea or constipation. : Patient admits to being incontinent of urine but she denies dysuria or hematuria. MSK: Patient admits to ongoing Right upper extremity pain after recent fracture in addition to progressively worsening generalized weakness as per HPI. Skin: Patient denies rash, abscess, wounds or jaundice. Psych: Patient denies symptoms of uncontrolled depression or anxiety. Neuro: Patient denies headache, paresthesias or focal neurologic deficits. Allergy: Patient lip swelling, tongue swelling or urticaria. Hematology: Patient denies easy bleeding or easy bruisability. Endocrinology: Patient denies polyuria, polydipsia, polyphagia or heat/cold intolerance. 14 point ROS otherwise negative except for positives noted above in HPI. Vital Signs Vital Signs Vital Signs: 05/11/25 16:54 05/11/25 17:40 05/11/25 [...] Pulse Ox 99 100 Oxygen Delivery Method Weight Weight: 212 lb 11.937 oz Body Mass Index (BMI) 36.5 Physical Exam Const alert, oriented x3 and no apparent distress Constitutional Narrative: Obese and nontoxic in appearance. Patient is very psnc-hw-cwtlhzq. General Appearance: cooperative HEENT normocephalic, head/scalp atraumatic, hearing grossly normal bilaterally and moist oral mucous membranes HEENT Narrative: Patient is very uicm-ga-tenbryj. Eyes PERRL, EOMs intact bilaterally and conjunctivae normal Neck no lymphadenopathy, supple and no JVD Resp normal respiratory effort, no retractions, no use of accessory muscles and clearto auscultation bilaterally Cardio regular rate and regular rhythm GI normal to inspection, nondistended, normoactive bowel sounds, soft to palpation,non-tender and non-distended GI Narrative: Obese. Extremity normal to inspection, full ROM and no clubbing, cyanosis or edema Skin Skin Narrative: Patient has no evidence of rash, abscess, wounds or jaundice. Neuro oriented x3, CN's II-XII intact bilaterally, moves all extremities and no focal motor deficits Sensorium / Orientation: awake, alert, oriented to person, oriented to place andoriented to time Speech: speech normal Psych affect normal Results Medical Records Data Attestation: I reviewed the patient's medical records Lab / Micro Data Attestation: I reviewed the patient's lab results. 05/11/25 17:31 05/11/25 17:31 Labs: Laboratory Results - last 24 hr 05/11/25 17:31: WBC 11.5 H, RBC 3.22 L, Hgb 9.9 L, Hct 30.3 L, MCV 94.1, MCH 30.7, MCHC 32.7, RDW Std Deviation 48.0 H, RDW Coeff of Papo 14.0, Plt Count 233,MPV 9.4, Immature Gran % (Auto) 0.300, Neut % (Auto) 83.7 H, Lymph % (Auto) 7.0 L, [place] % (Auto) 8.4, Eos % (Auto) 0.3, Baso % (Auto) 0.3, Absolute Neuts (auto)9.6 H, Absolute Lymphs (auto) 0.81 L, Nucleated RBC % 0, Sodium 129 L, Potassium3.9, Chloride 96 L, Carbon Dioxide 15.6 L, Anion Gap 17 H, BUN 59 H, Creatinine 1.22 H, Estim Creat Clear Calc 40.78 L, Est GFR (MDRD) Non-Af 45 L, BUN/Creatinine Ratio 48.1 H, Glucose 124 H, Calcium 9.3, Total Bilirubin 0.52, AST 77 H, ALT 32, Alkaline Phosphatase 86, Troponin T High Sens 26 H, Total Protein 6.9, Albumin 3.9, Globulin 3.1, Albumin/Globulin Ratio 1.3, Lipase 29 05/11/25 18:12: Urine Color Straw, Urine Clarity Cloudy, Urine pH 5.0, Ur Specific [place] 1.020, Urine Protein 30 H, Urine Glucose (UA) Normal, Urine Ketones Negative, Urine Occult Blood Negative, Urine Nitrite Negative, Urine Bilirubin Negative, Urine Urobilinogen Normal, Ur Leukocyte Esterase Negative, Urine RBC 0 SEEN, Urine WBC 0-5 SEEN, Ur Squamous Epith Cells 0 SEEN, Amorphous Sediment 1+ URATE, Urine Bacteria 2+, Urine Mucus 0 SEEN 05/11/25 19:44: Lactic Acid 3.2 H* ABG Data ABG results: ABG 05/11/25 19:57 Specimen Type JUDY Sample Site Not entered VBG pH 7.37 VBG pO2 138 H VBG HCO3 19 L VBG Total CO2 21 L VBG O2 Sat (Calc) 99 H VBG Base Excess -6 L POC Mix VBG pCO2 Pt Tmp 33.5 L O2 Delivery Device Not entered Imaging Radiology Impression Brain CT 05/11/25 17:47 IMPRESSION: 1. No evidence of acute intracranial pathology. 2. Moderate-advanced volume loss and chronic small-vessel ischemic changes. Reading Location: [id number] Imaging Services [address] [place], [place] [id number] Abdomen/Pelvis W IV Cont ONLY MR#: [id number] Acct: [id number] Name: KATH ARRIAGA Rep #: [id number] : 1945 F 79 From: Evert Lacy MD PCP: Dr. Deb Yusuf MD Status: ADM IN Study: Abdomen/Pelvis W IV Cont ONLY Date of Exam: 05/11/25 Exam# [id number] Ordering Dr: Ifeanyi Shaikh DO PROCEDURE: ABDOMEN/PELVIS W IV CONT ONLY 05/11/2025 REASON FOR EXAM: HIGHLY ELEVATED BUN/CREAT RATIO. ? BLEED. TECHNIQUE: ABDOMEN/PELVIS W IV CONT ONLY Coronal and Sagittal reconstruction series were provided. CONTRAST: Isovue 370 VOLUME: 94 mL One or more dose reduction techniques were used (e.g., Automated exposure control, adjustment of the mA and/or kV according to patient size, use of iterative reconstruction technique. RADIATION DOSE SUMMARY: CTDlvol: 33 mGy DLP: 1155 mGycm COMPARISON: 11/08/2020 FINDINGS: Under aerated lung bases. Normal heart size. Diffuse hepatic steatosis. Subcentimeter liver hypodensity favoring benign etiology. Status post cholecystectomy. Unremarkable pancreas, spleen, adrenal glands, kidneys. No hydronephrosis. Normal bladder. Unremarkable uterus and ovaries. No retroperitoneal or pelvic adenopathy. No free air. Nonobstructed bowel. No signs of appendicitis. Diverticulosis. No acute large bowel findings. Status post bilateral THR. Lumbar spine scoliosis and degeneration. Possible cellulitis, ventral abdominal wall, series 2, image 55. CT/Abdomen/Pelvis W IV Cont ONLY IMPRESSION: Possible ventral abdominal wall cellulitis. Advise correlation. Reading Location: [place] [address] CC: Dr. Ifeanyi Shaikh DO; Dr. 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 Highly elevated BUN of 59 mg/dL with a normal serum creatinine of 1.22 mg/dLsuggestive of possible occult upper GI bleed and low hemoglobin of 9.9 g/dL and BUN/creatinine ratio of 48.1 present on admission - Admit to general medical floor telemetry monitoring. Hemoccult stools and check iron studies, B12 and folate levels. Type & screen blood transfuse for hemoglobin less than 7 g/dL. Check CT scan of abdomen pelvis with IV contrast to evaluate for possible underlying bleeding. 2. Leukocytosis of 11.5K along with Lactic Acidosis of 3.2 mmol/L both present on admission complicating #1 - Patient has no obvious infection with negative urinalysis noted on admission. Treat conservatively with volume resuscitation and recheck CBC and lactic acid levels to follow trend. 3. Hyponatremia of 129 mmol/L in the setting of previously known SIADH with an elevated anion gap of 17 and a low carbon dioxide level of 15.6 mmol/L compounding #1 & #2 - Give NS IV fluid at 70 cc/hour x 1 L. Check serum and urine osmolality. Urine specific gravity 1.020 notably in normal range. A review of patient's medications does not show any obvious culprit agent to causethis type of metabolic disturbance. 4. Generalized Weakness with patient unable to care for self at home after recent fall with subsequent RUE fracture adding to the medical complexity of #1 - #3 - PT/OT and Case Management consult treat on rounds in a.m. for further recommendations regarding possible ECF placement with subacute rehabilitation, with help appreciated in advance. 5. Obesity (class II); with BMI of 36.5 this admission plus HELENA; on CPAP addingto the burden of disease outlined from #1 - #4 - Weight loss will be recommended. Check TSH. Resume nocturnal CPAP as previous. This complicates her case and may hamper recovery. 6. Recent scalding with hot coffee on abdomen with CT scan concerning for possible cellulitis - Patient has no signs of acute infection at this time so antibiotics were not initiated. 7. Essential hypertension; on losartan - Maintain present therapy. 8. Hyperlipidemia; on rosuvastatin - Hold statin in case of myotoxicity contributing to #4 and monitor for improvement. Check lipid profile. 9. Hypothyroidism; on levothyroxine - Continue levothyroxine and check TSH. 10. Former tobacco abuse - Noted. 11. CAD; s/p proximal-diagonal stent (2019) on BASA daily - Hold BASA for now in light of #1 with possible PUD/GIB. 12. Neuropathy; on gabapentin twice daily - Current therapy to be resumed as previous. 13. MORENO; on ferrous sulfate - Continue ferrous sulfate and check iron studies as outlined in #1. 14. History of MRSA - Noted. 15. Depression with anxiety; on duloxetine - Maintain present treatment. 16. History of pancolitis - Noted with CT pending for #1. 17. GERD; on esomeprazole twice daily - Change PPI to IV until bleeding definitively ruled out. 18. RA - Stable with no evidence of flare at this time. 19. OA; s/p Left TKR (2016) and bilateral THR's on meloxicam and recent RUE fracture; on prn oxycodone-acetaminophen q. 6 hours prn - Give acetaminophen as needed for hpvn-il-jjrxveys (level 1-5/10) pain or fever. Give oxycodone-acetaminophen as needed for severe (level 6-10/10) pain. 20. DVT/GI prophylaxis - SCD's only in light of #1 creating contraindication tochemoprophylaxis. Pantoprazole 40 mg IV twice daily. Total time: Approximately (but not less than) 75 minutes. Charges/Coding Visit Charges Inpatient E&M: 25577 Init Hosp L3 05/12/25 0618 <Electronically signed by Ifeanyi Shaikh DO> Cosigner Signature (if applicable): CC: Dr. Ifeanyi Shaikh DO; Dr. Deb Yusuf MD~ Signed [facility] Work Phone: [phone] 407-459507-17-2025 History and physical note [facility] Medical Records Department [address] [place] [address] H&P Exam - Hospitalist 05/11/252031 MR#: [id number] Acct: [id number] Name: KATH ARRIAGA Rep #:[id number] : 1945 79 From: Ifeanyi Jurado DO PCP: Dr. Deb Yusuf MD Status:AD M IN Location: [facility] [id number] HPI - General General Date of Admission: 05/11/25 Date of Service: 05/11/25 Chief Complaint: Generalized Weakness with Inability to Care for Herself at Home. 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 6 hours prn who [facility] complaining of generalized weakness with inabilityto care for selfat home. Ms. Arriaga is very tfqx-av-contvcg but she reports her acute symptoms began almostimmediately after breaking her dominant arm causing her to have great difficultymobilizing at home with a rolling walker she is using as a wheelchair. Her family has noted progressively worsening generalized weakness and they encouraged her to come to the hospital because she can no longer care for herself. They also noted she is incontinent of urine and is eating minimal foodbut does take a variety of dietary supplements. For her part, the patient is reluctantly agreeable to admission and possible ECF placement though she does not like it. There was no reported fever, chills, nausea, vomiting, abdominal pain, diarrhea, constipation, chest pain, shortness of breath, palpitations, heart racing, dysuria, hematuria, headache or rash. In the ER she was noted to have a highly elevated BUN of 59 mg/dL with a normal serum creatinine of 1.22 mg/dL suggestive of possible occult upper GI bleed and low hemoglobin of 9.9 g/dL present on admission with further laboratory evidence of Leukocytosis of 11.5K along with Lactic Acidosis of 3.2 mmol/L both present on admission in addition to mild Hyponatremia of 129 mmol/L in the setting of previously known SIADH with an elevated anion gap of 17 and a low carbon dioxidelevel of 15.6 mmol/L all culminating to cause Generalized Weakness with patient unable to carefor self at home. She was then admitted to the general medical floor with telemetric monitoring for status expected to extend beyond 2 midnights. [facility] Medical History Atherosclerosis of coronary artery of ak chin heart without angina pectoris Obstructive sleep apnea Abnormal nuclear stress test Home Medications ?Medication ?Instructions ?Recorded ?Last Taken ?Type levothyroxine 75 mcg tablet 75 mcg PO DAILY thyroid 05/10/25 History losartan 50 mg tablet 50 mg PO DAILY bp 03/15/19 0 05/10/25 History diphenhydramine HCl 25 mg capsule 25 mg PO QDAY PRN al lergies 07/12/19 11/07/20 History (Benadryl) duloxetine 60 mg capsule,delayed 60 mg PO DAILY depres jovani 07/13/19 05/10/25 History release acetaminophen 500 mg tablet 1,000 mg PO Q8H PRN Pain 1 -10 Or 08/15/20 05/10/25 History Fever aspirin 81 mg chewable tablet 81 mg PO DAILY DVT Proph ylaxis 08/15/20 05/10/25 History calcium 500 mg (as 1 tab PO BIDCM 08/30/2010/27 Rx carbonate)-vitamin D3 5 mcg (200 unit) tablet esomeprazole magnesium 40 mg 40 mg PO 0600,1700 05/10/25 Rx capsule,delayed release ferrous sulfate 27 mg iron tablet 27 mg PO DAILY SUPPL EMENT 11/08/20 05/10/25 History meloxicam 15 mg tablet 15 mg PO DAILY PRN PRN Pain 1-10 11/08/20 05/10/25 History Or Fever rosuvastatin 10 mg tablet 10 mg PO DAILY cholesterol # 90 tabs 05/06/24 05/10/25 Rx hydrocodone-acetaminophen 5-325mg 1 tab PO Q6H PRN PRN Pain 3 days 05/08/25 Unknown Rx 5mg-325mg #10 TABLETS dxjuvmq-pitagvcjllbbe-qhqqgypb 250 1 tab PO Q6H PRN he adache 05/11/25 Unknown History mg-250 mg-65 mg tablet (Excedrin Extra Strength) cyanocobalamin (vitamin B-12) 3,000 mcg PO DAILY suppl ement 05/11/25 05/10/25 History 1,000 mcg tablet,extended release (Vitamin B-12 ER) gabapentin 100 mg capsule 100 mg PO BID 05/11/25 Unkno wn History loperamide 2 mg capsule 2 mg PO Q6H PRN diarrhea Unknown History (Anti-Diarrheal (loperamide)) multivitamin (Daily Multi-Vitamin 1 tab PO DAILY suppl ement 05/11/25 05/10/25 History tablet) Allergy/AdvReac Type Severity Reaction Status Date / [...] quit date: 10/27/82 pack-years: 20 ROS ROS Narrative Review of Systems: Constitutional: Patient admits to generalized weakness but she denies fever or chills. Eyes: Patient denies changes in vision or discharge from eyes. ENT: Patient denies runny nose, sore throat or ear pain. Resp: Patient denies shortness of breath or cough. CV: Patient denies chest pain, palpitations, heart racing or lower extremity edema. GI: Patient denies abdominal pain, nausea, vomiting, diarrhea or constipation. : Patient admits to being incontinent of urine but she denies dysuria or hematuria. MSK: Patient admits to ongoing Right upper extremity pain after recent fracture in addition to progressively worsening generalized weakness as per HPI. Skin: Patient denies rash, abscess, wounds or jaundice. Psych: Patient denies symptoms of uncontrolled depression or anxiety. Neuro: Patient denies headache, paresthesias or focal neurologic deficits. Allergy: Patient lip swelling, tongue swelling or urticaria. Hematology: Patient denies easy bleeding or easy bruisability. Endocrinology: Patient denies polyuria, polydipsia, polyphagia or heat/cold intolerance. 14 point ROS otherwise negative except for positives noted above in HPI. Vital Signs Vital Signs Vital Signs: 05/11/25 16:54 05/11/25 17:40 05/11/25 [...] Pulse Ox 99 100 Oxygen Delivery Method Weight Weight: 212 lb 11.937 oz Body Mass Index (BMI) 36.5 Physical Exam Const alert, oriented x3 and no apparent distress Constitutional Narrative: Obese and nontoxic in appearance. Patient is very ayrh-ho-povqdlk. General Appearance: cooperative HEENT normocephalic, head/scalp atraumatic, hearing grossly normal bilaterally and moist oral mucous membranes HEENT Narrative: Patient is very hzrb-pv-eofirwe. Eyes PERRL, EOMs intact bilaterally and conjunctivae normal Neck no lymphadenopathy, supple and no JVD Resp normal respiratory effort, no retractions, no use of accessory muscles and clearto auscultation bilaterally Cardio regular rate and regular rhythm GI normal to inspection, nondistended, normoactive bowel sounds, soft to palpation,non-tender and non-distended GI Narrative: Obese. Extremity normal to inspection, full ROM and no clubbing, cyanosis or edema Skin Skin Narrative: Patient has no evidence of rash, abscess, wounds or jaundice. Neuro oriented x3, CN's II-XII intact bilaterally, moves all extremities and no focal motor deficits Sensorium / Orientation: awake, alert, oriented to person, oriented to place andoriented to time Speech: speech normal Psych affect normal Results Medical Records Data Attestation: I reviewed the patient's medical records Lab / Micro Data Attestation: I reviewed the patient's lab results. 05/11/25 17:31 05/11/25 17:31 Labs: Laboratory Results - last 24 hr 05/11/25 17:31: WBC 11.5 H, RBC 3.22 L, Hgb 9.9 L, Hct 30.3 L, MCV 94.1, MCH 30.7, MCHC 32.7, RDW Std Deviation 48.0 H, RDW Coeff of Papo 14.0, Plt Count 233,MPV 9.4, Immature Gran % (Auto) 0.300, Neut % (Auto) 83.7 H, Lymph % (Auto) 7.0 L, [place] % (Auto) 8.4, Eos % (Auto) 0.3, Baso % (Auto) 0.3, Absolute Neuts (auto)9.6 H, Absolute Lymphs (auto) 0.81 L, Nucleated RBC % 0, Sodium 129 L, Potassium3.9, Chloride 96 L, Carbon Dioxide 15.6 L, Anion Gap 17 H, BUN 59 H, Creatinine 1.22 H, Estim Creat Clear Calc 40.78 L, Est GFR (MDRD) Non-Af 45 L, BUN/Creatinine Ratio 48.1 H, Glucose 124 H, Calcium 9.3, Total Bilirubin 0.52, AST 77 H, ALT 32, Alkaline Phosphatase 86, Troponin T High Sens 26 H, Total Protein 6.9, Albumin 3.9, Globulin 3.1, Albumin/Globulin Ratio 1.3, Lipase 29 05/11/25 18:12: Urine Color Straw, Urine Clarity Cloudy, Urine pH 5.0, Ur Specific [place] 1.020, Urine Protein 30 H, Urine Glucose (UA) Normal, Urine Ketones Negative, Urine Occult Blood Negative, Urine Nitrite Negative, Urine Bilirubin Negative, Urine Urobilinogen Normal, Ur Leukocyte Esterase Negative, Urine RBC 0 SEEN, Urine WBC 0-5 SEEN, Ur Squamous Epith Cells 0 SEEN, Amorphous Sediment 1+ URATE, Urine Bacteria 2+, Urine Mucus 0 SEEN 05/11/25 19:44: Lactic Acid 3.2 H* ABG Data ABG results: ABG 05/11/25 19:57 Specimen Type JUDY Sample Site Not entered VBG pH 7.37 VBG pO2 138 H VBG HCO3 19 L VBG Total CO2 21 L VBG O2 Sat (Calc) 99 H VBG Base Excess -6 L POC Mix VBG pCO2 Pt Tmp 33.5 L O2 Delivery Device Not entered Imaging Radiology Impression Brain CT 05/11/25 17:47 IMPRESSION: 1. No evidence of acute intracranial pathology. 2. Moderate-advanced volume loss and chronic small-vessel ischemic changes. Reading Location: [facility] Imaging Services [address] [place] [address] Abdomen/Pelvis W IV Cont ONLY MR#: [id number] Acct: [id number] Name: KATH ARRIAGA Rep #: [id number] : 1945 F 79 From: Evert Lacy MD PCP: Dr. Deb Yusuf MD Status: ADM IN Study: Abdomen/Pelvis W IV Cont ONLY Date of Exam: 05/11/25 Exam# [id number] Ordering Dr: Ifeanyi Shaikh DO PROCEDURE: ABDOMEN/PELVIS W IV CONT ONLY 05/11/2025 REASON FOR EXAM: HIGHLY ELEVATED BUN/CREAT RATIO. ? BLEED. TECHNIQUE: ABDOMEN/PELVIS W IV CONT ONLY Coronal and Sagittal reconstruction series were provided. CONTRAST: Isovue 370 VOLUME: 94 mL One or more dose reduction techniques were used (e.g., Automated exposure control, adjustment of the mA and/or kV according to patient size, use of iterative reconstruction technique. RADIATION DOSE SUMMARY: CTDlvol: 33 mGy DLP: 1155 mGycm COMPARISON: 11/08/2020 FINDINGS: Under aerated lung bases. Normal heart size. Diffuse hepatic steatosis. Subcentimeter liver hypodensity favoring benign etiology. Status post cholecystectomy. Unremarkable pancreas, spleen, adrenal glands, kidneys. No hydronephrosis. Normal bladder. Unremarkable uterus and ovaries. No retroperitoneal or pelvic adenopathy. No free air. Nonobstructed bowel. No signs of appendicitis. Diverticulosis. No acute large bowel findings. Status post bilateral THR. Lumbar spine scoliosis and degeneration. Possible cellulitis, ventral abdominal wall, series 2, image 55. CT/Abdomen/Pelvis W IV Cont ONLY IMPRESSION: Possible ventral abdominal wall cellulitis. Advise correlation. Reading Location: [facility] CC: Dr. Ifeanyi Shaikh DO; Dr. 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 Highly elevated BUN of 59 mg/dL with a normal serum creatinine of 1.22 mg/dLsuggestive of possible occult upper GI bleed and low hemoglobin of 9.9 g/dL and BUN/creatinine ratio of 48.1 present on admission - Admit to general medical floor telemetry monitoring. Hemoccult stools and check iron studies, B12 and folate levels. Type & screen blood transfuse for hemoglobin less than 7 g/dL. Check CT scan of abdomen pelvis with IV contrast to evaluate for possible underlying bleeding. 2. Leukocytosis of 11.5K along with Lactic Acidosis of 3.2 mmol/L both present on admission complicating #1 - Patient has no obvious infection with negative urinalysis noted on admission. Treat conservatively with volume resuscitation and recheck CBC and lactic acid levels to follow trend. 3. Hyponatremia of 129 mmol/L in the setting of previously known SIADH with an elevated anion gap of 17 and a low carbon dioxide level of 15.6 mmol/L compounding #1 & #2 - Give NS IV fluid at 70 cc/hour x 1 L. Check serum and urine osmolality. Urine specific gravity 1.020 notably in normal range. A review of patient's medications does not show any obvious culprit agent to causethis type of metabolic disturbance. 4. Generalized Weakness with patient unable to care for self at home after recent fall with subsequent RUE fracture adding to the medical complexity of #1 - #3 - PT/OT and Case Management consult treat on rounds in a.m. for further recommendations regarding possible ECF placement with subacute rehabilitation, with help appreciated in advance. 5. Obesity (class II); with BMI of 36.5 this admission plus HELENA; on CPAP addingto the burden of disease outlined from #1 - #4 - Weight loss will be recommended. Check TSH. Resume nocturnal CPAP as previous. This complicates her case and may hamper recovery. 6. Recent scalding with hot coffee on abdomen with CT scan concerning for possible cellulitis - Patient has no signs of acute infection at this time so antibiotics were not initiated. 7. Essential hypertension; on losartan - Maintain present therapy. 8. Hyperlipidemia; on rosuvastatin - Hold statin in case of myotoxicity contributing to #4 and monitor for improvement. Check lipid profile. 9. Hypothyroidism; on levothyroxine - Continue levothyroxine and check TSH. 10. Former tobacco abuse - Noted. 11. CAD; s/p proximal-diagonal stent (2019) on BASA daily - Hold BASA for now in light of #1 with possible PUD/GIB. 12. Neuropathy; on gabapentin twice daily - Current therapy to be resumed as previous. 13. MORENO; on ferrous sulfate - Continue ferrous sulfate and check iron studies as outlined in #1. 14. History of MRSA - Noted. 15. Depression with anxiety; on duloxetine - Maintain present treatment. 16. History of pancolitis - Noted with CT pending for #1. 17. GERD; on esomeprazole twice daily - Change PPI to IV until bleeding definitively ruled out. 18. RA - Stable with no evidence of flare at this time. 19. OA; s/p Left TKR (2015) and bilateral THR's on meloxicam and recent RUE fracture; on prn oxycodone-acetaminophen q. 6 hours prn - Give acetaminophen as needed for zpip-so-obnxknnk (level 1-5/10) pain or fever. Give oxycodone- acetaminophen as needed for severe (level 6-10/10) pain. 20. DVT/GI prophylaxis - SCD's only in light of #1 creating contraindication tochemoprophylaxis. Pantoprazole 40 mg IV twice daily. Total time: Approximately (but not less than) 75 minutes. Charges/Coding Visit Charges Inpatient E&M: 40027 Init Hosp L3 05/12/25 0618 Cosigner Signature (if applicable): CC: Dr. Ifeanyi Shaikh DO; Dr. Deb Yusuf MD~ Signed [facility]07-16-2025 Discharge summary Author Virgil Corrales [facility] Note Date/Time May 11, 2025 9:21 pm [facility] Medical Records Department [address] [place] [address] Emergency Department Summary 05/11/25 MR#: [id number] Acct: [id number] Name: KATH ARRIAGA Rep #:[id number] : 1945 79 From: Virgil Martinez PCP: Dr. Deb Yusuf MD Status:AD M IN Location: [place] [id number] [facility] History of Present Illness Chief Complaint: Weakness PFSH [facility] Medical History Atherosclerosis of coronary artery of ak chin heart without angina pectoris Obstructive sleep apnea [...] Pain 1-10 11/08/20 11/08/20 History Or Fever ulqtqmos-debq-hgxs 8 mg-folic 400 1 tab PO DAILY [...] Pulse Ox 99 100 Oxygen Delivery Method MDM MDM MDM Narrative Medical decision making narrative: HISTORY OF [...] Patient's family Consults: Internal medicine (Dr. Mace) MDM Narrative: The patient was initially hemodynamically stable, afebrile and nontoxic- appearing. Initial exam with bruising about the right [...] Elevated lactic acid level Dispo: Admit to [facility] This note was generated with Mixertech dictation software. It may contain incorrectwords, spelling, [...] 83.7 H Lymph % (Auto) 7.0 L [place] % (Auto) 8.4 Eos % (Auto) 0.3 [...] Clarity Cloudy Urine pH 5.0 Ur Specific [place] 1.020 Urine Protein 30 H Urine Glucose [...] and chronic small-vessel ischemic changes. Reading Location: [facility] Discharge Plan Triage Chief Complaint: Weakness ED Provider: Virgil Corrales Dx/Rx/DC Orders Primary Care Provider: Deb Yusuf What to do if you have Problems For any increased pain, shortness of breath, bleeding, nausea or vomiting, chestpain, or any unexpected problems, contact your Primary Care Provider. Call [facility] ([phone]) or report to the closest Emergency Room. Call 911 if necessary. 05/11/252120 <Electronically signed by Virgil Corrales DO> Cosigner Signature (if applicable): CC: Dr. Deb Yusuf MD ~ Signed [facility] Work Phone: 1(396) 858-682407-16-2025 Evaluation note* Diagnosis Onset Date Resolution Status Admit Date Closed fracture of right proximal humerus acute May 11, 2025 9:10pm Elevated BUN acute May 11, 025 9:10pm Generalized weakness acute May 11, 2025 9:10pm Hyponatremia acute May 11 025 9:10pm Lactic acidosis acute April 9:10pm Leukocytosis acute May 11 025 9:10pm Obesity (BMI 30-39.9) acute Apr 9:10pm SIADH (syndrome of inappropriate ADH production) acute Ju 2024 9:10pm Sleep apnea chronic May 11 9:10pm Fracture of proximal humerus inactiv e May 11, 2025 9:10pm [facility] Work Phone: 1(717) 887-627607-16-2025 Radiology Diagnostic study note [facility] Imaging Services [address] [place] [address] Abdomen/Pelvis W IV Cont ONLY MR#: [id number] Acct: [id number] Name: KATH ARRIAGA Rep #: [id number] : 1945 F 79 From: Nicole Lacy MD PCP: Dr. Deb Yusuf MD Status: AD M IN Study:Abdomen/Pelvis W IV Cont ONLY Date of E xam: 05/11/25 Exam# [id number] Ordering Dr: Ifeanyi Crabtree DO PROCEDURE: ABDOMEN/PELVIS W IV CONT ONLY 05/11/2025 REASON FOR EXAM: HIGHLY ELEVATED BUN/CREAT RATIO. ? BLEED. TECHNIQUE: ABDOMEN/PELVIS W IV CONT ONLY Coronal and Sagittal reconstruction series were provided. CONTRAST: Isovue 370 VOLUME: 94 mL One or more dose reduction techniques were used (e.g., Automated exposure control, adjustment of the mA and/or kV according to patient size, use of iterative reconstruction technique. RADIATION DOSE SUMMARY: CTDlvol: 33 mGy DLP: 1155 mGycm COMPARISON: 11/08/2020 FINDINGS: Under aerated lung bases. Normal heart size. Diffuse hepatic steatosis. Subcentimeter liver hypodensity favoring benign etiology. Status post cholecystectomy. Unremarkable pancreas, spleen, adrenal glands, kidneys. No hydronephrosis. Normal bladder. Unremarkable uterus and ovaries. No retroperitoneal or pelvic adenopathy. No free air. Nonobstructed bowel. No signs of appendicitis. Diverticulosis. No acute large bowel findings. Status post bilateral THR. Lumbar spine scoliosis and degeneration. Possible cellulitis, ventral abdominal wall, series 2, image 55. CT/Abdomen/Pelvis W IV Cont ONLY IMPRESSION: Possible ventral abdominal wall cellulitis. Advise correlation. Reading Location: [place] [address] CC: Dr. Ifeanyi Shaikh DO; Dr. Deb Yusuf MD ~ Assistant Professor Surgical Technology: Signed [facility]07-16-2025 Discharge summary [facility] Medical Records Department [address] [place] [address] Emergency Department Summary 05/11/25 MR#: [id number] Acct: [id number] Name: KATH ARRIAGA Rep #:[id number] : 1945 79 From: Virgil Martinez PCP: Dr. Deb Yusuf MD Status:AD M IN Location: [facility] QU458-9 [facility] History of Present Illness Chief Complaint: [facility] Medical History Atherosclerosis of coronary artery of ak chin heart without angina pectoris Obstructive sleep apnea [...] Pain 1-10 11/08/20 11/08/20 History Or Fever uxyogrbs-ektu-ocnq 8 mg-folic 400 1 tab PO DAILY [...] Pulse Ox 99 100 Oxygen Delivery Method MDM MDM MDM Narrative Medical decision making narrative: HISTORY OF PRESENT ILLNESS: Chief complaint: weakness 79 F history of colitis, exacerbation, hyperlipidemia, CAD, hyponatremia, hypothyroidism, here withdiffuse weakness, unable to care for self. Per patient she has been having more difficulty driving since breaking her dominant arm however she does not necessarily feel that she has to be admitted. Patient's cousin did have a horrible time with her because of excessive weaknesshas been going on forseveral weeks to months however was worsened acutely aftershe broke her arm. They states she needs to stay in the hospital because she cannot take care of herself. The patient is generally agreeable to admission and possible placement although she does not like it. She denies headache, chest pain, s hortness of breath, cough, fever, abdominal pain, urinary [...] nerves II through XII intact,5/5 strength in allpresent extremities. Intact sensation to light touch in [...] Patient's family Consults: Internal medicine (Dr. Mace) [facility] Narrative: The patient was initially hemodynamically stable, afebrile and nontoxic- appearing. Initial exam with bruising about the right upper extremity consistent with humerus fracture. Upper extremity otherwise warm well-perfused and neurovascularly intact. No focal neurodeficits. No focal cardiopulmonary ab normalities. Abdomen soft and nontender I considered the [...] endorgan hypoperfusion likely secondary to dehydration secondary topoor mobility, and failure to thrive Lipase is wnl indicating no pancreatic inflammation. CT scan of the brain negative for ICH High-sensitivity troponin is negative, no evidence of myocardial ischemia Upon re-evaluation the patient remained hemodynamically stable.. She is given 500 cc bolus. Patientis appropriate for admission given she cannot ambulate, [...] alexa blood cultures but did not start empiricantibiotics as I cannot find a definitive source [...] secondary to the patient having high probability ofclinically significant/life threatening deterioration in the patient's condition which required my urgent intervention. Impression: 1. Adult failure to thrive 2. Ambulatory dysfunction 3. Dehydration 4. Elevated lactic acid level Dispo: Admit to [facility] This note was generated with Mixertech dictation software. It may contain incorrectwords, spelling, [...] 83.7 H Lymph % (Auto) 7.0 L [place] % (Auto) 8.4 Eos % (Auto) 0.3 [...] Clarity Cloudy Urine pH 5.0 Ur Specific [place] 1.020 Urine Protein 30 H Urine Glucose [...] and chronic small-vessel ischemic changes. Reading Location: [facility] Discharge Plan Triage Chief Complaint: Weakness ED Provider: Virgil Corrales Dx/Rx/DC Orders Primary Care Provider: Deb Yusuf What to do if you have Problems For any increased pain, shortness of breath, bleeding, nausea or vomiting, chestpain, or any unexpected problems, contact your Primary Care Provider. Call [facility] ([phone]) or report tothe closest Emergency Room. Call 911 if necessary. 05/11/252120 Cosigner Signature (if applicable): CC: Dr. Deb Yusuf MD ~ Signed [facility]07-16-2025 Radiology Diagnostic study note [facility] Imaging Services [address] [place], [place] [address] Brain/Head without Contrast MR#: [id number] Acct: [id number] Name: KATH ARRIAGA Rep #: [id number] : 1945 F 79 From: Jason Godwin MD PCP: Dr. Deb Yusuf MD Status: RE G ER Study:Brain/Head without Contrast Date of Exa m: 05/11/25 Exam# [id number] Ordering Dr: Thuan Corrales DO PROCEDURE: BRAIN/HEAD [...] generalized brain parenchymal volume loss, and chronic small- vessel ischemic changes throughout the supratentorial white matter. Small focus of probable old lacunar infarct in theright basal ganglia.Atherosclerotic vascular calcifications. Absent ak chin ocular lenses. Intact skull base and calvarium. Clear paranasal sinuses and mastoid air cells. CT/Brain/Head without Contrast IMPRESSION: 1. No evidence of acute intracranial pathology. 2. Moderate-advanced volume loss and chronic small-vessel ischemic changes. Reading Location: [id number] CC: Dr. Deb Yusuf MD; Dr. Virgil Corrales DO ~ Assistant Professor Surgical Technology: Signed [facility]07-16-2025 Evaluation note* Diagnosis Onset Date Resolution Status Admit Date Elevated BUN acute May 11 025 8:45pm Generalized weakness acute May 11, 2025 8:45pm Hyponatremia acute May 11 025 8:45pm Lactic acidosis acute April 8:45pm Leukocytosis acute May 11, 025 8:45pm Obesity (BMI 30-39.9) acute Apr 8:45pm SIADH (syndrome of inappropr iate ADH production) acute May 11, 2025 8:45pm Sleep apnea chronic May 11 8:45pm [facility] Work Phone: 1(525) 718-967907-15-2025 Telephone encounter Note* Telephone Encounter - Olga [...] Olga Troy May 10, 2025 2:23 PM [facility]07-15-2025 Miscellaneous Notes* Telephone Encounter - Olga Astudillo [...] 10, 2025 2:23 PM [facility] Discharge summary [facility] Medical Records Department [address] [place] [address] Emergency Department Summary 05/08/25 MR#: [id number] Acct: [id number] Name: GE ARRIAGAANNE Rep #:[id number] : 1945 79 From: Kev Martinez PCP: Dr. Deb Yusuf MD Status:RE G ER Location: ED HPI [...] for Parasthesia, Weakness or Loss of [facility]untion [facility] History (Updated 05/08/25 @ 14:[address] Kev Nelson, DO) Atherosclerosis of coronary artery of ak chin heart without angina pectoris Obstructive sleep apnea [...] Pain 1-10 11/08/20 11/08/20 History Or Fever nwmkrgnj-bqqd-icha 8 mg-folic 400 1 tab PO DAILY [...] (Updated 05/08/25 @ 14:[address] Kev Nelson, DO) S/P ORIF (open reduction internal fixation) [...] given a prescription for short course of [place]. Patient was instructed to use ice to the area. [facility] [...] 27 MG tablet 27 mg PO DAILY wvvwqdnk-zob-rozu-FA-vit K-lut 1 EACH tablet 1 tab PO DAILY metronidazole 500 MG tablet 500 mg PO TID Qty: 21 0RF cefdinir 300 MG capsule 300 mg PO Q12H Qty: 14 0RF clopidogrel 75 mg tablet 75 mg PO DAILY Qty: 30 11RF rosuvastatin 10 mg tablet 10 mg PO DAILY Qty: 90 3RF Primary Care Provider: Deb Yusuf Referrals: Deb Yusuf MD [Primary Care Provider] - 5-7 Days Balta Rosenthal DO [Med Staff - Active Staff] - 3-5 Days Print Language: Qatari Disposition Disposition: Home, Self Care What to do if you have Problems For any increased pain, shortness of breath, bleeding, nausea or vomiting, chestpain, or any unexpected problems, contact your Primary Care Provider. Call [facility] ([phone]) or report tothe closest Emergency Room. Call 911 if necessary. 05/08/25 1714 Cosigner Signature (if applicable): CC: Dr. Deb Yusuf MD ~ Signed [facility]07-13-2025 Radiology Diagnostic study note [facility] Imaging Services [address] [place] [address] Shoulder min 2 Views MR#: [id number] Acct: [id number] Name: KATH ARRIAGA Rep #: [id number] : 1945 F 79 From: Yazmin Talamantes MD PCP: Dr. Deb Yusuf MD Status: RE G ER Study:Shoulder min 2 Views Date of Exam: 05/08/25 Exam# [id number] Ordering Dr: Kev Nelson DO PROCEDURE: SHOULDER [...] CC: Dr. Kev Nelson DO; Dr. Deb Yusuf MD ~ Assistant Professor Surgical Technology: Signed [facility]07-13-2025 Discharge summary Author Kev Nelson [facility] Note Date/Time May 08, 2025 5:14 pm [facility] Medical Records Department [address] [place] [address] Emergency Department Summary 05/08/25 MR#: [id number] Acct: [id number] Name: KATH ARRIAGA Rep #:[id number] : 1945 79 From: Kev Martinez PCP: Dr. Deb Yusuf MD Status:RE G ER Location: ED HPI [...] for Parasthesia, Weakness or Loss of Funtion [facility] Medical History (Updated 05/08/25 @ 14:[address] Kev Nelson DO) Atherosclerosis of coronary artery of ak chin heart without angina pectoris Obstructive sleep apnea Abnormal nuclear stress test Home Medications ?Medication ?Instructions ?Recorded ?Last Taken ?Type levothyroxine 75 mcg tablet 75 mcg PO DAILY thyroid 11/08/20 History losartan 50 mg tablet 50 mg PO DAILY bp 03/15/19 0 11/07/20 History diphenhydramine HCl 25 mg capsule 25 mg PO QDAY PRN al elsagies 07/12/19 11/07/20 History (Benadryl) zolpidem 10 mg [...] Pain 1-10 11/08/20 11/08/20 History Or Fever dvkfnsgs-wchd-meft 8 mg-folic 400 1 tab PO DAILY [...] given a prescription for short course of [place]. Patient was instructed to use ice to the area. Patient was instructed to follow-up with herprimary care physician in 5 to 7 days. [...] 27 MG tablet 27 mg PO DAILY zrsgbkdo-faa-blqs-FA-vit K-lut 1 EACH tablet 1 tab PO DAILY metronidazole 500 MG tablet 500 mg PO TID Qty: 21 0RF cefdinir 300 MG capsule 300 mg PO Q12H Qty: 14 0RF clopidogrel 75 mg tablet 75 mg PO DAILY Qty: 30 11RF rosuvastatin 10 mg tablet 10 mg PO DAILY Qty: 90 3RF Primary Care Provider: Deb Yusuf Referrals: Deb Yusuf MD [Primary Care Provider] - 5-7 Days Balta Rosenthal DO [Med Staff - Active Staff] - 3-5 Days Print Language: Qatari Disposition Disposition: Home, Self Care What to do if you have Problems For any increased pain, shortness of breath, bleeding, nausea or vomiting, chestpain, or any unexpected problems, contact your Primary Care Provider. Call [facility] ([phone]) or report to the closest Emergency Room. Call 911 if necessary. 05/08/254 <Electronically signed by Kev Nelson DO> Cosigner Signature (if applicable): CC: Dr. Deb Yusuf MD ~ Signed [facility] Work Phone: 1(947) 245-320106-18-2025 Telephone encounter Note* Telephone Encounter - Deb Yusuf MD - 04/13/2025 1:01 PM EDT The following approved medication requests have been transmitted electronically. Requested Prescriptions Pending Prescriptions Disp Refills meloxicam (MOBIC) 15 mg tablet 90 tablet 3 Sig: Take 1 tablet by mouth once daily as needed. Deb Yusuf MD [facility]06-18-2025 Miscellaneous Notes* Telephone Encounter - Deb Yusuf MD - 04/13/2025 1:01 PM EDT The following approved medication requests have been transmitted electronically. Requested Prescriptions Pending Prescriptions Disp Refills meloxicam (MOBIC) 15 mg tablet 90 tablet 3 Sig: Take 1 tablet by mouth once daily as needed. Deb Yusuf MD * Telephone Encounter - Dai Hercules [...] 12, 2025 1:21 PM documented in this encounterWilson Health06-17-2025 Telephone encounter Note * Telephone Encounter - [...] Dai Hercules April 12, 2025 1:21 PM [facility]06-03-2025 Telephone encounter Note* Telephone Encounter - Syeda Solomon RN - 03/29/2025 2:23 PM EDT Patient returns call and provider message below reviewed with verbalized understanding. Syeda Solomon RN [facility]06-03-2025 Miscellaneous Notes* Telephone Encounter - Syeda Solomon RN - 03/29/2025 2:23 PM EDT Patient returns call and provider message below reviewed with verbalized understanding. Syeda Solomon RN * Telephone Encounter - Clare Carlos LPN - 03/29/2025 9:54 AM EDT LEFT MESSAGE FOR PATIENT TO CALL OFFICE. * Telephone Encounter - Olga Stokes APRN.CNP - 03/29/2025 7:33 AM EDT Great, [...] mid conversation. * Telephone Encounter - Olga Stokes APRN.CNP - 03/28/2025 10:37 AM EDT Labs are stable but iron is still at the low end. Please see which iron supplement she is taking and let me know. Thanks! documented in this encounterWilson Health06-03-2025 Telephone encounter Note * Telephone Encounter - Clare Carlos LPN - 03/29/2025 9:54 AM EDT LEFT MESSAGE FOR PATIENT TO CALL OFFICE. [facility]06-03-2025 Telephone encounter Note* Telephone Encounter - Olga Stokes APRN.AVA - 03/29/2025 7:33 AM EDT Great, let her know to increase the ferrous gluconate to twice daily and this will help her iron levels. [facility]06-02-2025 Telephone encounter Note* Telephone Encounter - Joan Dawn LPN - 03/28/2025 4:49 PM EDT Pt calls back to report multivitamin has 18 mg and ferrous gluconate has 28 mg daily. Joan Dawn LPN [facility]06-02-2025 Telephone encounter Note* Telephone Encounter - Clare Carlos LPN - 03/28/2025 4:39 PM EDT Trouble understanding patient due to static. She is taking ferrous gluconate 38 mg daily and a multivitamin that has 18 mg of iron daily. Call was dropped during mid conversation. [facility]06-02-2025 Telephone encounter Note* Telephone Encounter - Olga Stokes APRN.CNP - 03/28/2025 10:37 AM EDT Labs are stable but iron is still at the low end. Please see which iron supplement she is taking and let me know. Thanks! [facility]05-19-2025 NoteHNO ID: [id number] Author: OLGA STOKES APRN.AVA Service: ? Author Type: Nurse Practitioner Type: Progress Notes Filed: 03/14/2025 15:06 Note Text: SAHARA Arriaga is a 79 year old female [...] injury sustained years ago while working at [employer], which has contributed to her chronic pain. [...] (Patient not taking: Reported on 03/14/2025) Walker [facility] Walker with wheels and a seat Dx: [...] taking: Reported on 03/14/2025) Miscellaneous Medical Supply mis Boost Max 1 can twice daily Calcium [...] arthritis flare Doxycycline Other (more content not included)...[facility] 03-14-2025 History of Present illness Narrative* Olga Stokes APRN.SEAFOOD HARVESTER - 03/14/2025 2:40 PM EDT SUBJECTIVE Kath [...] injury sustained years ago while working at [employer], which has contributed to her chronic pain. [...] (Patient not taking: Reported on 03/14/2025) Walker [facility] Walker with wheels and a seat Dx: [...] taking: Reported on 03/14/2025) Miscellaneous Medical Supply [facility] Boost Max 1 can twice daily Calcium [...] ACTIVE PROBLEM LIST Coronary Artery Disease Involving [place] Coronary Artery of [place] Heart Without Angina Pectoris - 05/04/2020 Comment: [...] vaccination. Administer COVID-19 vaccine today. Recording using AmpIde[employer] software for draft documentation of the visit was discussed with the patient/authorized physician relations representative; all questions welcomed and answered. Patient/authorized physician relations representative agreed to proceed Portions of this [...] 05/14/2025) for recheck on new medication.. Olga Stokes APRN-AVA documented in this encounterWilson Health04-28-2025 Telephone encounter Note * Telephone Encounter - [...] Pearson RN February 21, 2025 1:33 PM [facility]04-28-2025 Miscellaneous Notes* Telephone Encounter - Kait Pearson [...] 21, 2025 1:33 PM documented in this encounterWilson Health02-24-2025 Telephone encounter Note * Telephone Encounter - Deb Yusuf MD - 12/20/2024 3:45 PM EST The following approved medication requests have been transmitted electronically. Requested Prescriptions Pending Prescriptions Disp Refills DULoxetine (CYMBALTA) 60 mg capsule 90 capsule 3 Sig: Take 1 capsule by mouth once daily. Deb Yusuf MD [facility]02-24-2025 Miscellaneous Notes* Telephone Encounter - Deb Yusuf MD - 12/20/2024 3:45 PM EST The following approved medication requests have been transmitted electronically. Requested Prescriptions Pending Prescriptions Disp Refills DULoxetine (CYMBALTA) 60 mg capsule 90 capsule 3 Sig: Take 1 capsule by mouth once daily. Deb Yusuf MD * Telephone Encounter - Joan Dawn [...] 20, 2024 12:18 PM documented in this encounterWilson Health02-24-2025 Telephone encounter Note * Telephone Encounter - [...] Dawn LPN December 20, 2024 12:18 PM [facility]01-14-2025 Telephone encounter Note* Telephone Encounter - Kait [...] Pearson RN November 09, 2024 1:53 PM [facility]01-14-2025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 the event this information is protected by the Federal Confidentiality of Alcohol and Drug Abuse Patient Records regulations: The Federal rules restrict any use of the information to criminally investigate or prosecute any alcohol or drug abuse patient.[facility] the event this information is protected by the Federal Confidentiality of Alcohol and Drug Abuse Patient Records regulations: The Federal rules restrict any use of the information to criminally investigate or prosecute any alcohol or drug abuse patient.[facility] the event this information is protected by the Federal Confidentiality of Alcohol and Drug Abuse Patient Records regulations: The Federal rules restrict any use of the information to criminally investigate or prosecute any alcohol or drug abuse patient.[facility] the event this information is protected by the Federal Confidentiality of Alcohol and Drug Abuse Patient Records regulations: The Federal rules restrict any use of the information to criminally investigate or prosecute any alcohol or drug abuse patient.[facility] the event this information is protected by the Federal Confidentiality of Alcohol and Drug Abuse Patient Records regulations: The Federal rules restrict any use of the information to criminally investigate or prosecute any alcohol or drug abuse patient.[facility] the event this information is protected by the Federal Confidentiality of Alcohol and Drug Abuse Patient Records regulations: The Federal rules restrict any use of the information to criminally investigate or prosecute any alcohol or drug abuse patient.[facility] the event this information is protected by the Federal Confidentiality of Alcohol and Drug Abuse Patient Records regulations: The Federal rules restrict any use of the information to criminally investigate or prosecute any alcohol or drug abuse patient.[facility] the event this information is protected by the Federal Confidentiality of Alcohol and Drug Abuse Patient Records regulations: The Federal rules restrict any use of the information to criminally investigate or prosecute any alcohol or drug abuse patient.[facility] the event this information is protected by the Federal Confidentiality of Alcohol and Drug Abuse Patient Records regulations: The Federal rules restrict any use of the information to criminally investigate or prosecute any alcohol or drug abuse patient.[facility] the event this information is protected by the Federal Confidentiality of Alcohol and Drug Abuse Patient Records regulations: The Federal rules restrict any use of the information to criminally investigate or prosecute any alcohol or drug abuse patient.[facility]In the event this information is protected by the Federal Confidentiality of Alcohol and Drug Abuse Patient Records regulations: The Federal rules restrict any use of the information to criminally investigate or prosecute any alcohol or drug abuse patient.[facility] HealthIn the event this information is protected by [...] or prosecute any alcohol or drug abuse patient.[facility] HealthIn the event this information is protected by the Federal Confidentiality of Alcohol and Drug Abuse Patient Records regulations: The Federal rules restrict any use of the information to criminally investigate or prosecute any alcohol or drug abuse patient.[facility] the event this information is protected by the Federal Confidentiality of Alcohol and Drug Abuse Patient Records regulations: The Federal rules restrict any use of the information to criminally investigate or prosecute any alcohol or drug abuse patient.[facility]In the event this information is protected by the Federal Confidentiality of Alcohol and Drug Abuse Patient Records regulations: The Federal rules restrict any use of the information to criminally investigate or prosecute any alcohol or drug abuse patient.[facility]In the event this information is protected by the Federal Confidentiality of Alcohol and Drug Abuse Patient Records regulations: The Federal rules restrict any use of the information to criminally investigate or prosecute any alcohol or drug abuse patient.[facility] the event this information is protected by the Federal Confidentiality of Alcohol and Drug Abuse Patient Records regulations: The Federal rules restrict any use of the information to criminally investigate or prosecute any alcohol or drug abuse patient.[facility] the event this information is protected by the Federal Confidentiality of Alcohol and Drug Abuse Patient Records regulations: The Federal rules restrict any use of the information to criminally investigate or prosecute any alcohol or drug abuse patient.[facility] Reason for Visit (unrecogniz ed section and [...] Care Teams (unrecognized sec tion and content) Battery Recharger Relationship Specialty Start Date End Date Deb Yusuf MD [address] [place] [address] PCP - General 01/15/05 Coy Chan MD [address] [address] Specialty Steel Buffer Orthopedics 09/17/16 Battery Recharger Relationship Specialty Start Date End Date Deb Yusuf MD [address] [place] [address] PCP - General 01/15/05 Coy Chan MD [address] [place] [address] Specialty Steel Buffer Orthopedics 09/17/16 Battery Recharger Relationship Specialty Start Date End Date Deb Yusuf MD [address] [place] [address] PCP - General 01/15/05 Coy Chan MD [address] [place] [address] Specialty Steel Buffer Orthopedics 09/17/16 Battery Recharger Relationship Specialty Start Date End Date Deb Yusuf MD [address] [facility] [place] [address] PCP - General 01/15/05 Coy Chan MD [address] [place] [address] Specialty Steel Buffer Orthopedics 09/17/16 Battery Recharger Relationship Specialty Start Date End Date Deb Yusuf MD [address] [facility] [place] [address] PCP - General 01/15/05 Coy Chan MD [address] [place] [address] Specialty Steel Buffer Orthopedics 09/17/16 Battery Recharger Relationship Specialty Start Date End Date Deb Yusuf MD [address] [facility] [place] [address] PCP - General 01/15/05 Coy Chan MD [address] [place] [address] Specialty Steel Buffer Orthopedics 09/17/16 Battery Recharger Relationship Specialty Start Date End Date Deb Yusuf MD [address] [facility] [place] [address] PCP - General 01/15/05 Coy Chan MD [address] [place] [address] Specialty Steel Buffer Orthopedics 09/17/16 Battery Recharger Relationship Specialty Start Date End Date Deb Yusuf MD [address] [place] [address] PCP - General 01/15/05 Coy Chan MD [address] [place] [address] Specialty Steel Buffer Orthopedics 09/17/16 Battery Recharger Relationship Specialty Start Date End Date Deb Yusuf MD [address] [place] [address] PCP - General 01/15/05 Coy Chan MD [address] [address] Specialty Steel Buffer Orthopedics 09/17/16 Battery Recharger Relationship Specialty Start Date End Date Deb Yusuf MD [address] [place] [address] PCP - General 01/15/05 Coy Chan MD [address] [address] Specialty Steel Buffer Orthopedics 09/17/16 Battery Recharger Relationship Specialty Start Date End Date Deb Yusuf MD [address] [place] [address] PCP - General 01/15/05 Coy Chan MD [address] [address] Specialty Steel Buffer Orthopedics 09/17/16 Battery Recharger Relationship Specialty Start Date End Date Deb Yusuf MD [address] [place] [address] PCP - General 01/15/05 Coy Chan MD [address] [place] [address] Specialty Steel Buffer Orthopedics 09/17/16 Battery Recharger Relationship Specialty Start Date End Date Deb Yusuf MD [address] [place] [address] PCP - General 01/15/05 Coy Chan MD [address] [address] Specialty Steel Buffer Orthopedics 09/17/16 Battery Recharger Relationship Specialty Start Date End Date Deb Yusuf MD [address] [place] [address] PCP - General 01/15/05 Coy Chan MD [address] [address] Specialty Steel Buffer Orthopedics 09/17/16 Battery Recharger Relationship Specialty Start Date End Date Deb Yusuf MD [address] [place] [address] PCP - General 01/15/05 Coy Chan MD [address] [address] Specialty Steel Buffer Orthopedics 09/17/16 Battery Recharger Relationship Specialty Start Date End Date Deb Yusuf MD [address] [place] [address] PCP - General 01/15/05 Coy Chan MD [address] [address] Specialty Steel Buffer Orthopedics 09/17/16 Jaja Kirkpatrick, SOCIAL SCIENCE TEACHER.DRAW OPERATOR [address] [place] [address] Multi Skilled Operator Internal Medicine 10/04/24 Olga Stokes SOCIAL SCIENCE TEACHER.SEAFOOD HARVESTER [address] [place] [address] Multi Skilled Operator Internal Medicine 10/04/24 Battery Recharger Relationship Specialty Start Date End Date Deb Yusuf MD [address] [place] [address] PCP - General 01/15/05 Coy Chan MD [address] [address] Specialty Steel Buffer Orthopedics 09/17/16 Jaja Kirkpatrick, SOCIAL SCIENCE TEACHER.DRAW OPERATOR [address] [place] [address] Multi Skilled Operator Internal Medicine 10/04/24 Olga Stokes SOCIAL SCIENCE TEACHER.SEAFOOD HARVESTER [address] [place] [address] Multi Skilled Operator Internal Medicine 10/04/24 Battery Recharger Relationship Specialty Start Date End Date Deb Yusuf MD [address] [place], [place] [address] PCP - General 01/15/05 Coy Chan MD [address] [address] Specialty Steel Buffer Orthopedics 09/17/16 Jaja Kirkpatrick, SOCIAL SCIENCE TEACHER.DRAW OPERATOR [address] [place] [address] Multi Skilled Operator Internal Medicine 10/04/24 Olga Stokes SOCIAL SCIENCE TEACHER.SEAFOOD HARVESTER [address] [place] [address] Multi Skilled Operator Internal Medicine 01/18/25 Battery Recharger Relationship Specialty Start Date End Date Deb Yusuf MD [address] [place] [address] PCP - General 01/15/05 Coy Chan MD [address] [address] Specialty Steel Buffer Orthopedics 09/17/16 Jaja Kirkpatrick, SOCIAL SCIENCE TEACHER.DRAW OPERATOR [address] [place] [address] Multi Skilled Operator Internal Medicine 10/04/24 Olga Stokes SOCIAL SCIENCE TEACHER.SEAFOOD HARVESTER [address] [place] [address] [facility] Internal Medicine 01/18/25 Battery Recharger Relationship Specialty Start Date End Date Deb Yusuf MD [address] [place], [place] [address] PCP - General 01/15/05 Coy Chan MD [address] [place] [address] Specialty Steel Buffer Orthopedics 09/17/16 Olga Stokes SOCIAL SCIENCE TEACHER.SEAFOOD HARVESTER [address] [facility] [place] [address] Multi Skilled Operator Internal Medicine 01/18/25 Jaja Kirkpatrick, SOCIAL SCIENCE TEACHER.DRAW OPERATOR [address] [facility] [place] [address] Multi Skilled Operator Internal Medicine 03/16/25 Battery Recharger Relationship Specialty Start Date End Date Deb Yusuf MD [address] [facility] [place] [address] PCP - General 01/15/05 Coy Chan MD [address] [place] [address] Specialty Steel Buffer Orthopedics 09/17/16 Olga Stokes SOCIAL SCIENCE TEACHER.SEAFOOD HARVESTER [address] [facility] [place] [address] Multi Skilled Operator Internal Medicine 01/18/25 Jaja Kirkpatrick, SOCIAL SCIENCE TEACHER.DRAW OPERATOR [address] [facility] [place] [address] Multi Skilled Operator Internal Medicine 03/16/25 Team Status: Active Member Role/Relationship Status Dates Dr. Deb Yusuf MD Primary Care Provider Active Team Status: Inactive Member Role/Relationship Status Dates Dr. Deb Yusuf MD Primary Care Provider Active Start: May 08, 2025 End: May 08, 2025 Dr. Kev Nelson DO Emergency Provider Active Start: May 08, 2025 End: May 08, 2025 Battery Recharger Relationship Specialty Start Date End Date Deb Yusuf MD [address] [place], [place] [address] PCP - General 01/15/05 Coy Chan MD [address] [place], [place] [address] Specialty Steel Buffer Orthopedics 09/17/16 Olga Stokes, SOCIAL SCIENCE TEACHER.SEAFOOD HARVESTER [address] [place], [place] [address] Multi Skilled Operator Internal Medicine 01/18/25 Jaja Kirkpatrick, SOCIAL SCIENCE TEACHER.DRAW OPERATOR [address] [place], [place] [id number] Multi Skilled Operator Internal Medicine 03/16/25 Team Status: Active Member Role/Relationship Status Dates Dr. Deb Yusuf MD Primary Care Provider Active Start: May 11, 2025 Dr. Virgil Corrales DO Emergency Provider Active Start: May 11, 2025 Dr. Ifeanyi Shaikh DO Admit Provider Active Start: May 11, 2025 Dr. Ifeanyi Shaikh DO Attending Provider Active Start: May 11, 2025 Dr. Ifeanyi Shaikh DO Referring Provider Active Start: May 11, 2025 Team Status: Inactive Member Role/Relationship Status Dates Dr. Deb Yusuf MD Primary Care Provider Active Start: May 08, 2025 End: May 08, 2025 Dr. Kev Nelson DO Attending Provider Active Start: May 08, 2025 End: May 08, 2025 Dr. Kev Nelson , Emergency Provider Active Start: May 08, 2025 End: May 08, 2025 Team Status: Inactive Member Role/Relationship Status Dates Dr. Deb Yusuf MD Primary Care Provider Active Start: May 11, 2025 End: May 17, 2025 Dr. Virgil Corrales DO Emergency Provider Active Start: May 11, 2025 End: May 17, 2025 Dr. Ifeanyi Shaikh DO Admit Provider Active Start: May 11, 2025 End: May 17, 2025 Dr. Ifeanyi Shaikh DO Referring Provider Active Start: May 11, 2025 End: May 17, 2025 Dr. Ifeanyi Shaikh DO Other Provider Active Start: May 11, 2025 End: May 17, 2025 Tarun Cheng MD Other Provider Active Start: May 11, 2025 End: May 17, 2025 Dr. Steffen Crowley DO Attending Provider Active Start: May 11, 2025 End: May 17, 2025 Dr. Ifeanyi Fernandez MD Other Provider Active Star t: May 11, 2025 End: May 17, 2025 Team Status: Active Member Role/Relationship Status Dates Dr. Deb Yusuf MD Primary Care Provider Active Start: May 12, 2025 Dr. Virgil Corrales DO Emergency Provider Active Start: May 12, 2025 Dr. Ifeanyi Shaikh DO Admit Provider Active Start: May 12, 2025 Dr. Ifeanyi Shaikh DO Other Provider Active Start: May 12, 2025 Dr. Ifeanyi Fernandez MD Attending Provider Active Start: May 12, 2025 Dr. Ifeanyi Fernandez MD Other Provider Active Star t: May 12, 2025 Dr. Darren Edmond MD Other Provider Active Sta rt: May 12, 2025 Team Status: Active Member Role/Relationship Status Dates Dr. Deb Yusuf MD Primary Care Provider Active Start: May 12, 2025 Dr. Virgil Corrales DO Emergency Provider Active Start: May 12, 2025 Dr. Ifeanyi Shaikh DO Admit Provider Active Start: May 12, 2025 Dr. Ifeanyi Shaikh DO Referring Provider Active Start: May 12, 2025 Dr. Ifeanyi Shaikh DO Other Provider Active Start: May 12, 2025 Dr. Ifeanyi Fernandez MD Other Provider Active Star t: May 12, 2025 Tarun Cheng MD Attending Provider Active St art: May 12, 2025 Team Status: Active Member Role/Relationship Status Dates Dr. Deb Yusuf MD Primary Care Provider Active Start: May 13, 2025 Dr. Virgil Corrales DO Emergency Provider Active Start: May 13, 2025 Dr. Ifeanyi Shaikh DO Admit Provider Active Start: May 13, 2025 Dr. Ifeanyi Shaikh DO Other Provider Active Start: May 13, 2025 Dr. Ifeanyi Fernandez MD Attending Provider Active Start: May 13, 2025 Dr. Ifeanyi Fernandez MD Other Provider Active Star t: May 13, 2025 Tarun Chneg MD Other Provider Active Start: May 13, 2025 Team Status: Active Member Role/Relationship Status Dates Dr. Deb Yusuf MD Primary Care Provider Active Start: May 14, 2025 Dr. Virgil Corrales DO Emergency Provider Active Start: May 14, 2025 Dr. Ifeanyi Shaikh DO Admit Provider Active Start: May 14, 2025 Dr. Ifeanyi Shaikh DO Other Provider Active Start: May 14, 2025 Dr. Ifeanyi Fernandez MD Attending Provider Active Start: May 14, 2025 Dr. Ifeanyi Fernandez MD Other Provider Active Star t: May 14, 2025 Tarun Cheng MD Other Provider Active Start: May 14, 2025 Team Status: Active Member Role/Relationship Status Dates Dr. Deb Yusuf MD Primary Care Provider Active Start: May 15, 2025 Dr. Virgil Corrales DO Emergency Provider Active Start: May 15, 2025 Dr. Ifeanyi Shaikh DO Admit Provider Active Start: May 15, 2025 Dr. Ifeanyi Shaikh DO Referring Provider Active Start: May 15, 2025 Dr. Ifeanyi Shaikh DO Other Provider Active Start: May 15, 2025 Dr. Ifeanyi Fernandez MD Attending Provider Active Start: May 15, 2025 Dr. Ifeanyi Fernandez MD Other Provider Active Star t: May 15, 2025 Tarun Cheng MD Other Provider Active Start: May 15, 2025 Team Status: Active Member Role/Relationship Status Dates Dr. Deb Yusuf MD Primary Care Provider Active Start: May 16, 2025 Dr. Virgil Corrales DO Emergency Provider Active Start: May 16, 2025 Dr. Ifeanyi Shaikh DO Admit Provider Active Start: May 16, 2025 Dr. Ifeanyi Shaikh DO Referring Provider Active Start: May 16, 2025 Dr. Ifeanyi Shaikh DO Other Provider Active Start: May 16, 2025 Tarun Cheng MD Other Provider Active Start: May 16, 2025 Dr. Steffen Crowley DO Attending Provider Active Start: May 16, 2025 Dr. Steffen Crowley DO Other Provider Active S tart: May 16, 2025 Dr. Ifeanyi Fernandez MD Other Provider Active Star t: May 16, 2025 Team Status: Active Member Role/Relationship Status Dates Dr. Deb Yusuf MD Primary Care Provider Active Start: May 17, 2025 Dr. Virgli Corrales DO Emergency Provider Active Start: May 17, 2025 Dr. Ifeanyi Shaikh DO Admit Provider Active Start: May 17, 2025 Dr. Ifeanyi Shaikh DO Referring Provider Active Start: May 17, 2025 Dr. Ifeanyi Shaikh DO Other Provider Active Start: May 17, 2025 Tarun Cheng MD Other Provider Active Start: May 17, 2025 Dr. Steffen Crowley DO Attending Provider Active Start: May 17, 2025 Dr. Steffen Crowley DO Other Provider Active S tart: May 17, 2025 Dr. Ifeanyi Fernandez MD Other Provider Active Star t: May 17, 2025 INFORMATION SOURCE (unrecogn ized section and content) DATE CREATED AUTHOR 03/16/2025 [facility] DATE CREATED AUTHOR AUTHOR'S ORGANIZ ATION 06/05/2025 [facility] y [facility] Goals (unrecognized section and content) Goals [...] BE BASED ON THE PRIMARY CLINICAL RECORDS. [facility] CORD:USE [employer] [facility]. provides no warranty or guarantee of the accuracy or completeness of information in this document.
== END | disposition home or self-care (01) ==
LOC: LAB 12:51
PROVIDERS: PCP Internal Medicine; Referring Provider Family Medicine; Visit Provider Family Medicine
DX: I10 Essential (primary) hypertension (principal)